=== PATIENT | male | born 1960 ===

== ENCOUNTER 2025-02-04 13:36 | Inpatient (IN) | payer MEDICARE, MEDICAID, SELFPAY ==
--- OUTSIDE RECORDS SUMMARY | 2025-01-27 12:17 | XMS_ITS | Encounter Summary ---
Author Organization [facility] Address [address] [place] [id number] Care Team Providers Care Retail Presentation Specialist Name Role Phone System, Provider Not In Primary Care Provider Un available Reason for Referral * Amb Referral: Home Health (Routine) - Authorized Specialty Diagnoses / Procedures Referred By Kimber t Referred To Contact Home Health Services Diagnoses Acute hyperkalemia Gelacio Garcia MD [address] [place] [id number] Phone: tel: fax: Referral ID Status Reason Start Date Expiration Date V isits Requested Visits Authorized [id number] Authorized 01/30/2025 04/25/2026 999 999 Scheduling Instructions FOR HOME HEALTH SERVICES, PLEASE HAVE THE FOLLOWING AVAILABLE AT THE TIME OF YOUR FIRST HOME VISIT: - All Medication Bottles *(in order for the medication to be reviewed for your education and safety. Medication errors are a significant factor in re-hospitalizations that we want to prevent.)* - Including non-prescription medications that you may not take every day - New prescription medications - Prescription Creams, Lotions, Eye Drops - Current Insurance Card - Any Health Care Proxy or Advanced Directive paperwork - Any assistive devices that you currently use such as cane, glasses and hearing aids if applicable - Any wound care supplies sent home with you from doctor s office or hospital if applicable YOU WILL RECEIVE A CALL TO SET UP YOUR HOME HEALTH VISIT THAT MAY COME FROM AN U NKNOWN TELEPHONE NUMBER FROM ONE OF OUR NURSES OR THERAPISTS. PLEASE HAVE PETS SECURED IN AN AREA AWAY FROM WHERE PATIENT WILL BE RECEIVING CARE. CALL OUR AGENCY IF YOU HAVE ANY QUESTIONS. Reason for Visit * Reason Comments Weakness Fall * Auth/Cert (Routine) Specialty Diagnoses / Procedures Referred By Contac t Referred To Contact Diagnoses Hyperkalemia Acute hyperkalemia Acute blood loss anemia Transaminitis History of noncompliance with medical treatment Pleural effusion, right Renal cyst, tonto apache, hemorrhage Effusion of left knee Multiple falls Contusion of left knee, initial encounter Closed fracture of multiple ribs of right side, initial encounter Alcohol use disorder Depression, unspecified depression type Procedures x Emma Siddiqi MD [address] [place] [id number] Phone: tel: [phone] fax: Referral ID Status Reason Start Date Expiration Date Visits Re quested Visits Authorized [id number] 1 1 Encounter Details Date Type Department Care Team (Latest Contact Info) Description 01/27/2025 12:17 PM EST - 01/30/2025 3:29 PM EST Hospital Encounter [address] [id number] Leticia Gilmore MD [address] [place] [id number] Emma Siddiqi MD [address] [place] [phone] (Work) Gelacio Garcia MD [address] [place] [id number] Acute hyperkalemia (Primary Dx); History of noncompliance with medical treatment; Depression, unspecified depression type; Alcohol use disorder; Multiple falls; Contusion of left knee, initial encounter; Closed fracture of multiple ribs of right side, initial encounter; Pleural effusion, right; Renal cyst, tonto apache, hemorrhage; Acute blood loss anemia; Transaminitis; Effusion of left knee; Tachycardia; Abnormal electrocardiography Discharge Disposition: Home-Health Care [facility] [place] Social History Tobacco Use Types Packs/Day Years Used Date Smoking Tobacco: Every Day Cigarettes Alcohol Use Standard Drinks/Week Comments Yes 28 (1 standard drink = 0.6 oz pu re alcohol) 1 1/2 pints daily Social Connection and Isolation Panel Answer Date Recorded Frequency of Communication with Friends and Fami ly Not on file 03/10/2024 Frequency of Social Gatherings with Friends and Family Not on file 03/10/2024 Attends Anabaptist Services Not on file 03/10 Active Member of Clubs or Organizations Not on f ile 03/10/2024 Attends Club or Organization Meetings Not on giuseppe e 03/10/2024 Are you , , di vorced, , never , or living with a partner? Never 03/10/2024 Exercise Vital Sign Answer Date Recorde d On average, how many days pe r week do you engage in moderate to strenuous exercise (like a brisk walk)? 0 days Minutes of Exercise per Session Not on file 02/10/2023 Humiliation, Afraid, Rape, and Kick questionnair e Answer Date Recorded Within the last year, have y ou been afraid of your partner or ex-partner? No 01/28/2025 Within the last year, have y ou been humiliated or emotionally abused in other ways by your partner or ex-partner? No Within the last year, have y ou been kicked, hit, slapped, or otherwise physically hurt by your partner or ex-partner? No 01/28/2025 Within the last year, have y ou been raped or forced to have any kind of sexual activity by your partner or ex-partner? No 01/28/2025 AUDIT-C Answer Date Recorded Q1: How often do you have a drink containing alcohol? 4 or more times a week 01/28/2025 Q2: How many drinks containi ng alcohol do you have on a typical day when you are drinking? 7 to 9 Q3: How often do you have si x or more drinks on one occasion? Weekly 01/28/2025 Overall Financial Resource Strain (CARDIA) Answe r Date Recorded How hard is it for you to pa y for the very basics like food, housing, medical care, and heating? Somewhat hard 01/28/[address] [facility] Health - Occupational Stress Questionnaire Answer Date Recorded Do you feel stress - tense, restless, nervous, or anxious, or unable to sleep at night because your mind is troubled all the time - these days? Rather much 01/28/2025 Hunger Vital Sign Answer Date Recorded Within the past 12 months, y ou worried that your food would run out before you got the money to buy more. Never true 01/29/20 Within the past 12 months, t he food you bought just didn't last and you didn't have money to get more. Never true 01/28/2025 PRAPARE - Transportation Answer Date Re corded In the past 12 months, has l ack of transportation kept you from medical appointments or from getting medications? No 07/2024 In the past 12 months, has l ack of transportation kept you from meetings, work, or from getting things needed for daily living? No 01/28/2025 Housing Stability Vital Sign Answer Pascual e Recorded In the last 12 months, was t here a time when you were not able to pay the mortgage or rent on time? Yes 01/28/2025 Number of Times Moved in the Last Year Not on fi le 01/28/2025 At any time in the past 12 m [facility], were you homeless or living in a care home (including now)? Yes 01/28/2025 B1300 Health Literacy Answer Date Recor ded How often do you need to hav e someone help you when you read instructions, pamphlets, or other written material from your doctor or pharmacy? Sometimes 01/28/2025 [facility] Utilities Answer Date Recorded In the past 12 months has th e electric, gas, oil, or water company threatened to shut off services in your home? Patient declined 01/27/2025 Food Insecurity Answer Date Recorded Within the past 12 months, y ou worried that your food would run out before you got the money to buy more. Never true 01/29/20 Within the past 12 months, t he food you bought just didn't last and you didn't have money to get more. Never true 01/28/2025 Intimate Partner Violence Answer Date R ecorded Within the last year, have y ou been humiliated or emotionally abused in other ways by your partner or ex-partner? No Within the last year, have y ou been afraid of your partner or ex-partner? No 01/28/2025 Within the last year, have y ou been kicked, hit, slapped, or otherwise physically hurt by your partner or ex-partner? No 01/28/2025 Within the last year, have y ou been raped or forced to have any kind of sexual activity by your partner or ex-partner? No 01/28/2025 Housing Stability Answer Date Recorded Unstable Housing in the Last Year Not on file 01/28/2025 In the last 12 months, was t here a time when you were not able to pay the mortgage or rent on time? Yes 01/28/2025 [address] of Places Lived in the Last Year Not on f ile 01/28/2025 AUDIT C Answer Date Recorded How often have you had a dri nk containing alcohol, in the past year? 4 01/27/2025 How many standard drinks con taining alcohol have you had on a typical day when you are drinking, in the past year? 3 1 03/29/2024 How often have you had six o r more drinks on one occasion, in the past year? 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 Not on file Not on fi le Not on file documented as of this encounter Last Filed Vital Signs Vital Sign Reading Time Taken Comments Blood Pressure 110/75 01/30/2025 2:00 PM EST Pulse 81 01/30/2025 2:00 PM EST Temperature 36.8 C (98.2 F) 01/30/2025 2:00 PM EST Respiratory Rate 18 01/30/2025 2:00 PM EST Oxygen Saturation 97% 01/30/2025 2:00 PM EST Inhaled Oxygen Concentration - - Weight 79.8 kg (175 lb 14.4 oz) 01/30/2025 6:00 AM EST Height 177.8 cm (5' 10 ) 01/27/2025 12: 21 PM EST Body Mass Index 25.24 01/27/2025 12:21 PM EST documented in this encounter Functional Status * AUDIT-C Score Answer Date of Assessment Author 10 01/28/2025 3:16 PM Elsa Delacruz LICSW * Question Answer Date of Assessment Author Q1: How often do you have a drink containing alcohol? 4 or more times a week 01/28/2025 3:16 PM Elsa Leigh LICSW Q2: How many drinks containing alcohol do you have on a typical day when you are drinking? 7 to 9 01/28/2025 3:16 PM Elsa Leigh LICSW Q3: How often do you have six or more drinks on one occasion? Weekly 01/28/2025 3:16 PM Elsa Leigh LICSW * Do you have serious difficulty walking or climbing stairs? Answer Date of Assessment Author Yes 01/27/2025 12:32 PM Luzma Alex * Do you have difficulty dressing or bathing? Answer Date of Assessment Author No 01/27/2025 12:32 PM Luzma Alex * Because of a physical, mental, or emotional condition, do you have difficulty doing errands alone such as visiting the doctor? Answer Date of Assessment Author No 01/27/2025 12:32 PM Luzma Alex documented as of this encounter Discharge Instructions * Discharge Instr-Facility, Services & DME* Mary Garza RN - 01/29/2025 1:45 PM EST [facility] [employer] (EXTERNAL) [address] [facility] [address] [place] [address] P- F- * Attachments The following attachments cannot be sent through Care Everywhere. * Planning to Quit Smoking (Cymro) documented in this encounter Medications at Time of Discharge ferrous sulfate 324 mg (65 mg iron) TbEC Take 1 tablet (324 mg total) by mouth daily with breakfast. folic acid (FOLVITE) 1 MG tablet Take 1 tablet (1 mg total) by mouth daily. 14 tablet 02/28/2023 gabapentin (NEURONTIN) 100 MG capsule Take 1 capsule (100 mg total) by mouth at bedtime. 30 capsule 01/30/2025 hydrOXYzine HCL (ATARAX) 10 MG tablet Take 1 tablet (10 mg total) by mouth every 8 hours as needed for anxiety. 90 tablet 03/12/2024 lamoTRIgine (LaMICtal) 25 MG tablet Take 1 tablet (25 mg total) by mouth in the morning. LOKELMA 5 gram PwPk powder packet Take 1 packet (5 g total) by mouth daily with breakfast. 07/07/2024 melatonin 3 mg Tab tablet Take 1 tablet (3 mg total) by mouth every evening. 30 tablet 03/12/2024 midodrine (PROAMATINE) 2.5 MG tablet Take 1 tablet (2.5 mg total) by mouth daily as needed (sbp <100mm Hg). 30 tablet 12/29/2024 OLANZapine (ZyPREXA) 10 MG tablet Take 1 tablet (10 mg total) by mouth every morning & every evening. 20 tablet 04/21/2024 REXULTI 3 mg Tab Take 1 tablet (3 mg total) by mouth in the morning. 12/06/2023 sertraline (ZOLOFT) 100 MG tablet Take 1 tablet (100 mg total) by mouth every morning & every evening. 20 tablet 04/21/2024 sevelamer carbonate (RENVELA) 800 mg tablet Take 1 tablet (800 mg total) by mouth 3 times a day with meals. 30 tablet 04/21/2024 thiamine (Vitamin B1) 100 MG tablet Take 1 tablet (100 mg total) by mouth in the morning. 07/16/2023 acetaminophen (TYLENOL) 500 MG tablet Take 1 tablet (500 mg total) by mouth every 6 hours as needed for pain. aspirin 81 MG EC tablet Take 1 tablet (81 mg total) by mouth daily for 30 days. 30 tablet 04/21/2024 clopidogreL (PLAVIX) 75 mg tablet Take 1 tablet (75 mg total) by mouth daily for 20 days. 20 tablet 04/22/2024 metoprolol tartrate (LOPRESSOR) 25 MG tablet Take 0.5 tablets (12.5 mg total) by mouth in the morning and 0.5 tablets (12.5 mg total) before bedtime. 30 tablet 01/30/2025 pantoprazole (PROTONIX) [address] tablet Take 1 tablet (40 mg total) by mouth every morning & every evening for 30 days. 30 tablet 04/21/2024 documented as of this encounter Progress Notes * JAS Arteaga - 01/30/2025 2:51 PM EST Care Coordination - Discharge Planning Note Patient: Sushant Christianson : 1960 Attending: Gelacio Garcia MD Admit Date: 01/27/2025 Inpatient Status Admit Date: 01/27/25 Primary Care Physician: Provider Not In System The patient will be discharged home today with his [facility] svs resuming- svs booked in [facility], d/c pwk faxed to [facility] as requested. Pt up at edge of bed, dressed and pleased with plan. Discussedhis work with PT today, he declines STR, states he will only head home. He states he can manage the2 steps into his apt, states his GF Estela will be there to meet him, states he has apt keys on him as well. Pt states his T/Th/Sat [place] rides are set up for 11:45a pick ups, plans to go to [place] tomorrow. Sobriety work encouraged, pt has met with and has resources. Pt to f/u with [facility] and his [facility] outpt mental health providers. Patient Goal(s): to stay well Preference for discharge: home The plan was discussed with the patient and they are in agreement with the plan. Medicare IM Notice was given to the patient. The discharge information was faxed/conveyed to the community provider. The MD and Nurse was alerted to the plan. Transport arranged: PT1 secured online, chair van transport booked through [facility]. JAS Arteaga 01/30/2025 2:51 PM * Annette Stanton MD - 01/30/2025 1:53 PM EST Nephrology Daily progress note Date of Service: 01/30/2025 Patient: Sushant Christianson : 1960 Admission Date: 01/27/2025 CSN: [id number] Room/Bed: 316/1 Reason For Consultation: Hyperkalemia Subjective and interval history: Patient has no complaint. Hemodialysis yesterday with UF 2.8 L. Synopsis: Sushant Christianson is a 65 y.o. male with past medical history significant for ESRD on hemodialysis, polysubstance abuse including cocaine and alcohol, COPD, history of alcohol withdrawal syndrome and DTs presented emergency with fall and generalized weakness. Patient reported his last session of hemodialysis was on last Saturday 01/20 and missed 2 sessions since then. He felt very depressedand did not want to leave the house and not going to dialysis center. Patient denies shortness of breath at rest or swelling of her extremities. ED course: Blood pressure 171/118 mmHg, pulse rate 85 bpm, respiration rate 18/min, temperature 97.8, saturation 98% on room air. Laboratory findings reveal elevated potassium level 6.0, BUN of 95 and creatinine of 15.4. EKG revealed normal sinus rhythm and left axis deviation, right bundle branch block. No EKG changes for hyperkalemia. Patient was given medical treatment for hyperkalemia including insulin, dextrose, calcium gluconate and Lokelma. Nephrology History: ESRD, documentation unavailable, but presumed hypertension/microvascular disease Started on in center hemodialysis 02/14, , Sunday schedule at [place] [facility] Followed by Dr. Genevieve Grimaldo as an outpatient Uses a tunneled catheter for dialysis access Still with fairly good urine output and missed several dialysis treatments. Current Medications: Scheduled Meds:Scheduled Medications[1] Continuous Infusions:Infusions Meds[2] PRN Meds:.PRN Medications[3] Medications Prior to Admission: Prescriptions Prior to Admission[4] Allergies: Allergies[5] Review of Systems: See history of present illness. No gross hematuria, no rash. General: Denies significant weight change, fatigue, fevers, chills, or sweats Skin: Denies any rashes or notable skin lesions CV: Denies chest pain, palpitations, claudication, edema Pulm: Denies SOB, cough, hemoptysis GI: Denies nausea, vomiting, abdominal pain, diarrhea Neuro: Denies headache, visual changes, paresthesias, dizziness, lightheadedess, gait instability, weakness, or falls : Denies back or flank pain, hematuria, dysuria Remainder of ROS negative. Physical Exam: Min/Max vitals over last 24 hours: BP Min: 118/72 Max: 157/90 Temp Min: 97.9 ??F (36.6 ??C) Max: 98.7 ??F (37.1 ??C) Pulse Min: 75 Max: 114 Resp Min: 18 Max: 22 SpO2 Min: 93 % Max: 99 % Weight Min: 79.8 kg (175 lb 14.4 oz) Max: 79.8 kg (175 lb 14.4 oz) Admission VS: BP (!) 157/90 (BP Location: Left arm, Patient Position: Lying) Pulse 79 Temp 98.2??F (36.8 ??C) (Axillary) Resp 18 Ht 1.778 m (5' 10 ) Wt 79.8 kg (175 lb 14.4 oz) SpO2 98% BMI 25.24 kg/m?? Pain Location: Head (01/30/25 0008) O2 Device: None (Room air) (01/30/25 1000) SpO2: 98 % (01/30/25 0850) General Appearance: Alert, cooperative, no distress Eyes: pale, not icteric HEENT: No JVD Lungs: Bilateral air entry +, no wheezing, no rales or rhonchi Heart: Regular rate and rhythm, No murmur, no gallop Abdomen: Soft, non-tenderness or rebound tenderness Extremities: No edema Pulses: intact Neurologic: Alert, Awake, Oriented x 4, no focal Access: Right IJ tunneled dialysis catheter Labs, Imaging & Other Studies: Labs: Results from last 7 days Lab Units 01/30/25 0534 01/29/25 0407 01/28/25 0517 WBC K/uL 8.96 6.28 6.65 HEMOGLOBIN g/dL 8.0* 8.3* 7.8* HEMATOCRIT % 26.1* 26.3* 24.2* PLATELETS K/uL 261 261 240 Results from last 7 days Lab Units 01/30/25 0534 01/29/25 0407 01/28/25 0517 01/27/25 1538 01/27/25 1240 SODIUM mmol/L 138 138 139 < > 137 POTASSIUM mmol/L 4.9 3.5 4.6 < > 6.0* CHLORIDE mmol/L 100 100 100 < > 96* CO2 mmol/L 25 27 27 < > 23* BUN mg/dL 45* 13 40* < > 95* CREATININE mg/dL 7.10* 3.20* 8.40* < > 15.40* CALCIUM mg/dL 9.1 9.5 9.3 < > 9.1 TOTAL PROTEIN g/dL -- -- 6.8 -- 7.5 BILIRUBIN TOTAL mg/dL -- -- 0.4 -- 0.4 ALK PHOS U/L -- -- 316* -- 382* ALT U/L -- -- 40 -- 54* AST U/L -- -- 31 -- 52* GLUCOSE mg/dL 91 100 103* < > 113* < > = values in this interval not displayed. Results from last 7 days Lab Units 01/27/25 1407 APTT s 33 INR 1.1 Lab Results Component Value Date ALT 40 01/28/2025 AST 31 01/28/2025 GGT 55 02/14/2010 ALKPHOS 316 (H) 01/28/2025 BILITOT 0.4 01/28/2025 ALB 3.7 01/28/2025 Lab Results Component Value Date CRP 182.0 (H) 08/06/2023 UA: Lab Results Component Value Date COLORU Yellow 01/28/2025 CLARITYU Clear 01/28/2025 LABPH 8.0 01/28/2025 PROTEINUR 100 mg/dL (A) 01/28/2025 GLUCOSEU 50 mg/dL (A) 01/28/2025 KETONESU 5 mg/dL (A) 01/28/2025 BLOODU Negative 01/28/2025 LEUKOCYTEUR Trace (A) 01/28/2025 NITRITE Negative 01/28/2025 WBCU 13 (H) 01/28/2025 RBCU 1 01/28/2025 HYALINECAST 2-3 (A) 12/14/2022 BACTERIA Few (A) 01/28/2025 Results for orders placed or performed during the hospital encounter of 01/27/25 Culture, Aerobic, Urine Collection Time: 01/28/25 1:46 AM Specimen: Urine, Mid-stream Collection Result Value Ref Range Culture <10,000 Gram Positive [facility]: XR Knee 4+ Vw Left (Trauma) Result Date: 01/27/2025 Soft tissue swelling. No acute fracture identified. CT Chest Abdomen Pelvis Trauma With Contrast Result Date: 01/27/2025 1. No convincing evidence of acute traumatic injury. 2. Subacute fractures of the right posterior 9-11th ribs with small effusion. 3. Left renal cyst which previously appeared simple, now hemorrhagic. Rupture is suspected (perinephric fluid and fluid about tail of the pancreas). No active bleeding.4. Somewhat collapsed and featureless transverse colon could reflect colitis. 5. Other findings as above. CT Head Anticoag Without Contrast Result Date: 01/27/[address]: No acute intracranial process. Generalized tissue loss, more than expected for the patient's age. Small-vessel ischemic disease, as before. CT of the cervical spine: Limited study secondary to patient motion. No acute displaced fracture. Reversal of the normal cervical lordosis, as before,likely related to degenerative disc disease. Multilevel degenerative disc disease. Facet joint hypertrophy and narrowing of the neural foramina at multiple levels. Partially visualized right-sided central venous catheter. CT Cervical Spine WO IV Contrast Result Date: 01/27/[address]: No acute intracranial process. Generalized tissue loss, more than expected for the patient's age. Small-vessel ischemic disease, as before. CT of the cervical spine: Limited study secondary to patient motion. No acute displaced fracture. Reversal of the normal cervical lordosis, as before,likely related to degenerative disc disease. Multilevel degenerative disc disease. Facet joint hypertrophy and narrowing of the neural foramina at multiple levels. Partially visualized right-sided central venous catheter. Assessment & Plan: Sushant Christianson is a 65 y.o. male who presents with generalized weakness and missed hemodialysis for 2 sessions noted to have hyperkalemia and uremia. ESRD on hemodialysis Sunday, , Sunday Hyperkalemia Uremia Benign hypertensive kidney disease Anemia due to ESRD Assessment: Stable hemodialysis. Patient blood pressure is elevated above 140/90 mmHg and no sign of volume overload. Recommendations: Will arrange hemodialysis on Sunday, , Sunday. Metabolic profile and CBC will be reviewed on a daily basis. HD: UF 2-3 liters as tolerated. Time 3.0 hours. Access right IJ tunneled dialysis catheter Dialysate 2 K, 2.5 Ca. Dialyzer F180 Blood flow (Qb) 400 ml/min, Dialysate flow (Qd) 800 ml/min Anticoagulation none ESRD related issues: 1. Anemia of chronic renal disease -Retacrit 00152 units IV on next HD 2. Electrolytes / acid-base - adequately controlled on intermittent hemodialysis 3. Blood pressure / volume -blood pressure elevated. Please resume home blood pressure medications. 4. Renal osteodystrophy / calcium / phosphorus - follow phosphorus every 2-3 days 5. Medications - dose for ESRD/hemodialysis Thank you very much for involving us in the care of your patient. I will continue to follow along as consult service and please let me know if I can be at all helpful during the remainder of hospitaladmission. Signed by: Annette Stanton MD [1] aspirin, 81 mg, Oral, Daily atorvaSTATin, 80 mg, Oral, QHS brexpiprazole, 3 mg, Oral, Daily clopidogreL, 75 mg, Oral, Daily epoetin naif-epbx, 10,000 Units, Intravenous, QTuThSa ferrous sulfate, 325 mg, Oral, Daily with breakfast multivitamin with minerals tablet, 1 tablet, Oral, Daily And folic acid, 1 mg, Oral, Daily gabapentin, 100 mg, Oral, QHS heparin (porcine), 5,000 Units, Subcutaneous, BID (0900,2100) lamoTRIgine, 25 mg, Oral, Daily melatonin, 6 mg, Oral, QPM metoprolol tartrate, 25 mg, Oral, BID OLANZapine, 10 mg, Oral, BID pantoprazole, 40 mg, Oral, BID sodium chloride, 3 mL, Intravenous, Q12H SUZETTE sertraline, 100 mg, Oral, BID sevelamer carbonate, 800 mg, Oral, TID with meals thiamine, 200 mg, Intravenous, BID Followed by [START ON 01/31/2025] thiamine, 100 mg, Oral, Daily [2] [3] acetaminophen hydrOXYzine HCL [] LORazepam FOLLOWED BY LORazepam [] LORazepam FOLLOWED BY LORazepam midodrine Insert and Maintain Peripheral IV AND sodium chloride AND sodium chloride [4] Medications Prior to Admission Medication Sig Dispense Refill Last Dose/Taking acetaminophen (TYLENOL) 500 MG tablet Take 1 tablet (500 mg total) by mouth every 6 hours as needed. aspirin 81 MG EC tablet Take 1 tablet (81 mg total) by mouth daily for 30 days. 30 tablet 0 atorvaSTATin (LIPITOR) 80 MG tablet Take 1 tablet (80 mg total) by mouth at bedtime for 30 days. 30tablet 0 clopidogreL (PLAVIX) 75 mg tablet Take 1 tablet (75 mg total) by mouth daily for 20 days. 20 tablet0 ferrous sulfate 324 mg (65 mg iron) TbEC Take 1 tablet (324 mg total) by mouth daily with breakfast. folic acid (FOLVITE) 1 MG tablet Take 1 tablet (1 mg total) by mouth daily. 14 tablet 0 hydrOXYzine HCL (ATARAX) 10 MG tablet Take 1 tablet (10 mg total) by mouth every 8 hours as needed for anxiety. 90 tablet 0 lamoTRIgine (LaMICtal) 25 MG tablet Take 1 tablet (25 mg total) by mouth in the morning. LOKELMA 5 gram PwPk powder packet Take 1 packet (5 g total) by mouth daily with breakfast. melatonin 3 mg Tab tablet Take 1 tablet (3 mg total) by mouth every evening. (Patient taking differently: Take 2 tablets (6 mg total) by mouth every evening.) 30 tablet 0 midodrine (PROAMATINE) 2.5 MG tablet Take 1 tablet (2.5 mg total) by mouth daily as needed (sbp <100mm Hg). 30 tablet 0 OLANZapine (ZyPREXA) 10 MG tablet Take 1 tablet (10 mg total) by mouth every morning & every evening. 20 tablet 0 pantoprazole (PROTONIX) [address] tablet Take 1 tablet (40 mg total) by mouth every morning & every evening for 30 days. 30 tablet 0 REXULTI 3 mg Tab Take 1 tablet (3 mg total) by mouth in the morning. sertraline (ZOLOFT) 100 MG tablet Take 1 tablet (100 mg total) by mouth every morning & every evening. 20 tablet 0 sevelamer carbonate (RENVELA) 800 mg tablet Take 1 tablet (800 mg total) by mouth 3 times a day with meals. 30 tablet 0 thiamine (Vitamin B1) 100 MG tablet Take 1 tablet (100 mg total) by mouth in the morning. [5] No Known Allergies * Rabia Mejia RN - 01/30/2025 1:00 PM EST Case Management - Progress Note Patient: Sushant Christianson : 1960 Attending: Gelacio Garcia MD Admit Date: 01/27/2025 Inpatient Status Admit Date: 01/27/25 Primary Care Physician: Provider Not In System Record reviewed. Participated in Interdisciplinary care rounds and discussed medical readiness withthe treatment team. Expected Discharge Date: 01/30/2025 Action: met with patient at bedside, anticipate clear for dc today pending PT eval, he is in agreement with dc home active with [facility] was updated in [facility] , chair car booked for ride home, working with case as well see their note today for more details. Service/Anticipated D/C Plan: Home w services RABIA Mejia RN 01/30/2025 * Gelacio Garcia MD - 01/29/2025 4:09 PM EST DAILY PROGRESS NOTE Date of Service: 01/29/2025 Patient: Sushant Christianson : 1960 CSN: [id number] SUBJECTIVE Feels better, denies withdrawals, refusing str Pertinent positives and negatives were discussed above. All other systems were reviewed and were found to be negative. OBJECTIVE Vital signs in last 24 hours BP Min: 118/72 Max: 178/96 Temp Min: 97.4 ??F (36.3 ??C) Max: 98.6 ??F (37 ??C) Pulse Min: 84 Max: 114 Resp Min: 18 Max: 18 SpO2 Min: 93 % Max: 99 % I/O (Last 24 hours) at 01/29/2025 1609 Last data filed at 01/29/2025 0811 Intake 523 ml Output 3200 ml Net -2677 ml SpO2: 99 % O2 Device: None (Room air) PHYSICAL EXAM Gen: AAOx3 Lung: clear to auscultation Heart: regular rate rhythm Abdomen: soft, non-tender,non distended Ext: no edema Neuro: speech is normal LABORATORY Results from last 7 days Lab Units 01/29/25 0407 01/28/25 0517 01/27/25 1240 WBC K/uL 6.28 6.65 8.59 HEMOGLOBIN g/dL 8.3* 7.8* 8.9* HEMATOCRIT % 26.3* 24.2* 27.6* PLATELETS K/uL 261 240 295 Results from last 7 days Lab Units 01/29/25 0407 01/28/25 0517 01/27/25 1538 01/27/25 1240 SODIUM mmol/L 138 139 136 137 POTASSIUM mmol/L 3.5 4.6 5.4* 6.0* CHLORIDE mmol/L 100 100 95* 96* CO2 mmol/L 27 27 24 23* BUN mg/dL 13 40* 97* 95* CREATININE mg/dL 3.20* 8.40* 15.20* 15.40* CALCIUM mg/dL 9.5 9.3 9.2 9.1 TOTAL PROTEIN g/dL -- 6.8 -- 7.5 BILIRUBIN TOTAL mg/dL -- 0.4 -- 0.4 ALK PHOS U/L -- 316* -- 382* ALT U/L -- 40 -- 54* AST U/L -- 31 -- 52* GLUCOSE mg/dL 100 103* 143* 113* Results from last 7 days Lab Units 01/27/25 1407 APTT s 33 INR 1.1 UA Lab Results Component Value Date COLORU Yellow 01/28/2025 CLARITYU Clear 01/28/2025 LABPH 8.0 01/28/2025 PROTEINUR 100 mg/dL (A) 01/28/2025 GLUCOSEU 50 mg/dL (A) 01/28/2025 KETONESU 5 mg/dL (A) 01/28/2025 BLOODU Negative 01/28/2025 LEUKOCYTEUR Trace (A) 01/28/2025 NITRITE Negative 01/28/2025 WBCU 13 (H) 01/28/2025 RBCU 1 01/28/2025 HYALINECAST 2-3 (A) 12/14/2022 BACTERIA Few (A) 01/28/2025 Microbiology Results for orders placed or performed during the hospital encounter of 01/27/25 Culture, Aerobic, Urine Collection Time: 01/28/25 1:46 AM Specimen: Urine, Mid-stream Collection Result Value Ref Range Culture <10,000 Gram Positive [facility] RADIOLOGY Results for orders placed or performed during the hospital encounter of 01/27/25 CT Head Anticoag Without Contrast Narrative EXAM DESCRIPTION: CT HEAD ANTICOAG WO CONTRAST; CT CERVICAL SPINE WO CONTRAST CLINICAL HISTORY: 65-year-old man brought in by ambulance from home with failure to thrive. Depression. Frequent falls. This patient takes blood thinners. Patient has not been to dialysis. ETOH. Sleep issues. Bruising on legs and left side of the chest. Last dialysis on Sunday of last week. COMPARISON: Head CT from 12/23/2024. CT of the cervical spine from 12/02/2024. TECHNIQUE: Contiguous 5 mm axial images were obtained through the head and cervical spine. Subsequently sagittal and coronal reconstructions were performed. FINDINGS: Head CT: The ventricles, sulci and cisterns remain prominent, consistent with generalized tissue loss, more than expected for the patient's age. There is no mass, mass effect or hemorrhage. No evidence of an acute territorial infarct. No extra-axial fluid collection. There is persistent patchy low attenuation in the periventricular and subcortical white matter which is nonspecific but probably reflects the sequela of small-vessel ischemic disease in a patient of this age. The visualized paranasal sinuses and mastoid air cells are well-aerated. No air-fluid levels to suggest acute sinusitis. The visualized globes appear intact. There is no evidence of an acute displaced skull fracture. CT of the cervical spine: These images are slightly degraded by patient motion. The bones are well mineralized. The normal vertebral body heights are maintained. No prevertebral soft tissue swelling. No acute displaced fracture. There is reversal of the normal cervical lordosis, as before. There is multilevel degenerative disc disease with endplate osteophytes and loss of the normal intervertebral disc spaces diffusely throughout the cervical spine but most pronounced at C2 through C6. There is bilateral facet joint hypertrophy with narrowing of the neural foramina at multiple levels. The dens appears intact. The lateral masses of C1 are normally located. There is a partially visualized central venous catheter in the right upper chest. There is atherosclerosis at the left carotid bifurcation. The thyroid gland is not well visualized. The lung apices are well-aerated. There are multiple small cervical lymph nodes in the anterior and posterior cervical triangles. Impression Head CT: No acute intracranial process. Generalized tissue loss, more than expected for the patient's age. Small-vessel ischemic disease, as before. CT of the cervical spine: Limited study secondary to patient motion. No acute displaced fracture. Reversal of the normal cervical lordosis, as before, likely related to degenerative disc disease. Multilevel degenerative disc disease. Facet joint hypertrophy and narrowing of the neural foramina at multiple levels. Partially visualized right-sided central venous catheter. CT Cervical Spine WO IV Contrast Narrative EXAM DESCRIPTION: CT HEAD ANTICOAG WO CONTRAST; CT CERVICAL SPINE WO CONTRAST CLINICAL HISTORY: 65-year-old man brought in by ambulance from home with failure to thrive. Depression. Frequent falls. This patient takes blood thinners. Patient has not been to dialysis. ETOH. Sleep issues. Bruising on legs and left side of the chest. Last dialysis on Sunday of last week. COMPARISON: Head CT from 12/23/2024. CT of the cervical spine from 12/02/2024. TECHNIQUE: Contiguous 5 mm axial images were obtained through the head and cervical spine. Subsequently sagittal and coronal reconstructions were performed. FINDINGS: Head CT: The ventricles, sulci and cisterns remain prominent, consistent with generalized tissue loss, more than expected for the patient's age. There is no mass, mass effect or hemorrhage. No evidence of an acute territorial infarct. No extra-axial fluid collection. There is persistent patchy low attenuation in the periventricular and subcortical white matter which is nonspecific but probably reflects the sequela of small-vessel ischemic disease in a patient of this age. The visualized paranasal sinuses and mastoid air cells are well-aerated. No air-fluid levels to suggest acute sinusitis. The visualized globes appear intact. There is no evidence of an acute displaced skull fracture. CT of the cervical spine: These images are slightly degraded by patient motion. The bones are well mineralized. The normal vertebral body heights are maintained. No prevertebral soft tissue swelling. No acute displaced fracture. There is reversal of the normal cervical lordosis, as before. There is multilevel degenerative disc disease with endplate osteophytes and loss of the normal intervertebral disc spaces diffusely throughout the cervical spine but most pronounced at C2 through C6. There is bilateral facet joint hypertrophy with narrowing of the neural foramina at multiple levels. The dens appears intact. The lateral masses of C1 are normally located. There is a partially visualized central venous catheter in the right upper chest. There is atherosclerosis at the left carotid bifurcation. The thyroid gland is not well visualized. The lung apices are well-aerated. There are multiple small cervical lymph nodes in the anterior and posterior cervical triangles. Impression Head CT: No acute intracranial process. Generalized tissue loss, more than expected for the patient's age. Small-vessel ischemic disease, as before. CT of the cervical spine: Limited study secondary to patient motion. No acute displaced fracture. Reversal of the normal cervical lordosis, as before, likely related to degenerative disc disease. Multilevel degenerative disc disease. Facet joint hypertrophy and narrowing of the neural foramina at multiple levels. Partially visualized right-sided central venous catheter. CT Chest Abdomen Pelvis Trauma With Contrast Narrative EXAM DESCRIPTION: CT CHEST ABDOMEN PELVIS TRAUMA W CONTRAST CLINICAL HISTORY: Falls. Failure to thrive. COMPARISON: CXR dated 12/26/2024. CT of the abdomen pelvis dated 12/20/2022. CONTRAST: 100ml of Omnipaque 350 were administered. TECHNIQUE: The standard 5 mm sequential axial images were obtained through the chest, abdomen and pelvis. Coronal and sagittal reconstructions were also obtained. The pelvis was imaged to completely assess for acute pathology. FINDINGS: Lung tian: The lungs are well aerated and clear. No significant lung nodules or masses are identified. No interstitial abnormalities are identified. There is no evidence of bronchiectasis. There is a small right pleural effusion. No pneumothorax. Heart and Mediastinum: The heart and great vessels are normal for age. No mediastinal or hilar lymphadenopathy is identified. Airways: The trachea and central bronchi are widely patent and clear without filling defects identified. Neck structures: There is a thyroid goiter. Hepatobiliary: The liver is normal. There is cholelithiasis. The intrahepatic and extrahepatic bile ducts are normal. There is calcification of the pancreas as could be seen with chronic pancreatitis.There is stranding and fluid about the tail of the pancreas, which appears secondary to ruptured left renal cyst. The spleen is normal. Genitourinary: Right adrenal gland is unremarkable. There is a 1.4 cm left adrenal nodule, unchanged. The kidneys are atrophic bilaterally. There is a 3.3 cm left renal cyst which appears acutely hemorrhagic with rupture. No active bleeding seen. No renal masses or stones. No hydronephrosis. The pelvic organs and bladder are unremarkable. Bowel and peritoneal cavity: No evidence of appendicitis. The transverse colon appears somewhat collapsed and featureless. There is diverticulosis. Elsewhere, no bowel related obstruction or perforation is detected. No ascites or peritoneal fluid collections are identified. There is no evidence of free intraperitoneal air. No abdominal wall hernia is identified. Retroperitoneum: There is no evidence of retroperitoneal or pelvic lymphadenopathy. The retroperitoneal vascular structures appear normal. Bones and soft tissues: There are subacute fractures of the right posterior 9-11th ribs. There is hardware in the right hip. There is a wedge deformity of T8. This appears to be chronic. There is gynecomastia. Impression 1. No convincing evidence of acute traumatic injury. 2. Subacute fractures of the right posterior 9-11th ribs with small effusion. 3. Left renal cyst which previously appeared simple, now hemorrhagic. Rupture is suspected (perinephric fluid and fluid about tail of the pancreas). No active bleeding. 4. Somewhat collapsed and featureless transverse colon could reflect colitis. 5. Other findings as above. XR Knee 4+ Vw Left (Trauma) Narrative EXAM DESCRIPTION: XR KNEE 4+ VW LEFT CLINICAL HISTORY: Left knee pain. Trauma. COMPARISON: No prior studies available for comparison. TECHNIQUE: 4 views submitted FINDINGS: The bones are intact and normally aligned. There is soft tissue swelling. There is no significant joint effusion. Bones are demineralized. The joint spaces appear normal. Impression Soft tissue swelling. No acute fracture identified. MEDICATIONS Scheduled Meds:Scheduled Medications[1] Continuous Infusions:Infusions Meds[2] PRN Meds:.PRN Medications[3] ASSESSMENT/PLAN 65 y.o. male PMH significant for ESRD on HD, polysubstance abuse with cocaine and alcohol, COPD, h/o alcohol withdrawal syndrome and DT's p/w fall and generalized weakness after missing dialysis. Esrd on HD tue, thurs, sat, hyperkalemia S/p calcium gluconate, insulin, glucose and lokelma as needed. Nephrology following continue. Alcohol abuse, h/o alcohol withdrawal syndrome, hypertensive and tachycardic , likely due to withdrawals, started on metoprolol, neurontin. 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 More than half of this time was spent in counseling and explaining disease process and management to patient and/or family. Full Code Health Care Proxy Contacts on File Name HCP Status Relationship HCP Last Review Date Estela Simeon Life Partner/Signif Oth Signed by: Gelacio Garcia MD [1] aspirin, 81 mg, Oral, Daily atorvaSTATin, 80 mg, Oral, QHS brexpiprazole, 3 mg, Oral, Daily clopidogreL, 75 mg, Oral, Daily epoetin naif-epbx, 10,000 Units, Intravenous, QTuThSa ferrous sulfate, 325 mg, Oral, Daily with breakfast multivitamin with minerals tablet, 1 tablet, Oral, Daily And folic acid, 1 mg, Oral, Daily gabapentin, 100 mg, Oral, QHS heparin (porcine), 5,000 Units, Subcutaneous, BID (0900,2100) lamoTRIgine, 25 mg, Oral, Daily melatonin, 6 mg, Oral, QPM metoprolol tartrate, 25 mg, Oral, BID OLANZapine, 10 mg, Oral, BID pantoprazole, 40 mg, Oral, BID sodium chloride, 3 mL, Intravenous, Q12H SUZETTE sertraline, 100 mg, Oral, BID sevelamer carbonate, 800 mg, Oral, TID with meals sodium zirconium cyclosilicate, 5 g, Oral, Daily with breakfast thiamine, 200 mg, Intravenous, BID Followed by [START ON 01/31/2025] thiamine, 100 mg, Oral, Daily [2] [3] [] LORazepam FOLLOWED BY LORazepam [] LORazepam FOLLOWED BY LORazepam midodrine Insert and Maintain Peripheral IV AND sodium chloride AND sodium chloride * Mary Garza RN - 01/29/2025 12:50 PM EST Case Management - Progress Note Patient: Sushant Christianson : 1960 Attending: Gelacio Garcia MD Admit Date: 01/27/2025 Inpatient Status Admit Date: 01/27/25 Primary Care Physician: Provider Not In System Case discussed at [facility], pt not ready for d/c. Pt Jen Jung called me [phone], she stated pt has been noncompliant with his HD runs and does miss them on occasion.Pt knows not to miss more than 1 in a row. Raymond give pt his meds in the am and them prefills his meds for the afternoon.He only lets them come 3x week.Fabiana is going to tell pt they want to come daily. I met with pt andhe is declining the need for STR.PT is rec STR. Team and Fabiana updated. Asked nsg to mobilize pt . CM to follow. Mary Garza RN CM 01/29/2025 * Annette Stanton MD - 01/29/2025 10:02 AM EST Nephrology Daily progress note Date of Service: 01/29/2025 Patient: Sushant Christianson : 1960 Admission Date: 01/27/2025 CSN: [id number] Room/Bed: 316/1 Reason For Consultation: Hyperkalemia Subjective and interval history: Patient seen and examined. Good appetite. Patient has no complaint. Synopsis: Sushant Christianson is a 65 y.o. male with past medical history significant for ESRD on hemodialysis, polysubstance abuse including cocaine and alcohol, COPD, history of alcohol withdrawal syndrome and DTs presented emergency with fall and generalized weakness. Patient reported his last session of hemodialysis was on last Saturday 01/20 and missed 2 sessions since then. He felt very depressedand did not want to leave the house and not going to dialysis center. Patient denies shortness of breath at rest or swelling of her extremities. ED course: Blood pressure 171/118 mmHg, pulse rate 85 bpm, respiration rate 18/min, temperature 97.8, saturation 98% on room air. Laboratory findings reveal elevated potassium level 6.0, BUN of 95 and creatinine of 15.4. EKG revealed normal sinus rhythm and left axis deviation, right bundle branch block. No EKG changes for hyperkalemia. Patient was given medical treatment for hyperkalemia including insulin, dextrose, calcium gluconate and Lokelma. Nephrology History: ESRD, documentation unavailable, but presumed hypertension/microvascular disease Started on in center hemodialysis 02/14, , Sunday schedule at [place] [facility] Followed by Dr. Genevieve Grimaldo as an outpatient Uses a tunneled catheter for dialysis access Still with fairly good urine output and missed several dialysis treatments. Current Medications: Scheduled Meds:Scheduled Medications[1] Continuous Infusions:Infusions Meds[2] PRN Meds:.PRN Medications[3] Medications Prior to Admission: Prescriptions Prior to Admission[4] Allergies: Allergies[5] Review of Systems: See history of present illness. No gross hematuria, no rash. General: Denies significant weight change, fatigue, fevers, chills, or sweats Skin: Denies any rashes or notable skin lesions CV: Denies chest pain, palpitations, claudication, edema Pulm: Denies SOB, cough, hemoptysis GI: Denies nausea, vomiting, abdominal pain, diarrhea Neuro: Denies headache, visual changes, paresthesias, dizziness, lightheadedess, gait instability, weakness, or falls : Denies back or flank pain, hematuria, dysuria Remainder of ROS negative. Physical Exam: Min/Max vitals over last 24 hours: BP Min: 130/83 Max: 179/101 Temp Min: 97.4 ??F (36.3 ??C) Max: 98.5 ??F (36.9 ??C) Pulse Min: 84 Max: 124 Resp Min: 18 Max: 22 SpO2 Min: 93 % Max: 99 % Admission VS: BP (!) 178/96 (BP Location: Left arm, Patient Position: Lying) Pulse (!) 95 Temp 98.2 ??F (36.8 ??C) (Oral) Resp 18 Ht 1.778 m (5' 10 ) Wt 79.8 kg (176 lb) SpO2 98% BMI 25.25 kg/m?? O2 Device: None (Room air) (01/29/25917) SpO2: 98 % (01/29/25917) General Appearance: Alert, cooperative, no distress Eyes: pale, not icteric HEENT: No JVD Lungs: Bilateral air entry +, no wheezing, no rales or rhonchi Heart: Regular rate and rhythm, No murmur, no gallop Abdomen: Soft, non-tenderness or rebound tenderness Extremities: No edema Pulses: intact Neurologic: Alert, Awake, Oriented x 4, no focal Access: Right IJ tunneled dialysis catheter Labs, Imaging & Other Studies: Labs: Results from last 7 days Lab Units 01/29/25 0407 01/28/25 0517 01/27/25 1240 WBC K/uL 6.28 6.65 8.59 HEMOGLOBIN g/dL 8.3* 7.8* 8.9* HEMATOCRIT % 26.3* 24.2* 27.6* PLATELETS K/uL 261 240 295 Results from last 7 days Lab Units 01/29/25 0407 01/28/25 0517 01/27/25 1538 01/27/25 1240 SODIUM mmol/L 138 139 136 137 POTASSIUM mmol/L 3.5 4.6 5.4* 6.0* CHLORIDE mmol/L 100 100 95* 96* CO2 mmol/L 27 27 24 23* BUN mg/dL 13 40* 97* 95* CREATININE mg/dL 3.20* 8.40* 15.20* 15.40* CALCIUM mg/dL 9.5 9.3 9.2 9.1 TOTAL PROTEIN g/dL -- 6.8 -- 7.5 BILIRUBIN TOTAL mg/dL -- 0.4 -- 0.4 ALK PHOS U/L -- 316* -- 382* ALT U/L -- 40 -- 54* AST U/L -- 31 -- 52* GLUCOSE mg/dL 100 103* 143* 113* Results from last 7 days Lab Units 01/27/25 1407 APTT s 33 INR 1.1 Lab Results Component Value Date ALT 40 01/28/2025 AST 31 01/28/2025 GGT 55 02/14/2010 ALKPHOS 316 (H) 01/28/2025 BILITOT 0.4 01/28/2025 ALB 3.7 01/28/2025 Lab Results Component Value Date CRP 182.0 (H) 08/06/2023 UA: Lab Results Component Value Date COLORU Yellow 01/28/2025 CLARITYU Clear 01/28/2025 LABPH 8.0 01/28/2025 PROTEINUR 100 mg/dL (A) 01/28/2025 GLUCOSEU 50 mg/dL (A) 01/28/2025 KETONESU 5 mg/dL (A) 01/28/2025 BLOODU Negative 01/28/2025 LEUKOCYTEUR Trace (A) 01/28/2025 NITRITE Negative 01/28/2025 WBCU 13 (H) 01/28/2025 RBCU 1 01/28/2025 HYALINECAST 2-3 (A) 12/14/2022 BACTERIA Few (A) 01/28/2025 Results for orders placed or performed during the hospital encounter of 01/27/25 Culture, Aerobic, Urine Collection Time: 01/28/25 1:46 AM Specimen: Urine, Mid-stream Collection Result Value Ref Range Culture <10,000 Gram Positive [facility]: XR Knee 4+ Vw Left (Trauma) Result Date: 01/27/2025 Soft tissue swelling. No acute fracture identified. CT Chest Abdomen Pelvis Trauma With Contrast Result Date: 01/27/2025 1. No convincing evidence of acute traumatic injury. 2. Subacute fractures of the right posterior 9-11th ribs with small effusion. 3. Left renal cyst which previously appeared simple, now hemorrhagic. Rupture is suspected (perinephric fluid and fluid about tail of the pancreas). No active bleeding.4. Somewhat collapsed and featureless transverse colon could reflect colitis. 5. Other findings as above. CT Head Anticoag Without Contrast Result Date: 01/27/[address]: No acute intracranial process. Generalized tissue loss, more than expected for the patient's age. Small-vessel ischemic disease, as before. CT of the cervical spine: Limited study secondary to patient motion. No acute displaced fracture. Reversal of the normal cervical lordosis, as before,likely related to degenerative disc disease. Multilevel degenerative disc disease. Facet joint hypertrophy and narrowing of the neural foramina at multiple levels. Partially visualized right-sided central venous catheter. CT Cervical Spine WO IV Contrast Result Date: 01/27/[address]: No acute intracranial process. Generalized tissue loss, more than expected for the patient's age. Small-vessel ischemic disease, as before. CT of the cervical spine: Limited study secondary to patient motion. No acute displaced fracture. Reversal of the normal cervical lordosis, as before,likely related to degenerative disc disease. Multilevel degenerative disc disease. Facet joint hypertrophy and narrowing of the neural foramina at multiple levels. Partially visualized right-sided central venous catheter. Assessment & Plan: Sushant Christianson is a 65 y.o. male who presents with generalized weakness and missed hemodialysis for 2 sessions noted to have hyperkalemia and uremia. ESRD on hemodialysis Sunday, , Sunday Hyperkalemia Uremia Benign hypertensive kidney disease Anemia due to ESRD Assessment: Stable hemodialysis. Patient blood pressure is elevated and no sign of volume overload. Recommendations: Will arrange hemodialysis on Sunday, , Sunday. Metabolic profile and CBC will be reviewed on a daily basis. HD: UF 2-3 liters as tolerated. Time 3.0 hours. Access right IJ tunneled dialysis catheter Dialysate 2 K, 2.5 Ca. Dialyzer F180 Blood flow (Qb) 400 ml/min, Dialysate flow (Qd) 800 ml/min Anticoagulation none ESRD related issues: 1. Anemia of chronic renal disease -Retacrit 43888 units IV on next HD 2. Electrolytes / acid-base - adequately controlled on intermittent hemodialysis 3. Blood pressure / volume -blood pressure elevated. Please resume home blood pressure medications. 4. Renal osteodystrophy / calcium / phosphorus - follow phosphorus every 2-3 days 5. Medications - dose for ESRD/hemodialysis Thank you very much for involving us in the care of your patient. I will continue to follow along as consult service and please let me know if I can be at all helpful during the remainder of hospitaladmission. Findings and suggestions were discussed with consulting team/physician. Signed by: Annette Stanton MD [1] aspirin, 81 mg, Oral, Daily atorvaSTATin, 80 mg, Oral, QHS brexpiprazole, 3 mg, Oral, Daily clopidogreL, 75 mg, Oral, Daily epoetin naif-epbx, 10,000 Units, Intravenous, QTuThSa ferrous sulfate, 325 mg, Oral, Daily with breakfast multivitamin with minerals tablet, 1 tablet, Oral, Daily And folic acid, 1 mg, Oral, Daily gabapentin, 100 mg, Oral, QHS heparin (porcine), 5,000 Units, Subcutaneous, BID (0900,2100) lamoTRIgine, 25 mg, Oral, Daily melatonin, 6 mg, Oral, QPM metoprolol tartrate, 25 mg, Oral, BID OLANZapine, 10 mg, Oral, BID pantoprazole, 40 mg, Oral, BID sodium chloride, 3 mL, Intravenous, Q12H SUZETTE sertraline, 100 mg, Oral, BID sevelamer carbonate, 800 mg, Oral, TID with meals sodium zirconium cyclosilicate, 5 g, Oral, Daily with breakfast thiamine, 200 mg, Intravenous, BID Followed by [START ON 01/31/2025] thiamine, 100 mg, Oral, Daily [2] [3] [] LORazepam FOLLOWED BY LORazepam [] LORazepam FOLLOWED BY LORazepam midodrine Insert and Maintain Peripheral IV AND sodium chloride AND sodium chloride [4] Medications Prior to Admission Medication Sig Dispense Refill Last Dose/Taking acetaminophen (TYLENOL) 500 MG tablet Take 1 tablet (500 mg total) by mouth every 6 hours as needed. aspirin 81 MG EC tablet Take 1 tablet (81 mg total) by mouth daily for 30 days. 30 tablet 0 atorvaSTATin (LIPITOR) 80 MG tablet Take 1 tablet (80 mg total) by mouth at bedtime for 30 days. 30tablet 0 clopidogreL (PLAVIX) 75 mg tablet Take 1 tablet (75 mg total) by mouth daily for 20 days. 20 tablet0 ferrous sulfate 324 mg (65 mg iron) TbEC Take 1 tablet (324 mg total) by mouth daily with breakfast. folic acid (FOLVITE) 1 MG tablet Take 1 tablet (1 mg total) by mouth daily. 14 tablet 0 hydrOXYzine HCL (ATARAX) 10 MG tablet Take 1 tablet (10 mg total) by mouth every 8 hours as needed for anxiety. 90 tablet 0 lamoTRIgine (LaMICtal) 25 MG tablet Take 1 tablet (25 mg total) by mouth in the morning. LOKELMA 5 gram PwPk powder packet Take 1 packet (5 g total) by mouth daily with breakfast. melatonin 3 mg Tab tablet Take 1 tablet (3 mg total) by mouth every evening. (Patient taking differently: Take 2 tablets (6 mg total) by mouth every evening.) 30 tablet 0 midodrine (PROAMATINE) 2.5 MG tablet Take 1 tablet (2.5 mg total) by mouth daily as needed (sbp <100mm Hg). 30 tablet 0 OLANZapine (ZyPREXA) 10 MG tablet Take 1 tablet (10 mg total) by mouth every morning & every evening. 20 tablet 0 pantoprazole (PROTONIX) [address] tablet Take 1 tablet (40 mg total) by mouth every morning & every evening for 30 days. 30 tablet 0 REXULTI 3 mg Tab Take 1 tablet (3 mg total) by mouth in the morning. sertraline (ZOLOFT) 100 MG tablet Take 1 tablet (100 mg total) by mouth every morning & every evening. 20 tablet 0 sevelamer carbonate (RENVELA) 800 mg tablet Take 1 tablet (800 mg total) by mouth 3 times a day with meals. 30 tablet 0 thiamine (Vitamin B1) 100 MG tablet Take 1 tablet (100 mg total) by mouth in the morning. [5] No Known Allergies * Gelacio Garcia MD - 01/28/2025 3:30 PM EST DAILY PROGRESS NOTE Date of Service: 01/28/2025 Patient: Sushant Christianson : 1960 CSN: [id number] SUBJECTIVE Reports intermittent palpitations and anxiety. Pertinent positives and negatives were discussed above. All other systems were reviewed and were found to be negative. OBJECTIVE Vital signs in last 24 hours BP Min: 124/82 Max: 179/101 Temp Min: 97.1 ??F (36.2 ??C) Max: 99.5 ??F (37.5 ??C) Pulse Min: 91 Max: 126 Resp Min: 14 Max: 22 SpO2 Min: 94 % Max: 99 % Weight Min: 76.4 kg (168 lb 6.9 oz) Max: 79.8 kg (176 lb) I/O (Last 24 hours) at 01/28/2025 1530 Last data filed at 01/28/2025 1344 Intake 1340 ml Output 4000 ml Net -2660 ml SpO2: 97 % O2 Device: None (Room air) PHYSICAL EXAM Gen: AAOx3 Lung: clear to auscultation Heart: regular rate rhythm Abdomen: soft, non-tender,non distended Ext: no edema Neuro: speech is normal LABORATORY Results from last 7 days Lab Units 01/28/25 0517 01/27/25 1240 WBC K/uL 6.65 8.59 HEMOGLOBIN g/dL 7.8* 8.9* HEMATOCRIT % 24.2* 27.6* PLATELETS K/uL 240 295 Results from last 7 days Lab Units 01/28/25 0517 01/27/25 1538 01/27/25 1240 SODIUM mmol/L 139 136 137 POTASSIUM mmol/L 4.6 5.4* 6.0* CHLORIDE mmol/L 100 95* 96* CO2 mmol/L 27 24 23* BUN mg/dL 40* 97* 95* CREATININE mg/dL 8.40* 15.20* 15.40* CALCIUM mg/dL 9.3 9.2 9.1 TOTAL PROTEIN g/dL 6.8 -- 7.5 BILIRUBIN TOTAL mg/dL 0.4 -- 0.4 ALK PHOS U/L 316* -- 382* ALT U/L 40 -- 54* AST U/L 31 -- 52* GLUCOSE mg/dL 103* 143* 113* Results from last 7 days Lab Units 01/27/25 1407 APTT s 33 INR 1.1 UA Lab Results Component Value Date COLORU Yellow 01/28/2025 CLARITYU Clear 01/28/2025 LABPH 8.0 01/28/2025 PROTEINUR 100 mg/dL (A) 01/28/2025 GLUCOSEU 50 mg/dL (A) 01/28/2025 KETONESU 5 mg/dL (A) 01/28/2025 BLOODU Negative 01/28/2025 LEUKOCYTEUR Trace (A) 01/28/2025 NITRITE Negative 01/28/2025 WBCU 13 (H) 01/28/2025 RBCU 1 01/28/2025 HYALINECAST 2-3 (A) 12/14/2022 BACTERIA Few (A) 01/28/2025 Microbiology Results for orders placed or performed during the hospital encounter of 02/28/24 Culture, Blood Collection Time: 02/29/24 9:26 AM Specimen: Peripheral; Blood Result Value Ref Range Culture No growth after 5 days Culture, Blood Collection Time: 02/29/24 9:26 AM Specimen: Peripheral; Blood Result Value Ref Range Culture No growth after 5 days RADIOLOGY Results for orders placed or performed during the hospital encounter of 01/27/25 CT Head Anticoag Without Contrast Narrative EXAM DESCRIPTION: CT HEAD ANTICOAG WO CONTRAST; CT CERVICAL SPINE WO CONTRAST CLINICAL HISTORY: 65-year-old man brought in by ambulance from home with failure to thrive. Depression. Frequent falls. This patient takes blood thinners. Patient has not been to dialysis. ETOH. Sleep issues. Bruising on legs and left side of the chest. Last dialysis on Sunday of last week. COMPARISON: Head CT from 12/23/2024. CT of the cervical spine from 12/02/2024. TECHNIQUE: Contiguous 5 mm axial images were obtained through the head and cervical spine. Subsequently sagittal and coronal reconstructions were performed. FINDINGS: Head CT: The ventricles, sulci and cisterns remain prominent, consistent with generalized tissue loss, more than expected for the patient's age. There is no mass, mass effect or hemorrhage. No evidence of an acute territorial infarct. No extra-axial fluid collection. There is persistent patchy low attenuation in the periventricular and subcortical white matter which is nonspecific but probably reflects the sequela of small-vessel ischemic disease in a patient of this age. The visualized paranasal sinuses and mastoid air cells are well-aerated. No air-fluid levels to suggest acute sinusitis. The visualized globes appear intact. There is no evidence of an acute displaced skull fracture. CT of the cervical spine: These images are slightly degraded by patient motion. The bones are well mineralized. The normal vertebral body heights are maintained. No prevertebral soft tissue swelling. No acute displaced fracture. There is reversal of the normal cervical lordosis, as before. There is multilevel degenerative disc disease with endplate osteophytes and loss of the normal intervertebral disc spaces diffusely throughout the cervical spine but most pronounced at C2 through C6. There is bilateral facet joint hypertrophy with narrowing of the neural foramina at multiple levels. The dens appears intact. The lateral masses of C1 are normally located. There is a partially visualized central venous catheter in the right upper chest. There is atherosclerosis at the left carotid bifurcation. The thyroid gland is not well visualized. The lung apices are well-aerated. There are multiple small cervical lymph nodes in the anterior and posterior cervical triangles. Impression Head CT: No acute intracranial process. Generalized tissue loss, more than expected for the patient's age. Small-vessel ischemic disease, as before. CT of the cervical spine: Limited study secondary to patient motion. No acute displaced fracture. Reversal of the normal cervical lordosis, as before, likely related to degenerative disc disease. Multilevel degenerative disc disease. Facet joint hypertrophy and narrowing of the neural foramina at multiple levels. Partially visualized right-sided central venous catheter. CT Cervical Spine WO IV Contrast Narrative EXAM DESCRIPTION: CT HEAD ANTICOAG WO CONTRAST; CT CERVICAL SPINE WO CONTRAST CLINICAL HISTORY: 65-year-old man brought in by ambulance from home with failure to thrive. Depression. Frequent falls. This patient takes blood thinners. Patient has not been to dialysis. ETOH. Sleep issues. Bruising on legs and left side of the chest. Last dialysis on Sunday of last week. COMPARISON: Head CT from 12/23/2024. CT of the cervical spine from 12/02/2024. TECHNIQUE: Contiguous 5 mm axial images were obtained through the head and cervical spine. Subsequently sagittal and coronal reconstructions were performed. FINDINGS: Head CT: The ventricles, sulci and cisterns remain prominent, consistent with generalized tissue loss, more than expected for the patient's age. There is no mass, mass effect or hemorrhage. No evidence of an acute territorial infarct. No extra-axial fluid collection. There is persistent patchy low attenuation in the periventricular and subcortical white matter which is nonspecific but probably reflects the sequela of small-vessel ischemic disease in a patient of this age. The visualized paranasal sinuses and mastoid air cells are well-aerated. No air-fluid levels to suggest acute sinusitis. The visualized globes appear intact. There is no evidence of an acute displaced skull fracture. CT of the cervical spine: These images are slightly degraded by patient motion. The bones are well mineralized. The normal vertebral body heights are maintained. No prevertebral soft tissue swelling. No acute displaced fracture. There is reversal of the normal cervical lordosis, as before. There is multilevel degenerative disc disease with endplate osteophytes and loss of the normal intervertebral disc spaces diffusely throughout the cervical spine but most pronounced at C2 through C6. There is bilateral facet joint hypertrophy with narrowing of the neural foramina at multiple levels. The dens appears intact. The lateral masses of C1 are normally located. There is a partially visualized central venous catheter in the right upper chest. There is atherosclerosis at the left carotid bifurcation. The thyroid gland is not well visualized. The lung apices are well-aerated. There are multiple small cervical lymph nodes in the anterior and posterior cervical triangles. Impression Head CT: No acute intracranial process. Generalized tissue loss, more than expected for the patient's age. Small-vessel ischemic disease, as before. CT of the cervical spine: Limited study secondary to patient motion. No acute displaced fracture. Reversal of the normal cervical lordosis, as before, likely related to degenerative disc disease. Multilevel degenerative disc disease. Facet joint hypertrophy and narrowing of the neural foramina at multiple levels. Partially visualized right-sided central venous catheter. CT Chest Abdomen Pelvis Trauma With Contrast Narrative EXAM DESCRIPTION: CT CHEST ABDOMEN PELVIS TRAUMA W CONTRAST CLINICAL HISTORY: Falls. Failure to thrive. COMPARISON: CXR dated 12/26/2024. CT of the abdomen pelvis dated 12/20/2022. CONTRAST: 100ml of Omnipaque 350 were administered. TECHNIQUE: The standard 5 mm sequential axial images were obtained through the chest, abdomen and pelvis. Coronal and sagittal reconstructions were also obtained. The pelvis was imaged to completely assess for acute pathology. FINDINGS: Lung tian: The lungs are well aerated and clear. No significant lung nodules or masses are identified. No interstitial abnormalities are identified. There is no evidence of bronchiectasis. There is a small right pleural effusion. No pneumothorax. Heart and Mediastinum: The heart and great vessels are normal for age. No mediastinal or hilar lymphadenopathy is identified. Airways: The trachea and central bronchi are widely patent and clear without filling defects identified. Neck structures: There is a thyroid goiter. Hepatobiliary: The liver is normal. There is cholelithiasis. The intrahepatic and extrahepatic bile ducts are normal. There is calcification of the pancreas as could be seen with chronic pancreatitis.There is stranding and fluid about the tail of the pancreas, which appears secondary to ruptured left renal cyst. The spleen is normal. Genitourinary: Right adrenal gland is unremarkable. There is a 1.4 cm left adrenal nodule, unchanged. The kidneys are atrophic bilaterally. There is a 3.3 cm left renal cyst which appears acutely hemorrhagic with rupture. No active bleeding seen. No renal masses or stones. No hydronephrosis. The pelvic organs and bladder are unremarkable. Bowel and peritoneal cavity: No evidence of appendicitis. The transverse colon appears somewhat collapsed and featureless. There is diverticulosis. Elsewhere, no bowel related obstruction or perforation is detected. No ascites or peritoneal fluid collections are identified. There is no evidence of free intraperitoneal air. No abdominal wall hernia is identified. Retroperitoneum: There is no evidence of retroperitoneal or pelvic lymphadenopathy. The retroperitoneal vascular structures appear normal. Bones and soft tissues: There are subacute fractures of the right posterior 9-11th ribs. There is hardware in the right hip. There is a wedge deformity of T8. This appears to be chronic. There is gynecomastia. Impression 1. No convincing evidence of acute traumatic injury. 2. Subacute fractures of the right posterior 9-11th ribs with small effusion. 3. Left renal cyst which previously appeared simple, now hemorrhagic. Rupture is suspected (perinephric fluid and fluid about tail of the pancreas). No active bleeding. 4. Somewhat collapsed and featureless transverse colon could reflect colitis. 5. Other findings as above. XR Knee 4+ Vw Left (Trauma) Narrative EXAM DESCRIPTION: XR KNEE 4+ VW LEFT CLINICAL HISTORY: Left knee pain. Trauma. COMPARISON: No prior studies available for comparison. TECHNIQUE: 4 views submitted FINDINGS: The bones are intact and normally aligned. There is soft tissue swelling. There is no significant joint effusion. Bones are demineralized. The joint spaces appear normal. Impression Soft tissue swelling. No acute fracture identified. MEDICATIONS Scheduled Meds:Scheduled Medications[1] Continuous Infusions:Infusions Meds[2] PRN Meds:.PRN Medications[3] ASSESSMENT/PLAN 65 y.o. male PMH significant for ESRD on HD, polysubstance abuse with cocaine and alcohol, COPD, h/o alcohol withdrawal syndrome and DT's p/w fall and generalized weakness after missing dialysis. Esrd on HD tue, thurs, sat, hyperkalemia S/p calcium gluconate, insulin, glucose and lokelut Nephrology following continue. Alcohol abuse, h/o alcohol withdrawal syndrome, ypertensive and tachycardic , likely due to withdrawals, started on metoprolol, neurontin. 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 More than half of this time was spent in counseling and explaining disease process and management to patient and/or family. Full Code Health Care Proxy Contacts on File Name HCP Status Relationship HCP Last Review Date Estela Simeon Life Partner/Signif Oth Signed by: Gelacio Garcia MD [1] aspirin, 81 mg, Oral, Daily atorvaSTATin, 80 mg, Oral, QHS brexpiprazole, 3 mg, Oral, Daily clopidogreL, 75 mg, Oral, Daily epoetin naif-epbx, 10,000 Units, Intravenous, QTuThSa ferrous sulfate, 325 mg, Oral, Daily with breakfast multivitamin with minerals tablet, 1 tablet, Oral, Daily And folic acid, 1 mg, Oral, Daily gabapentin, 100 mg, Oral, QHS heparin (porcine), 5,000 Units, Subcutaneous, BID (0900,2100) lamoTRIgine, 25 mg, Oral, Daily melatonin, 6 mg, Oral, QPM metoprolol tartrate, 25 mg, Oral, BID OLANZapine, 10 mg, Oral, BID pantoprazole, 40 mg, Oral, BID sodium chloride, 3 mL, Intravenous, Q12H SUZETTE sertraline, 100 mg, Oral, BID sevelamer carbonate, 800 mg, Oral, TID with meals sodium zirconium cyclosilicate, 5 g, Oral, Daily with breakfast thiamine, 200 mg, Intravenous, BID Followed by [START ON 01/31/2025] thiamine, 100 mg, Oral, Daily [2] [3] LORazepam FOLLOWED BY LORazepam LORazepam FOLLOWED BY LORazepam midodrine Insert and Maintain Peripheral IV AND sodium chloride AND sodium chloride * Jo Martinez RN - 01/28/2025 2:38 PM EST Case Management - Progress Note Patient: Sushant Christianson : 1960 Attending: Gelacio Garcia MD Admit Date: 01/27/2025 Inpatient Status Admit Date: 01/27/25 Primary Care Physician: Provider Not In System Patient is well known to . He was recently admitted on 12/26/24 for SIRS and discharged on 12/29/24. Patient is alert and oriented to person, place, time, and situation. He lives with his significant other and receives dialysis 3x per week at [facility] in [place]. [facility] and has been to [facility] in [place] for rehab. PT eval pending. SW and CM following hospital course. Jo Martinez RN 01/28/2025 * Annette Stanton MD - 01/28/2025 12:45 PM EST Nephrology Daily progress note Date of Service: 01/28/2025 Patient: Sushant Christianson : 1960 Admission Date: 01/27/2025 CSN: [id number] Room/Bed: 316/1 Reason For Consultation: Hyperkalemia Subjective and interval history: Patient seen and examined. Hyperkalemia resolved. Hemodialysis yesterday with ultrafiltration 3.0 L. Synopsis: Sushant Christianson is a 65 y.o. male with past medical history significant for ESRD on hemodialysis, polysubstance abuse including cocaine and alcohol, COPD, history of alcohol withdrawal syndrome and DTs presented emergency with fall and generalized weakness. Patient reported his last session of hemodialysis was on last Saturday 01/20 and missed 2 sessions since then. He felt very depressedand did not want to leave the house and not going to dialysis center. Patient denies shortness of breath at rest or swelling of her extremities. ED course: Blood pressure 171/118 mmHg, pulse rate 85 bpm, respiration rate 18/min, temperature 97.8, saturation 98% on room air. Laboratory findings reveal elevated potassium level 6.0, BUN of 95 and creatinine of 15.4. EKG revealed normal sinus rhythm and left axis deviation, right bundle branch block. No EKG changes for hyperkalemia. Patient was given medical treatment for hyperkalemia including insulin, dextrose, calcium gluconate and Lokelma. Nephrology History: ESRD, documentation unavailable, but presumed hypertension/microvascular disease Started on in center hemodialysis 02/14, , Sunday schedule at [place] dialysis Followed by Dr. Genevieve Grimaldo as an outpatient Uses a tunneled catheter for dialysis access Still with fairly good urine output and missed several dialysis treatments. Current Medications: Scheduled Meds:Scheduled Medications[1] Continuous Infusions:Infusions Meds[2] PRN Meds:.PRN Medications[3] Medications Prior to Admission: Prescriptions Prior to Admission[4] Allergies: Allergies[5] Review of Systems: See history of present illness. No gross hematuria, no rash. General: Denies significant weight change, fatigue, fevers, chills, or sweats Skin: Denies any rashes or notable skin lesions CV: Denies chest pain, palpitations, claudication, edema Pulm: Denies SOB, cough, hemoptysis GI: Denies nausea, vomiting, abdominal pain, diarrhea Neuro: Denies headache, visual changes, paresthesias, dizziness, lightheadedess, gait instability, weakness, or falls : Denies back or flank pain, hematuria, dysuria Remainder of ROS negative. Physical Exam: Min/Max vitals over last 24 hours: BP Min: 124/82 Max: 177/67 Temp Min: 97.1 ??F (36.2 ??C) Max: 99.5 ??F (37.5 ??C) Pulse Min: 91 Max: 126 Resp Min: 13 Max: 20 SpO2 Min: 94 % Max: 99 % Weight Min: 76.4 kg (168 lb 6.9 oz) Max: 79.8 kg (176 lb) Admission VS: BP (!) 149/94 (BP Location: Left arm, Patient Position: Lying) Pulse (!) 117 Temp99.5 ??F (37.5 ??C) (Oral) Resp 18 Ht 1.778 m (5' 10 ) Wt 79.8 kg (176 lb) SpO2 98% BMI 25.25 kg/m?? O2 Device: None (Room air) (01/28/25 075) SpO2: 98 % (01/28/25 075) General Appearance: Alert, cooperative, no distress Eyes: pale, not icteric HEENT: No JVD Lungs: Bilateral air entry +, no wheezing, no rales or rhonchi Heart: Regular rate and rhythm, No murmur, no gallop Abdomen: Soft, non-tenderness or rebound tenderness Extremities: No edema Pulses: intact Neurologic: Alert, Awake, Oriented x 4, no focal Access: Right IJ tunneled dialysis catheter Labs, Imaging & Other Studies: Labs: Results from last 7 days Lab Units 01/28/25 0517 01/27/25 1240 WBC K/uL 6.65 8.59 HEMOGLOBIN g/dL 7.8* 8.9* HEMATOCRIT % 24.2* 27.6* PLATELETS K/uL 240 295 Results from last 7 days Lab Units 01/28/25 0517 01/27/25 1538 01/27/25 1240 SODIUM mmol/L 139 136 137 POTASSIUM mmol/L 4.6 5.4* 6.0* CHLORIDE mmol/L 100 95* 96* CO2 mmol/L 27 24 23* BUN mg/dL 40* 97* 95* CREATININE mg/dL 8.40* 15.20* 15.40* CALCIUM mg/dL 9.3 9.2 9.1 TOTAL PROTEIN g/dL 6.8 -- 7.5 BILIRUBIN TOTAL mg/dL 0.4 -- 0.4 ALK PHOS U/L 316* -- 382* ALT U/L 40 -- 54* AST U/L 31 -- 52* GLUCOSE mg/dL 103* 143* 113* Results from last 7 days Lab Units 01/27/25 1407 APTT s 33 INR 1.1 Lab Results Component Value Date ALT 40 01/28/2025 AST 31 01/28/2025 GGT 55 02/14/2010 ALKPHOS 316 (H) 01/28/2025 BILITOT 0.4 01/28/2025 ALB 3.7 01/28/2025 Lab Results Component Value Date CRP 182.0 (H) 08/06/2023 UA: Lab Results Component Value Date COLORU Yellow 01/28/2025 CLARITYU Clear 01/28/2025 LABPH 8.0 01/28/2025 PROTEINUR 100 mg/dL (A) 01/28/2025 GLUCOSEU 50 mg/dL (A) 01/28/2025 KETONESU 5 mg/dL (A) 01/28/2025 BLOODU Negative 01/28/2025 LEUKOCYTEUR Trace (A) 01/28/2025 NITRITE Negative 01/28/2025 WBCU 13 (H) 01/28/2025 RBCU 1 01/28/2025 HYALINECAST 2-3 (A) 12/14/2022 BACTERIA Few (A) 01/28/2025 Results for orders placed or performed during the hospital encounter of 02/28/24 Culture, Blood Collection Time: 02/29/24 9:26 AM Specimen: Peripheral; Blood Result Value Ref Range Culture No growth after 5 days Culture, Blood Collection Time: 02/29/24 9:26 AM Specimen: Peripheral; Blood Result Value Ref Range Culture No growth after 5 days Imaging: XR Knee 4+ Vw Left (Trauma) Result Date: 01/27/2025 Soft tissue swelling. No acute fracture identified. CT Chest Abdomen Pelvis Trauma With Contrast Result Date: 01/27/2025 1. No convincing evidence of acute traumatic injury. 2. Subacute fractures of the right posterior 9-11th ribs with small effusion. 3. Left renal cyst which previously appeared simple, now hemorrhagic. Rupture is suspected (perinephric fluid and fluid about tail of the pancreas). No active bleeding.4. Somewhat collapsed and featureless transverse colon could reflect colitis. 5. Other findings as above. CT Head Anticoag Without Contrast Result Date: 01/27/[address]: No acute intracranial process. Generalized tissue loss, more than expected for the patient's age. Small-vessel ischemic disease, as before. CT of the cervical spine: Limited study secondary to patient motion. No acute displaced fracture. Reversal of the normal cervical lordosis, as before,likely related to degenerative disc disease. Multilevel degenerative disc disease. Facet joint hypertrophy and narrowing of the neural foramina at multiple levels. Partially visualized right-sided central venous catheter. CT Cervical Spine WO IV Contrast Result Date: 01/27/[address]: No acute intracranial process. Generalized tissue loss, more than expected for the patient's age. Small-vessel ischemic disease, as before. CT of the cervical spine: Limited study secondary to patient motion. No acute displaced fracture. Reversal of the normal cervical lordosis, as before,likely related to degenerative disc disease. Multilevel degenerative disc disease. Facet joint hypertrophy and narrowing of the neural foramina at multiple levels. Partially visualized right-sided central venous catheter. Assessment & Plan: Sushant Christianson is a 65 y.o. male who presents with generalized weakness and missed hemodialysis for 2 sessions noted to have hyperkalemia and uremia. ESRD on hemodialysis Sunday, , Sunday Hyperkalemia Uremia Benign hypertensive kidney disease Anemia due to ESRD Assessment: Stable hemodialysis. Patient blood pressure is elevated and no sign of volume overload. Recommendations: Will arrange hemodialysis on Sunday, , Sunday. Metabolic profile and CBC will be reviewed on a daily basis. HD: UF 2-3 liters as tolerated. Time 3.0 hours. Access right IJ tunneled dialysis catheter Dialysate 2 K, 2.5 Ca. Dialyzer F180 Blood flow (Qb) 400 ml/min, Dialysate flow (Qd) 800 ml/min Anticoagulation none ESRD related issues: 1. Anemia of chronic renal disease -Retacrit 08428 units IV on next HD 2. Electrolytes / acid-base - adequately controlled on intermittent hemodialysis 3. Blood pressure / volume -blood pressure elevated. Please resume home blood pressure medications. 4. Renal osteodystrophy / calcium / phosphorus - follow phosphorus every 2-3 days 5. Medications - dose for ESRD/hemodialysis Thank you very much for involving us in the care of your patient. I will continue to follow along as consult service and please let me know if I can be at all helpful during the remainder of hospitaladmission. Findings and suggestions were discussed with consulting team/physician. Signed by: Annette Stanton MD [1] aspirin, 81 mg, Oral, Daily atorvaSTATin, 80 mg, Oral, QHS brexpiprazole, 3 mg, Oral, Daily clopidogreL, 75 mg, Oral, Daily epoetin naif-epbx, 10,000 Units, Intravenous, QTuThSa ferrous sulfate, 325 mg, Oral, Daily with breakfast multivitamin with minerals tablet, 1 tablet, Oral, Daily And folic acid, 1 mg, Oral, Daily heparin (porcine), 5,000 Units, Subcutaneous, BID (0900,2100) lamoTRIgine, 25 mg, Oral, Daily melatonin, 6 mg, Oral, QPM OLANZapine, 10 mg, Oral, BID pantoprazole, 40 mg, Oral, BID sodium chloride, 3 mL, Intravenous, Q12H SUZETTE sertraline, 100 mg, Oral, BID sevelamer carbonate, 800 mg, Oral, TID with meals sodium zirconium cyclosilicate, 5 g, Oral, Daily with breakfast thiamine, 200 mg, Intravenous, BID Followed by [START ON 01/31/2025] thiamine, 100 mg, Oral, Daily [2] [3] LORazepam FOLLOWED BY LORazepam LORazepam FOLLOWED BY LORazepam midodrine Insert and Maintain Peripheral IV AND sodium chloride AND sodium chloride [4] Medications Prior to Admission Medication Sig Dispense Refill Last Dose/Taking acetaminophen (TYLENOL) 500 MG tablet Take 1 tablet (500 mg total) by mouth every 6 hours as needed. aspirin 81 MG EC tablet Take 1 tablet (81 mg total) by mouth daily for 30 days. 30 tablet 0 atorvaSTATin (LIPITOR) 80 MG tablet Take 1 tablet (80 mg total) by mouth at bedtime for 30 days. 30tablet 0 clopidogreL (PLAVIX) 75 mg tablet Take 1 tablet (75 mg total) by mouth daily for 20 days. 20 tablet0 ferrous sulfate 324 mg (65 mg iron) TbEC Take 1 tablet (324 mg total) by mouth daily with breakfast. folic acid (FOLVITE) 1 MG tablet Take 1 tablet (1 mg total) by mouth daily. 14 tablet 0 hydrOXYzine HCL (ATARAX) 10 MG tablet Take 1 tablet (10 mg total) by mouth every 8 hours as needed for anxiety. 90 tablet 0 lamoTRIgine (LaMICtal) 25 MG tablet Take 1 tablet (25 mg total) by mouth in the morning. LOKELMA 5 gram PwPk powder packet Take 1 packet (5 g total) by mouth daily with breakfast. melatonin 3 mg Tab tablet Take 1 tablet (3 mg total) by mouth every evening. (Patient taking differently: Take 2 tablets (6 mg total) by mouth every evening.) 30 tablet 0 midodrine (PROAMATINE) 2.5 MG tablet Take 1 tablet (2.5 mg total) by mouth daily as needed (sbp <100mm Hg). 30 tablet 0 OLANZapine (ZyPREXA) 10 MG tablet Take 1 tablet (10 mg total) by mouth every morning & every evening. 20 tablet 0 pantoprazole (PROTONIX) [address] tablet Take 1 tablet (40 mg total) by mouth every morning & every evening for 30 days. 30 tablet 0 REXULTI 3 mg Tab Take 1 tablet (3 mg total) by mouth in the morning. sertraline (ZOLOFT) 100 MG tablet Take 1 tablet (100 mg total) by mouth every morning & every evening. 20 tablet 0 sevelamer carbonate (RENVELA) 800 mg tablet Take 1 tablet (800 mg total) by mouth 3 times a day with meals. 30 tablet 0 thiamine (Vitamin B1) 100 MG tablet Take 1 tablet (100 mg total) by mouth in the morning. [5] No Known Allergies documented in this encounter H&P Notes * Emma Siddiqi MD - 01/27/2025 3:16 PM EST History and Physical Examination Date of Service: 01/27/2025 Patient: Sushant Christianson : 1960 CSN: [id number] Attending: Emma Siddiqi MD Admit Date: 01/27/2025 Primary Care Physician: Provider Not In System Chief Complaint:generalized weakness History of Present Illness: This is a 65 y.o. male PMH significant for ESRD on HD, polysubstance abuse with cocaine and alcohol, COPD, h/o alcohol withdrawal syndrome and DT's p/w fall and generalized weakness. Patient has missed 2 sessions of dialysis because he says he was severely depressed and did not want to leave the house. Denies suicidal or homicidal ideations. No chest pain or sob. He has been drinking alcohol daily and smoking cigarettes. Says he had multiple falls over the last week but denies any head trauma or pain anywhere. No other complaints. History: Past Medical History: Diagnosis Date Alcohol dependence ([facility]) Alcoholic fatty liver 11/22/2020 Anemia of chronic disease 02/22/2022 Anxiety and depression 11/22/2020 Bacteremia 10/17/2022 Kruse's esophagus without dysplasia 12/24/2019 BPH with urinary obstruction 10/10/2018 Chronic obstructive pulmonary disease, unspecified ([facility]) 11/22/2020 CKD (chronic kidney disease) ESRD (end stage renal disease) ([facility]) 11/02/2022 Gastro-esophageal reflux disease without esophagitis 11/22/2020 HCAP (healthcare-associated pneumonia) 06/18/2022 Hyperlipidemia Hypertension 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 Polysubstance abuse ([facility]) 01/28/2021 Suicidal ideation 02/08/2023 Syncope 12/20/2022 Past Surgical History: Procedure Laterality Date INTERVENTIONAL RADIOLOGY PROCEDURE N/A 08/06/2023 Surgeon: PRESTON Boateng; Location: [facility]; Service: Vascular and Interventional Radiology; Laterality: N/A; arm surgery Left Family History Problem Relation Name Age of Onset Diabetes Mother d. 88 Thyroid disease Mother Depression Father Social History Tobacco Use Smoking status: Every Day Current packs/day: 1.00 Types: Cigarettes Substance Use Topics Alcohol use: Yes Alcohol/week: 28.0 - 63.0 standard drinks of alcohol Types: 28 - 63 Standard drinks or equivalent per week Comment: 1 1/2 pints daily Drug use: Yes Types: Cocaine, Crack cocaine Comment: occasional Allergies: Patient has no known allergies. Medications: Prior to Admission medications Medication Sig Start Date End Date Taking? Authorizing Provider acetaminophen (TYLENOL) 500 MG tablet Take 1 tablet (500 mg total) by mouth every 6 hours as needed. Historical Provider, aspirin 81 MG EC tablet Take 1 tablet (81 mg total) by mouth daily for 30 days. 04/21/24 12/26/24 Nydia England MD atorvaSTATin (LIPITOR) 80 MG tablet Take 1 tablet (80 mg total) by mouth at bedtime for 30 days. 04/21/24 12/26/24 Nydia England MD calcium gluc in NaCl, iso-osm (calcium gluconate in NaCl, iso-osm) 1 gram/50 mL IVPB Infuse 50 mL (1 g total) into a venous catheter once for 1 dose. 01/27/25 01/27/25 Leticia Gilmore MD clopidogreL (PLAVIX) 75 mg tablet Take 1 tablet (75 mg total) by mouth daily for 20 days. 04/22/24 12/26/24 Nydia England MD ferrous sulfate 324 mg (65 mg iron) TbEC Take 1 tablet (324 mg total) by mouth daily with breakfast. Historical ProviderMD folic acid (FOLVITE) 1 MG tablet Take 1 tablet (1 mg total) by mouth daily. 02/28/23 Jacque Berg MD hydrOXYzine HCL (ATARAX) 10 MG tablet Take 1 tablet (10 mg total) by mouth every 8 hours as needed for anxiety. 03/12/24 Jonathan Lopez MD lamoTRIgine (LaMICtal) 25 MG tablet Take 1 tablet (25 mg total) by mouth in the morning. HistoricalProMD rajinder LOKELMA 5 gram PwPk powder packet Take 1 packet (5 g total) by mouth daily with breakfast. 07/07/24 Historical Provider, melatonin 3 mg Tab tablet Take 1 tablet (3 mg total) by mouth every evening. Patient taking differently: Take 2 tablets (6 mg total) by mouth every evening. 03/12/24 Jonathan Lopez MD midodrine (PROAMATINE) 2.5 MG tablet Take 1 tablet (2.5 mg total) by mouth daily as needed (sbp <100mm Hg). 12/29/24 Gelacio Garcia MD OLANZapine (ZyPREXA) 10 MG tablet Take 1 tablet (10 mg total) by mouth every morning & every evening. 04/21/24 Nydia England MD pantoprazole (PROTONIX) [address] tablet Take 1 tablet (40 mg total) by mouth every morning & every evening for 30 days. 04/21/24 12/26/24 Nydia England MD REXULTI 3 mg Tab Take 1 tablet (3 mg total) by mouth in the morning. 12/06/23 Historical Provider, sertraline (ZOLOFT) 100 MG tablet Take 1 tablet (100 mg total) by mouth every morning & every evening. 04/21/24 Nydia England MD sevelamer carbonate (RENVELA) 800 mg tablet Take 1 tablet (800 mg total) by mouth 3 times a day with meals. 04/21/24 Nydia England MD thiamine (Vitamin B1) 100 MG tablet Take 1 tablet (100 mg total) by mouth in the morning. 07/16/23 Historical Provider, Review of Systems: As per history of present illness, all other systems reviewed and found to be negative. Currently: No neuro complaints No chest pain No Shortness of breath No diarrhea/vomiting/abdominal pain No dysuria complaints Physical Exam: Vital signs in last 24 hours: BP Min: 171/118 Max: 171/118 Temp Min: 97.1 ??F (36.2 ??C) Max: 97.8 ??F (36.6 ??C) Pulse Min: 85 Max: 99 Resp Min: 13 Max: 18 SpO2 Min: 95 % Max: 98 % Weight Min: 79.4 kg (175 lb) Max: 79.4 kg (175 lb) No intake or output data in the 24 hours ending 01/27/25 1516 SpO2: 95 % O2 Device: None (Room air) Gen: AAOx3, No acute distress, comfortable in bed Neuro: no focal deficits, no sensation deficit, Cranial nerves grossly intact HEENT: normocephalic, atraumatic, EOMI, PERRL Heart- Regular Rate Rhythm, no murmurs, no JVD, no JVP Lung: Clear to auscultation, no wheeze, no ronchi Abdomen: BS+, no pain to palpation, no organomegaly, soft, depressible Ext- no edema, no clubbing, no deformity Vascular: pulses +2 bilaterally all extremities Skin: no cyanosis, no breakdown, no hematomas Radiology: Results for orders placed or performed during the hospital encounter of 01/27/25 CT Head Anticoag Without Contrast Narrative EXAM DESCRIPTION: CT HEAD ANTICOAG WO CONTRAST; CT CERVICAL SPINE WO CONTRAST CLINICAL HISTORY: 65-year-old man brought in by ambulance from home with failure to thrive. Depression. Frequent falls. This patient takes blood thinners. Patient has not been to dialysis. ETOH. Sleep issues. Bruising on legs and left side of the chest. Last dialysis on Sunday of last week. COMPARISON: Head CT from 12/23/2024. CT of the cervical spine from 12/02/2024. TECHNIQUE: Contiguous 5 mm axial images were obtained through the head and cervical spine. Subsequently sagittal and coronal reconstructions were performed. FINDINGS: Head CT: The ventricles, sulci and cisterns remain prominent, consistent with generalized tissue loss, more than expected for the patient's age. There is no mass, mass effect or hemorrhage. No evidence of an acute territorial infarct. No extra-axial fluid collection. There is persistent patchy low attenuation in the periventricular and subcortical white matter which is nonspecific but probably reflects the sequela of small-vessel ischemic disease in a patient of this age. The visualized paranasal sinuses and mastoid air cells are well-aerated. No air-fluid levels to suggest acute sinusitis. The visualized globes appear intact. There is no evidence of an acute displaced skull fracture. CT of the cervical spine: These images are slightly degraded by patient motion. The bones are well mineralized. The normal vertebral body heights are maintained. No prevertebral soft tissue swelling. No acute displaced fracture. There is reversal of the normal cervical lordosis, as before. There is multilevel degenerative disc disease with endplate osteophytes and loss of the normal intervertebral disc spaces diffusely throughout the cervical spine but most pronounced at C2 through C6. There is bilateral facet joint hypertrophy with narrowing of the neural foramina at multiple levels. The dens appears intact. The lateral masses of C1 are normally located. There is a partially visualized central venous catheter in the right upper chest. There is atherosclerosis at the left carotid bifurcation. The thyroid gland is not well visualized. The lung apices are well-aerated. There are multiple small cervical lymph nodes in the anterior and posterior cervical triangles. Impression Head CT: No acute intracranial process. Generalized tissue loss, more than expected for the patient's age. Small-vessel ischemic disease, as before. CT of the cervical spine: Limited study secondary to patient motion. No acute displaced fracture. Reversal of the normal cervical lordosis, as before, likely related to degenerative disc disease. Multilevel degenerative disc disease. Facet joint hypertrophy and narrowing of the neural foramina at multiple levels. Partially visualized right-sided central venous catheter. CT Cervical Spine WO IV Contrast Narrative EXAM DESCRIPTION: CT HEAD ANTICOAG WO CONTRAST; CT CERVICAL SPINE WO CONTRAST CLINICAL HISTORY: 65-year-old man brought in by ambulance from home with failure to thrive. Depression. Frequent falls. This patient takes blood thinners. Patient has not been to dialysis. ETOH. Sleep issues. Bruising on legs and left side of the chest. Last dialysis on Sunday of last week. COMPARISON: Head CT from 12/23/2024. CT of the cervical spine from 12/02/2024. TECHNIQUE: Contiguous 5 mm axial images were obtained through the head and cervical spine. Subsequently sagittal and coronal reconstructions were performed. FINDINGS: Head CT: The ventricles, sulci and cisterns remain prominent, consistent with generalized tissue loss, more than expected for the patient's age. There is no mass, mass effect or hemorrhage. No evidence of an acute territorial infarct. No extra-axial fluid collection. There is persistent patchy low attenuation in the periventricular and subcortical white matter which is nonspecific but probably reflects the sequela of small-vessel ischemic disease in a patient of this age. The visualized paranasal sinuses and mastoid air cells are well-aerated. No air-fluid levels to suggest acute sinusitis. The visualized globes appear intact. There is no evidence of an acute displaced skull fracture. CT of the cervical spine: These images are slightly degraded by patient motion. The bones are well mineralized. The normal vertebral body heights are maintained. No prevertebral soft tissue swelling. No acute displaced fracture. There is reversal of the normal cervical lordosis, as before. There is multilevel degenerative disc disease with endplate osteophytes and loss of the normal intervertebral disc spaces diffusely throughout the cervical spine but most pronounced at C2 through C6. There is bilateral facet joint hypertrophy with narrowing of the neural foramina at multiple levels. The dens appears intact. The lateral masses of C1 are normally located. There is a partially visualized central venous catheter in the right upper chest. There is atherosclerosis at the left carotid bifurcation. The thyroid gland is not well visualized. The lung apices are well-aerated. There are multiple small cervical lymph nodes in the anterior and posterior cervical triangles. Impression Head CT: No acute intracranial process. Generalized tissue loss, more than expected for the patient's age. Small-vessel ischemic disease, as before. CT of the cervical spine: Limited study secondary to patient motion. No acute displaced fracture. Reversal of the normal cervical lordosis, as before, likely related to degenerative disc disease. Multilevel degenerative disc disease. Facet joint hypertrophy and narrowing of the neural foramina at multiple levels. Partially visualized right-sided central venous catheter. CT Chest Abdomen Pelvis Trauma With Contrast Narrative EXAM DESCRIPTION: CT CHEST ABDOMEN PELVIS TRAUMA W CONTRAST CLINICAL HISTORY: Falls. Failure to thrive. COMPARISON: CXR dated 12/26/2024. CT of the abdomen pelvis dated 12/20/2022. CONTRAST: 100ml of Omnipaque 350 were administered. TECHNIQUE: The standard 5 mm sequential axial images were obtained through the chest, abdomen and pelvis. Coronal and sagittal reconstructions were also obtained. The pelvis was imaged to completely assess for acute pathology. FINDINGS: Lung tian: The lungs are well aerated and clear. No significant lung nodules or masses are identified. No interstitial abnormalities are identified. There is no evidence of bronchiectasis. There is a small right pleural effusion. No pneumothorax. Heart and Mediastinum: The heart and great vessels are normal for age. No mediastinal or hilar lymphadenopathy is identified. Airways: The trachea and central bronchi are widely patent and clear without filling defects identified. Neck structures: There is a thyroid goiter. Hepatobiliary: The liver is normal. There is cholelithiasis. The intrahepatic and extrahepatic bile ducts are normal. There is calcification of the pancreas as could be seen with chronic pancreatitis.There is stranding and fluid about the tail of the pancreas, which appears secondary to ruptured left renal cyst. The spleen is normal. Genitourinary: Right adrenal gland is unremarkable. There is a 1.4 cm left adrenal nodule, unchanged. The kidneys are atrophic bilaterally. There is a 3.3 cm left renal cyst which appears acutely hemorrhagic with rupture. No active bleeding seen. No renal masses or stones. No hydronephrosis. The pelvic organs and bladder are unremarkable. Bowel and peritoneal cavity: No evidence of appendicitis. The transverse colon appears somewhat collapsed and featureless. There is diverticulosis. Elsewhere, no bowel related obstruction or perforation is detected. No ascites or peritoneal fluid collections are identified. There is no evidence of free intraperitoneal air. No abdominal wall hernia is identified. Retroperitoneum: There is no evidence of retroperitoneal or pelvic lymphadenopathy. The retroperitoneal vascular structures appear normal. Bones and soft tissues: There are subacute fractures of the right posterior 9-11th ribs. There is hardware in the right hip. There is a wedge deformity of T8. This appears to be chronic. There is gynecomastia. Impression 1. No convincing evidence of acute traumatic injury. 2. Subacute fractures of the right posterior 9-11th ribs with small effusion. 3. Left renal cyst which previously appeared simple, now hemorrhagic. Rupture is suspected (perinephric fluid and fluid about tail of the pancreas). No active bleeding. 4. Somewhat collapsed and featureless transverse colon could reflect colitis. 5. Other findings as above. Laboratory: Lab Results Component Value Date WBC 8.59 01/27/2025 HGB 8.9 (L) 01/27/2025 HCT 27.6 (L) 01/27/2025 PLT 295 01/27/2025 CHOL 135 04/18/2024 TRIG 161 (H) 04/18/2024 HDL 45 04/18/2024 ALT 54 (H) 01/27/2025 AST 52 (H) 01/27/2025 NA 137 01/27/2025 K 6.0 (H) 01/27/2025 CL 96 (L) 01/27/2025 CREATININE 15.40 (H) 01/27/2025 BUN 95 (H) 01/27/2025 CO2 23 (L) 01/27/2025 TSH 1.43 12/26/2024 INR 1.1 01/27/2025 HGBA1C 5.7 (H) 08/03/2023 EKG: Normal sinus rhythm Left axis deviation Right bundle branch block Abnormal ECG Code Status: full MEDS Scheduled Meds:Scheduled Medications[1] Continuous Infusions:Infusions Meds[2] PRN Meds:.PRN Medications[3] Assessment/Plan: This is a 65 y.o. male PMH significant for ESRD on HD, polysubstance abuse with cocaine and alcohol, COPD, h/o alcohol withdrawal syndrome and DT's p/w fall and generalized weakness after missing dialysis. 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 procedure list. Signed By: Emma Siddiqi MD [1] thiamine, 200 mg, Intravenous, Daily [2] [3] documented in this encounter Procedure Notes * Pinky Nichols RN - 01/29/2025 4:10 AM ESTAssociated Order(s): HEMODIALYSIS INPATIENT Hemodialysis Nursing Procedure Note Patient: Sushant Christianson : 1960 CSN: [id number] Treatment Summary: Pt oriented x3. HD tx initiated via right tunneled CVC. Dsg C/D/I. Pt. dialyzed for 3 hours on a 3K/2.5ca bath per K = 4.6. VSS. NVR = 2.8 Liters. Next HD tx scheduled for Sunday(01/31) Events or Complications during HD (if any): none Net Ultrafiltration: 2.8 L Brief physical exam: Lungs: Decreased breath sounds Heart: RRR Peripheral edema: Trace edema Dialysis access type: Left neck tunneled catheter Dialysis Prescription: Bath Settings: Potassium: 3 mEq Calcium: 2.5 mg Sodium: 140 mEq Bicarb: 35 mEq Time on Dialysis: 3 hours Blood Flow Rate: 350 Dialysate Flow Rate: 700 mL/min Medications: Heparin Dose: Heparin-free IRAIS Dose: Retacrit, 10,000 units Vitamin D Analogs: None Venofer Dose: None Antibiotics: None Catheter lumen dwell: Heparin, 5000 units/mL Schedule: Dialysis schedule: of next hemodialysis: Sunday Time of next hemodialysis: To be determined Pinky Nichols RN 01/29/2025 * Pinky Nichols RN - 01/27/2025 11:23 PM ESTAssociated Order(s): HEMODIALYSIS INPATIENT Hemodialysis Nursing Procedure Note Patient: Sushant Christianson : 1960 CSN: [id number] Treatment Summary: Pt. A&O x3. Last HD tx Sunday (01/20). STAT HD tx initiated per K = 6.0 then 5.4. Pt. dialyzed for 3 hours on a 2K/2.5ca bath. VSS. NVR = 3.0 Liters. Next HD tx scheduled for (01/29) Events or Complications during HD (if any): none Net Ultrafiltration: 3.0 L Brief physical exam: Lungs: Bibasilar crackles Heart: RRR Peripheral edema: Trace edema Dialysis access type: Right neck tunneled catheter Dialysis Prescription: Bath Settings: Potassium: 2 mEq Calcium: 2.5 mg Sodium: 140 mEq Bicarb: 35 mEq Time on Dialysis: 3 hours Blood Flow Rate: 350 Dialysate Flow Rate: 600 mL/min Medications: Heparin Dose: Heparin-free IRAIS Dose: Retacrit, 10,000 units Vitamin D Analogs: None Venofer Dose: None Antibiotics: None Catheter lumen dwell: Heparin, 5000 units/mL Schedule: Dialysis schedule: Day of next hemodialysis: Time of next hemodialysis: To be determined Pinky Nichols RN 01/27/2025 documented in this encounter Consult Notes * Julian Oneill NP - 01/29/2025 1:03 PM EST Behavioral Health Initial Consult Report Patient: Sushant Christianson : 1960 Attending: Gelacio Garcia MD Admit Date: 01/27/2025 Today's Date: 01/29/2025 Current Time: 1:03 PM Consult Requested by: Hospitalist Service Reason for Consult: Severe Depression History of Present Illness and Reason for Hospitalization: Per initial H&P: This is a 65 y.o. male PMH significant for ESRD on HD, polysubstance abuse with cocaine and alcohol, COPD, h/o alcohol withdrawal syndrome and DT's p/w fall and generalized weakness. Patient has missed 2 sessions of dialysis because he says he was severely depressed and did not want to leave the house. Denies suicidal or homicidal ideations. No chest pain or sob. He has been drinking alcohol daily and smoking cigarettes. Says he had multiple falls over the last week but denies any head trauma or pain anywhere. No other complaints. Pt noted that when he drinks ETOH he gets increasingly depressed. Pt noted he was drinking 1.5 pints of vodka per day. Pt noted modd as improving in the hospital. I spoke to [facility] pharmacy. They noted the following psych rx: Lamictal 25 mg daily Rexulty 3 mg daily Zyprexa 10 mg bid Zoloft 200 mg daily Medical History: Past Medical History[1] Past Surgical History[2] Psychiatric History: Pt reported hx of Home Medications: Prescriptions Prior to Admission[3] Recent Results (from the past 24 hours) CBC Collection Time: 01/29/25 4:07 AM Result Value Ref Range WBC 6.28 4.00 - 11.00 K/uL RBC 2.86 (L) 4.10 - 5.60 M/uL Hemoglobin 8.3 (L) 12.7 - 16.7 g/dL Hematocrit 26.3 (L) 38.1 - 50.1 % MCH 29.0 23.0 - 37.0 pg MCHC 31.6 29.0 - 38.0 g/dL MCV 92 82 - 98 fL RDW 15.4 (H) 11.5 - 14.5 % Platelet Count 261 150 - 450 K/uL MPV 10.2 6.0 - 14.0 fL Basic Metabolic Panel Collection Time: 01/29/25 4:07 AM Result Value Ref Range Sodium 138 135 - 146 mmol/L Potassium 3.5 3.4 - 5.2 mmol/L Chloride 100 98 - 110 mmol/L Total CO2/Bicarbonate 27 24 - 32 mmol/L Anion Gap 11 2 - 15 mmol/L BUN 13 7 - 24 mg/dL Creatinine, Blood 3.20 (H) 0.60 - 1.30 mg/dL Glucose, Blood 100 50 - 100 mg/dL Calcium 9.5 8.5 - 10.5 mg/dL Estimated GFR (MDRD) 20 (L) >=60 mL/min/BSA Current Medications: Current Facility-Administered Medications[4] Laboratory: Recent Results (from the past 24 hours) CBC Collection Time: 01/29/25 4:07 AM Result Value Ref Range WBC 6.28 4.00 - 11.00 K/uL RBC 2.86 (L) 4.10 - 5.60 M/uL Hemoglobin 8.3 (L) 12.7 - 16.7 g/dL Hematocrit 26.3 (L) 38.1 - 50.1 % MCH 29.0 23.0 - 37.0 pg MCHC 31.6 29.0 - 38.0 g/dL MCV 92 82 - 98 fL RDW 15.4 (H) 11.5 - 14.5 % Platelet Count 261 150 - 450 K/uL MPV 10.2 6.0 - 14.0 fL Basic Metabolic Panel Collection Time: 01/29/25 4:07 AM Result Value Ref Range Sodium 138 135 - 146 mmol/L Potassium 3.5 3.4 - 5.2 mmol/L Chloride 100 98 - 110 mmol/L Total CO2/Bicarbonate 27 24 - 32 mmol/L Anion Gap 11 2 - 15 mmol/L BUN 13 7 - 24 mg/dL Creatinine, Blood 3.20 (H) 0.60 - 1.30 mg/dL Glucose, Blood 100 50 - 100 mg/dL Calcium 9.5 8.5 - 10.5 mg/dL Estimated GFR (MDRD) 20 (L) >=60 mL/min/BSA Allergies: Patient has no known allergies. Substance Abuse History: Pt noted hx of ETOH dep and recently using 1.5 pints of Vodka per day. Social History[5] Violent/Criminal History: denied Social History: Marital Status: Single [1] Employment Status: Disabled [100] Employer: Family History: Family History[6] Code Status: Full Code Review of Systems: Patient's depressive symptoms include depressed mood. Psychological ROS: positive for - depression Mental Status Exam: Appearance: stated age Perception:No AH/VH Behavior: cooperative, calm, and pleasant Speech: regular rate, regular rhythm, and regular volume Language: intact Attention: intact Concentration: intact Orientation: date, person, place, city, president, purpose of interview/hospitalization Memory: intact Fund of Knowledge: intact Thought Process: organized and goal-directed Thought Content: No SI/Hi/Delusions/obsessions Mood: depressed Affect: appropriate Judgment: intact Insight: intact Diagnosis: Mood Disorder NOS Assessment: This is a 65 yo male with a self reported hx of depression and ETOH dep. Pt noted with use of ETOH he becomes increasingly depressed and typically his mood is well managed with is psych rx. I did confirm pt's psych rx as above through his pharmacy. Pt noted improved mood now that he hasbeen able to be away from alcohol for a few days. I would maintain present psych rx. Suicide: Is this Consult for Suicidality? No C-SSRS Screening Since Last Contact (Low - 1 or 2, Mod - 3, High - 4, 5 or 6) [Ask questions 1, 2 and 6. If YES to 2, ask questions 3, 4, 5, and 6] 1. Have you wished you were or wished you could go to sleep and not wake up? no 2. Have you actually had any thoughts of killing yourself? no 3. Have you been thinking about how you might do this? no 4. Have you had these thoughts and had some intention of acting on them? no 5. Have you started to work out or worked out the details of how to kill yourself and do you intendto carry out this plan? no 6. Have you done anything, started to do anything, or prepared to do anything to end your life? no Suicide Risk Assessment: The patient's risk factors include age > 50, male gender, recent or past impulsivity, diagnosis of major mental illness or personality disorder, and alcohol/substance abuse, intoxication or withdrawal. The patient's protective factors include identifies reason for living, supportive family or social network, hopefulness, future-orientation, and housing. Suicide Risk Level: Based on a review of the risk and protective factors and on the clinical interview, I believe that: The patient's acute risk of suicide is Low. Management of Suicide Risk: Because the patient does not have active suicidal ideation, plan or intent and the patient is willing to get help if unable to maintain his/her safety in the community. Access to Weapons: No Recommendation/Plan: Continue outpatient psych rx. I change Zoloft from 100 mg bid to 200 mg daily as prescribed outpatient I would continue Rexulty. If receiving antipsychotic medication: Hold antipsychotic for QTc > 500 ms. Maintain K>4 and Mag> 2. Discussed With Medical Team: I reviewed case with Dr. Garcia Time Spent: 35 minutes Signed by: Julian Oneill NP 01/29/2025 [1] Past Medical History: Diagnosis Date Alcohol dependence ([facility]) Alcoholic fatty liver 11/22/2020 Anemia of chronic disease 02/22/2022 Anxiety and depression 11/22/2020 Bacteremia 10/17/2022 Kruse's esophagus without dysplasia 12/24/2019 BPH with urinary obstruction 10/10/2018 Chronic obstructive pulmonary disease, unspecified ([facility]) 11/22/2020 CKD (chronic kidney disease) ESRD (end stage renal disease) ([facility]) 11/02/2022 Gastro-esophageal reflux disease without esophagitis 11/22/2020 HCAP (healthcare-associated pneumonia) 06/18/2022 Hyperlipidemia Hypertension 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 Polysubstance abuse ([facility]) 01/28/2021 Suicidal ideation 02/08/2023 Syncope 12/20/2022 [2] Past Surgical History: Procedure Laterality Date INTERVENTIONAL RADIOLOGY PROCEDURE N/A 08/06/2023 Surgeon: PRESTON Boateng; Location: [facility]; Service: Vascular and Interventional Radiology; Laterality: N/A; arm surgery Left [3] Medications Prior to Admission Medication Sig acetaminophen (TYLENOL) 500 MG tablet Take 1 tablet (500 mg total) by mouth every 6 hours as needed. aspirin 81 MG EC tablet Take 1 tablet (81 mg total) by mouth daily for 30 days. atorvaSTATin (LIPITOR) 80 MG tablet Take 1 tablet (80 mg total) by mouth at bedtime for 30 days. clopidogreL (PLAVIX) 75 mg tablet Take 1 tablet (75 mg total) by mouth daily for 20 days. ferrous sulfate 324 mg (65 mg iron) TbEC Take 1 tablet (324 mg total) by mouth daily with breakfast. folic acid (FOLVITE) 1 MG tablet Take 1 tablet (1 mg total) by mouth daily. hydrOXYzine HCL (ATARAX) 10 MG tablet Take 1 tablet (10 mg total) by mouth every 8 hours as needed for anxiety. lamoTRIgine (LaMICtal) 25 MG tablet Take 1 tablet (25 mg total) by mouth in the morning. LOKELMA 5 gram PwPk powder packet Take 1 packet (5 g total) by mouth daily with breakfast. melatonin 3 mg Tab tablet Take 1 tablet (3 mg total) by mouth every evening. (Patient taking differently: Take 2 tablets (6 mg total) by mouth every evening.) midodrine (PROAMATINE) 2.5 MG tablet Take 1 tablet (2.5 mg total) by mouth daily as needed (sbp <100mm Hg). OLANZapine (ZyPREXA) 10 MG tablet Take 1 tablet (10 mg total) by mouth every morning & every evening. pantoprazole (PROTONIX) [address] tablet Take 1 tablet (40 mg total) by mouth every morning & every evening for 30 days. REXULTI 3 mg Tab Take 1 tablet (3 mg total) by mouth in the morning. sertraline (ZOLOFT) 100 MG tablet Take 1 tablet (100 mg total) by mouth every morning & every evening. sevelamer carbonate (RENVELA) 800 mg tablet Take 1 tablet (800 mg total) by mouth 3 times a day with meals. thiamine (Vitamin B1) 100 MG tablet Take 1 tablet (100 mg total) by mouth in the morning. [4] Current Facility-Administered Medications Medication aspirin EC tablet 81 mg atorvaSTATin (LIPITOR) tablet 80 mg brexpiprazole (REXULTI) tablet 3 mg clopidogreL (PLAVIX) tablet 75 mg epoetin naif-epbx (RETACRIT) injection 10,000 Units ferrous sulfate tablet 325 mg Multivitamin with Minerals tablet 1 tablet And folic acid (FOLVITE) tablet 1 mg gabapentin (NEURONTIN) capsule 100 mg heparin (porcine) injection 5,000 Units lamoTRIgine (LaMICtal) tablet 25 mg melatonin tablet 6 mg metoprolol tartrate (LOPRESSOR) tablet 25 mg OLANZapine (ZyPREXA) tablet 10 mg pantoprazole (PROTONIX) DR tablet 40 mg peripheral line: sodium chloride (NS) 0.9% flush sertraline (ZOLOFT) tablet 100 mg sevelamer carbonate (RENVELA) tablet 800 mg sodium zirconium cyclosilicate (LOKELMA) powder packet 5 g thiamine (B1) injection 200 mg Followed by [START ON 01/31/2025] thiamine tablet 100 mg [5] Social History Tobacco Use Smoking status: Every Day Current packs/day: 1.00 Types: Cigarettes Substance Use Topics Alcohol use: Yes Alcohol/week: 28.0 - 63.0 standard drinks of alcohol Types: 28 - 63 Standard drinks or equivalent per week Comment: 1 1/2 pints daily Drug use: Yes Types: Cocaine, Crack cocaine Comment: occasional [6] Family History Problem Relation Name Age of Onset Diabetes Mother d. 88 Thyroid disease Mother Depression Father Cosigned by Heather Colorado MD at 01/30/2025 11:34 AM EST * Elsa Obando PRE CERTIFICATION SPECIALIST - 01/28/2025 3:21 PM ESTAssociated Order(s): IP CONSULT TO SOCIAL WORK Social Work - Initial Assessment Patient: Sushant Christianson : 1960 Age: 65 y.o. Gender: male Relationship status: single Income Source: Income Information Financial concerns: No Insurance: Payor: MEDICARE / Plan: MEDICARE A & B / Product Type: Traditional / Indemnity / Income or financial concerns: Financial concerns: No Location: [address] Admit Date: 01/27/2025 Inpatient Status Admit Date: 01/27/25 Spoke with patient. Social Work assessment completed. Patient is able to participate in interview. Insert Patient preferred language: Cymro Linoleum Tile Floor Layer utilized: No Communication Barriers: patient's cognition waxed and waned a bit during assessment but he was ableto adequately participate in today's assessment. Active Problems: Hyperkalemia Advance directives on file: Yes, patient has health care proxy on file. Per document HCP if invokedwould be Estela langston) at phone: [phone].. Code Status: Full Code Assessment: Referral Data Referral Source: Nurse Referral Reason: Substance use Patient Information Type of Residence: Private residence Who lives with you here: lives alone Living Arrangement: Private residential Primary Caregiver: Self Support System: Agencies/programs Agency contact information: [place], [facility]. Transportation Needs In the past 12 months, has lack of transportation kept you from medical appointments or from getting medications?: No In the past 12 months, has lack of transportation kept you from meetings, work, or from getting things needed for daily living?: No Food Insecurity Within the past 12 months, you worried that your food would run out before you got the money to buymore.: Never true Within the past 12 months, the food you bought just didn't last and you didn't have money to get more.: Never true Stress Do you feel stress - tense, restless, nervous, or anxious, or unable to sleep at night because yourmind is troubled all the time - these days?: Rather much Social Connections Are you , , , , never , or living with a partner?: (has a gf who visits on regular basis. she lives in [place]) Intimate Partner Violence Within the last year, have you been afraid of your partner or ex-partner?: No Within the last year, have you been humiliated or emotionally abused in other ways by your partner or ex-partner?: No Within the last year, have you been kicked, hit, slapped, or otherwise physically hurt by your partner or ex-partner?: No Within the last year, have you been raped or forced to have any kind of sexual activity by your partner or ex-partner?: No Violence/Abuse/Safety Concerns: denies Identified strengths and coping: has his own apartment, is support by [facility] services, hastransportation to dialysis set up. Patient/family understanding of illness/condition: patient presents with limited insight regarding connection to his behaviors and repeat hospitalizations, though today he states that he purposely missed dialysis ( 3 x per patient) stating he didn't care if he lived. Impressions/Clinical Formulation: Patient is a 65 year old male who is known to this SW. He arrivedat ER by ambulance on 01/27 with complaint of failure to thrie, depression, frequent falls and had stopped dialysis for a week. Patient also reported drinking a half pint of etoh prior to arriving at ED. Last dialysis was 01/20/25. SW asked to see patient regarding etoh use. Patient last assessment which was completed on 12/29/2024. At that time patient's resources were as follows: Pt has had [facility] in daily for meds ([phone]). Referral is in [facility]. Pt confirms he has [facility] ([phone]). He shares he connects with mental health care provider Debra from [facility] every Sunday, states she calls in any prescriptions and provides therapy. Today patient was uncertain what services he receives. Patient presented with flat/depressed affected. He tells SW that he is sick of getting dialysis. Cheryl states that he knows what would happen if he stopped dialysis. He denied interest in stopping drinking but says he would talk to a RC. He acknowledged depression and was non committal when askedif he was suicidal, he instead stated: I don't care if I live . He did state that if doctor wantedhim to , he would speak with someone from psychiatry. He was not sure last time he spoke with therapist. He does still get daily meals, from [facility]. It is unclear if patient is currently receiving any home planning consultant salesperson or [employer] services. He reports that gf still comes to visit him and that she and he drink together and she helps him with things. It is unclear if patient is suicidal or expressing informed wishes regarding his health care. As patient clears both medically and cognitively this may be easier to assess/determine. Interventions: Chart review, Supportive counseling, assessment of mood. Review of community resources. SW called [facility] who stated that they had been referred to visit daily for medicationmanagement but patient declined their services stating that he only wanted a housekeeping department worker. SW called and left a message with [facility]. Call went to requesting a return call. SW trying to clarify what services patient is actually receiving as this may also be impacting patient's re-hospitalizations. SW communicated with care team asking MD for psychiatric consult, if he agreed. SW to put consult in to Addictions Services. Plan: SW to continue to follow and provide support/updates, as warranted, throughout duration of patient's hospitalization. INDIRA Andrea 01/28/2025 * Annette Stanton MD - 01/27/2025 2:03 PM ESTAssociated Order(s): IP CONSULT TO NEPHROLOGY Nephrology Inpatient Consultation Date of Service: 01/27/2025 Patient: Sushant Christianson : 1960 Admission Date: 01/27/2025 Date of consult: 01/27/25 CSN: [id number] Room/Bed: Reason For Consultation: Hyperkalemia Requesting Physician: Leticia Gilmore MD History of Present Illness: Sushant Christianson is a 65 y.o. male with past medical history significant for ESRD on hemodialysis, polysubstance abuse including cocaine and alcohol, COPD, history of alcohol withdrawal syndrome and DTs presented emergency with fall and generalized weakness. Patient reported his last session of hemodialysis was on last Saturday 01/20 and missed 2 sessions since then. He felt very depressed and did not want to leave the house and not going to dialysis center. Patient denies shortness of breath at rest or swelling of her extremities. ED course: Blood pressure 171/118 mmHg, pulse rate 85 bpm, respiration rate 18/min, temperature 97.8, saturation 98% on room air. Laboratory findings reveal elevated potassium level 6.0, BUN of 95 and creatinine of 15.4. EKG revealed normal sinus rhythm and left axis deviation, right bundle branch block. No EKG changes for hyperkalemia. Patient was given medical treatment for hyperkalemia including insulin, dextrose, calcium gluconate and Lokelma. Nephrology History: ESRD, documentation unavailable, but presumed hypertension/microvascular disease Started on in center hemodialysis 02/14, , Sunday schedule at [place] dialysis Followed by Dr. Genevieve Grimaldo as an outpatient Uses a tunneled catheter for dialysis access Still with fairly good urine output and missed several dialysis treatments. Current Medications: Scheduled Meds:Scheduled Medications[1] Continuous Infusions:Infusions Meds[2] PRN Meds:.PRN Medications[3] Medications Prior to Admission: Prescriptions Prior to Admission[4] Allergies: Allergies[5] Past Medical & Surgical History: has a past medical history of Alcohol dependence ([facility]), Alcoholic fatty liver (11/22/2020), Anemia of chronic disease (02/22/2022), Anxiety and depression (11/22/2020), Bacteremia (10/17/2022), Kruse's esophagus without dysplasia (12/24/2019), BPH with urinary obstruction (10/10/2018), Chronic obstructive pulmonary disease, unspecified ([facility]) (11/22/2020), CKD (chronic kidney disease), ESRD (end stage renal disease) ([facility]) (11/02/2022), Gastro- esophageal reflux disease without esophagitis (11/22/2020), HCAP (healthcare- associated pneumonia) (06/18/2022), Hyperlipidemia, Hypertension, Perforated appendix (09/29/2021), Polysubstance abuse ([facility]) (01/28/2021), Suicidal ideation (02/08/2023), and Syncope (12/20/2022). has a past surgical history that includes arm surgery (Left) and Interventional radiology procedure(N/A, 08/06/2023). Social History: Social History[6] Family History: family history includes Depression in his father; Diabetes in his mother; Thyroid disease in his mother. Review of Systems: See history of present illness. No gross hematuria, no rash. General: Denies significant weight change, fatigue, fevers, chills, or sweats Skin: Denies any rashes or notable skin lesions CV: Denies chest pain, palpitations, claudication, edema Pulm: Denies SOB, cough, hemoptysis GI: Denies nausea, vomiting, abdominal pain, diarrhea Neuro: Denies headache, visual changes, paresthesias, dizziness, lightheadedess, gait instability, weakness, or falls : Denies back or flank pain, hematuria, dysuria Remainder of ROS negative. Physical Exam: Min/Max vitals over last 24 hours: BP Min: 171/118 Max: 171/118 Temp Min: 97.1 ??F (36.2 ??C) Max: 97.8 ??F (36.6 ??C) Pulse Min: 85 Max: 99 Resp Min: 13 Max: 18 SpO2 Min: 95 % Max: 98 % Weight Min: 79.4 kg (175 lb) Max: 79.4 kg (175 lb) Admission VS: BP (!) 171/118 (BP Location: Left arm, Patient Position: Lying) Pulse (!) 99 Temp97.1 ??F (36.2 ??C) (Rectal) Resp 13 Ht 1.778 m (5' 10 ) Wt 79.4 kg (175 lb) SpO2 95% BMI25.11 kg/m?? O2 Device: None (Room air) (01/27/25 1228) SpO2: 95 % (01/27/25 1314) General Appearance: Alert, cooperative, no distress Eyes: pale, not icteric HEENT: No JVD Lungs: Bilateral air entry +, no wheezing, no rales or rhonchi Heart: Regular rate and rhythm, No murmur, no gallop Abdomen: Soft, non-tenderness or rebound tenderness Extremities: No edema Pulses: intact Neurologic: Alert, Awake, Oriented x 4, no focal Access: Right IJ tunneled dialysis catheter Labs, Imaging & Other Studies: Labs: Results from last 7 days Lab Units 01/27/25 1240 WBC K/uL 8.59 HEMOGLOBIN g/dL 8.9* HEMATOCRIT % 27.6* PLATELETS K/uL 295 Results from last 7 days Lab Units 01/27/25 1240 SODIUM mmol/L 137 POTASSIUM mmol/L 6.0* CHLORIDE mmol/L 96* CO2 mmol/L 23* BUN mg/dL 95* CREATININE mg/dL 15.40* CALCIUM mg/dL 9.1 TOTAL PROTEIN g/dL 7.5 BILIRUBIN TOTAL mg/dL 0.4 ALK PHOS U/L 382* ALT U/L 54* AST U/L 52* GLUCOSE mg/dL 113* Lab Results Component Value Date ALT 54 (H) 01/27/2025 AST 52 (H) 01/27/2025 GGT 55 02/14/2010 ALKPHOS 382 (H) 01/27/2025 BILITOT 0.4 01/27/2025 ALB 4.1 01/27/2025 Lab Results Component Value Date CRP 182.0 (H) 08/06/2023 UA: Lab Results Component Value Date COLORU Yellow 12/28/2024 CLARITYU Slightly Cloudy (A) 12/28/2024 LABPH 8.0 12/28/2024 PROTEINUR 100 mg/dL (A) 12/28/2024 GLUCOSEU 50 mg/dL (A) 12/28/2024 KETONESU Negative 12/28/2024 BLOODU Negative 12/28/2024 LEUKOCYTEUR Trace (A) 12/28/2024 NITRITE Negative 12/28/2024 WBCU 5 (H) 12/28/2024 RBCU 4 (H) 12/28/2024 HYALINECAST 2-3 (A) 12/14/2022 BACTERIA Few (A) 12/28/2024 Results for orders placed or performed during the hospital encounter of 02/28/24 Culture, Blood Collection Time: 02/29/24 9:26 AM Specimen: Peripheral; Blood Result Value Ref Range Culture No growth after 5 days Culture, Blood Collection Time: 02/29/24 9:26 AM Specimen: Peripheral; Blood Result Value Ref Range Culture No growth after 5 days Imaging: No results found. Assessment & Plan: Sushant Christianson is a 65 y.o. male who presents with generalized weakness and missed hemodialysis for 2 sessions noted to have hyperkalemia and uremia. ESRD on hemodialysis Sunday, , Sunday Hyperkalemia Uremia Benign hypertensive kidney disease Anemia due to ESRD Assessment: Repeat serum potassium level 5.4 after medical treatment. Patient blood pressure is much better and no sign of volume overload. Recommendations: Will arrange hemodialysis today. Metabolic profile and CBC will be reviewed on a daily basis. HD: UF 1-2 liters as tolerated. Time 3.0 hours. Access right IJ tunneled dialysis catheter Dialysate 2 K, 2.5 Ca. Dialyzer F180 Blood flow (Qb) 400 ml/min, Dialysate flow (Qd) 800 ml/min Anticoagulation none ESRD related issues: 1. Anemia of chronic renal disease -Retacrit 32932 units IV on next HD 2. Electrolytes / acid-base - adequately controlled on intermittent hemodialysis 3. Blood pressure / volume -blood pressure elevated. Please resume home blood pressure medications. 4. Renal osteodystrophy / calcium / phosphorus - follow phosphorus every 2-3 days 5. Medications - dose for ESRD/hemodialysis Thank you very much for involving us in the care of your patient. I will continue to follow along as consult service and please let me know if I can be at all helpful during the remainder of hospitaladmission. Findings and suggestions were discussed with consulting team/physician. Total time spent on the day of counter 80 minutes including face to face and non-face to face encounter. Signed by: Annette Stanton MD [1] dextrose 50%, 25 g, Intravenous, Once insulin regular, 10 Units, Intravenous, Once sodium bicarbonate, 50 mEq, Intravenous, Once sodium zirconium cyclosilicate, 10 g, Oral, Once thiamine, 200 mg, Intravenous, Daily [2] [3] [4] (Not in a hospital admission) [5] No Known Allergies [6] Social History Socioeconomic History Marital status: Single Number of children: 0 Occupational History Occupation: Retired from [employer] Tobacco Use Smoking status: Every Day Current packs/day: 1.00 Types: Cigarettes Substance and Sexual Activity Alcohol use: Yes Alcohol/week: 28.0 - 63.0 standard drinks of alcohol Types: 28 - 63 Standard drinks or equivalent per week Comment: 1 1/2 pints daily Drug use: Yes Types: Cocaine, Crack cocaine Comment: occasional documented in this encounter ED Notes * Geoffrey Dorman RN - 01/27/2025 4:57 PM EST Pt ambulated to restroom with walker * Geoffrey Dorman RN - 01/27/2025 1:14 PM EST Pt has bruising and pain to left knee, at bedside * Geoffrey Dorman RN - 01/27/2025 12:19 PM EST Pt BIBA, coming from home, with complaint of failure to thrive, pt stating depression, with frequent falls on blood thinners and has not been to dialysis. Pt stated he was drinking a half pint of alcohol, pt stated sleep issues as of late. Pt denies SI/HI. Bruising on legs and on left sided chest. Pt last had dialysis on Sunday last 01/20/2025 * Leticia Gilmore MD - 01/27/2025 12:16 PM EST Images from the original note were not included. EMERGENCY DEPARTMENT ENCOUNTER PPE used during entire encounter with patient. This patient was evaluated in the emergency department today for the symptoms described in the history of present illness. Patient was evaluated in the context of global COVID-19 pandemic, which necessitated consideration that the patient might be at risk for infection with SARS-CoV-2 virus that causes COVID- 19. Institutional protocols and algorithms that pertain to the evaluation of patients at risk for COVID-19 are in a state of rapid change based on information released by multiple regulatory bodies including the CDC, federal and state organizations. These policies and algorithms were followed during the patient's care in the emergency department. CHIEF COMPLAINT Chief Complaint Patient presents with Weakness Fall HPI Sushant Christianson is a 65 y.o. male with end-stage renal disease on hemodialysis Sunday, , Sunday, history of polysubstance use including cocaine, COPD continues to smoke, depression with SI,alcohol use disorder, noncompliance with dialysis, poor gait, followed at [facility] nephrology, patient on aspirin and clopidogrel I'm not clear why (pt states he has no idea why) who is brought in by EMS from home after he called. He states he lives alone. Patient states that he has been having increasing depression although denies SI or HI. Due to his depression he has not gone to hemodialysis for 1 week. Initially stated that he was not taking his medications although he tells me he has been compliant. He has been drinking alcohol. Had to have a pint of alcohol today. States has had alcohol drawl seizures and DTs in the past. Denies other substance use. Patient has history of frequent falls states has had multiple falls in the last week last was yesterday evening. He notes mild neck pain from the fall but no other complaints from the falls. No headache or LOC. Has had a congested cough for over a month which he feels is unchanged. He has had no chest pain, shortness of breath, lightheadedness, or dizziness. Epic and or Care Everywhere reviewed: For past medical history. 12/29/2024 discharge summary reviewed: Admitted with hypotension/SIRS. Dr Rodriguez from nephrology was consulted during admission. REVIEW OF SYSTEMS Constitutional: No fever, chills, or sweats. Eyes: No change in visual acuity. HEAD: No WILL. Pulmonary: Noshortness of breath Cardiovascular: No chest pain. No dizziness. GI: No abdominal pain, nausea, or vomiting. No diarrhea, bright red blood per rectum, or melena. : Minimal urine output Musculoskeletal: No back pain and no extremity pain. Neurologic: No numbness, tingling, or weakness of the extremities. Vaccinations: Last tetanus immunization 09/20/2016. Patient has received primary vaccinations. PAST MEDICAL HISTORY Past Medical History[1] Problem List[2] SURGICAL HISTORY Past Surgical History[3] CURRENT MEDICATIONS Patient Medication List Previous Medications ACETAMINOPHEN (TYLENOL) 500 MG TABLET ASPIRIN 81 MG EC TABLET ATORVASTATIN (LIPITOR) 80 MG TABLET CLOPIDOGREL (PLAVIX) 75 MG TABLET FERROUS SULFATE 324 MG (65 MG IRON) TBEC FOLIC ACID (FOLVITE) 1 MG TABLET HYDROXYZINE HCL (ATARAX) 10 MG TABLET LAMOTRIGINE (LAMICTAL) 25 MG TABLET LOKELMA 5 GRAM PWPK POWDER PACKET MELATONIN 3 MG TAB TABLET MIDODRINE (PROAMATINE) 2.5 MG TABLET OLANZAPINE (ZYPREXA) 10 MG TABLET PANTOPRAZOLE (PROTONIX) [address] TABLET REXULTI 3 MG TAB SERTRALINE (ZOLOFT) 100 MG TABLET SEVELAMER CARBONATE (RENVELA) 800 MG TABLET THIAMINE (VITAMIN B1) 100 MG TABLET ALLERGIES Allergies[4] SOCIAL HISTORY Social History[5] FAMILY HISTORY Family History[6] PHYSICAL EXAM VITAL SIGNS: ED Triage Vitals [01/27/25 1221] Encounter Vitals Group BP (!) 171/118 Girls Systolic BP Percentile Girls Diastolic BP Percentile Boys Systolic BP Percentile Boys Diastolic BP Percentile Heart Rate 85 Resp 18 Temp 97.8 ??F (36.6 ??C) Temp Source Oral SpO2 98 % Actual Weight 79.4 kg (175 lb) Height 1.778 m (5' 10 ) Head Circumference Peak Flow Pain Score Pain Loc Pain Education Exclude from Growth Chart Constitutional: Awake, Alert, Well developed, well nourished, no acute distress, non-toxic appearance. Eyes: Conjugate, Anicteric, EOMI, PERRL. Ears: No Pop sign. Nose: No deformity or significant swelling. Head: Atraumatic, normocephalic. No scalp hematoma. Oral Exam: Mucus membranes pink and moist. No asymmetry or edema. Ketones on breath. Neck: No posterior midline or paravertebral tenderness. Trachea is midline. No crepitus. Good rangeof motion without significant discomfort. No distracting injury. Cardiovascular: Regular rate and rhythm, No murmur. Chest wall: Multiple purpleish ecchymoses however nontender. No step-off crepitus. No costal margintenderness. Right chest hemodialysis catheter dressing was almost off, this was replaced by iv nurse. Respiratory: No respiratory distress, normal breath sounds. Good tidal volumes. Abdomen : Normal Bowel sounds, Soft, Non-tender, Non-distended, No HSM, No Masses. No tenderness inthe left upper or right upper quadrants. Back: No midline or paravertebral tenderness, no CVA tenderness. No ecchymoses or abrasions. Musculoskeletal: RP 3+ bilaterally. No cyanosis, clubbing, edema. Except left knee: All joints have good range of motion. No bony tenderness. Pelvis stable and non-tender. Left knee/extremity: No redness or warmth. Diffusely ecchymotic with mild swelling extending to the baeza area Capillary refill is intact in all digits. no patellar ballottement Knee has full range of motion. Diffuse tenderness. No other bony tenderness including no tenderness of the tibial plateau, fibular head, or femoral condyles. Anterior and posterior drawer tests are negative. L2 through S1 motor function is intact, sensation is intact throughout. There is full extension of the knee against resistance. Skin: No abrasions or lacerations. Neurologic: GCS 15. Alert & oriented x 4 although went left alone he falls asleep and snores but wakes up immediately to voice, facial muscles symmetric, sensation intact throughout. Strength 5/5bilateral UE and LE. Rectal: Normal tone, light brown stool. Rectal temperature 97.1. ED COURSE & MEDICAL DECISION MAKING Patient presents with multiple falls that appear to be mechanical due to chronic poor gait and history of recurrent falls along with increasing depression although he denies SI he has been noncompliant with his dialysis and possibly with his medications. He has been abusing alcohol. Patient coveredin bruises. Overall suspicion of significant injury low. Left knee is similar significant finding and likely due to severe contusion rather than fracture. Patient however on aspirin and clopidogrel and at high risk of internal hemorrhage. Patient will be watkins scanned with IV contrast. Will talk with nephrology to arrange dialysis. Patient will be treated with thiamine while workup is in process. Will monitor for alcohol drawl and treat with benzodiazepines as needed. ED Course Update/Addendum: BP (!) 171/118 (BP Location: Left arm, Patient Position: Lying) Pulse (!) 99 Temp 97.1 ??F (36.2 ??C) (Rectal) Resp 13 Ht 1.778 m (5' 10 ) Wt 79.4 kg (175 lb) SpO2 95% BMI 25.11 kg/m?? LABS Results for orders placed or performed during the hospital encounter of 01/27/25 (from the past 24 hours) Basic Metabolic Panel Result Value Ref Range Sodium 137 135 - 146 mmol/L Potassium 6.0 (H) 3.4 - 5.2 mmol/L Chloride 96 (L) 98 - 110 mmol/L Total CO2/Bicarbonate 23 (L) 24 - 32 mmol/L Anion Gap 19 (H) 2 - 15 mmol/L BUN 95 (H) 7 - 24 mg/dL Creatinine, Blood 15.40 (H) 0.60 - 1.30 mg/dL Glucose, Blood 113 (H) 50 - 100 mg/dL Calcium 9.1 8.5 - 10.5 mg/dL Estimated GFR (MDRD) 3 (L) >=60 mL/min/BSA Magnesium Result Value Ref Range Magnesium, Blood 2.1 1.6 - 2.6 mg/dL Troponin Result Value Ref Range Troponin T HS 112 (H) <52 ng/L CBC and Differential Result Value Ref Range WBC 8.59 4.00 - 11.00 K/uL RBC 3.04 (L) 4.10 - 5.60 M/uL Hemoglobin 8.9 (L) 12.7 - 16.7 g/dL Hematocrit 27.6 (L) 38.1 - 50.1 % MCH 29.3 23.0 - 37.0 pg MCHC 32.2 29.0 - 38.0 g/dL MCV 91 82 - 98 fL RDW 15.6 (H) 11.5 - 14.5 % Platelet Count 295 150 - 450 K/uL MPV 10.2 6.0 - 14.0 fL Neutrophil 75.5 % Lymphocyte 11.6 % Monocyte 10.2 % Eosinophil 1.2 % Basophil 0.7 % Immature Granulocyte ([place], Myelo, Promyelocyte) 0.8 % Absolute Neutrophil Count 6.48 1.50 - 7.70 K/uL Absolute Immature Granulocyte ([place], Myelo, Promyelocyte) 0.07 0.00 - 0.09 K/uL Absolute Lymphocyte Count 1.00 (L) 1.50 - 4.00 K/uL Absolute Monocyte Count 0.88 0.16 - 1.26 K/uL Absolute Eosinophil Count 0.10 (L) 0.15 - 0.30 K/uL Absolute Basophil Count 0.06 0.00 - 0.21 K/uL Blue Top Result Value Ref Range Blue Top Tube Received Toxicology Screen, Blood Result Value Ref Range Acetaminophen Result,Blood 7 (L) 10 - 30 ug/mL Alcohol <10 <10 mg/dL Salicylate Level, Blood <1 <30 mg/dL Hepatic Function Panel Result Value Ref Range Total Protein 7.5 6.2 - 8.2 g/dL Albumin, Blood 4.1 3.4 - 5.2 g/dL Globulin Result 3.4 2.0 - 4.0 g/dL Total Bilirubin 0.4 0.2 - 1.2 mg/dL Direct Bilirubin 0.1 0.1 - 0.5 mg/dL Alkaline Phosphatase 382 (H) 30 - 115 U/L AST (SGOT) 52 (H) 11 - 40 U/L ALT (SGPT) 54 (H) 7 - 40 U/L Hepatitis B Surface Antigen Result Value Ref Range Hep B [place] Ag Negative Negative POCT Glucose Result Value Ref Range Glucose, POC 102 70 - 118 mg/dL Troponin (once) Result Value Ref Range Troponin T HS 87 (H) 0 - <52 ng/L PT-INR Result Value Ref Range Prothrombin Time 14.9 (H) 12.2 - 14.2 s INR 1.1 0.9 - 1.1 APTT Result Value Ref Range PTT 33 22 - 36 s Covid/Flu/RSV (Rapid) Result Value Ref Range Coronavirus SARS-CoV-2 Not Detected Not Detected Influenza A Not Detected Not Detected Influenza B Not Detected Not Detected RSV by PCR Not Detected Not Detected Venous Blood Gas Result Value Ref Range pH, Venous 7.46 (H) 7.32 - 7.42 pCO2, Venous 31 (L) 38 - 49 mmHg pO2, Venous 32 No Reference Range mmHg HCO3, Venous 22 18 - 32 mmol/L % O2Hb, Venous 65 No Established Reference Range % Base Excess, Venous -1.5 (L) 0.0 - 3.0 mmol/L Carboxyhemoglobin, VBG 4.8 (H) 0.5 - 1.5 % Methemoglobin, VBG 1.2 (H) <1.0 % Patient Temperature 98.6 POCT Glucose Result Value Ref Range Glucose, POC 157 (H) 70 - 118 mg/dL RADIOLOGY CT Chest Abdomen Pelvis Trauma With Contrast Result Date: 01/27/2025 EXAM DESCRIPTION: CT CHEST ABDOMEN PELVIS TRAUMA W CONTRAST CLINICAL HISTORY: Falls. Failure to thrive. COMPARISON: CXR dated 12/26/2024. CT of the abdomen pelvis dated 12/20/2022. CONTRAST: 100ml of Omnipaque 350 were administered. TECHNIQUE: The standard 5 mm sequential axial images were obtained through the chest, abdomen and pelvis. Coronal and sagittal reconstructions were also obtained. The pelvis was imaged to completely assess for acute pathology. FINDINGS: Lung tian: The lungs are well aerated and clear. No significant lung nodules or masses are identified. No interstitial abnormalities are identified. There is no evidence of bronchiectasis. There is a small right pleural effusion. No pneumothorax. Heart and Mediastinum: The heart and great vessels are normal for age. No mediastinal or hilar lymphadenopathy is identified. Airways: The trachea and central bronchi are widely patent and clear without filling defects identified. Neck structures: There is a thyroid goiter. Hepatobiliary: The liver is normal. There is cholelithiasis. The intrahepatic and extrahepatic bile ducts are normal. There is calcification of the pancreas as could be seen with chronic pancreatitis.There is stranding and fluid about the tail of the pancreas, which appears secondary to ruptured left renal cyst. The spleen is normal. Genitourinary: Right adrenal gland is unremarkable. There is a 1.4 cm left adrenal nodule, unchanged. The kidneys are atrophic bilaterally. There is a 3.3 cm left renal cyst which appears acutely hemorrhagic with rupture. No active bleeding seen. No renal masses or stones. No hydronephrosis. The pelvic organs and bladder are unremarkable. Bowel and peritoneal cavity: No evidence of appendicitis. The transverse colon appears somewhat collapsed and featureless. There is diverticulosis. Elsewhere, no bowel related obstruction or perforation is detected. No ascites orperitoneal fluid collections are identified. There is no evidence of free intraperitoneal air. No abdominal wall hernia is identified. Retroperitoneum: There is no evidence of retroperitoneal or pelvic lymphadenopathy. The retroperitoneal vascular structures appear normal. Bones and soft tissues: There are subacute fractures of the right posterior 9-11th ribs. There is hardware in the right hip. There is a wedge deformity of T8. This appears to be chronic. There is gynecomastia. 1. No convincing evidence of acute traumatic injury. 2. Subacute fractures of the right posterior 9-11th ribs with small effusion. 3. Left renal cyst which previously appeared simple, now hemorrhagic. Rupture is suspected (perinephric fluid and fluid about tail of the pancreas). No active bleeding.4. Somewhat collapsed and featureless transverse colon could reflect colitis. 5. Other findings as above. CT Head Anticoag Without Contrast Result Date: 01/27/2025 EXAM DESCRIPTION: CT HEAD ANTICOAG WO CONTRAST; CT CERVICAL SPINE WO CONTRAST CLINICAL HISTORY: 65-year-old man brought in by ambulance from home with failure to thrive. Depression. Frequent falls. This patient takes blood thinners. Patient has not been to dialysis. ETOH. Sleep issues. Bruising on legs and left side of the chest. Last dialysis on Sunday of last week. COMPARISON: Head CT from 12/23/2024. CT of the cervical spine from 12/02/2024. TECHNIQUE: Contiguous 5 mm axial images were obtained through the head and cervical spine. Subsequently sagittal and coronal reconstructions were performed. FINDINGS: Head CT: The ventricles, sulci and cisterns remain prominent, consistent with gener alized tissue loss, more than expected for the patient's age. There is no mass, mass effect or hemorrhage. No evidence of an acute territorial infarct. No extra-axial fluid collection. There is persistent patchy low attenuation in the periventricular and subcortical white matter which is nonspecific but probably reflects the sequela of small-vessel ischemic disease in a patient of this age. The visualized paranasal sinuses and mastoid air cells are well-aerated. No air- fluid levels to suggest acute sinusitis. The visualized globes appear intact. There is no evidence of an acute displaced skull fracture. CT of the cervical spine: These images are slightly degraded by patient motion. The bones are well mineralized. The normal vertebral body heights are maintained. No prevertebral soft tissue swelling. No acute displaced fracture. There is reversal of the normal cervical lordosis, as before. There is multilevel degenerative disc disease with endplate osteophytes and loss of the normal intervertebral disc spaces diffusely throughout the cervical spine but most pronounced at C2 through C6. There is bilateral facet joint hypertrophy with narrowing of the neural foramina at multiple levels. The dens appears intact. The lateral masses of C1 are normally located. There is a partially visualized central venous catheter in the right upper chest. There is atherosclerosis at the left carotid bifurcation. The thyroid gland is not well visualized. The lung apices are well-aerated. There are multiple small cervical lymph nodes in the anterior and posterior cervical triangles. Head CT: No acute intracranial process. Generalized tissue loss, more than expected for the patient's age. Small-vessel ischemic disease, as before. CT of the cervical spine: Limited study secondary to patient motion. No acute displaced fracture. Reversal of the normal cervical lordosis, as before,likely related to degenerative disc disease. Multilevel degenerative disc disease. Facet joint hypertrophy and narrowing of the neural foramina at multiple levels. Partially visualized right-sided central venous catheter. CT Cervical Spine WO IV Contrast Result Date: 01/27/2025 EXAM DESCRIPTION: CT HEAD ANTICOAG WO CONTRAST; CT CERVICAL SPINE WO CONTRAST CLINICAL HISTORY: 65-year-old man brought in by ambulance from home with failure to thrive. Depression. Frequent falls. This patient takes blood thinners. Patient has not been to dialysis. ETOH. Sleep issues. Bruising on legs and left side of the chest. Last dialysis on Sunday of last week. COMPARISON: Head CT from 12/23/2024. CT of the cervical spine from 12/02/2024. TECHNIQUE: Contiguous 5 mm axial images were obtained through the head and cervical spine. Subsequently sagittal and coronal reconstructions were performed. FINDINGS: Head CT: The ventricles, sulci and cisterns remain prominent, consistent with gener alized tissue loss, more than expected for the patient's age. There is no mass, mass effect or hemorrhage. No evidence of an acute territorial infarct. No extra-axial fluid collection. There is persistent patchy low attenuation in the periventricular and subcortical white matter which is nonspecific but probably reflects the sequela of small-vessel ischemic disease in a patient of this age. The visualized paranasal sinuses and mastoid air cells are well-aerated. No air- fluid levels to suggest acute sinusitis. The visualized globes appear intact. There is no evidence of an acute displaced skull fracture. CT of the cervical spine: These images are slightly degraded by patient motion. The bones are well mineralized. The normal vertebral body heights are maintained. No prevertebral soft tissue swelling. No acute displaced fracture. There is reversal of the normal cervical lordosis, as before. There is multilevel degenerative disc disease with endplate osteophytes and loss of the normal intervertebral disc spaces diffusely throughout the cervical spine but most pronounced at C2 through C6. There is bilateral facet joint hypertrophy with narrowing of the neural foramina at multiple levels. The dens appears intact. The lateral masses of C1 are normally located. There is a partially visualized central venous catheter in the right upper chest. There is atherosclerosis at the left carotid bifurcation. The thyroid gland is not well visualized. The lung apices are well-aerated. There are multiple small cervical lymph nodes in the anterior and posterior cervical triangles. Head CT: No acute intracranial process. Generalized tissue loss, more than expected for the patient's age. Small-vessel ischemic disease, as before. CT of the cervical spine: Limited study secondary to patient motion. No acute displaced fracture. Reversal of the normal cervical lordosis, as before,likely related to degenerative disc disease. Multilevel degenerative disc disease. Facet joint hypertrophy and narrowing of the neural foramina at multiple levels. Partially visualized right-sided central venous catheter. ECG 12 lead Result Date: 01/27/2025 Normal sinus rhythm Left axis deviation Right bundle branch block Abnormal ECG ED Course as of 01/27/25 1521 Tue Jan 27, 2025 1323 ECG: NSR at 99, MA Interval 202, QRS 148, left axis deviation, right bundle branch block, QTc normal, no evidence of acute ST or T-wave changes. No significant change from prior EKG dated 12/26/2024 except for at that time QRS was 142 and MA was 186. ECG was interpreted by myself at the time of care. [KB] 1336 Hemoglobin(!): 8.9 CBC shows new anemia compared to a month ago, nonspecific, likely due to chronic renal failure. BMP consistent with noncompliance with dialysis. Potassium elevated but ECG reassuring. Will check VBG and discuss with nephrology. Will give dose of sodium bicarb, insulin, glucose, and Lokelma. Magnesium normal. [KB] 1338 Potassium(!): 6.0 [KB] 1339 Troponin T HS(!): 112 Troponin elevated however patient does not have signs and symptoms suggestive of ACS. This likely due to renal failure. Will check 3-hour troponin. [KB] 1340 Serum tox negative, acetaminophen level barely detectable, check LFTs and coags. [KB] 1358 Nephrology being paged again. [KB] [address] Stanton, he agrees with current management. He also would like patient to receive calcium gluconate. Agrees admission and he will arrange for dialysis later today. [KB] [address] without acute findings. [KB] 1412 PROCEDURE NOTE: Ultrasound-guided peripheral IV performed by Myself Patient has poor IV access. Under ultrasound guidance, a 20-gauge 2.5 inch IV catheter placed in the left proximal volar forearm on 1st attempt without difficulty. [KB] 1505 CT chest, abdomen, pelvis with contrast shows no evidence of acute injury however subacute fracture of the right posterior 9th through 11th rib fractures with small effusion noted. Left renal cyst now appears hemorrhagic suggesting rupture with perinephric fluid around the tail of the pancreas. No evidence of active bleeding. Anemia likely multifactorial including multiple ecchymoses as well as right renal cyst hemorrhage. No acute intervention indicated. Emergent transfusion not indicated. [KB] 1507 LFTs show transaminitis consistent with alcohol use. Viral swab negative. Repeat troponin closer to baseline, at this time history and ECG and troponin is not suggestive of ACS. [KB] 1507 VBG reassuring [KB] 1519 Left knee XR interpreted by myself: Large effusion. No fracture seen [KB] ED Course User Index [KB] Leticia Gimlore MD IMPRESSION: Clinical Impression 1. Acute hyperkalemia 2. History of noncompliance with medical treatment 3. Depression, unspecified depression type 4. Alcohol use disorder 5. Multiple falls 6. Contusion of left knee, initial encounter 7. Closed fracture of multiple ribs of right side, initial encounter 8. Pleural effusion, right 9. Renal cyst, [place], hemorrhage 10. Acute blood loss anemia 11. Transaminitis 12. Effusion of left knee PLAN: Admit Hospital follow-up radiology interpretation of knee x-ray, repeat BMP after treatment for hyperkalemia as well as urine will be signed as patient provides. Critical Care Performed by: LETICIA GILMORE Authorized by: LETICIA GILMORE Critical Care time with patient excluding separately billable procedures is 90 minutes. Critical care was necessary to treat or prevent imminent or life-threatening deterioration due to acute hyperglycemia secondary to noncompliance dialysis as well as polytrauma on clopidogrel and aspirin. Critical care was time spent personally by me on the following activities: examination of patient, obtaining history from patient or surrogate, ordering and performing treatments and interventions, ordering and review of laboratory and radiographic studies, pulse oximetry, review of chart, evaluation of patient's response to treatment, and discussions with consultants. Note to patient: The century cures act makes medical notes like these available to patients inthe interest of transparency. However, be advised this is a medical document. It is intended primarily as [id number] communication. It is written in medical language and may contain abbreviations or verbiage that are unfamiliar. It may appear blunt or direct. This is because medical documents areintended to carry relevant information, facts as evident, and the clinical opinion of the practitioner only as of the time of writing. Leticia Gilmore MD 01/27/25 1508 [1] Past Medical History: Diagnosis Date Alcohol dependence ([place] [facility] Alcoholic fatty liver 11/22/2020 Anemia of chronic disease 02/22/2022 Anxiety and depression 11/22/2020 Bacteremia 10/17/2022 Kruse's esophagus without dysplasia 12/24/2019 BPH with urinary obstruction 10/10/2018 Chronic obstructive pulmonary disease, unspecified ([facility]) 11/22/2020 CKD (chronic kidney disease) ESRD (end stage renal disease) ([facility]) 11/02/2022 Gastro-esophageal reflux disease without esophagitis 11/22/2020 HCAP (healthcare-associated pneumonia) 06/18/2022 Hyperlipidemia Hypertension 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 Polysubstance abuse ([facility]) 01/28/2021 Suicidal ideation 02/08/2023 Syncope 12/20/2022 [2] Patient Active Problem List Diagnosis Alcohol withdrawal ([facility]) Essential hypertension Alcohol withdrawal syndrome without complication ([facility]) Alcohol use disorder Alcoholic intoxication without complication Pneumonia Alcoholic fatty liver Anxiety and depression B12 deficiency BPH with urinary obstruction Anemia of chronic disease Chronic hepatitis, unspecified ([facility]) Chronic obstructive pulmonary disease, unspecified ([facility]) Noncompliance with renal dialysis ([facility]) ESRD (end stage renal disease) on dialysis ([facility]) Gastro-esophageal reflux disease without esophagitis Hyperlipidemia, unspecified Kidney lesion, tonto apache, left MSSA bacteremia Personal history of nicotine dependence Polysubstance abuse ([facility]) Secondary hyperparathyroidism of renal origin Kruse's esophagus without dysplasia ESRD (end stage renal disease) ([facility]) Chest pain Hypotension Acute hyperkalemia Vomiting and diarrhea Cocaine use disorder ([facility]) Elevated alkaline phosphatase level Lactic acid acidosis Altered mental status, unspecified Generalized muscle weakness Homeless Metabolic encephalopathy Other abnormalities of gait and mobility Other staphylococcus as the cause of diseases classified elsewhere Alcohol dependence with withdrawal, unspecified ([facility]) Alcohol use disorder, severe, in early remission ([facility]) Other psychoactive substance abuse, uncomplicated ([facility]) Bacteremia Dependence on renal dialysis Patient's noncompliance with renal dialysis for other reason Suicidal ideation Depression Major depressive disorder, recurrent severe without psychotic features ([facility]) Alcohol use disorder GI bleed Acute blood loss anemia Chronic anemia Acute on chronic anemia Chest pain in adult Moderate episode of recurrent major depressive disorder ([facility]) ESRD (end stage renal disease) ([facility]) Pneumonia due to infectious agent End stage renal disease ([facility]) Dyspnea Dyspnea on exertion Weakness Gastroenteritis ESRD needing dialysis ([facility]) Unwitnessed fall SIRS (systemic inflammatory response syndrome) ([facility]) [3] Past Surgical History: Procedure Laterality Date INTERVENTIONAL RADIOLOGY PROCEDURE N/A 08/06/2023 Surgeon: PRESTON Boateng; Location: [facility]; Service: Vascular and Interventional Radiology; Laterality: N/A; arm surgery Left [4] No Known Allergies [5] Social History Socioeconomic History Marital status: Single Number of children: 0 Occupational History Occupation: Retired from [employer] Tobacco Use Smoking status: Every Day Current packs/day: 1.00 Types: Cigarettes Substance and Sexual Activity Alcohol use: Yes Alcohol/week: 28.0 - 63.0 standard drinks of alcohol Types: 28 - 63 Standard drinks or equivalent per week Comment: 1 1/2 pints daily Drug use: Yes Types: Cocaine, Crack cocaine Comment: occasional [6] Family History Problem Relation Name Age of Onset Diabetes Mother d. 88 Thyroid disease Mother Depression Father Leticia Gilmore MD 01/27/25 1521 documented in this encounter Miscellaneous Notes * Plan of Care - Starr Meyer RN - 01/30/2025 3:29 PM EST Called patient to review discharge instructions, no answer. Left message for patient stating that he has prescriptions that were sent to his pharmacy, [facility], and that he should call PCP for follow up. Also left callback number in case he has any questions. * Plan of Care - Starr Meyer RN - 01/30/2025 3:11 PM EST Patient was attempting to leave on foot, slightly unsteady. Said he booked himself a taxi and it iswaiting for him. Brought wheelchair to assist patient to taxi. When asked if he had his discharge paperwork, he said no, and that he does not wish to get it because his taxi is here. He was assisted to taxi. * Plan of Care - Serenity Osorio PTA - 01/30/2025 1:57 PM EST PHYSICAL THERAPY PROGRESS NOTE Patient Name: Sushant Christianson Patient Today's Date: 01/30/2025 PT Received on Date: 01/30/25 CLINICAL ASSESSMENT AND RECOMMENDATIONS Diagnosis Hyperkalemia [E87.5] Acute hyperkalemia [E87.5] Acute blood loss anemia [D62] Transaminitis [R74.01] History of noncompliance with medical treatment [Z91.199] Pleural effusion, right [J90] Renal cyst, tonto apache, hemorrhage [N28.89, N28.1] Effusion of left knee [M25.462] Multiple falls [R29.6] Contusion of left knee, initial encounter [S80.02XA] Closed fracture of multiple ribs of right side, initial encounter [S22.41XA] Alcohol use disorder [F10.90] Depression, unspecified depression type [F32.A] Clinical Narrative Sushant Christianson continues to make steady progress with physical therapy goals. Patient continues to present with functional limitations including Decreased strength/Muscular endurance, Decreased safety awareness, Knowledge deficit, Altered cognition, Altered balance, Decreased ADL status, Decreased aerobic capacity. Recommend continued acute care physical therapy services. Recommended discharge disposition is Short-term Rehab. Activity Recommendations Daily mobility per -HLM mobility goals established, Out of bed to chair or commode only, Encourage out of bed activity as tolerated [facility] Highest Level of Mobility (JH-HLM) -HLM Baseline Prior to Admission: 8 JH-HLM Daily Goal (Calculated): Stand (1 or more minutes) JH-HLM Achieved Today (Document end of shift): 7 Current Precautions Fall risk Discharge Recommendations PT Discharge Recommendations: Short-term Rehab Equipment Recommendations: Rolling walker F/U with PT Clinical Data Management Director: Yes Physical Therapy Plan of Care Balance training, Bed mobility, Continuous pulse oximetery, Exercise prescription, Gait training/stairs, Neuromuscular facilitation, Patient / Family education, Therapeutic Activities/Functional Training, Therapeutic Exercise, Transfer training Today's Intervention Patient received seated at edge of bed, agreeable to participate in PT session. Patient completed transfers, and approximately 40 feet of ambulation as detailed below. Patient demonstrated unsteady gait without overt loss of balance and increased fatigue after walking. Presently, patient is below functional baseline and will continue to benefit from skilled [facility] rehab to improve strength, balance and endurance in order to return home safely. Today's Education Learner: Patient Method: Verbal Explanation Response: Verbalized Understanding and Demonstrated Understanding Education Content: gait training, activity pacing, transfer training Patient Safety Patient left in room sitting edge of bed with call keating in reach and telephone in reach. CURRENT FUNCTIONAL STATUS Clinical Status Clinical Summary Impairments: Decreased strength/Muscular endurance, Decreased safety awareness, Knowledge deficit, Altered cognition, Altered balance, Decreased ADL status, Decreased aerobic capacity Functional Limitations: Bed mobility, Transfers, Ambulation, Stair negotiation, Safety judgement, Self Care, Deconditioned Limiting Symptoms: Fatigue Positive Prognostic Indicators: Motivated Negative Prognostic Indicators: Impaired cognition, Multiple co-morbidities Rehab Potential: Good Pain Pain Scale: 0-10 0-10 Pain Score : 0 Cognition Level of Consciousness: Alert Following Directions: Follows all directions without difficulty Patient Behaviors/Mood: Cooperative Safety Awareness: Decreased awareness of need for assistance, Decreased awareness of safety precautions, Decreased awareness of errors, Decreased awareness of deficits Insight: Impaired Problem Solving: Assistance required to identify errors made, Assistance required to generate solutions, Assistance required to implement solutions Perception Inattention/Neglect: Appears intact Initiation: Appears intact Motor Planning: Appears intact Perseveration: Not present Functional Mobility Bed Mobility Rolling: Unable to assess Supine to Sit: Unable to assess Sit to Supine: Unable to assess Transfers Sit to Stand: Contact guard Stand to Sit: Contact guard Transfer aid: Walker Transfer Barriers: Gross motor strength, Gross motor coordination, Balance Ambulation Ambulation Assistance: Contact guard Ambulation Distance (Feet): 50 Feet Assistive Device: Rolling walker Gait Deviations: Decreased ant, Increased path deviation, Decreased step height, Decreased steplength Balance Sitting - Static: Contact guard Sitting - Dynamic: Contact guard Standing - Static: Contact guard, With assistive device Standing - Dynamic: Contact guard, With assistive device Additional Functional Tests [facility] Mobility Score: 17 Physical Therapy Treatment Goals Problem: Impaired Functional Mobility Goal: Demo safe stair negotiation with least restrictive device Outcome: Not Progressing Problem: Impaired Functional Mobility Goal: Demonstrate safe bed mobility with least restrictive device Outcome: Progressing Flowsheets (Taken 01/30/2025 1330) Rolling: Unable to assess Supine to Sit: Unable to assess Sit to Supine: Unable to assess Goal: Demonstrate safe transfers utilizing LRD Outcome: Progressing Flowsheets (Taken 01/30/2025 1330) Sit to Stand: Contact guard Stand to Sit: Contact guard Transfer aid: Walker Transfer Barriers: Gross motor strength Gross motor coordination Balance Goal: Demonstrate safe ambulation with least restrictive device Outcome: Progressing Flowsheets (Taken 01/30/2025 1330) Assistive Device: Rolling walker Ambulation Assistance: Contact guard Ambulation Distance (Feet): 50 Feet Gait Deviations: Decreased ant Increased path deviation Decreased step height Decreased step length Problem: Impaired Safety Awareness Goal: Pt will demo appropriate safety awareness/precautions Description: Patient will demonstrate appropriate safety awareness by demonstrating use of the callbell and adhering to recommended precautions/restrictions. Outcome: Progressing Flowsheets (Taken 01/30/2025 1330) Safety Awareness: Decreased awareness of need for assistance Decreased awareness of safety precautions Decreased awareness of errors Decreased awareness of deficits Problem: Impaired Activity Tolerance Goal: Sufficient aerobic capacity to complete baseline tasks Description: Patient will demonstrate sufficient aerobic capacity to complete baseline level functional tasks. Outcome: Progressing Physical Therapy Charges Intervention Time (mins): 20 $Gait/Mobility: 8-22 mins Sereinty Osorio PTA [place] License Number: [id number] [facility] 01/30/2025 We are fully invested with our patients being active participants during their care and rehabilitation treatment. To that end, we try to limit any medical abbreviations and jargon while maintaining the clinical integrity in our documentation. If you have questions about any of the information contained in your rehabilitation notes, we encourage you to discuss this with your clinician. * Plan of Care - Shayla Hill RN - 01/30/2025 1:23 PM EST Problem: Pain - Adult Goal: Verbalizes/displays adequate comfort level or baseline comfort level Outcome: Adequate for Discharge Problem: Safety-Adult Goal: Free from fall injury Outcome: Adequate for Discharge Flowsheets (Taken 01/30/2025 1000) Fall History Interventions: All fall history interventions completed Patient Care Equipment Interventions: All patient care equipment interventions completed Mobility Interventions: All mobility interventions completed Problem: Discharge Planning Goal: Discharge to home or other facility with appropriate resources Outcome: Adequate for Discharge Problem: Chronic Conditions and Co-morbidities Goal: Patient's chronic conditions and co-morbidity symptoms are monitored and maintained or improved Outcome: Adequate for Discharge Problem: Mobility Goal: Improve mobility to highest level of function Outcome: Adequate for Discharge Problem: Knowledge Deficit Goal: Patient/family/caregiver demonstrates understanding of disease process, treatment plan, medications, and discharge instructions Outcome: Adequate for Discharge * Plan of Care - Serenity Osorio PTA - 01/30/2025 11:27 AM EST Physical Therapy Deferral Note Attempted Physical Therapy visit with Suhsant Christianson however he is not able to complete skilled services at this time. Reason for Deferral: Patient Refusal Other Comments: Patient approached while in bed, refused due to fatigue. Will follow up appropriate. Serenity Osorio PTA [place] License Number: [id number] [facility] 01/30/2025 We are fully invested with our patients being active participants during their care and rehabilitation treatment. To that end, we try to limit any medical abbreviations and jargon while maintaining the clinical integrity in our documentation. If you have questions about any of the information contained in your rehabilitation notes, we encourage you to discuss this with your clinician. * Plan of Care - Gloria Duffy RN - 01/29/2025 4:06 PM EST [id number] Pt Aox4. Scoring 3-4 on CIWA. OOB with RW and supervision. Pt anxious, atarax given. Plan of care ongoing. Problem: Pain - Adult Goal: Verbalizes/displays adequate comfort level or baseline comfort level Outcome: Progressing Problem: Safety-Adult Goal: Free from fall injury Outcome: Progressing Problem: Discharge Planning Goal: Discharge to home or other facility with appropriate resources Outcome: Progressing Problem: Altered Nutrient Intake Goal: Nutrient intake appropriate for improving, restoring or maintaining nutritional needs Outcome: Progressing Problem: Chronic Conditions and Co-morbidities Goal: Patient's chronic conditions and co-morbidity symptoms are monitored and maintained or improved Outcome: Progressing Problem: Mobility Goal: Improve mobility to highest level of function Outcome: Progressing Problem: Knowledge Deficit Goal: Patient/family/caregiver demonstrates understanding of disease process, treatment plan, medications, and discharge instructions Outcome: Progressing * Plan of Care - Celia Chambers - 01/29/2025 2:57 PM EST ADDICTION CONSULT SERVICES Patient: Sushant Christianson : [id number] Admit Date: 01/27/2025 Date of Consult: 01/29/2025 Reason for Consult: AUD Pt shares he just moved and had been going to an AA meeting near the [facility]. Pt reports it was a meeting he went to regularly and needs to get back. Pt shares he has supports and he will reach out [facility]. RC showed pt the AA zoom meetings and gave pt RC's contact info along with resource folder. Celia Chambers, LADCII, CARC, RCPF Addiction Consult Services C:[phone] T: [phone] [email or web address] * Plan of Care - Shayla Hill RN - 01/29/2025 9:00 AM EST Problem: Pain - Adult Goal: Verbalizes/displays adequate comfort level or baseline comfort level Outcome: Progressing Problem: Safety-Adult Goal: Free from fall injury Outcome: Progressing Flowsheets (Taken 01/29/2025 0900) Elimination, Bowel, Urine Fall Interventions: All elimination risk interventions completed Fall History Interventions: All fall history interventions completed Medications Interventions: All medications interventions completed Patient Care Equipment Interventions: All patient care equipment interventions completed Mobility Interventions: All mobility interventions completed Cognition Interventions: All cognition interventions completed Problem: Discharge Planning Goal: Discharge to home or other facility with appropriate resources Outcome: Progressing Problem: Altered Nutrient Intake Goal: Nutrient intake appropriate for improving, restoring or maintaining nutritional needs Outcome: Progressing Problem: Chronic Conditions and Co-morbidities Goal: Patient's chronic conditions and co-morbidity symptoms are monitored and maintained or improved Outcome: Progressing Problem: Mobility Goal: Improve mobility to highest level of function Outcome: Progressing Problem: Knowledge Deficit Goal: Patient/family/caregiver demonstrates understanding of disease process, treatment plan, medications, and discharge instructions Outcome: Progressing * Plan of Care - Lucrecia Frankel RN - 01/28/2025 6:20 PM EST Assumed care at 0700 - alert and oriented x4, forgetful. Denies pain or discomfort. SBP elevated 170s - medicated with x1 dose of PO amlodipine. HR up to 120s - EKG done - asymptomatic - started on PO metoprolol. Max assist oob to commode - tolerated poorly. PT consult in place. CIWA q4h - medicating with PRN ativan. Bed alarmed for safety. Safety checks maintained. * Plan of Care - Laz Dubose DPT - 01/28/2025 3:05 PM EST PHYSICAL THERAPY INITIAL EVALUATION Patient Name: Sushant Christianson Patient Today's Date: 01/28/2025 PT Received on Date: 01/28/25 CLINICAL ASSESSMENT AND RECOMMENDATIONS Diagnosis Hyperkalemia [E87.5] Acute hyperkalemia [E87.5] Acute blood loss anemia [D62] Transaminitis [R74.01] History of noncompliance with medical treatment [Z91.199] Pleural effusion, right [J90] Renal cyst, tonto apache, hemorrhage [N28.89, N28.1] Effusion of left knee [M25.462] Multiple falls [R29.6] Contusion of left knee, initial encounter [S80.02XA] Closed fracture of multiple ribs of right side, initial encounter [S22.41XA] Alcohol use disorder [F10.90] Depression, unspecified depression type [F32.A] Clinical Assessment Sushant Christianson is a 65 y.o. male admitted from home diagnosed with AUD, multiple falls, transaminitis and weakness. Patient was referred to physical therapy for functional mobility training, balance/fall prevention training, and discharge planning. Patient presents with performance deficits including Decreased strength/Muscular endurance, Decreased safety awareness, Knowledge deficit, Altered cognition, Altered balance, Decreased ADL status, Decreased aerobic capacity. Recommend continued [facility] services. Recommended discharge disposition is Short-term Rehab. Patient Activity Recommendations Daily mobility per -[facility] mobility goals established, Out of bed to chair or commode only, Encourage out of bed activity as tolerated [facility] Highest Level of Mobility (-HLM) -[facility] Baseline Prior to Admission: 8 JH-M Daily Goal (Calculated): Move to chair/commode -HLM Achieved Today (Document end of shift): 5 Current Precautions Fall risk Discharge Recommendations PT Discharge Recommendations: Short-term Rehab Equipment Recommendations: Rolling walker F/U with PT Clinical Data Management Director: Yes Physical Therapy Plan of Care Balance training, Bed mobility, Continuous pulse oximetery, Exercise prescription, Gait training/stairs, Neuromuscular facilitation, Patient / Family education, Therapeutic Activities/Functional Training, Therapeutic Exercise, Transfer training Today's Intervention PT consult received and appreciated. Pt presents to initial PT assessment with impairments including generalized weakness/deconditioning, impaired activity tolerance, impaired balance, and impaired cognition limiting his ability to ambulate, perform transfers and perform ADLs. Able to participate in bed mobility, sit to stands and lateral stepping overall tolerated fairly. Pt currently requiring increased assist and is functioning below baseline most limited by generalized weakness/deconditioning, impaired activity tolerance and impaired balance. Rec pt d/c to short term rehab when medically appropriate to maximize return to PLOF and safety. PT will continue to follow and progress while in house. Today's Education Learner: Patient Method: Verbal Explanation and Skill Demonstration Response: Verbalized Understanding, Demonstrated Understanding, and Needs Reinforcement Education Content: POC, role of PT, safe mobility techniques, OOB importance, pacing Patient Safety Patient left in room lying in bed with call keating in reach, telephone in reach, bed alarm on, and RNnotified. PATIENT HISTORY Problem List[1] Past Medical History[2] Past Surgical History[3] Fall History Number of Falls (last 12 months): (unclear amount - pt with vague answers) Cause of Fall(s): Mechanical including slips, trip & other environmental causes, Intoxication Fall History Reported By: Self Home Environment Type of Home: Apartment Home Layout: One level, No stairs to enter Bathroom Shower/Tub: Walk-in shower Bathroom Toilet: Standard Bathroom Equipment: Grab bars in shower Bathroom Accessibility: Accessible Home Equipment: Rolling walker Prior Functional History Vocational Status: Retired Lives With: Alone Current Services: Meals on Wheels Mobility/ADL Assistance: Needs assistance Mobility: Ambulates w/equipment Homemaking Assistance: Needs assistance Transportation: Utilizes ride-sharing (?) CURRENT FUNCTIONAL STATUS Clinical Assessment Clinical Summary Impairments: Decreased strength/Muscular endurance, Decreased safety awareness, Knowledge deficit, Altered cognition, Altered balance, Decreased ADL status, Decreased aerobic capacity Functional Limitations: Bed mobility, Transfers, Ambulation, Stair negotiation, Safety judgement, Self Care, Deconditioned Limiting Symptoms: Fatigue Positive Prognostic Indicators: Motivated Negative Prognostic Indicators: Impaired cognition, Multiple co-morbidities Rehab Potential: Good Pain Pain Scale: 0-10 0-10 Pain Score : 0 Vital Signs Patient Position Blood Pressure Heart Rate SpO2 O2 Device/Flow Sitting 130/83 (!) 124 (max noted during activity) 98 % None (Room air)/ Functional Limitations and Limiting Symptoms Bed mobility, Transfers, Ambulation, Stair negotiation, Safety judgement, Self Care, Deconditioned Fatigue Cognition Level of Consciousness: Alert Orientation Level: Oriented X4 Following Directions: Follows all directions without difficulty Memory: Decreased recall of recent events, Decreased immediate recall, 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 exterminator memory, Decreased short term memory Attention to Tasks: Distracted Safety Awareness: Decreased awareness of need for assistance, Decreased awareness of safety precautions, Decreased awareness of errors, Decreased awareness of deficits Insight: Impaired Problem Solving: Assistance required to identify errors made, Assistance required to generate solutions, Assistance required to implement solutions Perception Inattention/Neglect: Appears intact Initiation: Appears intact Motor Planning: Appears intact Perseveration: Not present Functional Mobility Bed Mobility Supine to Sit: Moderate assistance Adaptive Equipment: HOB elevated, Side rails Sit to Supine: Minimal assistance Adaptive Equipment: HOB elevated, Side rails Transfers Sit to Stand: Moderate assistance (able to take 2-3 R side steps towards EOB, very unsteady - tremulous and retropulsive, poor foot clearance and step length) Stand to Sit: Moderate assistance Transfer Barriers: Gross motor strength, Gross motor coordination, Balance (tremulous) Ambulation Stairs Balance Sitting - Static: Contact guard Sitting - Dynamic: Contact guard Standing - Static: Minimal assistance, With bilateral upper extremity support Standing - Dynamic: Moderate assistance, With bilateral upper extremity support Upper Extremity Assessment Right Upper Extremity RUE AROM: Within Functional Limits RUE Overall Strength: Within Functional Limits Left Upper Extremity LUE AROM: Within Functional Limits LUE Overall Strength: Within Functional Limits Lower Extremity Assessment Right Lower Extremity RLE AROM: Within Functional Limits RLE Strength : Deficits (generalized deconditioning, grossly >3/5 throughout) RLE Sensation R Light Touch: Intact Left Lower Extremity LLE AROM: Within Functional Limits LLE Strength : Deficits (generalized deconditioning, grossly >3/5 throughout) LLE Sensation L Light Touch: Intact Additional Functional Tests AM-PAC Mobility Score: 12 Physical Therapy Treatment Goals Problem: Impaired Functional Mobility Goal: Demonstrate safe bed mobility with least restrictive device Outcome: Progressing Flowsheets (Taken 01/28/2025 1505) Supine to Sit: Moderate assistance Sit to Supine: Minimal assistance Adaptive Equipment: HOB elevated Side rails Adaptive Equipment: HOB elevated Side rails Goal: Demonstrate safe transfers utilizing LRD Outcome: Progressing Flowsheets (Taken 01/28/2025 1505) Sit to Stand: (able to take 2-3 R side steps towards EOB, very unsteady - tremulous and retropulsive, poor foot clearance and step length) Moderate assistance Stand to Sit: Moderate assistance Transfer Barriers: (tremulous) Gross motor strength Gross motor coordination Balance Goal: Demonstrate safe ambulation with least restrictive device Outcome: Progressing Goal: Demo safe stair negotiation with least restrictive device Outcome: Progressing Problem: Impaired Safety Awareness Goal: Pt will demo appropriate safety awareness/precautions Description: Patient will demonstrate appropriate safety awareness by demonstrating use of the callbell and adhering to recommended precautions/restrictions. Outcome: Progressing Flowsheets (Taken 01/28/2025 1505) Safety Awareness: Decreased awareness of need for assistance Decreased awareness of safety precautions Decreased awareness of errors Decreased awareness of deficits Problem: Impaired Activity Tolerance Goal: Sufficient aerobic capacity to complete baseline tasks Description: Patient will demonstrate sufficient aerobic capacity to complete baseline level functional tasks. Outcome: Progressing Evaluation Level of Complexity Personal factors and/or comorbidities impacting the plan of care include CKD, HTN, hx of substance abuse, COPD and lives alone. The body systems examination consisted of 3+ elements related to body structures and functions. Activity limitations and/or participation restrictions are summarized aboveand documented below. The presentation at this time appears to be Evolving supporting the current clinical decision making of moderate complexity. Due to the above information this patient's physical therapy evaluation meets the standards for billing at a moderate complexity level. Physical Therapy Charges Total Time (min): 25 Evaluation Time (mins): 25 $PT Eval Mod Complex : 1 Procedure Intervention Time (mins): 0 Laz Dubose DPT Physical Therapist [place] License Number: [id number] Rehabilitation and Sports Medicine 01/28/2025 We are fully invested with our patients being active participants during their care and rehabilitation treatment. To that end, we try to limit any medical abbreviations and jargon while maintaining the clinical integrity in our documentation. If you have questions about any of the information contained in your rehabilitation notes, we encourage you to discuss this with your clinician. [1] Patient Active Problem List Diagnosis Alcohol withdrawal ([facility]) Essential hypertension Alcohol withdrawal syndrome without complication ([facility]) Alcohol use disorder Alcoholic intoxication without complication Pneumonia Alcoholic fatty liver Anxiety and depression B12 deficiency BPH with urinary obstruction Anemia of chronic disease Chronic hepatitis, unspecified ([facility]) Chronic obstructive pulmonary disease, unspecified ([facility]) Noncompliance with renal dialysis ([facility]) ESRD (end stage renal disease) on dialysis ([facility]) Gastro-esophageal reflux disease without esophagitis Hyperlipidemia, unspecified Kidney lesion, t[place] apache, left MSSA bacteremia Personal history of nicotine dependence Polysubstance abuse ([facility]) Secondary hyperparathyroidism of renal origin Kruse's esophagus without dysplasia ESRD (end stage renal disease) ([facility]) Chest pain Hypotension Acute hyperkalemia Vomiting and diarrhea Cocaine use disorder ([facility]) Elevated alkaline phosphatase level Lactic acid acidosis Altered mental status, unspecified Generalized muscle weakness Homeless Metabolic encephalopathy Other abnormalities of gait and mobility Other staphylococcus as the cause of diseases classified elsewhere Alcohol dependence with withdrawal, unspecified ([facility]) Alcohol use disorder, severe, in early remission ([facility]) Other psychoactive substance abuse, uncomplicated ([facility]) Bacteremia Dependence on renal dialysis Patient's noncompliance with renal dialysis for other reason Suicidal ideation Depression Major depressive disorder, recurrent severe without psychotic features ([facility]) Alcohol use disorder GI bleed Acute blood loss anemia Chronic anemia Acute on chronic anemia Chest pain in adult Moderate episode of recurrent major depressive disorder ([facility]) ESRD (end stage renal disease) ([facility]) Pneumonia due to infectious agent End stage renal disease ([facility]) Dyspnea Dyspnea on exertion Weakness Gastroenteritis ESRD needing dialysis ([facility]) Unwitnessed fall SIRS (systemic inflammatory response syndrome) ([facility]) Hyperkalemia [2] Past Medical History: Diagnosis Date Alcohol dependence ([facility]) Alcoholic fatty liver 11/22/2020 Anemia of chronic disease 02/22/2022 Anxiety and depression 11/22/2020 Bacteremia 10/17/2022 Kruse's esophagus without dysplasia 12/24/2019 BPH with urinary obstruction 10/10/2018 Chronic obstructive pulmonary disease, unspecified ([facility]) 11/22/2020 CKD (chronic kidney disease) ESRD (end stage renal disease) ([facility]) 11/02/2022 Gastro-esophageal reflux disease without esophagitis 11/22/2020 HCAP (healthcare-associated pneumonia) 06/18/2022 Hyperlipidemia Hypertension 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 Polysubstance abuse ([facility]) 01/28/2021 Suicidal ideation 02/08/2023 Syncope 12/20/2022 [3] Past Surgical History: Procedure Laterality Date INTERVENTIONAL RADIOLOGY PROCEDURE N/A 08/06/2023 Surgeon: PRESTON Boateng; Location: [facility]; Service: Vascular and Interventional Radiology; Laterality: N/A; arm surgery Left * IV Therapy Notes - Clare Bourgeois RN - 01/27/2025 1:08 PM EST HD cath dressing not intact and totally exposed. Dressing changed as per protocol. Instructed primary RN to reach out to HD nurse oncology radiation physician. Exposure time not sure his last dialysis was Sunday. documented in this encounter Plan of Treatment Scheduled Referrals Name Type Priority Associated Diagnoses Orde r Schedule Ambulatory Referral to Home Health Outpatient Referral Routine Acute hyperkalemia Ordered: 01/30/2025 documented as of this encounter Procedures Procedure Name Priority Date/Time Associated Diagnosis Comments CBC Timed 01/30/2025 5:34 AM EST BASIC METABOLIC PANEL Timed 01/30/2025 5:34 AM EST HEMODIALYSIS INPATIENT Routine 01/29/2025 4:10 AM EST CBC Timed 01/29/2025 4:07 AM EST BASIC METABOLIC PANEL Timed 01/29/2025 4:07 AM EST ECG 12-LEAD Routine 01/28/2025 11:23 AM EST Abnormal electrocardiography ECG 12-LEAD Routine 01/28/2025 10:22 AM EST Tachycardia CBC Routine 01/28/2025 5:17 AM EST COMPREHENSIVE METABOLIC PANEL Routine 01/28/2025 5:17 AM EST CULTURE, AEROBIC, URINE STAT 01/28/2025 1:46 AM EST DRUG SCREEN, URINE STAT 01/28/2025 1: 46 AM EST URINALYSIS WITH URINE CULTURE REFLEX STAT 01/28/2025 1:46 AM EST HEMODIALYSIS INPATIENT STAT 01/27/2025 11:23 PM EST POCI GLUCOSE Routine 01/27/2025 3:59 PM EST BASIC METABOLIC PANEL STAT 01/27/2025 3:38 PM EST XR KNEE 4+ VW LEFT STAT 01/27/2025 3: 25 PM EST POCI GLUCOSE Routine 01/27/2025 2:48 PM EST BLOOD GAS, VENOUS STAT 01/27/2025 2:1 3 PM EST SARS COV2/INFLUENZA A/B AND RSV STAT 01/27/2025 2:10 PM EST TROPONIN (ALL) STAT 01/27/2025 2:07 PM EST APTT STAT 01/27/2025 2:07 PM EST PROTIME-INR STAT 01/27/2025 2:[address] CHEST ABDOMEN PELVIS TRAUMA W CONTRAST STAT 01/27/2025 2:[address] CERVICAL SPINE WO CONTRAST STAT 01/27/2025 1:[address] HEAD ANTICOAG WO CONTRAST STAT 01/27/2025 1:55 PM EST ECG 12-LEAD STAT 01/27/2025 12:57 PM EST POCI GLUCOSE Routine 01/27/2025 12:49 PM EST TROPONIN (ALL) STAT 01/27/2025 12:40 PM EST CBC AND DIFFERENTIAL STAT 01/27/2025 12:40 PM EST TOXICOLOGY SCREEN, BLOOD STAT 01/27/2025 12:40 PM EST LIGHT BLUE TOP STAT 01/27/2025 12:40 PM EST RAINBOW DRAW STAT 01/27/2025 12:40 PM EST HEPATITIS B SURFACE ANTIGEN Routine 01/27/2025 12:40 PM EST CBC AND DIFFERENTIAL STAT 01/27/2025 12:40 PM EST MAGNESIUM STAT 01/27/2025 12:40 PM EST HEPATIC FUNCTION PANEL Routine 01/27/2025 12:40 PM EST BASIC METABOLIC PANEL STAT 01/27/2025 12:40 PM EST documented in this encounter Results * (ABNORMAL) Basic Metabolic Panel (01/30/2025 5:34 AM EST) Pathologist [facility] Sodium 138 135 - 146 mmol/L 01/30/2025 8:05 AM [facility] Potassium 4.9 3.4 - 5.2 mmol/L 01/30/2025 8:05 AM [facility] Chloride 100 98 - 110 mmol/L 01/30/2025 8:05 AM [facility] Total CO2/Bicarbonat e 25 24 - 32 mmol/L 01/30/2025 8:05 AM [facility] Anion Gap 12 2 - 15 mmol/L 01/30/2025 8:05 AM [facility] BUN 45(H) 7 - 24 mg/dL 01/30/2025 8:05 AM [facility] Creatinine, Blood 7.10(H) 0.60 - 1.30 mg/dL 01/30/2025 8:05 AM [facility] Glucose, Blood 91 50 - 100 mg/dL 01/30/2025 8:05 AM [facility] Calcium 9.1 8.5 - 10.5 mg/dL 01/30/2025 8:05 AM [facility] Estimated GFR (MDRD) 8(L) >=60 mL/min/BSA 01/30/2025 8:05 AM [facility] Blood PERIPHERAL BLOOD SPECIMEN / Unknown Venipuncture / Unknown 01/30/2025 5:34 AM EST 01/30/2025 6:58 AM EST Gelacio Garcia MD LAB BLOOD ORDERABLES Ann l Result Performing Organization Address City/[facility]/ZIP Co de Phone Number [facility] [address] [place] [address] * (ABNORMAL) CBC (01/30/2025 5:34 AM EST) WBC 8.96 4.00 - 11.00 K/uL 01/30/2025 7:34 AM EST [facility] RBC 2.74(L) 4.10 - 5.60 M/uL 01/30/2025 7:34 AM EST [facility] Hemoglobin 8.0(L) 12.7 - 16.7 g/dL 01/30/2025 7:34 AM EST [facility] Hematocrit 26.1(L) 38.1 - 50.1 % 01/30/2025 7:34 AM EST [facility] MCH 29.2 23.0 - 37.0 pg 01/30/2025 7:34 AM [facility] MCHC 30.7 29.0 - 38.0 g/dL 01/30/2025 7:34 AM EST [facility] MCV 95 82 - 98 fL 01/30/2025 7:34 AM [facility] RDW 15.7(H) 11.5 - 14.5 % 01/30/2025 7:34 AM EST [facility] Platelet Count 261 150 - 450 K/uL 01/30/2025 7:34 AM EST [facility] MPV 10.6 6.0 - 14.0 fL 01/30/2025 7:34 AM EST [facility] Blood PERIPHERAL BLOOD SPECIMEN / Unknown Venipuncture / Unknown 01/30/2025 5:34 AM EST 01/30/2025 6:58 AM EST Gelacio Garcia MD LAB BLOOD ORDERABLES Ann l Result Performing Organization Address City/[facility]/ZIP Co de Phone Number [facility] [address] [place] [address] * Hemodialysis inpatient (01/29/2025 4:10 AM EST) Narrative Pinky Nichols RN - 01/29/2025 4:10 AM EST Pinky Nichols RN 01/29/2025 4:10 AM Hemodialysis Nursing Procedure Note Patient: Sushant Christianson : 1960 CSN: [id number] Treatment Summary: Pt oriented x3. HD tx initiated via right tunneled CVC. Dsg C/D/I. Pt. dialyzed for 3 hours on a 3K/2.5ca bath per K = 4.6. VSS. NVR = 2.8 Liters. Next HD tx scheduled for Sunday (01/31) Events or Complications during HD (if any): none Net Ultrafiltration: 2.8 L Brief physical exam: Lungs: Decreased breath sounds Heart: RRR Peripheral edema: Trace edema Dialysis access type: Left neck tunneled catheter Dialysis Prescription: Bath Settings: Potassium: 3 mEq Calcium: 2.5 mg Sodium: 140 mEq Bicarb: 35 mEq Time on Dialysis: 3 hours Blood Flow Rate: 350 Dialysate Flow Rate: 700 mL/min Medications: Heparin Dose: Heparin-free IRAIS Dose: Retacrit, 10,000 units Vitamin D Analogs: None Venofer Dose: None Antibiotics: None Catheter lumen dwell: Heparin, 5000 units/mL Schedule: Dialysis schedule: Day of next hemodialysis: Sunday Time of next hemodialysis: To be determined Pinky Nichols RN 01/29/2025 Richmond Landin MD DIALYSIS ORDERABLES Final Resul t * (ABNORMAL) Basic Metabolic Panel (01/29/2025 4:07 AM EST) Sodium 138 135 - 146 mmol/L 01/29/2025 5:21 AM EST [facility] Potassium 3.5 3.4 - 5.2 mmol/L 01/29/2025 5:21 AM EST [facility] Chloride 100 98 - 110 mmol/L 01/29/2025 5:21 AM EST [facility] Total CO2/Bicarbonat e 27 24 - 32 mmol/L 01/29/2025 5:21 AM EST [facility] Anion Gap 11 2 - 15 mmol/L 01/29/2025 5:21 AM EST [facility] BUN 13 7 - 24 mg/dL 01/29/2025 5:21 AM EST [facility] Creatinine, Blood 3.20(H) 0.60 - 1.30 mg/dL 01/29/2025 5:21 AM [facility] Glucose, Blood 100 50 - 100 mg/dL 01/29/2025 5:21 AM [facility] Calcium 9.5 8.5 - 10.5 mg/dL 01/29/2025 5:21 AM [facility] Estimated GFR (MDRD) 20(L) >=60 mL/min/BSA 01/29/2025 5:21 AM [facility] Blood PERIPHERAL BLOOD SPECIMEN / Unknown Venipuncture / Unknown 01/29/2025 4:07 AM EST 01/29/2025 4:38 AM EST Gelacio Garcia MD LAB BLOOD ORDERABLES Ann arroyo Result [facility] [address] [place] [address] * (ABNORMAL) CBC (01/29/2025 4:07 AM EST) WBC 6.28 4.00 - 11.00 K/uL 01/29/2025 4:44 AM [facility] RBC 2.86(L) 4.10 - 5.60 M/uL 01/29/2025 4:44 AM [facility] Hemoglobin 8.3(L) 12.7 - 16.7 g/dL 01/29/2025 4:44 AM [facility] Hematocrit 26.3(L) 38.1 - 50.1 % 01/29/2025 4:44 AM [facility] MCH 29.0 23.0 - 37.0 pg 01/29/2025 4:44 AM [facility] MCHC 31.6 29.0 - 38.0 g/dL 01/29/2025 4:44 AM [facility] MCV 92 82 - 98 fL 01/29/2025 4:44 AM [facility] RDW 15.4(H) 11.5 - 14.5 % 01/29/2025 4:44 AM [facility] Platelet Count 261 150 - 450 K/uL 01/29/2025 4:44 AM [facility] MPV 10.2 6.0 - 14.0 fL 01/29/2025 4:44 AM EST [facility] Blood PERIPHERAL BLOOD SPECIMEN / Unknown Venipuncture / Unknown 01/29/2025 4:07 AM EST 01/29/2025 4:38 AM EST us Gelacio Garcia MD LAB BLOOD ORDERABLES Ann l Result Performing Organization Address [facility]/ZIP Co de Phone Number [facility] [address] [place] [address] * ECG 12 lead (01/28/2025 11:23 AM EST) Ventricular Heart Rate 103 BPM EKG BUR MUSE Atrial Heart Rate 103 BPM EKG B[facility] MUSE MA Interval 188 ms EKG B[facility] MUSE QRSD Interval 144 ms EKG B[facility] MUSE QT Interval 372 ms EKG B[facility] MUSE QTC Interval 487 ms EKG BUR MUSE P [address] 44 degrees EKG BUR MUSE R [address] -56 degrees EKG BUR MUSE T Wave [address] 10 degrees EKG BUR MUSE 01/28/2025 11:2 2 AM EST 01/28/2025 12:51 PM EST Narrative EKG BUR MUSE - 01/28/2025 12:51 PM EST Sinus tachycardia Right bundle branch block Left anterior fascicular block --- Bifascicular block --- Abnormal ECG Confirmed by Iam Underwood ([id number]) on 01/28/2025 12:51:04 PM Procedure Note Iam Underwood MD - 01/28/2025 Sinus tachycardia Right bundle branch block Left anterior fascicular block --- Bifascicular block --- Abnormal ECG Confirmed by Iam Underwood ([id number]) on 01/28/2025 12:51:04 PM us Gelacio Garcia MD ECG ORDERABLES Final Res ult Performing Organization Address City/[facility]/ZIP Co de Phone Number EKG BUR MUSE [address] [place] [address] * ECG 12 lead (01/28/2025 10:22 AM EST) Ventricular Heart Rate 136 BPM EKG BUR MUSE QRSD Interval 84 ms EKG BUR MUSE QT Interval 356 ms EKG BUR MUSE QTC Interval 535 ms EKG BUR MUSE R [address] -28 degrees EKG BUR MUSE T Wave [address] 24 degrees EKG BUR MUSE 01/28/2025 10:2 1 AM EST 01/28/2025 12:50 PM EST Narrative EKG BUR MUSE - 01/28/2025 12:50 PM EST Baseline artifact Undetermined rhythm Low voltage QRS Nonspecific intraventricular block Abnormal ECG Confirmed by Iam Underwood ([id number]) on 01/28/2025 12:50:13 PM Procedure Note Iam Underwood MD - 01/28/2025 Baseline artifact Undetermined rhythm Low voltage QRS Nonspecific intraventricular block Abnormal ECG Confirmed by Iam Underwood ([id number]) on 01/28/2025 12:50:13 PM us Gelacio Garcia MD ECG ORDERABLES Final Res ult EKG BUR MUSE [address] [place] [id number] * (ABNORMAL) Comprehensive Metabolic Panel (01/28/2025 5:17 AM EST) Sodium 139 135 - 146 mmol/L 01/28/2025 6:22 AM EST [facility] Potassium 4.6 3.4 - 5.2 mmol/L 01/28/2025 6:22 AM EST [facility] Chloride 100 98 - 110 mmol/L 01/28/2025 6:22 AM EST [facility] Total CO2/Bicarbonate 27 24 - 32 mmol/L 01/28/2025 6:22 AM EST [facility] Anion Gap 12 2 - 15 mmol/L 01/28/2025 6:22 AM EST [facility] BUN 40(H) 7 - 24 mg/dL 01/28/2025 6:22 AM EST [facility] Creatinine, Blood 8.40(H) 0.60 - 1.30 mg/dL 01/28/2025 6:22 AM EST [facility] Glucose, Blood 103(H) 50 - 100 mg/dL 01/28/2025 6:22 AM EST [facility] Calcium 9.3 8.5 - 10.5 mg/dL 01/28/2025 6:22 AM EST [facility] Total Protein 6.8 6.2 - 8.2 g/dL 01/28/2025 6:22 AM [facility] Albumin, Blood 3.7 3.4 - 5.2 g/dL 01/28/2025 6:22 AM [facility] Globulin Result 3.1 2.0 - 4.0 g/dL 01/28/2025 6:22 AM [facility] AST (SGOT) 31 11 - 40 U/L 01/28/2025 6:22 AM [facility] ALT (SGPT) 40 7 - 40 U/L 01/28/2025 6:22 AM [facility] Alkaline Phosphatase 316(H) 30 - 115 U/L 01/28/2025 6:22 AM [facility] Total Bilirubin 0.4 0.2 - 1.2 mg/dL 01/28/2025 6:22 AM [facility] Estimated GFR (MDRD) 6(L) >=60 mL/min/BSA 01/28/2025 6:22 AM [facility] Blood PERIPHERAL BLOOD SPECIMEN / Unknown Venipuncture / Unknown 01/28/2025 5:17 AM EST 01/28/2025 5:51 AM EST Emma Siddiqi MD LAB BLOOD ORDERABLES Final Re sult [facility] [address] [place] [address] * (ABNORMAL) CBC (01/28/2025 5:17 AM EST) WBC 6.65 4.00 - 11.00 K/uL 01/28/2025 5:55 AM [facility] RBC 2.69(L) 4.10 - 5.60 M/uL 01/28/2025 5:55 AM [facility] Hemoglobin 7.8(L) 12.7 - 16.7 g/dL 01/28/2025 5:55 AM [facility] Hematocrit 24.2(L) 38.1 - 50.1 % 01/28/2025 5:55 AM [facility] MCH 29.0 23.0 - 37.0 pg 01/28/2025 5:55 AM [facility] MCHC 32.2 29.0 - 38.0 g/dL 01/28/2025 5:55 AM [facility] MCV 90 82 - 98 fL 01/28/2025 5:55 AM [facility] RDW 15.4(H) 11.5 - 14.5 % 01/28/2025 5:55 AM [facility] Platelet Count 240 150 - 450 K/uL 01/28/2025 5:55 AM [facility] MPV 10.1 6.0 - 14.0 fL 01/28/2025 5:55 AM [facility] Blood PERIPHERAL BLOOD SPECIMEN / Unknown Venipuncture / Unknown 01/28/2025 5:17 AM EST 01/28/2025 5:51 AM EST Emma Siddiqi MD LAB BLOOD ORDERABLES Final Re sult Performing Organization Address City/[facility]/ZIP Co de Phone Number [facility] [address] [place] [address] * Culture, Aerobic, Urine (01/28/2025 1:46 AM EST) Culture <10,000 Gram Positive Divine FELIPE 01/29/2025 6:29 AM [facility] Urine MID-STREAM URINE SPECIMEN / Unknown Collection / Unknown 01/28/2025 1:46 AM EST 01/28/2025 2:11 AM EST Leticia Gilmore MD MICROBIOLOGY - GENERAL ORDERABL ES Final Result [facility] [address] [place] [address], * (ABNORMAL) Urinalysis with Reflex to Urine Culture (01/28/2025 1:46 AM EST) Color, Urine Yellow Colorless, Straw, Yellow 01/28/2025 2:11 AM [facility] Clarity, Urine Clear Clear 01/28/2025 2:11 AM [facility] pH, Urine 8.0 5.0 - 9.0 01/28/2025 2:11 AM [facility] Protein, Urine 100 mg/dL(A) Negative 01/29/20 2:11 AM [facility] Glucose, Urine 50 mg/dL(A) Negative 2:11 AM [facility] Ketone, Urine 5 mg/dL(A) Negative 01/28/2025 2:11 AM [facility] Bilirubin, Urine Negative Negative 01/28/2025 2:11 AM [facility] Urobilinogen, Urine Negative Negative 01/28/2025 2:11 AM [facility] Blood, Urine Negative Negative 01/28/2025 2:11 AM [facility] Leukocyte Esterase, Urine Trace(A) Negative 01/28/2025 2:11 AM [facility] Nitrite, Urine Negative Negative 01/28/2025 2:11 AM [facility] Specific [place], Urine 1.012 1.001 - 1.030 01/28/2025 2:11 AM [facility] White Blood Cells, Urine 13(H) <=4 /hpf 01/28/2025 2:11 AM [facility] Red Blood Cells, Urine 1 <=2 /hpf 01/28/2025 2:11 AM [facility] Bacteria Urine Few(A) None Seen, Rare 01/28/2025 2:11 AM [facility] Squamous Epithelial Cells Rare Rare, Few, None Seen /HPF 01/28/2025 2:11 AM [facility] Urine MID-STREAM URINE SPECIMEN / Unknown Collection / Unknown 01/28/2025 1:46 AM EST 01/28/2025 1:49 AM EST us Leticia Gilmore MD URINE ORDERABLES Final Result [facility] [address] [place] [address] * (ABNORMAL) Drug Screen, Urine (01/28/2025 1:46 AM EST) 6-Aceytlmorphine Screen, Urine Negative Negative 01/28/2025 2:42 AM EST [facility] Comment:Add on order [id number] Opiates and Oxycodone, Urine, Confirmation, if confirmation desired. Amphetamines Screen, Urine Negative Negative 01/28/2025 2:42 AM [facility] Comment: Screen for Amphetamine, Metamphetamine or other Amphetamine-like compounds. Add-on order [id number] Amphetamine, Urine, Confirmation if confirmation desired. Barbiturates Screen, Urine Negative Negative 01/28/2025 2:42 AM [facility] Comment:Add-on order [id number] Barbiturate, Urine, Confirmation if confirmation desired. Benzodiazepine Screen, Urine Negative Negative 01/28/2025 2:42 AM EST [facility] Comment: Add-on order [id number] Benzodiazepine, Urine, Confirmation if confirmation desired. Buprenorphine Screen, Urine Negative Negative 01/28/2025 2:42 AM [facility] [facility] Comment:Add-on order [id number] Buprenorphine, Urine, Confirmation if confirmation desired. Cannabinoids Screen, Urine Negative Negative 01/28/2025 2:42 AM [facility] Comment:Add-on order [id number] Cannabinoids, Urine, if confirmation desired. Cocaine Metabolite Screen, Urine Positive(A) Negative 01/28/2025 2:42 AM [facility] Comment:Add-on order [id number] Cocaine, Urine, Confirmation if confirmation desired. Ethanol Screen, Urine Negative Negative 01/28/2025 2:42 AM [facility] Fentanyl Screen, Urine Negative Negative 01/28/2025 2:42 AM [facility] Comment:Add-on order [id number] Fentanyl Confirmation, Urine, if confirmation desired. Methadone Screen, Urine Negative Negative 01/28/2025 2:42 AM [facility] Comment:Add order [id number] Me thadone, Urine, Confirmation if confirmation desired. Opiates Screen, Urine Negative Negative 01/28/2025 2:42 AM [facility] Comment: Screen for Morphine, Codeine, Hyrdocodone, Hydromorphone, or other Morphine- related opiates. Add on order [id number] Opiates and Oxycodone, Urine, Confirmation if confirmation desired. Oxycodone Screen, Urine Negative Negative 01/28/2025 2:42 AM [facility] Comment:Add-on order [id number] Opiates and Oxycodone, Urine, Confirmation if confirmation desired. Tramadol Screen, Urine Negative Negative 01/28/2025 2:42 AM [facility] Comment:Add-on order [id number] Tramadol Confirmation, Urine, if confirmation desired. Creatinine, Yang Urine 64.0 >=15.0 mg/dL 01/28/2025 2:42 AM EST [facility] Urine URINE SPECIMEN / Unknown Collection / Unknown 01/28/2025 1:46 AM EST 01/28/2025 1:49 AM EST [facility] - 01/28/2025 2:42 AM EST These tests are for screening purposes only and should only be used for medical purposes. The cutoff concentrations for determining a positive result are as follows: 6-Acetylmorphine 10 ng/mL 6-acetylmorphine Amphetamines 1000 ng/mL d-methamphetamine Barbiturates 200 ng/mL secobarbital Benzodiazepines 200 ng/mL nordiazepam Buprenorphine 5 ng/mL norbuprenorphine Cannabinoids 50 ng/mL COOH-THC Cocaine 300 ng/mL benzoylecgonine Ethanol 20 mg/dL ethanol Fentanyl 5 ng/mL norfentanyl Methadone 300 ng/mL methadone Opiates 300 ng/mL morphine Oxycodone 100 ng/mL oxycodone Tramadol 200 ng/mL tramadol False negative and false positive results may occur due to cross-reactivity, patient medications or sample adulteration. If the validity of these results is uncertain, confirmatory testing can be done upon specific request. us Leticia Gilmore MD URINE ORDERABLES Final Result Performing Organization Address City/State/[facility] Co de Phone Number [facility] [address] [place] [address] * Hemodialysis inpatient (01/27/2025 11:23 PM EST) Pinky Velasquez RN - 01/27/2025 11:23 PM EST Pinky Nichols RN 01/27/2025 11:23 PM Hemodialysis Nursing Procedure Note Patient: Sushant Christianson : 1960 CSN: [id number] Treatment Summary: Pt. A&O x3. Last HD tx Sunday (01/20). STAT HD tx initiated per K = 6.0 then 5.4. Pt. dialyzed for 3 hours on a 2K/2.5ca bath. VSS. NVR = 3.0 Liters. Next HD tx scheduled for (01/29) Events or Complications during HD (if any): none Net Ultrafiltration: 3.0 L Brief physical exam: Lungs: Bibasilar crackles Heart: RRR Peripheral edema: Trace edema Dialysis access type: Right neck tunneled catheter Dialysis Prescription: Bath Settings: Potassium: 2 mEq Calcium: 2.5 mg Sodium: 140 mEq Bicarb: 35 mEq Time on Dialysis: 3 hours Blood Flow Rate: 350 Dialysate Flow Rate: 600 mL/min Medications: Heparin Dose: Heparin-free IRAIS Dose: Retacrit, 10,000 units Vitamin D Analogs: None Venofer Dose: None Antibiotics: None Catheter lumen dwell: Heparin, 5000 units/mL Schedule: Dialysis schedule: Day of next hemodialysis: Time of next hemodialysis: To be determined Pinky Nichols RN 01/27/2025 Annette Stanton MD DIALYSIS ORDERABLES Final Result * (ABNORMAL) POCT Glucose (01/27/2025 3:59 PM EST) Glucose, POC 135(H) 70 - 118 mg/dL 01/27/2025 4:10 PM EST [facility] Blood 01/27/2025 3:59 PM EST 01/27/2025 4:10 PM EST Emma Siddiqi MD POCT ORDERABLES - DEVICE Ann l Result [facility] [address] [place] [id number] * (ABNORMAL) Basic Metabolic Panel (01/27/2025 3:38 PM EST) Sodium 136 135 - 146 mmol/L 01/27/2025 4:16 PM EST [facility] Potassium 5.4(H) 3.4 - 5.2 mmol/L 01/27/2025 4:16 PM EST [facility] Chloride 95(L) 98 - 110 mmol/L 01/27/2025 4:16 PM EST [facility] Total CO2/Bicarbonat e 24 24 - 32 mmol/L 01/27/2025 4:16 PM EST [facility] Anion Gap 18(H) 2 - 15 mmol/L 01/27/2025 4:16 PM EST [facility] BUN 97(H) 7 - 24 mg/dL 01/27/2025 4:16 PM EST [facility] Creatinine, Blood 15.20(H) 0.60 - 1.30 mg/dL 01/27/2025 4:16 PM EST [facility] Glucose, Blood 143(H) 50 - 100 mg/dL 01/27/2025 4:16 PM EST [facility] Calcium 9.2 8.5 - 10.5 mg/dL 01/27/2025 4:16 PM EST [facility] Estimated GFR (MDRD) 3(L) >=60 mL/min/BSA 01/27/2025 4:16 PM EST [facility] Blood PERIPHERAL BLOOD SPECIMEN / Unknown Venipuncture / Unknown 01/27/2025 3:38 PM EST 01/27/2025 3:42 PM EST Leticia Gilmore MD LAB BLOOD ORDERABLES Final Resu lt [facility] [address] [place] [address] * XR Knee 4+ Vw Left (Trauma) (01/27/2025 3:25 PM EST) Anatomical Region Laterality Modality Knee Left Digital Radiogra phy Impressions 01/27/2025 3:36 PM EST Soft tissue swelling. No acute fracture identified. Narrative 01/27/2025 3:36 PM EST EXAM DESCRIPTION: XR KNEE 4+ VW LEFT CLINICAL HISTORY: Left knee pain. Trauma. COMPARISON: No prior studies available for comparison. TECHNIQUE: 4 views submitted FINDINGS: The bones are intact and normally aligned. There is soft tissue swelling. There is no significant joint effusion. Bones are demineralized. The joint spaces appear normal. Resulting Agency Comment [id number] Procedure Note Kt Fuentes MD - 01/27/2025 EXAM DESCRIPTION: XR KNEE 4+ VW LEFT CLINICAL HISTORY: Left knee pain. Trauma. COMPARISON: No prior studies available for comparison. TECHNIQUE: 4 views submitted FINDINGS: The bones are intact and normally aligned. There is soft tissue swelling. There is no significant joint effusion. Bones are demineralized. The joint spaces appear normal. IMPRESSION: Soft tissue swelling. No acute fracture identified. Leticia Gilmore MD IMG DIAGNOSTIC IMAGING ORDERABL ES Final Result * (ABNORMAL) POCT Glucose (01/27/2025 2:48 PM EST) Glucose, POC 157(H) 70 - 118 mg/dL 01/27/2025 2:56 PM EST [facility] Blood 01/27/2025 2:48 PM EST 01/27/2025 2:56 PM EST Leticia Gilmore MD POCT ORDERABLES - DEVICE Final Result Performing Organization Address City/State/[facility] Co de Phone Number [facility] [address] [place] [address] * (ABNORMAL) Venous Blood Gas (01/27/2025 2:13 PM EST) pH, Venous 7.46(H) 7.32 - 7.42 01/27/2025 2:15 PM EST [facility] pCO2, Venous 31(L) 38 - 49 mmHg 01/27/2025 2:15 PM EST [facility] pO2, Venous 32 No Reference Range mmHg 01/27/2025 2:15 PM EST [facility] HCO3, Venous 22 18 - 32 mmol/L 01/28/20 25 2:15 PM EST [facility] % O2Hb, Venous 65 No Established Reference Range % 01/27/2025 2:15 PM EST [facility] Base Excess, Venous -1.5(L) 0.0 - 3.0 mmol/L 01/27/2025 2:15 PM EST [facility] Carboxyhemoglob in, VBG 4.8(H) 0.5 - 1.5 % 01/27/2025 2:15 PM EST [facility] Methemoglobin, VBG 1.2(H) <1.0 % 01/27/2025 2:15 PM EST [facility] Patient Temperature 98.6 01/27/2025 2:15 PM EST [facility] Blood Venipuncture / Unknown 01/27/2025 2:13 PM EST 01/27/2025 2:13 PM EST us Leticia Gilmore MD LAB BLOOD ORDERABLES Final Resu lt [facility] [address] [place] [address] [phone] * Covid/Flu/RSV (Rapid) (01/27/2025 2:10 PM EST) Pathologist [facility] Coronavirus SARS-CoV-2 Not Detected Not Detected 01/27/2025 2:59 PM EST [facility] Influenza A Not Detected Not Detected 01/27/2025 2:59 PM EST [facility] Comment:A negative test does not rule out infection with an influenza virus. Influenza B Not Detected Not Detected 01/27/2025 2:59 PM EST [facility] Comment:A negative test does not rule out infection with an influenza virus. RSV by PCR Not Detected Not Detected 01/27/2025 2:59 PM EST [facility] Comment:A negative test does not rule out infection with RSV. Respiratory SWAB OF INTERNAL NOSE / Unknown Collection / Unknown 01/27/2025 2:10 PM EST 01/27/2025 2:10 PM EST Narrative [facility] - 01/27/2025 2:59 PM EST Test performed using the [employer] GeneXpert CoV-2/Flu/RSV plus (RT-PCR) assay, which has received emergency use authorization (EUA) by the U.S. Food and Drug Administration. Test performance has been verified by the [facility]. A Negative test result means that SARS-CoV-2 RNA was not present in the specimen above the limit of detection. A negative result does not rule out the possibility of COVID-19 and should not be used as the sole basis for treatment or patient management decisions. If COVID-19 is still suspected, based on exposure history together with other clinical findings, re-testing should be considered in consultation with public health authorities. Laboratory test results should always be considered in the context of clinical observations and epidemiological data in making a final diagnosis and patient management decisions. Fact sheet for providers: https://www.fda.gov/media/310069/download Fact sheet for patients: https://www.fda.gov/media/677526/download Method: Real time polymerase chain reaction, multianalyte Leticia Gilmore MD BODY FLUIDS AND STOOLS ORDERABL ES Final Result Performing Organization Address [facility] [place] [address] * APTT (01/27/2025 2:07 PM EST) PTT 33 22 - 36 s 01/27/2025 2:36 PM EST [facility] Comment:Unfractionated Hepar in Therapeutic Range: 70-110 seconds. Blood PERIPHERAL BLOOD SPECIMEN / Unknown Venipuncture / Unknown 01/27/2025 2:07 PM EST 01/27/2025 2:07 PM EST Leticia Gilmore MD LAB BLOOD ORDERABLES Final Resu lt Performing Organization Address [facility] [place] [address] * (ABNORMAL) PT-INR (01/27/2025 2:07 PM EST) Prothrombin Time 14.9(H) 12.2 - 14.2 s 01/27/2025 2:36 PM EST [facility] INR 1.1 0.9 - 1.1 01/27/2025 2:36 PM EST [facility] Blood PERIPHERAL BLOOD SPECIMEN / Unknown Venipuncture / Unknown 01/27/2025 2:07 PM EST 01/27/2025 2:07 PM EST Narrative [facility] - 01/27/2025 2:36 PM EST RECOMMENDED THERAPEUTIC RANGE FOR PATIENTS ON ORAL ANTICOAGULANT THERAPY: Venous Thromboembolic Disorder: INR 2.0-3.0 Prevention of Systemic Embolism: INR 2.0-3.0 Mechanical Heart Valves: INR 2.0-3.5 These therapeutic INR ranges are provided as guidelines. Clinical judgment and patient history should be used to determine patient specific therapeutic ranges and when there might be a need for a higher intensity therapy. Leticia Gilmore MD LAB BLOOD ORDERABLES Final Resu lt Performing Organization Address [facility]/ZIP Co de Phone Number [facility] [address] [place] [address] * (ABNORMAL) Troponin (once) (01/27/2025 2:07 PM EST) Troponin T HS 87(H) 0 - <52 ng/L 01/27/2025 2:37 PM EST [facility] Blood PERIPHERAL BLOOD SPECIMEN / Unknown Venipuncture / Unknown 01/27/2025 2:07 PM EST 01/27/2025 2:07 PM EST Leticia Gilmore MD LAB BLOOD ORDERABLES Final Resu lt Performing Organization Address [facility] [[email or web address]] de Phone Number [address] [phone] * CT Chest Abdomen Pelvis Trauma With Contrast (01/27/2025 2:01 PM EST) Anatomical Region Laterality Modality Computed Tomogra phy Impressions 01/27/2025 2:35 PM EST 1. No convincing evidence of acute traumatic injury. 2. Subacute fractures of the right posterior 9-11th ribs with small effusion. 3. Left renal cyst which previously appeared simple, now hemorrhagic. Rupture is suspected (perinephric fluid and fluid about tail of the pancreas). No active bleeding. 4. Somewhat collapsed and featureless transverse colon could reflect colitis. 5. Other findings as above. Narrative 01/27/2025 2:35 PM EST EXAM DESCRIPTION: CT CHEST ABDOMEN PELVIS TRAUMA W CONTRAST CLINICAL HISTORY: Falls. Failure to thrive. COMPARISON: CXR dated 12/26/2024. CT of the abdomen pelvis dated 12/20/2022. CONTRAST: 100ml of Omnipaque 350 were administered. TECHNIQUE: The standard 5 mm sequential axial images were obtained through the chest, abdomen and pelvis. Coronal and sagittal reconstructions were also obtained. The pelvis was imaged to completely assess for acute pathology. FINDINGS: Lung tian: The lungs are well aerated and clear. No significant lung nodules or masses are identified. No interstitial abnormalities are identified. There is no evidence of bronchiectasis. There is a small right pleural effusion. No pneumothorax. Heart and Mediastinum: The heart and great vessels are normal for age. No mediastinal or hilar lymphadenopathy is identified. Airways: The trachea and central bronchi are widely patent and clear without filling defects identified. Neck structures: There is a thyroid goiter. Hepatobiliary: The liver is normal. There is cholelithiasis. The intrahepatic and extrahepatic bile ducts are normal. There is calcification of the pancreas as could be seen with chronic pancreatitis.There is stranding and fluid about the tail of the pancreas, which appears secondary to ruptured left renal cyst. The spleen is normal. Genitourinary: Right adrenal gland is unremarkable. There is a 1.4 cm left adrenal nodule, unchanged. The kidneys are atrophic bilaterally. There is a 3.3 cm left renal cyst which appears acutely hemorrhagic with rupture. No active bleeding seen. No renal masses or stones. No hydronephrosis. The pelvic organs and bladder are unremarkable. Bowel and peritoneal cavity: No evidence of appendicitis. The transverse colon appears somewhat collapsed and featureless. There is diverticulosis. Elsewhere, no bowel related obstruction or perforation is detected. No ascites or peritoneal fluid collections are identified. There is no evidence of free intraperitoneal air. No abdominal wall hernia is identified. Retroperitoneum: There is no evidence of retroperitoneal or pelvic lymphadenopathy. The retroperitoneal vascular structures appear normal. Bones and soft tissues: There are subacute fractures of the right posterior 9-11th ribs. There is hardware in the right hip. There is a wedge deformity of T8. This appears to be chronic. There is gynecomastia. Resulting Agency Comment [id number] Procedure Note Kt Fuentes MD - 01/27/2025 EXAM DESCRIPTION: CT CHEST ABDOMEN PELVIS TRAUMA W CONTRAST CLINICAL HISTORY: Falls. Failure to thrive. COMPARISON: CXR dated 12/26/2024. CT of the abdomen pelvis dated 12/20/2022. CONTRAST: 100ml of Omnipaque 350 were administered. TECHNIQUE: The standard 5 mm sequential axial images were obtained through the chest, abdomen and pelvis. Coronal and sagittal reconstructions were also obtained. The pelvis was imaged to completely assess for acute pathology. FINDINGS: Lung tian: The lungs are well aerated and clear. No significant lung nodules or masses are identified. No interstitial abnormalities are identified. There is no evidence of bronchiectasis. There is a small right pleural effusion. No pneumothorax. Heart and Mediastinum: The heart and great vessels are normal for age. No mediastinal or hilar lymphadenopathy is identified. Airways: The trachea and central bronchi are widely patent and clear without filling defects identified. Neck structures: There is a thyroid goiter. Hepatobiliary: The liver is normal. There is cholelithiasis. The intrahepatic and extrahepatic bile ducts are normal. There is calcification of the pancreas as could be seen with chronic pancreatitis.There is stranding and fluid about the tail of the pancreas, which appears secondary to ruptured left renal cyst. The spleen is normal. Genitourinary: Right adrenal gland is unremarkable. There is a 1.4 cm left adrenal nodule, unchanged. The kidneys are atrophic bilaterally. There is a 3.3 cm left renal cyst which appears acutely hemorrhagic with rupture. No active bleeding seen. No renal masses or stones. No hydronephrosis. The pelvic organs and bladder are unremarkable. Bowel and peritoneal cavity: No evidence of appendicitis. The transverse colon appears somewhat collapsed and featureless. There is diverticulosis. Elsewhere, no bowel related obstruction or perforation is detected. No ascites or peritoneal fluid collections are identified. There is no evidence of free intraperitoneal air. No abdominal wall hernia is identified. Retroperitoneum: There is no evidence of retroperitoneal or pelvic lymphadenopathy. The retroperitoneal vascular structures appear normal. Bones and soft tissues: There are subacute fractures of the right posterior 9-11th ribs. There is hardware in the right hip. There is a wedge deformity of T8. This appears to be chronic. There is gynecomastia. IMPRESSION: 1. No convincing evidence of acute traumatic injury. 2. Subacute fractures of the right posterior 9-11th ribs with small effusion. 3. Left renal cyst which previously appeared simple, now hemorrhagic. Rupture is suspected (perinephric fluid and fluid about tail of the pancreas). No active bleeding. 4. Somewhat collapsed and featureless transverse colon could reflect colitis. 5. Other findings as above. Leticia Gilmore MD IMG CT ORDERABLES Final Result * CT Cervical Spine WO IV Contrast (01/27/2025 1:55 PM EST) Anatomical Region Laterality Modality Cervical Spine Computed Tomogra phy Impressions 01/27/2025 2:[address]: No acute intracranial process. Generalized tissue loss, more than expected for the patient's age. Small-vessel ischemic disease, as before. CT of the cervical spine: Limited study secondary to patient motion. No acute displaced fracture. Reversal of the normal cervical lordosis, as before, likely related to degenerative disc disease. Multilevel degenerative disc disease. Facet joint hypertrophy and narrowing of the neural foramina at multiple levels. Partially visualized right-sided central venous catheter. Narrative 01/27/2025 2:05 PM EST EXAM DESCRIPTION: CT HEAD ANTICOAG WO CONTRAST; CT CERVICAL SPINE WO CONTRAST CLINICAL HISTORY: 65-year-old man brought in by ambulance from home with failure to thrive. Depression. Frequent falls. This patient takes blood thinners. Patient has not been to dialysis. ETOH. Sleep issues. Bruising on legs and left side of the chest. Last dialysis on Sunday of last week. COMPARISON: Head CT from 12/23/2024. CT of the cervical spine from 12/02/2024. TECHNIQUE: Contiguous 5 mm axial images were obtained through the head and cervical spine. Subsequently sagittal and coronal reconstructions were performed. FINDINGS: Head CT: The ventricles, sulci and cisterns remain prominent, consistent with generalized tissue loss, more than expected for the patient's age. There is no mass, mass effect or hemorrhage. No evidence of an acute territorial infarct. No extra-axial fluid collection. There is persistent patchy low attenuation in the periventricular and subcortical white matter which is nonspecific but probably reflects the sequela of small-vessel ischemic disease in a patient of this age. The visualized paranasal sinuses and mastoid air cells are well-aerated. No air-fluid levels to suggest acute sinusitis. The visualized globes appear intact. There is no evidence of an acute displaced skull fracture. CT of the cervical spine: These images are slightly degraded by patient motion. The bones are well mineralized. The normal vertebral body heights are maintained. No prevertebral soft tissue swelling. No acute displaced fracture. There is reversal of the normal cervical lordosis, as before. There is multilevel degenerative disc disease with endplate osteophytes and loss of the normal intervertebral disc spaces diffusely throughout the cervical spine but most pronounced at C2 through C6. There is bilateral facet joint hypertrophy with narrowing of the neural foramina at multiple levels. The dens appears intact. The lateral masses of C1 are normally located. There is a partially visualized central venous catheter in the right upper chest. There is atherosclerosis at the left carotid bifurcation. The thyroid gland is not well visualized. The lung apices are well-aerated. There are multiple small cervical lymph nodes in the anterior and posterior cervical triangles. Resulting Agency Comment Procedure Note Samanta Toscano MD - 01/27/2025 EXAM DESCRIPTION: CT HEAD ANTICOAG WO CONTRAST; CT CERVICAL SPINE WO CONTRAST CLINICAL HISTORY: 65-year-old man brought in by ambulance from home with failure to thrive. Depression. Frequent falls. This patient takes blood thinners. Patient has not been to dialysis. ETOH. Sleep issues. Bruising on legs and left side of the chest. Last dialysis on Sunday of last week. COMPARISON: Head CT from 12/23/2024. CT of the cervical spine from 12/02/2024. TECHNIQUE: Contiguous 5 mm axial images were obtained through the head and cervical spine. Subsequently sagittal and coronal reconstructions were performed. FINDINGS: Head CT: The ventricles, sulci and cisterns remain prominent, consistent with generalized tissue loss, more than expected for the patient's age. There is no mass, mass effect or hemorrhage. No evidence of an acute territorial infarct. No extra-axial fluid collection. There is persistent patchy low attenuation in the periventricular and subcortical white matter which is nonspecific but probably reflects the sequela of small-vessel ischemic disease in a patient of this age. The visualized paranasal sinuses and mastoid air cells are well-aerated. No air-fluid levels to suggest acute sinusitis. The visualized globes appear intact. There is no evidence of an acute displaced skull fracture. CT of the cervical spine: These images are slightly degraded by patient motion. The bones are well mineralized. The normal vertebral body heights are maintained. No prevertebral soft tissue swelling. No acute displaced fracture. There is reversal of the normal cervical lordosis, as before. There is multilevel degenerative disc disease with endplate osteophytes and loss of the normal intervertebral disc spaces diffusely throughout the cervical spine but most pronounced at C2 through C6. There is bilateral facet joint hypertrophy with narrowing of the neural foramina at multiple levels. The dens appears intact. The lateral masses of C1 are normally located. There is a partially visualized central venous catheter in the right upper chest. There is atherosclerosis at the left carotid bifurcation. The thyroid gland is not well visualized. The lung apices are well-aerated. There are multiple small cervical lymph nodes in the anterior and posterior cervical triangles. IMPRESSION: Head CT: No acute intracranial process. Generalized tissue loss, more than expected for the patient's age. Small-vessel ischemic disease, as before. CT of the cervical spine: Limited study secondary to patient motion. No acute displaced fracture. Reversal of the normal cervical lordosis, as before, likely related to degenerative disc disease. Multilevel degenerative disc disease. Facet joint hypertrophy and narrowing of the neural foramina at multiple levels. Partially visualized right-sided central venous catheter. us Leticia Gilmore MD IM CT ORDERABLES Final Result * CT Head Anticoag Without Contrast (01/27/2025 1:55 PM EST) Anatomical Region Laterality Modality Head Computed Tomogra phy Impressions 01/27/2025 2:05 PM EST Head CT: No acute intracranial process. Generalized tissue loss, more than expected for the patient's age. Small-vessel ischemic disease, as before. CT of the cervical spine: Limited study secondary to patient motion. No acute displaced fracture. Reversal of the normal cervical lordosis, as before, likely related to degenerative disc disease. Multilevel degenerative disc disease. Facet joint hypertrophy and narrowing of the neural foramina at multiple levels. Partially visualized right-sided central venous catheter. Narrative 01/27/2025 2:05 PM EST EXAM DESCRIPTION: CT HEAD ANTICOAG WO CONTRAST; CT CERVICAL SPINE WO CONTRAST CLINICAL HISTORY: 65-year-old man brought in by ambulance from home with failure to thrive. Depression. Frequent falls. This patient takes blood thinners. Patient has not been to dialysis. ETOH. Sleep issues. Bruising on legs and left side of the chest. Last dialysis on Sunday of last week. COMPARISON: Head CT from 12/23/2024. CT of the cervical spine from 12/02/2024. TECHNIQUE: Contiguous 5 mm axial images were obtained through the head and cervical spine. Subsequently sagittal and coronal reconstructions were performed. FINDINGS: Head CT: The ventricles, sulci and cisterns remain prominent, consistent with generalized tissue loss, more than expected for the patient's age. There is no mass, mass effect or hemorrhage. No evidence of an acute territorial infarct. No extra-axial fluid collection. There is persistent patchy low attenuation in the periventricular and subcortical white matter which is nonspecific but probably reflects the sequela of small-vessel ischemic disease in a patient of this age. The visualized paranasal sinuses and mastoid air cells are well-aerated. No air-fluid levels to suggest acute sinusitis. The visualized globes appear intact. There is no evidence of an acute displaced skull fracture. CT of the cervical spine: These images are slightly degraded by patient motion. The bones are well mineralized. The normal vertebral body heights are maintained. No prevertebral soft tissue swelling. No acute displaced fracture. There is reversal of the normal cervical lordosis, as before. There is multilevel degenerative disc disease with endplate osteophytes and loss of the normal intervertebral disc spaces diffusely throughout the cervical spine but most pronounced at C2 through C6. There is bilateral facet joint hypertrophy with narrowing of the neural foramina at multiple levels. The dens appears intact. The lateral masses of C1 are normally located. There is a partially visualized central venous catheter in the right upper chest. There is atherosclerosis at the left carotid bifurcation. The thyroid gland is not well visualized. The lung apices are well-aerated. There are multiple small cervical lymph nodes in the anterior and posterior cervical triangles. Resulting Agency Comment [id number] Procedure Note Samanta Toscano MD - 01/27/2025 EXAM DESCRIPTION: CT HEAD ANTICOAG WO CONTRAST; CT CERVICAL SPINE WO CONTRAST CLINICAL HISTORY: 65-year-old man brought in by ambulance from home with failure to thrive. Depression. Frequent falls. This patient takes blood thinners. Patient has not been to dialysis. ETOH. Sleep issues. Bruising on legs and left side of the chest. Last dialysis on Sunday of last week. COMPARISON: Head CT from 12/23/2024. CT of the cervical spine from 12/02/2024. TECHNIQUE: Contiguous 5 mm axial images were obtained through the head and cervical spine. Subsequently sagittal and coronal reconstructions were performed. FINDINGS: Head CT: The ventricles, sulci and cisterns remain prominent, consistent with generalized tissue loss, more than expected for the patient's age. There is no mass, mass effect or hemorrhage. No evidence of an acute territorial infarct. No extra-axial fluid collection. There is persistent patchy low attenuation in the periventricular and subcortical white matter which is nonspecific but probably reflects the sequela of small-vessel ischemic disease in a patient of this age. The visualized paranasal sinuses and mastoid air cells are well-aerated. No air-fluid levels to suggest acute sinusitis. The visualized globes appear intact. There is no evidence of an acute displaced skull fracture. CT of the cervical spine: These images are slightly degraded by patient motion. The bones are well mineralized. The normal vertebral body heights are maintained. No prevertebral soft tissue swelling. No acute displaced fracture. There is reversal of the normal cervical lordosis, as before. There is multilevel degenerative disc disease with endplate osteophytes and loss of the normal intervertebral disc spaces diffusely throughout the cervical spine but most pronounced at C2 through C6. There is bilateral facet joint hypertrophy with narrowing of the neural foramina at multiple levels. The dens appears intact. The lateral masses of C1 are normally located. There is a partially visualized central venous catheter in the right upper chest. There is atherosclerosis at the left carotid bifurcation. The thyroid gland is not well visualized. The lung apices are well-aerated. There are multiple small cervical lymph nodes in the anterior and posterior cervical triangles. IMPRESSION: Head CT: No acute intracranial process. Generalized tissue loss, more than expected for the patient's age. Small-vessel ischemic disease, as before. CT of the cervical spine: Limited study secondary to patient motion. No acute displaced fracture. Reversal of the normal cervical lordosis, as before, likely related to degenerative disc disease. Multilevel degenerative disc disease. Facet joint hypertrophy and narrowing of the neural foramina at multiple levels. Partially visualized right-sided central venous catheter. us Leticia Gilmore MD [facility] CT ORDERABLES Final Result * ECG 12 lead (01/27/2025 12:57 PM EST) Ventricular Heart Rate 99 BPM EKG BUR MUSE Atrial Heart Rate 99 BPM EKG BUR MUSE MA Interval 202 ms EKG BUR MUSE QRSD Interval 148 ms EKG BUR MUSE QT Interval 380 ms EKG BUR MUSE QTC Interval 487 ms EKG BUR MUSE P [address] 65 degrees EKG BUR MUSE R [address] -61 degrees EKG BUR MUSE T Wave [address] 36 degrees EKG BUR MUSE 01/27/2025 12:4 3 PM EST 01/27/2025 4:06 PM EST Narrative EKG BUR MUSE - 01/27/2025 4:06 PM EST Normal sinus rhythm Left axis deviation Right bundle branch block Abnormal ECG Confirmed by Iam Underwood ([id number]) on 01/27/2025 4:06:57 PM Procedure Note Iam Underwood MD - 01/27/2025 Normal sinus rhythm Left axis deviation Right bundle branch block Abnormal ECG Confirmed by Iam Underwood ([id number]) on 01/27/2025 4:06:57 PM us Leticia Gilmore MD ECG ORDERABLES Final Result Performing Organization Address [facility] Co de Phone Number EKG NUBIA MUSE [address] [place] [address] * POCT Glucose (01/27/2025 12:49 PM EST) Glucose, POC 102 70 - 118 mg/dL 01/27/2025 12:58 PM EST [facility] Blood 01/27/2025 12:4 9 PM EST 01/27/2025 12:58 PM EST us Provider Not In System POCT ORDERABLES - DEVICE Final Result Performing Organization Address [facility] [[email or web address]] de Phone Number DEL [facility] [address] [place] [phone] * Hepatitis B Surface Antigen (01/27/2025 12:40 PM EST) [facility] Hep B Aylin Ag Negative Negative 01/27/2025 2:37 PM EST [facility] Blood PERIPHERAL BLOOD SPECIMEN / Unknown Venipuncture / Unknown 01/27/2025 12:40 PM EST 01/27/2025 12:42 PM EST us Annette Stanton MD LAB BLOOD ORDERABLES Final Resul t Performing Organization Address [facility] Co de Phone Number [facility] [address] [place] [address] * (ABNORMAL) Hepatic Function Panel (01/27/2025 12:40 PM EST) Pathologist [facility] Total Protein 7.5 6.2 - 8.2 g/dL 01/27/2025 2:05 PM [facility] Albumin, Blood 4.1 3.4 - 5.2 g/dL 01/27/2025 2:05 PM [facility] Globulin Result 3.4 2.0 - 4.0 g/dL 01/27/2025 2:05 PM [facility] Total Bilirubin 0.4 0.2 - 1.2 mg/dL 01/27/2025 2:05 PM [facility] Direct Bilirubin 0.1 0.1 - 0.5 mg/dL 01/27/2025 2:05 PM [facility] Comment:Specimen hemolyzed; result may be invalid. Interpret with caution. Alkaline Phosphatase 382(H) 30 - 115 U/L 01/27/2025 2:05 PM [facility] AST (SGOT) 52(H) 11 - 40 U/L 01/27/2025 2:05 PM [facility] Comment:Specimen hemolyzed; result may be invalid. Interpret with caution. ALT (SGPT) 54(H) 7 - 40 U/L 01/27/2025 2:05 PM [facility] Blood PERIPHERAL BLOOD SPECIMEN / Unknown Venipuncture / Unknown 01/27/2025 12:40 PM EST 01/27/2025 12:42 PM EST us Leticia Gilmore MD LAB BLOOD ORDERABLES Final Resu lt [facility] [address] [place] [address] * (ABNORMAL) Toxicology Screen, Blood (01/27/2025 12:40 PM EST) Pathologist [facility] Acetaminophen Result,Blood 7(L) 10 - 30 ug/mL 01/27/2025 1:40 PM EST [facility] Alcohol <10 <10 mg/dL 01/27/2025 1:40 PM [facility] Salicylate Level, Blood <1 <30 mg/dL 01/27/2025 1:40 PM EST [facility] Blood PERIPHERAL BLOOD SPECIMEN / Unknown Venipuncture / Unknown 01/27/2025 12:40 PM EST 01/27/2025 12:42 PM EST Leticia Gilmore MD LAB BLOOD ORDERABLES Final Resu lt Performing Organization Address [facility]/ZIP Co de Phone Number [facility] [address] [place] [address] * Blue Top (01/27/2025 12:40 PM EST) Pathologist [facility] Blue Top Tube Received 01/27/2025 2:47 PM EST [facility] Blood PERIPHERAL BLOOD SPECIMEN / Unknown Venipuncture / Unknown 01/27/2025 12:40 PM EST 01/27/2025 2:42 PM EST Leticia Gilmore MD LAB BLOOD ORDERABLES Final Resu lt Performing Organization Address [facility] Co de Phone Number [facility] [address] [place] [address] * (ABNORMAL) CBC and Differential (01/27/2025 12:40 PM EST) [facility] WBC 8.59 4.00 - 11.00 K/uL 01/27/2025 12:50 PM [facility] RBC 3.04(L) 4.10 - 5.60 M/uL 01/27/2025 12:50 PM [facility] Hemoglobin 8.9(L) 12.7 - 16.7 g/dL 01/27/2025 12:50 PM [facility] Hematocrit 27.6(L) 38.1 - 50.1 % 01/27/2025 12:50 PM [facility] MCH 29.3 23.0 - 37.0 pg 01/27/2025 12:50 PM [facility] MCHC 32.2 29.0 - 38.0 g/dL 01/27/2025 12:50 PM [facility] MCV 91 82 - 98 fL 01/27/2025 12:50 PM [facility] RDW 15.6(H) 11.5 - 14.5 % 01/27/2025 12:50 PM [facility] Platelet Count 295 150 - 450 K/uL 01/27/2025 12:50 PM [facility] MPV 10.2 6.0 - 14.0 fL 01/27/2025 12:50 PM [facility] Neutrophil 75.5 % 01/27/2025 12:50 PM [facility] Lymphocyte 11.6 % 01/27/2025 12:50 PM [facility] Monocyte 10.2 % 01/27/2025 12:50 PM [facility] Eosinophil 1.2 % 01/27/2025 12:50 PM [facility] Basophil 0.7 % 01/27/2025 12:50 PM [facility] Immature Granulocyte ([place], Myelo, Promyelocyte) 0.8 % 01/27/2025 12:50 PM [facility] Absolute Neutrophil Count 6.48 1.50 - 7.70 K/uL 01/27/2025 12:50 PM [facility] Absolute Immature Granulocyte ([place], Myelo, Promyelocyte) 0.07 0.00 - 0.09 K/uL 01/27/2025 12:50 PM [facility] Absolute Lymphocyte Count 1.00(L) 1.50 - 4.00 K/uL 01/27/2025 12:50 PM [facility] Absolute Monocyte Count 0.88 0.16 - 1.26 K/uL 01/27/2025 12:50 PM [facility] Absolute Eosinophil Count 0.10(L) 0.15 - 0.30 K/uL 01/27/2025 12:50 PM [facility] Absolute Basophil Count 0.06 0.00 - 0.21 K/uL 01/27/2025 12:50 PM [facility] Blood PERIPHERAL BLOOD SPECIMEN / Unknown Venipuncture / Unknown 01/27/2025 12:40 PM EST 01/27/2025 12:42 PM EST us Leticia Gilmore MD LAB BLOOD ORDERABLES Final Resu lt [facility] [address] [place] [address] * (ABNORMAL) Troponin (01/27/2025 12:40 PM EST) [facility] Troponin T HS 112(H) <52 ng/L 01/27/2025 1:17 PM EST [facility] Blood PERIPHERAL BLOOD SPECIMEN / Unknown Venipuncture / Unknown 01/27/2025 12:40 PM EST 01/27/2025 12:42 PM EST Leticia Gilmore MD LAB BLOOD ORDERABLES Final Resu lt Performing Organization Address [facility]/ZIP Co de Phone Number [facility] [address] [place] [address] * Magnesium (01/27/2025 12:40 PM EST) [facility] Magnesium, Blood 2.1 1.6 - 2.6 mg/dL 01/27/2025 1:17 PM EST [facility] Blood PERIPHERAL BLOOD SPECIMEN / Unknown Venipuncture / Unknown 01/27/2025 12:40 PM EST 01/27/2025 12:42 PM EST Leticia Gilmore MD LAB BLOOD ORDERABLES Final Resu lt Performing Organization Address [facility] Co de Phone Number [facility] [address] [place] [address] * (ABNORMAL) Basic Metabolic Panel (01/27/2025 12:40 PM EST) [facility] Sodium 137 135 - 146 mmol/L 01/27/2025 1:18 PM EST [facility] Potassium 6.0(H) 3.4 - 5.2 mmol/L 01/27/2025 1:18 PM EST [facility] Chloride 96(L) 98 - 110 mmol/L 01/27/2025 1:18 PM EST [facility] Total CO2/Bicarbonat e 23(L) 24 - 32 mmol/L 01/27/2025 1:18 PM EST [facility] Anion Gap 19(H) 2 - 15 mmol/L 01/27/2025 1:18 PM EST [facility] BUN 95(H) 7 - 24 mg/dL 01/27/2025 1:18 PM EST [facility] Creatinine, Blood 15.40(H) 0.60 - 1.30 mg/dL 01/27/2025 1:18 PM EST [facility] Glucose, Blood 113(H) 50 - 100 mg/dL 01/27/2025 1:18 PM EST [facility] Calcium 9.1 8.5 - 10.5 mg/dL 01/27/2025 1:18 PM EST [facility] Estimated GFR (MDRD) 3(L) >=60 mL/min/BSA 01/27/2025 1:18 PM EST [facility] Blood PERIPHERAL BLOOD SPECIMEN / Unknown Venipuncture / Unknown 01/27/2025 12:40 PM EST 01/27/2025 12:42 PM EST us Leticia Gilmore MD LAB BLOOD ORDERABLES Final Resu lt Performing Organization Address City/State/[facility] Co de Phone Number [facility] [address] [place] [phone] documented in this encounter Visit Diagnoses Diagnosis Acute hyperkalemia- Primary Hyperpotassemia History of noncompliance with medical treatment Personal history of noncompliance with medical treatment, presenting hazards to health Depression, unspecified depression type Alcohol use disorder Multiple falls Contusion of left knee, initial encounter Closed fracture of multiple ribs of right side, initial encounter Pleural effusion, right Unspecified pleural effusion Renal cyst, [place], hemorrhage Acute blood loss anemia Acute posthemorrhagic anemia Transaminitis Nonspecific elevation of levels of transaminase or lactic acid dehydrogenase (LDH) Effusion of left knee Tachycardia Unspecified tachycardia Abnormal electrocardiography Hyperkalemia Hyperpotassemia documented in this encounter Admitting Diagnoses Diagnosis Hyperkalemia Hyperpotassemia documented in this encounter Administered Medications Inactive Administered Medications - up to 3 most recent administrations Medication Order MAR Action Action Date Dose Rate Site acetaminophen (TYLENOL) tablet 650 mg 650 mg, Oral, Every 6 hours PRN, Starting on Adrianna 01/29/25 at 2359, Until Sun01/30/25 at 1730, mild (1-3) pain, headache, fever greater than 101 F Given 01/30/2025 12:06 AM EST 650 mg amLODIPine (NORVASC) tablet 2.5 mg 2.5 mg, Oral, Once, 1 dose, On Sun01/28/25 at 0830 Given 01/28/2025 8:03 AM EST 2.5 mg aspirin EC tablet 81 mg 81 mg, Oral, Daily, First dose on Sun01/27/25 at 1532, Until Discontinued Given 01/30/2025 8:26 AM EST 81 mg Given 01/29/2025 8:11 AM EST 81 mg Given 01/28/2025 8:02 AM EST 81 mg atorvaSTATin (LIPITOR) tablet 80 mg 80 mg, Oral, At bedtime, First dose on Sun01/27/25 at 2100, Until Discontinued Given 01/29/2025 9:47 PM EST 80 mg Given 01/28/2025 8:24 PM EST 80 mg Given 01/27/2025 8:26 PM EST 80 mg brexpiprazole (REXULTI) tablet 3 mg 3 mg, Oral, Daily, First dose on Sun01/27/25 at 1532 Given 01/30/2025 8:26 AM EST 3 mg Given 01/29/2025 8:11 AM EST 3 mg Given 01/28/2025 8:15 AM EST 3 mg calcium gluconate 1 g in 0.9% sodium chloride (NS) 50 mL premix 1 g, Intravenous, Once, 1 dose, On Sun01/27/25 at 1413 New Bag 01/27/2025 2:22 PM EST 1 g clopidogreL (PLAVIX) tablet 75 mg 75 mg, Oral, Daily, First dose on Sun01/27/25 at 1532, Until Discontinued Given 01/30/2025 8:26 AM EST 75 mg Given 01/29/2025 8:11 AM EST 75 mg Given 01/28/2025 8:03 AM EST 75 mg dextrose 50% (D50W) injection 25 g 50 mL (25 g), Intravenous, Once, 1 dose, On Sun01/27/25 at 1340 Given 01/27/2025 2:09 PM EST 50 mL epoetin naif-epbx (RETACRIT) injection 10,000 Units 10,000 Units Every Tu,Th,Sat, Intravenous, First dose on Sun01/27/25 at 2100 Given 01/27/2025 9:51 PM EST 10,000 Units epoetin naif-epbx (RETACRIT) injection 10,000 Units 10,000 Units Every Tu,Th,Sat, Intravenous, First dose (after last modification) on Sun01/29/25 at 0230 Given 01/29/2025 1:49 AM EST 10,000 Units ferrous sulfate tablet 325 mg 325 mg, Oral, Daily with breakfast, First dose on Sun01/28/25 at 0800, Until Discontinued Given 01/30/2025 8:26 AM EST 325 mg Given 01/29/2025 8:11 AM EST 325 mg Given 01/28/2025 8:02 AM EST 325 mg folic acid (FOLVITE) tablet 1 mg 1 mg, Oral, Daily, First dose on Sun01/27/25 at 1532, Until Discontinued Given 01/27/2025 4:23 PM EST 1 mg folic acid (FOLVITE) tablet 1 mg 1 mg, Oral, Daily, First dose on Sun01/27/25 at 1626, Until Discontinued Given 01/30/2025 8:26 AM EST 1 mg Given 01/29/2025 8:11 AM EST 1 mg Given 01/28/2025 8:02 AM EST 1 mg gabapentin (NEURONTIN) capsule 100 mg 100 mg, Oral, At bedtime, First dose on Sun01/28/25 at 2100, Until Discontinued Given 01/29/2025 9:47 PM EST 100 mg Given 01/28/2025 8:24 PM EST 100 mg heparin (porcine) injection 20,000 Units 20,000 Units, Intracatheter, Once, 1 dose, On Sun01/27/25 at 2130 Given 01/27/2025 10:37 PM EST 20,000 Units heparin (porcine) injection 20,000 Units 20,000 Units, Intracatheter, Once, 1 dose, On Sun01/29/25 at 0230 Given 01/29/2025 4:07 AM EST 20,000 Units heparin (porcine) injection 5,000 Units 5,000 Units, Subcutaneous, 2 times daily (heparin), First dose on Sun01/27/25 at 2100, Until Discontinued Given 01/30/2025 8:27 AM EST 5,000 Un its Given 01/29/2025 9:47 PM EST 5,000 Units Given 01/29/2025 8:11 AM EST 5,000 Units hydrOXYzine HCL (ATARAX) tablet 10 mg 10 mg, Oral, 3 times daily PRN, Starting on Sun01/29/25 at 1800, Until Sun01/30/25 at 1730, itching Given 01/29/2025 6:36 PM EST 10 mg insulin regular (HumuLIN R, NovoLIN R) 100 unit/mL injection 10 Units 10 Units, Intravenous, Once, 1 dose, On Sun01/27/25 at 1340 Given 01/27/2025 2:51 PM EST 10 Units iohexoL (OMNIPAQUE) 350 mg iodine/mL injection 100 mL 100 mL, Intravenous, Once in imaging, Starting on Sun01/27/25 at 1401, For 1 dose, Hydrate well prior to and following administration. Given 01/27/2025 2:01 PM EST 100 mL lamoTRIgine (LaMICtal) tablet 25 mg 25 mg, Oral, Daily, First dose on Sun01/27/25 at 1532, Until Discontinued Given 01/30/2025 8:26 AM EST 25 mg Given 01/29/2025 8:11 AM EST 25 mg Given 01/28/2025 8:02 AM EST 25 mg LORazepam (ATIVAN) tablet 1 mg 1 mg, Oral, Every 2 hour PRN, Starting on Sun01/27/25 at 1624, Until Sun01/28/25 at 1623, CIWA 8-15 Given 01/28/2025 1:28 PM EST 1 mg Given 01/28/2025 8:03 AM EST 1 mg LORazepam (ATIVAN) tablet 1 mg 1 mg, Oral, Every 4 hours PRN, Starting on Sun01/28/25 at 1624, Until Sun01/30/25 at 1623, CIWA 8-15 Given 01/30/2025 12:06 AM EST 1 mg Given 01/28/2025 4:33 PM EST 1 mg LORazepam (ATIVAN) tablet 2 mg 2 mg, Oral, Every 4 hours PRN, Starting on Sun01/28/25 at 1624, Until Sun01/30/25 at 1623, CIWA > 15 melatonin tablet 6 mg 6 mg, Oral, Every evening, First dose on Sun01/27/25 at 2100, Until Discontinued Given 01/29/2025 9:47 PM EST 6 mg Given 01/28/2025 8:24 PM EST 6 mg Given 01/27/2025 8:26 PM EST 6 mg metoprolol tartrate (LOPRESSOR) tablet 25 mg 25 mg, Oral, 2 times daily, First dose (after last modification) on Sun01/28/25 at 1500, Hold Parameters: HR, SBP, Hold for HR less than: 60 bpm, Hold for SBP less than: 100 mmHg Given 01/30/2025 8: 26 AM EST 25 mg Given 01/29/2025 9:47 PM EST 25 mg Given 01/29/2025 8:11 AM EST 25 mg Multivitamin with Minerals tablet 1 tablet 1 tablet, Oral, Daily, First dose on Sun01/27/25 at 1626, Until Discontinued Given 01/30/2025 8:26 AM EST 1 tablet Given 01/29/2025 8:11 AM EST 1 tablet Given 01/28/2025 8:03 AM EST 1 tablet OLANZapine (ZyPREXA) tablet 10 mg 10 mg, Oral, 2 times daily, First dose on Sun01/27/25 at 2100, Until Discontinued Given 01/30/2025 8:26 AM EST 10 mg Given 01/29/2025 9:47 PM EST 10 mg Given 01/29/2025 8:11 AM EST 10 mg pantoprazole (PROTONIX) DR tablet 40 mg 40 mg, Oral, 2 times daily, First dose on Sun01/27/25 at 2100, Until Discontinued Given 01/30/2025 8:26 AM EST 40 mg Given 01/29/2025 9:47 PM EST 40 mg Given 01/29/2025 8:11 AM EST 40 mg peripheral line: sodium chloride (NS) 0.9% flush 3 mL, Intravenous, Every 12 hours scheduled, First dose on Sun01/27/25 at 2100, Until Discontinued Given 01/30/2025 8:26 AM EST 3 mL Given 01/29/2025 9:47 PM EST 3 mL Given 01/29/2025 8:11 AM EST 3 mL peripheral line: sodium chloride 0.9 % (NS) flush 3 mL, Intravenous, Every 1 min PRN, Starting on Sun01/27/25 at 1530, Until Sun01/30/25 at 1730, line care Given 01/27/2025 8:33 PM EST 3 mL sertraline (ZOLOFT) tablet 100 mg 100 mg, Oral, 2 times daily, First dose on Sun01/27/25 at 2100, Until Discontinued Given 01/30/2025 8:26 AM EST 100 mg Given 01/29/2025 9:47 PM EST 100 mg Given 01/29/2025 8:11 AM EST 100 mg sevelamer carbonate (RENVELA) tablet 800 mg 800 mg, Oral, 3 times daily with meals, First dose on Sun01/27/25 at 1730, Until Discontinued Given 01/30/2025 12:23 PM EST 800 mg Given 01/30/2025 8:26 AM EST 800 mg Given 01/29/2025 4:41 PM EST 800 mg sodium bicarbonate 1 mEq/mL (8.4%) injection 50 mEq 50 mEq, Intravenous, Once, 1 dose, On Sun01/27/25 at 1340 Given 01/27/2025 2:09 PM EST 50 mEq sodium zirconium cyclosilicate (LOKELMA) powder packet 10 g 10 g, Oral, Once, 1 dose, On Sun01/27/25 at 1340 Given 01/27/2025 2:25 PM EST 10 g thiamine (B1) injection 200 mg 200 mg, Intravenous, Daily, First dose on Sun01/27/25 at 1325, If given IV Push, administer slow over 2-4 minutes. Given 01/27/2025 2:14 PM EST 200 mg thiamine (B1) injection 200 mg 200 mg, Intravenous, 2 times daily, First dose on Sun01/27/25 at 2100, For 3 days, If given IV Push, administer slow over 2-4 minutes. Given 01/30/2025 8:26 AM EST 200 mg Given 01/29/2025 9:47 PM EST 200 mg Given 01/29/2025 8:11 AM EST 200 mg thiamine tablet 100 mg 100 mg, Oral, Daily, First dose on Sun01/31/25 at 0900, Until Discontinued traZODone (DESYREL) tablet 50 mg 50 mg, Oral, Once, 1 dose, On Sun01/30/25 at 0030 Given 01/30/2025 12:06 AM EST 50 mg documented in this encounter Active and Recently Administered Medications Times are shown in EST. Scheduled Medication Order 01/28/2025 01/29/2025 01/30/2025 amLODIPine (NORVASC) tablet 2.5 mg (COMPLETED) 2.5 mg, Oral, Once, 1 dose, On Sun01/28/25 at 0830 0803 (Given - Provider: Lucrecia Frankel RN) aspirin EC tablet 81 mg 81 mg, Oral, Daily, First dose on Sun01/27/25 at 1532, Until Discontinued 801 (Given - Provider: Lucrecia Frankel RN) 08 (Given - Provider: Shayla Hill RN) 08 (Given - Provider: Shayla Hill RN) atorvaSTATin (LIPITOR) tablet 80 mg 80 mg, Oral, At bedtime, First dose on Sun01/27/25 at 2100, Until Discontinued 2023 (Given - Provider: Monica Gupta RN) 2146 (Given - Provider: Charlie Barahona RN) brexpiprazole (REXULTI) tablet 3 mg 3 mg, Oral, Daily, First dose on Sun01/27/25 at 1532 0815 (Given - Provider: Lucrecia Frankel RN) 08 (Given - Provider: Shayla Hill RN) 08 (Given - Provider: Shayla Hill RN) clopidogreL (PLAVIX) tablet 75 mg 75 mg, Oral, Daily, First dose on Sun01/27/25 at 1532, Until Discontinued 802 (Given - Provider: Lucrecia Frankel RN) 08 (Given - Provider: Shayla Hill RN) 08 (Given - Provider: Shayla Hill RN) epoetin naif-epbx (RETACRIT) injection 10,000 Units 10,000 Units Every ,Th,Sat, Intravenous, First dose (after last modification) on Sun01/29/25 at 0230 0149 (Given - Provider: Pinky Nichols RN) ferrous sulfate tablet 325 mg 325 mg, Oral, Daily with breakfast, First dose on Sun01/28/25 at 0800, Until Discontinued 801 (Given - Provider: Lucrecia Frankel RN) 08 (Given - Provider: Shayla Hill RN) 08 (Given - Provider: Shayla Hill RN) folic acid (FOLVITE) tablet 1 mg(Linked Group 1) 1 mg, Oral, Daily, First dose on Sun01/27/25 at 1626, Until Discontinued 08 (Given - Provider: Lucrecia Frankel RN) 08 (Given - Provider: Shayla Hill RN) 08 (Given - Provider: Shayla Hill RN) gabapentin (NEURONTIN) capsule 100 mg 100 mg, Oral, At bedtime, First dose on Sun01/28/25 at 2100, Until Discontinued 2023 (Given - Provider: Monica Gupta RN) 2146 (Given - Provider: Charlie Barahona RN) heparin (porcine) injection 20,000 Units (COMPLETED) 20,000 Units, Intracatheter, Once, 1 dose, On Sun01/29/25 at 0230 0407 (Given - Provider: Pinky Nichols RN) heparin (porcine) injection 5,000 Units 5,000 Units, Subcutaneous, 2 times daily (heparin), First dose on Sun01/27/25 at 2100, Until Discontinued 802 (Given - Provider: Lucrecia Frankel RN)2024 (Given - Provider: Mnoica Gupta RN) 810 (Given - Provider: Shayla Hill RN)2146 (Given - Provider: Charlie Barahona, AVELINO) 826 (Given - Provider: Shayla Hill RN) lamoTRIgine (LaMICtal) tablet 25 mg 25 mg, Oral, Daily, First dose on Sun01/27/25 at 1532, Until Discontinued 08 (Given - Provider: Lucrecia Frankel RN) 08 (Given - Provider: Shayla Hill RN) 08 (Given - Provider: Shayla Hill RN) melatonin tablet 6 mg 6 mg, Oral, Every evening, First dose on Sun01/27/25 at 2100, Until Discontinued 2023 (Given - Provider: Monica Gupta RN) 2146 (Given - Provider: Charlie Barahona RN) metoprolol tartrate (LOPRESSOR) tablet 25 mg 25 mg, Oral, 2 times daily, First dose (after last modification) on Sun01/28/25 at 1500, Hold Parameters: HR, SBP, Hold for HR less than: 60 bpm, Hold for SBP less than: 100 mmHg 1415 (Given - Provider: Lucrecia Frankel RN) 810 (Given - Provider: Shayla Hill RN)2146 (Given - Provider: Charlie Barahona, AVELINO) 825 (Given - Provider: Shayla Hill RN) Multivitamin with Minerals tablet 1 tablet(Linked Group 1) 1 tablet, Oral, Daily, First dose on Sun01/27/25 at 1626, Until Discontinued 08 (Given - Provider: Lucrecia Frankel RN) 810 (Given - Provider: Shayla Hill RN) 825 (Given - Provider: Shayla Hill RN) OLANZapine (ZyPREXA) tablet 10 mg 10 mg, Oral, 2 times daily, First dose on Sun01/27/25 at 2100, Until Discontinued 08 (Given - Provider: Lucrecia Frankel RN)2022 (Given - Provider: Monica Gupta RN) 810 (Given - Provider: Shayla Hill RN)2146 (Given - Provider: Charlie Barahona RN) 825 (Given - Provider: Shayla Hill RN) pantoprazole (PROTONIX) DR tablet 40 mg 40 mg, Oral, 2 times daily, First dose on Sun01/27/25 at 2100, Until Discontinued 08 (Given - Provider: Lucrecia Frankel RN)2022 (Given - Provider: Monica Gupta RN) 810 (Given - Provider: Shayla Hill RN)2146 (Given - Provider: Charlie Barahona RN) 825 (Given - Provider: Shayla Hill RN) peripheral line: sodium chloride (NS) 0.9% flush(Linked Group 2) 3 mL, Intravenous, Every 12 hours scheduled, First dose on Sun01/27/25 at 2100, Until Discontinued 803 (Given - Provider: Lucrecia Frankel RN)2034 (Not Given - Provider: Monica Gupta RN - Reason: Order parameters not met - Comment: needs new iv) 810 (Given - Provider: Shayla Hill RN)2146 (Given - Provider: Charlie Barahona RN) 825 (Given - Provider: Shayla Hill RN) sertraline (ZOLOFT) tablet 100 mg 100 mg, Oral, 2 times daily, First dose on Sun01/27/25 at 2100, Until Discontinued 08 (Given - Provider: Lucrecia Frankel RN)2022 (Given - Provider: Monica Gupta RN) 08 (Given - Provider: Shayla Hill RN)2146 (Given - Provider: Charlie Barahona, AVELINO) 08 (Given - Provider: Shayla Hill RN) sevelamer carbonate (RENVELA) tablet 800 mg 800 mg, Oral, 3 times daily with meals, First dose on Sun01/27/25 at 1730, Until Discontinued 08 (Given - Provider: Lucrecia Frankel RN)1147 (Given - Provider: Lucrecia Frankel RN)1634 (Given - Provider: Lucrecia Frankel RN) 08 (Given - Provider: Shayla Hill RN)1216 (Given - Provider: Shayla Hill RN)1641 (Given - Provider: Gloria Duffy RN) 08 (Given - Provider: Shayla Hill RN)1223 (Given - Provider: Shayla Hill RN)1730 (Canceled Entry - Provider: Automatic Discharge Provider - Comment: Automatically canceled at discontinue of medication order) thiamine (B1) injection 200 mg(Linked Group 3) 200 mg, Intravenous, 2 times daily, First dose on Sun01/27/25 at 2100, For 3 days, If given IV Push, administer slow over 2-4 minutes. 08 (Given - Provider: Lucrecia Frankel RN)2024 (Not Given - Provider: Monica Gupta RN - Reason: Order parameters not met)2034 (Not Given - Provider: Monica Gupta RN - Reason: Order parameters not met - Comment: needs new IV/No IV) 810 (Given - Provider: Shayla Hill RN)2146 (Given - Provider: Charlie Barahona, AVELINO) 08 (Given - Provider: Shayla Hill RN) thiamine tablet 100 mg(Linked Group 3) 100 mg, Oral, Daily, First dose on Sun01/31/25 at 0900, Until Discontinued traZODone (DESYREL) tablet 50 mg (COMPLETED) 50 mg, Oral, Once, 1 dose, On Sun01/30/25 at 0030 0006 (Given - Provid er: Charlie Barahona RN) PRN Medication Order 01/28/2025 01/29/2025 01/30/2025 acetaminophen (TYLENOL) tablet 650 mg 650 mg, Oral, Every 6 hours PRN, Starting on Sun01/29/25 at 2359, Until Sun01/30/25 at 1730, mild (1-3) pain, headache, fever greater than 101 F 0006 (Given - Provider: Charlie Barahona RN) hydrOXYzine HCL (ATARAX) tablet 10 mg 10 mg, Oral, 3 times daily PRN, Starting on Sun01/29/25 at 1800, Until Sun01/30/25 at 1730, itching 1836 (Given - Provider: Gloria Duffy RN) LORazepam (ATIVAN) tablet 1 mg ()(Linked Group 4) 1 mg, Oral, Every 2 hour PRN, Starting on Sun01/27/25 at 1624, Until Sun01/28/25 at 1623, CIWA 8-15 0803 (Given - Provider: Lucrecia Frankel RN)1328 (Given - Provider: Lucrecia Frankel RN)1634 (Not Given - Provider: Lucrecia Frankel RN - Reason: Other - Indicate below - Comment: scanned for q4h dose) LORazepam (ATIVAN) tablet 1 mg(Linked Group 4) 1 mg, Oral, Every 4 hours PRN, Starting on Sun01/28/25 at 1624, Until Sun01/30/25 at 1623, CIWA 8-15 1633 (Given - Provider: Lucrecia Frankel RN) 0006 (Given - Provider: Charlie Barahona RN) LORazepam (ATIVAN) tablet 2 mg(Linked Group 5) 2 mg, Oral, Every 4 hours PRN, Starting on Sun01/28/25 at 1624, Until Sun01/30/25 at 1623, CIWA > 15 midodrine (PROAMATINE) tablet 2.5 mg 2.5 mg, Oral, Daily PRN, Starting on Sun01/27/25 at 1530, Until Sun01/30/25 at 1730, sbp <100mm Hg peripheral line: sodium chloride 0.9 % (NS) flush(Linked Group 2) 3 mL, Intravenous, Every 1 min PRN, Starting on Sun01/27/25 at 1530, Until Sun01/30/25 at 1730, line care Linked Groups Order Group 1: Multivitamin with Minerals tablet 1 tabletJump to med 1 tablet, Oral, Daily, First dose on Sun01/27/25 at 1626, Until Discontinued And folic acid (FOLVITE) tablet 1 mgJump to med 1 mg, Oral, Daily, First dose on Sun01/27/25 at 1626, Until Discontinued Group 2: Insert and Maintain Peripheral IV (CANCELED) Routine, Continuous, Starting on Sun01/27/25 at 1531, Until Specified And peripheral line: sodium chloride (NS) 0.9% flushJump to med 3 mL, Intravenous, Every 12 hours scheduled, First dose on Sun01/27/25 at 2100, Until Discontinued And peripheral line: sodium chloride 0.9 % (NS) flushJump to med 3 mL, Intravenous, Every 1 min PRN, Starting on Sun01/27/25 at 1530, Until Sun01/30/25 at 1730, line care Group 3: thiamine (B1) injection 200 mgJump to med 200 mg, Intravenous, 2 times daily, First dose on Sun01/27/25 at 2100, For 3 days, If given IV Push, administer slow over 2-4 minutes. Followed by thiamine tablet 100 mgJump to med 100 mg, Oral, Daily, First dose on Sun01/31/25 at 0900, Until Discontinued Group 4: LORazepam (ATIVAN) tablet 1 mg ()Jump to med 1 mg, Oral, Every 2 hour PRN, Starting on Sun01/27/25 at 1624, Until Sun01/28/25 at 1623, CIWA 8-15 Followed by LORazepam (ATIVAN) tablet 1 mgJump to med 1 mg, Oral, Every 4 hours PRN, Starting on Sun01/28/25 at 1624, Until Sun01/30/25 at 1623, CIWA 8-15 Group 5: LORazepam (ATIVAN) tablet 2 mg () 2 mg, Oral, Every 2 hour PRN, Starting on Sun01/27/25 at 1624, Until Sun01/28/25 at 1623, CIWA > 15 Followed by LORazepam (ATIVAN) tablet 2 mgJump to med 2 mg, Oral, Every 4 hours PRN, Starting on Sun01/28/25 at 1624, Until Sun01/30/25 at 1623, CIWA > 15 documented in this encounter Additional Health Concerns Infection Onset Date Last Indicated Resolved Time Rule-Out Respiratory Virus 01/27/2025 01/27/2025 1 03/29/2024 2:59 PM EST documented as of this encounter Care Teams Retail Presentation Specialist Relationship Specialty Start Date End Date System, Provider Not In PCP - General 07/30/24 01/30/25 documented as of this encounter
--- OUTSIDE RECORDS SUMMARY | 2025-01-31 16:42 | XMS_ITS | Encounter Summary ---
Author Organization [facility] Address [address] [place], [place] [address] Care Team Providers Care Salon Stylist Name Role Phone Unknown, Provider Primary Care Provider Unava ilable Reason for Visit * Reason Comments Fatigue * Auth/Cert (Routine) Specialty Diagnoses / Procedures Referred By Contac t Referred To Contact Diagnoses Acute on chronic respiratory failure with hypoxia and hypercapnia (CMS-HCC) Procedures . Joselito Soni DO [address] [place] [address] Phone: tel: fax: Referral ID Status Reason Start Date Expiration Date Visits Re quested Visits Authorized [id number] 1 1 Encounter Details Date Type Department Care Team (Late st Contact Info) Description 01/31/2025 4:42 PM EST - 02/02/2025 10:20 AM [facility] Hospital Encounter [place] [facility] [address] [place] [phone] Wilfredo Taveras DO [address] [place] [id number] Anabelle Young MD [address] [place] [phone] Joselito Soni DO [address] [place] [phone] Luciana Kilgore MD [address] [place] [id number] Gelacio Garcia MD [address] [place] [address] HAP (hospital-acquired pneumonia) (Primary Dx); Acute hypercapnic respiratory failure (CMS-HCC) Discharge Disposition: Home or Self Care Social History Tobacco Use Types Packs/Day Years [...] and Family Not on file 03/10/2024 Attends [employer] Services Not on file 03/10 Active Member [...] afraid of your partner or ex-partner? No 02/01/2025 Emotionally Abused Not on file 02/01/2025 Physically Abused Not on file 02/01/2025 Sexually Abused Not on file 02/01/2025 AUDIT-C Answer Date Recorded Q1: How often [...] like food, housing, medical care, and heating? Hard 02/01/2025 [facility] [place] [facility] Occupat ional Health - Occupational Stress Questionnaire Answer Date [...] the money to buy more. Never true 02/02/20 Ran Out of Food in the Last Year Not on file 02/01/2025 PRAPARE - Transportation Answer Date Re corded In the past 12 months, has l ack of transportation kept you from medical appointments or from getting medications? No 11/2024 In the past 12 months, has l ack of transportation kept you from meetings, work, or from getting things needed for daily living? No 02/01/2025 Housing Stability Vital Sign Answer Pascual e Recorded In the last 12 months, was t here a time when you were not able to pay the mortgage or rent on time? Yes 02/01/2025 Number of Times Moved in the Last Year Not on fi le 02/01/2025 At any time in the past 12 m [facility], were you homeless or living in a detention (including now)? Yes 02/01/2025 B1300 Health Literacy Answer Date Recor ded How often do you need to hav e someone help you when you read instructions, pamphlets, or other written material from your doctor or pharmacy? Sometimes 01/28/2025 [facility] Utilities Answer Date Recorded In the past 12 months has th e ProtAb, gas, oil, or water [employer] threatened to shut off services in your home? Yes 02/01/2025 Food Insecurity Answer Date Recorded Within the past 12 months, y ou worried that your food would run out before you got the money to buy more. Never true 02/02/20 Within the past 12 months, t he food you bought just didn't last and you didn't have money to get more. Never true 02/01/2025 Intimate Partner Violence Answer Date R ecorded Within the last year, have y ou been humiliated or emotionally abused in other ways by your partner or ex-partner? No Within the last year, have y ou been afraid of your partner or ex-partner? No 02/01/2025 Within the last year, have y ou been kicked, hit, slapped, or otherwise physically hurt by your partner or ex-partner? No 02/01/2025 Within the last year, have y ou been raped or forced to have any kind of sexual activity by your partner or ex-partner? No 02/01/2025 Housing Stability Answer Date Recorded Unstable Housing in the Last Year Not on file 02/01/2025 In the last 12 months, was t here a time when you were not able to pay the mortgage or rent on time? Yes 02/01/2025 [address] Lived in the Last Year Not on f ile 02/01/2025 AUDIT C Answer Date Recorded How often have you had a dri nk containing alcohol, in the past year? 4 02/01/2025 How many standard drinks con taining alcohol have you had on a typical day when you are drinking, in the past year? 3 1 04/03/2024 How often have you had six o r more drinks on one occasion, in the past year? 4 02/01/2025 Sex and Gender Information Value Date Recorded [...] Sign Reading Time Taken Comments Blood Pressure 133/89 02/02/2025 3:43 AM EST Pulse 99 02/01/2025 11:18 PM EST Temperature 36.8 C (98.2 F) 02/02/2025 3:43 AM EST Respiratory Rate 18 02/02/2025 3:43 AM EST Oxygen Saturation 94% 02/02/2025 3:43 AM EST Inhaled Oxygen Concentration - - Weight 79.4 kg (175 lb) 01/31/2025 5:46 PM EST Height 177.8 cm (5' 10 ) 01/31/2025 5:46 PM EST Body Mass Index 25.11 01/31/2025 5:46 PM EST documented in this encounter Functional Status * Are you deaf or do you have serious difficulty hearing? Answer Date of Assessment Author No 01/31/2025 4:50 PM Sandy Lundy * Are you blind or do you have serious difficulty seeing, even when wearing glasses? Answer Date of Assessment Author No 01/31/2025 4:50 PM Sandy Lundyine * Do you have serious difficulty walking or climbing stairs? Answer Date of Assessment Author Yes 01/31/2025 4:50 PM Sandy Lundyine * Do you have difficulty dressing or bathing? Answer Date of Assessment Author No 01/31/2025 4:50 PM Sandy Lundyine * Because of a physical, mental, or emotional condition, do you have difficulty doing errands alone such as visiting the doctor? Answer Date of Assessment Author No 01/31/2025 4:50 PM Sandy Lundy documented as of this encounter Mental Status * Because of a physical, mental, or emotional condition, do you have serious difficulty concentrating, remembering, or making decisions? Answer Entry Date Author No 01/31/2025 4:50 PM Sandy Lundy documented in this encounter Discharge Instructions * Attachments The following attachments cannot be sent through Care Everywhere. * Planning to Quit Smoking ([place]) documented in this encounter Medications at Time [...] every 6 hours as needed for pain. metoprolol tartrate (LOPRESSOR) 25 MG tablet Take 0.5 tablets (12.5 mg total) by mouth in the morning and 0.5 tablets (12.5 mg total) before bedtime. 30 tablet 01/30/2025 documented as of this encounter Progress Notes * Wilfredo Crespo RN - 02/02/2025 8:51 AM EST Pt requested to leave AMA, risk and benefit discussed with pt and pt teaching done by RN. Dr Garcia notified via secured chat and was fine with pt leaving AMA. AMA form signed and in pt's chat * Nely Macias CM - 02/01/2025 5:10 PM EST Case Management - Progress Note Patient: Sushant Christianson : 1960 Attending: Gelacio Garcia MD Admit Date: 01/31/2025 Inpatient Status Admit Date: 02/01/25 Primary Care Physician: Provider MD Naldo Case Management review. SW consult pending. 65 yo male found down in a hotel room. Toxicology positive for cocaine. Pt self reports etoh abuse CIWA in place. Pt missed last 2 HD sessions. Received 3 hrs urgent HD for volume overload while in ED. Pts scheduled HD is T at [facility] in [place] He is Active with [facility], h/o care [place]. SW consult pending Nely Macias CM 02/01/2025 * aMrgarita Lopez RN - 02/01/2025 1:32 PM EST Went over meds with patient, able to confidently state most of what he takes but feels he is not taking a few of them such as atorvastatin and metoprolol. Both have recent dispenses within the last 2weeks * Margarita Lopez RN - 02/01/2025 12:00 PM EST Admit RN Note: Pt is a 65 y/oM. Presenting from hotel room. A&Ox2 and uses a cane for mobility. PMH: ESRD on HD (, sun), polysubstance abuse with cocaine and alcohol, COPD, h/o alcohol withdrawal syndrome and DT's Presented to the ER after being found on the ground in a hotel room after consuming an unknown quantity of alcohol and crack . Reported missing 2 dialysis appointments. Multiple recent admissions, last 01/27-01/30/2025 ER admission: Pt found to be hypoxic and required high flow NC. Hyperkalemic, elevated kidney function compared to basline, VBG opH of 7.24 that improved to 7.3. Received lokelma, calcium gluconate, d50 with insulin in ER CXR shows small LISA pleural effusions CT head negative Plan to admit to [facility] for acute hypoxic respiratory failure, sepsis, HAP Pt having high CIWA in ER boarding. Given po ativan. Receiving dialysis at time of admission assessment. * Loren Blair RRT - 01/31/2025 9:42 PM EST 01/31/25 2142 Oxygen Therapy/Pulse Ox O2 Device Heated High Flow Nasal Cannula O2 Therapy Oxygen humidified O2 Flow Rate (L/min) 45 L/min FiO2 (%) 21 % SpO2 97 % $Spot Check Charge (SWEDGER) Yes High Flow ID Airvo * Initial HFNC Setup 23 * HFNC Assessment 7 H2O Level Vent (Hi flow) Full Heater Temperature Hi michael F(C) 87.8 ??F (31 ??C) Supplemental Gases None Will continue to monitor and make adjust as clinically indicated. documented in this encounter H&P Notes * Joselito Soni DO - 02/01/2025 1:02 AM EST HISTORY AND PHYSICAL Date of Service: 02/01/25 Patient: Sushant Christianson : 1960 CSN: [id number] Attending: Joselito Soni DO Admit Date: 01/31/2025 Inpatient Status Admit Date: 02/01/25 Primary Care Physician: Jose Hitchcock MD None Subjective CHIEF COMPLAINT: fatigue HISTORY OF PRESENT ILLNESS: Patient Sushant Christianson is a 65 y.o. male with a known past medical history of ESRD on HD (tue, thdejuan, sat), polysubstance abuse with cocaine and alcohol, COPD, h/o alcohol withdrawal syndrome and DT's presents via EMS after being found down in hotel room in pile of trash. He reports alcohol use. Onreview of ER note, unable to quantify the amount he has consumed over the past 24 hours since he was discharged . Other substance use includes smoking crack . He reports he has been in detox programs in the past. His girlfriend has voiced concern for him and he is requesting help with detox at this time. He reports he may have fallen earlier, he is unsure. He does not have any pain at this time. He reports his shortness of breath is improving after treatments given in the ER as noted below. Primary concern at time of visit is dry mouth due to being thirsty. Chronic cough unchanged from baseline (reports is in setting of smoking). He previously had diarrhea for approximately the past 2 weeks, not recently. No known fevers, abdominal pain, dysuria. He missed his dialysis appointments on and Sunday/date of admission (01/31/2025). Of note, patient recently hospitalized from 12/26 - 01/14/2025 for hypotension suspected due to overdiuresis, volume depletion, home Coreg held and started on midodrine as needed. Condition improved and discharged. Hospitalized from 01/27/25 to 01/30/25 for similar presentation above. ER Course: Vital signs reviewed and findings include oxygen saturation to 88%, initially on nasal cannula and then transition to high flow nasal cannula. Labs reviewed and findings include potassium 5.7, creatinine 9.3 (on chart review elevated compared to prior on 01/30 of 7.1), anion gap 16, glucose 102, procalcitonin 1.4, WBC 12.3, hemoglobin 8.4 (on chart review mildly improved compared to prior 01/30/25 of 8.0). VBG results initially with pH 7.24 with improvement to 7.3, pCO2 initially 60 with improvement to 49 EKG findings include normal sinus rhythm, right bundle branch block (present onprior EKG on review), final read pending. Given calcium gluconate 1 g IV, D50 with 5 units insulin,Lokelma, Solu-Medrol 25 mg IV, dose of vancomycin and Zosyn. Placed on CIWA Imaging findings include: CT head without contrast impression No acute intracranial abnormalities are detected. No evidence of acute intracranial hemorrhage or large vessel territorial infarct. Chest x-ray impression Low lung volumes. No lobar infiltrate. Probable small bilateral pleural effusions. In ER, case discussed with specialist with nephrology, Dr. Scherer, appreciate recommendations Lokelma, insulin, dextrose, calcium and will plan for dialysis 02/01/25 Case discussed with ER provider and accepted for admission Review of systems: All other systems were reviewed and were negative. History: has a past medical history of Alcohol dependence ([facility]), Alcoholic fatty liver (11/22/2020), Anemia of chronic disease (02/22/2022), Anxiety and depression (11/22/2020), Bacteremia (10/17/2022), Kruse's esophagus without dysplasia (12/24/2019), BPH with urinary obstruction (10/10/2018), Chronic obstructive pulmonary disease, unspecified ([facility]) (11/22/2020), CKD (chronic kidney disease), ESRD (end stage renal disease) ([facility]) (11/02/2022), Gastro- esophageal reflux disease without esophagitis (11/22/2020), HCAP (healthcare- associated pneumonia) (06/18/2022), Hyperlipidemia, Hypertension, 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 has a past surgical history that includes arm surgery (Left) and Interventional radiology procedure(N/A, 08/06/2023). 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 Family History: family history includes Depression in his father; Diabetes in his mother; Thyroid disease in his mother. Medications: The medication reconciliation is a dynamic process. To the best of the real estate underwriter's knowledge, these were the medications the patient was on prior to admission but may be subject to change as more information becomes available. Prior to Admission medications Medication Sig Start [...] 30 days. 04/21/24 12/26/24 Nydia England MD clopidogreL (PLAVIX) 75 mg tablet Take 1 tablet (75 mg total) by mouth daily for 20 days. 04/22/24 12/26/24 Nydia England MD ferrous sulfate 324 mg (65 mg iron) TbEC Take 1 tablet (324 mg total) by mouth daily with breakfast. Historical Provider, folic acid (FOLVITE) 1 MG tablet Take 1 tablet (1 mg total) by mouth daily. 02/28/23 Jacque Berg MD gabapentin (NEURONTIN) 100 MG capsule Take 1 capsule (100 mg total) by mouth at bedtime. 01/30/25 Gelacio Garcia MD hydrOXYzine HCL (ATARAX) 10 MG tablet [...] mouth every evening. 03/12/24 Jonathan Lopez MD metoprolol tartrate (LOPRESSOR) 25 MG tablet Take 0.5 tablets (12.5 mg total) by mouth in the morning and 0.5 tablets (12.5 mg total) before bedtime. 01/30/25 Gelacio Garcia MD midodrine (PROAMATINE) 2.5 MG tablet Take [...] by mouth in the morning. 12/06/23 Historical ProviderMD sertraline (ZOLOFT) 100 MG tablet Take 1 [...] mouth in the morning. 07/16/23 Historical Provider, Objective Min/Max vitals over last 24 hours: BP Min: 90/49 Max: 129/90 Temp Min: 98.1 ??F (36.7 ??C) Max: 98.2 ??F (36.8 ??C) Pulse Min: 76 Max: 101 Resp Min: 13 Max: 15 SpO2 Min: 88 % Max: 100 % Weight Min: 79.4 kg (175 lb) Max: 79.4 kg (175 lb) PHYSICAL EXAM: GENERAL: The patient is awake, appropriately conversant, alert, oriented to time, place, person, inno acute distress. HEENT: Pupils are equal and reactive. EOMI grossly. No pallor or icterus. No signs of trauma or lesions, No scleral or conjunctival injection, No nasal discharge or congestion, no obvious oral lesions, good dentition, moist mucous membranes Neck: No tenderness or deformities of cervical spine HEART: RRR, S1/S2 appreciated, no MRG LUNGS: Auscultation of the lungs revealed normal breath sounds without any other adventitious sounds or rubs. ABDOMEN: Soft, nontender, non distended EXTREMITIES: No cyanosis, clubbing, or edema Back: No tenderness or deformities of thoracic or lumbar spine NEURO: alert, answering questions appropriately, moving all extremities symmetrically, grossly intact strength tone symmetrical, following commands SKIN: warm and dry PSYCH: Normal mood and affect. Radiology: Recent imaging studies have been reviewed. Results for orders placed or performed during the hospital encounter of 01/31/25 CT Head WO Contrast Narrative EXAM DESCRIPTION: CT HEAD WO CONTRAST CLINICAL HISTORY: Found down. Dialysis patient. ETOH intoxication. COMPARISON: 01/27/2025. TECHNIQUE: Thin section axial images through the head were performed. Coronal reconstructions were also obtained. To my knowledge the head CT was performed within 24 hours of the patient's arrival. FINDINGS: Ventricles and sulci: The ventricles, cisterns, and sulci are moderately enlarged compatible with age-related tissue loss. Cerebral/cerebellar hemispheres: There is no evidence of acute large vessel territorial infarction. There is no intracranial hemorrhage No significant white matter disease is present. There is no mass effect or midline shift. Extra-axial spaces: There is no abnormal extra-axial fluid. Vascular: No significant calcification in intracranial arteries Globes/paranasal sinuses: The globes are intact The visualized paranasal sinuses and mastoid air cells are aerated Bones/soft tissues: There is no displaced calvarial fracture There is no significant soft tissue swelling. Impression No acute intracranial abnormalities are detected. No evidence of acute intracranial hemorrhage or large vessel territorial infarct. XR Chest 1 Vw Portable Narrative EXAM DESCRIPTION: XR CHEST 1 VW PORTABLE 01/31/2025 6:54 pm CLINICAL HISTORY: Found down. ETOH intoxication COMPARISON: 12/26/2024. TECHNIQUE: Single AP portable view of the chest. FINDINGS: No lines and tubes are identified. There is a dialysis catheter entering from the right IJ terminating in the right atrium. Line appears well-positioned. No pneumothorax. The costophrenic angles are clear. No pleural effusions. No pneumothorax is identified. Low lung volumes with probable small bilateral pleural effusions. No focal infiltrate. The bones and soft tissues appear normal for age. Impression Low lung volumes. No lobar infiltrate. Probable small bilateral pleural effusions. Laboratory: All recent labs have been reviewed. Recent Results (from the past 12 hours) Comprehensive Metabolic Panel Collection Time: 01/31/25 5:06 PM Result Value Ref Range Sodium 141 135 - 146 mmol/L Potassium 5.7 (H) 3.4 - 5.2 mmol/L Chloride 103 98 - 110 mmol/L Total CO2/Bicarbonate 22 (L) 24 - 32 mmol/L Anion Gap 16 (H) 2 - 15 mmol/L BUN 59 (H) 7 - 24 mg/dL Creatinine, Blood 9.30 (H) 0.60 - 1.30 mg/dL Glucose, Blood 102 (H) 50 - 100 mg/dL Calcium 9.3 8.5 - 10.5 mg/dL Total Protein 7.4 6.2 - 8.2 g/dL Albumin, Blood 4.0 3.4 - 5.2 g/dL Globulin Result 3.4 2.0 - 4.0 g/dL AST (SGOT) 19 11 - 40 U/L ALT (SGPT) 16 7 - 40 U/L Alkaline Phosphatase 267 (H) 30 - 115 U/L Total Bilirubin 0.3 0.2 - 1.2 mg/dL Estimated GFR (MDRD) 6 (L) >=60 mL/min/BSA CBC and Differential Collection Time: 01/31/25 5:06 PM Result Value Ref Range WBC 12.83 (H) 4.00 - 11.00 K/uL RBC 2.90 (L) 4.10 - 5.60 M/uL Hemoglobin 8.4 (L) 12.7 - 16.7 g/dL Hematocrit 27.4 (L) 38.1 - 50.1 % MCH 29.0 23.0 - 37.0 pg MCHC 30.7 29.0 - 38.0 g/dL MCV 95 82 - 98 fL RDW 16.0 (H) 11.5 - 14.5 % Platelet Count 336 150 - 450 K/uL MPV 10.2 6.0 - 14.0 fL Neutrophil 74.0 % Lymphocyte 13.2 % Monocyte 7.2 % Eosinophil 2.7 % Basophil 0.7 % Immature Granulocyte ([place], Myelo, Promyelocyte) 2.2 % Absolute Neutrophil Count 9.51 (H) 1.50 - 7.70 K/uL Absolute Immature Granulocyte ([place], Myelo, Promyelocyte) 0.28 (H) 0.00 - 0.09 K/uL Absolute Lymphocyte Count 1.69 1.50 - 4.00 K/uL Absolute Monocyte Count 0.92 0.16 - 1.26 K/uL Absolute Eosinophil Count 0.34 (H) 0.15 - 0.30 K/uL Absolute Basophil Count 0.09 0.00 - 0.21 K/uL Alcohol Collection Time: 01/31/25 5:06 PM Result Value Ref Range Alcohol <10 <10 mg/dL CK (Creatine Kinase) Collection Time: 01/31/25 5:06 PM Result Value Ref Range Creatine Kinase Total (CK) 44 30 - 194 U/L Procalcitonin Collection Time: 01/31/25 5:06 PM Result Value Ref Range Procalcitonin 1.40 (H) <0.15 ng/mL POCT Glucose Collection Time: 01/31/25 5:12 PM Result Value Ref Range Glucose, POC 101 70 - 118 mg/dL ECG 12 lead Collection Time: 01/31/25 5:14 PM Result Value Ref Range Ventricular Heart Rate 83 BPM Atrial Heart Rate 83 BPM NC Interval 206 ms QRSD Interval 142 ms QT Interval 396 ms QTC Interval 465 ms P [place] 52 degrees R [place] -60 degrees T Wave [place] 33 degrees Venous Blood Gas Collection Time: 01/31/25 8:26 PM Result Value Ref Range FLOW RATE 3.0 Method,O2 Admin OXY-Mask pH, Venous 7.24 (L) 7.32 - 7.42 pCO2, Venous 60 (H) 38 - 49 mmHg pO2, Venous 44 No Reference Range mmHg HCO3, Venous 26 18 - 32 mmol/L % O2Hb, Venous 72 No Established Reference Range % Base Excess, Venous -1.9 (L) 0.0 - 3.0 mmol/L Carboxyhemoglobin, VBG 1.8 (H) 0.5 - 1.5 % Methemoglobin, VBG 1.4 (H) <1.0 % Patient Temperature 98.0 Venous Blood Gas Collection Time: 01/31/25 10:32 PM Result Value Ref Range FLOW RATE 45.0 FIO2 21 % Method,O2 Admin Hi-Flow pH, Venous 7.26 (L) 7.32 - 7.42 pCO2, Venous 54 (H) 38 - 49 mmHg pO2, Venous 38 No Reference Range mmHg HCO3, Venous 25 18 - 32 mmol/L % O2Hb, Venous 65 No Established Reference Range % Base Excess, Venous -2.5 (L) 0.0 - 3.0 mmol/L Carboxyhemoglobin, VBG 1.9 (H) 0.5 - 1.5 % Methemoglobin, VBG 1.3 (H) <1.0 % Patient Temperature 98.0 Venous Blood Gas Collection Time: 02/01/25 12:25 AM Result Value Ref Range FLOW RATE 45.0 FIO2 21 % Method,O2 Admin Hi-Flow pH, Venous 7.30 (L) 7.32 - 7.42 pCO2, Venous 49 38 - 49 mmHg pO2, Venous 51 No Reference Range mmHg HCO3, Venous 24 18 - 32 mmol/L % O2Hb, Venous 82 No Established Reference Range % Base Excess, Venous -2.5 (L) 0.0 - 3.0 mmol/L Carboxyhemoglobin, VBG 1.8 (H) 0.5 - 1.5 % Methemoglobin, VBG 1.4 (H) <1.0 % Patient Temperature 98.0 EKG: EKG reviewed. HOSPITAL PROBLEMS: Principal Problem: Acute on chronic respiratory failure with hypoxia and hypercapnia ([facility]) Active Problems: Essential hypertension Alcohol use disorder Anxiety and depression Chronic obstructive pulmonary disease, unspecified ([facility]) ESRD (end stage renal disease) on dialysis ([facility]) Gastro-esophageal reflux disease without esophagitis Hyperlipidemia, unspecified Hyperkalemia Sepsis ([facility]) Somnolence HOSPITAL ASSESSMENT AND PLAN: Acute conditions Sepsis Acute hypoxic and hypercapnic respiratory failure Leading source of concern hospital-acquired pneumonia. Also considering aspiration pneumonia. Evaluate for other etiologies as noted below as well Pro calcitonin on admission 1.4 -continuous telemetry, pulse ox, oxygen as needed -keep head of bed elevated -monitor intake, output -blood cultures ordered -continue antibiotics zosyn and vancomycin, first dose 01/31/25, day 1 -midodrine 2.5 mg needed for systolic less than 100 or MAP less than 65, notify physician if given -CBC, BMP, LFTs, magnesium, phosphorous -COVID/flu/RSV -legionella and strep urinary antigens -mrsa swab -respiratory culture -UA with reflex -lactic acid -consider repeat VBG for worsening somnolence or hypoxia -consider repeat chest xray or CT chest without contrast for further evaluation pending clinical course for concern developing pneumonia Somnolence Leading etiologies in include toxic encephalopathy vs metabolic encephalopathy vs multifactorial insetting of condition above vs in setting alcohol use vs COPD exacerbation vs in setting missed HD vs multifactorial. Evaluating further for other etiologies as noted below. CT head negative on admission -management as above -every 4 hour neuro checks Copd Concern for exacerbation at this time -management as above -brovana and pulmicort scheduled, duo nebs every 4 hours as needed -continue steroid solumedrol 60 mg daily, titrate as indicated -consider pulmonology consult as indicated Esrd on HD sun, , sat Hyperkalemia S/p calcium gluconate, insulin, glucose, lokelma in the ER In ER, case discussed with specialist with nephrology, Dr. Scherer, will plan for dialysis 02/01/25 -continue home ferrous sulfate, sevelamer, midodrine as needed -holding home lokelma daily for now, restart when indicated -nephrology consult Alcohol abuse, h/o alcohol withdrawal syndrome Encouraged plan for alcohol cessation and informed will work to help him with this while he is hospitalized -CIWA protocol -continue home thiamine, folic acid -social work consult Chronic conditions Depression -continue home sertraline, lamictal, olanzapine, rexulti, melatonin, hydroxyzine as needed pending improvement in somnolence, restart when indicated Hypertension Hyperlipidemia History of NSTEMI, CVA -continue home plavix, statin -holding home aspirin for now, unclear if patient is supposed to be taking in addition to plavix since CVA 03/2024 -holding home metoprolol in setting soft blood pressures, restart when indicated GERD -continue home PPI GLOBAL PLAN OF CARE: Code status discussed and full code DVT Prophylaxis: heparin subcutaneous Diet: npo pending further monitoring D/w patient, who were determined to have the capacity to make medical decisions utilizing accepted standards of medical judgment. Med Reconciliation Status: completed. Patient reports no changes in home medication list since hospital discharge January 2025, reviewed Level of Care/Acuity: The above assessment and plan demonstrates disease processes, comorbidities and complexity of management that require expected inpatient hospital services for at least 2 midnights of care or the patient is receiving a procedure that is on the ???Inpatient Only??? procedure list. Coding Signed By: Joselito Soni DO [facility] Medicine 02/01/2025 2:40 AM [1] Social History Tobacco Use Smoking status: Every Day Current packs/day: 1.00 Types: Cigarettes Substance Use Topics Alcohol use: Yes Alcohol/week: 28.0 - 63.0 standard drinks of alcohol Types: 28 - 63 Standard drinks or equivalent per week Comment: 1 1/2 pints daily Drug use: Yes Types: Cocaine, Crack cocaine Comment: occasional documented in this encounter Procedure Notes * Geoffrey Ayala RN - 02/01/2025 4:42 PM ESTAssociated Order(s): HEMODIALYSIS INPATIENT Hemodialysis Nursing Procedure Note Patient: Sushant Christianson : 1960 CSN: [id number] Treatment Summary: Patient received 3 hrs of urgent iHD for volume overload and electrolyte derangement. Treatment initiated via RCW CVC, dressing CDI dated 01/27, Qb 350 Qd 600 goal initially set at 3L. During treatment BP drop and goal reduced with good effect. Post treatment patient reinfused w/oincident, however noted that patient appeared to be more confused and had mild tremors and elevatedHR. ED RN notified, patient did try and get out of bed while still attached to lines and was redirected to stay in bed with compliance. Events or Complications during HD (if any): See above Net Ultrafiltration: 2.5 L Outpatient Estimated Dry Weight (EDW): n/A kg Brief physical exam: Lungs: Decreased breath sounds Heart: Irregular Peripheral edema: 1+ pitting edema Dialysis access type: Right neck tunneled catheter Dialysis Prescription: Bath Settings: Potassium: 2 mEq Calcium: 2.5 mg Sodium: 140 mEq Bicarb: 35 mEq Time on Dialysis: 3 hours Blood Flow Rate: 350 Dialysate Flow Rate: 600 mL/min Medications: Heparin Dose: Heparin-free IRAIS Dose: Retacrit, 10,000 units Vitamin D Analogs: None Venofer Dose: None Antibiotics: None Catheter lumen dwell: 0.9% saline Schedule: Dialysis schedule: of next hemodialysis: Sunday Time of next hemodialysis: To be determined Geoffrey Ayala RN 02/01/2025 documented in this encounter Consult Notes * Iris Scherer MD - 02/01/2025 10:05 AM ESTAssociated Order(s): IP CONSULT TO NEPHROLOGY Nephrology Hospital Consult Note Date of Service: 02/01/2025 Patient: Sushant Christianson : 1960 CSN: [id number] Location: [facility] emergency Room/Bed: History of Present Illness: I have been asked to see this 65 y.o. male at the request of the Hospitalist service for ESRD and dialysis management, I will briefly review his history for my records. Heis seen and examined in the emergency room. He is laying in bed breathing comfortably on high flow oxygen. He was sleeping but able to wake up. No complaints but confused. Missed dialysis yesterday. Explained that he will be getting dialysis today. Disheveled. Sushant Christianson is a 65 y.o. male with past medical history significant for ESRD on hemodialysis , Sun, polysubstance abuse including cocaine and alcohol, COPD, history of alcohol withdrawalsyndrome and DTs. He was recently hospitalized at [place] 01/27-01/30 with fall, weakness and missed 2 dialysis sessions. He last underwent HD here at [facility] on 01/29. He did not go to his outpatient dialysis yesterday 01/31. Patient presents after being found down in his hotel room by EMS. He was found in a pile of trash. States that he was drinking alcohol however unable to quantify the amount he has consumed over the past 24 hours since he was discharged. He denies any suicidal or homicidal ideation. He denies chest pain, shortness of breath, fever, chills, nausea, vomiting, diarrhea, or abdominal pain. Labs on admission showed potassium 5.7, bicarb 22, BUN 59 and creatinine 9.30. Nephrology History: ESRD, documentation unavailable, but presumed hypertension/microvascular disease Started on in center hemodialysis 02/14, , Sunday schedule at [place] dialysis Followed by Dr. Genevieve Grimaldo as an outpatient Uses a tunneled catheter for dialysis access Still with fairly good urine output and missed several dialysis treatments. Problem List: Problem List[1] History: Past Medical History[2] Past Surgical History[3] Family History[4] Social History[5] Review of Systems: See History of Present Illness - all other systems reviewed and are negative Current Medications: Prescriptions Prior to Admission[6] Current Facility-Administered Medications[7] Allergies: Patient has no known allergies. Physical Exam: Min/Max vitals over last 24 hours: BP Min: 90/49 Max: 157/97 Temp Min: 98.1 ??F (36.7 ??C) Max: 98.3 ??F (36.8 ??C) Pulse Min: 76 Max: 113 Resp Min: 12 Max: 20 SpO2 Min: 88 % Max: 100 % Vitals: 02/01/25 0930 BP: (!) 147/94 Pulse: (!) 110 Resp: Temp: 98.3 ??F (36.8 ??C) SpO2: BP (!) 147/94 Pulse (!) 110 Temp 98.3 ??F (36.8 ??C) Resp 14 Ht 1.778 m (5' 10 ) Wt 79.4 kg (175 lb) SpO2 93% BMI 25.11 kg/m?? Intake/Output: Intake/Output Summary (Last 24 hours) at 02/01/2025 1006 Last data filed at 02/01/2025 0202 Gross per 24 hour Intake 600 ml Output -- Net 600 ml No intake/output data recorded. General: WD male; resting comfortably on high flow oxygen, disheveled HEENT: unremarkable Skin: Turgor normal Neck: no JVD, bruit, adenopathy Chest: Clear to auscultation Heart:: RRR; no murmur, rub, or gallop. Abdomen: Bowel sounds present; no bruits, masses, tenderness Extremities: Edema 0 Neurologic: non-focal, no asterixis. Labs, Imaging & Other Studies: Radiology: Recent imaging studies have been reviewed. Laboratory: All recent labs have been reviewed. Lab Results Component Value Date CREATININE 10.20 (H) 02/01/2025 CREATININE 9.30 (H) 01/31/2025 BUN 64 (H) 02/01/2025 GFRNONAA >60 05/03/2012 NA 139 02/01/2025 K 5.5 (H) 02/01/2025 CL 103 02/01/2025 CO2 23 (L) 02/01/2025 ANIONGAP 14 02/01/2025 CALCIUM 9.7 02/01/2025 PHOS 1.7 (L) 02/01/2025 PTH 1,372 (H) 02/20/2023 CAION 1.19 12/28/2022 ALBUMIN 4.3 02/14/2010 HGB 7.0 (L) 02/01/2025 WBC 10.33 02/01/2025 PLT 306 02/01/2025 PROTEINUR 100 mg/dL (A) 01/28/2025 CREATUR 64.0 01/28/2025 Results from last 7 days Lab Units 02/01/25 0525 11/08170501/30/2553301/29/2540601/28/25 0517 CREATININE mg/dL 10.20* 9.30* 7.10* 3.20* 8.40* BUN mg/dL 64* 59* 45* 13 40* SODIUM mmol/L 139 141 138 138 139 POTASSIUM mmol/L 5.5* 5.7* 4.9 3.5 4.6 CHLORIDE mmol/L 103 103 100 100 100 CO2 mmol/L 23* 22* 25 27 27 ANION GAP mmol/L 14 16* 12 11 12 CALCIUM mg/dL 9.7 9.3 9.1 9.5 9.3 PHOSPHORUS mg/dL 1.7* -- -- -- -- Results from last 7 days Lab Units 02/01/2552401/31/25170501/30/2553301/29/2540601/28/25516 HEMOGLOBIN g/dL 7.0* 8.4* 8.0* 8.3* 7.8* WBC K/uL 10.33 12.83* 8.96 6.28 6.65 PLATELETS K/uL 306 336 261 261 240 Other pertinent labs: none. Impression: 65 y.o. male ESRD on hemodialysis Sun, polysubstance abuse including cocaine and alcohol, COPD, history of alcohol withdrawal syndrome and DTs. Patient presents after being found down in his hotel room by EMS. He was found in a pile of trash. States that he was drinking alcohol. He has generalized weakness and missed hemodialysis yesterday and noted to have hyperkalemia and uremia. ESRD on hemodialysis Sunday, , Sunday Hyperkalemia Uremia Benign hypertensive kidney disease Anemia due to ESRD Recommendations: Will arrange hemodialysis today. Metabolic profile and CBC will be reviewed on a daily basis. Next HD after today will be on Sunday. HD: UF 2-3 liters as tolerated. Time 3.0 hours. Access right IJ tunneled dialysis catheter Dialysate 2 K, 2.5 Ca. Dialyzer F180 Blood flow (Qb) 400 ml/min, Dialysate flow (Qd) 800 ml/min Anticoagulation none ESRD related issues: 1. Anemia of chronic renal disease -Retacrit 61815 units IV on HD 2. Electrolytes / acid-base - adequately controlled on intermittent hemodialysis 3. Blood pressure / volume -blood pressure elevated. Please resume home blood pressure medications. 4. Renal osteodystrophy / calcium / phosphorus - follow phosphorus every 2-3 days 5. Medications - dose for ESRD/hemodialysis The Nephrology Service will follow the patient's course and manage renal replacement therapy. Iris Scherer MD Nephrology [1] Patient Active Problem List Diagnosis Alcohol withdrawal ([facility]) Essential hypertension Alcohol withdrawal syndrome without complication ([facility]) Alcohol use disorder Alcoholic intoxication without complication Pneumonia Alcoholic fatty liver Anxiety and depression B12 deficiency BPH with urinary obstruction Anemia of chronic disease Chronic hepatitis, unspecified ([facility]) Chronic obstructive pulmonary disease, unspecified ([facility]) Noncompliance with renal dialysis ([facility]) ESRD (end stage renal disease) on dialysis ([facility]) Gastro-esophageal reflux disease without esophagitis Hyperlipidemia, unspecified Kidney lesion, [place], left MSSA bacteremia Personal history of nicotine dependence Polysubstance abuse ([facility]) Secondary hyperparathyroidism of renal origin Kruse's esophagus without dysplasia ESRD (end stage renal disease) ([facility]) Chest pain Hypotension Acute hyperkalemia Vomiting and diarrhea Cocaine use disorder ([facility]) Elevated alkaline phosphatase level Lactic acid acidosis Altered mental status, unspecified Generalized muscle weakness Homeless Metabolic encephalopathy Other abnormalities of gait and mobility Other staphylococcus as the cause of diseases classified elsewhere Alcohol dependence with withdrawal, unspecified ([facility]) Alcohol use disorder, severe, in early remission ([facility]) Other psychoactive substance abuse, uncomplicated ([facility]) Bacteremia Dependence on renal dialysis Patient's noncompliance with renal dialysis for other reason Suicidal ideation Depression Major depressive disorder, recurrent severe without psychotic features ([facility]) Alcohol use disorder GI bleed Acute blood loss anemia Chronic anemia Acute on chronic anemia Chest pain in adult Moderate episode of recurrent major depressive disorder ([facility]) ESRD (end stage renal disease) ([facility]) Pneumonia due to infectious agent End stage renal disease ([facility]) Dyspnea Dyspnea on exertion Weakness Gastroenteritis ESRD needing dialysis ([facility]) Unwitnessed fall SIRS (systemic inflammatory response syndrome) ([facility]) Hyperkalemia Obstructive sleep apnea Sepsis ([facility]) Somnolence Acute on chronic respiratory failure with hypoxia and hypercapnia ([facility]) [2] Past Medical History: Diagnosis Date Alcohol dependence ([facility]) Alcoholic fatty liver 11/22/2020 Anemia of chronic disease 02/22/2022 Anxiety and depression 11/22/2020 Bacteremia 10/17/2022 Kruse's esophagus without dysplasia 12/24/2019 BPH with urinary obstruction 10/10/2018 Chronic obstructive pulmonary disease, unspecified ([facility]) 11/22/2020 CKD (chronic kidney disease) ESRD (end stage renal disease) ([facility]) 11/02/2022 Gastro-esophageal reflux disease without esophagitis 11/22/2020 HCAP (healthcare-associated pneumonia) 06/18/2022 Hyperlipidemia Hypertension 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 Polysubstance abuse ([facility]) 01/28/2021 Suicidal ideation 02/08/2023 Syncope 12/20/2022 [3] Past Surgical History: Procedure Laterality Date INTERVENTIONAL RADIOLOGY PROCEDURE N/A 08/06/2023 Surgeon: PRESTON Boateng; Location: [facility]; Service: Vascular and Interventional Radiology; Laterality: N/A; arm surgery Left [4] Family History Problem Relation Name Age of Onset Diabetes Mother d. 88 Thyroid disease Mother Depression Father [5] Social History Tobacco Use Smoking status: Every Day Current packs/day: 1.00 Types: Cigarettes Substance Use Topics Alcohol use: Yes Alcohol/week: 28.0 - 63.0 standard drinks of alcohol Types: 28 - 63 Standard drinks or equivalent per week Comment: 1 1/2 pints daily Drug use: Yes Types: Cocaine, Crack cocaine Comment: occasional [6] (Not in a hospital admission) [7] Current Facility-Administered Medications Medication arformoteroL (BROVANA) nebulizer solution 15 mcg [Held by provider] aspirin EC tablet 81 mg atorvaSTATin (LIPITOR) tablet 80 mg brexpiprazole (REXULTI) tablet 3 mg budesonide (PULMICORT) nebulizer solution 0.5 mg clopidogreL (PLAVIX) tablet 75 mg ferrous sulfate tablet 325 mg folic acid (FOLVITE) tablet 1 mg gabapentin (NEURONTIN) capsule 100 mg heparin (porcine) injection 5,000 Units lamoTRIgine (LaMICtal) tablet 25 mg melatonin tablet 6 mg methylPREDNISolone sodium succinate (PF) (SOLU-Medrol) injection 60 mg [Held by provider] metoprolol tartrate (LOPRESSOR) tablet 12.5 mg OLANZapine (ZyPREXA) tablet 10 mg pantoprazole (PROTONIX) DR tablet 40 mg peripheral line: sodium chloride (NS) 0.9% flush piperacillin-tazobactam (ZOSYN) 2.25 g in sodium chloride 0.9% (NS) MBP sertraline (ZOLOFT) tablet 100 mg sevelamer carbonate (RENVELA) tablet 800 mg thiamine tablet 100 mg [START ON 02/02/2025] vancomycin (VANCOCIN) 1.25 gram/250 mL in 0.9 % sodium chloride (NS) IVPB premix 15 mg/kg = 1,250 mg 250 mL documented in this encounter ED Notes * Mahesh Thomson RN - 02/02/2025 3:46 AM EST Pt hgb 6.9 from 2151 lab. Pt trending down the past few days. Nurse reached to cross coverage and informed her to trend and current lab. She said to repeat hgb stat to assess for need for transfusion. Lab sent. Awaiting result. * Linda Oviedo RN - 02/01/2025 10:49 PM EST Irma is alert and oriented ??3 but demonstrates intermittent confusion and forgetfulness. He deniesany pain or discomfort at this time. Vital signs are stable and within normal limits, and he also shows no signs of respiratory, cardiovascular, or neurological distress. He is calm, cooperative, andable to participate in care, though occasional reminders and reorientation are required. Skin is intact, and he is able to perform basic activities of daily living with minimal assistance. Overall, Sushant remains stable and in good spirits. Plan includes continued routine monitoring of vital signs, providing support and reorientation as needed, and ensuring safety measures are in place to prevent fa lls or injury. * Miriam Peña RN - 01/31/2025 4:53 PM EST Pt smells of alcohol, states I am a full blown alcoholic I drink vodka . States last drink was 10 am today. * Kt Samano RN - 01/31/2025 4:43 PM EST Ems from hotel room Found in bed in pile of [place] Missed dialysis and today Pt w/o complaints 2 person assist to get up, weak and lethargic 240/140 Fsbs 140 * PRESTON Velasquez - 01/31/2025 4:34 PM EST Date of service: 01/31/2025 EMERGENCY DEPARTMENT ENCOUNTER CHIEF COMPLAINT Chief Complaint Patient presents with Fatigue Medical History Past Medical History[1] Current Medications Current Medications[2] Surgical History Past Surgical History[3] Physical Exam VITAL SIGNS: BP 129/72 Pulse 90 Temp 98.1 ??F (36.7 ??C) (Oral) Resp 14 Ht 1.778 m (5' 10 ) Wt 79.4 kg (175 lb) SpO2 98% BMI 25.11 kg/m?? Constitutional: Somnolent, lethargic, chronically ill-appearing, no acute distress, arousable and responsive to painful stimuli HENT: Normocephalic, atraumatic, bilateral external ears normal, oropharynx moist, no oral exudates, Nose normal. Neck- normal range of motion, no tenderness, supple, no stridor. Eyes: PERRL, EOMI, conjunctiva normal, no discharge. Lymphatic: No lymphadenopathy noted. Cardiovascular: Normal heart rate, normal rhythm, no murmurs, no rubs, no gallops. Respiratory: Rhonchorous lung sounds bilaterally, speaking full sentences, no respiratory distress such as dyspnea or tachypnea GI: Bowel sounds normal, Soft, no tenderness, no masses, no pulsatile masses. Integument: Warm, dry, no erythema, no rash. Back: No midline spinal tenderness, no CVA tenderness. Musculoskeletal: No major extremity deformities. Neurologic: Somnolent, arousable to painful stimuli, alert & oriented to person and place, however able to state the day of the week, normal motor function, normal sensory function, no focal deficits noted. Psychiatric: Affect normal, judgment normal, mood normal. EKG RADIOLOGY XR Chest 1 Vw Portable Result Date: 01/31/2025 EXAM DESCRIPTION: XR CHEST 1 VW PORTABLE 01/31/2025 6:54 pm CLINICAL HISTORY: Found down. ETOH intoxication COMPARISON: 12/26/2024. TECHNIQUE: Single AP portable view of the chest. FINDINGS: No lines and tubes are identified. There is a dialysis catheter entering from the right IJ terminating in theright atrium. Line appears well-positioned. No pneumothorax. The costophrenic angles are clear. No pleural effusions. No pneumothorax is identified. Low lung volumes with probable small bilateral pleural effusions. No focal infiltrate. The bones and soft tissues appear normal for age. Low lung volumes. No lobar infiltrate. Probable small bilateral pleural effusions. CT Head WO Contrast Result Date: 01/31/2025 EXAM DESCRIPTION: CT HEAD WO CONTRAST CLINICAL HISTORY: Found down. Dialysis patient. ETOH intoxication. COMPARISON: 01/27/2025. TECHNIQUE: Thin section axial images through the head were performed. Coronal reconstructions were also obtained. To my knowledge the head CT was performed within 24 hours of the patient's arrival. FINDINGS: Ventricles and sulci: The ventricles, cisterns, and sulci are moderately enlarged compatible with age-related tissue loss. Cerebral/cerebellar hemispheres: There is no evidence of acute large vessel territorial infarction. There is no intracranial hemorrhage No significant white matter disease is present. There is no mass effect or midline shift. Extra- axial spaces: There is no abnormal extra-axial fluid. Vascular: No significant calcification in intracranial arteries Globes/paranasal sinuses: The globes are intact The visualized paranasal sinuses and mastoid air cells are aerated Bones/soft tissues: There is no displaced calvarial fracture There is no si gnificant soft tissue swelling. No acute intracranial abnormalities are detected. No evidence of acute intracranial hemorrhage or large vessel territorial infarct. ECG 12 lead Result Date: 01/31/2025 Normal sinus rhythm Left axis deviation Right bundle branch block Abnormal ECG LABS Results for orders placed or performed during the hospital encounter of 01/31/25 Comprehensive Metabolic Panel Collection Time: 01/31/25 5:06 PM Result Value Ref Range Sodium 141 135 - 146 mmol/L Potassium 5.7 (H) 3.4 - 5.2 mmol/L Chloride 103 98 - 110 mmol/L Total CO2/Bicarbonate 22 (L) 24 - 32 mmol/L Anion Gap 16 (H) 2 - 15 mmol/L BUN 59 (H) 7 - 24 mg/dL Creatinine, Blood 9.30 (H) 0.60 - 1.30 mg/dL Glucose, Blood 102 (H) 50 - 100 mg/dL Calcium 9.3 8.5 - 10.5 mg/dL Total Protein 7.4 6.2 - 8.2 g/dL Albumin, Blood 4.0 3.4 - 5.2 g/dL Globulin Result 3.4 2.0 - 4.0 g/dL AST (SGOT) 19 11 - 40 U/L ALT (SGPT) 16 7 - 40 U/L Alkaline Phosphatase 267 (H) 30 - 115 U/L Total Bilirubin 0.3 0.2 - 1.2 mg/dL Estimated GFR (MDRD) 6 (L) >=60 mL/min/BSA CBC and Differential Collection Time: 01/31/25 5:06 PM Result Value Ref Range WBC 12.83 (H) 4.00 - 11.00 K/uL RBC 2.90 (L) 4.10 - 5.60 M/uL Hemoglobin 8.4 (L) 12.7 - 16.7 g/dL Hematocrit 27.4 (L) 38.1 - 50.1 % MCH 29.0 23.0 - 37.0 pg MCHC 30.7 29.0 - 38.0 g/dL MCV 95 82 - 98 fL RDW 16.0 (H) 11.5 - 14.5 % Platelet Count 336 150 - 450 K/uL MPV 10.2 6.0 - 14.0 fL Neutrophil 74.0 % Lymphocyte 13.2 % Monocyte 7.2 % Eosinophil 2.7 % Basophil 0.7 % Immature Granulocyte ([place], Myelo, Promyelocyte) 2.2 % Absolute Neutrophil Count 9.51 (H) 1.50 - 7.70 K/uL Absolute Immature Granulocyte ([place], Myelo, Promyelocyte) 0.28 (H) 0.00 - 0.09 K/uL Absolute Lymphocyte Count 1.69 1.50 - 4.00 K/uL Absolute Monocyte Count 0.92 0.16 - 1.26 K/uL Absolute Eosinophil Count 0.34 (H) 0.15 - 0.30 K/uL Absolute Basophil Count 0.09 0.00 - 0.21 K/uL Alcohol Collection Time: 01/31/25 5:06 PM Result Value Ref Range Alcohol <10 <10 mg/dL CK (Creatine Kinase) Collection Time: 01/31/25 5:06 PM Result Value Ref Range Creatine Kinase Total (CK) 44 30 - 194 U/L Procalcitonin Collection Time: 01/31/25 5:06 PM Result Value Ref Range Procalcitonin 1.40 (H) <0.15 ng/mL POCT Glucose Collection Time: 01/31/25 5:12 PM Result Value Ref Range Glucose, POC 101 70 - 118 mg/dL ECG 12 lead Collection Time: 01/31/25 5:14 PM Result Value Ref Range Ventricular Heart Rate 83 BPM Atrial Heart Rate 83 BPM NC Interval 206 ms QRSD Interval 142 ms QT Interval 396 ms QTC Interval 465 ms P [place] 52 degrees R [place] -60 degrees T Wave [place] 33 degrees Venous Blood Gas Collection Time: 01/31/25 8:26 PM Result Value Ref Range FLOW RATE 3.0 Method,O2 Admin OXY-Mask pH, Venous 7.24 (L) 7.32 - 7.42 pCO2, Venous 60 (H) 38 - 49 mmHg pO2, Venous 44 No Reference Range mmHg HCO3, Venous 26 18 - 32 mmol/L % O2Hb, Venous 72 No Established Reference Range % Base Excess, Venous -1.9 (L) 0.0 - 3.0 mmol/L Carboxyhemoglobin, VBG 1.8 (H) 0.5 - 1.5 % Methemoglobin, VBG 1.4 (H) <1.0 % Patient Temperature 98.0 Venous Blood Gas Collection Time: 01/31/25 10:32 PM Result Value Ref Range FLOW RATE 45.0 FIO2 21 % Method,O2 Admin Hi-Flow pH, Venous 7.26 (L) 7.32 - 7.42 pCO2, Venous 54 (H) 38 - 49 mmHg pO2, Venous 38 No Reference Range mmHg HCO3, Venous 25 18 - 32 mmol/L % O2Hb, Venous 65 No Established Reference Range % Base Excess, Venous -2.5 (L) 0.0 - 3.0 mmol/L Carboxyhemoglobin, VBG 1.9 (H) 0.5 - 1.5 % Methemoglobin, VBG 1.3 (H) <1.0 % Patient Temperature 98.0 Pertinent Labs & Imaging studies reviewed. (See chart for details) Clinical Impression 1. HAP (hospital-acquired pneumonia) 2. Acute hypercapnic respiratory failure (CMS-HCC) HPI Patient presents after being found down in his hotel room by EMS. He was found in a pile of trash. He is a 65-year-old male with a history of end-stage renal disease on dialysis (Sunday, , Sunday) and substance abuse including alcohol abuse. He states he missed his dialysis appointments on and today (01/31/2025). He has no specific complaints but believes he had a diabetic seizure, though is unable to elaborate. He is somnolent and tired, with a limited history provided. He does not believe he hit his head. States that he was drinking alcohol today however unable to quantify the amount he has consumed over the past 24 hours since he was discharged. He denies any suicidalor homicidal ideation. Of note, he was discharged from this hospital yesterday after a similar presentation. He denies chest pain, shortness of breath, fever, chills, nausea, vomiting, diarrhea, or abdominal pain. No reported surgical history. No recent travel history mentioned. MEDICAL DECISION MAKING Pertinent Labs & Imaging studies reviewed. See chart for details. Differential diagnosis includes alcohol abuse, withdrawal seizures, alcohol withdrawal, seizure, syncope, electrolyte abnormality, uremia, dehydration, and underlying illness. The patient is a 65-year-old male with ESRD and alcohol abuse found down after reportedly missing dialysis. He is somnolent but arousable to painful stimuli, appearing malnourished and chronically ill. He isafebrile. On exam, he is somnolent, smells malodorous without a strong scent of alcohol, and all heart soundsare within normal limits. Benign abdomen. EKG was obtained, showing normal sinus rhythm at 83 bpm, normal intervals, and left axis deviation consistent with prior EKGs. There are no hyperacute T waves or ischemic changes. Basic labs are pending. The patient's presentation with altered mental status is concerning for multiple etiologies given his complex past medical history. It was initially reported he missed two dialysis sessions, but it appears he may have received dialysis two days prior on 01/29/2025. The differential diagnosis remains broad, including metabolic derangements such as uremia and electrolyte abnormalities, toxicologic causes like alcohol intoxication or withdrawal, and other underlying illnesses. PLAN - Await results of basic labs to evaluate for metabolic or electrolyte abnormalities. - Continue to monitor vital signs and mental status. - Obtain CT head and chest Xray - Consult nephrology for likely dialysis tomorrow ED Course as of 01/31/25 2315 Sat Jan 31, 2025 182 Discussed case with nephrology, Dr. Scherer, they agree with Lokelma, insulin, dextrose and request calcium. They will plan for dialysis tomorrow as he missed his appointment today. [YENNIFER] 1825 CBC and Differential(!) Leukocytosis, stable h/h [YENNIFER] 1825 Comprehensive Metabolic Panel(!) Mildly elevated K. Mild elevation in AG, likely secondary to uremia, however potential for seizure given low bicarb. Elevation in serum Cr. [YENNIFER] 1826 Alcohol Less than 10, will place on CIWA [YENNIFER] 1950 CT Head WO Contrast IMPRESSION: No acute intracranial abnormalities are detected. No evidence of acute intracranial hemorrhage or large vessel territorial infarct. [YENNIFER] 1953 XR Chest 1 Vw Portable Based on my preliminary read, concern for left lower lobe infiltrate vs effusion, adding on pro calcitonin, will treat with broad spectrum antibiotics and cover for MRSA and pseudomonas along with anaerobes. [YENNIFER] 2006 Patient continues to resting comfortably, however RN placed patient on 3 lpm via oxy-mask, patients SpO4 96-98, he is in no distress. Will obtain VBG for potential hypercapnia encephalopathy. [YENNIFER] 2114 Venous Blood Gas(!) Hypercapnia/respiratory acidosis, will initiate high flow nasal cannula and order IV solumedrol [YENNIFER] 2144 Reassessed patient, continues to rest comfortably and is arousable to painful stimuli. High flow nasal cannula has been applied, will repeat VBG at 1030 [YENNIFER] 2217 Patient removed NC. However, he is much more alert, now oriented, speaking full sentences. States he feels substantial improvement. [YENNIFER] 2238 Venous Blood Gas(!) Moderate improvement, however patient removed the NC for a prolonged period of time. Clinically his mental status has improved, now alert and oriented, responding to verbal stimuli. Will upgrade to BiPAP and recheck VBG within an hour. [YENNIFER] 230 Patient care will be transferred to Dr. Taveras with repeat VBG following BiPAP. [YENNIFER] ED Course User Index [YENNIFER] PRESTON Velasquez Portions of this record may have been created using voice recognition software. Occasional wrong-word or [id number] substitutions may have occurred due to the inherent limitations of voice recognition software. Please read the chart carefully and recognize, using context, where substitutions may have occurred. [1] Past Medical History: Diagnosis Date Alcohol dependence ([facility]) Alcoholic fatty liver 11/22/2020 Anemia of chronic disease 02/22/2022 Anxiety and depression 11/22/2020 Bacteremia 10/17/2022 Kruse's esophagus without dysplasia 12/24/2019 BPH with urinary obstruction 10/10/2018 Chronic obstructive pulmonary disease, unspecified ([facility]) 11/22/2020 CKD (chronic kidney disease) ESRD (end stage renal disease) ([facility]) 11/02/2022 Gastro-esophageal reflux disease without esophagitis 11/22/2020 HCAP (healthcare-associated pneumonia) 06/18/2022 Hyperlipidemia Hypertension 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 Polysubstance abuse ([facility]) 01/28/2021 Suicidal ideation 02/08/2023 Syncope 12/20/2022 [2] No current facility-administered medications for this encounter. Current Outpatient Medications Medication Sig Dispense Refill acetaminophen (TYLENOL) 500 MG tablet Take 1 [...] total) by mouth daily. 14 tablet 0 gabapentin (NEURONTIN) 100 MG capsule Take 1 capsule (100 mg total) by mouth at bedtime. 30 capsule0 hydrOXYzine HCL (ATARAX) 10 MG tablet Take [...] by mouth every evening.) 30 tablet 0 metoprolol tartrate (LOPRESSOR) 25 MG tablet Take 0.5 tablets (12.5 mg total) by mouth in the morning and 0.5 tablets (12.5 mg total) before bedtime. 30 tablet 0 midodrine (PROAMATINE) 2.5 MG [...] mg total) by mouth in the morning. [3] Past Surgical History: Procedure Laterality Date INTERVENTIONAL RADIOLOGY PROCEDURE N/A 08/06/2023 Surgeon: PRESTON Boateng; Location: [facility]; Service: Vascular and Interventional Radiology; Laterality: N/A; arm surgery Left PRESTON Velsaquez 01/31/25 2643 * Wilfredo Taveras DO - 01/31/2025 4:34 PM EST Addendum: I reexamined Mr. Christianson after his trial of high flow nasal cannula that was admittedlyonly positioned properly intermittently as he would push it down below his chin. He is much more alert on the reevaluation examination. There were 2 VBG's documented that showed an interval improvement with reduction of the pCO2 and with the improvement of his pH. I am encouraged by his overall level of alertness and think that he can continue with the high flow nasal cannula and if necessary repeat a VBG if he seems to be less alert or responsive. Wilfredo Taveras DO 01/31/252021 Wilfredo Taveras DO 02/01/25 0108 documented in this encounter Miscellaneous Notes * Plan of Care - Wilfredo Crespo RN - 02/02/2025 9:36 AM EST Problem: Pain - Adult Goal: Verbalizes/displays adequate comfort level or baseline comfort level Outcome: Completed Problem: Safety-Adult Goal: Free from fall injury Outcome: Completed Problem: Discharge Planning Goal: Discharge to home or other facility with appropriate resources Outcome: Completed Problem: Chronic Conditions and Co-morbidities Goal: Patient's chronic conditions and co-morbidity symptoms are monitored and maintained or improved Outcome: Completed Problem: Mobility Goal: Improve mobility to highest level of function Outcome: Completed Problem: Knowledge Deficit Goal: Patient/family/caregiver demonstrates understanding of disease process, treatment plan, medications, and discharge instructions Outcome: Completed * IV Therapy Notes - Yennifer Zamudio RN - 01/31/2025 6:43 PM EST IVT paged to place PIV. #20, and #22 placed in left AC, but vein collapsed when attempting to flush. #24 placed left thumb, but again, vein collapsed. Primary RN Miriam advised. * Attestation Note - Wilfredo Taveras DO - 01/31/2025 4:34 PM EST [facility] ED Attestation Note I personally made/approved the management plan and take responsibility for the patient management. DO Wilfredo Brooks DO 01/31/252021 * Attestation Note - Wilfredo Taveras DO - 01/31/2025 4:34 PM EST [facility] ED Attestation Note I personally made/approved the management plan and take responsibility for the patient management. DO Wilfredo Brooks DO 02/01/25 0108 documented in this encounter Plan of Treatment Pending Results Name Type Priority Associated Diagnoses Date /Time Culture, Blood Microbiology Routine 02/02/20 2:47 AM EST Culture, Blood Microbiology Routine 02/02/20 2:47 AM EST documented as of this encounter Procedures Procedure Name Priority Date/Time Associated Diagnosis Comments BASIC METABOLIC PANEL Timed 02/02/2025 5:07 AM EST CBC Timed 02/02/2025 3:43 AM EST TYPE AND SCREEN Routine 02/02/2025 3:43 AM EST CBC Timed 02/01/2025 9:38 PM EST HEMODIALYSIS INPATIENT Routine 4:42 PM EST CULTURE, AEROBIC, URINE Routine 02/01/2025 12:03 PM EST LEGIONELLA URINARY ANTIGEN Routine 02/01/2025 12:03 PM EST STREP PNEUMONIAE URINE ANTIGEN Routine 02/01/2025 12:03 PM EST URINALYSIS WITH URINE CULTURE REFLEX Routine 02/01/2025 12:03 PM EST LACTIC ACID STAT 02/01/2025 5:25 AM EST CBC AND DIFFERENTIAL Routine 02/01/2025 5:25 AM EST CBC AND DIFFERENTIAL Routine 02/01/2025 5:25 AM EST PHOSPHORUS Routine 02/01/2025 5:25 AM EST MAGNESIUM Routine 02/01/2025 5:25 AM EST HEPATIC FUNCTION PANEL Routine 5:25 AM EST BASIC METABOLIC PANEL Routine 02/01/2025 5:25 AM EST CORONAVIRUS SARS-COV-2 AND INFLUENZA A/B Routine 02/01/2025 2:47 AM EST MRSA/SA BY PCR Routine 02/01/2025 2:47 AM EST CULTURE, BLOOD Routine 02/01/2025 2:47 AM EST CULTURE, BLOOD Routine 02/01/2025 2:47 AM EST BLOOD GAS, VENOUS STAT 02/01/2025 12: 25 AM EST BLOOD GAS, VENOUS STAT 01/31/2025 10: 32 PM EST BLOOD GAS, VENOUS STAT 01/31/2025 8:2 6 PM EST XR PORTABLE CHEST 1 VW STAT 7:[address] HEAD WO CONTRAST STAT 01/31/2025 6 :55 PM EST ECG 12-LEAD STAT 01/31/2025 5:14 PM EST POCI GLUCOSE Routine 01/31/2025 5:12 PM EST PROCALCITONIN STAT 01/31/2025 5:06 PM EST CBC AND DIFFERENTIAL STAT 01/31/2025 5:06 PM EST CBC AND DIFFERENTIAL STAT 01/31/2025 5:06 PM EST CK (CREATINE KINASE) STAT 01/31/2025 5:06 PM EST ETHANOL, BLOOD STAT 01/31/2025 5:06 PM EST COMPREHENSIVE METABOLIC PANEL STAT 01/31/2025 5:06 PM EST documented in this encounter Results * (ABNORMAL) Basic Metabolic Panel (02/02/2025 5:07 AM EST) Pathologist [facility] [place] Sodium 138 135 - 146 mmol/L 02/02/2025 5:43 AM EST [facility] Potassium 4.6 3.4 - 5.2 mmol/L 02/02/2025 5:43 AM EST [facility] Chloride 99 98 - 110 mmol/L 02/02/2025 5:43 AM EST [facility] Total CO2/Bicarbonat e 28 24 - 32 mmol/L 02/02/2025 5:43 AM EST [facility] Anion Gap 11 2 - 15 mmol/L 02/02/2025 5:43 AM [facility] BUN 39(H) 7 - 24 mg/dL 02/02/2025 5:43 AM [facility] Creatinine, Blood 7.00(H) 0.60 - 1.30 mg/dL 02/02/2025 5:43 AM [facility] Glucose, Blood 169(H) 50 - 100 mg/dL 02/02/2025 5:43 AM [facility] Calcium 9.4 8.5 - 10.5 mg/dL 02/02/2025 5:43 AM EST [facility] Estimated GFR (MDRD) 8(L) >=60 mL/min/BSA 02/02/2025 5:43 AM EST [facility] Blood PERIPHERAL BLOOD SPECIMEN / Unknown Venipuncture / Unknown 02/02/2025 5:07 AM EST 02/02/2025 5:10 AM EST Gelacio Garcia MD LAB BLOOD ORDERABLES Ann arroyo Result [facility] [address] [place] [address] * Type and Screen (02/02/2025 3:43 AM EST) Pathologist [facility] [place] ABO and Rh A POS 02/02/2025 4:52 AM EST [facility] Antibody Screen NEG 4:52 AM EST [facility] TS Expiration Date 02/05/2025 23:59 02/02/2025 4:52 AM [facility] Blood Venipuncture / Unknown 02/02/2025 3:43 AM EST 02/02/2025 3:46 AM EST Sirisha JOHNSTON B[facility] B[facility] TEST ORDERABLES Final Result Performing Organization Address [facility] de Phone Number [facility] [address] [place] [address] * (ABNORMAL) CBC (02/02/2025 3:43 AM EST) [facility] WBC 10.77 4.00 - 11.00 K/uL 02/02/2025 3:50 AM [facility] RBC 2.56(L) 4.10 - 5.60 M/uL 02/02/2025 3:50 AM [facility] Hemoglobin 7.6(L) 12.7 - 16.7 g/dL 02/02/2025 3:50 AM [facility] Hematocrit 23.7(L) 38.1 - 50.1 % 02/02/2025 3:50 AM [facility] MCH 29.7 23.0 - 37.0 pg 02/02/2025 3:50 AM [facility] MCHC 32.1 29.0 - 38.0 g/dL 02/02/2025 3:50 AM [facility] MCV 93 82 - 98 fL 02/02/2025 3:50 AM [facility] RDW 17.1(H) 11.5 - 14.5 % 02/02/2025 3:50 AM [facility] Platelet Count 329 150 - 450 K/uL 02/02/2025 3:50 AM [facility] MPV 10.0 6.0 - 14.0 fL 02/02/2025 3:50 AM [facility] Blood PERIPHERAL BLOOD SPECIMEN / Unknown Venipuncture / Unknown 02/02/2025 3:43 AM EST 02/02/2025 3:46 AM EST Gelacio Garcia MD LAB BLOOD ORDERABLES Ann l Result Performing Organization Address City/State/[facility] Co de Phone Number [facility] [address], [place] [id number] * (ABNORMAL) CBC (02/01/2025 9:38 PM EST) Pathologist [facility] [place] WBC 11.78(H) 4.00 - 11.00 K/uL 02/01/2025 9:51 PM [facility] RBC 2.37(L) 4.10 - 5.60 M/uL 02/01/2025 9:51 PM [facility] Hemoglobin 6.9(LL) 12.7 - 16.7 g/dL 02/01/2025 9:51 PM [facility] Hematocrit 22.0(L) 38.1 - 50.1 % 02/01/2025 9:51 PM [facility] MCH 29.1 23.0 - 37.0 pg 02/01/2025 9:51 PM [facility] MCHC 31.4 29.0 - 38.0 g/dL 02/01/2025 9:51 PM [facility] MCV 93 82 - 98 fL 02/01/2025 9:51 PM [facility] RDW 16.8(H) 11.5 - 14.5 % 02/01/2025 9:51 PM [facility] Platelet Count 312 150 - 450 K/uL 02/01/2025 9:51 PM [facility] MPV 9.8 6.0 - 14.0 fL 02/01/2025 9:51 PM [facility] Blood PERIPHERAL BLOOD SPECIMEN / Unknown Venipuncture / Unknown 02/01/2025 9:38 PM EST 02/01/2025 9:41 PM EST Gelacio Garcia MD LAB BLOOD ORDERABLES Ann l Result [facility] [address] [place], [place] [id number] * Hemodialysis inpatient (02/01/2025 4:42 PM EST) Geoffrey Alvarado RN - 02/01/2025 4:42 PM EST Geoffrey Ayala RN 02/01/2025 4:48 PM Hemodialysis Nursing Procedure Note Patient: Sushant Christianson : 1960 CSN: [id number] Treatment Summary: Patient received 3 hrs of urgent iHD for volume overload and electrolyte derangement. Treatment initiated via RCW CVC, dressing CDI dated 01/27, Qb 350 Qd 600 goal initially set at 3L. During treatment BP drop and goal reduced with good effect. Post treatment patient reinfused w/o incident, however noted that patient appeared to be more confused and had mild tremors and elevated HR. ED RN notified, patient did try and get out of bed while still attached to lines and was redirected to stay in bed with compliance. Events or Complications during HD (if any): See above Net Ultrafiltration: 2.5 L Outpatient Estimated Dry Weight (EDW): n/A kg Brief physical exam: Lungs: Decreased breath sounds Heart: Irregular Peripheral edema: 1+ pitting edema Dialysis access type: Right neck tunneled catheter Dialysis Prescription: Bath Settings: Potassium: 2 mEq Calcium: 2.5 mg Sodium: 140 mEq Bicarb: 35 mEq Time on Dialysis: 3 hours Blood Flow Rate: 350 Dialysate Flow Rate: 600 mL/min Medications: Heparin Dose: Heparin-free IRAIS Dose: Retacrit, 10,000 units Vitamin D Analogs: None Venofer Dose: None Antibiotics: None Catheter lumen dwell: 0.9% saline Schedule: Dialysis schedule: Day of next hemodialysis: Sunday Time of next hemodialysis: To be determined Geoffrey Ayala RN 02/01/2025 us Iris Scherer MD DIALYSIS ORDERABLES Final Resu lt * Culture, Aerobic, Urine (02/01/2025 12:03 PM EST) Culture <10,000 CFU/ml mixed urogenital magen, probable contamination FELIPE 02/02/2025 10:02 AM [facility] Urine MID-STREAM URINE SPECIMEN / Unknown Collection / Unknown 02/01/2025 12:03 PM EST 02/01/2025 12:15 PM EST us Joselito Soni DO MICROBIOLOGY - GENERAL ORDERAB LES Final Result [facility] [address] [place] [address], * (ABNORMAL) Urinalysis with Reflex to Urine Culture (02/01/2025 12:03 PM EST) Color, Urine Yellow Colorless, Straw, Yellow 02/01/2025 12:15 PM [facility] Clarity, Urine Clear Clear 02/01/2025 12:15 PM [facility] pH, Urine 8.0 5.0 - 9.0 02/01/2025 12:15 PM [facility] Protein, Urine 100 mg/dL(A) Negative 02/01/2025 12:15 PM [facility] Glucose, Urine 50 mg/dL(A) Negative 02/01/2025 12:15 PM [facility] Ketone, Urine 5 mg/dL(A) Negative 02/01/2025 12:15 PM [facility] Bilirubin, Urine Negative Negative 02/01/2025 12:15 PM [facility] Urobilinogen, Urine Negative Negative 02/01/2025 12:15 PM [facility] Blood, Urine Negative Negative 02/01/2025 12:15 PM [facility] Leukocyte Esterase, Urine Small(A) Negative 02/01/2025 12:15 PM [facility] Nitrite, Urine Negative Negative 02/01/2025 12:15 PM [facility] Specific [place], Urine 1.010 1.001 - 1.030 02/01/2025 12:15 PM [facility] White Blood Cells, Urine 12(H) <=4 /hpf 02/01/2025 12:15 PM [facility] Red Blood Cells, Urine 4(H) <=2 /hpf 02/01/2025 12:15 PM [facility] Urine MID-STREAM URINE SPECIMEN / Unknown Collection / Unknown 02/01/2025 12:03 PM EST 02/01/2025 12:05 PM EST [employer] DO URINE ORDERABLES Final Result [facility] [address] [place] [address] * Strep Pneumoniae Urine Antigen (02/01/2025 12:03 PM EST) Strep pneumo Urine Antigen Negative Negative FELIPE 02/01/2025 10:29 PM EST [facility] Comment:Suggesting no curren t or recent pneumococcal infection. Infection due to S. Pneumoniae can not be ruled out since the antigen present in the sample maybe below the detection limit of the test. Urine MID-STREAM URINE SPECIMEN / Unknown Collection / Unknown 02/01/2025 12:03 PM EST 02/01/2025 12:05 PM EST [employer] MICROBIOLOGY - GENERAL ORDERAB LES Final Result Performing Organization Address [facility] de Phone Number [facility] [address] [place] [address], [place] [phone] * Legionella Urinary Antigen (02/01/2025 12:03 PM EST) Legionella pneumophila serogroup 1 antigen Negative Negative [facility] 02/01/2025 10:28 PM EST [facility] Comment:Suggesting no recent or current infection. Infection due to Legionella cannot be ruled out since other serogroups and species may cause disease, antigen may not be present in urine in the early infection, and the level of antigen present in the urine maybe below the detection limit of the test Urine MID-STREAM URINE SPECIMEN / Unknown Collection / Unknown 02/01/2025 12:03 PM EST 02/01/2025 12:05 PM EST [employer] MICROBIOLOGY - GENERAL ORDERAB LES Final Result Performing Organization Address [facility] Co de Phone Number [facility] [address] [place] [address], [place] [phone] * (ABNORMAL) CBC and Differential (02/01/2025 5:25 AM EST) [facility] WBC 10.33 4.00 - 11.00 K/uL 02/01/2025 5:30 AM [facility] RBC 2.40(L) 4.10 - 5.60 M/uL 02/01/2025 5:30 AM [facility] Hemoglobin 7.0(L) 12.7 - 16.7 g/dL 02/01/2025 5:30 AM [facility] Hematocrit 22.5(L) 38.1 - 50.1 % 02/01/2025 5:30 AM [facility] MCH 29.2 23.0 - 37.0 pg 02/01/2025 5:30 AM [facility] MCHC 31.1 29.0 - 38.0 g/dL 02/01/2025 5:30 AM [facility] MCV 94 82 - 98 fL 02/01/2025 5:30 AM [facility] RDW 16.2(H) 11.5 - 14.5 % 02/01/2025 5:30 AM [facility] Platelet Count 306 150 - 450 K/uL 02/01/2025 5:30 AM [facility] MPV 9.8 6.0 - 14.0 fL 02/01/2025 5:30 AM [facility] Neutrophil 89.3 % 02/01/2025 5:30 AM [facility] Lymphocyte 6.9 % 02/01/2025 5:30 AM [facility] Monocyte 1.0 % 02/01/2025 5:30 AM [facility] Eosinophil 0.2 % 02/01/2025 5:30 AM [facility] Basophil 0.4 % 02/01/2025 5:30 AM [facility] Immature Granulocyte ([place], Myelo, Promyelocyte) 2.2 % 02/01/2025 5:30 AM [facility] Absolute Neutrophil Count 9.23(H) 1.50 - 7.70 K/uL 02/01/2025 5:30 AM [facility] Absolute Immature Granulocyte ([place], Myelo, Promyelocyte) 0.23(H) 0.00 - 0.09 K/uL 02/01/2025 5:30 AM [facility] Absolute Lymphocyte Count 0.71(L) 1.50 - 4.00 K/uL 02/01/2025 5:30 AM [facility] Absolute Monocyte Count 0.10(L) 0.16 - 1.26 K/uL 02/01/2025 5:30 AM [facility] Absolute Eosinophil Count 0.02(L) 0.15 - 0.30 K/uL 02/01/2025 5:30 AM [facility] Absolute Basophil Count 0.04 0.00 - 0.21 K/uL 02/01/2025 5:30 AM [facility] Blood PERIPHERAL BLOOD SPECIMEN / Unknown Venipuncture / Unknown 02/01/2025 5:25 AM EST 02/01/2025 5:27 AM EST ITema LAB BLOOD ORDERABLES Final Res ult Performing Organization Address [facility] [place] [place] [address] * Lactic Acid (02/01/2025 5:25 AM EST) Lactic Acid, Venous, Peripheral 0.5 0.5 - 2.0 mmol/L 02/01/2025 5:51 AM [facility] Blood Venipuncture / Unknown 02/01/2025 5:25 AM EST 02/01/2025 5:27 AM EST opinions.h LAB BLOOD ORDERABLES Final Res ult Performing Organization Address City/[facility] Co de Phone Number [address] [address] * (ABNORMAL) Hepatic Function Panel (02/01/2025 5:25 AM EST) Total Protein 6.7 6.2 - 8.2 g/dL 02/01/2025 6:02 AM [facility] Albumin, Blood 3.7 3.4 - 5.2 g/dL 02/01/2025 6:02 AM [facility] Globulin Result 3.0 2.0 - 4.0 g/dL 02/01/2025 6:02 AM [facility] Total Bilirubin 0.3 0.2 - 1.2 mg/dL 02/01/2025 6:02 AM [facility] Direct Bilirubin 0.1 0.1 - 0.5 mg/dL 02/01/2025 6:02 AM [facility] Alkaline Phosphatase 245(H) 30 - 115 U/L 02/01/2025 6:02 AM [facility] AST (SGOT) 11 11 - 40 U/L 02/01/2025 6:02 AM [facility] ALT (SGPT) 13 7 - 40 U/L 02/01/2025 6:02 AM [facility] Blood PERIPHERAL BLOOD SPECIMEN / Unknown Venipuncture / Unknown 02/01/2025 5:25 AM EST 02/01/2025 5:27 AM EST opinions.h LAB BLOOD ORDERABLES Final Res ult Performing Organization Address City/[facility] [place] [place] [address] * (ABNORMAL) Phosphorus (02/01/2025 5:25 AM EST) Phosphorus 1.7(L) 2.3 - 4.6 mg/dL 02/01/2025 6:02 AM [facility] Blood PERIPHERAL BLOOD SPECIMEN / Unknown Venipuncture / Unknown 02/01/2025 5:25 AM EST 02/01/2025 5:27 AM EST opinions.h LAB BLOOD ORDERABLES Final Res ult [address] [address] * Magnesium (02/01/2025 5:25 AM EST) Magnesium, Blood 1.9 1.6 - 2.6 mg/dL 02/01/2025 6:02 AM [facility] Blood PERIPHERAL BLOOD SPECIMEN / Unknown Venipuncture / Unknown 02/01/2025 5:25 AM EST 02/01/2025 5:27 AM EST us Tessera Atbrox DO LAB BLOOD ORDERABLES Final Res ult Performing Organization Address City/[facility]/ZIP Co de Phone Number [facility] [address] [place] [address] * (ABNORMAL) Basic Metabolic Panel (02/01/2025 5:25 AM EST) Sodium 139 135 - 146 mmol/L 02/01/2025 6:02 AM EST [facility] Potassium 5.5(H) 3.4 - 5.2 mmol/L 02/01/2025 6:02 AM EST [facility] Chloride 103 98 - 110 mmol/L 02/01/2025 6:02 AM [facility] Total CO2/Bicarbonat e 23(L) 24 - 32 mmol/L 02/01/2025 6:02 AM EST [facility] Anion Gap 14 2 - 15 mmol/L 02/01/2025 6:02 AM [facility] BUN 64(H) 7 - 24 mg/dL 02/01/2025 6:02 AM [facility] Creatinine, Blood 10.20(H) 0.60 - 1.30 mg/dL 02/01/2025 6:02 AM [facility] Glucose, Blood 145(H) 50 - 100 mg/dL 02/01/2025 6:02 AM [facility] Calcium 9.7 8.5 - 10.5 mg/dL 02/01/2025 6:02 AM [facility] Estimated GFR (MDRD) 5(L) >=60 mL/min/BSA 02/01/2025 6:02 AM [facility] Blood PERIPHERAL BLOOD SPECIMEN / Unknown Venipuncture / Unknown 02/01/2025 5:25 AM EST 02/01/2025 5:27 AM EST opinions.h LAB BLOOD ORDERABLES Final Res ult Performing Organization Address City/[facility]/ZIP Co de Phone Number [facility] [address] [place] [address] * Coronavirus SARS-CoV-2 and Influenza A/B (02/01/2025 2:47 AM EST) Coronavirus SARS-CoV-2 Not Detected Not Detected ORLIN JONA 02/01/2025 3:27 AM EST [facility] Influenza A Not Detected Not Detected ORLIN JONA 02/01/2025 3:27 AM EST [facility] Comment: A negative test does not rule out infection with an influenza virus. Influenza B Not Detected Not Detected ORLIN JONA 02/01/2025 3:27 AM EST [facility] Comment:A negative test does not rule out infection with an influenza virus. xNasopharyngeal NASOPHARYNGEAL SWAB / Unknown Collection / Unknown 02/01/2025 2:47 AM EST 02/01/2025 3:03 AM EST [facility] - 02/01/2025 3:27 AM EST Test performed using the Eliezer orlin JONA CoV-2 & Influenza RT-PCR assay, which has received emergency use authorization (EUA) by the U.S. Food and Drug Administration. Test performance has been verified by the [facility]. A Negative test result means that SARS- CoV-2 RNA was not present in the specimen [...] patient management decisions. Fact sheet for providers: https://www.fda.gov/media/027550/download Fact sheet for patients: https://www.fda.gov/media/014581/download Method: Real time polymerase chain reaction us Tessera Strand DO BODY FLUIDS AND STOOLS ORDERAB LES Final Result [facility] [address] [place] [address] * Nasal MRSA/SA By PCR (02/01/2025 2:47 AM EST) MRSA PCR Negative Negative 02/01/2025 12:00 PM EST [facility] S. aureus PCR Negative Negative 02/01/2025 12:00 PM EST [facility] Swab BOTH ANTERIOR NARES / Unknown 02/01/2025 2:47 AM EST 02/01/2025 3:03 AM EST us Joselito Soni DO MICROBIOLOGY - GENERAL ORDERAB LES Final Result [facility] [address] [place] [address], * (ABNORMAL) Venous Blood Gas (02/01/2025 12:25 AM EST) FLOW RATE 45.0 02/01/2025 12:40 AM EST [facility] FIO2 21 % 02/01/2025 12:40 AM EST [facility] Method,O2 Admin Hi-Flow 12:40 AM EST [facility] pH, Venous 7.30(L) 7.32 - 7.42 02/01/2025 12:40 AM EST [facility] pCO2, Venous 49 38 - 49 mmHg 02/01/2025 12:40 AM EST [facility] pO2, Venous 51 No Reference Range mmHg 02/01/2025 12:40 AM EST [facility] HCO3, Venous 24 18 - 32 mmol/L 02/02/20 25 12:40 AM EST [facility] % O2Hb, Venous 82 No Established Reference Range % 02/01/2025 12:40 AM EST [facility] Base Excess, Venous -2.5(L) 0.0 - 3.0 mmol/L 02/01/2025 12:40 AM EST [facility] Carboxyhemoglob in, VBG 1.8(H) 0.5 - 1.5 % 02/01/2025 12:40 AM EST [facility] Methemoglobin, VBG 1.4(H) <1.0 % 02/01/2025 12:40 AM EST [facility] Patient Temperature 98.0 02/01/2025 12:40 AM EST [facility] Blood Venipuncture / Unknown 02/01/2025 12:25 AM EST 02/01/2025 12:38 AM EST us Jacinto JOHNSTON LAB BLOOD ORDERABLES Final Resu lt [facility] [address] [place] [address] [phone] * (ABNORMAL) Venous Blood Gas (01/31/2025 10:32 PM EST) FLOW RATE 45.0 01/31/2025 10:38 PM EST [facility] FIO2 21 % 01/31/2025 10:38 PM EST [facility] Method,O2 Admin Hi-Flow 10:38 PM EST [facility] pH, Venous 7.26(L) 7.32 - 7.42 01/31/2025 10:38 PM EST [facility] pCO2, Venous 54(H) 38 - 49 mmHg 01/31/2025 10:38 PM EST [facility] pO2, Venous 38 No Reference Range mmHg 01/31/2025 10:38 PM EST [facility] HCO3, Venous 25 18 - 32 mmol/L 02/01/20 10:38 PM EST [facility] % O2Hb, Venous 65 No Established Reference Range % 01/31/2025 10:38 PM EST [facility] Base Excess, Venous -2.5(L) 0.0 - 3.0 mmol/L 01/31/2025 10:38 PM EST [facility] Carboxyhemoglob in, VBG 1.9(H) 0.5 - 1.5 % 01/31/2025 10:38 PM EST [facility] Methemoglobin, VBG 1.3(H) <1.0 % 01/31/2025 10:38 PM EST [facility] Patient Temperature 98.0 01/31/2025 10:38 PM EST [facility] Blood Venipuncture / Unknown 01/31/2025 10:32 PM EST 01/31/2025 10:37 PM EST us Jacinto JOHNSTON LAB BLOOD ORDERABLES Final Resu lt Performing Organization Address [facility]/ZIP Co de Phone Number [facility] [address] [place] [address] [phone] * (ABNORMAL) Venous Blood Gas (01/31/2025 8:26 PM EST) FLOW RATE 3.0 01/31/2025 8:41 PM EST [facility] Method,O2 Admin OXY-Mask 8:41 PM EST [facility] pH, Venous 7.24(L) 7.32 - 7.42 01/31/2025 8:41 PM EST [facility] pCO2, Venous 60(H) 38 - 49 mmHg 01/31/2025 8:41 PM EST [facility] pO2, Venous 44 No Reference Range mmHg 01/31/2025 8:41 PM EST [facility] HCO3, Venous 26 18 - 32 mmol/L 02/01/20 25 8:41 PM EST [facility] % O2Hb, Venous 72 No Established Reference Range % 01/31/2025 8:41 PM EST [facility] Base Excess, Venous -1.9(L) 0.0 - 3.0 mmol/L 01/31/2025 8:41 PM EST [facility] Carboxyhemoglob in, VBG 1.8(H) 0.5 - 1.5 % 01/31/2025 8:41 PM EST [facility] Methemoglobin, VBG 1.4(H) <1.0 % 01/31/2025 8:41 PM EST [facility] Patient Temperature 98.0 01/31/2025 8:41 PM EST [facility] Blood Venipuncture / Unknown 01/31/2025 8:26 PM EST 01/31/2025 8:40 PM EST Jacinto JOHNSTON LAB BLOOD ORDERABLES Final Resu lt Performing Organization Address [facility]/ZIP Co de Phone Number [facility] [address] [place] [address] [phone] * XR Chest 1 Vw Portable (01/31/2025 7:36 PM EST) Anatomical Region Laterality Modality Chest Digital Radiogra phy Impressions 01/31/2025 8:25 PM EST Low lung volumes. No lobar infiltrate. Probable small bilateral pleural effusions. Narrative 01/31/2025 8:25 PM EST EXAM DESCRIPTION: XR CHEST 1 VW PORTABLE 01/31/2025 6:54 pm CLINICAL HISTORY: Found down. ETOH intoxication COMPARISON: 12/26/2024. TECHNIQUE: Single AP portable view of the chest. FINDINGS: No lines and tubes are identified. There is a dialysis catheter entering from the right IJ terminating in the right atrium. Line appears well-positioned. No pneumothorax. The costophrenic angles are clear. No pleural effusions. No pneumothorax is identified. Low lung volumes with probable small bilateral pleural effusions. No focal infiltrate. The bones and soft tissues appear normal for age. Resulting Agency Comment [id number] Procedure Note Lena Gonzalez MD - 01/31/2025 EXAM DESCRIPTION: XR CHEST 1 VW PORTABLE 01/31/2025 6:54 pm CLINICAL HISTORY: Found down. ETOH intoxication COMPARISON: 12/26/2024. TECHNIQUE: Single AP portable view of the chest. FINDINGS: No lines and tubes are identified. There is a dialysis catheter entering from the right IJ terminating in the right atrium. Line appears well-positioned. No pneumothorax. The costophrenic angles are clear. No pleural effusions. No pneumothorax is identified. Low lung volumes with probable small bilateral pleural effusions. No focal infiltrate. The bones and soft tissues appear normal for age. IMPRESSION: Low lung volumes. No lobar infiltrate. Probable small bilateral pleural effusions. Jacinto JOHNSTON IMRufus DIAGNOSTIC IMAGING ORDERABL ES Final Result * CT Head WO Contrast (01/31/2025 6:55 PM EST) Anatomical Region Laterality Modality Head Computed Tomogra phy Impressions 01/31/2025 7:27 PM EST No acute intracranial abnormalities are detected. No evidence of acute intracranial hemorrhage or large vessel territorial infarct. Narrative 01/31/2025 7:27 PM EST EXAM DESCRIPTION: CT HEAD WO CONTRAST CLINICAL HISTORY: Found down. Dialysis patient. ETOH intoxication. COMPARISON: 01/27/2025. TECHNIQUE: Thin section axial images through the head were performed. Coronal reconstructions were also obtained. To my knowledge the head CT was performed within 24 hours of the patient's arrival. FINDINGS: Ventricles and sulci: The ventricles, cisterns, and sulci are moderately enlarged compatible with age-related tissue loss. Cerebral/cerebellar hemispheres: There is no evidence of acute large vessel territorial infarction. There is no intracranial hemorrhage No significant white matter disease is present. There is no mass effect or midline shift. Extra-axial spaces: There is no abnormal extra-axial fluid. Vascular: No significant calcification in intracranial arteries Globes/paranasal sinuses: The globes are intact The visualized paranasal sinuses and mastoid air cells are aerated Bones/soft tissues: There is no displaced calvarial fracture There is no significant soft tissue swelling. Resulting Agency Comment [id number] Procedure Note Lena Gonzalez MD - 01/31/2025 EXAM DESCRIPTION: CT HEAD WO CONTRAST CLINICAL HISTORY: Found down. Dialysis patient. ETOH intoxication. COMPARISON: 01/27/2025. TECHNIQUE: Thin section axial images through the head were performed. Coronal reconstructions were also obtained. To my knowledge the head CT was performed within 24 hours of the patient's arrival. FINDINGS: Ventricles and sulci: The ventricles, cisterns, and sulci are moderately enlarged compatible with age-related tissue loss. Cerebral/cerebellar hemispheres: There is no evidence of acute large vessel territorial infarction. There is no intracranial hemorrhage No significant white matter disease is present. There is no mass effect or midline shift. Extra-axial spaces: There is no abnormal extra-axial fluid. Vascular: No significant calcification in intracranial arteries Globes/paranasal sinuses: The globes are intact The visualized paranasal sinuses and mastoid air cells are aerated Bones/soft tissues: There is no displaced calvarial fracture There is no significant soft tissue swelling. IMPRESSION: No acute intracranial abnormalities are detected. No evidence of acute intracranial hemorrhage or large vessel territorial infarct. Jacinto JOHNSTON IMG CT ORDERABLES Final Result * ECG 12 lead (01/31/2025 5:14 PM EST) Ventricular Heart Rate 83 BPM EKG BUR MUSE Atrial Heart Rate 83 BPM EKG B[facility] MUSE NC Interval 206 ms EKG BUR MUSE QRSD Interval 142 ms EKG BUR MUSE QT Interval 396 ms EKG BUR MUSE QTC Interval 465 ms EKG BUR MUSE P [place] 52 degrees EKG BUR MUSE R [place] -60 degrees EKG BUR MUSE T Wave [place] 33 degrees EKG BUR MUSE 01/31/2025 5:00 PM EST 02/01/2025 11:54 AM EST Narrative EKG BUR MUSE - 02/01/2025 11:54 AM EST Normal sinus rhythm Left axis deviation Right bundle branch block Left anterior fascicular block --- Bifascicular block --- Abnormal ECG No significant change was found Confirmed by Dianelys Milner ([email or web address]) ([id number]) on 02/01/2025 11:54:09 AM Procedure Note Dianelys Milner DO - 02/01/2025 Normal sinus rhythm Left axis deviation Right bundle branch block Left anterior fascicular block --- Bifascicular block --- Abnormal ECG No significant change was found Confirmed by Dianelys Milner) ([id number]) on 02/01/2025 11:54:09 AM us Wilfredo Taveras DO ECG ORDERABLES Final R esult Performing Organization Address City/[facility]/ZIP Co de Phone Number EKG [facility]UBIA M[facility] [address] [place] [address] * POCT Glucose (01/31/2025 5:12 PM EST) Glucose, POC 101 70 - 118 mg/dL 01/31/2025 5:[address] [facility] Blood 01/31/2025 5:12 PM EST 01/31/2025 5:20 PM EST us Provider Not In System POCT ORDERABLES - DEVICE Final Result Performing Organization Address City/[facility]/ZIP Co de Phone Number [facility] [address] [place] [address] * (ABNORMAL) Procalcitonin (01/31/2025 5:06 PM EST) Pathologist [facility] Procalcitonin 1.40(H) <0.15 ng/mL 01/31/2025 8:[address] [facility] Comment: Interpretation of PCT levels between 0.5 ng/mL and 2.0 ng/mL requires clinical correlation to evaluate for infectious or non-infectious conditions known to induce changes in PCT levels Blood PERIPHERAL BLOOD SPECIMEN / Unknown Venipuncture / Unknown 01/31/2025 5:06 PM EST 01/31/2025 5:08 PM EST Jacinto JOHNSTON LAB BLOOD ORDERABLES Final Resu lt Performing Organization Address [facility] Co de Phone Number [facility] [address] [place] [address] * CK (Creatine Kinase) (01/31/2025 5:06 PM EST) [facility] Creatine Kinase Total (CK) 44 30 - 194 U/L 01/31/2025 6:[address] [facility] Blood PERIPHERAL BLOOD SPECIMEN / Unknown Venipuncture / Unknown 01/31/2025 5:06 PM EST 01/31/2025 5:08 PM EST Jacinto JOHNSTON LAB BLOOD ORDERABLES Final Resu lt Performing Organization Address [facility] Co de Phone Number [facility] [address] [place] [address] * Alcohol (01/31/2025 5:06 PM EST) [facility] Alcohol <10 <10 mg/dL 01/31/2025 5:[address] [facility] Blood PERIPHERAL BLOOD SPECIMEN / Unknown Venipuncture / Unknown 01/31/2025 5:06 PM EST 01/31/2025 5:08 PM EST Wilfredo Taveras DO LAB BLOOD ORDERABLES Fi nal Result Performing Organization Address [facility] Co de Phone Number [facility] [address] [place] [address] * (ABNORMAL) CBC and Differential (01/31/2025 5:06 PM EST) WBC 12.83(H) 4.00 - 11.00 K/uL 01/31/2025 5:12 PM [facility] RBC 2.90(L) 4.10 - 5.60 M/uL 01/31/2025 5:12 PM [facility] Hemoglobin 8.4(L) 12.7 - 16.7 g/dL 01/31/2025 5:12 PM [facility] Hematocrit 27.4(L) 38.1 - 50.1 % 01/31/2025 5:12 PM [facility] MCH 29.0 23.0 - 37.0 pg 01/31/2025 5:12 PM [facility] MCHC 30.7 29.0 - 38.0 g/dL 01/31/2025 5:12 PM [facility] MCV 95 82 - 98 fL 01/31/2025 5:12 PM [facility] RDW 16.0(H) 11.5 - 14.5 % 01/31/2025 5:12 PM [facility] Platelet Count 336 150 - 450 K/uL 01/31/2025 5:12 PM [facility] MPV 10.2 6.0 - 14.0 fL 01/31/2025 5:12 PM [facility] Neutrophil 74.0 % 01/31/2025 5:12 PM [facility] Lymphocyte 13.2 % 01/31/2025 5:12 PM [facility] Monocyte 7.2 % 01/31/2025 5:12 PM [facility] Eosinophil 2.7 % 01/31/2025 5:12 PM [facility] Basophil 0.7 % 01/31/2025 5:12 PM [facility] Immature Granulocyte ([place], Myelo, Promyelocyte) 2.2 % 01/31/2025 5:12 PM [facility] Absolute Neutrophil Count 9.51(H) 1.50 - 7.70 K/uL 01/31/2025 5:12 PM [facility] Absolute Immature Granulocyte ([place], Myelo, Promyelocyte) 0.28(H) 0.00 - 0.09 K/uL 01/31/2025 5:12 PM [facility] Absolute Lymphocyte Count 1.69 1.50 - 4.00 K/uL 01/31/2025 5:12 PM [facility] Absolute Monocyte Count 0.92 0.16 - 1.26 K/uL 01/31/2025 5:12 PM [facility] Absolute Eosinophil Count 0.34(H) 0.15 - 0.30 K/uL 01/31/2025 5:12 PM [facility] Absolute Basophil Count 0.09 0.00 - 0.21 K/uL 01/31/2025 5:12 PM [facility] Blood PERIPHERAL BLOOD SPECIMEN / Unknown Venipuncture / Unknown 01/31/2025 5:06 PM EST 01/31/2025 5:08 PM EST Wilfredo Taveras DO LAB BLOOD ORDERABLES Fi nal Result [facility] [address] [place] [address] * (ABNORMAL) Comprehensive Metabolic Panel (01/31/2025 5:06 PM EST) Sodium 141 135 - 146 mmol/L 01/31/2025 5:35 PM [facility] Potassium 5.7(H) 3.4 - 5.2 mmol/L 01/31/2025 5:35 PM [facility] Chloride 103 98 - 110 mmol/L 01/31/2025 5:35 PM [facility] Total CO2/Bicarbonate 22(L) 24 - 32 mmol/L 01/31/2025 5:35 PM [facility] Anion Gap 16(H) 2 - 15 mmol/L 01/31/2025 5:35 PM [facility] BUN 59(H) 7 - 24 mg/dL 01/31/2025 5:35 PM [facility] Creatinine, Blood 9.30(H) 0.60 - 1.30 mg/dL 01/31/2025 5:35 PM [facility] Glucose, Blood 102(H) 50 - 100 mg/dL 01/31/2025 5:35 PM [facility] Calcium 9.3 8.5 - 10.5 mg/dL 01/31/2025 5:35 PM [facility] Total Protein 7.4 6.2 - 8.2 g/dL 01/31/2025 5:35 PM [facility] Albumin, Blood 4.0 3.4 - 5.2 g/dL 01/31/2025 5:35 PM [facility] Globulin Result 3.4 2.0 - 4.0 g/dL 01/31/2025 5:35 PM [facility] AST (SGOT) 19 11 - 40 U/L 01/31/2025 5:35 PM [facility] Comment:Specimen hemolyzed; result may be invalid. Interpret with caution. ALT (SGPT) 16 7 - 40 U/L 01/31/2025 5:35 PM [facility] Alkaline Phosphatase 267(H) 30 - 115 U/L 01/31/2025 5:35 PM [facility] Total Bilirubin 0.3 0.2 - 1.2 mg/dL 01/31/2025 5:35 PM [facility] Estimated GFR (MDRD) 6(L) >=60 mL/min/BSA 01/31/2025 5:35 PM [facility] Blood PERIPHERAL BLOOD SPECIMEN / Unknown Venipuncture / Unknown 01/31/2025 5:06 PM EST 01/31/2025 5:08 PM EST Wilfredo Taveras DO LAB BLOOD ORDERABLES Fi nal Result [facility] [address] [place] [address] documented in this encounter Visit Diagnoses Diagnosis Acute on chronic respiratory failure with hypoxia and hypercapnia ([facility])- Primary HAP (hospital-acquired pneumonia) Acute hypercapnic respiratory failure ([facility]) Alcohol use disorder Essential hypertension Unspecified essential hypertension Anxiety and depression ESRD (end stage renal disease) on dialysis ([facility]) End stage renal disease Gastro-esophageal reflux disease without esophagitis Hyperlipidemia, unspecified Chronic obstructive pulmonary disease, unspecified ([facility]) Sepsis ([facility]) Somnolence Other alteration of consciousness Hyperkalemia Hyperpotassemia documented in this encounter Admitting Diagnoses Diagnosis Acute on chronic respiratory failure with hypoxia and hypercapnia ([facility]) documented in this encounter Administered Medications Inactive Administered Medications - up to 3 most recent administrations Medication Order MAR Action Action Date Dose Rate Site arformoteroL (BROVANA) nebulizer solution 15 mcg 15 mcg, Nebulization, 2 times daily (RT), First dose on 02/01/25 at 0800, Until Discontinued Given 02/01/2025 8:05 AM EST 15 mcg atorvaSTATin (LIPITOR) tablet 80 mg 80 mg, Oral, At bedtime, First dose on 02/01/25 at 2100, Until Discontinued Given 02/01/2025 8:27 PM EST 80 mg bisacodyl (DULCOLAX) EC tablet 10 mg 10 mg, Oral, Daily PRN, Starting on 02/01/25 at 0222, Until 02/02/25 at 1220, constipation, 2nd line; Give 12 hours after polyethylene glycol for unrelieved constipation. bisacodyl (DULCOLAX) suppository 10 mg 10 mg, Rectal, Daily PRN, Starting on 02/01/25 at 0222, Until 02/02/25 at 1220, constipation, To be used if patient NOT tolerating PO brexpiprazole (REXULTI) tablet 3 mg 3 mg, Oral, Daily, First dose on 02/01/25 at 0900 Given 02/02/2025 8:06 AM EST 3 mg Given 02/01/2025 8:01 AM EST 3 mg budesonide (PULMICORT) nebulizer solution 0.5 mg 0.5 mg, Nebulization, Every morning and afternoon, First dose on 02/01/25 at 0900, Until Discontinued Given 02/01/2025 5:51 PM EST 0.5 mg Given 02/01/2025 8:05 AM EST 0.5 mg calcium gluconate 1 g in 0.9% sodium chloride (NS) 50 mL premix 1 g, Intravenous, Once, 1 dose, On 01/31/25 at 1820 New Bag 01/31/2025 7:16 PM EST 1 g clopidogreL (PLAVIX) tablet 75 mg 75 mg, Oral, Daily, First dose on 02/01/25 at 0900, Until Discontinued Given 02/02/2025 8:01 AM EST 75 mg Given 02/01/2025 8:01 AM EST 75 mg dextrose 50% (D50W) injection 50 mL 50 mL, Intravenous, Once, 1 dose, On 01/31/25 at 1820 Given 01/31/2025 7:18 PM EST 50 mL epoetin naif-epbx (RETACRIT) injection 10,000 Units 10,000 Units Once in dialysis, Intravenous, On 02/01/25 at 1235, For 1 dose, Dialysis, Hold if hemoglobin > 11; to be administered during HD session. Given 02/01/2025 2:26 PM EST 10,000 Units ferrous sulfate tablet 325 mg 325 mg, Oral, Daily with breakfast, First dose on 02/01/25 at 0800, Until Discontinued Given 02/02/2025 8:00 AM EST 325 mg Given 02/01/2025 8:01 AM EST 325 mg folic acid (FOLVITE) tablet 1 mg 1 mg, Oral, Daily, First dose on 02/01/25 at 0900, Until Discontinued Given 02/02/2025 8:00 AM EST 1 mg Given 02/01/2025 8:01 AM EST 1 mg gabapentin (NEURONTIN) capsule 100 mg 100 mg, Oral, At bedtime, First dose on 02/01/25 at 2100, Until Discontinued Given 02/01/2025 8:27 PM EST 100 mg heparin (porcine) injection 5,000 Units 5,000 Units, Subcutaneous, 3 times daily (heparin), First dose on 02/01/25 at 0600, Until Discontinued Given 02/02/2025 5:04 AM EST 5,000 Units Given 02/01/2025 8:27 PM EST 5,000 Units A bdominal LUQ Given 02/01/2025 5:14 AM EST 5,000 Units hydrOXYzine HCL (ATARAX) tablet 10 mg 10 mg, Oral, Every 8 hours PRN, Starting on 02/01/25 at 0900, Until 02/02/25 at 1220, anxiety Given 02/01/2025 8:02 AM EST 10 mg insulin regular (HumuLIN R, NovoLIN R) 100 unit/mL injection 5 Units 5 Units, Intravenous, Once, 1 dose, On 01/31/25 at 1820 Given 01/31/2025 7:15 PM EST 5 Units lamoTRIgine (LaMICtal) tablet 25 mg 25 mg, Oral, Daily, First dose on 02/01/25 at 0900, Until Discontinued Given 02/02/2025 8:06 AM EST 25 mg Given 02/01/2025 8:02 AM EST 25 mg LORazepam (ATIVAN) tablet 1 mg 1 mg, Oral, Every 4 hours PRN, Starting on 02/01/25 at 0931, Until 02/02/25 at 1220, anxiety Given 02/01/2025 10:07 AM EST 1 mg melatonin tablet 6 mg 6 mg, Oral, Every evening, First dose on 02/01/25 at 0241, Until Discontinued Given 02/01/2025 8:27 PM EST 6 mg methylPREDNISolone sodium succinate (PF) (SOLU-Medrol) injection 125 mg 125 mg, Intravenous, Once, On 01/31/25 at 2126, For 1 dose, STAT Given 01/31/2025 10:24 PM EST 125 mg methylPREDNISolone sodium succinate (PF) (SOLU-Medrol) injection 60 mg 60 mg, Intravenous, Every 8 hours scheduled, First dose on 02/01/25 at 0900, Routine Given 02/02/2025 8:01 AM EST 6 0 mg Given 02/02/2025 12:08 AM EST 60 mg Given 02/01/2025 5:51 PM EST 60 mg OLANZapine (ZyPREXA) tablet 10 mg 10 mg, Oral, 2 times daily, First dose on 02/01/25 at 0900, Until Discontinued Given 02/02/2025 8:01 AM EST 10 mg Given 02/01/2025 8:27 PM EST 10 mg Given 02/01/2025 8:01 AM EST 10 mg ondansetron (ZOFRAN) injection 4 mg 4 mg, Intravenous, Every 8 hours PRN, nausea, vomiting, if NOT tolerating PO, Starting on 02/01/25 at 0222 ondansetron (ZOFRAN-ODT) disintegrating tablet 4 mg 4 mg, Oral, Every 8 hours PRN, Starting on 02/01/25 at 0222, Until 02/02/25 at 1220, nausea, vomiting, if tolerating PO pantoprazole (PROTONIX) DR tablet 40 mg 40 mg, Oral, 2 times daily, First dose on 02/01/25 at 0900, Until Discontinued Given 02/02/2025 8:00 AM EST 40 mg Given 02/01/2025 8:27 PM EST 40 mg Given 02/01/2025 8:01 AM EST 40 mg peripheral line: sodium chloride (NS) 0.9% flush 3 mL, Intravenous, Every 12 hours scheduled, First dose on Sun02/01/25 at 0900, Until Discontinued Given 02/02/2025 8:13 AM EST 3 mL Given 02/01/2025 8:28 PM EST 3 mL Given 02/01/2025 8:08 AM EST 3 mL peripheral line: sodium chloride 0.9 % (NS) flush 3 mL, Intravenous, Every 1 min PRN, Starting on 02/01/25 at 0222, Until 02/02/25 at 1220, line care piperacillin-tazobactam (ZOSYN) 2.25 g in sodium chloride 0.9% (NS) MBP 2.25 g, Intravenous, Administer over 30 Minutes, Every 12 hours, First dose on 01/31/25 at 2004, For 1 dose, Indication: Pneumonia, Antimicrobial Stewardship/Infectious Diseases clinician: Dr. Taveras [facility] 01/31/2025 8:12 PM EST 2.25 g 100 mL/hr piperacillin-tazobactam (ZOSYN) 2.25 g in sodium chloride 0.9% (NS) MBP 2.25 g, Intravenous, Administer over 30 Minutes, Every 12 hours, First dose on Sun02/01/25 at 0800, For 7 days, Indication: Sepsis, Antimicrobial Stewardship/Infectious Diseases clinician: overnight hospitalist [facility] Bag 02/02/2025 8:02 AM EST 2.25 g 100 mL/hr New Bag 02/01/2025 8:28 PM EST 2.25 g 100 mL/hr New Bag 02/01/2025 8:05 AM EST 2.25 g 100 mL/hr polyethylene glycol (MIRALAX) packet 17 g 17 g, Oral, Daily PRN, Starting on 02/01/25 at 0222, Until 02/02/25 at 1220, constipation, 1st line sertraline (ZOLOFT) tablet 100 mg 100 mg, Oral, 2 times daily, First dose on 02/01/25 at 0900, Until Discontinued Given 02/02/2025 8:01 AM EST 100 mg Given 02/01/2025 8:27 PM EST 100 mg Given 02/01/2025 8:01 AM EST 100 mg sevelamer carbonate (RENVELA) tablet 800 mg 800 mg, Oral, 3 times daily with meals, First dose on 02/01/25 at 0800, Until Discontinued Given 02/02/2025 8:03 AM EST 800 mg Given 02/01/2025 5:51 PM EST 800 mg Given 02/01/2025 11:57 AM EST 800 mg sodium zirconium cyclosilicate (LOKELMA) powder packet 10 g 10 g, Oral, Once, 1 dose, On 01/31/25 at 1752 Given 01/31/2025 6:02 PM EST 10 g thiamine tablet 100 mg 100 mg, Oral, Daily, First dose on 02/01/25 at 0900, Until Discontinued Given 02/02/2025 8:00 AM EST 100 mg Given 02/01/2025 8:01 AM EST 100 mg vancomycin (VANCOCIN) 1.5 gram/500 mL in 0.9 % sodium chloride (NS) IVPB premix 1,500 mg 500 mL 1,500 mg, Intravenous, Administer over 90 Minutes, Once, On 01/31/25 at 2009, For 1 dose, Indication: Community Acquired/Healthcare Associated Pneumonia New Bag 01/31/2025 8:59 PM EST 1,500 mg 333.3 mL/h r documented in this encounter Active and Recently Administered Medications Times are shown in EST. Scheduled Medication Order 01/31/2025 02/01/2025 02/02/2025 arformoteroL (BROVANA) nebulizer solution 15 mcg 15 mcg, Nebulization, 2 times daily (RT), First dose on 02/01/25 at 0800, Until Discontinued 804 (Given - Provider: Idania Tellez, RN) 0005 (Not Given - Provider: Kaitlin Zarate RN - Reason: Patient Refused)08 (Not Given - Provider: Wilfredo Crespo RN - Reason: Patient Refused) aspirin EC tablet 81 mg 81 mg, Oral, Daily, First dose on 02/01/25 at 0900, Until Discontinued, On hold since 02/01/2025 at 0240 until manually unheld 0240 (Held by provider - Provider: Joselito Soni DO - Reason: Other - Indicate below)0900 (Dose Auto Held - Provider: Joselito Soni DO) 0900 (Dose Auto Held - Provider: Joselito Soni DO)1220 (Unheld by provider - Provider: Automatic Discharge Provider) atorvaSTATin (LIPITOR) tablet 80 mg 80 mg, Oral, At bedtime, First dose on 02/01/25 at 2100, Until Discontinued 2026 (Given - Provider: Linda Oviedo, AVELINO) brexpiprazole (REXULTI) tablet 3 mg 3 mg, Oral, Daily, First dose on 02/01/25 at 0900 0801 (Given - Provider: Idania Tellez RN) 08 (Given - Provider: Wilfredo Crespo RN) budesonide (PULMICORT) nebulizer solution 0.5 mg 0.5 mg, Nebulization, Every morning and afternoon, First dose on 02/01/25 at 0900, Until Discontinued 804 (Given - Provider: Idania Tellez RN)175 (Given - Provider: Idania Tellez RN) 08 (Not Given - Provider: Wilfredo Crespo RN - Reason: Patient Refused) calcium gluconate 1 g in 0.9% sodium chloride (NS) 50 mL premix (COMPLETED) 1 g, Intravenous, Once, 1 dose, On 01/31/25 at 1820 1916 (New Bag - Provider: Kate Heath RN)2006 (Stopped - Provider: Kate Heath RN) clopidogreL (PLAVIX) tablet 75 mg 75 mg, Oral, Daily, First dose on 02/01/25 at 0900, Until Discontinued 800 (Given - Provider: Idania Tellez RN) 08 (Given - Provider: Wilfredo Crespo RN) dextrose 50% (D50W) injection 50 mL (COMPLETED) 50 mL, Intravenous, Once, 1 dose, On 01/31/25 at 1820 1918 (Given - Provider: Kate Heath RN) epoetin naif-epbx (RETACRIT) injection 10,000 Units (COMPLETED) 10,000 Units Once in dialysis, Intravenous, On 02/01/25 at 1235, For 1 dose, Dialysis, Hold if hemoglobin > 11; to be administered during HD session. 1426 (Given - Provider: Geoffrey Ayala RN) ferrous sulfate tablet 325 mg 325 mg, Oral, Daily with breakfast, First dose on 02/01/25 at 0800, Until Discontinued 08 (Given - Provider: Idania Tellez RN) 0800 (Given - Provider: Wilfredo Crespo RN) folic acid (FOLVITE) tablet 1 mg 1 mg, Oral, Daily, First dose on 02/01/25 at 0900, Until Discontinued 08 (Given - Provider: Idania Tellez RN) 08 (Given - Provider: Wilfredo Crespo RN) gabapentin (NEURONTIN) capsule 100 mg 100 mg, Oral, At bedtime, First dose on 02/01/25 at 2100, Until Discontinued 2026 (Given - Provider: Linda Oviedo RN) heparin (porcine) injection 5,000 Units 5,000 Units, Subcutaneous, 3 times daily (heparin), First dose on 02/01/25 at 0600, Until Discontinued 05 (Given - Provider: Kate Heath RN)175 (Canceled Entry - Provider: Idania Tellez RN)2026 (Given - Provider: Linda Oviedo RN) 050 (Given - Provider: Mahesh Thomson RN) insulin regular (HumuLIN R, NovoLIN R) 100 unit/mL injection 5 Units (COMPLETED) 5 Units, Intravenous, Once, 1 dose, On 01/31/25 at 1820 1915 (Given - Provider: Kate Heath RN) lamoTRIgine (LaMICtal) tablet 25 mg 25 mg, Oral, Daily, First dose on 02/01/25 at 0900, Until Discontinued 08 (Given - Provider: Idania Tellez RN) 08 (Given - Provider: Wilfredo Crespo RN) melatonin tablet 6 mg 6 mg, Oral, Every evening, First dose on 02/01/25 at 0241, Until Discontinued 313 (Not Given - Provider: Kate Heath RN - Reason: Other - Indicate below - Comment: pt resting well without mediation, patient does not want medication ATT)2026 (Given - Provider: Linda Oviedo RN) methylPREDNISolone sodium succinate (PF) (SOLU-Medrol) injection 125 mg (COMPLETED) 125 mg, Intravenous, Once, On 01/31/25 at 2126, For 1 dose, STAT 2224 (Given - Provider: Kate Heath, AVELINO) methylPREDNISolone sodium succinate (PF) (SOLU-Medrol) injection 60 mg 60 mg, Intravenous, Every 8 hours scheduled, First dose on 02/01/25 at 0900, Routine 0805 (Given - Provider: Idania Tellez RN)1751 (Given - Provider: Idania Tellez RN) 0008 (Given - Provider: Kaitlin Zarate RN)08 (Given - Provider: Wilfredo Crespo RN) metoprolol tartrate (LOPRESSOR) tablet 12.5 mg 12.5 mg, Oral, 2 times daily, First dose on 02/01/25 at 0241, Hold Parameters: HR, SBP, Hold for HR less than: 60 bpm, Hold for SBP less than: 100 mmHg, On hold since 02/01/2025 at 0240 until manually unheld 0240 (Held by provider - Provider: Joselito Soni DO - Reason: Abnormal Vitals)0241 (Dose Auto Held - Provider: Joselito Soni DO)0900 (Dose Auto Held - Provider: Joselito Soni DO)2100 (Dose Auto Held - Provider: Joselito Soni DO) 0900 (Dose Auto Held - Provider: Joselito Soni DO)1220 (Unheld by provider - Provider: Automatic Discharge Provider) OLANZapine (ZyPREXA) tablet 10 mg 10 mg, Oral, 2 times daily, First dose on 02/01/25 at 0900, Until Discontinued 800 (Given - Provider: Idania Tellez RN)2026 (Given - Provider: Linda Oviedo RN) 800 (Given - Provider: Wilfredo Crespo RN) pantoprazole (PROTONIX) DR tablet 40 mg 40 mg, Oral, 2 times daily, First dose on 02/01/25 at 0900, Until Discontinued 800 (Given - Provider: Idania Tellez RN)2026 (Given - Provider: Linda Oviedo RN) 08 (Given - Provider: Wilfredo Crespo RN) peripheral line: sodium chloride (NS) 0.9% flush(Linked Group 1) 3 mL, Intravenous, Every 12 hours scheduled, First dose on 02/01/25 at 0900, Until Discontinued 08 (Given - Provider: Idania Tellez RN)2027 (Given - Provider: Linda Oviedo RN) 08 (Given - Provider: Wilfredo Crespo RN) piperacillin-tazobactam (ZOSYN) 2.25 g in sodium chloride 0.9% (NS) MBP (COMPLETED) 2.25 g, Intravenous, Administer over 30 Minutes, Every 12 hours, First dose on 01/31/25 at 2004, For 1 dose, Indication: Pneumonia, Antimicrobial Stewardship/Infectious Diseases clinician: Dr. Taveras 2011 (New Bag - Provider: Kate Heath, RN)2046 (Stopped - Provider: Kate Heath RN) piperacillin-tazobactam (ZOSYN) 2.25 g in sodium chloride 0.9% (NS) MBP 2.25 g, Intravenous, Administer over 30 Minutes, Every 12 hours, First dose on 02/01/25 at 0800, For 7 days, Indication: Sepsis, Antimicrobial Stewardship/Infectious Diseases clinician: overnight hospitalist 804 (New Bag - Provider: Idania Tellez RN)2027 (New Bag - Provider: Linda Oviedo RN)2057 (Stopped - Provider: Kaitlin Zarate RN) 08 (New Bag - Provider: Wilfredo Crespo RN)1020 (Stopped - Provider: Lucrecia Huggins NP) sertraline (ZOLOFT) tablet 100 mg 100 mg, Oral, 2 times daily, First dose on 02/01/25 at 0900, Until Discontinued 08 (Given - Provider: Idania Tellez RN)2026 (Given - Provider: Linda Oviedo RN) 08 (Given - Provider: Wilfredo Crespo RN) sevelamer carbonate (RENVELA) tablet 800 mg 800 mg, Oral, 3 times daily with meals, First dose on 02/01/25 at 0800, Until Discontinued 800 (Given - Provider: Idania Tellez RN)1157 (Given - Provider: Idania Tellez RN)175 (Given - Provider: Idania Tellez RN) 08 (Given - Provider: Wilfredo Crespo RN)1200 (Canceled Entry - Provider: Automatic Discharge Provider - Comment: Automatically canceled at discontinue of medication order) sodium zirconium cyclosilicate (LOKELMA) powder packet 10 g (COMPLETED) 10 g, Oral, Once, 1 dose, On 01/31/25 at 1752 1802 (Given - Provider: Miriam Peña, AVELINO) thiamine tablet 100 mg 100 mg, Oral, Daily, First dose on 02/01/25 at 0900, Until Discontinued 0801 (Given - Provider: Idania Tellez RN) 0800 (Given - Provider: iWlfredo Crespo RN) vancomycin (VANCOCIN) 1.5 gram/500 mL in 0.9 % sodium chloride (NS) IVPB premix 1,500 mg 500 mL (COMPLETED) 1,500 mg, Intravenous, Administer over 90 Minutes, Once, On 01/31/25 at 2008, For 1 dose, Indication: Community Acquired/Healthcare Associated Pneumonia 2058 (New Bag - Provider: Alexandrea Benoit, AVELINO) 020 (Stopped - Provider: Kate Heath RN) PRN Medication Order 01/31/2025 02/01/2025 02/02/2025 acetaminophen (TYLENOL) tablet 500 mg 500 mg, Oral, Every 6 hours PRN, Starting on 02/01/25 at 0239, Until Sun02/02/25 at 1220, mild (1-3) pain, fever greater than 101 F bisacodyl (DULCOLAX) EC tablet 10 mg(Linked Group 2) 10 mg, Oral, Daily PRN, Starting on 02/01/25 at 0222, Until Sun02/02/25 at 1220, constipation, 2nd line; Give 12 hours after polyethylene glycol for unrelieved constipation. bisacodyl (DULCOLAX) suppository 10 mg(Linked Group 2) 10 mg, Rectal, Daily PRN, Starting on 02/01/25 at 0222, Until Sun02/02/25 at 1220, constipation, To be used if patient NOT tolerating PO hydrOXYzine HCL (ATARAX) tablet 10 mg 10 mg, Oral, Every 8 hours PRN, Starting on 02/01/25 at 0900, Until Sun02/02/25 at 1220, anxiety 0802 (Given - Provider: Aish a Gahm-Krishna, RN) ipratropium-albuteroL (DUONEB) 0.5-2.5 mg/3 mL nebulizer solution 3 mL 3 mL, Nebulization, Every 6 hours PRN, Starting on 02/01/25 at 0222, Until Sun02/02/25 at 1220, wheezing LORazepam (ATIVAN) tablet 1 mg 1 mg, Oral, Every 4 hours PRN, Starting on 02/01/25 at 0931, Until Sun02/02/25 at 1220, anxiety 1007 (Given - Provider: Fernando Tellez RN) midodrine (PROAMATINE) tablet 2.5 mg 2.5 mg, Oral, Daily PRN, Starting on 02/01/25 at 0239, Until Sun02/02/25 at 1220, sbp <100mm Hg ondansetron (ZOFRAN) injection 4 mg(Linked Group 3) 4 mg, Intravenous, Every 8 hours PRN, nausea, vomiting, if NOT tolerating PO, Starting on Sun02/01/25 at 0222 ondansetron (ZOFRAN-ODT) disintegrating tablet 4 mg(Linked Group 3) 4 mg, Oral, Every 8 hours PRN, Starting on 02/01/25 at 0222, Until Sun02/02/25 at 1220, nausea, vomiting, if tolerating PO peripheral line: sodium chloride 0.9 % (NS) flush(Linked Group 1) 3 mL, Intravenous, Every 1 min PRN, Starting on 02/01/25 at 0222, Until Sun02/02/25 at 1220, line care polyethylene glycol (MIRALAX) packet 17 g(Linked Group 2) 17 g, Oral, Daily PRN, Starting on 02/01/25 at 0222, Until Sun02/02/25 at 1220, constipation, 1st line Linked Groups Order Group 1: Insert and Maintain Peripheral IV (CANCELED) Routine, Continuous, Starting on Sun02/01/25 at 0223, Until Specified And peripheral line: sodium chloride (NS) 0.9% flushJump to med 3 mL, Intravenous, Every 12 hours scheduled, First dose on 02/01/25 at 0900, Until Discontinued And peripheral line: sodium chloride 0.9 % (NS) flushJump to med 3 mL, Intravenous, Every 1 min PRN, Starting on 02/01/25 at 0222, Until Sun02/02/25 at 1220, line care Group 2: polyethylene glycol (MIRALAX) packet 17 gJump to med 17 g, Oral, Daily PRN, Starting on 02/01/25 at 0222, Until 02/02/25 at 1220, constipation, 1st line Or bisacodyl (DULCOLAX) EC tablet 10 mgJump to med 10 mg, Oral, Daily PRN, Starting on 02/01/25 at 0222, Until 02/02/25 at 1220, constipation, 2nd line; Give 12 hours after polyethylene glycol for unrelieved constipation. Or bisacodyl (DULCOLAX) suppository 10 mgJump to med 10 mg, Rectal, Daily PRN, Starting on 02/01/25 at 0222, Until 02/02/25 at 1220, constipation, To be used if patient NOT tolerating PO Group 3: ondansetron (ZOFRAN) injection 4 mgJump to med 4 mg, Intravenous, Every 8 hours PRN, nausea, vomiting, if NOT tolerating PO, Starting on 02/01/25 at 0222 Or ondansetron (ZOFRAN-ODT) disintegrating tablet 4 mgJump to med 4 mg, Oral, Every 8 hours PRN, Starting on 02/01/25 at 0222, Until 02/02/25 at 1220, nausea, vomiting, if tolerating PO documented in this encounter Additional Health Concerns Infection Onset Date Last Indicated Resolved Time Rule-Out Respiratory Virus 02/01/2025 02/01/2025 1 04/03/2024 3:27 AM EST documented as of this encounter Care Teams Salon Stylist Relationship Specialty Start Date End Date Unknown, Provider, [address] [place] [id number] PCP - General 01/31/25 02/02/25 documented as of this encounter
--- OUTSIDE RECORDS SUMMARY | 2025-02-03 11:21 | XMS_ITS | Encounter Summary ---
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 Name Role Phone Akin Christianson NP Primary Care Provider [phone]- [phone] Reason for Visit * Reason Comments Shortness of Breath Encounter Details Date Type Department Care Team ([facility] Contact Info) Description 02/03/2025 11:21 AM EST - 02/04/2025 11:32 AM [facility] Emergency [facility] [address] [place] [address] Suzanna Stevens MD [address] [place] [address] Suicidal ideation (Primary Dx); Depression, unspecified depression type; Alcoholic intoxication with complication; End stage renal disease ([facility]); Healthcare-associated pneumonia Discharge Disposition: Psychiatric Hospital Social History Tobacco Use Types Packs/Day Years [...] and Family Not on file 03/10/2024 Attends Confucianism Services Not on file 03/10 Active Member [...] housing, medical care, and heating? Hard 02/01/2025 [facility] Occupat ional Health - Occupational Stress [...] money to buy more. Never true 02/02/20 25 Ran Out of Food in the Last [...] any time in the past 12 m [facility], were you homeless or living in a longterm (including now)? Yes 02/01/2025 B1300 Health Literacy Answer Date Recor ded How often do you need to hav e someone help you when you read instructions, pamphlets, or other written material from your doctor or pharmacy? Sometimes 01/28/2025 [facility] Utilities Answer Date Recorded In the past 12 months has th e [employer], gas, oil, or water [employer] threatened to shut off services in your home? Yes 02/01/2025 Food Insecurity Answer Date Recorded Within the past 12 months, y ou worried that your food would run out before you got the money to buy more. Never true 02/02/20 25 Within the past 12 months, t he [...] Sign Reading Time Taken Comments Blood Pressure 135/85 02/04/2025 11:31 AM EST Pulse 108 02/04/2025 11:31 AM EST Temperature 36.8 C (98.2 F) 02/04/2025 11:31 AM EST Respiratory Rate 18 02/04/2025 7:55 AM EST Oxygen Saturation 98% 02/04/2025 7:55 AM EST Inhaled Oxygen Concentration - - Weight - - Height - - Body Mass Index - - documented in this encounter Functional Status * Are you deaf or do you have serious difficulty hearing? Answer Date of Assessment Author No 02/03/2025 11:22 AM Tasha Davis * Are you blind or do you have serious difficulty seeing, even when wearing glasses? Answer Date of Assessment Author No 02/03/2025 11:22 AM Tasha Davisa * Do you have serious difficulty walking or climbing stairs? Answer Date of Assessment Author No 02/03/2025 11:22 AM Tasha Davisyra * Do you have difficulty dressing or bathing? Answer Date of Assessment Author No 02/03/2025 11:22 AM Tasha Davisa * Because of a physical, mental, or emotional condition, do you have difficulty doing errands alone such as visiting the doctor? Answer Date of Assessment Author No 02/03/2025 11:22 AM Tasha Davisyra documented as of this encounter Mental Status * Because of a physical, mental, or emotional condition, do you have serious difficulty concentrating, remembering, or making decisions? Answer Entry Date Author No 02/03/2025 11:22 AM Tasha Davis documented in this encounter Discharge Instructions * Attachments The following attachments cannot be sent through Care Everywhere. * Planning to Quit Smoking (Thai) documented in this encounter Medications at Time [...] daily for 30 days. 30 tablet 04/21/2024 atorvaSTATin (LIPITOR) 80 MG tablet Take 1 tablet (80 mg total) by mouth at bedtime for 30 days. 30 tablet 04/21/2024 clopidogreL [...] as of this encounter Progress Notes * Marshall Lopez - 02/04/2025 10:24 AM EST Behavioral Health Crisis Consult- Contact Note Patient: Sushant Christianson : 1960 Admit Date: 02/03/2025 Date of Consult: 02/04/2025 Time of Consult: 10:24 AM Narrative: Patient: Sushant Christianson Accepting Facility: [facility] Accepting Facility Address: [address] [place] [address] Accepting MD: Dr Nolasco Arrival Time: 1pm arrival Nurse to Nurse Report: they will call for N2N Other Labs or Needs: N/A HCP/Guardian (if applicable): Reason for Section 12: SI Information Given To: Via secure chat Gregoria Clarke - 02/04/2025 7:57 AM EST Behavioral Health Crisis Consult- Contact Note Patient: Sushant Christianson : 1960 Admit Date: 02/03/2025 Date of Consult: 02/04/2025 Time of Consult: 7:57 AM Narrative: Bed Search Inpatient Unit Referral Date Referral Time Began Review Date Began Review Time Accepted Date Accepted Time Decline Date Decline Time Reason If Decline Comment [facility] Accessible 02/03/25 2:11 PM EST [facility] 02/03/25 2:11 PM EST [facility] Access[facility] 02/03/25 2:11 PM EST [facility] Accessible 02/03/25 2:11 PM EST [facility] 02/03/25 2:11 PM EST [facility] 02/03/25 2:11 PM EST [facility] Accessible 02/03/25 2:11 PM EST [facility] Accessible 02/03/25 2:12 PM EST Sushant Carlin [facility] Accessible 02/03/25 2:12 PM EST [facility] 02/03/25 2:12 PM EST [facility] Accessible 02/03/25 2:12 PM EST [facility] 02/03/25 2:12 PM EST [facility] 02/03/25 2:12 PM EST [facility] Accessible 02/03/25 2:12 PM EST [facility] Accessible 02/03/25 2:12 PM EST [facility] Accessible 02/03/25 2:12 PM EST [facility] 02/04/25 7:40 AM EST [facility] 02/04/25 7:40 AM EST [facility] Accessible 02/04/25 7:40 AM EST * PRESTON Stark - 02/04/2025 7:44 AM EST Images from the original note were not included. ED Psych Progress Note Sticky Note Vitals Date and Time Temp Pulse Resp BP SpO2 User 02/04/25 1131 98.2 ??F (36.8 ??C) 108 -- 135/85 -- ML 02/04/25 0755 98.4 ??F (36.9 ??C) 93 18 143/82 98 % IG 02/04/25 0405 97.8 ??F (36.6 ??C) 100 -- 115/80 -- MLR 02/04/25 0307 -- 100 20 115/80 99 % RD 02/04/25 0003 -- 99 18 116/69 98 % RD 02/03/252001 97.8 ??F (36.6 ??C) 99 -- 127/76 -- MLR 02/03/251955 -- 99 16 127/76 98 % MLR 02/03/25 170 -- 94 18 135/71 93 % [place] 02/03/25 1124 -- 105 -- 115/85 97 % [place] 02/03/25 1124 -- -- 18 -- -- AG ED Course as of 02/04/25 1402 Wed Feb 04, 2025 0743 No acute behavioral events reported overnight Patient was able to complete dialysis in the overnight hours with good effect. Next dialysis treatment should be on . IP LOC bed search continues [KB] 1031 Patient has been accepted for further psychiatric care at [facility] Accepting physician Dr. Nolasco [KB] ED Course User Index [KB] PRESTON Stark Clinical Impression 1. Suicidal ideation 2. Depression, unspecified depression type 3. Alcoholic intoxication with complication 4. End stage renal disease ([facility]) 5. Healthcare-associated pneumonia Disposion: Transfer Patient discussed with attending physician, Dr Tapia * Marshall John - 02/03/2025 2:12 PM EST Behavioral Health Crisis Consult- Contact Note Patient: Sushant Christianson : 1960 Admit Date: 02/03/2025 Date of Consult: 02/03/2025 Time of Consult: 2:12 PM Narrative: Bed Search Inpatient Unit Referral Date Referral Time Began Review Date Began Review Time Accepted Date Accepted Time Decline Date Decline Time Reason If Decline Comment [facility] Accessible 02/03/25 2:11 PM EST [facility] 02/03/25 2:11 PM EST [facility] Accessible 02/03/25 2:11 PM EST [facility] Accessible 02/03/25 2:11 PM EST [facility] 02/03/25 2:11 PM EST [facility] 02/03/25 2:11 PM EST [facility] Accessible 02/03/25 2:11 PM EST [facility] Accessible 02/03/25 2:12 PM EST [facility] 02/03/25 2:12 PM EST [facility] 02/03/25 2:12 PM EST [facility] Accessible 02/03/25 2:12 PM EST [facility] 02/03/25 2:12 PM EST [facility] 02/03/25 2:12 PM EST [facility] Accessible 02/03/25 2:12 PM EST [facility] Accessible 02/03/25 2:12 PM EST [facility] Accessible 02/03/25 2:12 PM EST documented in this encounter Procedure Notes * Linda Mendoza RN - 02/04/2025 2:46 AM EST Hemodialysis Nursing Procedure Note Patient: Sushant Christianson : 1960 CSN: [id number] Treatment Summary: Pt. tolerated HD treatment well with 2 liters fluid removed. R CVC dressing changed, access site CDI. Next HD treatment planned for Events or Complications during HD (if any): Net Ultrafiltration: 2.0 L Outpatient Estimated Dry Weight (EDW): kg Brief physical exam: Lungs: Clear Heart: RRR Peripheral edema: None Dialysis access type: Right neck tunneled catheter Dialysis Prescription: Bath Settings: Potassium: 3 mEq Calcium: 2.5 mg Sodium: 140mEq Bicarb: mEq32 Time on Dialysis: 3 hours Blood Flow Rate: 400 Dialysate Flow Rate: 800 mL/min Medications: Heparin Dose: Heparin-free IRAIS Dose: None Vitamin D Analogs: None Venofer Dose: None Antibiotics: None Catheter lumen dwell: Heparin, 5000 units/mL Schedule: Dialysis schedule: of next hemodialysis: Time of next hemodialysis: To be determined Linda Mendoza RN 02/04/2025 documented in this encounter Consult Notes * Sami Gamble MS - 02/03/2025 1:10 PM EST Behavioral Health Crisis Consult - Initial Assessment Patient: Sushant Christianson : 1960 Admit Date: 02/03/2025 Date of Consult: 02/03/2025 Time of Consult: 1:10 PM Consult Requested by: Suzanna Stevens MD Reason for Consult: Reason for Consult: SI, substance abuse History of Present Illness: Sushant Christianson is a 65 yo male currenlty at the [facility] Emergency Department. Patient left the ED AMA yesterday while awaiting a medical admission. Patient returns to the ED today reporting increased depression and SI. He reports alcohol and substance abuse (crac k/cocaine). He is currently on a section 12. Medical History: has a past medical history of Alcohol dependence ([facility]), Alcoholic fatty liver (11/22/2020), Anemia of chronic disease (02/22/2022), Anxiety and depression (11/22/2020), Bacteremia (10/17/2022), Kruse's esophagus without dysplasia (12/24/2019), BPH with urinary obstruction (), Chronic obstructive pulmonary disease, unspecified ([facility]) (11/22/2020), CKD (chronic kidney disease), ESRD (end stage renal disease) ([facility]) (11/02/2022), Gastro-esophageal reflux disease without esophagitis (11/22/2020), HCAP (healthcare-associated pneumonia) (06/18/2022), Hyperlipid emia, Hypertension, Perforated appendix (09/29/2021), Polysubstance abuse ([facility]) (01/28/2021), Suicidal ideation (02/08/2023), and Syncope (12/20/2022). has a past surgical history that includes arm surgery (Left) and Interventional radiology procedure (N/A, 08/06/2023). Psychiatric History: History of psychiatric illness?: Yes History of suicidal ideation?: Yes History of non-suicidal self injury?: No History of interpersonal aggression?: No History of past MARIA ESTHER?: Yes Treatment History?: Yes Inpatient Treatment:: Inpatient Psych Outpatient Treatment:: Outpatient Psychopharm Home Medications: Prescriptions Prior to Admission[1] Current Medications: Scheduled Medications[2] Current PRN: PRN Medications[3] Allergies: Patient has no known allergies. Substance Use History Alcohol: Substance and Sexual Activity Alcohol Use Yes Alcohol/week: 28.0 - 63.0 standard drinks of alcohol Types: 28 - 63 Standard drinks or equivalent per week Comment: 1 1/2 pints daily In the past 12 months,have you had 5 or more drinks(men)/4 or more drinks (women) containing alcohol in one day?: Yes Tobacco: reports that he has been smoking cigarettes. He does not have any smokeless tobacco history on file. Other: reports current drug use. Drugs: Cocaine and Crack cocaine. Prescription Medications: In the past 12 months,have you used any prescription medications just for the feeling, more than prescribed or that were no prescribed for you?: No Substances: In the past 12 months, have you used any drugs?: Yes Drugs used:: Cocaine or Crack Cocaine Details Questions Responses Cocaine frequency 3 or more times/week Cocaine length of use 1 and 1/2 years Cocaine longest time sober this past sat 06/17/2022 Medical and Psychiatric Consequences: Psychosocial Consequences: Social History: Socioeconomic History Marital status: Single Number of children: 0 Occupational History Occupation: Retired from [employer] Employment Status: Disabled Type of Residence: Private residence History: History status: No Personal History: has no history on file for sexual activity. Family History: Family History[4] Physical Exam: Patient Vitals for the past 24 hrs: BP Pulse Resp SpO2 02/03/25 1124 115/85 (!) 105 18 97 % Mental Status Exam: Mental Status Exam General Appearance: Appears older than stated age, overweight and disheveled. Level of Consciousness: Alert. Orientation: Oriented to person, place, time and situation. Attitude and Behavior: Interactive. Psychomotor Activity: Normal. Speech: Normal rate, volume, rhythm, coherence, articulation, prosody and pitch. Language: Normal. Affect: Flat. Thought Process and Associations: Logical. Thought Content: Positive for suicidal ideation. Attention Span: Appropriate. Memory: Grossly intact. Fund of Knowledge: Normal. Cognition: Normal. Insight: Poor. Judgment: Poor. Labs, Imaging & Other Studies: Laboratory: Recent lab results have been reviewed and are notable for Results for orders placed or performed during the hospital encounter of 02/03/25 (from the past 24 hours) CBC and Differential Result Value Ref Range WBC 10.57 4.00 - 11.00 K/uL RBC 3.05 (L) 4.10 - 5.60 M/uL Hemoglobin 9.0 (L) 12.7 - 16.7 g/dL Hematocrit 29.1 (L) 38.1 - 50.1 % MCH 29.5 23.0 - 37.0 pg MCHC 30.9 29.0 - 38.0 g/dL MCV 95 82 - 98 fL RDW 18.3 (H) 11.5 - 14.5 % Platelet Count 411 150 - 450 K/uL MPV 9.9 6.0 - 14.0 fL Neutrophil 68.4 % Lymphocyte 16.3 % Monocyte 12.2 % Eosinophil 0.4 % Basophil 0.7 % Immature Granulocyte ([place], Myelo, Promyelocyte) 2.0 % Absolute Neutrophil Count 7.24 1.50 - 7.70 K/uL Absolute Immature Granulocyte ([place], Myelo, Promyelocyte) 0.21 (H) 0.00 - 0.09 K/uL Absolute Lymphocyte Count 1.72 1.50 - 4.00 K/uL Absolute Monocyte Count 1.29 (H) 0.16 - 1.26 K/uL Absolute Eosinophil Count 0.04 (L) 0.15 - 0.30 K/uL Absolute Basophil Count 0.07 0.00 - 0.21 K/uL C-SSRS Screener and SAFE-T: [place] Suicide Severity Rating Scale (C-SSRS) Screener 1) In the past month, have you wished you were or wished you could go to sleep and not wake up?: Yes 2) In the past month, have you actually had any thoughts of killing yourself?: Yes 3) Have you been thinking about how you might do this? (Past 1 Month): No 4) Have you had these thoughts and had some intention of acting on them or do you have some intention of acting on them? (Past 1 Month): No 5) Have you started to work out or worked out the details of how to kill yourself? Did you intend to carry out this plan? (Past 1 Month): No 6a.) Have you ever done anything, started to do anything, or prepared to do anything to end your life?: No C-SSRS Screener Risk Level: Low History of Psychiatric Diagnosis:: Alcohol/Substance Use Disorder, Anxiety disorder/PTSD Presenting Symptoms: Anhedonia Family History: Unable to assess Precipitants/ Stressors/ Interpersonal: Inadequate social supports Change in Treatment: Not receiving treatment Step 2: Identify Protective Factors (Protective factors may not counteract significant acute suicide risk factors) Internal Protective Factors: Unable to assess External Protective Factors: Unable to assess Step 3: Specific questioning about Thoughts, Plans, and Suicidal Intent - (see Step 1 for Ideation Severity and Behavior) In the past 1 month, how many times have you had these thoughts?: 2-5 times in week In the past 1 month, when you have the thoughts, how long do they last?: Less than 1 hour/some of the time In the past 1 month, could/can you stop thinking about killing yourself or wanting to if you want to?: Can control thoughts with some difficulty In the past 1 month, are there things - anyone or anything (e.g., family, mandaen, pain of ) - that stopped you from wanting to or acting on thoughts of suicide?: Uncertain that deterrents stopped you In the past 1 month, what reasons did you have for thinking about wanting to or killing yourself? Was it to end the pain or stop the way you were feeling, or was it to get attention, revenge, or reaction from others? Or both?: Equally to get attention, revenge or reaction from others Suicidal Ideation Intensity Total Score: 14 Management of Suicide Risk: Because the patient is unwilling to maintain his/her safety in the community, the patient will be further assessed for psychiatric inpatient level of care Assessment: Sushant Christianson is a 65 yo male currenlty at the [facility] Emergency Department. Patient leftthe ED AMA yesterday while awaiting a medical admission. Patient returns to the ED today reporting increased depression and SI. He reports alcohol and substance abuse (crack/cocaine). He is currentlyon a section 12. Patient is noted to have a history of depression and substance abuse. He is currently on dialysis. He receives dialysis on Sunday, and Sunday. Upon meeting with patient he is in behavioral control. He acknowledged leaving the hospital yesterday. He stated that his girlfriend and [facility] felt like he should return to the hospital. He acknowledges feeling increasingly depressed. He states he is having thoughts of suicide and thoughts of wantingto . Patient???s father in April. Sushant states he was close to his father and he is stillhaving a difficult time processing his . Patient acknowledges daily alcohol use when he was in the community. He stated he used crack/cocaine once or twice a week. Patient does not have any behavioral health providers. His last known psychiatric admission is at [facility] +SI, denies HI, AVH and is oriented X4 IPLOC recommended at this time. Disposition Recommendation: Inpatient Level of Care Behavioral Health Diagnosis: F32.9 - Unspecified Depressive Disorder; F10.20 - Alcohol Use Disorder Duration: Time Spent (min): 100 Discussed with Retail Shift Leader: Yes, Retail Shift Leader Name: Senior Formulation Scientist GABRIELE Director Vincent Johnson Discussed with Medical Team: Yes . Dr. Stevens Signed by: Sami Gamble MS [1] (Not in a hospital admission) [2] [3] [4] Family History Problem Relation Name Age of Onset Diabetes Mother d. 88 Thyroid disease Mother Depression Father documented in this encounter ED Notes * Claudy Morales RN - 02/03/2025 5:31 PM EST Sleeping but wakes to verbal stimuli * Claudy Morales RN - 02/03/2025 5:05 PM EST Dialysis due later tonight * Claudy Morales RN - 02/03/2025 4:40 PM EST Called dialysis, may not be able to show up today for dialysis * Claudy Morales RN - 02/03/2025 3:00 PM EST Pt given sandwich and drink * Claudy Morales RN - 02/03/2025 1:21 PM EST No distress noted * Claudy Morales RN - 02/03/2025 1:21 PM EST Pt changed to scrubs, calm and cooperative. Belongings in locker * Claudy Morales RN - 02/03/2025 11:35 AM EST Sat on RA at ER are mid 90s * Claudy Morales RN - 02/03/2025 11:24 AM EST Pt brought in for SOB, [facility] called EMS, pt was here yesterday for same and was diagnosed with pneumonia but signed out AMA, pt was found by EMS to have Sats in 80s, arrived to ER on 2 liters with improved sats. Denies chest pain, pt is a smoker. * Suzanna Stevens MD - 02/03/2025 11:19 AM EST EMERGENCY DEPARTMENT ENCOUNTER CHIEFCOMPLAINT Chief Complaint Patient presents with Shortness of Breath HPI Sushant Christianson is a 65 y.o. male who presents with depression and suicidal ideation. He does not have a plan as to how he will kill himself and he denies any history of attempt in the past. He denies any homicidal ideation. He says also that he has been abusing alcohol and drinking about 1 pint of vodka per day. He already had some alcohol to drink the day of presentation but also feels that he is withdrawing because heis shaky. He is not having any hallucinations or seizures today. He denies any new difficulty breathing or chest pain or any new different coughing or any fevers orgeneral malaise over the last few days. He admits to a history of COPD and ongoing smoking of 20 cigarettes/day. The patient is also on dialysis as of the last 3 years. He goes to dialysis center in [place]. His last dialysis was Sunday which was 4 days ago and he is supposed to have dialysis today. PAST MEDICAL HISTORY nursing notes reviewed Past Medical History[1] SURGICAL HISTORY Past Surgical History[2] CURRENT MEDICATIONS Patient Medication List Previous Medications ACETAMINOPHEN (TYLENOL) 500 MG TABLET ASPIRIN 81 MG EC TABLET ATORVASTATIN (LIPITOR) 80 MG TABLET CLOPIDOGREL (PLAVIX) 75 MG TABLET FERROUS SULFATE 324 MG (65 MG IRON) TBEC FOLIC ACID (FOLVITE) 1 MG TABLET GABAPENTIN (NEURONTIN) 100 MG CAPSULE HYDROXYZINE HCL (ATARAX) 10 MG TABLET LAMOTRIGINE (LAMICTAL) 25 MG TABLET LOKELMA 5 GRAM PWPK POWDER PACKET MELATONIN 3 MG TAB TABLET METOPROLOL TARTRATE (LOPRESSOR) 25 MG TABLET MIDODRINE (PROAMATINE) 2.5 MG TABLET OLANZAPINE (ZYPREXA) 10 MG TABLET PANTOPRAZOLE (PROTONIX) [address] TABLET REXULTI 3 MG TAB SERTRALINE (ZOLOFT) 100 MG TABLET SEVELAMER CARBONATE (RENVELA) 800 MG TABLET THIAMINE (VITAMIN B1) 100 MG TABLET ALLERGIES no known drug allergies Allergies[3] FAMILY HISTORY Family History[4] SOCIAL HISTORY the patient smokes 20 cigarettes/day. He drinks 1 bottle of vodka per day. He uses crack cocaine every day. He lives at home alone but his girlfriend is always around. Social History[5] PHYSICAL EXAM VITAL SIGNS: BP 115/85 Pulse (!) 105 SpO2 97% Constitutional: Slightly ornery but calm and cooperative 65-year-old alert and oriented by 3 in no acute respiratory distress GCS 15. HENT: Normocephalic, atraumatic, bilateral external ears normal, oropharynx moist, no oral exudates, Nose normal. Neck- normal range of motion, no tenderness,supple, no stridor. Eyes: PERRL, EOMI, conjunctiva normal, no discharge. Lymphatic: No lymphadenopathy noted. Cardiovascular: Normal heart rate, normal rhythm,no murmurs, no rubs, no gallops. Respiratory: Coarse crepitations throughout both lung tian but with good air entry which is equalbilaterally and no wheezing. , no respiratory distress, no wheezing, no chest tenderness. GI: Bowel sounds normal, Soft, no tenderness, no masses,no pulsatile masses. No CVA tenderness. Integument: Scattered ecchymosis about the volar aspect of the left arm and on the anterior aspect of the left lower extremity without associated bony tenderness or deformity. Back: No tenderness, no CVA tenderness. Musculoskeletal: Intact distalpulses, no edema, no tenderness, no cyanosis, no clubbing. Good rangeof motion in all major joints. No tenderness to palpation or major deformities noted. Back- No tenderness. Neurologic: Alert &oriented x 3, normal motor function, normal sensory function, no focal deficits noted. EKG To my real-time reading: RADIOLOGY ECG 12 lead Result Date: 02/03/2025 Normal sinus rhythm Right bundle branch block Left anterior fascicular block --- Bifascicular block--- Abnormal ECG ECG 12 lead Result Date: 02/01/2025 Normal sinus rhythm Left axis deviation Right bundle branch block Left anterior fascicular block --- Bifascicular block --- Abnormal ECG No significant change was found Confirmed by Dianelys Milner (Jeffry)([id number]) on 02/01/2025 11:54:09 AM XR Chest 1 Vw Portable Result Date: [...] territorial infarct. ECG 12 lead Result Date: 01/28/2025 Sinus tachycardia Right bundle branch block Left anterior fascicular block --- Bifascicular block --- Abnormal ECG Confirmed by Iam Underwood ([id number]) on 01/28/2025 12:51:04 PM ECG 12 lead Result Date: 01/28/2025 Baseline artifact Undetermined rhythm Low voltage QRS Nonspecific intraventricular block Abnormal ECG Confirmed by Iam Underwood ([id number]) on 01/28/2025 12:50:13 PM ECG 12 lead Result Date: 01/27/2025 Normal sinus rhythm Left axis deviation Right bundle branch block Abnormal ECG Confirmed by Iam Underwood ([id number]) on 01/27/2025 4:06:57 PM XR Knee 4+ Vw Left (Trauma) Result Date: 01/27/2025 EXAM DESCRIPTION: XR KNEE 4+ VW LEFT CLINICAL HISTORY: Left knee pain. Trauma. COMPARISON: No priorstudies available for comparison. TECHNIQUE: 4 views submitted FINDINGS: The bones are intact and normally aligned. There is soft tissue swelling. There is no significant joint effusion. Bones are dem ineralized. The joint spaces appear normal. Soft tissue swelling. No acute fracture identified. [...] Neck structures: There is a thyroid goiter. Hepatob iliary: The liver is normal. There is cholelithiasis. [...] not well visualized. The lung apices are well- aerated. There are multiple small cervical lymph nodes [...] not well visualized. The lung apices are well- aerated. There are multiple small cervical lymph nodes [...] levels. Partially visualized right-sided central venous catheter. No results found for this or any previous visit (from the past 24 hours). ED COURSE & MEDICAL DECISION MAKING Pertinent Labs & Imaging studies reviewed. (Seechart for details) The patient presents with depression and suicidal ideation and ongoing alcohol abuse. He is also abusing crack every day he says. He is a dialysis patient with multiple other comorbidities also. On review of the medical records the patient was admitted on the eighth of this month which was 3 days ago for a presentation of altered mental status and missing dialysis. He underwent a comprehensive evaluation during his stay and was diagnosed with healthcare associated pneumonia. He was dialyzed during that admission. He was discharged yesterday from that admission but did not fill his prescription for antibiotics. He just started drinking again. I discussed the patient's case with the station examiner on-call who will attempt to arrange dialysis for the patient here today. The patient is medically cleared at this time and is held on a section 12 with a view to inpatient dual diagnosis care. I gave the patient doxycycline for his pneumonia. There was no prescription for antibiotics sent tohis pharmacy upon discharge. Clinical Impression 1. Suicidal ideation 2. Depression, unspecified depression type 3. Alcoholic intoxication with complication 4. End stage renal disease ([facility]) 5. Healthcare-associated pneumonia Suzanna Stevens MD 02/03/25 1152 [1] Past Medical History: Diagnosis Date Alcohol dependence ([facility]) Alcoholic fatty liver 11/22/2020 Anemia of chronic disease 02/22/2022 Anxiety and depression 11/22/2020 Bacteremia 10/17/2022 Kruse's esophagus without dysplasia 12/24/2019 BPH with urinary obstruction 10/10/2018 Chronic obstructive pulmonary disease, unspecified ([facility]) 11/22/2020 CKD (chronic kidney disease) ESRD (end stage renal disease) ([facility]) 11/02/2022 Gastro-esophageal reflux disease without esophagitis 11/22/2020 HCAP (healthcare-associated pneumonia) 06/18/2022 Hyperlipidemia Hypertension 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 Polysubstance abuse ([facility]) 01/28/2021 Suicidal ideation 02/08/2023 Syncope 12/20/2022 [2] Past Surgical History: Procedure Laterality Date INTERVENTIONAL RADIOLOGY PROCEDURE N/A 08/06/2023 Surgeon: PRESTON Boateng; Location: [facility]; Service: Vascular and Interventional Radiology; Laterality: N/A; arm surgery Left [3] No Known Allergies [4] Family History Problem Relation Name Age of Onset Diabetes Mother d. 88 Thyroid disease Mother Depression Father [5] Social History Socioeconomic History Marital status: Single Number of children: 0 Occupational History Occupation: Retired from [employer] industry Tobacco Use Smoking status: Every Day Current packs/day: 1.00 Types: Cigarettes Substance and Sexual Activity Alcohol use: Yes Alcohol/week: 28.0 - 63.0 standard drinks of alcohol Types: 28 - 63 Standard drinks or equivalent per week Comment: 1 1/2 pints daily Drug use: Yes Types: Cocaine, Crack cocaine Comment: occasional Suzanna Stevens MD 02/03/25 1155 documented in this encounter Miscellaneous Notes * ED Obs Note - Claudy Morales RN - 02/03/2025 11:40 AM EST Dialysis pt, due today documented in this encounter Plan of Treatment Not on file documented as of this encounter Procedures Procedure Name Priority Date/Time Associated Diagnosis Comments DRUG SCREEN, URINE STAT 02/04/2025 3: 54 AM EST TROPONIN (ALL) STAT 02/03/2025 12:30 PM EST CBC AND DIFFERENTIAL STAT 02/03/2025 12:30 PM EST CBC AND DIFFERENTIAL STAT 02/03/2025 12:30 PM EST MAGNESIUM STAT 02/03/2025 12:30 PM EST ETHANOL, BLOOD STAT 02/03/2025 12:30 PM EST BASIC METABOLIC PANEL STAT 02/03/2025 12:30 PM EST XR CHEST 2 VW STAT 02/03/2025 12:13 PM EST ECG 12-LEAD STAT 02/03/2025 11:42 AM EST documented in this encounter Results * (ABNORMAL) Drug Screen, Urine (02/04/2025 3:54 AM EST) 6-Aceytlmorphine Screen, Urine Negative Negative 02/04/2025 4:20 AM EST [facility] Comment:Add on order [id number] Opiates and Oxycodone, Urine, Confirmation, if confirmation desired. Amphetamines Screen, Urine Negative Negative 02/04/2025 4:20 AM [facility] Comment: Screen for Amphetamine, Metamphetamine or other Amphetamine-like compounds. Add-on order [id number] Amphetamine, Urine, Confirmation if confirmation desired. Barbiturates Screen, Urine Negative Negative 02/04/2025 4:20 AM EST [facility] Comment:Add-on order [id number] Barbiturate, Urine, Confirmation if confirmation desired. Benzodiazepine Screen, Urine Negative Negative 02/04/2025 4:20 AM EST [facility] Comment: Add-on order [id number] Benzodiazepine, Urine, Confirmation if confirmation desired. Buprenorphine Screen, Urine Negative Negative 02/04/2025 4:20 AM EST [facility] Comment:Add-on order [id number] Buprenorphine, Urine, Confirmation if confirmation desired. Cannabinoids Screen, Urine Negative Negative 02/04/2025 4:20 AM EST [facility] Comment:Add-on order [id number] Cannabinoids, Urine, if confirmation desired. Cocaine Metabolite Screen, Urine Positive(A) Negative 02/04/2025 4:20 AM EST [facility] Comment:Add-on order [id number] Cocaine, Urine, Confirmation if confirmation desired. Ethanol Screen, Urine Negative Negative 02/04/2025 4:20 AM EST [facility] Fentanyl Screen, Urine Negative Negative 02/04/2025 4:20 AM [facility] Comment:Add-on order [id number] Fentanyl Confirmation, Urine, if confirmation desired. Methadone Screen, Urine Negative Negative 02/04/2025 4:20 AM EST [facility] Comment:Add order [id number] Me thadone, Urine, Confirmation if confirmation desired. Opiates Screen, Urine Negative Negative 02/04/2025 4:20 AM EST [facility] Comment: Screen for Morphine, Codeine, Hyrdocodone, Hydromorphone, or other Morphine- related opiates. Add on order [id number] Opiates and Oxycodone, Urine, Confirmation if confirmation desired. Oxycodone Screen, Urine Negative Negative 02/04/2025 4:20 AM EST [facility] Comment:Add-on order [id number] Opiates and Oxycodone, Urine, Confirmation if confirmation desired. Tramadol Screen, Urine Negative Negative 02/04/2025 4:20 AM EST [facility] Comment:Add-on order [id number] Tramadol Confirmation, Urine, if confirmation desired. Creatinine, Yang Urine 60.0 >=15.0 mg/dL 02/04/2025 4:20 AM [facility] Urine URINE SPECIMEN / Unknown Collection / Unknown 02/04/2025 3:54 AM EST 02/04/2025 3:57 AM EST [facility] - 02/04/2025 4:20 AM EST These tests are for screening [...] testing can be done upon specific request. Suzanna Stevens MD URINE ORDERABLES Final Result [facility] [address] [place] [address] * Ethanol (02/03/2025 12:30 PM EST) [facility] Alcohol <10 <10 mg/dL 02/03/2025 1:39 PM EST [facility] Blood PERIPHERAL BLOOD SPECIMEN / Unknown Venipuncture / Unknown 02/03/2025 12:30 PM EST 02/03/2025 12:36 PM EST Suzanna Stevens MD LAB BLOOD ORDERABLES Final Re sult Performing Organization Address [facility] Co de Phone Number [facility] [address] [place] [address] * Magnesium (02/03/2025 12:30 PM EST) [facility] Magnesium, Blood 2.0 1.6 - 2.6 mg/dL 02/03/2025 1:30 PM EST [facility] Blood PERIPHERAL BLOOD SPECIMEN / Unknown Venipuncture / Unknown 02/03/2025 12:30 PM EST 02/03/2025 12:36 PM EST Suzanna Stevens MD LAB BLOOD ORDERABLES Final Re sult Performing Organization Address [facility] de Phone Number [facility] [address] [place] [address] * (ABNORMAL) CBC and Differential (02/03/2025 12:30 PM EST) [facility] WBC 10.57 4.00 - 11.00 K/uL 02/03/2025 12:46 PM EST [facility] RBC 3.05(L) 4.10 - 5.60 M/uL 02/03/2025 12:46 PM EST [facility] Hemoglobin 9.0(L) 12.7 - 16.7 g/dL 02/03/2025 12:46 PM EST [facility] Hematocrit 29.1(L) 38.1 - 50.1 % 02/03/2025 12:46 PM EST [facility] MCH 29.5 23.0 - 37.0 pg 02/03/2025 12:46 PM [facility] MCHC 30.9 29.0 - 38.0 g/dL 02/03/2025 12:46 PM [facility] MCV 95 82 - 98 fL 02/03/2025 12:46 PM [facility] RDW 18.3(H) 11.5 - 14.5 % 02/03/2025 12:46 PM [facility] Platelet Count 411 150 - 450 K/uL 02/03/2025 12:46 PM [facility] MPV 9.9 6.0 - 14.0 fL 02/03/2025 12:46 PM [facility] Neutrophil 68.4 % 02/03/2025 12:46 PM [facility] Lymphocyte 16.3 % 02/03/2025 12:46 PM [facility] Monocyte 12.2 % 02/03/2025 12:46 PM [facility] Eosinophil 0.4 % 02/03/2025 12:46 PM [facility] Basophil 0.7 % 02/03/2025 12:46 PM [facility] Immature Granulocyte ([place], Myelo, Promyelocyte) 2.0 % 02/03/2025 12:46 PM [facility] Absolute Neutrophil Count 7.24 1.50 - 7.70 K/uL 02/03/2025 12:46 PM [facility] Absolute Immature Granulocyte ([place], Myelo, Promyelocyte) 0.21(H) 0.00 - 0.09 K/uL 02/03/2025 12:46 PM [facility] Absolute Lymphocyte Count 1.72 1.50 - 4.00 K/uL 02/03/2025 12:46 PM [facility] Absolute Monocyte Count 1.29(H) 0.16 - 1.26 K/uL 02/03/2025 12:46 PM [facility] Absolute Eosinophil Count 0.04(L) 0.15 - 0.30 K/uL 02/03/2025 12:46 PM [facility] Absolute Basophil Count 0.07 0.00 - 0.21 K/uL 02/03/2025 12:46 PM [facility] Blood PERIPHERAL BLOOD SPECIMEN / Unknown Venipuncture / Unknown 02/03/2025 12:30 PM EST 02/03/2025 12:36 PM EST Suzanna Stevens MD LAB BLOOD ORDERABLES Final Re sult Performing Organization Address [facility]/ZIP Co de Phone Number [facility] [address] [place] [address] * (ABNORMAL) Troponin (02/03/2025 12:30 PM EST) Troponin T HS 80(H) <52 ng/L 02/03/2025 1:30 PM EST [facility] Blood PERIPHERAL BLOOD SPECIMEN / Unknown Venipuncture / Unknown 02/03/2025 12:30 PM EST 02/03/2025 12:36 PM EST Suzanna Stevens MD LAB BLOOD ORDERABLES Final Re sult Performing Organization Address [facility] de Phone Number [facility] [address] [place] [address] * (ABNORMAL) Basic Metabolic Panel (02/03/2025 12:30 PM EST) Sodium 140 135 - 146 mmol/L 02/03/2025 1:30 PM EST [facility] Potassium 4.2 3.4 - 5.2 mmol/L 02/03/2025 1:30 PM EST [facility] Chloride 97(L) 98 - 110 mmol/L 02/03/2025 1:30 PM EST [facility] Total CO2/Bicarbonat e 25 24 - 32 mmol/L 02/03/2025 1:30 PM EST [facility] Anion Gap 18(H) 2 - 15 mmol/L 02/03/2025 1:30 PM EST [facility] BUN 50(H) 7 - 24 mg/dL 02/03/2025 1:30 PM EST [facility] Creatinine, Blood 9.30(H) 0.60 - 1.30 mg/dL 02/03/2025 1:30 PM EST [facility] Glucose, Blood 93 50 - 100 mg/dL 02/03/2025 1:30 PM EST [facility] Calcium 9.4 8.5 - 10.5 mg/dL 02/03/2025 1:30 PM EST [facility] Estimated GFR (MDRD) 6(L) >=60 mL/min/BSA 02/03/2025 1:30 PM EST [facility] Blood PERIPHERAL BLOOD SPECIMEN / Unknown Venipuncture / Unknown 02/03/2025 12:30 PM EST 02/03/2025 12:36 PM EST us Suzanna Stevens MD LAB BLOOD ORDERABLES Final Re sult [facility] [address] [place] [address] * XR Chest 2 Vw (if able to travel) (02/03/2025 12:13 PM EST) Anatomical Region Laterality Modality Chest Digital Radiogra phy Impressions 02/03/2025 1:07 PM EST No acute pulmonary process. Right-sided central line in good position, as before. Narrative 02/03/2025 1:07 PM EST EXAM DESCRIPTION: XR CHEST 2 VW CLINICAL HISTORY: Shortness of breath and cough. 65-year-old male. COMPARISON: Portable chest x-ray from 01/31/2025. TECHNIQUE: AP upright and lateral views of the chest were obtained. 2 images total. FINDINGS: The cardiac silhouette is within normal limits for size. The mediastinal contours are normal. There is a right-sided double-lumen central venous catheter with the distal tip overlying the superior vena cava. The lung volumes remain slightly low. No focal airspace consolidation to suggest pneumonia. The pulmonary vasculature is within normal limits. No large pneumothorax or pleural effusion. The visualized bony thorax is age-appropriate. This patient has undergone prior ORIF of the left proximal humerus. Resulting Agency Comment [id number] Procedure Note Samanta Toscano MD - 02/03/2025 EXAM DESCRIPTION: XR CHEST 2 VW CLINICAL HISTORY: Shortness of breath and cough. 65-year-old male. COMPARISON: Portable chest x-ray from 01/31/2025. TECHNIQUE: AP upright and lateral views of the chest were obtained. 2 images total. FINDINGS: The cardiac silhouette is within normal limits for size. The mediastinal contours are normal. There is a right-sided double-lumen central venous catheter with the distal tip overlying the superior vena cava. The lung volumes remain slightly low. No focal airspace consolidation to suggest pneumonia. The pulmonary vasculature is within normal limits. No large pneumothorax or pleural effusion. The visualized bony thorax is age-appropriate. This patient has undergone prior ORIF of the left proximal humerus. IMPRESSION: No acute pulmonary process. Right-sided central line in good position, as before. Suzanna Stevens MD IMG DIAGNOSTIC IMAGING ORDERA BLES Final Result * ECG 12 lead (02/03/2025 11:42 AM EST) Ventricular Heart Rate 84 BPM EKG B[facility] MUSE Atrial Heart Rate 84 BPM EKG [facility] M[facility] IA Interval 204 ms EKG [facility] MUSE QRSD Interval 152 ms EKG B[facility] MUSE QT Interval 404 ms EKG [facility] MUSE QTC Interval 477 ms EKG BUR MUSE P [place] 56 degrees EKG BUR MUSE R [place] -52 degrees EKG BUR MUSE T Wave [place] 22 degrees EKG BUR MUSE 02/03/2025 11:4 0 AM EST 02/03/2025 2:28 PM EST Narrative EKG BUR MUSE - 02/03/2025 2:28 PM EST Normal sinus rhythm Right bundle branch block Left anterior fascicular block --- Bifascicular block --- Abnormal ECG When compared with ECG of 31-JAN-2025, No significant interval change Confirmed by Vincent Wilson ([id number]) on 02/03/2025 2:28:53 PM Procedure Note Vincent Wilson MD - 02/03/2025 Normal sinus rhythm Right bundle branch block Left anterior fascicular block --- Bifascicular block --- Abnormal ECG When compared with ECG of 31-JAN-2025, No significant interval change Confirmed by Vincent Wilson ([id number]) on 02/03/2025 2:28:53 PM Suzanna Stevens MD ECG ORDERABLES Final Result EKG BUR MUSE [address] [place] [id number] documented in this encounter Visit Diagnoses Diagnosis Suicidal ideation- Primary Depression, unspecified depression type Alcoholic intoxication with complication End stage renal disease ([facility]) End stage renal disease Healthcare-associated pneumonia Pneumonia, organism unspecified documented in this encounter Administered Medications Inactive Administered Medications - up to 3 most recent administrations Medication Order MAR Action Action Date Dose Rate Site doxycycline hyclate (VIBRA-TABS) tablet 100 mg 100 mg Once, Oral, On Sun02/03/25 at 1156, For 1 dose Given 02/03/2025 12:33 PM EST 100 mg heparin (porcine) injection 20,000 Units 20,000 Units, Intracatheter, Once in dialysis, 1 dose, On Sun02/03/25 at 1406 Given 02/04/2025 1:07 AM EST 20,000 Units documented in this encounter Active and Recently Administered Medications Times are shown in EST. Scheduled Medication Order 02/02/2025 02/03/2025 02/04/2025 doxycycline hyclate (VIBRA-TABS) tablet 100 mg (COMPLETED) 100 mg Once, Oral, On Sun02/03/25 at 1156, For 1 dose 1233 (Given - Provider: Idania Tellez RN) heparin (porcine) injection 20,000 Units (COMPLETED) 20,000 Units, Intracatheter, Once in dialysis, 1 dose, On Sun02/03/25 at 1406 0107 (Given - Provid er: Linda Mendoza RN) documented in this encounter Care Teams [employer] Cutting Machine Operator Relationship Specialty Start Date End Date Akin Christianson NP [address] [place] [address] JOSE FRANCISCO DENSON [address] PCP - General Nurse Practitioner 02/03/25 documented as of this encounter
--- NOTE | 2025-02-04 | ECG_ITS ---
Test Reason : r/o qtc prolongation Blood Pressure : */* mmHG Vent. Rate : 87 BPM Atrial Rate : 87 BPM P-R Int : 200 ms QRS Dur : 152 ms QT Int : 396 ms P-R-T Axes : 59 -58 27 degrees QTcB Int : 476 ms Normal sinus rhythm Left axis deviation Right bundle branch block Abnormal ECG No previous ECGs available Referred By: Azalia Nolasco Electronically Signed By: CYRIL DEGROOT MD
[2025-02-04 14:00] VITALS: BP 120/74; PULSE 108; RESP 18; TEMP 37.5; O2SAT 96
[2025-02-04 14:03] VITALS: BMI 25.3
--- NOTE | 2025-02-04 16:05 | PC.ADMIT ---
Sushant Christianson is a 65 year old Male admitted to [facility] S1 from [facility] ED on 02/04/25 at 1350 on a CV for tx of SI/MDD and substance use disorder. Pt Utox was not completed at prior hospital. Per crisis assessment pt presented to [facility] ED for depression and SI with no plan. Pt reports drinking one pint of alcohol a day for the last two weeks and that he was just celebrating eight months of sobriety. reports last use was yesterday morning. Pt reports recent use of crack cocaine twice a week for the last two weeks. Reports last use was 3 days ago. Pt reports losing his father in March and that I just can't get over it. I miss him so much. Pt has End stage renal disease, COPD, HTN, Hyperlipidemia and GERD. Pt reports receiving dialysis tx on tuesdays, , and saturdays. Upon arrival to S1 pt displayed a anxious affect and a pleasant mood. Pt denies racing thoughts and stated My zyprexa helps with that. Pt reports feeling anxious and shaky and states I'm just really anxious about being so far from home. I wanted treatment but now I just want to go home to my girlfriend. Pt reports sleeping well with medications such as Melatonin and Trazadone. Pt denies SI/HI/AH/VH at this time and reports feeling safe on the unit. VS 99.5, 108, 18, 120/74 L arm sitting, 96% RA. Pt has yellow tinted sclera, and yellow tinted finger nails. Pt has bruising to the L lower leg and to the L arm. Pt has a port in the R chest and a fistula in the R arm. Pt reports no recent weight loss. Pt reports a fall outside his home three months ago. Pt reports occasionally using a cane at home but declines to use a walker at [facility] and ambulates with a steady gait. Pt is on 5 minute checks for safety per protocol.
--- OUTSIDE RECORDS SUMMARY | 2025-02-04 16:34 | XMS_ITS | Encounter Summary ---
Author Organization [facility] Address [address] [place] [address] Care Team Providers Care Resolution Agent Name Role Phone Mal Mcclelland MD Primary Care Provider + Vannessa Jimenez MD Unavailable [phone] None, Pcp Primary Care Provider Unavailabl e Unknown, Provider Primary Care Provider [facility] Ketan Verde NP Primary Care Provider [phone] System, Provider Not In Primary Care Provider Un available Unknown, Provider Primary Care Provider [facility] Akin Christianson NP Primary Care Provider [phone] Encounter Details Date Type Department Care Team (Late st Contact Info) Description 02/23/2023 Orders Only [facility] [address] [id number] Dee Azevedo RN Social History Tobacco Use Types Packs/Day Years Used Date Smoking Tobacco: Every Day Cigarettes Alcohol Use Standard Drinks/Week Comments Yes 0 (1 standard drink = 0.6 oz pur e alcohol) 1 1/2 pints daily Humiliation, Afraid, Rape, and Kick questionnair e Answer Date Recorded Within the last year, have y ou been afraid of your partner or ex-partner? No 02/10/2023 Emotionally Abused Not on file 02/10/2023 Physically Abused Not on file 02/10/2023 Sexually Abused Not on file 02/10/2023 AUDIT-C Answer Date Recorded Q1: How often do you have a drink containing alcohol? 4 or more times a week 02/10/2023 Average Number of Drinks Not on file 023 Frequency of Binge Drinking Not on file 01/24 Exercise Vital Sign Answer Date Recorde d On average, how many days pe r week do you engage in moderate to strenuous exercise (like a brisk walk)? 0 days Minutes of Exercise per Session Not on file 02/10/2023 PRAPARE - Transportation Answer Date Re corded In the past 12 months, has l ack of transportation kept you from medical appointments or from getting medications? Yes 02/10/2023 Lack of Transportation (Non-Medical) Not on file 02/10/2023 Food Insecurity Answer Date Recorded Within the past 12 months, y ou worried that your food would run out before you got the money to buy more. 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 on file Not on fi le Not on file documented as of this encounter Plan of Treatment Not on file documented as of this encounter Visit Diagnoses Not on filedocumented in this encounter Additional Health Concerns Infection Onset Date Last Indicated Resolved Time COVID Suspect 04/24/2023 04/24/2023 04/25/2023 12: 01 PM EST COVID Suspect 08/03/2023 08/03/2023 08/04/2023 11: 31 AM EDT Rule-Out Respiratory Virus 12/08/2023 12/08/2023 0 12/08/2023 3:08 PM EDT Rule-Out Respiratory Virus 02/20/2024 02/20/2024 1 04/21/2023 4:41 PM EST Rule-Out Respiratory Virus 02/29/2024 02/29/2024 1 05/01/2023 10:18 AM EST COVID Positive 02/29/2024 02/29/2024 03/10/2024 10 :41 AM EST Rule-Out Respiratory Virus 03/09/2024 03/09/2024 1 05/10/2023 12:49 PM EST Rule-Out Respiratory Virus 12/23/2024 12/23/2024 0 12/23/2024 4:33 PM EDT Rule-Out Respiratory Virus 01/27/2025 01/27/2025 1 03/29/2024 2:59 PM EST Rule-Out Respiratory Virus 02/01/2025 02/01/2025 1 04/03/2024 3:27 AM EST documented as of this encounter Care Teams Resolution Agent Relationship Specialty Start Date End Date Mal Mcclelland MD [address] [place] [address] PCP - General Internal Medicine 01/02/23 04/23/23 Vannessa Jimenez MD [address] [place] [address] PCP - Resident Internal Medicine 01/02/23 04/23/23 None, Pcp, [address] [place] [address] PCP - General 04/24/23 10/19/23 Unknown, Provider, [address] [place] [address] PCP - General 10/20/23 02/19/[address], [address] PCP - General 02/20/24 03/04/24 Ketan Verde, ENVIRONMENTAL FIELD OFFICE MANAGER [address] [place] [address] PCP - General Psychiatry 03/05/24 07/29/24 System, Provider Not In PCP - General 07/30/24 01/30/25 Unknown, Provider, [address] [place] [address] PCP - General 01/31/25 02/02/25 Akin Christianson ENVIRONMENTAL FIELD OFFICE MANAGER [address] [place] [address] PCP - General Nurse Practitioner 02/03/25 documented as of this encounter
--- OUTSIDE RECORDS SUMMARY | 2025-02-04 16:34 | XMS_ITS | Encounter Summary ---
Author Organization [facility] Address [address] [place] [address] Care Team Providers Care Design Verification Engineer Name Role Phone Ochin, Provider Primary Care Provider Unavailabl e Encounter Details Date Type Department Care Team (Late st Contact Info) Description 07/12/2023 Case Management Visit [facility] [address] [facility] SECOND FLOOR [place] [phone] Marquis Lex [address] [facility] [address] Social History Tobacco Use Types Packs/Day Years Used Date Smoking Tobacco: Every Day Cigarettes 1 20 Smokeless Tobacco: Never Comments:1 PPD x 16 = 16 PYH , cut back to 0.5 ppd with [facility] stay Alcohol Use Standard Drinks/Week Comments Not Currently 0 (1 standard drink = 0.6 oz pur e alcohol) 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 07/11/2021 Social Connections Answer Date Recorded Social Connections and Isolation 0 11/12/2018 Financial Resource Strain Answer Date R ecorded Financial Resource Strain 0 2018 Stress Answer Date Recorded Stress 0 11/12/2018 Physical Activity Answer Date Recorded Physical Activity 0 11/12/2018 Food Insecurity Answer Date Recorded Food 2 07/04/2023 Transportation Needs Answer Date Record ed Transportation 2 07/04/2023 Housing Stability Answer Date Recorded Housing 2 07/04/2023 Safety and Environment Answer Date Nitin rded Safety 0 11/12/2018 Utilities Answer Date Recorded Utilities 2 07/04/2023 Employment Answer Date Recorded Stress 2 07/04/2023 Sex and Gender Information Value Date Recorded Sex Assigned at Not on file Legal Sex Male 5:37 PM PDT Gender Identity Not on file Sexual Orientation Not on file documented as of this encounter Progress Notes * Marquis Burnett - 07/12/2023 10:39 AM EDT Client met with CM to discuss housing search progress. Client reports that as his fathers mental yaidel has been declining, he has put focus more focus towards aiding father than searching for housing. Client states that he is now very motivated to find housing within the near future, as his father has stabilized. Client and CM narrowed down apartments in the [place], as he is adamant on staying either staying nearby or living with father ultimately. Most market rate 2 bedroom apartments would be financially feasible for Sushant's Income, and would definitely benefit client by being with father. 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 CM reminded client to contact [employer]'s customer service line for those receiving pension. Client must request benefit letter to present to Social Security. Client had received a time sensitive re-verification notice in mail. CM urges client to follow up in timely manner to preventa stoppage in benefits. documented in this encounter Plan of Treatment Not on file documented as of this encounter Goals Goal Patient Goal Type Associated Problems Recent Progress Patient-Stated? Author Help patient manage hypertension Care Plan Patient has a diagnosis of hypertension Zara Ward NP documented as of this encounter Visit Diagnoses Not on filedocumented in this encounter Additional Health Concerns Active Problems Noted Date Diagnosed Date Patient has a diagnosis of hypertension 02/12/20 21 Assessment Noted Time PHQ-9 Depression Total Score: 9 01/04/20 18 10:00 AM PDT PHQ-2 Depression Total Score: 0 04/02/19 24 1:00 PM PST documented as of this encounter Care Teams Design Verification Engineer Relationship Specialty [place] [address] PCP - General 12/22/24 [facility] Design Verification Engineer 02/25/18 [facility] 03/01/22 documented as of this encounter
--- OUTSIDE RECORDS SUMMARY | 2025-02-04 16:34 | XMS_ITS | Encounter Summary ---
Author Organization [facility] Address [address] [place] [address] Care Team Providers Care Chainstitch Binder Name Role Phone Ochin, Provider Primary Care Provider Unavailabl e Encounter Details Date Type Department Care Team (Late st Contact Info) Description 11/28/2023 Case Management Visit [facility] [address] [facility] SEC[facility]LOOR [place] [phone] Marquis Lex [address] [facility] [place] [address] Social History Tobacco Use Types Packs/Day Years Used Date Smoking Tobacco: Every Day Cigarettes 1 20 Smokeless Tobacco: Never Comments:1 PPD x 16 = 16 PYH , cut back to 0.5 ppd with [facility] stay Alcohol Use Standard Drinks/Week Comments Not Currently 0 (1 standard drink = 0.6 oz pur e alcohol) 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 07/11/2021 Social Connections Answer Date Recorded Connectedness 0 11/27/2023 Financial Resource Strain Answer Date R ecorded [...] encounter Progress Notes * Marquis Burnett - 11/28/2023 5:28 PM EDT Client met with CM and Medical team for client rounds. Client states his mood has been pretty good since the last time we all had met. Client is eager to go back on outings, [facility] team will allow client to continue outings as long as urine readings come back drug free. CM and client were able to inquire and apply for [employer]. Client reports that his father lives there, and he would love to live close by to his father. Client will gather bank documents for CM to submit. Client reports the rent as $1095, which would be affordable according to client. documented in this encounter Plan of Treatment Not on file documented as of this encounter Goals Goal Patient Goal Type Associated Problems Recent Progress Patient-Stated? Author Help patient manage hypertension Care Plan Patient has a diagnosis of hypertension No Zara Finch NP documented as of this encounter Visit Diagnoses Not on filedocumented in this encounter Additional Health Concerns Active Problems Noted Date Diagnosed Date Patient has a diagnosis of hypertension 02/12/20 21 Assessment Noted Time PHQ-9 Depression Total Score: 9 01/04/20 18 10:00 AM PDT PHQ-2 Depression Total Score: 0 04/02/19 24 1:00 PM PST documented as of this encounter Care Teams Chainstitch Binder Relationship Specialty [place] [address] PCP - General 12/22/24 [facility] [facility] Addiction Health Chainstitch Binder 02/25/18 [facility] 03/01/22 documented as of this encounter
--- OUTSIDE RECORDS SUMMARY | 2025-02-04 16:34 | XMS_ITS | Encounter Summary ---
Author Organization [facility] Address [address] [place] [address] Care Team Providers Care Crab Picker Name Role Phone Ochin, Provider Primary Care Provider Unavailabl e Encounter Details Date Type Department Care Team (Late st Contact Info) Description 07/18/2023 Case Management Visit [facility] [address] [facility] SECOND [facility]LOOR [place] [place] [phone] Marquis Lex [address] [facility] [place] [address] Social History Tobacco Use Types Packs/Day Years [...] encounter Progress Notes * Marquis Burnett - 07/18/2023 10:54 AM EDT Client presented to CM meeting in a down mood, reports feeling depressed this week, has mostly beenin bed for most hours of day. client reports being on new medication and is hopeful that the new medication will aid in improving his daily living. Client told CM he has not been as active in his housing search and feels it's a result of the depression he has been feeling this week. I reiterated to client if he needs assistance with using the housing search tool, I can help him. Client insisted that he will meat pickler where he left off with housing search and believes he will be more productive as his mood stabilizes. Client was able to receive benefit letter from [employer] to confirm his pension amount. documented in this encounter Plan of Treatment [...] documented as of this encounter Care Teams Crab Picker Relationship Specialty Start [place] [address] PCP - General 12/22/24 [facility] Addiction Health Crab Picker 02/25/18 [facility] 03/01/22 documented as of this encounter
--- OUTSIDE RECORDS SUMMARY | 2025-02-04 16:35 | XMS_ITS | Encounter Summary ---
Author Organization [facility] Address [address] [place] [address] Care Team Providers Care Home Hospice Rn Name Role Phone Ochin, Provider Primary Care Provider Unavailabl e Encounter Details Date Type Department Care Team (Late st Contact Info) Description 03/29/2022 Case Management Visit [facility] [address] [facility] SECOND FLOOR [place] [place] [phone] Marquis Lex [address] [place] [address] Social History Tobacco Use Types Packs/Day Years [...] 11/12/2018 Food Insecurity Answer Date Recorded Food 1 11/02/2021 Transportation Needs Answer Date Record ed Transportation 1 11/02/2021 Housing Stability Answer Date Recorded Housing 1 11/02/2021 Safety and Environment Answer Date Nitin rded Safety 0 11/12/2018 Utilities Answer Date Recorded Utilities 1 11/02/2021 Employment Answer Date Recorded Employment 1 11/02/2021 Sex and Gender Information Value Date Recorded Sex Assigned at Not on file Legal Sex Male 5:37 PM PDT Gender Identity Not on file Sexual Orientation Not on file documented as of this encounter Progress Notes * Marquis Burnett - 03/30/2022 12:07 PM EST Sushant has been keeping up with his dialysis schedule, and has been independently booking his rides to the clinic. He has been looking into getting on the list for a kidney transplant, so he wouldn't have to keep up with a dialysis schedule. Sushant and I have started a light search on market rate housing. His budget ranges from $1200-$1500 documented in this encounter Plan of Treatment [...] AM PDT PHQ-2 Depression Total Score: 0 02/03/20 22 11:00 AM PST documented as of this encounter Care Teams Home Hospice Rn Relationship Specialty Start Date [place] [address] PCP - General 12/22/24 [facility] [facility] Addiction Health Home Hospice Rn 02/25/18 [facility] 03/01/22 documented as of this encounter
--- OUTSIDE RECORDS SUMMARY | 2025-02-04 16:35 | XMS_ITS | Encounter Summary ---
Author Organization [facility] Address [address] [place] [address] Care Team Providers Care Entry Level Financial Analyst Name Role Phone Megan Goodwin MD Unavailable [phone] System, Provider Not In Primary Care Provider Un available Mal Mcclelland MD Primary Care Provider + Vannessa Jimenez MD Unavailable [phone] None, Pcp Primary Care Provider Unavailabl e Unknown, Provider Primary Care Provider [facility] Primary Care Provi maria ines Ketan Verde NP Primary Care Provider [phone] System, Provider Not In Primary Care Provider Un available Unknown, Provider Primary Care Provider [facility] Akin Christianson WAIST CUTTER Primary Care Provider [phone] Encounter Details Date Type Department Care Team (Late st Contact Info) Description 06/22/2022 Orders Only [facility] [address] [place] [address] Vaishali Cooper RN Social History Tobacco Use Types Packs/Day Years Used Date Smoking Tobacco: Every Day Cigarettes Alcohol Use Standard Drinks/Week Comments Yes 0 (1 standard drink = 0.6 oz pur e alcohol) daily Sex and Gender Information Value Date Recorded Sex Assigned at Male 05/20/2019 2:37 PM EST Legal Sex Male 11:50 AM EST Gender Identity Male 05/20/2019 2:37 PM EST Sexual Orientation Not on file documented as of this encounter Plan of Treatment Not on file documented as of this encounter Visit Diagnoses Not on filedocumented in this encounter Additional Health Concerns Infection Onset Date Last Indicated Resolved Time COVID Suspect 01/04/2023 01/04/2023 01/05/2023 6:1 3 AM EDT COVID Suspect 04/24/2023 04/24/2023 04/25/2023 12: 01 [...] documented as of this encounter Care Teams Entry Level Financial Analyst Relationship Specialty Start Date End Date System, Provider Not In [address] [place] [address] PCP - General 06/17/22 01/01/23 Mal Mcclelland MD [address] [place] [address] PCP - General Internal Medicine 01/02/23 04/23/23 Vannessa Jimenez MD [address] [place] [address] PCP - Resident Internal Medicine 01/02/23 04/23/23 None, Pcp, [address] [place] [address] PCP - General 04/24/23 10/19/23 Unknown, Provider, [address] [place] [address] PCP - General 10/20/23 02/19/[address], [address] PCP - General 02/20/24 03/04/24 Ketan Verde WAIST CUTTER [address] [place] [address] PCP - General Psychiatry 03/05/24 07/29/24 System, Provider Not In PCP - General 07/30/24 01/30/25 Unknown, Provider, [address] [place] [address] PCP - General 01/31/25 02/02/25 Akin Christianson NP [address] [place] [address] PCP - General Nurse Practitioner 02/03/25 Megan Goodwin MD [facility] [place] [address] 04/08/10 01/01/23 documented as of this encounter
--- OUTSIDE RECORDS SUMMARY | 2025-02-04 16:35 | XMS_ITS | Encounter Summary ---
Author Organization [facility] Address [address] [place] [address] Care Team Providers Care Writer Editor Name Role Phone Ochin, Provider Primary Care Provider Unavailabl e Encounter Details Date Type Department Care Team (Late st Contact Info) Description 04/07/2022 Case Management Visit [facility] [address] [facility] [place] [address] [place] [phone] Marquis Lex [address] [place] [address] Social History Tobacco Use Types Packs/Day Years [...] Food Insecurity Answer Date Recorded Food 2 04/07/2022 Transportation Needs Answer Date Record ed Transportation 2 04/07/2022 Housing Stability Answer Date Recorded Housing 2 04/07/2022 Safety and Environment Answer Date Nitin rded Safety 0 11/12/2018 Utilities Answer Date Recorded Utilities 2 04/07/2022 Employment Answer Date Recorded Employment 2 04/07/2022 Sex and Gender Information Value Date Recorded Sex Assigned at Not on file Legal Sex Male 5:37 PM PDT Gender Identity Not on file Sexual Orientation Not on file documented as of this encounter Progress Notes * Marquis Burnett - 04/07/2022 10:59 AM EST Sushant Christianson discharged himself from [facility] today. Sushant had admitted to using drugs inside of the building about two weeks ago. Sushant received a written warning for the incident. Case management and Medical Staff decided to prohibit any outings until further notice. Sushant was toonly leave the building: for diallyls treatment, and accompanied by a ground support agent. Sushant had scheduled a time for him and his father to have breakfast this morning at . However,upon learning that he would not be permitted to leave for the outing, Sushant decided to leave anyway.director of managed services Amrit Mir informed Sushant that he would be giving up his bed if he left against staff advisory. Sushant became escalated and expressed his agitation with expletive language. [place] belongings were bagged up and will be kept here until he coordinates a time to pick them up, along with his medication. Sushant is scheduled to have Dialysis treatments this 04/08/2021. His transportation is not currently set up for tomorrow, as he needed to add funds to his account for [employer]. Before his discharge, Sushant had finally agreed on undergoing Dialysis treatment, and had been going since December. He is independent in setting up his transportation, however is not equipped to managehis own money. His father, 92 years old, is currently his payee and has access to his funds. To my u nderstanding, Sushant has about $7500-$8000 in a savings account, for housing. Sushant and case management had begun a search for market rate apartments, in the budget of $1200-$1500. He planned on findinga place where he and his partner could live together. Sushant does not have any upcoming medical appointments coming up. He has scheduled dialysis treatmenton Sunday, , and Sunday of every week. documented in this encounter Plan of Treatment [...] documented as of this encounter Care Teams Writer Editor Relationship Specialty [place] [address] PCP - General 12/22/24 [facility] Addiction Health Writer Editor 02/25/18 [facility] 03/01/22 documented as of this encounter
--- OUTSIDE RECORDS SUMMARY | 2025-02-04 16:35 | XMS_ITS | Encounter Summary ---
Author Organization [facility] Address [address] [place] [address] Care Team Providers Care Trans Router Name Role Phone Ochin, Provider Primary Care Provider Unavailabl e Encounter Details Date Type Department Care Team (Late st Contact Info) Description 05/16/2023 Case Management Visit [facility] [address] [facility] SECOND FLOOR [place] [address] Marquis Lex [address] [facility] [place] [address] Social History Tobacco Use Types Packs/Day Years [...] encounter Progress Notes * Marquis Burnett - 05/16/2023 3:23 PM EST Client has made attempts to find market rate housing. Has also called [employer] every morningto see availability. Client has expressed interest in going to [employer] when he can. documented in this encounter Plan of Treatment [...] documented as of this encounter Care Teams Trans Router Relationship Specialty [place] [address] PCP - General 12/22/24 [facility] Addiction Health Trans Router 02/25/18 [facility] 03/01/22 documented as of this encounter
--- OUTSIDE RECORDS SUMMARY | 2025-02-04 16:35 | XMS_ITS | Encounter Summary ---
Author Organization [facility] Address [address] [place] [address] Care Team Providers Care Rn Documentation Name Role Phone Ochin, Provider Primary Care Provider Unavailabl e Encounter Details Date Type Department Care Team (Late st Contact Info) Description 01/16/2024 Case Management Visit [facility] [address] [facility] SEC[facility] [place] [phone] Marquis Lex [address] [facility] [place] [address] Social History Tobacco Use Types Packs/Day Years [...] documented as of this encounter Care Teams Rn Documentation Relationship Specialty Start [place] [address] PCP - General 12/22/24 [facility] [facility] Addiction Health Rn Documentation 02/25/18 [facility] 03/01/22 documented as of this encounter
--- OUTSIDE RECORDS SUMMARY | 2025-02-04 16:35 | XMS_ITS | Clinical Summary ---
Author Organization [facility] Address [address] [place] [address] Care Team Providers Care [facility] Dentist Name Role Phone [place], Provider Primary Care Provider Unavailabl e Source Comments PLEASE NOTE, if this patient is a minor, it may be UNLAWFUL to discuss sensitive information that is contained in these records (such as FAMILY PLANNING, MENTAL HEALTH or SUBSTANCE ABUSE) with the minor patient's parent or other person without the patient's specific authorization.[facility] Allergies No known active allergies Medications * This document contains information received from the source organization and may not represent a complete record from that organization. loperamide 2 mg tabletIndication s:Diarrhea, unspecified type Initial: 2 tablets (4 mg), followed by 2 mg after each loose stool; maximum: 8 tablets / day 16 Tablet 06/28/19 25 Active MISCELLANEOUS MEDICAL SUPPLY MISC Take one packet once daily. 30 Each 11/04/19 25 Active cinacalcet 90 mg tab Given at dialysis on , and Sunday. 30 Tablet 11/29/19 25 Active sennosides (SENOKOT) 8.6 mg tablet Take 1 Tablet by mouth nightly at bedtime as needed for constipatio n. 30 Tablet 11/29/19 25 Active sevelamer carbonate (RENVELA) 800 mg tabletIndication s:Hyperphosphate jean Take 1 Tablet by mouth 3 (three) times daily with meals. 90 Tablet 11/29/19 25 Active brexpiprazole (REXULTI) 3 mg tabIndications:S evere episode of recurrent major depressive disorder, without psychotic features,Anxiety Take 1 Tablet by mouth every morning. 30 Tablet 2 12/09/19 25 Active melatonin 3 mg tabletIndication s:Other insomnia Take 3 Tablets by mouth nightly at bedtime. 90 Tablet 2 12/09/19 25 Active lamoTRIgine (LAMICTAL) 25 mg tabletIndication s:Severe episode of recurrent major depressive disorder, without psychotic features Take 1 Tablet by mouth once daily. 30 Tablet 2 12/09/19 25 Active acetaminophen (TYLENOL) 500 mg tabletIndication s:Acute non intractable tension-type headache Take 1 Tablet by mouth every 6 (six) hours as needed for pain. 120 Tablet 01/07/20 25 Active ferrous sulfate 324 mg (65 mg iron) TbEC Take 1 Tablet by mouth daily [facility] please deliver. 30 Tablet 01/07/20 25 Active traZODone (DESYREL) 50 mg tabletIndication s:Other insomnia TAKE 1 TABLET BY MOUTH EVERYDAY AT BEDTIME 90 Tablet 1 01/10/20 25 Active pantoprazole (PROTONIX) 40 mg EC tablet TAKE 1 TABLET BY MOUTH 2 (TWO) TIMES DAILY [facility] PLEASE DELIVER. 180 Tablet 01/13/20 25 Active OLANZapine (ZYPREXA) 10 mg tabletIndication s:Severe episode of recurrent major depressive disorder, without psychotic features,Anxiety TAKE 1 TABLET BY MOUTH TWICE A DAY 180 Tablet 1 01/13/20 25 Active hydrOXYzine HCL (ATARAX) 50 mg tabletIndication s:Severe episode of recurrent major depressive disorder, without psychotic features,Anxiety TAKE 1 TABLET BY MOUTH 3 TIMES DAILY NEEDED FOR ANXIETY. 270 Tablet 1 01/13/20 25 Active sodium zirconium cyclosilicate (LOKELMA) 5 gram pwpkIndications: Stage 5 chronic kidney disease on chronic dialysis Take 5 gram (one packet) once daily. 30 Packet 01/16/20 25 Active thiamine (VITAMIN B-1) 100 mg tabletIndication s:Alcohol dependence with uncomplicated intoxication Take 1 Tablet by mouth once daily. 30 Tablet 01/17/20 25 Active clopidogreL (PLAVIX) 75 mg tablet Take 1 Tablet by mouth once daily. 30 Tablet 01/22/20 25 Active folic acid (FOLVITE) 1 mg tabletIndication s:Episode of recurrent major depressive disorder, unspecified depression episode severity Take 1 Tablet by mouth once daily. 30 Tablet 01/22/20 25 Active atorvastatin (LIPITOR) 80 mg tablet TAKE 1 TABLET BY MOUTH NIGHTLY AT BEDTIME [facility] PLEASE DELIVER. 90 Tablet 1 01/23/20 25 Active sertraline (ZOLOFT) 100 mg tabletIndication s:Severe episode of recurrent major depressive disorder, without psychotic features,Anxiety TAKE 2 TABLETS BY MOUTH EVERY DAY 180 Tablet 01/27/20 [address] aspirin [address] tabletIndication s:Chest pain, unspecified type TAKE 1 TABLET BY MOUTH EVERY DAY 90 Tablet 1 01/30/20 25 Active midodrine (PROAMATINE) 2.5 mg tabletIndication s:Hypotension, unspecified hypotension type Take 1 Tablet by mouth once daily as needed for other reason (if sbp is <100). 30 Tablet 2 02/04/20 25 Active gabapentin (NEURONTIN) 100 mg capsule Take 100 mg by mouth. 01/31/20 25 Active metoprolol tartrate (LOPRESSOR) 25 mg tabletIndication s:Hypertensive renal disease with renal failure Take 0.5 Tablets by mouth once daily Take if SBP>140. 30 Tablet 1 02/04/20 25 Active acetaminophen (TYLENOL) 500 mg tabletIndication s:Acute non intractable tension-type headache Take 1 Tablet by mouth every 6 (six) hours as needed for pain 120 Tablet 03/21/20 24 025 Discontinued(Re order (E-Cancel Not Sent)) aspirin [address] tabletIndication s:Chest pain, unspecified type Take 1 Tablet by mouth once daily. 30 Tablet 1 11/11/19 25 025 Discontinued(Re order (E-Cancel Not Sent)) sodium zirconium cyclosilicate (LOKELMA) 5 gram pwpkIndications: Stage 5 chronic kidney disease on chronic dialysis Take 5 gram (one packet) once daily. 30 Packet 11/11/19 25 025 Discontinued(Re order (E-Cancel Not Sent)) ferrous sulfate 324 mg (65 mg iron) TbEC Take 1 Tablet by mouth daily [facility] please deliver. 30 Tablet 11/18/19 25 025 Discontinued(Re order (E-Cancel Not Sent)) atorvastatin (LIPITOR) 80 mg tablet Take 1 Tablet by mouth nightly at bedtime [facility] please deliver. 30 Tablet 11/29/19 25 025 Discontinued carvediloL (COREG) 12.5 mg tablet Take 1 Tablet by mouth 2 (two) times daily with a meal [facility] please deliver. 60 Tablet 11/29/19 25 025 Discontinued(Re order (E-Cancel Not Sent)) clopidogreL (PLAVIX) 75 mg tablet Take 1 Tablet by mouth once daily. 30 Tablet 11/29/19 25 025 Discontinued(Re order (E-Cancel Not Sent)) folic acid (FOLVITE) 1 mg tabletIndication s:Episode of recurrent major depressive disorder, unspecified depression episode severity Take 1 Tablet by mouth once daily. 30 Tablet 11/29/19 25 025 Discontinued(Re order (E-Cancel Not Sent)) pantoprazole (PROTONIX) 40 mg EC tablet Take 1 Tablet by mouth 2 (two) times daily [facility] please deliver. 60 Tablet 11/29/19 25 025 Discontinued(Re order (E-Cancel Not Sent)) thiamine (VITAMIN B-1) 100 mg tabletIndication s:Alcohol dependence with uncomplicated intoxication Take 1 Tablet by mouth once daily. 30 Tablet 11/29/19 25 025 Discontinued(Re order (E-Cancel Not Sent)) traZODone (DESYREL) 50 mg tabletIndication s:Other insomnia Take 1 Tablet by mouth nightly at bedtime. 30 Tablet 2 12/09/19 25 025 Discontinued sertraline (ZOLOFT) 100 mg tabletIndication s:Severe episode of recurrent major depressive disorder, without psychotic features,Anxiety Take 2 Tablets by mouth once daily. 60 Tablet 2 12/09/19 25 025 Discontinued OLANZapine (ZYPREXA) 10 mg tabletIndication s:Severe episode of recurrent major depressive disorder, without psychotic features,Anxiety Take 1 Tablet by mouth 2 (two) times daily. 60 Tablet 2 12/09/19 25 025 Discontinued hydrOXYzine HCL (ATARAX) 50 mg tabletIndication s:Severe episode of recurrent major depressive disorder, without psychotic features,Anxiety Take 1 Tablet by mouth 3 (three) times daily as needed for anxiety. 90 Tablet 2 12/09/19 25 0[address] Discontinued [address] tabletIndication s:Chest pain, unspecified type Take 1 Tablet by mouth once daily. 30 Tablet 1 01/07/20 25 025 Discontinued folic acid (FOLVITE) 1 mg tabletIndication s:Episode of recurrent major depressive disorder, unspecified depression episode severity Take 1 Tablet by mouth once daily. 30 Tablet 01/07/20 25 025 Discontinued(Re order (E-Cancel Not Sent)) pantoprazole (PROTONIX) 40 mg EC tablet Take 1 Tablet by mouth 2 (two) times daily [facility] please deliver. 60 Tablet 01/07/20 25 025 Discontinued thiamine (VITAMIN B-1) 100 mg tabletIndication s:Alcohol dependence with uncomplicated intoxication Take 1 Tablet by mouth once daily. 30 Tablet 01/07/20 25 025 Discontinued(Re order (E-Cancel Not Sent)) midodrine (PROAMATINE) 2.5 mg tablet Take 2.5 mg by mouth once daily as needed for other reason (if sbp is <100). 12/30/19 025 Discontinued(Re order (E-Cancel Not Sent)) carvediloL (COREG) 12.5 mg tabletIndication s:Hypertensive renal disease with renal failure Take 1 Tablet by mouth 2 (two) times daily as needed for other reason (Take if BP is >140/100) [facility] please deliver. 60 Tablet 01/21/20 025 Discontinued(Ca ncelled) metoprolol tartrate (LOPRESSOR) 25 mg tablet Take 12.5 mg by mouth. 01/31/20 025 Discontinued(Re order (E-Cancel Not Sent)) Active Problems Problem Noted Date Diagnosed Date Hemodialysis-associated hypotension 07/30/2024 Assessment & Plan (11/07/2024 10:36 AM EDT): Likely 2/2 poor fluid intake Encourage patient to increase fluids If consistent low Bps, may need med adjustments or dialysis adjustment Assessment & Plan (07/30/2024 10:46 AM EDT): Symptomatic hypotension following dialysis 07/29/24. Patient with dizziness. In clinic with continually decreasing BP. Cardiopulmonary exam unremarkable. 9:30 AM 88/59 10AM 82/59 10:15AM 79/51 Likely hypovolemic s/p dialysis given persistently decreasing BP and symptomatic, recommend hospital transfer. No signs and symptoms of infection or acute blood loss, no change in meds. 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 Patient declining going to [facility]. Reviewed concerns for safety. Likely needs IV fluids. Agreeable to go to [facility]. -Ambulance called. Patient to go to hospital Right bundle branch block 07/30/2024 Overview (08/06/2024): 07/23 outside EKG showed RBB and LAFB Assessment & Plan (09/03/2024 10:35 AM EDT): Asx 09/15 cards Assessment & Plan (08/20/2024 11:21 AM EDT): Pt asx Per med team, cards communicated would like to hold on echo/stress/testing at this time Fu as scheduled 09/15 cards Assessment & Plan (08/14/2024 12:59 PM EDT): New EKG finding Asx Msg left with cards office re: echo, stress 09/15 cards Assessment & Plan (08/06/2024 12:09 PM EDT): Asymptomatic Reviewed and discussed results Typically should have echo and stress (nuclear) - call cards to inquire if any additional testing desired vs. earlier appt - 09/15 cards Assessment & Plan (08/05/2024 2:46 PM EDT): Asx today 07/30 seen at ED for sx hypotension and new RBBB -EKG showed same finding: new RBBB and left anterior fascicular block -sxs thought to be 2/2 dialysis and BP med dosing 09/15 cards Assessment & Plan (07/30/2024 10:45 AM EDT): On screening ECG 07/23/24 at outside facility found to have new RBBB and Left anterior fascicular block Pt asymptomatic from a cardiac standpoint, aside from hypotension (see above) However, CO can't be ruled out, sending to hospital as above Nightmares 07/25/2024 Assessment & Plan (08/14/2024 4:39 PM EDT): Asked how they slept last night, stated they slept fine. Asked if they were still having vivid dreams / nightmares, confirmed they still are. However the dreams they have do not affect their ability to fall back asleep if they are woken up. Confirms they have no issue falling back asleep when this occurs. Assessment & Plan (07/29/2024 10:04 AM EDT): Cont nightmares & weird dreams. Denies difficulty falling asleep w melatonin, but vivid dreams wake him up. Counseled on mindful meditation & breathing after nightmares. Assessment & Plan (07/25/2024 1:04 PM EDT): A: having nightmares 3-4 times per week. Started a couple of months ago. Remembers nightmares in the morning. P: Due to patient's chronic hypotension he is not a good candidate to take prazosin to decrease nightmares. After reviewing patient medication list he is on three medications that have nightmares as a possible side effect: sertraline, coreg, and lipitor. Patient has been on these three medications for over six months. Low concern that the medications are causing the nightmares at this time. Reviewed non pharmacological ways to reduce nightmares with patient. Relaxation and mindfulness before bed. Progressive muscle relaxation. Establish a regular bedtime. Thyroid nodule 05/28/2024 Overview (10/22/2024): 10/20/2024: [facility] [place] we discussed the different thyroid neoplasms including difference between benign and malignant thyroid masses and the complexity of this situation in some patients. We discussed the indolent nature of PTC and the option of active surveillance given his comorbidities. While active surveillance is currently only recommended for PTC < 1.5 cm, I think the the risks of GETA outweight the risks of thyroidectomy. We will see him again in six months. 10/03/2024: Biopsy suspicious of papillary carcinoma 09/30/2024: thyroid nodule FNA performed at [facility] [place] 05/2024: enlarged heterogeneous thyroid gland with multiple left nodules all of which meet criteria for FNA 04/2024: incidental finding on CT chest Heterogeneous, enlarged and multinodular thyroid with left-sided nodule measuring up to 4 cm Assessment & Plan (11/27/2024 12:01 PM EDT): Asx Active surveillance of thyroid nodules Follows with endocrine and oncology surg 05/21 endo appt Assessment & Plan (11/20/2024 9:08 AM EDT): Active surveillance F/u with endocrine in 6 months (apr 2025) with rpt labs and ultrasound Assessment & Plan (11/17/2024 12:01 PM EDT): Follows with endocrine and endo surg 6 month active surveillance (~04/2025) Rpt US and labs ordered Assessment & Plan (11/07/2024 10:37 AM EDT): Active surveillance of thyroid nodule 6 month follow up with Dr. Quiroga, surg onc (~04/2025) 11/07 endocrine - intake Assessment & Plan (11/05/2024 12:06 PM EDT): 11/07 endocrine intake appt Saw Dr. Quiroga, surg onc, and plan for active surveillance of thyroid with 6 month follow up Assessment & Plan (11/03/2024 1:22 PM EDT): Active surveillance planned with surgeon, Dr. Quiroga, given small lesion size and comorbidities if considering intervention 11/07 endo appt F/u 6 months with surg onc Assessment & Plan (10/27/2024 11:09 AM EDT): Saw Dr. Quiroga, surg onc on 10/20 to follow up on recent thyroid bx results Plan for active surveillance given small size of lesion and comorbidities if considering intervention 11/07 endo appt F/u 6 months with surg onc Assessment & Plan (10/22/2024 3:39 PM EDT): Saw [facility] onc on 10/20 for assessment of recent thyroid FNA. Surgeon's plan is active surveillance given how small the lesion is (PTC<1.5cm) Pt is relieved and less concerned after meeting with surgeon - 11/07 endo appt - F/u with surg onc in 6 months to continue monitoring Assessment & Plan (10/16/2024 9:38 AM EDT): Asx 10/27 surgical consult 11/07 endocrine Assessment & Plan (10/13/2024 2:07 PM EDT): Reviewed the following with patient. I spoke with his cooker sulfite, Dr. Ivey, about next steps after thyroid biopsy. Per his recommendations, I have placed a surgical referral. Endocrine will follow the case at some point but next step should be surgical consult. Appt pending Assessment & Plan (10/10/2024 11:25 AM EDT): Day 10 s/p thyroid FNA Healing well Has appt with endo next month to discuss biopsy findings On cancellation list for sooner appt Assessment & Plan (10/08/2024 2:10 PM EDT): Day 8 s/p thyroid FNA, healing well, no any pain/discomfort 10/03 Biopsy findings suspicious of papillary carcinoma, findings inconclusive Next step fu with endocrine - 11/07 endo appt (currently on [facility] for sooner appt) Assessment & Plan (10/03/2024 12:05 PM EDT): Biopsy results suspicious for papillary carcinoma Patient notified of results RN called endo and left message; has appt next month with endo, ? Sooner appt, ?PET scan Assessment & Plan (10/02/2024 3:17 PM EDT): POD#2 s/p thyroid bx Sore throat and neck bruising, manageable on apap, no longer requiring oxycodone Encouraged ice packs prn Thyroid bx results pending 11/07 endocrine appt Assessment & Plan (10/01/2024 2:03 PM EDT): POD#1 s/p thyroid bx for incidental finding of thyroid nodule on chest CT (04/2024) further characterized on US 05/2024 as enlarged heterogeneous thyroid gland with multiple left nodules. Improved pain today compared to yesterday, better s/p oxycodone, didn't need today - If pain worsens should follow up and has 1 oxy pill remaining - fu thyroid bx results - 11/07 appt with endocrine Assessment & Plan (09/29/2024 1:12 PM EDT): 09/30 IR appt - thyroid bx 11/07 endocrine appt Assessment & Plan (08/14/2024 1:00 PM EDT): 11/07 endocrine appt IR referral pending Assessment & Plan (08/05/2024 2:41 PM EDT): 11/07 endocrine appt IR referral pending Assessment & Plan (07/23/2024 2:34 PM EDT): U/S in May showed 3 left thyroid nodules all meeting criteria for FNA. Patient concerned by lack of follow up. -Read thyroid ultrasound results with patient because he was unaware of exact findings -Endocrinology appt scheduled for 11/07 -Referral placed to interventional radiology to see if they can get FNA appt sooner Assessment & Plan (07/21/2024 12:07 PM EDT): Asx 11/07 endocrine Assessment & Plan (07/09/2024 9:57 AM EDT): Asx 11/07 endocrine Assessment & Plan (07/01/2024 5:32 PM EDT): US done, awaiting results Assessment & Plan (06/25/2024 2:46 PM EDT): U/S showed Multiple left thyroid nodules meeting TI-RADS criteria for FNA Patient counseled on finding, expressed understanding and agreeable with plan to fu w/ endo - Refer to endocrinology Assessment & Plan (06/20/2024 11:13 AM EDT): Asx 06/23 thyroid US Lab Results Component Value Date TSH 0.60 05/30/2024 Assessment & Plan (06/16/2024 2:57 PM EDT): 05/30/24 - TSH nl 06/05 thyroid US Lab Results Component Value Date TSH 0.60 05/30/2024 Assessment & Plan (06/02/2024 12:25 PM EDT): 05/30 TSH 0.60 nl (0.40-4.50) Asx 06/23 US Assessment & Plan (05/28/2024 11:15 AM EST): Lab not done - MA to draw today Order US to characterize better and determine if FNA indicated Lacunar stroke 04/24/2024 Overview (04/24/2024): 04/24/2024: Admitted to hospital 04/17/24 - 04/21/24 when he was found to have a stroke during dialysis - started clopidogrel - atorva 80 - carvedilol 12.5 MG BID Assessment & Plan (04/30/2024 3:06 PM EST): Stable, no new s/s Assessment & Plan (04/29/2024 10:11 AM EST): Physically, feeling well No residual symptoms, no neuro deficits on exam today Continue clopidogrel, high dose statin, carvedilol 12.5mg bid Applauded on decreased smoking Assessment & Plan (04/24/2024 10:53 AM EST): Admitted to hospital 04/17/24 - 04/21/24 when he was found to have a stroke during dialysis - started clopidogrel - atorva 80 - carvedilol 12.5 MG BID Feeling well. No obvious neuro deficits today Continue regimen Enc smoking cessation, no cocaine Obstructive sleep apnea 03/27/2024 Overview (03/27/2024): 03/27/2024: ESS = 6. Has snoring, high mallampati score. Will refer for sleep study as he is amenable to the idea of CPAP if he has MEAGAN Assessment & Plan (11/27/2024 11:51 AM EDT): Pulm team coordinating getting CPAP for pt Assessment & Plan (11/20/2024 9:04 AM EDT): Pulm team coordinating CPAP for pt Assessment & Plan (11/17/2024 12:02 PM EDT): Pulm team coordinating CPAP for pt Assessment & Plan (11/03/2024 1:23 PM EDT): Pulm team ordering CPAP for pt Assessment & Plan (10/27/2024 11:07 AM EDT): S/p sleep study, dx severe sleep apnea Waiting on CPAP machine Interested in Inspire, implantable nerve stimulator, but needs to try CPAP before it is an option Assessment & Plan (10/16/2024 9:36 AM EDT): Saw sleep med, overnight sleep study recommended, pt considering whether or not to go ahead with it Assessment & Plan (10/13/2024 2:08 PM EDT): Suspected MEAGAN per sleep med Pt to decide if he would like to do sleep study Assessment & Plan (09/29/2024 1:12 PM EDT): 10/09 pulm appt Assessment & Plan (08/27/2024 1:56 PM EDT): Has sleep study equipment, doesn't know how to use, nursing to assist ant obtain extended time for equipment from sleep lab Assessment & Plan (08/26/2024 11:50 AM EDT): Picked up sleep study equipment today Plan to drop off tomorrow or next day Assessment & Plan (07/29/2024 10:42 AM EDT): Pt to set up rides to/from [facility] to picking 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 Has snoring, high mallampati score Will refer for sleep study as he is amenable to the idea of CPAP if he has MEAGAN Nausea 11/20/2023 Assessment & Plan (11/20/2023 10:37 AM EDT): Also mentioned they were feeling some nausea when they woke up too. Also unsure if the nausea is from the dinner they had last night or a possible stomach bug. Gave the patient some oksana jg to see if it would help with their nausea. Notified the provider of the patients symptoms already. Hyperkalemia 10/26/2023 Assessment & Plan (05/14/2024 10:37 AM EST): Saw dive superintendent and told to monitor potassium intact Assessment & Plan (03/14/2024 2:31 PM EST): Previously on Kayexalate Will ask at dialysis if he requires Assessment & Plan (12/06/2023 3:39 PM EDT): 12/03/23 K+ 5.1 (WNL) Continue Kayexalate Assessment & Plan (11/07/2023 11:02 AM EDT): Improved with kayexlate 5.8 (10/24) >4.8 (11/05) - cont kayexlate given borderline elevated K Assessment & Plan (10/26/2023 12:23 PM EDT): Elevated potassium this week, likely related in setting of missing multiple sessions of dialysis Last potassium yesterday 5.8, has been elevated most of week, highest 6.0 In past has been on daily kayexelate to three times a week prior to discontinuing; unclear who and why discontinued However given elevated potassium and renal disease, decision to restart, patient in agreement Reviewed plan with BW,PA Will start at three times a week at low dose 15g; on days that does not have dialysis to help maintain potassium levels Repeat blood work on Sunday Pneumonia of both lungs due to infectious organi sm 08/08/2023 Overview (08/08/2023): 08/08/2023: Diagnosed during recent hospitalization. Bilateral. S/p treatment with ceftriaxone, doxycycline. Denies any ongoing symptoms Assessment & Plan (04/17/2024 9:25 PM EST): Symptoms improving on doxy and cefdinir No SOB, minimal cough Continue meds Encourage smoking cessation Assessment & Plan (04/16/2024 10:29 AM EST): Improving, endorses continued cough nl O2, CTAB On Doxycycline day 07/28, cefdinir day 08/02 Assessment & Plan (04/11/2024 12:45 PM EST): Has h/o PNA Current smoker Congested cough past 3 days, with thick green phlegm C/o general malaise, not moving out of bed Concerns of another bout of PNA Covid and flu negative L/s with bilateral rhonchi, exp wheeze, sl diminished at bases Abx as below; push fluids, encouraged to get out of bed, deep breathing Assessment & Plan (08/20/2023 6:46 PM EDT): Symptoms mostly resolved Finished antibiotics Monitor Assessment & Plan (08/14/2023 11:22 AM EDT): Significant improvement in symptoms Given bilateral nature, will plan to r/o HIV (last tested in 2020), TB (last tested 2022) Pt agrees with lab draw Assessment & Plan (08/10/2023 12:14 PM EDT): Completed abx regimen Lingering cough, none noted during visit NARD, l/s CTAB, VSS Counseled smoking cessation; declines Assessment & Plan (08/09/2023 1:29 PM EDT): Reviewed hospital visit Completed treatment for bilateral CAP with ceftriaxone and doxy Breathing improving, still with cough Vitals and exam reassuring Continue to encourage smoking cessation Continue to monitor Assessment & Plan (08/08/2023 4:13 PM EDT): Diagnosed during recent hospitalization Bilateral S/p treatment with ceftriaxone, doxycycline Denies any ongoing symptoms Constipation 08/08/2023 Assessment & Plan (08/14/2023 11:25 AM EDT): Now improved Assessment & Plan (08/08/2023 4:12 PM EDT): During hospitalization Sent home with bowel regimen, but suppositories not covered by insurance Senna, Dulcolax added to med list Reports flatulence, less concern for SBO Encouraged increased activity, hydration, fiber intake Elevated alkaline phosphatase level 07/17/2023 Assessment & Plan (08/14/2023 11:22 AM EDT): Since drawing blood, will obtain GGT, repeat CMP Assessment & Plan (07/17/2023 1:23 PM EDT): Elevated last week, higher than previous May be due to secondary hyperparathyroidism Did have normal US on 05/02 without intraductal dilation Can consider GGT going forward Hypertensive renal disease with renal failure Assessment & Plan (11/28/2024 9:49 AM EDT): BP well controlled today Continue with same medication regimen Assessment & Plan (11/05/2024 12:04 PM EDT): Normotensive Asx Continue current regimen monitor BP Readings from Last 3 Encounters: 11/05/24 127/84 11/04/24 125/86 11/03/24 127/86 Assessment & Plan (11/03/2024 1:21 PM EDT): Normotensive s/p d/c amlodipine and EDW adjustment at dialysis clinic Asx Continue meds Continue TTS dialysis Monitor BP Readings from Last 3 Encounters: 11/03/24 127/86 11/01/24 134/88 10/31/24 112/79 Assessment & Plan (10/30/2024 9:13 PM EDT): BP's generally low or borderline low with symptoms and recent ER visit for hypotension Will d/c amlodipine continue carvedilol Dialysis T, Th, Sat Assessment & Plan (10/27/2024 11:06 AM EDT): BP at goal today Asx BP 104/69 at 10/27/2024 10:56 AM BP (!) 80/53 at 10/26/2024 10:34 AM BP 129/78 at 10/25/2024 7:57 AM Assessment & Plan (10/10/2024 11:24 AM EDT): BP 128/81 at 10/10/2024 8:46 AM BP 136/83 at 10/09/2024 9:52 AM BP 110/72 at 10/08/2024 12:09 PM Lab Results Component Value Date NA 134 (L) 02/14/2024 K 3.6 02/14/2024 CHLORIDE 95 (L) 02/14/2024 CALCIUM 9.8 02/14/2024 BUN 13 02/14/2024 BUNCREAT 8 08/15/2023 EGFR 13 (L) 02/14/2024 CREATININE 4.67 (H) 02/14/2024 PROTEIN 7.7 08/15/2023 ALBUMIN 4.8 08/15/2023 GLOBULIN 2.9 08/15/2023 AGRATIO 1.7 08/15/2023 AST 19 08/15/2023 ALT 11 08/15/2023 ALKPHOS 240 (H) 08/15/2023 BILIRUBIN 0.5 08/15/2023 GLUCOSE 138 (H) 02/14/2024 BP well controlled Continue with current regimen Counseled low salt diet, encouraged physical activity Assessment & Plan (10/08/2024 12:52 PM EDT): well-controlled BP on current regimen Asx BP 110/72 at 10/08/2024 12:09 PM BP 118/73 at 10/07/2024 9:20 AM BP 108/68 at 10/06/2024 8:46 AM - Cont w current regimen and monitoring Assessment & Plan (10/01/2024 1:58 PM EDT): well-controlled BP on current regimen asx BP 135/78 at 10/01/2024 9:46 AM BP 113/73 at 09/30/2024 4:50 PM BP 123/76 at 09/29/2024 10:25 AM - Continue with current regimen and monitoring. Assessment & Plan (09/29/2024 1:12 PM EDT): BP well controlled Continue current regimen Monitor BP 123/76 at 09/29/2024 10:25 AM BP 112/73 at 09/27/2024 9:34 AM BP 135/84 at 09/25/2024 11:31 AM Assessment & Plan (09/08/2024 10:05 AM EDT): BP at goal Continue current meds Monitor Last 3 BP Readings: Date: BP: 09/08/2024 124/75 09/06/2024 127/89 09/05/2024 107/69 Assessment & Plan (09/03/2024 10:35 AM EDT): Low end of normal with episodic lightheadedness Decrease amlodipine to 5mg qd monitor BP Readings from Last 5 Encounters: 09/03/24 95/60 09/02/24 119/77 09/01/24 90/67 08/30/24 (!) 144/77 08/29/24 106/64 Assessment & Plan (09/01/2024 1:34 PM EDT): Labile BP Meeting with corporate services manager soon, will discuss med changes vs dialysis adjustments Continue currents meds Last 3 BP Readings: Date: BP: 09/01/2024 90/67 08/30/2024 144/77 08/29/2024 106/64 Assessment & Plan (08/26/2024 11:48 AM EDT): BP at goal Continue current meds monitor BP Readings from Last 3 Encounters: 08/26/24 106/71 08/25/24 133/83 08/23/24 114/73 Assessment & Plan (08/14/2024 12:58 PM EDT): BP at goal Continue current meds Monitor Last 3 BP Readings: Date: BP: 08/14/2024 111/74 08/13/2024 104/67 08/12/2024 146/80 Assessment & Plan (08/06/2024 12:12 PM EDT): BP at goal today Last 3 BP Readings: Date: BP: 08/06/2024 111/68 08/05/2024 119/70 08/04/2024 129/82 Assessment & Plan (08/05/2024 2:38 PM EDT): BP well controlled Continue current meds monitor Last 3 BP Readings: Date: BP: 08/05/2024 119/70 08/04/2024 129/82 08/03/2024 132/70 Assessment & Plan (07/31/2024 3:22 PM EDT): BP at goal today though went to ED yesterday for symptomatic hypotension thought 2/2 HTN meds and dialysis Continue amlodipine 5mg bid, carvedilol 12.5mg bid May need further dose reductions if hypotension recurs Last 3 BP Readings: Date: BP: 07/31/2024 128/74 07/30/2024 117/79 07/29/2024 136/84 Assessment & Plan (07/29/2024 10:38 AM EDT): BP reasonably well controlled Continue current meds Consistent with dialysis Monitor Last 3 BP Readings: Date: BP: 07/29/2024 136/84 07/28/2024 127/75 07/26/2024 131/81 Assessment & Plan (07/21/2024 12:05 PM EDT): BP at goal today Labile, but reasonably well controlled Continue current meds monitor Last 3 BP Readings: Date: BP: 07/21/2024 112/75 07/19/2024 147/86 07/18/2024 102/61[RN informed and the patient was couraged to keep drinkings fluids.[ Assessment & Plan (06/27/2024 11:14 AM EDT): Last 3 BP Readings: Date: BP: 06/27/2024 131/82 06/26/2024 143/88 06/25/2024 131/67 Normotensive today despite missing dialysis yesterday Continue with current regimen Assessment & Plan (06/25/2024 3:53 PM EDT): Initially with elevated BP of 147/90 approx 2hrs after meds (carvedilol, amlodipine) On re-check, noted to have BP 92/58 Denies dizziness or any other symptoms Assessed by nursing Given gatorade Encouraged to follow up if symptomatic Repeat blood pressure in afternoon normal 131/67 - Hold anti-hypertensives if BP <120/65 Last 3 BP Readings: Date: BP: 06/25/2024 92/58[manual BP[ 06/24/2024 119/77 06/23/2024 150/86 Assessment & Plan (06/02/2024 12:23 PM EDT): BP at goal Monitor Last 3 BP Readings: Date: BP: 06/02/2024 118/76 05/31/2024 146/94 05/30/2024 133/78 Assessment & Plan (05/28/2024 11:11 AM EST): Bp well controlled Last 3 BP Readings: Date: BP: 05/28/2024 116/76 05/27/2024 131/80 05/26/2024 128/73 Assessment & Plan (05/21/2024 10:36 AM EST): Well controlled today Last 3 BP Readings: Date: BP: 05/21/2024 136/80 05/19/2024 138/80 05/17/2024 157/95 Assessment & Plan (05/14/2024 10:36 AM EST): At goal today Last 3 BP Readings: Date: BP: 05/14/2024 131/83 05/13/2024 164/88 05/10/2024 180/101[Pt is asymptomatic, RN's informed.[ Assessment & Plan (05/08/2024 12:14 PM EST): Bp elevated, asx Has dialysis today Monitor Last 3 BP Readings: Date: BP: 05/08/2024 169/87 05/07/2024 142/80 05/06/2024 147/86 Assessment & Plan (05/07/2024 10:33 AM EST): [place] elevated Asx Monitor at this Last 3 BP Readings: Date: BP: 05/07/2024 142/80 05/06/2024 147/86 05/05/2024 133/89 Assessment & Plan (05/06/2024 9:55 AM EST): Elevated SBP today, asx Missed dialysis Sunday but reports he will be attending today Last 3 BP Readings: Date: BP: 05/06/2024 147/86 05/05/2024 133/89 05/02/2024 130/78 Assessment & Plan (04/30/2024 3:07 PM EST): Well-controlled today, asx Last 3 BP Readings: Date: BP: 04/30/2024 128/72 04/29/2024 144/86 04/28/2024 144/90 Assessment & Plan (04/23/2024 9:18 AM EST): Above goal today, asx Montior Last 3 BP Readings: Date: BP: 04/23/2024 152/82 04/22/2024 123/78 04/21/2024 119/68 Assessment & Plan (04/16/2024 10:25 AM EST): Uncontrolled, elevated BP in setting of not going to dialysis 04/15 (overslept) Denies s/s of CO or CVA Increase carvediolol to 12.5mg bid, cont amlodipine 5mg bid Last 3 BP Readings: Date: BP: 04/15/2024 174/98 04/11/2024 148/93 04/10/2024 151/91 Assessment & Plan (04/02/2024 11:40 AM EST): Improved BP Last 3 BP Readings: Date: BP: 04/02/2024 138/74 04/01/2024 146/88 03/31/2024 140/94 Assessment & Plan (03/17/2024 11:21 AM EST): BP above goal Increase amlodipine to 7.5 mg qd Monitor Last 3 BP Readings: Date: BP: 03/17/2024 154/80 03/14/2024 125/86 03/13/2024 142/82[Manual bp[ Assessment & Plan (03/13/2024 9:11 PM EST): Last 3 BP Readings: Date: BP: 03/13/2024 142/82[Manual bp[ 03/12/2024 152/91 01/21/2024 179/113 BP above goal. Clarified med list with RN. Will consider increasing amlodipine if elevations persist Assessment & Plan (01/18/2024 11:47 AM EDT): Last 3 BP Readings: Date: BP: 01/18/2024 134/86 01/17/2024 141/80 01/16/2024 131/84 Lab Results Component Value Date NA 137 08/15/2023 K 4.5 08/15/2023 CHLORIDE 94 (L) 08/15/2023 CALCIUM 9.7 08/15/2023 BUN 47 (H) 08/15/2023 BUNCREAT 8 08/15/2023 EGFR 10 (L) 08/15/2023 CREATININE 6.09 (H) 08/15/2023 PROTEIN 7.7 08/15/2023 ALBUMIN 4.8 08/15/2023 GLOBULIN 2.9 08/15/2023 AGRATIO 1.7 08/15/2023 AST 19 08/15/2023 ALT 11 08/15/2023 ALKPHOS 240 (H) 08/15/2023 BILIRUBIN 0.5 08/15/2023 GLUCOSE 109 (H) 08/15/2023 BP stable during visit Continue with current regimen Assessment & Plan (12/28/2023 11:42 AM EDT): Last 3 BP Readings: Date: BP: 12/28/2023 106/64 12/27/2023 124/80[Manual[ 12/26/2023 132/86 Lab Results Component Value Date NA 137 08/15/2023 K 4.5 08/15/2023 CHLORIDE 94 (L) 08/15/2023 CALCIUM 9.7 08/15/2023 BUN 47 (H) 08/15/2023 BUNCREAT 8 08/15/2023 EGFR 10 (L) 08/15/2023 CREATININE 6.09 (H) 08/15/2023 PROTEIN 7.7 08/15/2023 ALBUMIN 4.8 08/15/2023 GLOBULIN 2.9 08/15/2023 AGRATIO 1.7 08/15/2023 AST 19 08/15/2023 ALT 11 08/15/2023 ALKPHOS 240 (H) 08/15/2023 BILIRUBIN 0.5 08/15/2023 GLUCOSE 109 (H) 08/15/2023 BP stable Continue with current regimen Assessment & Plan (12/24/2023 9:41 AM EDT): Elevated BP today, though asx Thinks related to increased stress, anxiety Repeat BP around noon Continue current med regimen Last 3 BP Readings: Date: BP: 12/24/2023 164/97 12/21/2023 110/74 12/19/2023 128/77 Assessment & Plan (12/05/2023 1:37 PM EDT): Well-controlled today s/p dialysis Last 3 BP Readings: Date: BP: 12/05/2023 90/62 12/04/2023 164/102 12/03/2023 110/82 Assessment & Plan (11/07/2023 11:09 AM EDT): Elevated BP today, in setting of missed dialysis 11/05 d/t surgery Pt asymptomatic Pt to have dialysis 11/07 & suspect BP will normalize Last 3 BP Readings: Date: BP: 11/07/2023 155/91 11/05/2023 130/83 11/02/2023 124/85 Assessment & Plan (10/26/2023 12:26 PM EDT): Last 3 BP Readings: Date: BP: 10/26/2023 126/72 10/25/2023 134/88 10/19/2023 135/79 Lab Results Component Value Date NA 137 08/15/2023 K 4.5 08/15/2023 CHLORIDE 94 (L) 08/15/2023 CALCIUM 9.7 08/15/2023 BUN 47 (H) 08/15/2023 BUNCREAT 8 08/15/2023 EGFR 10 (L) 08/15/2023 CREATININE 6.09 (H) 08/15/2023 PROTEIN 7.7 08/15/2023 ALBUMIN 4.8 08/15/2023 GLOBULIN 2.9 08/15/2023 AGRATIO 1.7 08/15/2023 AST 19 08/15/2023 ALT 11 08/15/2023 ALKPHOS 240 (H) 08/15/2023 BILIRUBIN 0.5 08/15/2023 GLUCOSE 109 (H) 08/15/2023 BP well controlled on low dose amlodipine and increased metoprolol Continue with current regimen Will continue monitoring Assessment & Plan (10/19/2023 10:48 AM EDT): BP Readings from Last 4 Encounters: 10/19/23 135/79 10/18/23 (!) 173/88 10/17/23 (!) 178/94 10/16/23 (!) 132/90 BP elevated this week, missed dialysis, asymptomatic BP normotensive today Continue with current medication regimen; monitor closely Assessment & Plan (10/11/2023 11:36 AM EDT): Intermittently elevated Bps, asymptomatic, on amlodipine 7.5mg daily and hydralazine 100mg tid (bid on dialysis days) Elevated today s/p dialysis yesterday had ED visit 10/03 for syncope in setting of low BP s/p dialysis with suspicion too much fluid was removed, so caution overcorrecting BP Readings from Last 4 Encounters: 10/10/23 118/80 10/09/23 (!) 150/100 10/08/23 137/81 10/05/23 131/75 - if elevated Bps persist consider increasing amlodipine to 10mg, pt agreeable Assessment & Plan (10/11/2023 10:46 AM EDT): Elevated, though hadn't taken BP meds yet today Repeat later during clinic Last 3 BP Readings: Date: BP: 10/11/2023 150/99[Will continue to monitor.[ 10/10/2023 118/80[Manual[ 10/09/2023 150/100[Manual, will continue to monitor.[ Assessment & Plan (10/05/2023 1:18 PM EDT): Last 3 BP Readings: Date: BP: 10/05/2023 131/75 10/04/2023 154/84 10/03/2023 90/58 Lab Results Component Value Date NA 137 08/15/2023 K 4.5 08/15/2023 CHLORIDE 94 (L) 08/15/2023 CALCIUM 9.7 08/15/2023 BUN 47 (H) 08/15/2023 BUNCREAT 8 08/15/2023 EGFR 10 (L) 08/15/2023 CREATININE 6.09 (H) 08/15/2023 PROTEIN 7.7 08/15/2023 ALBUMIN 4.8 08/15/2023 GLOBULIN 2.9 08/15/2023 AGRATIO 1.7 08/15/2023 AST 19 08/15/2023 ALT 11 08/15/2023 ALKPHOS 240 (H) 08/15/2023 BILIRUBIN 0.5 08/15/2023 GLUCOSE 109 (H) 08/15/2023 BP within range today Continue with current regimen Assessment & Plan (09/28/2023 11:05 AM EDT): Last 3 BP Readings: Date: BP: 09/26/2023 105/63 09/25/2023 126/72 09/24/2023 145/86 Lab Results Component Value Date NA 137 08/15/2023 K 4.5 08/15/2023 CHLORIDE 94 (L) 08/15/2023 CALCIUM 9.7 08/15/2023 BUN 47 (H) 08/15/2023 BUNCREAT 8 08/15/2023 EGFR 10 (L) 08/15/2023 CREATININE 6.09 (H) 08/15/2023 PROTEIN 7.7 08/15/2023 ALBUMIN 4.8 08/15/2023 GLOBULIN 2.9 08/15/2023 AGRATIO 1.7 08/15/2023 AST 19 08/15/2023 ALT 11 08/15/2023 ALKPHOS 240 (H) 08/15/2023 BILIRUBIN 0.5 08/15/2023 GLUCOSE 109 (H) 08/15/2023 BP well controlled Continue with current regimen Reassess at next in clinic appt Assessment & Plan (09/21/2023 12:26 PM EDT): Last 3 BP Readings: Date: BP: 09/21/2023 108/65 09/20/2023 149/83 09/19/2023 120/82 Lab Results Component Value Date NA 137 08/15/2023 K 4.5 08/15/2023 CHLORIDE 94 (L) 08/15/2023 CALCIUM 9.7 08/15/2023 BUN 47 (H) 08/15/2023 BUNCREAT 8 08/15/2023 EGFR 10 (L) 08/15/2023 CREATININE 6.09 (H) 08/15/2023 PROTEIN 7.7 08/15/2023 ALBUMIN 4.8 08/15/2023 GLOBULIN 2.9 08/15/2023 AGRATIO 1.7 08/15/2023 AST 19 08/15/2023 ALT 11 08/15/2023 ALKPHOS 240 (H) 08/15/2023 BILIRUBIN 0.5 08/15/2023 GLUCOSE 109 (H) 08/15/2023 BP stable today Continue with current regimen Continue monitoring Assessment & Plan (09/11/2023 9:30 AM EDT): BP elevated today Normal yesterday Will be receiving dialysis today Assessment & Plan (08/10/2023 12:13 PM EDT): Last 3 BP Readings: Date: BP: 08/10/2023 136/84 08/09/2023 152/96 08/08/2023 160/100 Lab Results Component Value Date NA 139 08/07/2022 K 4.2 08/07/2022 CHLORIDE 97 (L) 08/07/2022 CALCIUM 9.6 08/07/2022 BUN 44 (H) 08/07/2022 BUNCREAT 17 11/13/2018 EGFR 10 (L) 08/07/2022 CREATININE 6.18 (H) 08/07/2022 PROTEIN 8.0 07/11/2023 ALBUMIN 4.7 07/11/2023 GLOBULIN 3.3 07/11/2023 AGRATIO 1.4 07/11/2023 AST 15 07/11/2023 ALT 10 07/11/2023 ALKPHOS 239 (H) 07/11/2023 BILIRUBIN 0.3 07/11/2023 GLUCOSE 96 08/07/2022 BP well controlled Continue with current regimen Continue monitoring Assessment & Plan (08/09/2023 1:31 PM EDT): BP still above goal May be d/t resolving pneumonia Continue hydralazine, metoprolol, amlodipine Continue dialysis T Th Sat F/u with renal to schedule fistula surgery Assessment & Plan (08/08/2023 4:18 PM EDT): BP elevated today While hospitalized, taking 25mg TID of hydralazine At [facility], has been on 100mg TID for past several months Will continue on 100mg TID Assessment & Plan (08/01/2023 6:36 PM EDT): AM BP significantly elevated though asymptomatic MA to recheck shortly after pt takes morning meds Assessment & Plan (07/24/2023 2:42 PM EDT): BP initially very elevated Improved with sitting Has dialysis later this afternoon, discussed importance of attending Assessment & Plan (07/23/2023 12:40 PM EDT): BP elevated today, generally labile, denies symptoms Continue current med regimen Monitor Last 3 BP Readings: Date: BP: 07/23/2023 146/85 07/20/2023 97/64 07/19/2023 158/90 Assessment & Plan (07/17/2023 1:18 PM EDT): BP elevated today but does sometimes drop low during dialysis Has dialysis later today Will continue to monitor Assessment & Plan (07/13/2023 11:35 AM EDT): Last 3 BP Readings: Date: BP: 07/13/2023 152/87 07/12/2023 123/74 07/11/2023 127/80 Lab Results Component Value Date NA 139 08/07/2022 K 4.2 08/07/2022 CHLORIDE 97 (L) 08/07/2022 CALCIUM 9.6 08/07/2022 BUN 44 (H) 08/07/2022 BUNCREAT 17 11/13/2018 EGFR 10 (L) 08/07/2022 CREATININE 6.18 (H) 08/07/2022 PROTEIN 8.0 07/11/2023 ALBUMIN 4.7 07/11/2023 GLOBULIN 3.3 07/11/2023 AGRATIO 1.4 07/11/2023 AST 15 07/11/2023 ALT 10 07/11/2023 ALKPHOS 239 (H) 07/11/2023 BILIRUBIN 0.3 07/11/2023 GLUCOSE 96 08/07/2022 BP elevated but stable No red flags on exam Changes to medication regimen: none Continue to monitor Assessment & Plan (07/10/2023 12:03 PM EDT): BP elevated today but often low with dialysis Encouraged ongoing follow-up with nephrology for consideration of med adjustment Assessment & Plan (07/06/2023 12:06 PM EDT): BP at goal today Continue med regimen Monitor Assessment & Plan (06/27/2023 1:54 PM EDT): BP liable. High this AM 170/100 then 1 hour later 100/63 Pt denies H/A cp blurred vision, dizziness weakness. On hydralazine TID Assessment & Plan (06/19/2023 9:32 AM EDT): BP elevated today Likely in setting of needing dialysis, stress related to his dad Will continue to monitor, will not change meds at this time given hx of low BP after dialysis Assessment & Plan (06/12/2023 3:19 PM EDT): BP elevated Will be having dialysis this afternoon Nursing discussed changing how hydralazine is taking, taking afternoon dose earlier in day Pt open to this F/u if still elevated Assessment & Plan (06/11/2023 2:38 PM EDT): Pt states bp continues to fluctuate, but that it usually comes back to an acceptable range. States they 'took out less fluid' at dialysis on Sunday, thinks maybe this is helping keep his bp down. Going to the doctor with his father tomorrow, thinks that stress might bring bp up again. Assessment & Plan (06/08/2023 10:39 AM EDT): Labile BP, asymptomatic Recent elevations may be 2/2 increased stress and anxiety Continue current meds Monitor Last 3 BP Readings: Date: BP: 06/07/2023 117/68 06/06/2023 150/85 06/05/2023 167/98 Assessment & Plan (06/04/2023 7:50 PM EDT): BP well-controlled currently Continue current med regimen Monitor Last 3 BP Readings: Date: BP: 06/04/2023 130/74 06/01/2023 129/66 05/31/2023 118/75 Assessment & Plan (06/01/2023 12:03 PM EST): Last 3 BP Readings: Date: BP: 06/01/2023 129/66 05/31/2023 118/75 05/29/2023 131/77 BP stable during visit Continue with current regimen Assessment & Plan (05/30/2023 6:48 PM EST): Labile BP without symptoms Pt spoke with his corporate services manager who told him he was within expected range, not concerned, no changes to BP meds, only recommendation was to lose 5 lbs if able Assessment & Plan (05/29/2023 11:27 AM EST): BP has been up and down Well controlled today Will speak to corporate services manager george at dialysis about any need for regimen adjustment Chest pain 05/01/2023 Overview (05/01/2023): Hospitalized 04/24-04/26 for chest pain Normal echo, stress test Rec to be on aspirin, statin. Pt open to starting these Assessment & Plan (05/11/2023 1:46 PM EST): Doing well, no longer having CP VSS, l/s CTA Continue montioring, continue with current regimen Assessment & Plan (05/08/2023 10:54 AM EST): Reports no further episodes of chest pain Continue on aspirin and statin Assessment & Plan (05/07/2023 8:56 PM EST): No recurrent symptoms Stress test, ECHO, EKG, trops were normal during hospital admission Cards f/u 1-2 weeks post discharge ordered in hospital note, appt made ? Assessment & Plan (05/03/2023 2:36 PM EST): No recurrent symptoms Stress test, ECHO, EKG, trops were normal during hospital admission Cards f/u 1-2 weeks post discharge ordered in note, appt made ? Assessment & Plan (05/01/2023 11:04 AM EST): Returning from hospitalization for chest pain, full resolution of symptoms Stress test, EKG, troponin, ECHO all normal Discharge note appears to be incomplete, will check again later regarding diagnosis F/u with cardiology 8-14 days, unclear if this appointment was made by the hospital staff, will follw up Assessment & Plan (05/01/2023 10:30 AM EST): Unclear diagnosis: some notes from hospitalization indicate NSTEMI, others indicate hypertension related Overall resolved now Patient should be on statin and aspirin, not sent from hospital Discussed with patient and he is open to starting these Will sent to pharmacy Rec following up on hospital discharge summary as not yet completed as of today Anxiety 04/06/2023 Assessment & Plan (12/08/2024 11:02 AM EDT): Psychological condition is unchanged Plan: Continue same medications and dosages Supportive therapy. Psychological condition will be reassessed at the next regular appointment. Assessment & Plan (11/28/2024 8:56 AM EDT): Psychological condition is improving with treatment Plan: Continue same medications and dosages Supportive therapy. Psychological condition will be reassessed at the next regular appointment. Assessment & Plan (11/17/2024 3:47 PM EDT): Psychological condition is increased anxiety d/t discharge from [facility] soon Plan: Increase hydroxyzine to 50mg three times per day as needed for anxiety Supportive therapy. Psychological condition will be reassessed at the next regular appointment. Assessment & Plan (11/10/2024 1:58 PM EDT): Psychological condition is under reasonable control Plan: Continue same medications and dosages Supportive therapy. Psychological condition will be reassessed at the next regular appointment. Assessment & Plan (10/27/2024 3:49 PM EDT): Psychological condition is under reasonable control Plan: Continue same medications and dosages Supportive therapy. Psychological condition will be reassessed at the next regular appointment. Assessment & Plan (10/13/2024 3:34 PM EDT): Psychological condition is under reasonable control Plan: Continue same medications and dosages Supportive therapy. Psychological condition will be reassessed at the next regular appointment. Assessment & Plan (10/03/2024 4:04 PM EDT): Psychological condition is under reasonable control Plan: Continue same medications and dosages Supportive therapy. Psychological condition will be reassessed at the next regular appointment. Assessment & Plan (09/05/2024 10:39 AM EDT): Psychological condition is under reasonable control Plan: Continue same medications and dosages Supportive therapy. Psychological condition will be reassessed at the next regular appointment. Assessment & Plan (08/29/2024 10:15 AM EDT): Psychological condition is under reasonable control Plan: Continue same medications and dosages Supportive therapy. Psychological condition will be reassessed at the next regular appointment. Assessment & Plan (08/25/2024 4:25 PM EDT): Psychological condition is under reasonable control Plan: Continue same medications and dosages Supportive therapy. Psychological condition will be reassessed at the next regular appointment. Assessment & Plan (08/20/2024 10:18 AM EDT): Assessment: KAILEY Current Risk Assessment (if positive complete C-SSRS): None - no suicidal ideation. Plan details: Type of therapy: ind therapy Frequency: biweekly Expected Duration in months (range): 10/24/24 Specific comments (if any): Assessment & Plan (08/08/2024 12:48 PM EDT): Psychological condition is under reasonable control Plan: Continue same medications and dosages Supportive therapy. Psychological condition will be reassessed at the next regular appointment. Assessment & Plan (07/25/2024 1:04 PM EDT): Psychological condition is under reasonable control Plan: Continue same medications and dosages Supportive therapy. Psychological condition will be reassessed at the next regular appointment. Assessment & Plan (07/18/2024 11:01 AM EDT): Psychological condition is under reasonable control Plan: Continue same medications and dosages Supportive therapy. Psychological condition will be reassessed at the next regular appointment. Assessment & Plan (06/30/2024 10:46 AM EDT): Psychological condition is under reasonable control Plan: Continue same medications and dosages Supportive therapy. Psychological condition will be reassessed at the next regular appointment. Assessment & Plan (06/27/2024 12:23 PM EDT): Psychological condition is under reasonable control Plan: Continue same medications and dosages Supportive therapy. Psychological condition will be reassessed at the next regular appointment. Assessment & Plan (06/20/2024 10:48 AM EDT): Psychological condition is under reasonable control Plan: Continue same medications and dosages Supportive therapy. Psychological condition will be reassessed at the next regular appointment. Assessment & Plan (06/16/2024 12:34 PM EDT): Psychological condition is under reasonable control Plan: Continue same medications and dosages Supportive therapy. Referral placed for stress management group therapy, Psychological condition will be reassessed at the next regular appointment. Assessment & Plan (06/06/2024 12:01 PM EDT): Psychological condition is under reasonable control Plan: Continue same medications and dosages Supportive therapy. Referral placed for stress management group therapy, Rescheduled individual therapy intake to 06/06 at 1pm, patient had to miss intake appointment this week for dialysis. Strongly encouraged patient to attend his therapy intake appointment today Psychological condition will be reassessed at the next regular appointment. Assessment & Plan (05/30/2024 12:05 PM EST): Psychological condition is under reasonable control Plan: Continue same medications and dosages Supportive therapy. Referral placed for stress management group therapy, Rescheduled individual therapy intake to 3 at 1pm, patient had to miss intake appointment this week for dialysis Psychological condition will be reassessed at the next regular appointment. Assessment & Plan (05/23/2024 9:49 AM EST): Psychological condition is under reasonable control Plan: Continue same medications and dosages Supportive therapy. Referral placed for stress management group therapy, Rescheduled individual therapy intake to 3 at 1pm, patient had to miss intake appointment this week for dialysis Psychological condition will be reassessed at the next regular appointment. Assessment & Plan (05/16/2024 1:52 PM EST): Psychological condition is under reasonable control Plan: Continue same medications and dosages Supportive therapy. Referral placed for stress management group therapy, Rescheduled individual therapy intake to 06/06 at 1pm, patient had to miss intake appointment this week for dialysis Psychological condition will be reassessed at the next regular appointment. Assessment & Plan (05/11/2024 2:26 PM EST): Psychological condition is slight improvement with increase of hydroxyzine dose 2 weeks ago Plan: Continue same medications and dosages Supportive therapy. Referral placed for stress management group therapy Psychological condition will be reassessed at the next regular appointment. Assessment & Plan (05/08/2024 12:09 PM EST): Improvement with income issues resolving 05/09 psychopharm 05/14 intake Encouraged grief groups Assessment & Plan (04/08/2024 4:12 PM EST): Stress level very high iso family member's health issue and finances Continue current med regimen Has psychopharm appt today Encouraged group meeting on Sunday Assessment & Plan (04/04/2024 1:59 PM EST): Psychological condition is unchanged Plan: Increase prn hydroxyzine to 50mg twice daily as needed for anxiety. Supportive therapy. Referral placed for stress management group therapy Psychological condition will be reassessed at the next regular appointment. Assessment & Plan (03/28/2024 2:02 PM EST): Psychological condition is worsening Plan: Increase prn hydroxyzine to 25mg three times per day as needed for anxiety. Supportive therapy Psychological condition will be reassessed at the next regular appointment. Assessment & Plan (01/07/2024 5:52 PM EDT): A) Anxiety remains high. P) Increase AM hydroxyzine dose, can keep remaining doses as PRN. Assessment & Plan (01/01/2024 11:56 AM EDT): Sub-optimal control Starting scheduled AM hydroxyzine + PRN dosing today Follows with Ketan Hooper Assessment & Plan (12/26/2023 8:15 AM EDT): Couldn't sleep well last night dt pending housing decision today. Follows up w Ketan Verde on Mondays. Takes PRN hydroxyzine w +effect. Assessment & Plan (11/27/2023 9:45 AM EDT): Patient explained they would like to talk to their provider, Ketan Verde, about their hydroxyzine for their anxiety. Mentioned they were having more symptoms of anxiety because they feeling more stressed about having to find a place to live, since they most likely will be discharge from the [facility] soon when medically cleared. Stated that were taking their hydroxyzine at least once a day in the morning because they feel the most anxious in the morning, so they wanted to see about increasing their frequency possibly. Notified them that this RN can reach out to their provider about their concerns to see what they say. Also notified the patient that their provider most likely is not available at [facility] this week so they might have to wait until next week to see them in person. Assessment & Plan (10/19/2023 10:46 AM EDT): Worsening anxiety, feeling overwhelmed with father's mental health and own mental and physical health Encouraged to speak to therapist; declines at this time Does have follow up with LYSSA Aceves next week Continue with current regiimen Increased dose of hydroxyzine from 10mg to 25mg TID PRN anxiety; thankful for this Encouraged to follow up with staff if any add'l concerns, worsening depression, anxiety Assessment & Plan (10/18/2023 10:43 AM EDT): Worse recently in setting of father's psychiatric struggles Discussed with patient that he does not need to fix all of his father's issues on his own. Reviewed supports such as available wellness check via local trauma- informed police unit to check on his father and assess status and connect with further supports Continue current med regimen F/u with psychopharm as schedueld, encouraged to speak with therapist Assessment & Plan (06/12/2023 3:18 PM EDT): Worsened in setting of dad's medical condition but overall feels he has enough support Considering housing options with dad - thinks this may help with both anxiety and substance use Continue current treatment, follow-up Assessment & Plan (06/11/2023 2:42 PM EDT): Pt inquired about melatonin, thought he has asked provider for it but it was not in his evening meds. Informed pt it was added as a prn, it is in his drawer but not his box, needs to ask staff for it. Pt verbalized undersatnding. Assessment & Plan (06/06/2023 5:33 PM EDT): Reduced anxiety after locating father Planning to visit him today Continue current med regimen F/u with Ketan Verde APRN next week Assessment & Plan (06/01/2023 12:01 PM EST): Increased anxiety 2/2 to father's current whereabouts In contact with [facility] and calling hosp Continue with current medication regimen Follow up with LYSSA GASCA next week Assessment & Plan (05/25/2023 12:42 PM EST): Psychological condition is unchanged Plan: per patient request Increase zyprexa dose to 5mg in am and 10mg at night to decrease depressive symptoms. Discussed this plan with patient's permanent psychopharm provider, Ketan Verde who is in agreement with plan and will see patient on Sunday. Continue rest of medications at the same doses. Psychological condition will be reassessed at the next regular appointment. Assessment & Plan (04/06/2023 10:52 AM EST): Psychological condition is improving with treatment Plan: per patient request change zyprex dose to 5mg at 8am and 5mg at 4pm daily. Increase hydoxyzine 10mg to three times per day as needed for breakthrough anxiety. Continue rest of medications at the same doses. Psychological condition will be reassessed at the next regular appointment. Cocaine use 04/03/2023 Overview (06/06/2024): 06/06/24- pt reports use of cocaine for the past few years as a result of his GF who uses both cocaine and alcohol. His last use was at the end of mar and believes he will remain clean while living at the [facility] for fear of going back to the [place] [facility]. He is at risk of using as he plans on returning to baseline use of alcohol and drugs if he gets his own apt. Assessment & Plan (12/08/2024 11:02 AM EDT): A: Patient denies recent cocaine use. Denies cravings to use cocaine. P: Use CO and positive reinforcement to encourage harm reduction use of cocaine and or sobriety. UDS at next in person appointment. Assessment & Plan (11/28/2024 8:56 AM EDT): A: Patient denies recent cocaine use. Denies cravings to use cocaine. Most recent UDS quick cup aligns with patient report P: Use CO and positive reinforcement to encourage harm reduction use of cocaine and or sobriety. Assessment & Plan (11/17/2024 3:47 PM EDT): A: Patient denies recent cocaine use. Denies cravings to use cocaine. Most recent UDS quick cup aligns with patient report P: Use CO and positive reinforcement to encourage harm reduction use of cocaine and or sobriety. Assessment & Plan (10/27/2024 3:50 PM EDT): A: Patient denies recent cocaine use. Denies cravings to use cocaine. Most recent UDS quick cup aligns with patient report P: Use CO and positive reinforcement to encourage harm reduction use of cocaine and or sobriety. Assessment & Plan (10/13/2024 3:34 PM EDT): A: Patient denies recent cocaine use. Denies cravings to use cocaine. Most recent UDS quick cup aligns with patient report P: Use CO and positive reinforcement to encourage harm reduction use of cocaine and or sobriety. Assessment & Plan (10/03/2024 4:05 PM EDT): A: Patient denies recent cocaine use. Denies cravings to use cocaine. Most recent UDS quick cup aligns with patient report P: Use CO and positive reinforcement to encourage harm reduction use of cocaine and or sobriety. Assessment & Plan (09/05/2024 10:39 AM EDT): A: Patient denies recent cocaine use. Denies cravings to use cocaine. Most recent UDS quick cup aligns with patient report P: Use CO and positive reinforcement to encourage harm reduction use of cocaine and or sobriety. Assessment & Plan (08/29/2024 10:15 AM EDT): A: Patient denies recent cocaine use. Denies cravings to use cocaine P: Use CO and positive reinforcement to encourage harm reduction use of cocaine and or sobriety. Assessment & Plan (08/08/2024 12:49 PM EDT): A: Patient denies recent cocaine use. Denies cravings to use cocaine P: Use CO and positive reinforcement to encourage harm reduction use of cocaine and or sobriety. Assessment & Plan (07/21/2024 12:04 PM EDT): Denies recent use Denies cravings 07/18 UDS appropriate Assessment & Plan (07/18/2024 11:01 AM EDT): A: Patient denies recent cocaine use. Denies cravings to use cocaine P: Use CO and positive reinforcement to encourage harm reduction use of cocaine and or sobriety. Assessment & Plan (06/30/2024 10:46 AM EDT): A: Patient denies recent cocaine use. Denies cravings to use cocaine P: Use CO and positive reinforcement to encourage harm reduction use of cocaine and or sobriety. Assessment & Plan (06/27/2024 12:23 PM EDT): A: Patient denies recent cocaine use. Denies cravings to use cocaine P: Use CO and positive reinforcement to encourage harm reduction use of cocaine and or sobriety. Assessment & Plan (06/20/2024 10:48 AM EDT): A: Patient denies recent cocaine use. Denies cravings to use cocaine P: Use CO and positive reinforcement to encourage harm reduction use of cocaine and or sobriety. Assessment & Plan (06/16/2024 12:34 PM EDT): A: Patient denies recent cocaine use. Denies cravings to use cocaine P: Use CO and positive reinforcement to encourage harm reduction use of cocaine and or sobriety. Assessment & Plan (06/06/2024 1:59 PM EDT): Assessment: Cocaine use disorder. Current Risk Assessment (if positive complete C-SSRS): None - no suicidal ideation. He does think about not being alive and the pain to end but has no plan and continues to want to live. Plan details: Type of therapy: ind therapy Frequency: weekly or biweekly Expected Duration in months (range): 08/24/24 Specific comments (if any): Assessment & Plan (06/06/2024 12:01 PM EDT): A: Patient denies recent cocaine use. Denies cravings to use cocaine P: Use CO and positive reinforcement to encourage harm reduction use of cocaine and or sobriety. Assessment & Plan (06/02/2024 12:22 PM EDT): Denies recent use Denies cravings Weekly UDS have been appropriate Continue CO Assessment & Plan (05/30/2024 12:05 PM EST): A: Patient denies recent cocaine use. Denies cravings to use cocaine P: Use CO and positive reinforcement to encourage harm reduction use of cocaine and or sobriety. Assessment & Plan (05/27/2024 11:45 AM EST): Repeat UDS today Denies cravings Assessment & Plan (05/23/2024 9:50 AM EST): A: Patient denies recent cocaine use. Denies cravings to use cocaine P: Use CO and positive reinforcement to encourage harm reduction use of cocaine and or sobriety. Assessment & Plan (05/07/2024 10:35 AM EST): Due for weekly UDS today Assessment & Plan (05/06/2024 10:00 AM EST): 2/ UDS (-) all Repeat UDS this week, high risk due to multiple triggers,endorses cravings, patient aware and in agreement with plan Assessment & Plan (04/30/2024 3:07 PM EST): UDS - negative for any substances Assessment & Plan (03/14/2024 2:34 PM EST): UDS (+) cocaine on admission Quant > 20,000 ng/ml benzuylecgnine Repeat UDS 03/17 expect clearance/downtrending level Assessment & Plan (2024 11:16 AM EDT): 12/30 UDS negative Denies cravings Monitor Assessment & Plan (01/01/2024 11:58 AM EDT): 12/30 UDS negative Monitor Assessment & Plan (12/05/2023 1:34 PM EDT): 12/03 UDS neg Assessment & Plan (11/12/2023 3:38 PM EDT): UDS negative today, sent out Denies cravings Assessment & Plan (11/07/2023 11:05 AM EDT): 11/04 cocaine negative Denies cocaine cravings, uses socially Assessment & Plan (11/01/2023 11:13 AM EDT): Recent relapse Denies cravings 10/24 UDS + cocaine 8 UDS + cocaine, quant pending Took around a week for cocaine to test negative during previous admission, monitor that quant is downtrending Assessment & Plan (10/30/2023 2:39 PM EDT): Denies recent use Denies cravings 10/24 UDS + cocaine, repeat UDS today Assessment & Plan (10/30/2023 9:39 AM EDT): Denies recent use Denies cravings UDS 10/24 + cocaine, repeat 10/27 quick cup: + cocaine, confirmatory labs pending Assessment & Plan (10/25/2023 4:11 PM EDT): UDS + cocaine today Patient agrees to restrictions including no leaving [facility] facility accept for medical appointments, regular urine screens until further notice Assessment & Plan (10/15/2023 10:51 AM EDT): Cocaine metabolite levels trending down Repeat UDS with quant today Monitor Assessment & Plan (10/12/2023 11:40 AM EDT): 10/10 UDS + cocaine, sent out for confirmation and quant Reviewed expectation that quant will be decreasing Pt agrees to regular drug testing Repeat UDS 10/14 Assessment & Plan (10/11/2023 11:32 AM EDT): 10/07 UDS + cocaine Denies use since last dsu or cravings, reports irregular use only 2x/year, thus med management not indicated at this time Discussed impacts of cocaine on BP - fu rpt dsu, next due 10/10 Assessment & Plan (10/09/2023 11:22 AM EDT): 10/07 UDS + cocaine Pt reports use last week, denies current use Warning given Repeat UDS 10/10 or 10/11, patient understands expectation of negative cocaine result, otherwise will need to discuss with [facility] team about potential discharge or other restrictions Encouraged connecting with Laura, other sports coach or instructor, patient does not feel ready but will reach out later Assessment & Plan (10/08/2023 10:28 AM EDT): Pt agreeable to regular UDS as condition to stay at [facility] due to relapse Will repeat today Encouraged use of recovery supports Assessment & Plan (10/03/2023 6:16 PM EDT): Applauded on UDS - cocaine Encouraged to follow up with recovery supports Assessment & Plan (09/28/2023 12:03 PM EDT): +UDS Plan to repeat next week Message sent to other sports coach or instructor for follow up; patient amenable Assessment & Plan (09/26/2023 11:12 AM EDT): Noted on 09/23 UDS Admits to recent use Repeat UDS 09/30 with expectation of - result Assessment & Plan (09/25/2023 11:43 AM EDT): Notes on random UDS Pt has been using cocaine for past three weeks, about twice a week when with girlfriend Feels regretful, states I screwed up Plans to stop using Encouraged to reach out to his other sports coach or instructor for further support [facility] team to determine further restrictions for infraction Assessment & Plan (04/03/2023 12:17 PM EST): A) Primarily would use cocaine in order to drink more, unclear whether pt meets criteria for independent cocaine use disorder. P) Will assess further for cocaine use disorder. Food insecurity 04/07/2022 Secondary hyperparathyroidism of renal origin 08/17/2022 Overview (08/16/2023): Per uptodate, for patients on dialysis: It is reasonable to measure phosphate and calcium levels approximately every one to three months and PTH levels every three to six months ?Serum levels of phosphate should be maintained between 3.5 and 5.5 mg/dL (1.13 to 1.78 mmol/L). ?Serum levels of corrected total calcium should be maintained <9.5 mg/dL (<2.37 mmol/L). ?Parathyroid hormone (PTH) values should be maintained less than two to nine times the upper limit for the PTH assay Assessment & Plan (08/17/2022 7:33 PM EDT): Stable F/b nephrology Dialysis 3 x/wk Perforated appendix 10/14/2021 Overview (10/19/2021): 10/19/21 - recently finished 8 day Augmentin course, 11/10 surgery f/u appt 09/2021 - diagnosed with stable perforated appendix at [facility], discharged with abx and surgery f/u Assessment & Plan (03/13/2022 2:58 PM EST): Need to reschedule EGD + colonoscopy Assessment & Plan (03/10/2022 2:14 PM EST): [facility] team working on rescheduling EGD / colonoscopy Assessment & Plan (03/09/2022 1:17 PM EST): Needs to reschedule colonoscopy / EGD Assessment & Plan (11/18/2021 11:57 AM EDT): Pt to call gen surg office to schedule colonoscopy Assessment & Plan (11/16/2021 3:04 PM EDT): Colonoscopy pending scheduling Assessment & Plan (11/04/2021 11:49 AM EDT): No abd sxs Stable Appt with GI surgeon next week Assessment & Plan (11/03/2021 3:23 PM EDT): Stable, asx 11/11 nephro 2nd opinion appt Assessment & Plan (10/31/2021 2:41 PM EDT): Stable, asymptomatic [ ] 11/10 general surgery f/u appt Assessment & Plan (10/28/2021 11:07 AM EDT): Stable, asymptomatic [ ] 11/10 general surgery f/u appt Assessment & Plan (10/27/2021 1:52 PM EDT): Stable, asx [ ] 11/10 general surgery f/u Assessment & Plan (10/24/2021 1:33 PM EDT): Stable, asx [ ] 11/10 general surgery f/u Assessment & Plan (10/21/2021 1:26 PM EDT): 11/10 surgery f/u appt Assessment & Plan (10/20/2021 1:44 PM EDT): 11/10 surgery f/u Assessment & Plan (10/19/2021 12:43 PM EDT): Karlie, asymptomatic abx done 11/10 surgery f/u appt Assessment & Plan (10/14/2021 12:04 PM EDT): Finished Augmentin course (3 days remaining) 11/10 general surgery f/u Lack of access to transportation (Z59.82) 2021 Assessment & Plan (07/02/2024 2:40 PM EDT): Patient with history of MDD experiencing grief due to father's passing, [facility] and would like to visit -will inform team to assist w/ arranging Assessment & Plan (08/17/2022 7:27 PM EDT): Karlie Has access to transport while staying at [facility] Assessment & Plan (07/13/2021 3:52 PM EDT): A: Needs referral to PT1. P: See orders. Cigarette nicotine dependence without complicati on 05/25/2021 Assessment & Plan (08/05/2024 2:37 PM EDT): 5 cigs / day Encouraged smoking cessation Assessment & Plan (05/27/2024 11:39 AM EST): 05/20 CT chest - unchanged lingula scarring, incidental finding 4 cm left-sided thyroid nodule Counseled smoking cessation Repeat LDCT in 12-24 months Assessment & Plan (05/21/2024 10:37 AM EST): CT lung screening completed 05/20 Assessment & Plan (08/28/2023 9:39 AM EDT): 4 cigs/day (takes one on each break) Declines additional treatments at this time Assessment & Plan (08/08/2023 4:11 PM EDT): Did not smoke while hospitalized, tends to smoke 3-4 cigs well at [facility] Declines patches but open to nicotine gum (sent from hospital) Assessment & Plan (04/03/2023 11:14 AM EST): Not discussed today, but noted to have nicotine patches on hospital discharge med list Rec discussing NRT further with patient Assessment & Plan (09/12/2022 10:04 AM EDT): Unchanged, at 4 cigs per day Continue to encourage cessation Assessment & Plan (07/18/2022 11:16 AM EDT): Precontemplative of cessation. P: Encouraged cessation; continue CO Assessment & Plan (11/22/2021 10:57 PM EDT): A: Contemplative of cessation. P: Encouraged cessation; continue CO Assessment & Plan (10/17/2021 1:27 PM EDT): Not interested in reduction/cessation at present Assessment & Plan (10/14/2021 9:31 AM EDT): Smoking 8 cigs/day Declines NRT Assessment & Plan (06/14/2021 1:32 PM EDT): Smoking 8 cigs/day Encouraged cessation, especially with imminent AVF surg and eventual dialsys Assessment & Plan (05/25/2021 8:14 AM EST): Continues to smoke about 4 cigarettes daily, not ready to quit. Know he can use nicotine gum as needed Benign prostatic hyperplasia with lower urinary tract symptoms 11/22/2020 Acute gastritis without bleeding 12/24/2019 Overview (12/24/2019): 11/13/19 EGD results show acute gastritis without bleeding, ulcer of esophagus without bleeding, and esophageal mucosal changes suspicious for long-segment Kruse's esophagus. Awaiting pathology results Assessment & Plan (01/15/2024 11:09 AM EDT): -esophageal mucosal changes suggestive of Kruse's esophagus, biopsied -3 cm hiatal hernia -erythematous mucosa of stomach, biopsied -normal duodenum Ok to resume PPI Awaiting pathology results Assessment & Plan (03/28/2022 11:38 AM EST): Weight and apppetite stable. Gastritis well controlled with PPI No red flags. Continue PPI EGD/Colonoscopy when ready Assessment & Plan (03/03/2022 2:34 PM EST): Needs to schedule EGD / colonoscopy Assessment & Plan (01/10/2022 12:00 PM EDT): Reminded of 2pm phone preop with GI for EGD today. Assessment & Plan (07/13/2021 10:48 AM EDT): A: Stable. Receiving care at [facility] where he is currently living. P: Continue care at [facility]. Assessment & Plan (06/11/2021 11:20 PM EDT): Increase in nausea off of PPI No symptoms indicative of bleed. 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 Assessment & Plan (03/14/2024 2:30 PM EST): Continue PPI Assessment & Plan (01/21/2024 11:21 AM EDT): Biopsies taken on 01/14/24 EGD Awaiting pathology results Assessment & Plan (01/17/2024 12:35 PM EDT): Biopsies taken on 01/14/24 EGD Awaiting pathology results Assessment & Plan (01/15/2024 11:10 AM EDT): Esophageal changes suggestive of Kruse's esophagus noted on 01/14/24 EGD Biopsies taken, awaiting pathology results Resume PPI Assessment & Plan (06/28/2023 10:59 AM EDT): Asymptomatic on high dose of pantoprazole Await endoscopy with GI 07/2023 Consider discussing decreasing PPI dose with GI if tolerated Assessment & Plan (05/15/2023 2:39 PM EST): Awaiting colonoscopy No further evidence of GI bleeding Assessment & Plan (05/03/2023 12:55 PM EST): States his GERD symptoms are well controlled. No dysphagia Following with GI Abd u/s yesterday reviewed and appears non-concerning, though it was indicated d/t cirrhosis which is not noted in the patient's chart. Continue BID PPI Assessment & Plan (05/01/2023 10:33 AM EST): Plan for endoscopy and colonoscopy, following with GI Assessment & Plan (04/30/2023 3:52 PM EST): 08/15 EGD/colo Assessment & Plan (04/03/2023 11:19 AM EST): Known hx of Kruse's Needs repeat EGD Per GI note from hospital discharge, pt to be on 40mg BID pantoprazole (per UTD, No supplemental dose or dosage adjustment necessary for patients on dialysis) Awaiting GI referral, placed previously Assessment & Plan (09/01/2022 10:10 AM EDT): Denies any sxs On daily PPI Plan to continue Assessment & Plan (10/17/2021 1:30 PM EDT): EGD due, ordered pending scheduling Assessment & Plan (07/13/2021 3:56 PM EDT): A: Stable, no current symptoms, taking PPI. P: Continue to monitor. Assessment & Plan (05/31/2021 10:10 PM EST): Pt has essentially stopped his PPI due to lack of symptoms and safety with respect to his CKD. May benefit from f/u with GI based on last EGD findings. Assessment & Plan (05/24/2021 10:07 PM EST): No complaint of acid reflux, dyphagia. Asymptomatic since stopping etoh x 26 days. He may take PPI PRN Other male erectile dysfunction 08/16/2018 Overview (08/16/2018): Likely multifactorial - BPH, medications Assessment & Plan (06/06/2019 1:36 PM EDT): Refill sildenafil Assessment & Plan (08/16/2018 4:53 PM EDT): A) Recent onset (past several months), likely multifactorial (BPH, meds). P) Sent rx for sildenafil. Reviewed side effects in detail including signs and symptoms of emergency, pt encouraged to call or make earlier appt with any questions or concerns. Hypertriglyceridemia 07/29/2018 Assessment & Plan (07/13/2021 3:51 PM EDT): A: No current hypertriglyceridemia. P: Due for labs 01/2022 Assessment & Plan (07/29/2018 9:52 AM EDT): Lipid abnormalities are newly identified. Plan: FYI sent to PCP, education regarding diet. . Other insomnia 02/04/2018 Overview (10/22/2024): 10/13/24: Here for follow up suspected MEAGAN. He has tried two home sleep tests and both times we didn't get sufficient data. He snores, sometimes wakes up choking/gasping. Girlfriend reports snoring and witnessed apneas. He denies morning headaches or daytime fatigue/sleepiness. [place] Sleepiness Scale: 4 of 24 07/09/24: comprehensive sleep medicine consultation. He has trouble sleeping. His girlfriend told him to come here as he is snoring and gasping. He wakes up suddenly. Also has RLS. Taking melatonin. BMI 25. ESS 4. Smokes 5-6 cig/day. Has hypertension on meds. ETOH induced Assessment & Plan (12/08/2024 11:05 AM EDT): A: unchangedI P: Continue same medications and dosages Review sleep hygiene Assessment & Plan (11/17/2024 3:48 PM EDT): A: Improving with treatment P: Continue same medications and dosages Review sleep hygiene Assessment & Plan (11/10/2024 1:58 PM EDT): A: Improving with treatment P: Continue same medications and dosages Review sleep hygiene Assessment & Plan (10/27/2024 3:50 PM EDT): A: Improving with treatment P: Continue same medications and dosages Review sleep hygiene Assessment & Plan (10/22/2024 3:43 PM EDT): Saw sleep medicine on 10/13 Recommended sleep study in the [facility] ([place]) - Sleep study 10/22-10/23 (overnight) Assessment & Plan (10/13/2024 3:47 PM EDT): A: Improving with treatment P: Continue same medications and dosages Review sleep hygiene Assessment & Plan (10/03/2024 4:05 PM EDT): A: Improving with treatment P: Continue same medications and dosages Review sleep hygiene Assessment & Plan (09/24/2024 3:14 PM EDT): Sleep has been improving, attributed to current rx of melatonin 9mg before bed. - Continue with melatonin dosage as prescribed Assessment & Plan (09/05/2024 10:41 AM EDT): A: Improving with treatment P: Continue same medications and dosages Review sleep hygiene Assessment & Plan (08/29/2024 10:18 AM EDT): A: trouble falling and staying asleep. P: ncrease melatonin to 9 mg nightly to increase quality and quantity of sleep. Continue rest of medications at the same doses. Assessment & Plan (03/02/2018 8:32 PM EST): Pt is being weaned off Mritazapine Pt to follow-up with psych; sooner PRN Assessment & Plan (02/26/2018 11:23 AM EST): Doing well on trazodone Use as directed and follow-up with psych and change/adjust if needed Follow-up PRN Assessment & Plan (02/04/2018 1:54 PM EST): Well controlled on trazodone. Refill sent Severe episode of recurrent major depressive disorder, without psychotic features 2018 Overview (06/06/2024): 06/06/24- pt scored 15 onPHQ with moderately high depression as result. He has had thoughts of being better off but no plan and acting on that plan. I will probably drink myself to someday he is at risk if he gets his own apt because he thinks the only thing keeping him from drinking is being [facility] the [facility]. 02/01/18: Started on Zyprexa-will see psych and will adjust med regimen if needed Assessment & Plan (12/08/2024 11:04 AM EDT): A: withdrawn. Relapsed on ETOH P: Continue same medications and dosages . Plan is if patient tolerates lamictal well will taper patient up to therapeutic dose of 100mg daily over the next several months. Supportive therapy Close monitoring for worsening of depressive symptoms over the next few months. Assessment & Plan (11/28/2024 9:49 AM EDT): Currently stable Had follow up with psychopharm today No changes to medication regimen Assessment & Plan (11/28/2024 8:56 AM EDT): A: Improving with treatment. Sleeping better. Mood improving. P: Continue same medications and dosages . Plan is if patient tolerates lamictal well will taper patient up to therapeutic dose of 100mg daily over the next several months. Supportive therapy Assessment & Plan (11/27/2024 11:51 AM EDT): Improving with treatment Continue current regimen Will continue with Debra Sullivan for psychopharm after discharge Assessment & Plan (11/20/2024 9:04 AM EDT): Improving with treatment Continue current meds F/u with psychopharm as scheduled Assessment & Plan (11/17/2024 3:47 PM EDT): A: Improving with treatment. Sleeping better. Mood improving. P: Continue same medications and dosages . Plan is if patient tolerates lamictal well will taper patient up to therapeutic dose of 100mg daily over the next several months. Supportive therapy Assessment & Plan (11/17/2024 11:57 AM EDT): Improving with treatment Continue current regimen F/u with psychopharm as scheduled Assessment & Plan (11/10/2024 1:58 PM EDT): A: Improving with treatment. Sleeping better. Mood improving. P: Continue same medications and dosages . Plan is if patient tolerates lamictal well will taper patient up to therapeutic dose of 100mg daily over the next several months. Supportive therapy Assessment & Plan (11/07/2024 10:32 AM EDT): Improving with treatment, reasonably well controlled at present Continue current med regimen F/u with psychopharm as scheduled Assessment & Plan (11/05/2024 11:52 AM EDT): Improving with treatment Mood, appetite, sleep good per pt Continue current med regimen F/u with psychopharm as scheduled Assessment & Plan (11/03/2024 1:19 PM EDT): Improving with treatment Mood, appetite, sleep good per pt Continue current meds F/u with psychopharm as scheduled Assessment & Plan (10/27/2024 3:50 PM EDT): A: Improving with treatment. Sleeping better. Mood improving. P: Continue same medications and dosages . Plan is if patient tolerates lamictal well will taper patient up to therapeutic dose of 100mg daily over the next several months. Supportive therapy Assessment & Plan (10/27/2024 11:05 AM EDT): Reasonably well controlled, improving with treatment Continue current meds F/u with psychopharm as scheduled Assessment & Plan (10/16/2024 9:30 AM EDT): Improving with treatment Appetite intact Sleeping well Mood significantly improved Continue current regimen F/u with psychopharm as scheduled Assessment & Plan (10/13/2024 3:47 PM EDT): A: Improving with treatment. Sleeping better. Mood improving. P: Continue same medications and dosages . Plan is if patient tolerates lamictal well will taper patient up to therapeutic dose of 100mg daily over the next several months. Supportive therapy Assessment & Plan (10/13/2024 2:09 PM EDT): Mood is stable Continue current regimen F/u with psychopharm as scheduled Assessment & Plan (10/03/2024 4:05 PM EDT): A: Improving with treatment. Sleeping better. Mood improving. P: Continue same medications and dosages . Plan is if patient tolerates lamictal well will taper patient up to therapeutic dose of 100mg daily over the next several months. Supportive therapy Assessment & Plan (09/29/2024 1:10 PM EDT): Mood improving with treatment Sleeping well Continue current regimen F/u with psychopharm as scheduled Assessment & Plan (09/08/2024 10:04 AM EDT): Mood and sleep improving Continue current meds F/u with psychopharm today Assessment & Plan (09/05/2024 10:40 AM EDT): A: Improving with treatment. Sleeping better. Mood improving. P: Continue same medications and dosages . Plan is if patient tolerates lamictal well will taper patient up to therapeutic dose of 100mg daily over the next several months. Supportive therapy Assessment & Plan (09/03/2024 10:36 AM EDT): Significant improvement in mood Continue current med regimen F/u with psychopharm as scheduled Assessment & Plan (09/01/2024 1:29 PM EDT): Reports significant mood improvement though very early for lamictal effect Continue current med regimen F/u with psychopharm as scheduled Assessment & Plan (08/29/2024 10:16 AM EDT): A: unchanged, poor sleep P: Increase melatonin to 9 mg nightly to increase quality and quantity of sleep. Continue rest of medications at the same doses. Plan is if patient tolerates lamictal well will taper patient up to therapeutic dose of 100mg daily over the next several months. Supportive therapy Assessment & Plan (08/27/2024 1:57 PM EDT): Endorses uncontrolled insomnia, found to have melatonin 12mg tabs which he states he's been taking with 6mg prsecribed Assessment & Plan (08/26/2024 11:46 AM EDT): Worsened mood, decreased appetite On max dose of sertraline and rexulti Starting lamictal F/u with psychopharm as scheduled Assessment & Plan (08/25/2024 4:27 PM EDT): A: worsening, decreased motivation, appetite, interest P: Patient currently on max doses of sertraline and rexulti. Will use augmentation strategy and start lamictal 25mg daily for mood stabilization. Plan is if patient tolerates lamictal well will taper patient up to therapeutic dose of 100mg daily over the next several months. Supportive therapy Assessment & Plan (08/20/2024 11:23 AM EDT): Inquires about increasing rexulti, endorses lack of enjoyment, worse recently Denies SI/HI Message sent to psychopharm team, note usual clinician out on vacation, covering clinicians messaged Assessment & Plan (08/08/2024 12:49 PM EDT): A: under reasonable control P: Continue same medications and dosages. Supportive therapy Assessment & Plan (08/06/2024 12:21 PM EDT): Stable mood Assessment & Plan (08/05/2024 2:37 PM EDT): Mood improving Continue current meds F/u with psychopharm as scheduled Assessment & Plan (07/31/2024 3:19 PM EDT): Mood poor today in setting of stolen baxter from bedroom Continue current meds F/u with psychopharm tomorrow Assessment & Plan (07/29/2024 10:37 AM EDT): Under reasonable control Continue current meds F/u with psychopharm as scheduled Encouraged pt to use gym pass in periods of boredom for both mood and weigh loss Assessment & Plan (07/25/2024 1:05 PM EDT): A: under reasonable control P: Continue same medications and dosages. Supportive therapy Assessment & Plan (07/23/2024 2:26 PM EDT): Stable on Sertraline 100mg. Patient had behavioral health appointment this morning. -Continue individual therapy weekly or biweekly through 08/24/24 -Continue medications as prescribed Assessment & Plan (07/23/2024 9:46 AM EDT): Assessment: MDD Current Risk Assessment (if positive complete C-SSRS): None - no suicidal ideation. He does think about not being alive and the pain to end but has no plan and continues to want to live. Plan details: Type of therapy: ind therapy Frequency: weekly or biweekly Expected Duration in months (range): 08/24/24 Specific comments (if any): Assessment & Plan (07/21/2024 12:04 PM EDT): Reasonably well-controlled Continue current meds F/u with psychopharm as scheduled Assessment & Plan (07/18/2024 11:01 AM EDT): A: under reasonable control P: Continue same medications and dosages. Supportive therapy Assessment & Plan (07/16/2024 12:39 PM EDT): Anxiety, depression, and AUD all stable on current treatment plan. -Continue medication regimen -Appointment with behavioral health next week (07/23/24) Assessment & Plan (07/09/2024 5:41 PM EDT): Improving Continue current med regimen F/u with psychopharm as scheduled Assessment & Plan (07/09/2024 9:55 AM EDT): Under reasonable control Continue current med regimen F/u with psychopharm as scheduled Assessment & Plan (06/30/2024 10:46 AM EDT): A: under reasonable control P: Continue same medications and dosages. Supportive therapy Assessment & Plan (06/27/2024 12:23 PM EDT): A: under reasonable control P: Continue same medications and dosages. Supportive therapy Assessment & Plan (06/27/2024 11:13 AM EDT): Overall appears stable Continue with current regimen and follow up with psychopharm Assessment & Plan (06/20/2024 11:13 AM EDT): Under reasonable control Continue current med regimen 06/20 psychopharm f/u Assessment & Plan (06/20/2024 10:48 AM EDT): A: under reasonable control P: Continue same medications and dosages. Supportive therapy Assessment & Plan (06/20/2024 10:29 AM EDT): Assessment: MDD Current Risk Assessment (if positive complete C-SSRS): None - no suicidal ideation. He does think about not being alive and the pain to end but has no plan and continues to want to live. Plan details: Type of therapy: ind therapy Frequency: weekly or biweekly Expected Duration in months (range): 08/24/24 Specific comments (if any): Assessment & Plan (06/16/2024 2:58 PM EDT): Mood good, stable Continue current med regimen Meeting with psychopharm today Assessment & Plan (06/16/2024 2:29 PM EDT): A: under reasonable control P: Continue same medications and dosages. Supportive therapy Assessment & Plan (06/16/2024 12:38 PM EDT): A: Improving with treatment Patient having some concern he is experiencing tardive dyskensia regarding left hand numbness and weakness. P: Continue same medications and dosages. Supportive therapy AIMS assessment done during appointment. Patient scored a 1. At this time have low concern what patient is experiencing is tardive dyskensia. More probable explanations are vascular issues or neuropathy. Psychoeducation regarding tardive dyskensia. If patient still having numbness/weakness after assessment by neurology and vascular provider will consider lowering zyprexa dose. Assessment & Plan (06/06/2024 1:58 PM EDT): Assessment: MDD Current Risk Assessment (if positive complete C-SSRS): None - no suicidal ideation. He does think about not being alive and the pain to end but has no plan and continues to want to live. Plan details: Type of therapy: ind therapy Frequency: weekly or biweekly Expected Duration in months (range): 08/24/24 Specific comments (if any): Assessment & Plan (06/06/2024 12:03 PM EDT): A: increase in irritability, insomnia P: Continue same medications and dosages. Supportive therapy in regards to fathers passing. Will start behavioral health therapy 06/06 with psychiatric therapist. Strongly encourage patient to attend therapy intake appointment today Patient started on trazadone 50mg nightly by [facility] medical staff. Tolerating well so far. Assessment & Plan (06/02/2024 12:20 PM EDT): Under reasonable control Continue supportive therapy in light of father's passing 06/06 intake Assessment & Plan (05/30/2024 12:07 PM EST): A: under reasonable control P: Continue same medications and dosages. Supportive therapy in regards to fathers passing. Will start behavioral health therapy 06/06 with psychiatric therapist. Assessment & Plan (05/27/2024 11:44 AM EST): Struggling with grief over father's recent passing Has been maintaining routines well Continue current meds F/u with [facility] psychopharm as rx'd 06/06 intake Assessment & Plan (05/23/2024 1:40 PM EST): Struggling with grief over father's recent passing Has been maintaining routines well Continue current meds 05/23 psychopharm 06/06 intake Assessment & Plan (05/23/2024 9:51 AM EST): A: under reasonable control P: Continue same medications and dosages. Supportive therapy in regards to fathers passing. Will start behavioral health therapy 06/06 with psychiatric therapist. Assessment & Plan (05/21/2024 10:35 AM EST): Stable intake rescheduled to 06/05 Cont to follow w/ psychopharm Assessment & Plan (05/16/2024 1:53 PM EST): A: under reasonable control P: Continue same medications and dosages. Supportive therapy in regards to fathers passing. Will start behavioral health therapy 06/06 with psychiatric therapist. Assessment & Plan (05/14/2024 10:39 AM EST): Better mood today BH intake cancelled today was at same time as podiatry appt, pending reschedule Cont to monitor Assessment & Plan (05/11/2024 2:25 PM EST): A: Grieving father's . P: Continue same medications and dosages. Supportive therapy in regards to fathers passing. Will start behavioral health therapy 05/14 with psychiatric therapist. Assessment & Plan (05/08/2024 12:10 PM EST): Stable Continue current med regimen 05/09 psychopharm 05/14 Assessment & Plan (05/07/2024 10:35 AM EST): Stable [ ] 05/09 psychpharm [ ] 05/14 Assessment & Plan (05/06/2024 9:59 AM EST): Worsened mood in setting of loss of father recently Denies SI/HI Continue current med regimen 05/09 [facility] psychopharm 05/14 intake Encouraged pt to communicate with [facility] staff how we can best support Assessment & Plan (04/30/2024 3:09 PM EST): Improved mood, notes resolution of insomnia with melatonin 6mg Cont to monitor Assessment & Plan (04/29/2024 10:15 AM EST): Struggling with grief, depressed mood iso father's recent passing Continue current med regimen Msg sent to [facility] with [facility] number to coordinate scheduling Assessment & Plan (04/25/2024 1:32 PM EST): A: decreased mood and functioning d/t of father who was his main support system. P: Continue same medications and dosages. Supportive therapy in regards to fathers passing. Patient agreeable to have [employer] be his rep payee, will need assistance setting that up Agreeable to starting behavioral health therapy, referral placed as urgent d/t patient's decline in functioning. Not doing ADL's, high risk for relapse which would compound his psychosocial and physical health issues. Assessment & Plan (04/16/2024 10:28 AM EST): Exacerbated sx d/t recent of father Denies SI/HI, but endorses low motivation Monitor closely Assessment & Plan (04/11/2024 12:34 PM EST): Depressed, increased secondary to father's passing Has upcoming appt with psychopharm Continue with current medication regimen Assessment & Plan (04/11/2024 10:23 AM EST): A: under reasonable control. Decreased anxiety. P: Continue same medications and dosages. Supportive therapy in regards to fathers passing. Assessment & Plan (04/10/2024 9:30 PM EST): Significant depression following of his father earlier this week. He has largely been staying in his bed and room and neglecting self care. Denies SI or urges to drink He will discuss with psych tomorrow. Encouraged therapy, groups Assessment & Plan (04/09/2024 9:50 AM EST): Mood significantly deteriorated in setting of father's recent passing and loss of income Continue current med regimen Denies SI/HI Denies desire to use recreational substances Reviewed safety plan with patient and when to reach out to staff Pt requesting to rest in bed Monitor Assessment & Plan (04/04/2024 1:58 PM EST): A: Mood improving, less isolating in bed. P: Continue same medications and dosages. Supportive therapy. Assessment & Plan (03/28/2024 2:01 PM EST): A: Mood improving, less isolating in bed. P: Continue same medications and dosages. Supportive therapy. Assessment & Plan (03/17/2024 11:18 AM EST): Well-controlled at present Continue current med regimen F/u with [facility] psychopharm as scheduled Assessment & Plan (03/14/2024 2:29 PM EST): Well-controlled at present Continue current med regimen Seeing [facility] psychopharm today Assessment & Plan (01/22/2024 10:12 AM EDT): A) Under reasonable control. P) Continue current rx. Assessment & Plan (01/21/2024 11:20 AM EDT): Improving Continue current med regimen F/u with Ketan Verde today, will need to determine [facility] plan Assessment & Plan (01/17/2024 12:34 PM EDT): Improving Continue current med regimen F/u with Ketan Verde 01/20 and discuss [facility] care plan Assessment & Plan (01/15/2024 11:12 AM EDT): Improving, not optimally controlled but significant improvement from earlier in admission Reviewed hydroxyzine dosing recommendations: 50 mg AM, 25 BID PRN in afternoon/evening due to kidney disease and risk of QTc prolongation Continue rest of current med regimen as rx'd F/u with Ketan Hooper as scheduled Assessment & Plan (01/09/2024 11:04 AM EDT): Increased stress related to housing otherwise stable, fairly well controlled at present Continue current med regimen F/u with Ketan Hooper as scheduled Assessment & Plan (01/08/2024 1:41 PM EDT): Improving Continue current med regimen Seeing Ketan Hooper today for follow up Encouraged to go to [facility] for intake Assessment & Plan (01/01/2024 11:56 AM EDT): Improving Continue current meds Follows with Ketan Hooper Finished [facility] intake packet, encouraged to go for intake appt Assessment & Plan (12/28/2023 11:42 AM EDT): Currently doing well Denies cravings Continue with current regimen Assessment & Plan (12/24/2023 11:17 AM EDT): A) Stable. P) Continue current rx. Assessment & Plan (12/20/2023 3:33 PM EDT): Mood improving Continue current med regimen 12/23 Ketan G f/u appt Assessment & Plan (12/18/2023 10:07 AM EDT): Mood improving, still experiencing significant anxiety Continue current med regimen 12/23 F/u with Ketan Hooper Assessment & Plan (12/17/2023 11:33 AM EDT): A) Partially controlled. P) Continue current rx, will consider increasing brexpiprazole when due for refill. Assessment & Plan (12/12/2023 6:09 PM EDT): Improving Continue current med regimen F/u with Ketan Hooper as scheduled Assessment & Plan (12/11/2023 12:02 PM EDT): Patient stated they were feeling very depressed today and stated they believe their medications were not helping them with their depression. Stated they wanted to talk to Ketan Verde, provider, about possibly rasing their Zyprexa dose because they feel like the Rexulti medication has to many side effects. Reviewed with them that this is definitely a conversation they can have with Ketan Verde about after the patient is all set with this RN. Ketan Verde will of course let this RN know whatever they decide on. Stated they understood. Assessment & Plan (12/11/2023 11:42 AM EDT): Assessment: Increased depression, guilt after drinking over the weekend and going to hospital. Current Risk Assessment (if positive complete C-SSRS): None - no suicidal ideation. Plan details: Type of therapy: CBT regarding negative worldview and cognitions Frequency: every 2-4 weeks Expected Duration in months (range): 3 months Specific comments (if any): Continue current rx for now. Assessment & Plan (12/10/2023 4:10 PM EDT): Worsened, likely related to recent relapse Continue current med regimen 12/10 Ketan Hooper appt Assessment & Plan (12/06/2023 3:40 PM EDT): Improving Continue current med regimen F/u with Ketan G as rx'd Assessment & Plan (12/04/2023 10:44 AM EDT): A) Under fair control. P) Continue current rx, will continue to work on supporting pt in going to [facility] for [facility] intake. Assessment & Plan (11/28/2023 10:26 AM EDT): Mood improving Continue current med regimen F/u with Ketan Hooper next week [place] [facility]) helping patient get connected with [facility] services Assessment & Plan (11/23/2023 9:30 AM EDT): A: Mood improving, less isolating in bed. P: Continue same medications and dosages. Supportive therapy. Provided patient with positive reinforcement for reaching out to [facility] Assessment & Plan (11/21/2023 10:39 AM EDT): Mood improving, more motivated, less isolation in bed Continue current med regimen F/u with [facility] as scheduled Carisa CM to communicate with [facility] regarding patient starting to utilize their services Assessment & Plan (11/16/2023 9:26 AM EDT): A: Mood improving, less isolating in bed. P: Continue same medications and dosages. Patient agrees to at least call [facility] this week to talk about the program with them. Will follow up with patient in a week. Assessment & Plan (11/12/2023 3:36 PM EDT): Mood improving Continue current meds Seeing Ketan Verde today for follow up Encouraged presenting to [facility] for intake Assessment & Plan (11/12/2023 11:03 AM EDT): A) Improved compared to a couple of weeks ago, but still somewhat depressed, especially in the mornings. No significant change with decreasing olanzapine. P) Increase brexpiprazole (may have to wait until insurance can fill it). Will hold on decreasing olanzapine for now. Continue to check in with staff about symptoms. Pt plans to go to [facility] this week for increased supports. Assessment & Plan (11/05/2023 10:36 AM EDT): A) Doing well, but would still benefit from increased day structure. P) Decrease AM dose of olanzapine per our plan to reduce polypharmacy, redundancy with brexpiprazole. Waiting to hear back about [facility] respite. Assessment & Plan (11/02/2023 11:55 AM EDT): Per pt, I still worry about too much. Nonetheless, reporting improved mood and sleeping well. Emotional support provided. Pt reporting playing his [employer] Assessment & Plan (11/01/2023 11:12 AM EDT): Significant improvement in mood compared to last week Continue current meds F/u with Ketan Hooper 11/04 Assessment & Plan (10/30/2023 2:37 PM EDT): Mood improved compared to last week Continue current meds Seeing Ketan Verde tomorrow Assessment & Plan (10/30/2023 9:37 AM EDT): Mood improved compared to last week though anxiety high Continue current meds F/u with Ketan Verde as scheduled Assessment & Plan (10/29/2023 10:34 AM EDT): A) Continues to wax and wane - feeling better over the past few days, but requires close follow-up since his mood tends to change suddenly. P) Continue current meds for now. Discussed slow olanzapine taper over the next few weeks, potentially starting next week, in order to reduce redundant medications (two atypical antipsychotics). Pt in agreement. Assessment & Plan (10/26/2023 12:40 PM EDT): Stable during visit, engaging Endorsing depression but feeling a little better Missed follow up with LYSSA GASCA last week due to being in hosp, plan to follow up this upcoming week Assessment & Plan (10/25/2023 4:20 PM EDT): Ongoing depressive mood Continue current med regimen F/u with Ketan Hooper as scheduled Denies SI/HI Assessment & Plan (10/19/2023 2:19 PM EDT): A: Decreased mood. Increased anxiety. Feeling hopeless P: Consulted with patient's permanent metallurgy teacher Ketan Verde who agrees with plan to increase rexulti to 2mg nightly to address increase in depression. Recommend patient engage in psychotherapy Behavior activation Assessment & Plan (10/18/2023 10:47 AM EDT): Poorly controlled, worsened recently due to worry over father's health Reviewed resources to help father with his BH condition, will help implement Continue current regimen F/u with Ketan Hooper next week Assessment & Plan (10/15/2023 11:12 AM EDT): A) Partial improvement but not back to baseline. P) Continue current dose for now, but next appointment will likely increase rexulti and start decreasing zyprexa, depending on pt response during the next week. Assessment & Plan (10/15/2023 10:48 AM EDT): Mood and motivation improving Continue current med regimen Meeting with Ketan Hooper today for psychopharm follow up Assessment & Plan (10/12/2023 11:38 AM EDT): Largely unchanged, low mood and motivation Continue current meds - expect Rexulti to take full effect in coming weeks Denies SI/HI F/u with psychopharm as scheduled next week Assessment & Plan (10/11/2023 11:24 AM EDT): Unchanged s/p change to brexpiprazole, persistent depression and low motivation Denies SI/HI Pt with fixed belief that zyprexa was the most effective and desires to restart zyprexa/go back to prior dose - cont current regimen - fu w/ psychopharm Assessment & Plan (10/11/2023 10:45 AM EDT): Largely unchanged - significant depression, low motivation and mood Continue current meds - likely too soon to see benefit from new meds, expect effect over next few weeks F/u with Ketan Hooper as scheduled Team working on getting pt connected with [facility] services Assessment & Plan (10/09/2023 1:49 PM EDT): A) Pt continues with low mood. P) Sent message to [facility] team for support in getting to [facility] to start services. Likely too soon to see effect of adding brexpiprazole, will continue current dose for now. Assessment & Plan (10/09/2023 11:18 AM EDT): Severe depression, unchanged from last week Denies SI/HI Continues current med regimen, expect Rexulti to take effect over next few weeks Seeing Ketan Verde today Assessment & Plan (10/08/2023 10:28 AM EDT): Largely unchanged, severe depression ? Akathisia - discuss with Continue current regimen, waiting for Rexulti to take effect Denies SI/HI 10/08 Ketan Hooper appt Assessment & Plan (10/05/2023 1:20 PM EDT): Overall minimal improvement Started on rexulti past day On zyprexa and sertraline Denies SI/HI Continue follow up with psychopharm Assessment & Plan (10/04/2023 12:08 PM EDT): Mood worsening Waiting on PA for Rexulti Zyprexa decreased to start new meds F/u with Ketan Hooper as scheduled Looking into [facility] programs with cyanide case hardener for further support Assessment & Plan (10/03/2023 6:15 PM EDT): Mood worse recently Feels Zyprexa losing efficacy, dose decreased yesterday and Rexulti ordered F/u with Ketan Hooper as scheduled CM looking into [facility] services such as residential or IOP programs as patient medicaly stable but in need of psychiatric support Assessment & Plan (10/02/2023 11:07 AM EDT): Reviewed how the patients major depressive disorder has been recently. They mentioned they are not feeling like how they want to feel today and yesterday as well. Asked them if they were able to see the provider yesterday, they stated they are scheduled to see them today. Notified them that this RN has notified the provider already about them mentioning their concerns about their major depressive disorder. Assessment & Plan (10/02/2023 10:43 AM EDT): A) Ongoing depressed mood but no acute safety concerns. P) Pt agreeable to therapy referral to support efforts with symptom management, but he remains ambivalent that behavioral activation techniques discussed with this bid writer would help (staying out of bed after 1st smoke break, completing 1 task a day toward his goal of housing, etc). Will attempt to rx brexpiprazole, but may need PA (aripiprazole as adjunct for depression was ineffective in the past). If pt able to start brexpiprazole, will decrease olanzapine at future visits to reduce polypharmacy. Assessment & Plan (09/28/2023 12:04 PM EDT): Symptoms appear stable Continue with current regimen Follow up with psychopharm next week Assessment & Plan (09/26/2023 11:11 AM EDT): Condition improving Continue current med regimen F/u with Ketan Hooper as scheduled Assessment & Plan (09/25/2023 11:45 AM EDT): Reports mood is stable Able to get out of bed more, likes playing guitar Worried about what will happen if he is asked to leave [facility] Will continue to monitor, follow-up with psych team Assessment & Plan (09/24/2023 3:02 PM EDT): Improving, reasonably well-controlled at present Continue Zyprexa, Zoloft 7/2 Ketan Hooper appt Assessment & Plan (09/21/2023 12:26 PM EDT): Appears stable during visit On Zyprexa and Zoloft Continue follow up with CAMPOSMINER ASSISTANT Assessment & Plan (09/19/2023 9:44 AM EDT): Increased Zyprexa two weeks ago, improved mood since then He tells me due to increased mood he feels he can accomplish daily tasks more easily. Assessment & Plan (09/18/2023 2:47 PM EDT): Mood improving Continue current med regimen F/u with Ketan Verde as scheduled Assessment & Plan (09/18/2023 10:43 AM EDT): A) Not as depressed as several weeks ago, but still noticing dysphoric mood. Reports recent stressor with father being in the hospital. P) Continued to emphasize behavioral activation plan, and encouraged pt to consider link between stressors and mood. D/C bupropion, ineffective. Will discuss other augmentation strategies next week. Assessment & Plan (09/18/2023 10:11 AM EDT): Reports mood as stable Met with Ketan Verde earlier today Plan to decrease Wellbutrin, no other med changes Trying to stay out of bed more, listening to talk radio, will be getting cord for his guitar Continue to monitor Assessment & Plan (09/11/2023 9:45 AM EDT): Assessment: Partially controlled - improved but not in remission. Current Risk Assessment (if positive complete C-SSRS): None - no suicidal ideation. Plan details: Type of therapy: Behavioral activation Frequency: weekly Expected Duration in months (range): 3 months Specific comments (if any): Pt agrees to implement behavioral activation plan we discussed. Decrease bupropion with plan to d/c in 7 days. Continue olanzapine, sertraline. Assessment & Plan (09/11/2023 9:28 AM EDT): Ongoing low mood Worse in AM Has appt with psychopharm, Ketan Verde, today Has PRN hydroxyzine available, can use when more anxious, plans to use today Assessment & Plan (09/06/2023 4:02 PM EDT): Condition improving Continue current med regimen Follow up with Ketan Verde as scheduled Assessment & Plan (09/04/2023 10:58 AM EDT): Ongoing depression symptoms Confirmed with nurses that Zyprexa is at 8am and 8pm Pt would prefer to take at 8am and 4pm -- will message psychopharm provider about this Received guitar from home and excited to start playing Assessment & Plan (09/04/2023 1:23 PM EDT): A) Improving, but not in remission. P) Continue current rx without changes for now. Pt thinks he would benefit from olanzapine at 8am and 4pm (instead of 8 and 8), will change to 8am and 4pm. Assessment & Plan (08/28/2023 9:48 AM EDT): A) Improved since increasing olanzapine. P) Continue current rx. Lipids/A1C monitoring recommended d/t long-term use of olanzapine but not urgent, both WNL in Mar 2023. Assessment & Plan (08/28/2023 9:40 AM EDT): Reports improvement with increase in olanzapine Continues to follow with psychopharm Will be getting guitar tomorrow, excited to play more Assessment & Plan (08/24/2023 10:58 AM EDT): Feeling much better since increase in Zyprexa earlier this week. He tells me I don't have that doom feeling anymore Reviewed safety plan and when to reach out to staff. Assessment & Plan (08/21/2023 9:48 AM EDT): A) Remains poorly controlled but no acute safety concerns (SI). P) Increase olanzapine to 15mg BID Will work with [facility] staff to obtain guitar from father's house which may provide a positive activity for pt to do. Assessment & Plan (08/20/2023 6:47 PM EDT): Mood improving, depression still not well-controlled Continue current meds 08/13 Ketan Hooper appt Encouraged to speak with Ed, ANGLEDOZER OPERATOR, as well Assessment & Plan (08/17/2023 12:46 PM EDT): A: Patient's mood unchanged since last week. P: Continue same medications and dosages Recommend patient start to engage in psychotherapy to help manage depression Continue behavior activation plan Patient gets up out of bed by 8 am daily Eats breakfast in the dayroom at 830am Patient will shower and shave daily Assessment & Plan (08/16/2023 3:38 PM EDT): Improving, still not back to previous baseline Continue current med regimen F/u with psychopharm as scheduled Assessment & Plan (08/14/2023 11:30 AM EDT): A) Improved, but not yet at previous baseline. P) Continue current rx for now, may consider increasing bupropion further if symptoms do not improve. Assessment & Plan (08/14/2023 11:24 AM EDT): Reports improvement in mood with bupropion dose increase Continues to follow with psychopharm Assessment & Plan (08/10/2023 12:15 PM EDT): Mood improving since wellbutrin dose increased by psychopharm Meeting with ROSALBA Richardson this morning Continue monitoring Assessment & Plan (08/10/2023 10:55 AM EDT): A: Patient's mood improving since wellbutrin was increased last week. Increased energy and motivation. Sleeping better P: Continue same medications and dosages Continue behavior activation plan Patient gets up out of bed by 8 am daily Eats breakfast in the dayroom at 830am Patient will shower and shave daily Assessment & Plan (08/09/2023 1:25 PM EDT): Mood is still suboptimal, but improved from prior to hospitalization and treatment for pneumonia. F/u with Adeola Verde Encouraged to reestablish with [facility] Assessment & Plan (08/08/2023 4:14 PM EDT): Reports mood as improved Meds reconciled: was on lower bupropion and hydroxyzine doses while in hospital Discussed with patient, he prefers to continue with higher doses Will have f/u with Ketan Verde next week Assessment & Plan (08/03/2023 9:31 AM EDT): A: Patient remains depressed, low energy, hopeless, poor appetite. P: Increase wellbutrin xl to 300mg daily in am. Continue rest of medications at the same dosages. Start behavior activation plan Patient gets up out of bed by 8 am daily Eats breakfast in the dayroom at 830am Patient will shower and shave daily Assessment & Plan (08/02/2023 1:39 PM EDT): Depression has worsening over the past two weeks, but has not progressed since his increase in zyprexa and start of wellbutrin. No SI/HI Future-oriented. Encouraged forcing himself out of bed, keeping appts, staying active. Encouraged f/u with [facility] Assessment & Plan (07/31/2023 9:51 AM EDT): Worsening depressive symptoms Saw Ketan Verde today, plan to increase Zyprexa Also looking into program options with [facility] for other supports, has an intake tomorrow Will continue to check in and provide support to patient Assessment & Plan (07/31/2023 9:37 AM EDT): A) Remains poorly controlled. P) Increase AM dose of olanzapine (now will be 10mg BID). If AM dose makes him too sleepy, may consider 5mg in the morning and mid-day, then 10mg at bedtime. Assessment & Plan (07/27/2023 11:45 AM EDT): Ongoing severe depressive episode with lack of motivation, low energy, feelings of hopelessness Denies SI/HI Seeing Debra Sullivan, [facility] psychopharm MINER ASSISTANT today Agrees to go to [facility] for [facility] intake [facility], looking into dual diagnosis programs that accept pt's insurance Assessment & Plan (07/27/2023 9:31 AM EDT): A: Patient remains depressed, low energy, hopeless, poor appetite. Denies side effects from Wellbutrin that was started 3 days ago. P: Continue same medications and dosages. Review safety plan. If patient not having an improvement of depressive symptoms in a month would consider increasing wellbutrin dose. Assessment & Plan (07/24/2023 2:40 PM EDT): Worsening depression Pt reports not wanting to get out of bed Met with psych yesterday, switched to bupropion Has only received one dose so far Strongly denies SI Will continue to f/u and provide support Assessment & Plan (07/23/2023 12:38 PM EDT): Poorly controlled Vortioxetine discontinued, bupropion started Continue rest of medications Follows with Ketan Hooper Assessment & Plan (07/23/2023 12:02 PM EDT): A) Ongoing low mood, bupropion may better relieve his symptoms that vortioxetine. P) D/C vortioxetine, start bupropion. Reviewed side effects in detail including signs and symptoms of emergency, pt encouraged to call or make earlier appt with any questions or concerns. Assessment & Plan (07/19/2023 2:10 PM EDT): Trintellix added to regimen iso worsening depression Continue as rx'd 07/22 Ketan Hooper appt Assessment & Plan (07/17/2023 4:11 PM EDT): A) Somewhat worsened melancholic depression. Already on max dose of sertraline. P) Trial of vortioxetine. Reviewed side effects in detail including signs and symptoms of emergency, pt encouraged to call or make earlier appt with any questions or concerns. Assessment & Plan (07/17/2023 1:18 PM EDT): Worsening depression Related to stress with dad, girlfriend Recently started on vortioxetine by psychopharm, but has not yet arrived Offered ongoing support, will continue to check in on how med change is going Assessment & Plan (07/11/2023 10:32 AM EDT): Mood low this week Continue current med regimen Patient declined meeting with therapist and psychopharm yesterday but plans to meet with Ketan Verde next week Assessment & Plan (07/10/2023 12:02 PM EDT): Feels mood is still low Declines therapy at this time Encouraged ongoing follow-up with psychopharm - Ketan Verde offered to meet with patient today, patient preferred to wait until next week Assessment & Plan (07/06/2023 12:05 PM EDT): Mood is improving on treatment Continue current med regimen 07/09 psychopharm appt Assessment & Plan (07/04/2023 10:23 AM EDT): Mood is fairly well-controlled Continue current med regimen F/u with psychopharm as scheduled Assessment & Plan (06/26/2023 12:12 PM EDT): Reports recent mood improvement since dose increase of Zoloft Following with Ketan Verde No new concerns today Assessment & Plan (06/26/2023 10:47 AM EDT): A) Improved. P) Continue current rx. Assessment & Plan (06/22/2023 10:23 AM EDT): Recently worsened due to multiple life stressors Zoloft dose increase this week Continue with RG as scheduled for further management Assessment & Plan (06/19/2023 10:13 AM EDT): A) Partially worsened d/t stressors about father's health. P) Increase sertraline. Assessment & Plan (06/19/2023 9:29 AM EDT): Feels mood has worsened in setting of dad's illnesses Would like to see psychopharm today before he goes to visit dad Will message Ketan Verde to see if this would be possible Assessment & Plan (06/18/2023 3:25 PM EDT): Acutely worsened depressive symptoms lately in setting of father in hospital rehab and financial issues Continue current med regimen Seeing Ketan Verde APRN, tomorrow for further management Assessment & Plan (06/08/2023 10:37 AM EDT): Under reasonable control Continue current med regimen F/u with LYSSA GASCA as scheduled Assessment & Plan (06/05/2023 11:28 AM EDT): A) Under reasonable control. P) Continue current rx. Assessment & Plan (06/04/2023 7:46 PM EDT): Acutely worsened due to worry about father Plans to call hospital manager social responsibility for information Encouraged to speak with [facility] therapist if needed Continue current meds Assessment & Plan (05/30/2023 6:45 PM EST): Improving now that his father is receiving treatment, his stress has come down Continue current med regimen F/u with psychopharm as scheduled Assessment & Plan (05/29/2023 11:25 AM EST): Has improved now that father is hospitalized and safe Feels increased Zyprexa dose has helped Will continue current regimen, f/u with psychopharm Assessment & Plan (05/28/2023 7:45 PM EST): Improving Continue current med regimen Meeting with Ed, therapist, today F/u with Debra Sullivan on Sunday Assessment & Plan (05/25/2023 12:41 PM EST): Psychological condition is worsening Plan: per patient request Increase zyprexa dose to 5mg in am and 10mg at night to decrease depressive symptoms. Discussed this plan with patient's permanent psychopharm provider, Ketan Verde who is in agreement with plan and will see patient on Sunday. Continue rest of medications at the same doses. Psychological condition will be reassessed at the next regular appointment This provider would recommend increasing patient sertraline dose to target mood. Patient wants to increase zyprexa dose instead. Assessment & Plan (05/25/2023 12:11 PM EST): Increased sxs likely related to father's declining mental health Continue with current medication regimen Will message RG, VENIPUNCTURIST iin regards to increase in zyprexa dose as patient req Assessment & Plan (05/25/2023 9:59 AM EST): Anxiety, worrying about father's health Continue current med regimen F/u with Ketan Verde as scheduled Encouraged to speak with [facility] therapist, Ed Assessment & Plan (05/18/2023 2:10 PM EST): Stable, well-controlled Continue current med regimen F/u with as scheduled Assessment & Plan (05/15/2023 2:40 PM EST): Reports stable mood Continues on current regimen, following with psychopharm Assessment & Plan (05/15/2023 10:31 AM EST): Mood stable per patient Continue current med regimen F/u with Ketan Verde as scheduled Assessment & Plan (05/08/2023 10:48 AM EST): Reports mood as stable and improved from previous Will continue to follow-up with Ketan Verde Assessment & Plan (05/07/2023 8:55 PM EST): Well-controlled on current med regimen Continue current meds 05/08 appt Assessment & Plan (05/03/2023 2:27 PM EST): Mood is good on current med regimen Continue current meds 05/07 appt Assessment & Plan (05/01/2023 9:57 AM EST): A) Under reasonable control. P) Continue current rx, will continue reinforcing techniques like box breathing to manage anxiety. Assessment & Plan (04/30/2023 3:46 PM EST): Significant improvement on current med regimen Continue current meds 2/6 Ketan Verde appt Assessment & Plan (04/24/2023 9:51 AM EST): Feels mood much improved with Zyprexa, Zoloft Continue to follow with psychopharm team Assessment & Plan (04/23/2023 3:58 PM EST): Appears stable, reports mood as very good Continue current meds F/u with [facility] as scheduled Assessment & Plan (04/20/2023 11:31 AM EST): Stable, well appearing during visit Continue with current regimen and f/u with psychopharm Assessment & Plan (04/19/2023 3:24 PM EST): Mood appears stable Continue current med regimen F/u with [facility] as scheduled 1:1 and group therapy pending Assessment & Plan (04/17/2023 12:57 PM EST): Mood appears stable Continue current med regimen F/u with [facility] as scheduled 1:1 and group therapy pending Assessment & Plan (04/17/2023 9:50 AM EST): Mood has improved since being at [facility] Depression is big trigger for alcohol use Pt would like to continue current treatments and work with psychopharm Assessment & Plan (04/16/2023 12:00 PM EST): A) Under reasonable control. P) Continue current rx. Assessment & Plan (04/16/2023 11:53 AM EST): Well-controlled Continue current meds Meeting with ALVAREZ Reich today Asked pt to check VM, missed calls from referrals coordinators for group and 1:1 therapy Assessment & Plan (04/13/2023 11:47 AM EST): Appears stable during visit Endorses feeling well and hopeful Continue with current regimen and follow up with psychopharm Assessment & Plan (04/10/2023 11:57 AM EST): A) Under reasonable control. Pt was an active participant in his safety plan. P) Continue current rx. Assessment & Plan (04/10/2023 11:44 AM EST): Mood improving, better with zyprexa split dose Continue current med regimen Follow up with as scheduled Assessment & Plan (04/06/2023 10:49 AM EST): Psychological condition is Improving with treatment Plan: per patient request change zyprex dose to 5mg at 8am and 5mg at 4pm daily. Increase hydoxyzine 10mg to three times per day as needed for breakthrough anxiety. Continue rest of medications at the same doses. Psychological condition will be reassessed at the next regular appointment Assessment & Plan (04/06/2023 10:34 AM EST): Significant improvement on new regimen since psychiatric admission Continue current meds Meeting with Debra PINO today to discuss dosing schedule for meds On wait list for group and 1:1 therapy Assessment & Plan (04/04/2023 12:13 PM EST): Significant improvement s/p recent psychiatric admission Continue current med regimen Open to further supports (referred for 1:1 therapy and group) Assessment & Plan (04/03/2023 12:15 PM EST): A) Significantly improved since last psychiatric admission, but had several months of multiple admissions for SI as well as ETOH use. P) Continue sertraline 150mg and olanzapine 10mg. While olanzapine is not a standard treatment for unipolar depression, he has tried other adjuncts for depression (including quetiapine, aripirazole) with poor efficacy and verbalizes a strong preference to continue olanzapine. At this time, benefits outweigh risks of using olanzapine off-label for this patient. Will d/c abilify, melatonin, and PRN dosage of olanzapine. Submitted new referral for 1:1 therapy as well as group. Pt also reports he has a referral pending at [facility]. Assessment & Plan (04/03/2023 11:12 AM EST): No current outpatient psychiatric provider Interested in seeing Ketan Verde while here at [facility] Per hospital discharge summary, pt taking standing Zyprexa, PRN Zyprexa, Abilify, and 150mg Zoloft Chart updated to add Abilify and change to 150mg Zoloft as pt confirms he was taking these Message sent to psychopharm team about adding PRN Zyprexa as this was not added at the time of admission F/u with psychopharm team Assessment & Plan (09/27/2022 1:39 PM EDT): Depressive sxs improving iso recent med adjustments Continue current med regimen F/u with Ketan PINO Assessment & Plan (09/25/2022 11:21 AM EDT): Some depressive sxs still though improving Continue current meds F/u with Ketan Verde 10/03 Assessment & Plan (09/22/2022 5:34 PM EDT): Per patient feeling better Continue with zyprexa and sertraline as rx'd Continue with psychopharm visits Assessment & Plan (09/22/2022 12:27 PM EDT): Psychological condition is Improving with treatment Plan: Continue same medications and dosages. Chart cc'd to patient's permanent provider Ketan Verde. Psychological condition will be reassessed at the next regular appointment Assessment & Plan (09/21/2022 12:35 PM EDT): Improving, not resolved Continue current med regimen F/u with Ketan Verde Encouraged pt to meet with Dianne MARK on Sunday Assessment & Plan (09/20/2022 2:23 PM EDT): Significant improvement in sxs from last week Continue current meds F/u with ALVAREZ as needed Assessment & Plan (09/19/2022 3:14 PM EDT): Improving Continue current med regimen Open to meeting with Dianne MARK F/u with Ketan PINO Assessment & Plan (09/18/2022 2:45 PM EDT): Improving Continue current med regimen 10/03 Ketan Verde appt Assessment & Plan (09/15/2022 11:18 AM EDT): Worsening,symptoms poorly controled Discussed with patient sertraline was increased during today's psychopharm visit Appeared to be content with this notification Verbalizes agreement to notify staff if feels unsafe Assessment & Plan (09/15/2022 10:48 AM EDT): Psychological condition is worsening Plan: Consulted with patient's permanent provider who agreed with plan to increase patient's sertraline dose to 75mg daily to target worsening depression symptoms. Continue rest of medications at same doses. Psychological condition will be reassessed at the next regular appointment. Assessment & Plan (09/14/2022 12:43 PM EDT): Severe sxs today, likely worsened iso relapse, denies SI/HI Continue current meds F/u with Ketan Assessment & Plan (09/12/2022 11:29 AM EDT): A) Under fair control - remains symptomatic but only increased olanzapine late last week. P) Continue current rx for now. Will consider adding KAILEY as a separate diagnosis, but deferred for now. Assessment & Plan (09/08/2022 11:19 AM EDT): Increased symptoms Discussed trial of hydroxyzine to help with anxiety sxs Dose adjusted for renal function Continue with zyprexa and zoloft as rx'd Follow up with LYSSA Aceves next week Assessment & Plan (09/07/2022 1:04 PM EDT): Poorly controlled zyprexa dose increased, waiting for effect Continue current meds F/u with PRN Assessment & Plan (09/06/2022 4:27 PM EDT): Poorly controlled at present Zyprexa dose increased Continue current meds F/u with PRN Assessment & Plan (09/07/2022 3:00 PM EDT): Pt inquires about zyprexa increase, Reviewed recent increase in sertraline, and likely that benefits from increased dose have not been realized, recommend waiting before reassessment Pt may benefit from group, pt agreeable - fu w/ psychopharm as scheduled - referred for group therapy w/ focus on anxiety Assessment & Plan (09/05/2022 11:22 AM EDT): A) Continues with intermittent anxiety, panic, likely in context of housing and family stressors. P) Spoke at length about learning new coping skills to help manage intense emotions in early sobriety. Pt declines re-referral to therapy for now. Will increase olanzapine for sleep for now. Assessment & Plan (08/31/2022 4:05 PM EDT): A) Partially worsened in context of father's hospitalization. P) Discussed other stress management strategies to improve pt's ability to cope with difficult events. Will try increasing sertraline in the meantime. Assessment & Plan (08/31/2022 2:39 PM EDT): Per patient depression is stable but feeling antsy Continue with current regimen for now Follow up with LYSSA Aceves next week to discuss zyprexa dose Assessment & Plan (08/28/2022 2:30 PM EDT): Improving but still sub-optimal Continue current meds 09/05 Ketan Verde appt, discuss Zyprexa dose Assessment & Plan (08/25/2022 3:56 PM EDT): Small improvement since Zoloft dose increase, father leaving hospital F/u with regarding olanzapine dose increase request Continue current meds Assessment & Plan (08/25/2022 10:49 AM EDT): Appears stable during visit No changes to med regimen at this time Continue follow up with psychopharm as scheduled Assessment & Plan (08/23/2022 3:16 PM EDT): Improving, still suboptimal Continue current meds F/u with Ketan Verde Assessment & Plan (08/22/2022 11:40 AM EDT): Worsening mood. No SI Discussed considering increase of sertraline, but pt declines. To f/u with psychiatric provider on increasing olanzapine. Encouraged to increase movement, outside activity Assessment & Plan (08/21/2022 7:03 PM EDT): Worsened sxs recently Zoloft dose increased this week, no effect yet Monitor F/u with Ketan Verde Assessment & Plan (08/18/2022 12:19 PM EDT): Per patient not depressed Zoloft increased to 50mg, feels as though tolerating well Continue sessions with Van Assessment & Plan (08/14/2022 3:02 PM EDT): Worsening depressive sxs past week Continue current med F/u Ketan PINO tomorrow 08/19 Dianne [facility] appt Assessment & Plan (08/11/2022 10:33 AM EDT): Well-controlled presently, mood is terrific Continue current med regimen F/u with Ketan Assessment & Plan (08/09/2022 10:16 AM EDT): Not feeling depressed at all Doing well on zoloft Continue with psychopharm sessions/regimen Assessment & Plan (08/07/2022 3:30 PM EDT): Stable Continue current meds F/u with Ketan Vedre Assessment & Plan (08/04/2022 10:18 AM EDT): Well-controlled Continue current meds Abstinence from etoh, cocaine applauded F/u with Ketan Verde Assessment & Plan (08/03/2022 12:29 PM EDT): Well-controlled presently Continue current meds Abstinence from etoh, cocaine applauded F/u with Ketan Verde Assessment & Plan (08/02/2022 3:53 PM EDT): Well-controlled Continue current meds Encouraged continued abstinence from etoh, cocaine F/u with Ketan Verde Assessment & Plan (08/02/2022 2:05 PM EDT): Well-controlled Continue current meds Applauded ongoing sobriety from etoh and cocaine F/u with Ketan Verde Assessment & Plan (07/31/2022 1:59 PM EDT): Well-controlled Continue current med regimen F/u with Ketan Ammon Assessment & Plan (07/25/2022 10:18 AM EDT): A) Under reasonable control. P) Continue current rx. Assessment & Plan (07/24/2022 10:43 PM EDT): Stable Continue current med regimen F/u with Ketan Verde SCN Assessment & Plan (07/20/2022 2:50 PM EDT): Well-controlled Continue [facility] meds 07/21 [facility] appt Assessment & Plan (07/17/2022 10:42 AM EDT): Mood is well-controlled, note very good effect of Zoloft especially Continue current meds 07/21 appt Assessment & Plan (07/16/2022 9:47 PM EDT): Largely triggered during periods of drug abuse Denies depressive sxs currently, no etoh or cocaine in > 1 wk Continue current meds 07/14 [facility] appt Assessment & Plan (07/13/2022 4:01 PM EDT): Well-controlled Continue current med regimen 07/14 [facility] appt Assessment & Plan (04/07/2022 2:12 PM EST): Slowly improving Continue current meds F/u with [facility] Assessment & Plan (04/03/2022 2:49 PM EST): Suboptimal control Zoloft dosage increased to 100 mg last week, waiting for effect Continue Zoloft, Zyprexa, Remeron 04/04 f/u with Ketan Assessment & Plan (03/31/2022 11:49 AM EST): Reporting increasing depressive sxs Recent adjustment zoloft dose Will continue to monitor Assessment & Plan (03/30/2022 3:44 PM EST): Worse recently Zoloft increased this week, monitor Continue current meds F/u with Ketan Assessment & Plan (03/29/2022 12:27 PM EST): Worsened recently Increased zoloft starting today Continue other medications Monitor F/u with Ketan Assessment & Plan (03/28/2022 11:01 AM EST): A) Partially improved. P) Increase sertraline. Assessment & Plan (03/22/2022 11:44 AM EST): Stable, continue with current meds and follow up with and psychopharm Assessment & Plan (03/16/2022 2:44 PM EST): Little down d/t upcoming holidays Continue current meds F/u with Ketan F/u with Dianne Assessment & Plan (03/15/2022 3:44 PM EST): Exacerbated by holidays but reports stable Continue current meds F/u with Ketan Assessment & Plan (03/13/2022 2:56 PM EST): Depressed mood iso holidays away from family Continue current meds F/u with Ketan Verde Assessment & Plan (03/10/2022 2:14 PM EST): Appears stable Continue current meds F/u with Ketan Assessment & Plan (03/09/2022 1:15 PM EST): Well-controlled Continue current med regimen F/u with Ketan PINO Assessment & Plan (03/06/2022 3:18 PM EST): Well-controlled Continue current meds F/u with ALVAREZ Reich Assessment & Plan (03/03/2022 2:31 PM EST): Stable Continue current meds F/u with Ketan PINO Assessment & Plan (03/02/2022 4:07 PM EST): Stable Continue current meds F/u with Ketan PINO Assessment & Plan (02/25/2022 11:20 AM EST): Assessment: Pt presented at baseline. Tolerating dialysis. He reported that he is feeling better medically. Thinking about housing in March. Current Risk Assessment (if positive complete C-SSRS): None - no suicidal ideation. Plan details: Type of therapy: Supportive, [place] Frequency: TBD Expected Duration in months (range): TBD Specific comments (if any): Assessment & Plan (02/24/2022 11:24 AM EST): Improved Continue with current regimen and follow up with and psychopharm Assessment & Plan (02/23/2022 3:09 PM EST): Improved Continue current med regimen 02/28 Ketan PINO appt Assessment & Plan (02/21/2022 6:14 PM EST): A) Partially improved. P) Increase sertraline. Assessment & Plan (02/21/2022 1:45 PM EST): Mood improving Zoloft increased to 50 mg qd Continue Zyprexa, Remeron F/u with Ketan PINO Assessment & Plan (02/20/2022 1:53 PM EST): Stable Continue current meds 02/21 Ketan PINO appt 02/25 Dianne appt Assessment & Plan (02/03/2022 11:56 AM EST): Reports mood as okay today Continue f/u with psychopharm and medication regimen Assessment & Plan (01/30/2022 3:28 PM EST): A) Poorly controlled. P) Re-start sertraline, no dose adjustment needed for kidney dysfunction. Assessment & Plan (01/24/2022 12:33 PM EDT): Poorly controlled Continue current med regimen 01/20 [facility] appt Assessment & Plan (01/23/2022 12:07 PM EDT): Poorly controlled Continue current med regimen 01/27 [facility] appt Assessment & Plan (01/21/2022 2:02 PM EDT): Agitated, behaving appropriately F/u with Debra , would like to discuss if he can go back up to previous psych medications dosages Assessment & Plan (01/16/2022 2:09 PM EDT): Poorly controlled Continue mirtazapine On reduced dose (2.5 mg) zyprexa daily 01/17 [facility] f/u Assessment & Plan (11/22/2021 11:03 AM EDT): A) Partial improvement noted. P) Increase sertraline. Assessment & Plan (11/21/2021 1:35 PM EDT): Moderate improvement in mood since starting Zoloft 11/22 [facility] appt Assessment & Plan (11/18/2021 11:55 AM EDT): Continue Zyprexa, full effect expected over next several weeks F/u with next week Assessment & Plan (11/17/2021 12:59 PM EDT): Continue current meds 11/18 [facility] appt Assessment & Plan (11/16/2021 3:03 PM EDT): Mood improved on 1 week of Zoloft, should continue to improve 11/18 [facility] appt Assessment & Plan (11/10/2021 1:58 PM EDT): A) Significantly worsened but no acute safety concerns, pt is future-oriented. P) Start sertraline (no renal dosing changes needed, negligible effect on QTc, and will be compatible with hemodialysis if pt starts that). Reviewed side effects in detail including signs and symptoms of emergency, pt encouraged to call or make earlier appt with any questions or concerns. Assessment & Plan (11/07/2021 3:10 PM EDT): Assessment: Pt presented with some irritability regarding his current housing. Not presenting with any insight into relapse prevention, managing finances independently, or current medical ailments. Current Risk Assessment (if positive complete C-SSRS): None - no suicidal ideation. Plan details: Type of therapy: Supportive Frequency: TBD Expected Duration in months (range): TBD Specific comments (if any): Assessment & Plan (11/05/2021 7:18 PM EDT): Psychological condition is Slightly improving with increase in mirtazepine. Still feeling irritable and angry all the time. Plan: Discussed case with patient's permanent psychopharm provider Ketan Verde who agreed with adding a lose dose of zyprexa in the morning to help decrease patient's daytime irritibility. Will add zyprexa 2.5mg daily with breakfast. Monitor renal function to see if dose adjustments need to be made. Psychological condition will be reassessed at the next regular appointment. Risks/benefits/side effects of increasing zyprexa dose discussed with pt and he verbalized understanding of the information provided and agreement with the plan. Assessment & Plan (11/04/2021 11:48 AM EDT): Stable Sleeping well Appt with Debra [facility] Assessment & Plan (11/03/2021 3:21 PM EDT): Continue current meds 11/04 [facility] appt 11/05 Dianne appt Assessment & Plan (10/31/2021 2:39 PM EDT): Continue current meds [ ] 11/04 [facility] Assessment & Plan (10/28/2021 11:08 AM EDT): Significant improvement of depressive state on current med doses Anxiety still high Continue current meds [ ] 11/04 [facility] appt Assessment & Plan (10/27/2021 1:50 PM EDT): Significant improvement in mood since mirtazapine dose increase; sleep quality is good Continue current meds 11/04 [facility] f/u Assessment & Plan (10/24/2021 1:32 PM EDT): Unchanged depressed mood, waiting for effect of increased mirtazapine dose 11/04 [facility] f/u Assessment & Plan (10/23/2021 11:37 AM EDT): Psychological condition is worsening Plan:increase mirtazepine to 30mg nightly. Monitor renal function closely with dose increase d/t patient being in [facility]. If kidney function worsens on increased dose will decrease back down and use an augmentation strategy that is less renal toxic. Continue zyprexa at 10mg nightly Psychological condition will be reassessed at the next regular appointment. Risks/benefits/side effects of increasing mirtazepine dose discussed with pt and he verbalized understanding of the information provided and agreement with the plan. Assessment & Plan (10/21/2021 1:23 PM EDT): Poorly controlled on current Zyprexa dose Seeing Debra today for medication mgmt Assessment & Plan (10/19/2021 12:34 PM EDT): 10/21 [facility] appt Continue to work with Dianne DOMINGO Assessment & Plan (10/17/2021 1:27 PM EDT): Continue current meds 10/21 [facility] appt Assessment & Plan (10/16/2021 11:36 AM EDT): Psychological condition is stable on current medications Plan: Continue same medications and dosages. Update patient's permanent provider Ketan Verde that patient was seen by this provider in [facility]. No changes made to medications. Monitor for need for dose adjustment in medications d/t patients chronic renal failure. Psychological condition will be reassessed at the next regular appointment. Assessment & Plan (09/05/2021 1:46 PM EDT): A) Partially controlled, stable overall. P) Continue current rx. Assessment & Plan (08/08/2021 11:37 AM EDT): Stable Continue current meds following Assessment & Plan (08/04/2021 4:32 PM EDT): Assessment: Pt presented with little insight into his past hospitalization. He was focused on his desire to get an apartment and move. Current Risk Assessment (if positive complete C-SSRS): None - no suicidal ideation. Plan details: Type of therapy: Support and Motivational Interviewing. Frequency: weekly Expected Duration in months (range): 3-6 months Specific comments (if any): Assessment & Plan (08/03/2021 11:38 AM EDT): Appears stable at this time Denies SI Continue with current medication regimen and follow up with LYSSA Aceves Assessment & Plan (08/02/2021 1:27 PM EDT): Stable Meds managed by Monitor Assessment & Plan (08/01/2021 3:46 PM EDT): A) Stable s/p hospitalization. P) Will increase mirtazapine for anxiety. Assessment & Plan (07/25/2021 6:05 PM EDT): Assessment: Pt presented with limited insight into his substance use and relapse prevention. He did express motivation to try a SMART recovery. Current Risk Assessment (if positive complete C-SSRS): None - no suicidal ideation. Plan details: Type of therapy: Supportive Frequency: TBD Expected Duration in months (range): TBD Specific comments (if any): Assessment & Plan (07/22/2021 12:24 PM EDT): Worsening depressive feelings today, denies SI Notified patient would message ROSALBA Aceves about medication Also agreeable to message Dianne to check in Continue with current regimen at this time Assessment & Plan (07/13/2021 12:26 PM EDT): A: Stable with current treatment. P: Continue with treatment by . Assessment & Plan (07/06/2021 8:56 PM EDT): A) Partially controlled, stressed about next steps regarding housing. P) [place] decision made to continue current rx. Assessment & Plan (06/24/2021 12:31 PM EDT): Increase in sxs today Denies any safety concerns AVELINO SON to message Dianne DUDLEYSW for f/u tomorrow during clinic Follow up with ROSALBA Aceves on Sunday Assessment & Plan (06/06/2021 3:44 PM EDT): A) Under reasonable control. P) Continue current rx. Assessment & Plan (05/20/2021 7:44 PM EST): A) Increased anxiety. P) Increase mirtazapine. Assessment & Plan (05/20/2021 10:49 AM EST): A) Poorly controlled. P) Start olanzapine and mirtazapine, will stop trazodone and quetiapine. Assessment & Plan (05/12/2021 8:13 AM EST): A) Partially controlled. P) Continue current rx. Assessment & Plan (05/05/2021 4:27 PM EST): Discussed importance of medication and therapy compliance Encouraged to reach out to staff including other sports coach or instructor for assistance and is signed up to meetings at [facility]. Congratulated on insight related to needing to stop drinking. Assessment & Plan (03/14/2021 1:05 PM EST): A) Partially controlled, stable. P) Continue current rx. Assessment & Plan (02/21/2021 2:19 PM EST): A) Pt prefers taking olanzapine to quetiapine. P) Again reviewed risks/benefit. Pt appears more stable with olanzapine, will d/c quetiapine and restart olanzapine. Assessment & Plan (02/16/2021 12:15 PM EST): Patient reports better mood than last week, less anxious Olanzapine d/c, started on seroquel, unsure if started, will f /u with RN Aware has hydroxyzine prn anxiety Follow up prn Assessment & Plan (02/15/2021 10:10 PM EST): A) Partially controlled. P) D/C olanzapine and start quetiapine (better evidence base for adjunctive use in unipolar depression, and wider dosing range to tailor to pt's needs). Assessment & Plan (02/11/2021 10:40 AM EST): Feeling anxious With recent change in zyprexa from 5mg BID PRN to 10mg QHS Feels needs something during day Will message Ketan with concerns Assessment & Plan (02/09/2021 9:30 AM EST): Well controlled at this time Continue on current regimen Assessment & Plan (02/02/2021 2:37 PM EST): Well controlled on current regimen. Plan to reconnect to care during [facility] stay Assessment & Plan (04/23/2020 4:41 PM EST): Psychological condition is sub-optimally managed at this time. Pt has a strong preference to continue olanzapine and says it is the only medication that has controlled his symptoms and would like to continue despite risks. Plan: Continue current treatment regimen. Psychological condition will be reassessed at the next regular appointment. Assessment & Plan (06/06/2019 1:36 PM EDT): Psychological condition is improving with treatment. Plan: Continue current treatment regimen. Psychological condition will be reassessed at the next regular appointment. Assessment & Plan (04/04/2019 9:53 AM EST): Psychological condition is partially controlled. . Plan: Increase fluoxetine per pt preference. Psychological condition will be reassessed at the next regular appointment. Assessment & Plan (11/18/2018 9:56 AM EDT): Improving with treatment. In good spirits. Continue current regimen with regular f/u. Assessment & Plan (11/15/2018 9:10 PM EDT): Psychological condition is partially controlled. . Plan: Increase fluoxetine as planned. Psychological condition will be reassessed at the next regular appointment. Assessment & Plan (11/12/2018 11:19 AM EDT): Psychological condition is improving with treatment. Plan: Continue current treatment regimen. Will increase fluoxetine when it is next due (pt did well before on 40mg) Psychological condition will be reassessed at the next regular appointment. Assessment & Plan (11/11/2018 9:14 AM EDT): Improved on current regimen. More hopeful, in good spirits. Checked with RN who confirmed patient is already receiving zyprexa in evening, will clarify with pt. Follow up with . Assessment & Plan (11/07/2018 12:31 PM EDT): Improved mood, hopeful. Reports good effect from meds. Has [facility] f/u tomorrow. Assessment & Plan (11/01/2018 3:40 PM EDT): Psychological condition is poorly controlled, but seems to do well on olanzapine + fluoxetine. Plan: Continue current treatment regimen. Psychological condition will be reassessed at the next regular appointment. Assessment & Plan (08/16/2018 4:53 PM EDT): Psychological condition is improving with treatment but continues with residual tx of anhedonia. Plan: Start fluoxetine. Reviewed side effects in detail including signs and symptoms of emergency, pt encouraged to call or make earlier appt with any questions or concerns. Psychological condition will be reassessed at the next regular appointment. Assessment & Plan (07/29/2018 9:54 AM EDT): Psychological condition is improving with treatment. Pt does very well on olanzapine, though he understands it is off-label use for depression and he does not seem to have bipolar spectrum illness or psychosis. He is aware of side effects. Plan: Continue olanzapine, d/c mirtazapine (not helpful). Psychological condition will be reassessed at the next regular appointment. Assessment & Plan (07/25/2018 4:22 PM EDT): Improved since restarting zyprexa. Appears to be in good spirits. Has f/u with on Sunday. Assessment & Plan (07/22/2018 7:32 PM EDT): Psychological condition is better when taking olanzapine (vs mirtazapine which is not helpful). He denies symptoms or history of caron/hypomania or psychosis, but given past benefit on olanzapine, will continue for now. . Plan: OK to start olanzapine. Will refer to therapy as well per pt preference. Psychological condition will be reassessed at the next regular appointment. Assessment & Plan (07/18/2018 11:33 AM EDT): No red flags, appears to be in good spirits today. Plans to meet with tomorrow to discuss restarting zyprexa Assessment & Plan (07/16/2018 8:44 PM EDT): Worsening depression in context of heavy etoh use and being off meds. Plan to detox, restart on meds in respite. No red flags, no SI/HI. Assessment & Plan (03/02/2018 8:31 PM EST): Psychological condition is stable, but reports that he would like to start on something Pt has been on this medication before and discussed others that he has take will see psych and psych will take over meds and will adjust med regimen if needed Assessment & Plan (02/26/2018 11:22 AM EST): Started on citalopram Psych pending Will follow-up with psych and will adjust meds if needed Confirmed no thoughts of harm to self or others Assessment & Plan (02/11/2018 9:22 AM EST): A: Improved on treatment. In good spirits. P: Continue current regimen. Assessment & Plan (01/28/2018 9:50 AM EST): A: Appears to be in good spirits. Reports improvement with tx. P; Discussed may take time for new antidepressant to take full effect. Prescribed trazadone last Sunday but not yet retrieved from pharmacy, trial and monitor. B12 deficiency 2018 Assessment & Plan (07/13/2021 12:24 PM EDT): A: Stable. Last lab 04/30/2021. No current supplement. P: Continue to monitor. Assessment & Plan (02/26/2018 11:15 AM EST): Labs reviewed monitoring closely Pt started on MVI Follow-up in 2 weeks; sooner PRN Assessment & Plan (2018 11:28 AM EDT): History of Labs ordered Follow-up in 2-4 weeks for PE; sooner PRN Kidney lesion 2018 Overview (2018): 12/2017: Per pt- seen by urology-ultrasound done; CT scan ordered Assessment & Plan (07/13/2021 3:52 PM EDT): A: Following with nephrology. P: Continue with nephrology. Assessment & Plan (02/26/2018 11:17 AM EST): Followed by urology Will monitor Assessment & Plan (02/13/2018 4:06 PM EST): 03/05/2018 Follow-Up Urology Marion Brooke, RECORD TESTER [address] [place] [id number] [phone] Assessment & Plan (01/17/2018 4:28 PM EDT): CT done this week. Has f/u with corporate services manager next week to review results. Assessment & Plan (01/10/2018 2:22 PM EDT): A: Incidental finding on US. Seen by urology on 01/02/18 with plan to obtain CT urogram for further evaluation. P: Follow up with urology on CT date. Assessment & Plan (2018 11:26 AM EDT): Per pt Complete CT scan as ordered Follow-up with specialist as directed This office for PE; sooner PRN Stage 5 chronic kidney disease on chronic dialys is 2018 08/17/2022 Overview (10/17/2023): 10/17/23: BP elevated to 178/94, uncontrolled with current regimen. Pt missed dialysis 10/15 due to GI illness. He currently has no acute sx that would raise c/f hypertensive emergency. Pt may have also missed hydralazine PM dose yesterday. Plan to increase amlodipine to 10 mg. 08/16/23 New dialysis schedule: / 12-4:30 PM [x] vein mapping [ ] AVF procedure (needs to be rescheduled, Dr. Boykin, 02/20/22: Returned to [facility] s/p tunnel cath placement and inpatient dialysis at [facility]. Pt set up for T//Sun 5:15 PM weekly dialysis at [facility] in [place]. Has [employer] for transportation needs. Will need fistula placement. Continue with Dr. Isatu Garcia. 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 He is not currently engaged in hospice care. 01/30/2022 hospital admission for dizziness, fall Chronic renal insufficiency stage V he has been recommended for dialysis but has declined. He does urinate somewhat and his potassium is actually within normal limits I have restricted the potassium in his diet would consider nephrology evaluation he has been a patient of Dr. Webster in the past. 01/16/2022: BUN 84, Cr 8.32, EGFR 7. Patient still resistant to dialysis. 06/23/2021 increased lasix to 40 mg BID, plan for avf mapping with vascular, anticipating dialysis start 02/10/22: lasix 40 added kayexalate increased to 60 mg 02/02/2021- lisinopril stopped d/t demetrio in hospital, baseline creatinine in hospital >3.3, GFR 19-20 09/16/19 Creatinine of 2.34. GFR of 30. 3+ proteinuria >>OVERVIEW FOR HYPERTENSIVE RENAL DISEASE WITH RENAL FAILURE WRITTEN ON 02/26/2018 11:21 AM BY ALLEN ACOSTA NP No HCTZ- see KFT Assessment & Plan (11/28/2024 9:50 AM EDT): Continues with dialysis three times a week Plan to have fistula accessed next week Assessment & Plan (11/27/2024 12:00 PM EDT): Will switch to using fistula access next week Continues TTS dialysis Assessment & Plan (11/20/2024 9:07 AM EDT): Fistula healed well, will switch from central access to peripheral in 1-2 weeks Continues TTS dialysis Assessment & Plan (11/17/2024 12:00 PM EDT): AV fistula took, plan to start using in 2 weeks Continues TTS dialysis Assessment & Plan (11/07/2024 10:36 AM EDT): Fistula incisions well healed Continues TTS dialysis 11/14 vascular surg f/u Assessment & Plan (11/05/2024 12:05 PM EDT): Incisions well-healed from AV fistula Continues TTS dialysis 11/14 vascular surg f/u Assessment & Plan (10/27/2024 11:10 AM EDT): POD #35 s/p right basilic AV fistula Viking removed 10/17, incisions well-healed, no SOI Continues TTS dialysis 11/14 vascular surg f/u Assessment & Plan (10/22/2024 3:47 PM EDT): POD #29 s/p right basilic AV fistula Roxy removed on 10/17 Large right upper arm surgical incision with distal bifurcation. Skin clean and dry, well-approximated without roxy. Steri-strips overlying proximal incision. Minimal incision erythema. No edema, warmth, fluctuance palpated. Continues TTS dialysis - 11/14 vascular surgery - Continue dialysis as scheduled Assessment & Plan (10/16/2024 9:37 AM EDT): POD #23 right basilic AV fistula Incision healing well, no SOI 10/17 post-op - staple removal Continues TTS dialysis Assessment & Plan (10/13/2024 2:08 PM EDT): POD #20 right basilic AV fistula Incision well-approximated, roxy intact No SOI 10/17 post-op Continues TTS dialysis Assessment & Plan (10/10/2024 11:27 AM EDT): POD #17 right basilic AV fistula Site healing well, no s/s infection Roxy remain intact Upcoming post op appt rescheduled for upcoming Sunday Continue with dialysis as schedule. Assessment & Plan (10/08/2024 2:08 PM EDT): POD #15 right basilic AV fistula Denies pain, bleeding, discharge Roxy intact, healing well Postop surg 10/06 cancelled, not yet rescheduled - Continue T/T/Sa dialysis - postop vascular appt (rescheduling) Assessment & Plan (10/03/2024 12:02 PM EDT): POD #10 AVF Incision clean and dry, no signs of infections process Skin well approximated with roxy Remind patient to reschedule post op Continue with dialysis as scheduled Assessment & Plan (10/02/2024 3:15 PM EDT): POD #9 AVF No pain along incision, skin well-approximated with roxy Pt to call to reschedule post-op Continues dialysis as scheduled Assessment & Plan (10/01/2024 1:57 PM EDT): POD#7 right basilic AV fistula surgery no pain at incision site Surgical wound healing appropriately w/ roxy in place s/p dressing dressing / - 10/06 post-op with vascular (roxy to be removed) - Continue dialysis as scheduled Assessment & Plan (09/29/2024 1:11 PM EDT): S/p right basilic AV fistula POD #6 No pain, no SOI 10/06 post-op Continues TTS dialysis Assessment & Plan (09/24/2024 3:16 PM EDT): Patient is consistent with dialysis (//Sun). He also had AV fistula surgery yesterday (09/23/24). Patient has a wound dressing at the surgical site, dressing is clean, dry and intact. Patient is not in a lot of pain and taking oxy Q6hrs (when needed). - 10/06 post op appt - continue taking oxy as prescribed (or less if not needed) - dressing should stay on for 48 hours then after 48 hours remove it and leave to be open to air Assessment & Plan (09/08/2024 10:06 AM EDT): Consistent with dialysis 09/09 pre-op 09/15 cards for pre-op clearance 09/23 fistula procedure 10/06 post-op Assessment & Plan (09/03/2024 10:36 AM EDT): Consistent with dialysis Getting pre-op labs drawn today 09/09 pre-op appt 09/15 cards - pre-op clearance 09/23 fistula Assessment & Plan (09/01/2024 1:36 PM EDT): Labile BP otherwise asx Consistent with dialysis 09/03 pre-procedure labs 09/09 pre-op 09/15 cards 09/23 fistula Assessment & Plan (08/26/2024 11:49 AM EDT): Pt to go to hospital for evaluation per [facility] policy due to missed dialysis EKG done and faxed to surgical team 09/09 pre-op 09/15 cards 09/23 fistula Assessment & Plan (08/20/2024 11:22 AM EDT): Post- dialysis sx resolved today EKG to be done this week and faxed to surg team for fistula Assessment & Plan (08/14/2024 4:40 PM EDT): Patient is scheduled for dialysis today, confirms they plan to go to dialysis. A refill for their Renvela was delivered to [facility], patient aware the refill came. Assessment & Plan (08/14/2024 1:00 PM EDT): Stable Continues TTS dialysis Needs cards clearance for fistula procecure given new RBBB, L ant fasc block on EKG 09/03 labs 09/09 pre-op 09/23 fistula Assessment & Plan (08/05/2024 2:39 PM EDT): Stable Continues TTS dialysis Assessment & Plan (07/31/2024 3:23 PM EDT): Sx hypotension yesterday thought 2/2 blood pressure medications and dialysis Will address with dialysis clinic Continues TTS dialysis Assessment & Plan (07/30/2024 10:28 AM EDT): See above Assessment & Plan (07/29/2024 10:41 AM EDT): Stable Consistent with dialysis Pre-operative labs and EKG done - EKG concerning for new RBBB and left anterior fascicular block - referred to cards by vascular, will needs cards clearance for fistula procedure 08/05 pre-op call 08/07 fistula procedure Assessment & Plan (07/23/2024 2:28 PM EDT): Stable. Last dialysis yesterday. Patient feels well, denies symptoms. Labs and ECG done at [place] this morning for pre-op. Fistula placement planned for 07/29. -Continue current treatment regimen Assessment & Plan (07/21/2024 12:06 PM EDT): Stable Continues TTS dialysis 07/23 labs, EKG 5/ fistula procedure Assessment & Plan (07/16/2024 3:15 PM EDT): Stable on dialysis. Last treatment yesterday 07/15/24. Fistula placement scheduled 07/29/24. Pt reports needing pre-op labs and EKG -Nursing to call Dr. Boykin's office to determine which preop labs/tests labs needed ([phone]) -also due for UDS Assessment & Plan (07/09/2024 5:43 PM EDT): Consistent with dialysis Vein mapping done, following up with vascular today Expecting attempt for new fistula in other arm Assessment & Plan (07/09/2024 9:57 AM EDT): Consistently attending dialysis 5/6 fistula procedure Starting [facility] Assessment & Plan (07/02/2024 2:39 PM EDT): Dialysis yesterday (07/01/24) Patient feels well, denies headache S/p vein mapping 06/30, awaiting results -Appointment with general surgery 07/07/24 Assessment & Plan (07/01/2024 5:32 PM EDT): Stable Ride service issues fixed Has not had to stay after sessions due to low bp and is much happier Assessment & Plan (06/27/2024 11:13 AM EDT): Stable Missed dialysis yesterday, plans to go tomorrow Encouraged not to miss appt Assessment & Plan (06/20/2024 11:12 AM EDT): Continues TTS dialysis Restarting fistula process 06/30 vein mapping 07/07 vasc appt Assessment & Plan (06/16/2024 2:57 PM EDT): BP wnl Missed dialysis once last week o/w consistent Continues TTS 06/30 vein mapping 07/07 vasc appt Assessment & Plan (06/05/2024 3:42 PM EDT): BP elevated, asx Planning to skip dialysis today to go to social security office Counseled risks of missed dialysis including increased risk for heart attack and stroke and reviewed recent CVA in light of missed dialysis Pt adamant about his plan Reviewed red flag sxs including cp, sob, palpitations, n/v/d, WILL with instructions to inform staff/go to ED Assessment & Plan (06/02/2024 12:24 PM EDT): Attending dialysis consistently Restarting fistula process 06/30 vein mapping 07/07 surg appt Assessment & Plan (05/28/2024 11:18 AM EST): To restart fistula/graft Follow up as scheduled [ ] 06/30 vascular US [ ] 07/07 surg appt Assessment & Plan (05/27/2024 11:48 AM EST): Fistula did not take, pt reporst 05/2024 f/u appt to restart process Consistent with dialysis Assessment & Plan (05/23/2024 1:41 PM EST): Fistula did not take, 05/2024 follow up to restart the process Consistently attending dialysis MOLST filled out with patient today, sent to medical records for scanning Assessment & Plan (05/21/2024 10:32 AM EST): S/p surg appt 05/16 - Fistula didn't take, planning to restart process Fu as scheduled 05/2024, pt to inform team of appt date/time Assessment & Plan (05/08/2024 12:14 PM EST): Dialysis later today 05/16 fistula appt Assessment & Plan (05/07/2024 10:29 AM EST): Completed dialysis yesterday - notes he had low BP and required additional fluids that prolonged stay [ ] 05/16 fistula appt Assessment & Plan (05/06/2024 9:57 AM EST): Missed Sunday dialysis, reports he will attend today 05/16 fistula appt Assessment & Plan (04/30/2024 3:10 PM EST): Attending dialysis as scheduled No appt for fistula seen - will fu w/ staff regarding scheduling Assessment & Plan (04/29/2024 10:12 AM EST): Consistent with dialysis since stroke Reviewed importance of consistency with dialysis treatments Continues TTS dialysis Assessment & Plan (04/24/2024 3:00 PM EST): A: BP WNL today. Med adherent. P: Continue med regimen, heart healthy diet. Dialysis today Assessment & Plan (04/23/2024 9:17 AM EST): Going to dialysis Hasn't rescheduled appt for fistula, pt to call Assessment & Plan (04/17/2024 9:26 PM EST): Missed dialysis 04/15/24 Plans for attending today Elevated BP, but improved from yesterday and has not allowed enough time for dose increase of carvedilol to take effect Continue to monitor Assessment & Plan (04/16/2024 10:30 AM EST): Missed dialysis 04/15 - overslept Needs to r/s fistula appt Assessment & Plan (04/15/2024 10:01 AM EST): Made it to dialysis Sunday after missing 2 consecutive sessions BP significantly elevated but asx, has dialysis this afternoon Called and set up rides with new service which he hopes will be more reliable with 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 He initially was agreeable, but has been having diarrhea and is mourning the of his father and so later declined to leave. Provided imodium for antidiarrheal, though he was still adamant about skipping diaylsis today and promises to attend Sunday. Reviewed risks of this including hospitalization, . States he is aware and resolves to stay in his room today. Reviewed with team. Continue to monitor. Assessment & Plan (04/09/2024 9:54 AM EST): Missed dialysis yesterday Declines going today Reviewed risks of skipped sessions including potentially life-threatening conditions BP elevated today despite taking medications as rx'd Asx Monitor Counseled pt to present to ED if develops cp, sob, palpitations, severe WILL Assessment & Plan (03/27/2024 11:07 AM EST): Appears well despite misisng dialysis on . Will attend today. BP still elevated but improving since increase of amlodipine on 03/25/24 Next steps for BP control likely hydralazine Will send for sleep study for possible MEAGAN. Assessment & Plan (03/25/2024 9:28 AM EST): Mild WILL possibly related to elevated BP iso missed dialysis No red flag sxs Counseled to inform staff/go to ED if develops CP, SOB, palpitations, severe WILL, acute vision changes Next dialysis this Assessment & Plan (03/24/2024 12:16 PM EST): Patient refusing dialysis today in setting of acute diarrhea Strongly recommended patient to attend and leave early if necessary Reviewed risks of missing dialysis including potentially life threatening cardiac arrhythmia, CO, Pt still declines, plans to attend dialysis Assessment & Plan (03/17/2024 11:20 AM EST): Dialysis today due to holiday schedule then resumes TTS schedule on Pt to ask dialysis team if he should be taking Kayexalate Assessment & Plan (03/14/2024 2:32 PM EST): Back on consistent dialysis Feeling okay Switching to holiday dialysis schedule: // for 2 weeks Pt arranging own rides Restart Kayexalate ? Pt will ask dialysis Assessment & Plan (03/13/2024 9:12 PM EST): Dialysis , , Sat. Euvolemic Will schedule with Dr Boykin, renal Assessment & Plan (01/21/2024 11:22 AM EDT): Skin around AVF healing well, no SOI Consistent with dialysis, pt aware that he will need to change PT-1 address to new location, plan to get picked up and dropped off at [facility] for tomorrow though 01/29 IR dialysis shunt angiography Assessment & Plan (01/18/2024 11:45 AM EDT): Stable Continues with dialysis Assessment & Plan (01/17/2024 12:39 PM EDT): Stable on thrice weekly dialysis () 01/29 IR f/u Assessment & Plan (01/15/2024 11:11 AM EDT): Healing well s/p AVF procedure, no SOI 01/29 IR f/u Continues // dialysis Assessment & Plan (01/09/2024 11:06 AM EDT): Continues / dialysis AVF s/p angioplasty healing well, waiting for vascular f/u appt before starting to use AVF Assessment & Plan (01/08/2024 1:43 PM EDT): BP elevated today Asymptomatic Expect BP to lower with dialysis this afternoon, if consistently elevated could consider increasing Amlodipine to 10 mg or adding another agent Continues dialysis Last 3 BP Readings: Date: BP: 01/08/2024 164/96 01/04/2024 120/70 2024 150/92[Manual[ Assessment & Plan (2024 11:15 AM EDT): Elevated BP past 3 readings, though on/off low BP prior weeks Monitor and if consistent elevations -> consider increasing Amlodipine to 10 mg or adding another agent Continues / dialysis BP Readings from Last 3 Encounters: 01/02/24 (!) 140/84 01/01/24 (!) 175/108 12/31/23 (!) 146/90 Assessment & Plan (01/01/2024 12:00 PM EDT): Continues dialysis Labile BP, most often elevated, consider metoprolol or amlodipine dose increase ? Monitor High BP today, asymptomatic, has dialysis later, repeat BP Assessment & Plan (12/28/2023 11:41 AM EDT): Dialysis three times a week Follow up on fistula upcoming Sunday Continue with current medication regimen Assessment & Plan (12/25/2023 11:42 AM EDT): Continues dialysis Continue current med regimen Referred to IR for AVF maturation, scheduled ? Eventual transition to AVF planned Assessment & Plan (12/20/2023 3:36 PM EDT): Continues // dialysis BP WNL today Continue current med regimen Assessment & Plan (12/18/2023 10:09 AM EDT): Continues // dialysis BP elevated though asx today Recheck BP later this AM Lower concern as long as remaining asymptomatic as patient receiving dialysis this afternoon Assessment & Plan (12/12/2023 6:09 PM EDT): Back on / dialysis schedule Continue current med regimen Assessment & Plan (12/11/2023 11:57 AM EDT): Reminded the patient they are not going to dialysis today because they received dialysis yesterday while at the hospital and will go to dialysis on . Confirmed they are aware and understood. Reminded them that medical will check in on them again tomorrow to see how they are feeling since there will be a few days until their next dialysis appointment. Assessment & Plan (12/10/2023 4:02 PM EDT): High k+, low BP in hospital Back on Kayexalate BP back to normal range Continue current med regimen Received dialysis this morning, next session will be Assessment & Plan (12/06/2023 3:38 PM EDT): Consistent with dialysis Stable per dialysis team Waiting to transition to AVF access and remove central access 12/09 vascular f/u Assessment & Plan (12/05/2023 1:38 PM EDT): Stable Wt Readings from Last 4 Encounters: 12/05/23 177 lb (80.3 kg) 12/04/23 182 lb (82.6 kg) 11/20/23 177 lb (80.3 kg) 11/12/23 176 lb 9.6 oz (80.1 kg) Assessment & Plan (12/04/2023 2:50 PM EDT): This RN reviewed with the patient how dialysis has been going for them, stated dialysis is going fine. Also reviewed how their right arm fistula is healing, this RN did not notice any redness or signs of infection. Asked if the patient had any pain or soreness related to the fistula, they said no that the fistula does not bother them at all. Confirmed they will be leaving soon for dialysis. Assessment & Plan (11/30/2023 12:10 PM EDT): BP labile though asymptomatic Continues // dialysis, waiting on monthly report card from dialysis and wants to review with [facility] providers Continue current regimen AVF well-appearing, healed Assessment & Plan (11/27/2023 10:51 AM EDT): Reviewed with them how dialysis has been going. They stated dialysis has been okay because they have recently been able to take a nap during their dialysis appointments so it helps pass the time for them. Also reminded them that if they have any instances of low BP again after dialysis to let medical know. Assessment & Plan (11/21/2023 5:45 PM EDT): BP labile, asx Uncertain pattern in high/low BPs, encouraged pt to discuss with his corporate services manager Continues // dialysis Assessment & Plan (11/20/2023 10:23 AM EDT): Reviewed with the patient about their right arm fistula. When observed this RN noticed the area still had surgical tape covering the area, the patient mentioned they were told to leave the tape as is and let it fall off on its own. Also noticed some slight swelling since it is still healing and very little bruising. Patient mentioned the fistula also does not hurt or feel sore for them anymore. Confirmed they are going to dialysis today. Assessment & Plan (11/12/2023 3:37 PM EDT): Bruising around AVF without signs of infection 11/15 vascular f/u Continues / dialysis Decrease amlodipine to 7.5 mg daily due to hypotension on dialysis days Assessment & Plan (11/07/2023 11:10 AM EDT): missed dialysis 11/05 d/t surgery, to resume usual // schedule 11/07 AVF port placed in R antecubital fossa 11/05 - dressing to be removed 11/07 - fu w/ surgery on 11/15 Assessment & Plan (11/02/2023 11:56 AM EDT): Per pt dialysis went well. Pt was able to sleep most of session, and he reports his BP was stable post-session. Assessment & Plan (11/01/2023 11:16 AM EDT): Labile BP, asymptomatic Continue current med regimen Monitor BP Continues dialysis Assessment & Plan (10/30/2023 2:38 PM EDT): Elevated BP this AM, asymptomatic 2/2 increased anxiety Recheck BP this afternoon Consider dose adjustment Assessment & Plan (10/30/2023 9:38 AM EDT): Labile BP, high today though asymptomatic Anxiety likely contributing to elevation Increase amlodipine to 10 mg daily Continue metoprolol Previously on hydralazine, d/c in hospital, no reason in hospital note, could consider adding Has dialysis today which will bring BP down Pt has home BP cuff, will take his BP this evening after dialysis [ ] 11/05 AVF surgery - needs labs, EKG, and guardian BP Readings from Last 3 Encounters: 10/30/23 (!) 180/100 10/29/23 120/80 10/26/23 126/72 Assessment & Plan (10/26/2023 12:39 PM EDT): BP well controlled Plans to continue attending dialysis Appt with caprice today for fistula placement Does not have corporate services manager other than seeing covering corporate services manager at dialysis; referral placed as should have for follow up outside of dialysis Assessment & Plan (10/25/2023 4:19 PM EDT): Borderline hypertensive today Med changes as noted Continues dialysis Assessment & Plan (10/19/2023 10:46 AM EDT): Normotensive today Dialysis yesterday, plans to attend tomorrow Assessment & Plan (10/18/2023 10:49 AM EDT): BP elevated though asymptomatic Missed last dialysis session due to GI illness No red flag sxs presently Reviewed the importance of consistent dialysis attendance, pt planning to attend today Assessment & Plan (10/17/2023 11:05 AM EDT): BP elevated to 178/94, uncontrolled with current regimen. Pt missed dialysis 10/15 due to GI illness. He currently has no acute sx that would raise c/f hypertensive emergency. Pt may have also missed hydralazine PM dose yesterday. Plan to increase amlodipine to 10 mg. Assessment & Plan (10/16/2023 10:03 AM EDT): Does not feel physically able to go to dialysis today and sit through session due to diarrhea Counseled to monitor sxs after medications this morning and strongly advised to keep dialysis session. Reviewed high risks of missing dialysis including arrhythmia, CO, Assessment & Plan (10/15/2023 10:51 AM EDT): Continues T// dialysis 8/ AVF appt Assessment & Plan (10/12/2023 11:40 AM EDT): Continues T// dialysis / AVF appt Assessment & Plan (10/11/2023 10:46 AM EDT): Continues T// dialysis / AVF appt Assessment & Plan (10/09/2023 11:19 AM EDT): BP elevated today, asx Has dialysis this afternoon Assessment & Plan (10/08/2023 10:29 AM EDT): Tolerated dialysis without issue on Sunday Closely monitor BP Encouraged not to take any sedating PRN medications before dialysis, such as Atarax Assessment & Plan (10/05/2023 1:21 PM EDT): Episode of syncope post dialysis 2/2 hypotension IVF given in ED AVF consult on 10/25 Due for dialysis tomorrow, to discuss add'l monitoring post dialysis if low BP Assessment & Plan (10/04/2023 12:09 PM EDT): SBP elevated though asymptomatic and has dialysis this afternoon Encouraged PRN hydroxyzine before sessions to help with naps Continues T//Sa dialysis 10/25 vascular appt to discuss AVF Assessment & Plan (10/03/2023 6:18 PM EDT): Continues dialysis three times per week 10/25 vascular surgery appt for AV fistula Assessment & Plan (10/02/2023 11:12 AM EDT): Also reviewed how dialysis has been for them since their schedule has changed. Expressed some dislike for their new scheduled time, patient is still on a Sunday, and Sunday schedule but the time has changed to be in the afternoon. Patient mentioned they do not like going to dialysis but tolerate it because they know it is for their health. Assessment & Plan (09/28/2023 11:05 AM EDT): Continues with dialysis three times per week Fistula scheduled for next month Assessment & Plan (09/26/2023 11:13 AM EDT): Continues T// dialysis 10/25 vascular appt for fistula Assessment & Plan (09/25/2023 11:45 AM EDT): T//Sun dialysis Plan for fistula procedure 10/25 Assessment & Plan (09/24/2023 3:01 PM EDT): Continues T// dialysis 10/25 vascular appt to discuss fistula procedure Assessment & Plan (09/21/2023 12:28 PM EDT): Continue with dialysis Has appt for fistula Assessment & Plan (09/19/2023 9:50 AM EDT): Continues dialysis T,,SUN Need to schedule fistula placement. Pt tells me he will call today Assessment & Plan (09/18/2023 2:51 PM EDT): Continues T// dialysis at [facility] Low blood pressures at end of sessions recently but self-resolving quickly Pt to call and reschedule fistula procedure Assessment & Plan (09/18/2023 10:10 AM EDT): Working on rescheduling fistula procedure Not yet done, encouraged to call his vascular doctor Assessment & Plan (09/11/2023 9:29 AM EDT): T, Th, Sat dialysis Discussed with group care worker -- AVF procedure rescheduled for 10/25 branch operations coordinator will also help pt get into his MyChart per his request Assessment & Plan (09/06/2023 4:02 PM EDT): Continues T/Th/Sa dialysis Vein mapping done Needs to reschedule AV fistula procedure Assessment & Plan (09/04/2023 10:59 AM EDT): Continues on T, Th, Sat dialysis Assessment & Plan (08/28/2023 9:41 AM EDT): Continues with T Th, Sat dialysis Needs to reschedule fistula procedure, pt will work on this Assessment & Plan (08/24/2023 10:56 AM EDT): New dialysis schedule timing changed. T,TH,Sat at 12pm BP low during and after dialysis, holding hydralazine before dialysis for now. Needs to reschedule AVF placement Assessment & Plan (08/20/2023 6:48 PM EDT): New dialysis schedule T/Th/Sa 12-4:30 PM Need to reschedule AVF placement when feeling ready Assessment & Plan (08/16/2023 8:28 AM EDT): New dialysis schedule T/Th/Sa 12-4:30 PM BP low today though asymptomatic Need to reschedule AVF placement when feeling ready Assessment & Plan (08/14/2023 11:24 AM EDT): T, Th, Sat dialysis Recently moved to early dialyzing session, not sure how he feels about this Needs to reschedule fistula placement Assessment & Plan (08/10/2023 12:16 PM EDT): Dialysis unchanged Needs to reschedule fistula placement Assessment & Plan (08/08/2023 4:20 PM EDT): T, Th, Sat dialysis Ride set up for tomorrow Underwent catheter replacement 08/05 Will still need fistula placement (missed while hospitalized) Assessment & Plan (08/02/2023 1:40 PM EDT): BP has been moderately elevated over the past week. Weight is stable, and notably lower that last check. Will see vascular for vein mapping today Continue current regimen Assessment & Plan (08/01/2023 6:38 PM EDT): Continues with // dialysis Vein mapping appt tomorrow 08/05 AVF procedure Assessment & Plan (07/31/2023 9:52 AM EDT): Vein mapping appointment in two days Coincides with dialysis Patient will call dialysis to confirm if they recommend a different time - group care worker will assist with this as pt feels his depression may make this difficult Assessment & Plan (07/27/2023 11:46 AM EDT): Missed dialysis yesterday due to alcohol intoxication RN calling dialysis center to see if patient should come in today or tomorrow as scheduled Assessment & Plan (07/24/2023 2:43 PM EDT): Will have dialysis later today, continues on T, , Sat regimen Assessment & Plan (07/23/2023 12:39 PM EDT): Continues / dialysis 08/01 vein mapping 08/05 vasc appt Assessment & Plan (07/19/2023 2:11 PM EDT): Continues / dialysis Ride service working again Assessment & Plan (07/17/2023 1:30 PM EDT): Continues on T, Th, Sat dialysis Assessment & Plan (07/13/2023 11:34 AM EDT): Unchanged, dialysis 3 times per week Frustation with central cath, eager to move forward with fistula, appt next month Assessment & Plan (07/11/2023 10:24 AM EDT): Continues dialysis 3 times per week Experiencing ride issues, encouraged to call [employer] to request different ride vendor Frustrated with central cath issues, will be switching to AVF soon 08/01 vein mappnig 08/05 vascular appt Assessment & Plan (07/10/2023 12:03 PM EDT): Following with nephrology Dialysis TID No further chest pain during dialysis Will continue to monitor Assessment & Plan (07/06/2023 12:07 PM EDT): Continues T//Sa dialysis Decrease dietary potassium intake per nephro 08/01 vein mapping 08/04 vasc appt Assessment & Plan (07/04/2023 10:26 AM EDT): BP WNL today, asymptomatic Continue current med regimen Continues dialysis 3 times / week 08/01 vein mapping appt 08/05 AVF appt Assessment & Plan (06/28/2023 10:58 AM EDT): Blood pressure elevated on recheck - 3 hrs post meds Asymptomatic. Appears volatile but responsive to TID hydralazine in addition to metoprolol, amlodipine. Conintue with current dosing. Advised to report symptoms F/u with dialysis today Assessment & Plan (06/26/2023 12:11 PM EDT): T, Th, Sat dialysis Plan for vein mapping in July Assessment & Plan (06/25/2023 2:34 PM EDT): Has dialysis T, TH and SAT Tolerating well 08/01 vein mapping 3:30 PM ([facility], [address] [place], [place] [address]) 08/05 AVF procedure 3:30 PM (Dr. Boykin, [address] [place] [address]) Assessment & Plan (06/22/2023 10:26 AM EDT): Continues T/Th/Sa dialysis Tolerating well No recurrence of CP Issues with rides being late, consider filing complaint with service and switching drivers 08/01 vein mapping 08/05 AVF procedure Assessment & Plan (06/20/2023 1:34 PM EDT): Continues dialysis T, Sat Assessment & Plan (06/19/2023 9:31 AM EDT): T, , Sat No issues at dialysis recently Assessment & Plan (06/18/2023 3:29 PM EDT): Continues T//Sat dialysis No recurrence of chest pain 08/01 vein mapping appt 08/05 vasc appt Last 3 BP Readings: Date: BP: 06/18/2023 142/82 06/15/2023 124/77 06/14/2023 141/84 Assessment & Plan (06/12/2023 3:17 PM EDT): Continues on dialysis T, , Sat No new chest pain Does periodically get lows with dialysis Continue to f/u with nephro provider Assessment & Plan (06/08/2023 11:24 AM EDT): Goes to dialysis T,,Sat 5pm Pt reports very low BP after dialysis. Last night they made him stay until BP stable. He gets some dizziness when this happens. This RN recommends increasing fluid intake after dialysis and will let [facility] staff to allow him to have a Gatorade zero on these nights Assessment & Plan (06/08/2023 10:39 AM EDT): Continues dialysis T/Th/Sa PM 08/01 vein mapping appt 08/05 AV fistula procedure Assessment & Plan (06/06/2023 11:51 AM EDT): Continues at dialysis three times per week Blood work at dialysis this week reports normal values, aside from slightly high K+ (5.6), advised dietary modifications [ ] 08/01 vein mapping 3:30 PM ([facility], [address] [place], [place] [address]) [ ] 08/05 AVF procedure 3:30 PM (Dr. Boykin, [facility]) Assessment & Plan (06/04/2023 7:50 PM EDT): Hypotensive after treatments with quickly resolving symptoms, otherwise tolerating dialysis well Continue dialysis as scheduled and current med regimen 07/11 vein mapping 07/15 AV fistula procedure Assessment & Plan (06/01/2023 12:02 PM EST): Unchanged Hypotensive after treatments Dialysis facility and nephrology aware Assessment & Plan (05/30/2023 6:47 PM EST): Continues T// evening dialysis Vein mapping rescheduled to 07/11 Pt to call and reschedule AV Fistula procedure now Assessment & Plan (05/29/2023 11:26 AM EST): Continues on dialysis Tues, Thurs, Sat Missed vein mapping appt, rescheduled 07/11 Advised to call vascular doctor as will likely need to reschedule procedure on 06/10 Assessment & Plan (05/28/2023 7:48 PM EST): BP labile, encouraged to discuss BP expectations with corporate services manager Continues with T// evening dialysis Continue current med regimen Pt to call and reschedule vein mapping appt 06/10 AVF procedure Assessment & Plan (05/25/2023 12:15 PM EST): Unchanged dialysis regimen BP in either hypotensive or hypertensive range Encouraged to discuss with corporate services manager as did express sl dizziness with BP Encouraged to stay well hydrated Last 3 BP Readings: Date: BP: 05/25/2023 94/63 05/24/2023 111/64 05/21/2023 138/76 Assessment & Plan (05/25/2023 10:04 AM EST): Continues on evening dialysis No recurrent cp Encouraged pt to discuss BP expectations with corporate services manager at next dialysis appt Missed vein mapping appt ? [ ] 06/10 AVF procedure Assessment & Plan (05/25/2023 10:01 AM EST): >>ASSESSMENT AND PLAN FOR HYPERTENSIVE RENAL DISEASE WITH RENAL FAILURE WRITTEN ON 2018 11:25 AM BY ALLEN ACOSTA NP Med list updated Well controlled today on current regimen Follow-up in 2-4 weeks for PE; sooner PRN Labs ordered Assessment & Plan (05/25/2023 10:01 AM EST): >>ASSESSMENT AND PLAN FOR HYPERTENSIVE RENAL DISEASE WITH RENAL FAILURE WRITTEN ON 01/07/2018 8:38 PM BY LIVE CASIANO NP A: Above goal, asymptomatic P: Continue current regimen. Reviewed lifestyle interventions and importance of low sodium diet. Recheck tomorrow, consider adding hctz if elevated readings persist. Assessment & Plan (05/25/2023 10:01 AM EST): >>ASSESSMENT AND PLAN FOR HYPERTENSIVE RENAL DISEASE WITH RENAL FAILURE WRITTEN ON 01/09/2018 3:01 PM BY LIVE CASIANO NP A: Above goal prior to med administration. Asymptomatic. Attempted to recheck later in morning, but patient out of building. P: Continue current regimen. Reviewed lifestyle interventions and importance of low sodium diet. Monitor. Assessment & Plan (05/25/2023 10:01 AM EST): >>ASSESSMENT AND PLAN FOR HYPERTENSIVE RENAL DISEASE WITH RENAL FAILURE WRITTEN ON 01/10/2018 1:51 PM BY LIVE CASIANO NP A: Consistently above goal, asymptomatic. P: Add low dose hctz. Check labs. Monitor Bps. Assessment & Plan (05/25/2023 10:01 AM EST): >>ASSESSMENT AND PLAN FOR HYPERTENSIVE RENAL DISEASE WITH RENAL FAILURE WRITTEN ON 01/14/2018 1:24 PM BY LIVE CASIANO NP A: Improved, borderline P: Monitor, consider increasing diuretic dose. Assessment & Plan (05/25/2023 10:01 AM EST): >>ASSESSMENT AND PLAN FOR HYPERTENSIVE RENAL DISEASE WITH RENAL FAILURE WRITTEN ON 01/17/2018 4:24 PM BY LIVE CASIANO NP A: Above goal, asymptomatic P: Increase hctz dose to 25 mg daily. Recheck bmp at PCP tomorrow ensure potassium has stabilized on diuretic. Reviewed lifestyle interventions and importance of low sodium diet. Assessment & Plan (05/25/2023 10:01 AM EST): >>ASSESSMENT AND PLAN FOR HYPERTENSIVE RENAL DISEASE WITH RENAL FAILURE WRITTEN ON 02/26/2018 11:18 AM BY ALLEN ACOSTA NP Monitoring Elevated today No change in meds at this time Will follow-up in 2 weeks and will adjust if needed or PRN Assessment & Plan (05/25/2023 10:01 AM EST): >>ASSESSMENT AND PLAN FOR HYPERTENSIVE RENAL DISEASE WITH RENAL FAILURE WRITTEN ON 01/28/2018 9:48 AM BY LIVE CASIANO NP A: Borderline, improved. Asymptomatic. P: Recheck BMP. Continue current regimen and monitor. Assessment & Plan (05/25/2023 10:01 AM EST): >>ASSESSMENT AND PLAN FOR HYPERTENSIVE RENAL DISEASE WITH RENAL FAILURE WRITTEN ON 03/02/2018 8:28 PM BY ALLEN ACOSTA NP Hypertension is controlled on current medication regimen Continue current med; refills given F/u in 3-6 months; sooner PRN Assessment & Plan (05/25/2023 10:01 AM EST): >>ASSESSMENT AND PLAN FOR HYPERTENSIVE RENAL DISEASE WITH RENAL FAILURE WRITTEN ON 02/04/2018 1:53 PM BY LIVE CASIANO NP A: At goal P: Continue current regimen. Reviewed lifestyle interventions and importance of low sodium diet. Monitor renal function Assessment & Plan (05/25/2023 10:01 AM EST): >>ASSESSMENT AND PLAN FOR HYPERTENSIVE RENAL DISEASE WITH RENAL FAILURE WRITTEN ON 02/11/2018 9:22 AM BY LIVE CASIANO NP A: At goal P: Continue current regimen. Reviewed lifestyle interventions and importance of low sodium diet. Assessment & Plan (05/25/2023 10:01 AM EST): >>ASSESSMENT AND PLAN FOR HYPERTENSIVE RENAL DISEASE WITH RENAL FAILURE WRITTEN ON 03/28/2018 11:17 AM BY LIVE CASIANO NP A: Borderline. Asymptomatic. P: Continue current regimen. Reviewed lifestyle interventions and importance of low sodium diet. Encourage f/u with PCP Assessment & Plan (05/25/2023 10:01 AM EST): >>ASSESSMENT AND PLAN FOR HYPERTENSIVE RENAL DISEASE WITH RENAL FAILURE WRITTEN ON 04/27/2018 6:14 AM BY LIVE CASIANO NP A: Near goal despite stopping beta jennifer abruptly several days ago. Asymptomatic. P: Discussed risks of abruptly stopping bb. Continue current regimen. Reviewed lifestyle interventions and importance of low sodium diet. Follow up with PCP for repeat blood pressure check Assessment & Plan (05/25/2023 10:01 AM EST): >>ASSESSMENT AND PLAN FOR HYPERTENSIVE RENAL DISEASE WITH RENAL FAILURE WRITTEN ON 07/15/2018 4:27 PM BY LIVE CASIANO NP Feels well. Unfortunately unable to assess blood pressure at home visit today d/t non functioning cuff. Expect likely to be high given off his medications. Reviewed red flag sx for which to seek immediate medical attention. Plan to have patient come to [facility] tomorrow morning (will be driven in by his development and housing director Brett) either to be admitted to [facility] or for assistance with securing a detox bed. Assessment & Plan (05/25/2023 10:01 AM EST): >>ASSESSMENT AND PLAN FOR HYPERTENSIVE RENAL DISEASE WITH RENAL FAILURE WRITTEN ON 07/18/2018 3:59 PM BY LIVE CASIANO NP A: Elevated, asymptomatic. Restarted metoprolol this morning. Hesitance for restarting all meds at once given low bp yesterday after receiving ativan. P: Rec'd 0.5 mg ativan after visit, recheck blood pressure in 1 hour. Consider restarting amlodipine-benazepril if continues to be elevated. Reviewed red flag sx for which to seek immediate medical attention. At recheck BP 122/80, continue to monitor closely and titrate up bp meds as needed. Assessment & Plan (05/25/2023 10:01 AM EST): >>ASSESSMENT AND PLAN FOR HYPERTENSIVE RENAL DISEASE WITH RENAL FAILURE WRITTEN ON 07/19/2018 1:32 PM BY DEJAN SANDOVAL NP Restart bp meds today, check labs in a week. Assessment & Plan (05/25/2023 10:01 AM EST): >>ASSESSMENT AND PLAN FOR HYPERTENSIVE RENAL DISEASE WITH RENAL FAILURE WRITTEN ON 07/25/2018 4:17 PM BY LIVE CASIANO NP Above goal, asymptomatic. Recheck this afternoon, if continues to be elevated, plan to intensify bp regimen. Reviewed red flag sx for which to seek immediate medical attention. Assessment & Plan (05/25/2023 10:01 AM EST): >>ASSESSMENT AND PLAN FOR HYPERTENSIVE RENAL DISEASE WITH RENAL FAILURE WRITTEN ON 07/26/2018 2:48 PM BY LIVE CASIANO NP Improved. Monitor, consider increasing BB dose if continue to be elevated. Reviewed lifestyle interventions and importance of low sodium diet. Assessment & Plan (05/25/2023 10:01 AM EST): >>ASSESSMENT AND PLAN FOR HYPERTENSIVE RENAL DISEASE WITH RENAL FAILURE WRITTEN ON 07/29/2018 10:08 AM BY LIVE CASIANO NP At goal on recheck. Continue current regimen. Reviewed lifestyle interventions and importance of low sodium diet. Assessment & Plan (05/25/2023 10:01 AM EST): >>ASSESSMENT AND PLAN FOR HYPERTENSIVE RENAL DISEASE WITH RENAL FAILURE WRITTEN ON 08/13/2018 2:09 PM BY ALLEN ACOSTA NP Hypertension is controlled on current medication regimen Continue current med; refills given F/u in 3-6 months; sooner PRN Assessment & Plan (05/25/2023 10:01 AM EST): >>ASSESSMENT AND PLAN FOR HYPERTENSIVE RENAL DISEASE WITH RENAL FAILURE WRITTEN ON 08/01/2018 12:14 PM BY LIVE CASIANO NP At goal. Continue current regimen. Reviewed lifestyle interventions and importance of low sodium diet. Assessment & Plan (05/25/2023 10:01 AM EST): >>ASSESSMENT AND PLAN FOR HYPERTENSIVE RENAL DISEASE WITH RENAL FAILURE WRITTEN ON 10/06/2018 8:55 PM BY LIVE CASIANO NP At goal depsite being off meds. Drinking heavily. Plan to assist with detox referral, then [facility] admission for stabilization. Assessment & Plan (05/25/2023 10:01 AM EST): >>ASSESSMENT AND PLAN FOR HYPERTENSIVE RENAL DISEASE WITH RENAL FAILURE WRITTEN ON 11/04/2018 11:04 AM BY LIVE CASIANO NP At goal. Continue current regimen. Reviewed lifestyle interventions and importance of low sodium diet. Assessment & Plan (05/25/2023 10:01 AM EST): >>ASSESSMENT AND PLAN FOR HYPERTENSIVE RENAL DISEASE WITH RENAL FAILURE WRITTEN ON 11/07/2018 12:21 PM BY LIVE CASIANO NP At goal. Continue current regimen. Reviewed lifestyle interventions and importance of low sodium diet. Assessment & Plan (05/25/2023 10:01 AM EST): >>ASSESSMENT AND PLAN FOR HYPERTENSIVE RENAL DISEASE WITH RENAL FAILURE WRITTEN ON 11/11/2018 9:07 AM BY LIVE CASIANO NP Near goal. Continue current regimen and monitor. Assessment & Plan (05/25/2023 10:01 AM EST): >>ASSESSMENT AND PLAN FOR HYPERTENSIVE RENAL DISEASE WITH RENAL FAILURE WRITTEN ON 11/18/2018 9:58 AM BY LIVE CASIANO NP Well controlled. Continue current regimen. Monitor. Assessment & Plan (05/25/2023 10:01 AM EST): >>ASSESSMENT AND PLAN FOR HYPERTENSIVE RENAL DISEASE WITH RENAL FAILURE WRITTEN ON 11/26/2018 9:09 AM BY DEJAN SANDOVAL NP Hypertension is improving with treatment. Plan: Continue current treatment regimen, Stop smoking and Continue current medications Blood pressure will be reassessed in 4 weeks. Assessment & Plan (05/25/2023 10:01 AM EST): >>ASSESSMENT AND PLAN FOR HYPERTENSIVE RENAL DISEASE WITH RENAL FAILURE WRITTEN ON 02/07/2021 5:45 AM BY LIVE CASIANO NP Well controlled today. Continue current regimen and monitor. Recheck labs Sunday Assessment & Plan (05/25/2023 10:01 AM EST): >>ASSESSMENT AND PLAN FOR HYPERTENSIVE RENAL DISEASE WITH RENAL FAILURE WRITTEN ON 02/07/2021 11:35 AM BY LIVE CASIANO NP At goal. Continue current regimen. Reviewed lifestyle interventions and importance of low sodium diet. Check labs. Assessment & Plan (05/25/2023 10:01 AM EST): >>ASSESSMENT AND PLAN FOR HYPERTENSIVE RENAL DISEASE WITH RENAL FAILURE WRITTEN ON 05/25/2021 8:17 AM BY CALI HARRINGTON PA-C HTN is well controlled Continue current regimen of norvasc and hydralazine and coreg Assessment & Plan (05/25/2023 10:01 AM EST): >>ASSESSMENT AND PLAN FOR HYPERTENSIVE RENAL DISEASE WITH RENAL FAILURE WRITTEN ON 05/26/2021 11:59 AM BY CLIFFORD HU NP BP is approaching goal Reviewed modifiable risk factors including smoking which would help control BP Is taking several medications, compliant, and without side effects Assessment & Plan (05/25/2023 10:01 AM EST): >>ASSESSMENT AND PLAN FOR HYPERTENSIVE RENAL DISEASE WITH RENAL FAILURE WRITTEN ON 06/09/2021 3:18 PM BY CLIFFORD HU NP BP well controled, no current changes to medication Assessment & Plan (05/25/2023 10:01 AM EST): >>ASSESSMENT AND PLAN FOR HYPERTENSIVE RENAL DISEASE WITH RENAL FAILURE WRITTEN ON 06/30/2021 10:27 PM BY CLIFFORD HU NP Discussed process for second opinion, wants to see current corporate services manager once more in July (already scheduled) and then make a decision Current K and Cre are improved but not WNL yet Assessment & Plan (05/25/2023 10:01 AM EST): >>ASSESSMENT AND PLAN FOR HYPERTENSIVE RENAL DISEASE WITH RENAL FAILURE WRITTEN ON 08/03/2021 11:44 AM BY ZARA THOMPSON NP Continue with new regimen: coreg, amlodipine and hydralazine BP remains suboptimal but improved from prior measurements BP Readings from Last 5 Encounters: 08/03/21 158/96 08/02/21 159/87 08/01/21 139/84 07/22/21 (!) 160/102 07/21/21 160/96 Assessment & Plan (05/25/2023 10:01 AM EST): >>ASSESSMENT AND PLAN FOR HYPERTENSIVE RENAL DISEASE WITH RENAL FAILURE WRITTEN ON 08/05/2021 12:10 PM BY ZARA THOMPSON NP Last 3 BP Readings: Date: BP: 08/05/2021 137/88 08/04/2021 166/92 08/03/2021 158/96 BP decreased today WILL resolved CMP check Sunday Will continue to monitor and make changes as needed Assessment & Plan (05/25/2023 10:01 AM EST): >>ASSESSMENT AND PLAN FOR HYPERTENSIVE RENAL DISEASE WITH RENAL FAILURE WRITTEN ON 01/24/2022 11:24 AM BY KEYLA SOLORIO NP BP normal today. Improved after carvedilol increase yesterday Continue med regimen BMP today Assessment & Plan (05/25/2023 10:01 AM EST): >>ASSESSMENT AND PLAN FOR HYPERTENSIVE RENAL DISEASE WITH RENAL FAILURE WRITTEN ON 03/28/2022 11:37 AM BY KEYLA SOLORIO NP Responding to dialysis well. BP's well controlled. P: will obtain labs ordered 03/24/22. F/u with renal as scheduled Continue med regimen Assessment & Plan (05/25/2023 10:01 AM EST): >>ASSESSMENT AND PLAN FOR HYPERTENSIVE RENAL DISEASE WITH RENAL FAILURE WRITTEN ON 08/15/2022 9:59 AM BY KEYLA SOLORIO NP BP mildly elevated past two days. Improved some today Will continue TID hydralazine along with current regimen, as he reports consistent lows following dialysis. Assessment & Plan (05/25/2023 10:01 AM EST): >>ASSESSMENT AND PLAN FOR HYPERTENSIVE RENAL DISEASE WITH RENAL FAILURE WRITTEN ON 08/17/2022 7:35 PM BY CALI HARRINGTON PA-C Improved today Continue current medication regimen without changes Monitor Bp weekly Assessment & Plan (05/25/2023 10:01 AM EST): >>ASSESSMENT AND PLAN FOR HYPERTENSIVE RENAL DISEASE WITH RENAL FAILURE WRITTEN ON 08/18/2022 12:21 PM BY ZARA THOMPSON NP Last 3 BP Readings: Date: BP: 08/18/2022 116/74 08/17/2022 128/72 08/16/2022 110/56 Lab Results Component Value Date NA 139 08/07/2022 K 4.2 08/07/2022 CHLORIDE 97 (L) 08/07/2022 C02 30 08/07/2022 CALCIUM 9.6 08/07/2022 BUN 44 (H) 08/07/2022 BUNCREAT 17 11/13/2018 EGFR 10 (L) 08/07/2022 CREATININE 6.18 (H) 08/07/2022 PROTEIN 7.8 08/07/2022 ALBUMIN 4.6 08/07/2022 GLOBULIN 3.2 08/07/2022 AGRATIO 1.2 2018 AST 18 08/07/2022 ALT 10 08/07/2022 ALKPHOS 148 (H) 08/07/2022 BILIRUBIN 0.2 08/07/2022 GLUCOSE 96 08/07/2022 BP well controlled today Continue with current regimen Continue reassessing Assessment & Plan (05/25/2023 10:01 AM EST): >>ASSESSMENT AND PLAN FOR HYPERTENSIVE RENAL DISEASE WITH RENAL FAILURE WRITTEN ON 08/25/2022 10:50 AM BY ZARA THOMPSON NP Last 3 BP Readings: Date: BP: 08/25/2022 108/64 08/24/2022 124/70 08/23/2022 92/56 Lab Results Component Value Date NA 139 08/07/2022 K 4.2 08/07/2022 CHLORIDE 97 (L) 08/07/2022 C02 30 08/07/2022 CALCIUM 9.6 08/07/2022 BUN 44 (H) 08/07/2022 BUNCREAT 17 11/13/2018 EGFR 10 (L) 08/07/2022 CREATININE 6.18 (H) 08/07/2022 PROTEIN 7.8 08/07/2022 ALBUMIN 4.6 08/07/2022 GLOBULIN 3.2 08/07/2022 AGRATIO 1.2 2018 AST 18 08/07/2022 ALT 10 08/07/2022 ALKPHOS 148 (H) 08/07/2022 BILIRUBIN 0.2 08/07/2022 GLUCOSE 96 08/07/2022 BP well controlled Continue with current regimen Continue to reassess in clinic Assessment & Plan (05/25/2023 10:01 AM EST): >>ASSESSMENT AND PLAN FOR HYPERTENSIVE RENAL DISEASE WITH RENAL FAILURE WRITTEN ON 08/31/2022 2:37 PM BY ZARA THOMPSON NP Last 3 BP Readings: Date: BP: 08/31/2022 150/84 08/30/2022 114/64 08/29/2022 148/87 Lab Results Component Value Date NA 139 08/07/2022 K 4.2 08/07/2022 CHLORIDE 97 (L) 08/07/2022 C02 30 08/07/2022 CALCIUM 9.6 08/07/2022 BUN 44 (H) 08/07/2022 BUNCREAT 17 11/13/2018 EGFR 10 (L) 08/07/2022 CREATININE 6.18 (H) 08/07/2022 PROTEIN 7.8 08/07/2022 ALBUMIN 4.6 08/07/2022 GLOBULIN 3.2 08/07/2022 AGRATIO 1.2 2018 AST 18 08/07/2022 ALT 10 08/07/2022 ALKPHOS 148 (H) 08/07/2022 BILIRUBIN 0.2 08/07/2022 GLUCOSE 96 08/07/2022 BP suboptimal today however has not taken hydralazine yet No red flags on exam Changes to medication regimen: Will continue reassessin Assessment & Plan (05/25/2023 10:01 AM EST): >>ASSESSMENT AND PLAN FOR HYPERTENSIVE RENAL DISEASE WITH RENAL FAILURE WRITTEN ON 09/12/2022 10:03 AM BY KEYLA SOLORIO NP Elevated BP today. 09/08 has borderline low. Will continue to monitor Continue med regimen and dialysis. Assessment & Plan (05/25/2023 10:01 AM EST): >>ASSESSMENT AND PLAN FOR HYPERTENSIVE RENAL DISEASE WITH RENAL FAILURE WRITTEN ON 04/17/2023 9:48 AM BY IVETTE ESPARZA MD BP elevated today Appears BP elevated on dialysis days, normal on other days Pt will be seeing nephrology at dialysis today, advised to bring up to them Will not change regimen currently as do not want to drop BP too low on days when not having dialysis Assessment & Plan (05/25/2023 10:01 AM EST): >>ASSESSMENT AND PLAN FOR HYPERTENSIVE RENAL DISEASE WITH RENAL FAILURE WRITTEN ON 04/19/2023 9:47 PM BY KEYLA SOLORIO NP BP acceptable today, asymptomatic Continue dialysis and med regimen Assessment & Plan (05/25/2023 10:01 AM EST): >>ASSESSMENT AND PLAN FOR HYPERTENSIVE RENAL DISEASE WITH RENAL FAILURE WRITTEN ON 05/01/2023 10:31 AM BY IVETTE ESPARZA MD BP elevated today, but reportedly drops low during dialysis Advised patient to discuss medication management with his corporate services manager, believes he will be seeing her during dialysis today Assessment & Plan (05/18/2023 2:14 PM EST): No recurrent CP, tolerating dialysis well Continues 3 times per week BP well-controlled Continue current med regimen 05/21 vein mapping 06/10 AVF procedure Assessment & Plan (05/15/2023 2:40 PM EST): No further chest pain during dialysis Has appt set up for later today Continue T, Th, Sat dialysis Assessment & Plan (05/15/2023 10:33 AM EST): Attending dialysis 3 times per week without issue BP improved, encouraged to take regular reading with automated cuff Last 3 BP Readings: Date: BP: 05/11/2023 122/74 05/07/2023 132/84 05/04/2023 126/86 Assessment & Plan (05/11/2023 1:47 PM EST): Unchanged, dialysis three times a week BP within normal limits today, continue monitoring Last 3 BP Readings: Date: BP: 05/11/2023 122/74 05/07/2023 132/84 05/04/2023 126/86 Assessment & Plan (05/08/2023 10:59 AM EST): Continue three times weekly dialysis Reports BP as improved, encouraged to continue discussing with corporate services manager Assessment & Plan (05/07/2023 8:57 PM EST): Continues with dialysis 3 times per week Continue current meds BP improved today 05/21 vein mapping 3/1 AVF procedure Assessment & Plan (05/25/2023 10:01 AM EST): >>ASSESSMENT AND PLAN FOR STAGE 5 CHRONIC KIDNEY DISEASE ON CHRONIC DIALYSIS (FORMERLY [facility]) WRITTEN ON 05/03/2023 2:41 PM BY PRESTON KAHN Continues with dialysis 3 times per week 05/21 vein mapping 3 AVF procedure >>ASSESSMENT AND PLAN FOR HYPERTENSIVE RENAL DISEASE WITH RENAL FAILURE WRITTEN ON 05/03/2023 2:37 PM BY PRESTON KAHN BP consistently elevated SBP 140-160s Advised pt to bring up BP with corporate services manager at next dialysis session for recommendations Assessment & Plan (05/01/2023 11:05 AM EST): Continues with dialysis 3 times per week Tolerated most recent session without issue Monitor Assessment & Plan (04/30/2023 3:51 PM EST): 2 dialysis sessions without issue since hospital discharge Continue current med regimen Monitor Assessment & Plan (05/25/2023 10:01 AM EST): >>ASSESSMENT AND PLAN FOR STAGE 5 CHRONIC KIDNEY DISEASE ON CHRONIC DIALYSIS (FORMERLY [facility]) WRITTEN ON 04/24/2023 9:52 AM BY IVETTE ESPARZA MD Sunday, , Sunday dialysis Pt to f/u with nephrology at dialysis - has questions on potassium, BP Continue current medications >>ASSESSMENT AND PLAN FOR HYPERTENSIVE RENAL DISEASE WITH RENAL FAILURE WRITTEN ON 04/24/2023 9:52 AM BY IVETTE ESPARZA MD BP elevated today Was told he might need to increase his hydralazine to QID from TID Advised to discuss further with nephrology Assessment & Plan (04/23/2023 4:09 PM EST): Attending dialysis consistently Continue current meds Advised to discuss K+, BP with nephro 05/21 vein mapping 05/24 AVF procedure Assessment & Plan (05/25/2023 10:01 AM EST): >>ASSESSMENT AND PLAN FOR STAGE 5 CHRONIC KIDNEY DISEASE ON CHRONIC DIALYSIS ([facility]) WRITTEN ON 04/20/2023 11:30 AM BY ZARA LOZANO NP Unchanged, dialysis three times a week Fistula evaluation/procedure scheduled >>ASSESSMENT AND PLAN FOR HYPERTENSIVE RENAL DISEASE WITH RENAL FAILURE WRITTEN ON 04/20/2023 11:29 AM BY ZARA LOZANO NP Last 3 BP Readings: Date: BP: 04/20/2023 112/64 04/19/2023 137/75 04/18/2023 134/76 Lab Results Component Value Date NA 139 08/07/2022 K 4.2 08/07/2022 CHLORIDE 97 (L) 08/07/2022 CALCIUM 9.6 08/07/2022 BUN 44 (H) 08/07/2022 BUNCREAT 17 11/13/2018 EGFR 10 (L) 08/07/2022 CREATININE 6.18 (H) 08/07/2022 PROTEIN 7.8 08/07/2022 ALBUMIN 4.6 08/07/2022 GLOBULIN 3.2 08/07/2022 AGRATIO 1.2 2018 AST 18 08/07/2022 ALT 10 08/07/2022 ALKPHOS 148 (H) 08/07/2022 BILIRUBIN 0.2 08/07/2022 GLUCOSE 96 08/07/2022 BP well controlled Continue to monitor Assessment & Plan (04/19/2023 3:25 PM EST): Continues with dialysis 3 times per week Continue current meds 05/21 vein mapping 05/24 AVF procedure Assessment & Plan (04/17/2023 1:01 PM EST): Continues with dialysis 3 times per week Hoping to switch from CVC to AV fistula access, will address with nephrology BP well-controlled Continue current meds Assessment & Plan (04/16/2023 11:55 AM EST): Continues with dialysis 3 times per week BP well-controlled today Continue current med regimen Assessment & Plan (05/25/2023 10:01 AM EST): >>ASSESSMENT AND PLAN FOR STAGE 5 CHRONIC KIDNEY DISEASE ON CHRONIC DIALYSIS ([facility]) WRITTEN ON 04/13/2023 11:49 AM BY ZARA LOZANO NP Remains on dialysis three times a week BP stable today >>ASSESSMENT AND PLAN FOR HYPERTENSIVE RENAL DISEASE WITH RENAL FAILURE WRITTEN ON 04/13/2023 11:48 AM BY ZARA LOZANO NP Last 3 BP Readings: Date: BP: 04/13/2023 128/73 04/12/2023 157/98 04/11/2023 136/66 Lab Results Component Value Date NA 139 08/07/2022 K 4.2 08/07/2022 CHLORIDE 97 (L) 08/07/2022 CALCIUM 9.6 08/07/2022 BUN 44 (H) 08/07/2022 BUNCREAT 17 11/13/2018 EGFR 10 (L) 08/07/2022 CREATININE 6.18 (H) 08/07/2022 PROTEIN 7.8 08/07/2022 ALBUMIN 4.6 08/07/2022 GLOBULIN 3.2 08/07/2022 AGRATIO 1.2 2018 AST 18 08/07/2022 ALT 10 08/07/2022 ALKPHOS 148 (H) 08/07/2022 BILIRUBIN 0.2 08/07/2022 GLUCOSE 96 08/07/2022 BP well controlled Continue with current regimen Counseled low salt diet Continue to monitor Assessment & Plan (04/12/2023 10:25 AM EST): Elevated BP today, but asymptomatic and weight is down from 04/10/23 Has dialysis today, after which his blood pressure usually drops Consider increasing hydralane if elevation persists Encouraged smoking cessation Assessment & Plan (05/25/2023 10:01 AM EST): >>ASSESSMENT AND PLAN FOR STAGE 5 CHRONIC KIDNEY DISEASE ON CHRONIC DIALYSIS ([facility]) WRITTEN ON 04/10/2023 11:48 AM BY PRESTON KAHN Consistent with dialysis // BP labile, high today, asymptomatic, will recheck shortly Encouraged pt to discuss AV fistula with nephro at next session >>ASSESSMENT AND PLAN FOR HYPERTENSIVE RENAL DISEASE WITH RENAL FAILURE WRITTEN ON 04/10/2023 11:49 AM BY PRESTON KAHN BP high today, asymptomatic, has been labile Possibly 2/2 high salt intake yesterday Recheck BP and monitor Red flag sxs reviewed and pt will alert staff Assessment & Plan (04/06/2023 10:36 AM EST): Attending dialysis // evenings consistently BP labile, WNL today, asymptomatic Monitor closely Motivated to go to dialysis consistently to get onto kidney transplant wait list Assessment & Plan (04/05/2023 12:09 PM EST): Attending dialysis BP slightly elevated today, but asymptomatic Continue to monitor closely Assessment & Plan (04/04/2023 12:15 PM EST): Continues dialysis, PT-1 rides arranged Continue current med regimen Assessment & Plan (04/03/2023 11:15 AM EST): //Sunday dialysis Continue current med regimen Assessment & Plan (03/30/2023 2:26 PM EST): Consistent with dialysis attendance again with decreased drinking , will support at [facility] Assessment & Plan (05/25/2023 10:01 AM EST): >>ASSESSMENT AND PLAN FOR STAGE 5 CHRONIC KIDNEY DISEASE ON CHRONIC DIALYSIS ([facility]) WRITTEN ON 03/27/2023 5:20 PM BY PRESTON KAHN Inconsistent dialysis attendance recently 2/2 depression per patient, now attending regularly since MDD improved on new meds T/Th/Sa dialysis Continue current med regimen >>ASSESSMENT AND PLAN FOR HYPERTENSIVE RENAL DISEASE WITH RENAL FAILURE WRITTEN ON 03/27/2023 5:22 PM BY PRESTON KAHN Borderline hypotensive today, pt reports consistent lows during hospitalization with reductions in hydralazine doses and other changes Continue current meds Patient agrees to f/u at [facility] 03/30 and bring med list to do med reconciliation with this provider Assessment & Plan (09/27/2022 1:41 PM EDT): Stable while on dialysis Continue T/Th/Sa sessions Rides are set up Klonopin PRN before sessions for anxiety Assessment & Plan (09/25/2022 11:20 AM EDT): Missed appts recently d/t severe depression, funds, back to consistent attendance Klonopin PRN for anxiety before dialysis sessions Assessment & Plan (05/25/2023 10:01 AM EST): >>ASSESSMENT AND PLAN FOR STAGE 5 CHRONIC KIDNEY DISEASE ON CHRONIC DIALYSIS ([facility]) WRITTEN ON 09/22/2022 5:31 PM BY ZARA THOMPSON NP Missed dialysis last night d/t no transportation All set to have dialysis tomorrow Prescribed klonopin prn prior to dialysis >>ASSESSMENT AND PLAN FOR HYPERTENSIVE RENAL DISEASE WITH RENAL FAILURE WRITTEN ON 09/22/2022 5:32 PM BY ZARA THOMPSON NP Last 3 BP Readings: Date: BP: 09/22/2022 152/88 09/21/2022 138/82 09/20/2022 100/60 Lab Results Component Value Date NA 139 08/07/2022 K 4.2 08/07/2022 CHLORIDE 97 (L) 08/07/2022 C02 30 08/07/2022 CALCIUM 9.6 08/07/2022 BUN 44 (H) 08/07/2022 BUNCREAT 17 11/13/2018 EGFR 10 (L) 08/07/2022 CREATININE 6.18 (H) 08/07/2022 PROTEIN 7.8 08/07/2022 ALBUMIN 4.6 08/07/2022 GLOBULIN 3.2 08/07/2022 AGRATIO 1.2 2018 AST 18 08/07/2022 ALT 10 08/07/2022 ALKPHOS 148 (H) 08/07/2022 BILIRUBIN 0.2 08/07/2022 GLUCOSE 96 08/07/2022 BP mildly elevated No red flags on exam Continue with current regimen Counseled low salt diet, encouraged physical activity Continue to reassess BP while in [facility] Assessment & Plan (09/21/2022 2:36 PM EDT): Attending dialysis consistently again 3 times per week Klonopin PRN before dialysis sessions as rx'd 10/16 fistula appointment Assessment & Plan (09/20/2022 2:24 PM EDT): Asymptomatic Back to consistent dialysis attendance Continue current meds Klonopin PRN before dialysis session Assessment & Plan (09/19/2022 3:14 PM EDT): Appears stable Continue dialysis 3 time per week regimen Klonopin PRN for anxiety before dialysis appointments Assessment & Plan (05/25/2023 10:01 AM EST): >>ASSESSMENT AND PLAN FOR STAGE 5 CHRONIC KIDNEY DISEASE ON CHRONIC DIALYSIS ([facility]) WRITTEN ON 09/18/2022 2:45 PM BY PRESTON KAHN Missed 1 dialysis session last week Planning to be consistent with sessions again Klonopin PRN for anxiety before dialysis >>ASSESSMENT AND PLAN FOR HYPERTENSIVE RENAL DISEASE WITH RENAL FAILURE WRITTEN ON 09/18/2022 2:46 PM BY PRESTON KAHN BP at goal today, asx Continue med regimen and dialysis Monitor Last 3 BP Readings: Date: BP: 09/18/2022 108/68 09/15/2022 148/84 09/14/2022 118/68 Assessment & Plan (09/15/2022 11:17 AM EDT): Missed dialysis last night Plans to attend tomorrow Aware of importance of attending dialysis treatment Assessment & Plan (09/14/2022 12:51 PM EDT): Pt planning on missing dialysis appt today, but going Sunday Importance of dialysis on CKD and risks of stopping discussed Assessment & Plan (09/13/2022 2:38 PM EDT): Appears stable Attending dialysis consistently Klonopin PRN anxiety before dialysis sessions Assessment & Plan (05/25/2023 10:01 AM EST): >>ASSESSMENT AND PLAN FOR STAGE 5 CHRONIC KIDNEY DISEASE ON CHRONIC DIALYSIS ([facility]) WRITTEN ON 09/08/2022 11:15 AM BY ZARA THOMPSON NP Remains on dialysis three times per week Rx'd clonazepam prior to attending sessions d/t anxiety >>ASSESSMENT AND PLAN FOR HYPERTENSIVE RENAL DISEASE WITH RENAL FAILURE WRITTEN ON 09/08/2022 11:17 AM BY ZARA THOMPSON NP Last 3 BP Readings: Date: BP: 09/08/2022 102/63 09/07/2022 150/86 09/06/2022 96/64 Lab Results Component Value Date NA 139 08/07/2022 K 4.2 08/07/2022 CHLORIDE 97 (L) 08/07/2022 C02 30 08/07/2022 CALCIUM 9.6 08/07/2022 BUN 44 (H) 08/07/2022 BUNCREAT 17 11/13/2018 EGFR 10 (L) 08/07/2022 CREATININE 6.18 (H) 08/07/2022 PROTEIN 7.8 08/07/2022 ALBUMIN 4.6 08/07/2022 GLOBULIN 3.2 08/07/2022 AGRATIO 1.2 2018 AST 18 08/07/2022 ALT 10 08/07/2022 ALKPHOS 148 (H) 08/07/2022 BILIRUBIN 0.2 08/07/2022 GLUCOSE 96 08/07/2022 BP stable, on lower range Labile BP 2/2 dialysis treatment Denies any symptoms Continue with current regimen at this time Continue monitoring BP Assessment & Plan (05/25/2023 10:01 AM EST): >>ASSESSMENT AND PLAN FOR STAGE 5 CHRONIC KIDNEY DISEASE ON CHRONIC DIALYSIS ([facility]) WRITTEN ON 09/07/2022 3:55 PM BY PRESTON KAHN Appears stable Attending dialysis consistently Klonopin PRN before dialysis sessions >>ASSESSMENT AND PLAN FOR HYPERTENSIVE RENAL DISEASE WITH RENAL FAILURE WRITTEN ON 09/07/2022 3:57 PM BY PRESTON KAHN BP labile Push fluids Continue current meds Monitor Assessment & Plan (05/25/2023 10:01 AM EST): >>ASSESSMENT AND PLAN FOR STAGE 5 CHRONIC KIDNEY DISEASE ON CHRONIC DIALYSIS ([facility]) WRITTEN ON 09/07/2022 1:07 PM BY PRESTON KAHN Appears stable Attending dialysis consistently Klonopin PRN before dialysis sessions for anxiety >>ASSESSMENT AND PLAN FOR HYPERTENSIVE RENAL DISEASE WITH RENAL FAILURE WRITTEN ON 09/07/2022 1:09 PM BY PRESTON KAHN BP labile recently No red flag sxs Continue current meds, may need to increase hydralazine back to QID if elevated BP persists Monitor Assessment & Plan (09/05/2022 9:43 AM EDT): BP elevated today, low yesterday, though asymptomatic Will continue to monitor and keep HTN meds as they are Continue dialysis Assessment & Plan (09/01/2022 10:11 AM EDT): Dialysis last night Doing well with this BP labile,being monitored Continue with current regimen Assessment & Plan (08/29/2022 11:51 AM EDT): Doing well with dialysis. BP is labile, including lows, so would avoid increase of medication at this time. Continue regimen Assessment & Plan (05/25/2023 10:01 AM EST): >>ASSESSMENT AND PLAN FOR STAGE 5 CHRONIC KIDNEY DISEASE ON CHRONIC DIALYSIS ([facility]) WRITTEN ON 08/28/2022 2:31 PM BY PRESTON KAHN Attending dialysis consistently Considering AV fistula procedure, undecided at present Klonopin PRN for anxiety before dialysis sessions >>ASSESSMENT AND PLAN FOR HYPERTENSIVE RENAL DISEASE WITH RENAL FAILURE WRITTEN ON 08/28/2022 2:32 PM BY PRESTON KAHN Unchanged, labile, asymptomatic Continue current med regimen Monitor Last 3 BP Readings: Date: BP: 08/28/2022 147/79 08/25/2022 108/64 08/24/2022 124/70 Assessment & Plan (05/25/2023 10:01 AM EST): >>ASSESSMENT AND PLAN FOR STAGE 5 CHRONIC KIDNEY DISEASE ON CHRONIC DIALYSIS ([facility]) WRITTEN ON 08/25/2022 3:58 PM BY PRESTON KAHN Attending dialysis consistently Considering AV fistula procedure, undecided at present Klonopin PRN for anxiety before dialysis sessions >>ASSESSMENT AND PLAN FOR HYPERTENSIVE RENAL DISEASE WITH RENAL FAILURE WRITTEN ON 08/25/2022 3:58 PM BY PRESTON KAHN BP labile, at goal past 3 readings Continue current med regimen Monitor Last 3 BP Readings: Date: BP: 08/25/2022 108/64 08/24/2022 124/70 08/23/2022 92/56 Assessment & Plan (05/25/2023 10:01 AM EST): >>ASSESSMENT AND PLAN FOR STAGE 5 CHRONIC KIDNEY DISEASE ON CHRONIC DIALYSIS ([facility]) WRITTEN ON 08/23/2022 3:16 PM BY PRESTON KAHN Attending dialysis appts consistently Klonopin PRN for anxiety before dialysis sessions >>ASSESSMENT AND PLAN FOR HYPERTENSIVE RENAL DISEASE WITH RENAL FAILURE WRITTEN ON 08/23/2022 3:18 PM BY PRESTON KAHN BP labile, low this morning, likely iso poor fluid intake Push fluids Continue current meds Assessment & Plan (05/25/2023 10:01 AM EST): >>ASSESSMENT AND PLAN FOR STAGE 5 CHRONIC KIDNEY DISEASE ON CHRONIC DIALYSIS ([facility]) WRITTEN ON 08/21/2022 7:05 PM BY PRESTON KAHN Attending 3 times per week Encouraged discussion with corporate services manager re: AV fistula procedure Continue current meds Klonopin PRN for anxiety before dialysis sessions >>ASSESSMENT AND PLAN FOR HYPERTENSIVE RENAL DISEASE WITH RENAL FAILURE WRITTEN ON 08/21/2022 7:06 PM BY PRESTON KAHN BP stable and at goal recently Continue current med regimen Monitor Assessment & Plan (05/25/2023 10:01 AM EST): >>ASSESSMENT AND PLAN FOR STAGE 5 CHRONIC KIDNEY DISEASE ON CHRONIC DIALYSIS ([facility]) WRITTEN ON 08/14/2022 3:03 PM BY PRESTON KAHN Attending dialysis appts consistently Continue current meds Klonopin 0.5 mg PRN for anxiety before dialysis sessions >>ASSESSMENT AND PLAN FOR HYPERTENSIVE RENAL DISEASE WITH RENAL FAILURE WRITTEN ON 08/14/2022 3:05 PM BY PRESTON KAHN BP elevated today, BP close to goal on repeat BP check Elevation may be d/t increased stress Consider increase hydralazine frequency to QID, previously decreased iso dizziness Assessment & Plan (05/25/2023 10:01 AM EST): >>ASSESSMENT AND PLAN FOR STAGE 5 CHRONIC KIDNEY DISEASE ON CHRONIC DIALYSIS ([facility]) WRITTEN ON 08/11/2022 1:44 PM BY PRESTON KAHN Attending dialysis regularly Continue klonopin PRN before dialysis sessions for anxiety >>ASSESSMENT AND PLAN FOR HYPERTENSIVE RENAL DISEASE WITH RENAL FAILURE WRITTEN ON 08/11/2022 1:45 PM BY PRESTON KAHN Elevated BP, asymptomatic Continue current meds, may need to increase hydralazine back to QID, advised pt to discuss with neprho Last 3 BP Readings: Date: BP: 08/11/2022 142/78 08/10/2022 146/86 08/09/2022 111/60 Assessment & Plan (05/25/2023 10:01 AM EST): >>ASSESSMENT AND PLAN FOR STAGE 5 CHRONIC KIDNEY DISEASE ON CHRONIC DIALYSIS ([facility]) WRITTEN ON 08/11/2022 11:27 AM BY PRESTON KAHN Consistent attendance with dialysis BP a bit labile recently, asx, recent stress may explain fluctuations Continue current meds >>ASSESSMENT AND PLAN FOR HYPERTENSIVE RENAL DISEASE WITH RENAL FAILURE WRITTEN ON 08/11/2022 11:28 AM BY PRESTON KAHN BP somewhat labile, pt endorses significant stress recently Asymptomatic Recheck BP this afternoon and before/after dialysis May need med adjustment Continue current med regimen Monitor Assessment & Plan (08/11/2022 10:46 AM EDT): Attending dialysis regularly BP 112/60 after dialysis last night, mildly elevated today. Would recommend maintaining current BP regimen. Assessment & Plan (05/25/2023 10:01 AM EST): >>ASSESSMENT AND PLAN FOR STAGE 5 CHRONIC KIDNEY DISEASE ON CHRONIC DIALYSIS ([facility]) WRITTEN ON 08/09/2022 10:17 AM BY ZARA THOMPSON NP Unchanged, dialysis three times per week Continue follow up with nephrology as scheduled >>ASSESSMENT AND PLAN FOR HYPERTENSIVE RENAL DISEASE WITH RENAL FAILURE WRITTEN ON 08/09/2022 10:17 AM BY ZARA THOMPSON NP Last 3 BP Readings: Date: BP: 08/09/2022 111/60 08/08/2022 138/82 08/07/2022 112/70 Lab Results Component Value Date NA 139 08/07/2022 K 4.2 08/07/2022 CHLORIDE 97 (L) 08/07/2022 C02 30 08/07/2022 CALCIUM 9.6 08/07/2022 BUN 44 (H) 08/07/2022 BUNCREAT 17 11/13/2018 EGFR 10 (L) 08/07/2022 CREATININE 6.18 (H) 08/07/2022 PROTEIN 7.8 08/07/2022 ALBUMIN 4.6 08/07/2022 GLOBULIN 3.2 08/07/2022 AGRATIO 1.2 2018 AST 18 08/07/2022 ALT 10 08/07/2022 ALKPHOS 148 (H) 08/07/2022 BILIRUBIN 0.2 08/07/2022 GLUCOSE 96 08/07/2022 BP well controlled Continue with current regimen Counseled low salt diet, encouraged physical activity Continue monitoring Assessment & Plan (05/25/2023 10:01 AM EST): >>ASSESSMENT AND PLAN FOR STAGE 5 CHRONIC KIDNEY DISEASE ON CHRONIC DIALYSIS ([facility]) WRITTEN ON 08/07/2022 3:29 PM BY PRESTON KAHN Worsening anemia, will discuss with his corporate services manager Continue dialysis, meds Klonopin PRN before dialysis sessions >>ASSESSMENT AND PLAN FOR HYPERTENSIVE RENAL DISEASE WITH RENAL FAILURE WRITTEN ON 08/07/2022 3:29 PM BY PRESTON KAHN BP at goal Continue current meds Last 3 BP Readings: Date: BP: 08/07/2022 112/70 08/04/2022 104/68 08/03/2022 142/84 Assessment & Plan (05/25/2023 10:01 AM EST): >>ASSESSMENT AND PLAN FOR STAGE 5 CHRONIC KIDNEY DISEASE ON CHRONIC DIALYSIS ([facility]) WRITTEN ON 08/04/2022 10:21 AM BY PRESTON KAHN Stable Continue dialysis, current meds BP at goal currently Klonopin PRN before dialysis sessions for anxiety >>ASSESSMENT AND PLAN FOR HYPERTENSIVE RENAL DISEASE WITH RENAL FAILURE WRITTEN ON 08/04/2022 10:22 AM BY PRESTON KAHN Labile, at goal today Continue current meds Advised pt to speak with his corporate services manager regarding significant fluctuations in BPs Assessment & Plan (05/25/2023 10:01 AM EST): >>ASSESSMENT AND PLAN FOR STAGE 5 CHRONIC KIDNEY DISEASE ON CHRONIC DIALYSIS ([facility]) WRITTEN ON 08/02/2022 3:51 PM BY PRESTON KAHN Stable on dialysis Continue treatments 3 times per week with [facility] Continue current meds Klonopin 0.5 mg PRN before treatments >>ASSESSMENT AND PLAN FOR HYPERTENSIVE RENAL DISEASE WITH RENAL FAILURE WRITTEN ON 08/02/2022 3:53 PM BY PRESTON KAHN BP at goal Continue current meds Monitor Assessment & Plan (05/25/2023 10:01 AM EST): >>ASSESSMENT AND PLAN FOR STAGE 5 CHRONIC KIDNEY DISEASE ON CHRONIC DIALYSIS ([facility]) WRITTEN ON 08/02/2022 2:04 PM BY PRESTON KAHN Continue dialysis three times weekly Continue current meds Advised pt speak with nephro at next dialysis appt about meds and dizziness >>ASSESSMENT AND PLAN FOR HYPERTENSIVE RENAL DISEASE WITH RENAL FAILURE WRITTEN ON 08/02/2022 2:02 PM BY PRESTON KAHN Labile BP, dizziness resolved with hydralazine dose change from QID to TID, however resting BP may be above goal Advised speaking with nephro about BP goal and meds Continue current med regimen Assessment & Plan (08/01/2022 11:27 AM EDT): Tolerating dialysis well BP is above goal today. He is on a lower dose of hydralazine d/t h/o hypotension Continue regimen. Will continue to monitor prior to any further changes Assessment & Plan (05/25/2023 10:01 AM EST): >>ASSESSMENT AND PLAN FOR STAGE 5 CHRONIC KIDNEY DISEASE ON CHRONIC DIALYSIS ([facility]) WRITTEN ON 07/31/2022 2:01 PM BY PRESTON KAHN Stable Continue [facility]vel[facility] Continue dialysis >>ASSESSMENT AND PLAN FOR HYPERTENSIVE RENAL DISEASE WITH RENAL FAILURE WRITTEN ON 07/31/2022 2:02 PM BY PRESTON KAHN Mild elevation today Hydralazine reduced to tid iso low bp and dizziness last week Continue current med regimen Monitor bp, may need to increase hydralazine to get back to goal if asx Assessment & Plan (07/28/2022 3:57 PM EDT): Stable, asx Continue current med, dialysis Assessment & Plan (07/26/2022 3:23 PM EDT): Single low BP episode after dialysis yesterday, otherwise tolerating dialysis well Continue current BP regimen Monitor BP Discussing fistula surgery with renal Assessment & Plan (07/25/2022 9:31 AM EDT): Tolerating dialysis well, BP at goal, asymptomatic. Continue to attend dialysis. He will have a conversation with renal about getting fistula surgery Assessment & Plan (05/25/2023 10:01 AM EST): >>ASSESSMENT AND PLAN FOR STAGE 5 CHRONIC KIDNEY DISEASE ON CHRONIC DIALYSIS ([facility]) WRITTEN ON 07/24/2022 10:45 PM BY PRESTON KAHN Stable Continue dialysis Continue current med regimen Klonopin PRN anxiety before treatments >>ASSESSMENT AND PLAN FOR HYPERTENSIVE RENAL DISEASE WITH RENAL FAILURE WRITTEN ON 07/24/2022 10:45 PM BY PRESTON KAHN BP at goal Continue current med regimen Last 3 BP Readings: Date: BP: 07/24/2022 120/71 07/21/2022 98/64 07/20/2022 117/68 Assessment & Plan (05/25/2023 10:01 AM EST): >>ASSESSMENT AND PLAN FOR STAGE 5 CHRONIC KIDNEY DISEASE ON CHRONIC DIALYSIS (FORMERLY [facility]) WRITTEN ON 07/21/2022 11:53 AM BY ZARA THOMPSON NP Remains stable Doing very well Continue with dialysis regimen >>ASSESSMENT AND PLAN FOR HYPERTENSIVE RENAL DISEASE WITH RENAL FAILURE WRITTEN ON 07/21/2022 11:54 AM BY ZARA THOMPSON NP Last 3 BP Readings: Date: BP: 07/21/2022 98/64 07/20/2022 117/68 07/19/2022 126/70 Lab Results Component Value Date NA 142 03/31/2022 K 5.0 03/31/2022 CHLORIDE 102 03/31/2022 C02 30 03/31/2022 CALCIUM 9.3 03/31/2022 BUN 32 (H) 03/31/2022 BUNCREAT 17 11/13/2018 EGFR 11 (L) 03/31/2022 CREATININE 5.61 (H) 03/31/2022 PROTEIN 8.2 (H) 03/31/2022 ALBUMIN 4.9 03/31/2022 GLOBULIN 3.3 03/31/2022 AGRATIO 1.2 2018 AST 24 03/31/2022 ALT 10 03/31/2022 ALKPHOS 163 (H) 03/31/2022 BILIRUBIN 0.2 03/31/2022 GLUCOSE 121 (H) 03/31/2022 BP well controlled, on lower end today but asx Continue with current regimen Counseled low salt diet, encouraged physical activity Reassess at next in clinic appt Assessment & Plan (05/25/2023 10:01 AM EST): >>ASSESSMENT AND PLAN FOR STAGE 5 CHRONIC KIDNEY DISEASE ON CHRONIC DIALYSIS ([facility]) WRITTEN ON 07/20/2022 2:48 PM BY PRESTON KAHN Stable, asx Continue dialysis regimen Klonopin 0.5 mg prior to dialysis treatments for anxiety >>ASSESSMENT AND PLAN FOR HYPERTENSIVE RENAL DISEASE WITH RENAL FAILURE WRITTEN ON 07/20/2022 2:50 PM BY PRESTON KAHN BP at goal Continue current BP regimen Monitor Assessment & Plan (05/25/2023 10:01 AM EST): >>ASSESSMENT AND PLAN FOR STAGE 5 CHRONIC KIDNEY DISEASE ON CHRONIC DIALYSIS ([facility]) WRITTEN ON 07/17/2022 10:43 AM BY STONE POWELL, PA Stable Attending dialysis consistently again, 3 times / wk Continue current meds Klonopin PRN before dialysis sessions for anxiety >>ASSESSMENT AND PLAN FOR HYPERTENSIVE RENAL DISEASE WITH RENAL FAILURE WRITTEN ON 07/17/2022 10:44 AM BY PRESTON KAHN BP well-controlled on current meds Continue current HTN med regimen Monitor Assessment & Plan (05/25/2023 10:01 AM EST): >>ASSESSMENT AND PLAN FOR STAGE 5 CHRONIC KIDNEY DISEASE ON CHRONIC DIALYSIS ([facility]) WRITTEN ON 07/16/2022 9:49 PM BY PRESTON KAHN Unchanged Dialysis 3 times / week Continue current meds Set up [facility] Continue Klonopin for use for anxiety before dialysis appointments >>ASSESSMENT AND PLAN FOR HYPERTENSIVE RENAL DISEASE WITH RENAL FAILURE WRITTEN ON 07/16/2022 9:50 PM BY PRESTON KAHN Well-controlled Continue current med regimen Low sodium diet discussed Monitor Assessment & Plan (05/25/2023 10:01 AM EST): >>ASSESSMENT AND PLAN FOR STAGE 5 CHRONIC KIDNEY DISEASE ON CHRONIC DIALYSIS ([facility]) WRITTEN ON 07/14/2022 11:51 AM BY ZARA THOMPSON NP Continues with dialysis three times a week, VSS No changes to current regimen, continue follow up with nephrology >>ASSESSMENT AND PLAN FOR HYPERTENSIVE RENAL DISEASE WITH RENAL FAILURE WRITTEN ON 07/14/2022 11:50 AM BY ZARA THOMPSON NP Last 3 BP Readings: Date: BP: 07/14/2022 112/68 07/13/2022 122/74 07/12/2022 134/88 Lab Results Component Value Date NA 142 03/31/2022 K 5.0 03/31/2022 CHLORIDE 102 03/31/2022 C02 30 03/31/2022 CALCIUM 9.3 03/31/2022 BUN 32 (H) 03/31/2022 BUNCREAT 17 11/13/2018 EGFR 11 (L) 03/31/2022 CREATININE 5.61 (H) 03/31/2022 PROTEIN 8.2 (H) 03/31/2022 ALBUMIN 4.9 03/31/2022 GLOBULIN 3.3 03/31/2022 AGRATIO 1.2 2018 AST 24 03/31/2022 ALT 10 03/31/2022 ALKPHOS 163 (H) 03/31/2022 BILIRUBIN 0.2 03/31/2022 GLUCOSE 121 (H) 03/31/2022 BP well controlled Continue with current regimen Counseled low salt diet, encouraged physical activity Continue monitoring Assessment & Plan (05/25/2023 10:01 AM EST): >>ASSESSMENT AND PLAN FOR STAGE 5 CHRONIC KIDNEY DISEASE ON CHRONIC DIALYSIS ([facility]) WRITTEN ON 07/13/2022 4:14 PM BY PRESTON KAHN Stable Continue T//Sun dialysis Continue current meds >>ASSESSMENT AND PLAN FOR HYPERTENSIVE RENAL DISEASE WITH RENAL FAILURE WRITTEN ON 07/13/2022 4:15 PM BY PRESTON KAHN BP well-controlled Continue current HTN regimen Last 3 BP Readings: Date: BP: 07/13/2022 122/74 07/12/2022 134/88 07/11/2022 160/90 Assessment & Plan (05/02/2022 5:48 PM EST): Refusing dialysis, continue conversation Continue current meds Monitor K, repeat BMPs Assessment & Plan (05/25/2023 10:01 AM EST): >>ASSESSMENT AND PLAN FOR STAGE 5 CHRONIC KIDNEY DISEASE ON CHRONIC DIALYSIS ([facility]) WRITTEN ON 04/07/2022 2:14 PM BY PRESTON KAHN Appears stable Continue dialysis 3 times / week Working to get [facility] for future appointments >>ASSESSMENT AND PLAN FOR HYPERTENSIVE RENAL DISEASE WITH RENAL FAILURE WRITTEN ON 04/07/2022 2:13 PM BY PRESTON KAHN BP at goal recently Continue current meds Assessment & Plan (04/07/2022 10:57 AM EST): Stable on dialysis BP remains well controlled Potassium within normal limits Assessment & Plan (05/25/2023 10:01 AM EST): >>ASSESSMENT AND PLAN FOR STAGE 5 CHRONIC KIDNEY DISEASE ON CHRONIC DIALYSIS ([facility]) WRITTEN ON 04/03/2022 2:49 PM BY PRESTON KAHN Stable on dialysis Continue dialysis T//Sa Continue current meds >>ASSESSMENT AND PLAN FOR HYPERTENSIVE RENAL DISEASE WITH RENAL FAILURE WRITTEN ON 04/03/2022 2:50 PM BY PRESTON KAHN BP well-controlled Continue current meds Last 3 BP Readings: Date: BP: 04/03/2022 131/81 03/31/2022 116/70 03/30/2022 106/68 Assessment & Plan (05/25/2023 10:01 AM EST): >>ASSESSMENT AND PLAN FOR STAGE 5 CHRONIC KIDNEY DISEASE ON CHRONIC DIALYSIS ([facility]) WRITTEN ON 03/31/2022 11:47 AM BY ZARA THOMPSON NP Dialysis last night VSS, No red flags Counseled on staying well hydrated Continue with dialysis as scheduled >>ASSESSMENT AND PLAN FOR HYPERTENSIVE RENAL DISEASE WITH RENAL FAILURE WRITTEN ON 03/31/2022 11:48 AM BY ZARA THOMPSON NP BP well controlled Continue with current med regimen Counseled on low salt diet. .Last 3 BP Readings: Date: BP: 03/31/2022 116/70 03/30/2022 106/68 03/29/2022 133/84 Assessment & Plan (05/25/2023 10:01 AM EST): >>ASSESSMENT AND PLAN FOR STAGE 5 CHRONIC KIDNEY DISEASE ON CHRONIC DIALYSIS ([facility]) WRITTEN ON 03/30/2022 3:44 PM BY PRESTON KAHN Stable Continue dialysis 3 times / week 03/31 labs >>ASSESSMENT AND PLAN FOR HYPERTENSIVE RENAL DISEASE WITH RENAL FAILURE WRITTEN ON 03/30/2022 3:45 PM BY PRESTON KAHN BP well-controlled on current med Continue current med regimen Last 3 BP Readings: Date: BP: 03/30/2022 106/68 03/29/2022 133/84 03/28/2022 114/70 Assessment & Plan (03/29/2022 12:27 PM EST): Stable Continue dialysis 3 times / week Continue current med regimen Assessment & Plan (05/25/2023 10:01 AM EST): >>ASSESSMENT AND PLAN FOR STAGE 5 CHRONIC KIDNEY DISEASE ON CHRONIC DIALYSIS ([facility]) WRITTEN ON 03/24/2022 9:08 AM BY ZARA THOMPSON NP Stable, had dialysis tx last night doing well CMP pending, last 02/19 Will f/u with results >>ASSESSMENT AND PLAN FOR HYPERTENSIVE RENAL DISEASE WITH RENAL FAILURE WRITTEN ON 03/24/2022 9:09 AM BY ZARA THOMPSON NP BP remains very well controlled Continue with current regimen Last 3 BP Readings: Date: BP: 03/24/2022 108/74 03/23/2022 129/73 03/22/2022 98/60 Assessment & Plan (05/25/2023 10:01 AM EST): >>ASSESSMENT AND PLAN FOR STAGE 5 CHRONIC KIDNEY DISEASE ON CHRONIC DIALYSIS ([facility]) WRITTEN ON 03/22/2022 11:42 AM BY ZARA THOMPSON NP Stable On dialysis 3x/week, tolerating well >>ASSESSMENT AND PLAN FOR HYPERTENSIVE RENAL DISEASE WITH RENAL FAILURE WRITTEN ON 03/22/2022 11:43 AM BY ZARA THOMPSON NP Stable Continue with current meds Assessment & Plan (03/16/2022 2:45 PM EST): Stable Continue dialysis 3 x / week Continue current meds Assessment & Plan (03/15/2022 3:45 PM EST): BP trending to hypotensive recently Occasional dizziness right after dialysis Increase water intake, decrease coffee Monitor Assessment & Plan (05/25/2023 10:01 AM EST): >>ASSESSMENT AND PLAN FOR STAGE 5 CHRONIC KIDNEY DISEASE ON CHRONIC DIALYSIS ([facility]) WRITTEN ON 03/13/2022 2:57 PM BY PRESTON KAHN Stable Continue dialysis T// Pt will ask corporate services manager about home dialysis Pt to reschedule [facility] appt >>ASSESSMENT AND PLAN FOR HYPERTENSIVE RENAL DISEASE WITH RENAL FAILURE WRITTEN ON 03/13/2022 2:58 PM BY PRESTON KAHN Stable Continue current meds Assessment & Plan (05/25/2023 10:01 AM EST): >>ASSESSMENT AND PLAN FOR STAGE 5 CHRONIC KIDNEY DISEASE ON CHRONIC DIALYSIS ([facility]) WRITTEN ON 03/10/2022 2:12 PM BY PRESTON KAHN Stable Continue dialysis 3 times / week 03/13 [facility] appt, will set up all future rides to dialysis >>ASSESSMENT AND PLAN FOR HYPERTENSIVE RENAL DISEASE WITH RENAL FAILURE WRITTEN ON 03/10/2022 2:14 PM BY PRESTON KAHN Low BP today, asymptomatic Advised pt to clarify fluid intake instructions with dialysis provider, limit caffeinated beverages Assessment & Plan (05/25/2023 10:01 AM EST): >>ASSESSMENT AND PLAN FOR STAGE 5 CHRONIC KIDNEY DISEASE ON CHRONIC DIALYSIS ([facility]) WRITTEN ON 03/09/2022 1:16 PM BY PRESTON KAHN Stable on dialysis 3 x / week >>ASSESSMENT AND PLAN FOR HYPERTENSIVE RENAL DISEASE WITH RENAL FAILURE WRITTEN ON 03/09/2022 1:16 PM BY PRESTON KAHN BP WNL Continue current med regimen Assessment & Plan (05/25/2023 10:01 AM EST): >>ASSESSMENT AND PLAN FOR STAGE 5 CHRONIC KIDNEY DISEASE ON CHRONIC DIALYSIS ([facility]) WRITTEN ON 03/06/2022 3:18 PM BY PRESTON KAHN Stable Continue dialysis 3 times / week >>ASSESSMENT AND PLAN FOR HYPERTENSIVE RENAL DISEASE WITH RENAL FAILURE WRITTEN ON 03/06/2022 3:18 PM BY PRESTON KAHN Controlled Continue current med regimen Assessment & Plan (05/25/2023 10:01 AM EST): >>ASSESSMENT AND PLAN FOR STAGE 5 CHRONIC KIDNEY DISEASE ON CHRONIC DIALYSIS ([facility]) WRITTEN ON 03/03/2022 2:32 PM BY PRESTON KAHN Dialysis 3 times per week Working with dialysis provider to determine which meds and labs are still required >>ASSESSMENT AND PLAN FOR HYPERTENSIVE RENAL DISEASE WITH RENAL FAILURE WRITTEN ON 03/03/2022 2:33 PM BY PRESTON KAHN Well-controlled Continue current meds Assessment & Plan (05/25/2023 10:01 AM EST): >>ASSESSMENT AND PLAN FOR STAGE 5 CHRONIC KIDNEY DISEASE ON CHRONIC DIALYSIS ([facility]) WRITTEN ON 03/02/2022 4:09 PM BY PRESTON KAHN Stable Dialysis 3 times per week >>ASSESSMENT AND PLAN FOR HYPERTENSIVE RENAL DISEASE WITH RENAL FAILURE WRITTEN ON 03/02/2022 4:09 PM BY PRESTON KAHN BP WNL today Continue current meds Assessment & Plan (02/28/2022 11:53 AM EST): Currently tolerating dialysis three days per week very well. Port in R chest Continue to support Reconciled med list Assessment & Plan (05/25/2023 10:01 AM EST): >>ASSESSMENT AND PLAN FOR STAGE 5 CHRONIC KIDNEY DISEASE ON CHRONIC DIALYSIS ([facility]) WRITTEN ON 02/24/2022 11:22 AM BY ZARA THOMPSON NP Attending dialysis T-Th- evening Doing well, VSS >>ASSESSMENT AND PLAN FOR HYPERTENSIVE RENAL DISEASE WITH RENAL FAILURE WRITTEN ON 02/24/2022 11:23 AM BY ZARA THOMPSON NP BP stable Continue with current regimen Last 3 BP Readings: Date: BP: 02/24/2022 144/88 02/23/2022 142/78 02/22/2022 106/70 Assessment & Plan (05/25/2023 10:01 AM EST): >>ASSESSMENT AND PLAN FOR STAGE 5 CHRONIC KIDNEY DISEASE ON CHRONIC DIALYSIS ([facility]) WRITTEN ON 02/23/2022 3:07 PM BY PRESTON KAHN Stable, asx Dialysis 3 times / week PT-1 rides set F/u with nephro ? >>ASSESSMENT AND PLAN FOR HYPERTENSIVE RENAL DISEASE WITH RENAL FAILURE WRITTEN ON 02/23/2022 3:07 PM BY PRESTON KAHN Well-controlled Continue current meds Assessment & Plan (05/25/2023 10:01 AM EST): >>ASSESSMENT AND PLAN FOR STAGE 5 CHRONIC KIDNEY DISEASE ON CHRONIC DIALYSIS ([facility]) WRITTEN ON 02/21/2022 1:42 PM BY PRESTON KAHN Stable, asx Continue current meds Three times per week dialysis F/u scheduled with nephro scheduled ? >>ASSESSMENT AND PLAN FOR HYPERTENSIVE RENAL DISEASE WITH RENAL FAILURE WRITTEN ON 02/21/2022 1:45 PM BY PRESTON KAHN BP stable on med regiment Continue current meds Assessment & Plan (05/25/2023 10:01 AM EST): >>ASSESSMENT AND PLAN FOR STAGE 5 CHRONIC KIDNEY DISEASE ON CHRONIC DIALYSIS ([facility]) WRITTEN ON 02/20/2022 1:48 PM BY PRESTON KAHN Continue current meds Labs? Paperwork for emergency [facility] access submitted 02/15 T/Th/Sat dialysis at [facility] F/u with nephro >>ASSESSMENT AND PLAN FOR HYPERTENSIVE RENAL DISEASE WITH RENAL FAILURE WRITTEN ON 02/20/2022 1:53 PM BY PRESTON KAHN Stable, WNL Continue current meds Assessment & Plan (02/07/2022 5:42 PM EST): Pt to go to [facility] ER 02/11 for admission for starting dialysis Assessment & Plan (05/25/2023 10:01 AM EST): >>ASSESSMENT AND PLAN FOR STAGE 5 CHRONIC KIDNEY DISEASE ON CHRONIC DIALYSIS ([facility]) WRITTEN ON 02/03/2022 11:56 AM BY ZARA THOMPSON NP Refilled kayexalate Starting dialysis tomorrow at [facility] Agreeable to this,aware needs to have done Lab Results Component Value Date NA 138 01/09/2022 K 5.4 (H) 01/09/2022 C02 23 01/09/2022 ANIONGAP 17 01/09/2022 CALCIUM 8.4 (L) 01/09/2022 BUN 79 (H) 01/09/2022 BUNCREAT 17 11/13/2018 CREATININE 6.96 (H) 01/09/2022 GLUCOSE 84 01/09/2022 EGFR 8 (L) 01/09/2022 >>ASSESSMENT AND PLAN FOR HYPERTENSIVE RENAL DISEASE WITH RENAL FAILURE WRITTEN ON 02/03/2022 11:54 AM BY ZARA THOMPSON NP BP very well controlled Tolerating increase dose of carvedilol Lab Results Component Value Date NA 138 01/09/2022 K 5.4 (H) 01/09/2022 C02 23 01/09/2022 ANIONGAP 17 01/09/2022 CALCIUM 8.4 (L) 01/09/2022 BUN 79 (H) 01/09/2022 BUNCREAT 17 11/13/2018 CREATININE 6.96 (H) 01/09/2022 GLUCOSE 84 01/09/2022 EGFR 8 (L) 01/09/2022 Assessment & Plan (01/24/2022 12:31 PM EDT): Needs dialysis, pt resistant at present Nephro f/u? Continue kayexalate Restart bicarb ? Repeat BMP 01/23 Assessment & Plan (05/25/2023 10:01 AM EST): >>ASSESSMENT AND PLAN FOR STAGE 5 CHRONIC KIDNEY DISEASE ON CHRONIC DIALYSIS ([facility]) WRITTEN ON 01/23/2022 12:18 PM BY PRESTON KAHN Repeat BMP Continue kayexalate Restart bicarb? Nephro f/u encouraged, pt undecided >>ASSESSMENT AND PLAN FOR HYPERTENSIVE RENAL DISEASE WITH RENAL FAILURE WRITTEN ON 01/23/2022 12:19 PM BY PRESTON KAHN Poorly controlled Increase Coreg to 25 mg BID Assessment & Plan (01/21/2022 2:03 PM EDT): Repeat BMP 01/23 Continue Kayexalate Restart bicarb? Nephro f/u scheduled? Assessment & Plan (05/25/2023 10:01 AM EST): >>ASSESSMENT AND PLAN FOR STAGE 5 CHRONIC KIDNEY DISEASE ON CHRONIC DIALYSIS ([facility]) WRITTEN ON 01/16/2022 2:06 PM BY PRESTON KAHN Worsening kidney function, dialysis advised Continue kayexalate ? Should be on sodium bicarb Nephro f/u BMP monthly >>ASSESSMENT AND PLAN FOR HYPERTENSIVE RENAL DISEASE WITH RENAL FAILURE WRITTEN ON 01/16/2022 2:07 PM BY PRESTON KAHN Poorly controlled Continue amlodipine, carvedilol, hydralazine Assessment & Plan (01/10/2022 12:00 PM EDT): GFR stable with elevated K+. asymptomatic Restarted kayexalate conintue to monitor with weekly BMP Assessment & Plan (11/22/2021 10:59 PM EDT): Kidney function is unchanged Continue to consider dialysis as an option Counseled on smoking cessation and abstinence from etoh. Assessment & Plan (11/21/2021 1:35 PM EDT): Repeat BMP this week Continue current meds Assessment & Plan (11/18/2021 11:56 AM EDT): Continue current meds Repeat BMP next week Assessment & Plan (11/17/2021 12:59 PM EDT): Repeat BMP Assessment & Plan (11/16/2021 3:04 PM EDT): Continue current meds Repeat BMP today Assessment & Plan (05/25/2023 10:01 AM EST): >>ASSESSMENT AND PLAN FOR STAGE 5 CHRONIC KIDNEY DISEASE ON CHRONIC DIALYSIS ([facility]) WRITTEN ON 11/04/2021 11:44 AM BY ZARA THOMPSON NP Lab work due next week Continue medication regimen BP elevated but stable 2nd opinion next week >>ASSESSMENT AND PLAN FOR HYPERTENSIVE RENAL DISEASE WITH RENAL FAILURE WRITTEN ON 11/04/2021 11:45 AM BY ZARA THOMPSON NP BP elevated but stable Continue with current regimen Red flags follow up with staff, -->ED Last 3 BP Readings: Date: BP: 11/04/2021 143/91 11/03/2021 132/84 11/02/2021 134/83 Assessment & Plan (11/03/2021 3:22 PM EDT): Repeat BMP week of 11/07 Continue kayexalate, bicarb, HTN meds Monitor BP 11/11 nephro appt Assessment & Plan (10/31/2021 2:40 PM EDT): Repeat BMP Continue bicarb, kayexalate [ ] 11/11 nephro 2nd opinion Assessment & Plan (05/25/2023 10:01 AM EST): >>ASSESSMENT AND PLAN FOR STAGE 5 CHRONIC KIDNEY DISEASE ON CHRONIC DIALYSIS ([facility]) WRITTEN ON 10/28/2021 11:06 AM BY PRESTON KAHN Repeat BMP next week Continue bicarb, kayexalate [ ] 11/11 nephro 2nd opinion Will need dialysis >>ASSESSMENT AND PLAN FOR HYPERTENSIVE RENAL DISEASE WITH RENAL FAILURE WRITTEN ON 10/28/2021 11:05 AM BY PRESTON KAHN BP elevated today, no symptoms of hypertensive emergency, repeat BP before leaving [facility] at noon Continue current meds Pt aware of red flag symptoms, will alert staff of changes Assessment & Plan (10/27/2021 1:51 PM EDT): K+ WNL, repeat BMP next week Continue kayexalate, bicarb [ ] 11/11 nephro 2nd opinion Will need dialysis eventually Assessment & Plan (10/24/2021 1:33 PM EDT): Continue current meds BMP today Pt to schedule 2nd opinion nephro before dialysis Assessment & Plan (10/21/2021 1:25 PM EDT): NSR on EKG yesterday Continue bicarb, kayexalate, HTN meds Repeat BMP today Red flag sx discussed with pt Assessment & Plan (10/19/2021 12:39 PM EDT): Pt getting blood draw today Currently taking bicarb, not taking kayexalate may need to restart Pt to call [facility] neph for 2nd opinion re: dialysis Assessment & Plan (10/17/2021 1:29 PM EDT): Pt to call and schedule 2nd opinion at [facility] Dialysis imminent, pt wants 2nd opinion before starting Assessment & Plan (10/14/2021 12:07 PM EDT): Pt has accepted that he will need dialysis, still wants 2nd opinion before starting Pt calling to make appt for 2nd opinion Continue current meds BMP next week Assessment & Plan (10/14/2021 9:31 AM EDT): BMP unchanged from previous; stable Potassium Last: 4.1; no kayexalate Labs next week; aware Contact info given for [facility] nephrology Assessment & Plan (10/13/2021 3:41 PM EDT): BMP ordered for next week Continue current meds Pt scheduling 2nd opinion Will need dialysis at some point Assessment & Plan (08/08/2021 11:40 AM EDT): CMP drawn today, results pending Continue current meds nephro 2nd opinion scheduled for 09/22 Pt refuses AVF/dialysis until 2nd opinion Assessment & Plan (05/25/2023 10:01 AM EST): >>ASSESSMENT AND PLAN FOR STAGE 5 CHRONIC KIDNEY DISEASE ON CHRONIC DIALYSIS ([facility]) WRITTEN ON 08/04/2021 1:43 PM BY KEYLA SOLORIO NP Lasix was d/c'ed in hospital and pt has gained 10lbs in 3 days. Starting torsemide 20mg daily >>ASSESSMENT AND PLAN FOR HYPERTENSIVE RENAL DISEASE WITH RENAL FAILURE WRITTEN ON 08/04/2021 1:43 PM BY KEYLA SOLORIO NP BP elevated today with mild headache. His weight is up 10 lbs in 3 days. No other red flags. Rec APAP for headache and reviewed red flags to report if worsens. Adding torsemide for probable fluid retension, though breathing and leg edema unchanged. Will consider increasing carvedilol to 25mg BID if BP persists elevated. F/u with renal. Labs 08/08 Assessment & Plan (05/25/2023 10:01 AM EST): >>ASSESSMENT AND PLAN FOR STAGE 5 CHRONIC KIDNEY DISEASE ON CHRONIC DIALYSIS ([facility]) WRITTEN ON 08/02/2021 1:28 PM BY PRESTON KAHN Nephro 2nd opinion in August Weekly BMP Continue HTN meds, bicarb, vitamin D >>ASSESSMENT AND PLAN FOR HYPERTENSIVE RENAL DISEASE WITH RENAL FAILURE WRITTEN ON 08/02/2021 1:29 PM BY PRESTON KAHN Continue Coreg, amlodipine, hydralazine Monitor BPs Assessment & Plan (05/25/2023 10:01 AM EST): >>ASSESSMENT AND PLAN FOR STAGE 5 CHRONIC KIDNEY DISEASE ON CHRONIC DIALYSIS ([facility]) WRITTEN ON 07/22/2021 12:27 PM BY ZARA THOMPSON NP Continue with current regimen Follow up with staff for any red flags >>ASSESSMENT AND PLAN FOR HYPERTENSIVE RENAL DISEASE WITH RENAL FAILURE WRITTEN ON 07/22/2021 12:26 PM BY ZARA THOMPSON NP HTN becoming increasingly difficulty to control Will not consider dialysis without second opinion; appt in August Assessment & Plan (07/21/2021 3:55 PM EDT): Encouraged again to continue to attend nephrology appointments. Continue current regimen Reviewed warning signs to alert staff including changes in urine quantity or consistency, abd pain, headache, or confusion Assessment & Plan (07/19/2021 10:29 AM EDT): BP elevated, though asymptomatic. May indeed be secondary to stress, but will closely monitor for symptoms and worsening. BMP reviewed an unchanged from previous F/u with renal 07/21/21 Assessment & Plan (07/18/2021 11:57 AM EDT): Stable BP in better control last week and today Has f/u with nephrology on 07/21/21 at 12 pm No labs ordered today Assessment & Plan (07/15/2021 1:32 PM EDT): 2nd opinion being scheduled by PCP office, will decide on AV fistula/dialysis after that appt BMP today Continue current meds BP has been good past 2 days, monitor Assessment & Plan (07/14/2021 1:32 PM EDT): Ongoing discussion regarding impact of dialysis and of not attending dialysis on personal life and health Is awaiting second opinion but appears to be referred to the same off ice with another provider, prefers an entirely new provider. Given number for Dr. Murray through [facility] for additional consult, transportation is a barrier and will need assistance with this Assessment & Plan (05/25/2023 10:01 AM EST): >>ASSESSMENT AND PLAN FOR STAGE 5 CHRONIC KIDNEY DISEASE ON CHRONIC DIALYSIS (FORM[facility]) WRITTEN ON 07/13/2021 6:26 PM BY ADAM BEST DNP A: BP currently stable. Pt has been recommended by [facility] nephrology for dialysis. Pt prefers to get a second opinion before proceeding. P: Urgent referral to nephrology for a second opinion outside of [facility]. Advised pt that it is very important that this be decided soon, given his renal function. >>ASSESSMENT AND PLAN FOR HYPERTENSIVE RENAL DISEASE WITH RENAL FAILURE WRITTEN ON 07/13/2021 3:48 PM BY ADAM BEST DNP A: HTN is well managed on current treatment.Dialysis has been recommended by nephrology at [facility]. PT wants second opinion. P: Continue with current treatment. Referral placed, urgent, for nephrology second opinion. Assessment & Plan (07/11/2021 2:57 PM EDT): BP stable Continue current med regimen Repeat BMP end of week Pt will schedule renal 2nd opinion and decision on dialysis to follow Assessment & Plan (07/08/2021 12:25 PM EDT): Lab Results Component Value Date NA 142 07/07/2021 K 4.6 07/07/2021 CHLORIDE 100 07/07/2021 C02 29 07/07/2021 CALCIUM 9.4 07/07/2021 BUN 80 (H) 07/07/2021 BUNCREAT 17 11/13/2018 EGFR 12 (L) 07/07/2021 EGFRAFAM 46 (L) 11/13/2018 CREATININE 5.14 (H) 07/07/2021 PROTEIN 7.9 02/07/2021 ALBUMIN 4.4 02/07/2021 GLOBULIN 3.5 02/07/2021 AGRATIO 1.2 2018 AST 28 02/07/2021 ALT 30 02/07/2021 ALKPHOS 115 (H) 02/07/2021 BILIRUBIN <0.2 02/07/2021 GLUCOSE 100 (H) 07/07/2021 Wanting second opinion Continue with current medication regimen at this time Follow up prn Assessment & Plan (07/05/2021 10:58 AM EDT): Continue lasix 40 mg BID, kayexalate 60 mL Ordered BMP Provide list of options for vascular 2nd opinion Anticipate AVF placement and dialysis start Assessment & Plan (07/04/2021 12:49 PM EDT): Stable renal function according to last weeks labs Repeat labs next week to ensure stable renal and elyte levels Assessment & Plan (07/01/2021 2:58 PM EDT): Continue kayexalate and lasix Will give list of providers to pt for 2nd opinion on AVF/dialysis 08/15 f/u nephrology appt Continue to monitor kidney function, electrolytes Monitor BP (left arm only) Assessment & Plan (05/25/2023 10:01 AM EST): >>ASSESSMENT AND PLAN FOR STAGE 5 CHRONIC KIDNEY DISEASE ON CHRONIC DIALYSIS (FORMERLY [facility]) WRITTEN ON 06/27/2021 1:11 PM BY CALI HARRINGTON PA-C Stable stage 5 CKD Plan for BMP this week F/u with renal at end of the month >>ASSESSMENT AND PLAN FOR HYPERTENSIVE RENAL DISEASE WITH RENAL FAILURE WRITTEN ON 06/27/2021 1:14 PM BY CALI HARRINGTON PA-C Poorly controlled. Pt feels stress is to blame regarding his HTN He is asymptomatic of the elevated Bp at this time. Consider adjusting medications to better control BP next week if Bp does not start to normalize Assessment & Plan (05/25/2023 10:01 AM EST): >>ASSESSMENT AND PLAN FOR STAGE 5 CHRONIC KIDNEY DISEASE ON CHRONIC DIALYSIS (FORMERLY [facility]) WRITTEN ON 06/24/2021 12:36 PM BY ZARA THOMPSON NP U/s on 06/17 for fistula placement, concerns for right thrombus within median antecubital and cephalic vein at proximal forearm. No redness, no pain, no swelling right forearm Message sent to nephrology in addition to recommendations for BP Dr Cancino's office has attempted to contact multiple times, left VM; spoke to patient about results, denies rec'v phone call But aware of needing to listen to VM Advised to f/u and return phone call Follow up with staff if any s/s develop >>ASSESSMENT AND PLAN FOR HYPERTENSIVE RENAL DISEASE WITH RENAL FAILURE WRITTEN ON 06/24/2021 12:32 PM BY ZARA THOMPSON NP Lab Results Component Value Date NA 140 06/21/2021 K 5.4 (H) 06/21/2021 CHLORIDE 100 06/21/2021 C02 22 06/21/2021 CALCIUM 9.5 06/21/2021 BUN 77 (H) 06/21/2021 BUNCREAT 17 11/13/2018 EGFR 14 (L) 06/21/2021 EGFRAFAM 46 (L) 11/13/2018 CREATININE 4.55 (H) 06/21/2021 PROTEIN 7.9 02/07/2021 ALBUMIN 4.4 02/07/2021 GLOBULIN 3.5 02/07/2021 AGRATIO 1.2 2018 AST 28 02/07/2021 ALT 30 02/07/2021 ALKPHOS 115 (H) 02/07/2021 BILIRUBIN <0.2 02/07/2021 GLUCOSE 108 (H) 06/21/2021 Last 3 BP Readings: Date: BP: 06/24/2021 160/100 06/23/2021 172/90 06/22/2021 156/91 BP remains uncontrolled Message sent to nephrology for any add'l recommendations or sooner f/u Patient aware to f/u with staff if develops any red flags Assessment & Plan (05/25/2023 10:01 AM EST): >>ASSESSMENT AND PLAN FOR STAGE 5 CHRONIC KIDNEY DISEASE ON CHRONIC DIALYSIS (FORMERLY [facility]) WRITTEN ON 06/23/2021 1:46 PM BY CLIFFORD HU NP EGFR down to 14, with rising creatinine to 4.55 Asymptomatic Taking lasix BID, but will change dosing time to avoid overnight bathroom trips Continue kayexalate Has vascular appt next week to continue plan for dialysis start and avf placement. >>ASSESSMENT AND PLAN FOR HYPERTENSIVE RENAL DISEASE WITH RENAL FAILURE WRITTEN ON 06/23/2021 2:02 PM BY CLIFFORD HU NP Significantly elevated today, asymptomatic Likely related to CKD and worsening renal function Reviewed warning signs to alert staff Assessment & Plan (06/22/2021 6:29 AM EDT): Asymptomatic Reports adherence to kayexalate For labs today which resulted after visit and showed k+ slightly elevated. P: continue kayexalate Follow with repeat labs in 1 week Assessment & Plan (06/20/2021 1:58 PM EDT): Stable Needs to go for labs today he agrees to this U/s for vein mapping tomorrow Assessment & Plan (05/25/2023 10:01 AM EST): >>ASSESSMENT AND PLAN FOR STAGE 5 CHRONIC KIDNEY DISEASE ON CHRONIC DIALYSIS ([facility]) WRITTEN ON 06/17/2021 12:20 PM BY ZARA THOMPSON NP Remains on lasix as rx'd by nephrology Follow up in 6 weeks Lab Results Component Value Date NA 137 06/13/2021 K 5.1 06/13/2021 CHLORIDE 101 06/13/2021 C02 22 06/13/2021 CALCIUM 9.1 06/13/2021 BUN 70 (H) 06/13/2021 BUNCREAT 17 11/13/2018 EGFR 14 (L) 06/13/2021 EGFRAFAM 46 (L) 11/13/2018 CREATININE 4.55 (H) 06/13/2021 PROTEIN 7.9 02/07/2021 ALBUMIN 4.4 02/07/2021 GLOBULIN 3.5 02/07/2021 AGRATIO 1.2 2018 AST 28 02/07/2021 ALT 30 02/07/2021 ALKPHOS 115 (H) 02/07/2021 BILIRUBIN <0.2 02/07/2021 GLUCOSE 134 (H) 06/13/2021 >>ASSESSMENT AND PLAN FOR HYPERTENSIVE RENAL DISEASE WITH RENAL FAILURE WRITTEN ON 06/17/2021 12:23 PM BY ZARA THOMPSON NP BP Readings from Last 6 Encounters: 06/17/21 160/98 06/16/21 142/88 06/15/21 134/77 06/14/21 118/71 06/13/21 103/65 06/10/21 144/68 Counseled on low salt diet, no red flags on exam ? Anxiety increasing BP Taking medications as rx'd Will continue to monitor; repeat BP 3 days in clinic Assessment & Plan (06/13/2021 6:45 PM EDT): lasix 40 added kayexalate increased to 60 mg Repeat BMP today showed stable kidney function and normal potassium. Kayexalate will be restarted today at the 60 mg dose, rx updated in med list. Assessment & Plan (06/11/2021 11:19 PM EDT): Lasix added by renal which may help pt's hyperkalemia to some extent. Renal also recommended continuing current dose of kayexalate. Lasix started 06/09/21 and pt is actually more hypertensive than usual with some nausea. He has not been taking his PPI, so he will restart this. He is due for labs 2-3 days after starting his lasix, so should get them by 06/11 Assessment & Plan (06/07/2021 11:40 PM EDT): Appears he missed 05/30 appt with renal, but states he has 06/08 rescheduled appt. Continue kayexalate as his k+ is stable at this dose. Await renal advice Assessment & Plan (05/25/2023 10:01 AM EST): >>ASSESSMENT AND PLAN FOR STAGE 5 CHRONIC KIDNEY DISEASE ON CHRONIC DIALYSIS (FORMERLY [facility]) WRITTEN ON 06/06/2021 9:09 AM BY GRADY JOINER. Last Cr 3.7 and potassium was normal Still on 30 of kayexelate daily will continue on this for now. >>ASSESSMENT AND PLAN FOR HYPERTENSIVE RENAL DISEASE WITH RENAL FAILURE WRITTEN ON 06/06/2021 9:10 AM BY GRADY JOINER Continue all meds with no change Obtain BMP Assessment & Plan (06/03/2021 12:51 PM EST): Appt with nephrology 06/08 Continue with kayexalate Advised blood work next week to f/u on potassium, will likely have done with neprhology Assessment & Plan (05/31/2021 10:10 PM EST): Asymptomatic. Potassium appears corrected. F/u with renal 06/08 Assessment & Plan (05/30/2021 7:18 PM EST): Worsening. Rescheduled his own renal appt from today to next week. Plan to recheck renal funciton and potassium in one week, Cont on Kayex 30 mg daily Assessment & Plan (05/30/2021 8:42 AM EST): Lab Results Component Value Date NA 140 05/26/2021 K 4.9 05/26/2021 CHLORIDE 104 05/26/2021 C02 18 (L) 05/26/2021 CALCIUM 8.9 05/26/2021 BUN 76 (H) 05/26/2021 BUNCREAT 17 11/13/2018 EGFR 18 (L) 05/26/2021 EGFRAFAM 46 (L) 11/13/2018 CREATININE 3.73 (H) 05/26/2021 PROTEIN 7.9 02/07/2021 ALBUMIN 4.4 02/07/2021 GLOBULIN 3.5 02/07/2021 AGRATIO 1.2 2018 AST 28 02/07/2021 ALT 30 02/07/2021 ALKPHOS 115 (H) 02/07/2021 BILIRUBIN <0.2 02/07/2021 GLUCOSE 119 (H) 05/26/2021 Potassium within normal limits, however given elevated in past with decrease kayelxalate dose by half Plan to recheck in 2 weeks Assessment & Plan (05/25/2021 10:34 AM EST): Awaiting renal appointment, referral has been placed. Last K was 5.9, on kayelxalate. Will recheck BMP tomorrow. Assessment & Plan (05/24/2021 10:08 PM EST): Awaiting renal appt. Referral has already been placed. Repeat BMP 3/3 to recheck potassium Start kayelxalate daily Assessment & Plan (05/13/2021 9:16 PM EST): GFR 20 per BMP on 05/12/21. Will have pt repeat BMP in one week Will send message to [place] for rescheduling [facility] referral Assessment & Plan (05/25/2023 10:01 AM EST): >>ASSESSMENT AND PLAN FOR STAGE 5 CHRONIC KIDNEY DISEASE ON CHRONIC DIALYSIS ([facility]) WRITTEN ON 05/09/2021 4:29 PM BY CALI HARRINGTON PA-C Stable Cr at 3.02 No electrolyte abnormalities on recent BMP >>ASSESSMENT AND PLAN FOR HYPERTENSIVE RENAL DISEASE WITH RENAL FAILURE WRITTEN ON 05/09/2021 4:27 PM BY CALI HARRINGTON PA-C Well controlled today Will continue to monitor Assessment & Plan (05/25/2023 10:01 AM EST): >>ASSESSMENT AND PLAN FOR STAGE 5 CHRONIC KIDNEY DISEASE ON CHRONIC DIALYSIS ([facility]) WRITTEN ON 02/21/2021 7:34 PM BY CALI HARRINGTON PA-C Repeat BMP Will ensure med cups are available for him to take kayexelate daily spoke with nurse who will arrange for this >>ASSESSMENT AND PLAN FOR HYPERTENSIVE RENAL DISEASE WITH RENAL FAILURE WRITTEN ON 02/21/2021 7:43 PM BY CALI HARRINGTON PA-C Well controlled Continue current medications Check BMP Assessment & Plan (02/16/2021 12:11 PM EST): Referral request has been faxed to nephrology, awaiting response for appt No kayexelate yet Lab orders pending; patient aware to have done Sunday morning Assessment & Plan (05/25/2023 10:01 AM EST): >>ASSESSMENT AND PLAN FOR STAGE 5 CHRONIC KIDNEY DISEASE ON CHRONIC DIALYSIS ([facility]) WRITTEN ON 02/15/2021 10:52 AM BY LIVE CASIANO NP Awaiting nephro f/u appt. Plan to start kayexelate today and repeat labs on Sunday. >>ASSESSMENT AND PLAN FOR HYPERTENSIVE RENAL DISEASE WITH RENAL FAILURE WRITTEN ON 02/15/2021 10:51 AM BY LIVE CASIANO NP Asymptomatic. Continues to be above goal despite being maxed out on hydralazine and amlodipine. HR consistently above 70, will titrate up carvedilol and monitor. Assessment & Plan (05/25/2023 10:01 AM EST): >>ASSESSMENT AND PLAN FOR STAGE 5 CHRONIC KIDNEY DISEASE ON CHRONIC DIALYSIS (FORMERLY [facility]) WRITTEN ON 02/15/2021 5:33 AM BY LIVE CASIANO NP Urgent nephrology referral pending. Normal renal US in hospital. Hyperkalemia worsening, asymptomatic. Plan to start low dose kayexelate daily and recheck in 1 week. Discussed rapidly diminishing renal function with patient in depth and risk of needing dialysis soon. Encouraged to consider remaining at [facility] for longer to stabilize medical condition. Avoid NSAIDs, work on bp control. >>ASSESSMENT AND PLAN FOR HYPERTENSIVE RENAL DISEASE WITH RENAL FAILURE WRITTEN ON 02/15/2021 5:36 AM BY LIVE CASIANO NP Near goal. Continue current regimen. Reviewed lifestyle interventions and importance of low sodium diet. Maxed out on hydralazine and amlodipine, cannot tolerate june d/t hyperkalemia. If continues to be elevated could consider titrating up carvedilol. Assessment & Plan (02/11/2021 10:42 AM EST): Referral to nephrology still pending Counseled to stay well Hydrated avoid NSAIDs Repeat labs to check electrolytes Lab Results Component Value Date NA 136 02/07/2021 K 5.4 (H) 02/07/2021 CHLORIDE 104 02/07/2021 C02 22 02/07/2021 CALCIUM 9.2 02/07/2021 BUN 57 (H) 02/07/2021 BUNCREAT 17 11/13/2018 EGFR 20 (L) 02/07/2021 EGFRAFAM 46 (L) 11/13/2018 CREATININE 3.26 (H) 02/07/2021 PROTEIN 7.9 02/07/2021 ALBUMIN 4.4 02/07/2021 GLOBULIN 3.5 02/07/2021 AGRATIO 1.2 2018 AST 28 02/07/2021 ALT 30 02/07/2021 ALKPHOS 115 (H) 02/07/2021 BILIRUBIN <0.2 02/07/2021 GLUCOSE 87 02/07/2021 Assessment & Plan (05/25/2023 10:01 AM EST): >>ASSESSMENT AND PLAN FOR STAGE 5 CHRONIC KIDNEY DISEASE ON CHRONIC DIALYSIS (FORMERLY [facility]) WRITTEN ON 02/09/2021 9:16 AM BY ZARA THOMPSON NP Was being seen by nephrology in past but has not seen recently Given decreasing kidney function will refer to nephrology Patient aware of referral will update PCP Advised to stay well hydrated Slightly hyperkalemic, will need close follow up, repeat labs 1 weeks; reviewed s/s to monitor >>ASSESSMENT AND PLAN FOR HYPERTENSIVE RENAL DISEASE WITH RENAL FAILURE WRITTEN ON 02/09/2021 9:32 AM BY ZARA THOMPSON NP BP stable Continue with current regimen Counseled low salt diet Assessment & Plan (05/25/2023 10:01 AM EST): >>ASSESSMENT AND PLAN FOR STAGE 5 CHRONIC KIDNEY DISEASE ON CHRONIC DIALYSIS ([facility]) WRITTEN ON 02/02/2021 2:35 PM BY LIVE CASIANO NP June stopped due to demetrio in hospital >>ASSESSMENT AND PLAN FOR HYPERTENSIVE RENAL DISEASE WITH RENAL FAILURE WRITTEN ON 02/02/2021 2:54 PM BY LIVE CASIANO NP June stopped in hospital d/t DEMETRIO. Near goal on admission today. Continue current regimen and monitor Assessment & Plan (05/25/2023 10:01 AM EST): >>ASSESSMENT AND PLAN FOR STAGE 5 CHRONIC KIDNEY DISEASE ON CHRONIC DIALYSIS ([facility]) WRITTEN ON 09/03/2019 11:52 AM BY ESTRELLA MARI PA-C Recent hospitalization for acute on chronic kidney disease. Creatinine of 3.15, up from prior of 2.22. Proteinuria at 125. BERNARD negative. Hepatitis serologies negative. Elevated kappa and lamda light chains in urine. On discharge creatinine was 2.58. Will repeat bmp, cbc. Urgent referral to renal. Atrophic kidneys. No NSAIDs >>ASSESSMENT AND PLAN FOR HYPERTENSIVE RENAL DISEASE WITH RENAL FAILURE WRITTEN ON 09/03/2019 11:48 AM BY ESTRELLA MARI PA-C Last 3 BP Readings: Date: BP: 11/22/2018 120/80 11/20/2018 140/60 11/19/2018 140/62 Lab Results Component Value Date CREATININE 1.84 (H) 11/13/2018 EGFR 40 (L) 11/13/2018 EGFRAFAM 46 (L) 11/13/2018 The 10-year ASCVD risk score (Bent DC Jr., et al., 2013) is: 11.1% BP is unknown. Presently on labetolol 400mg bid instead of metoprolol. Also on amlodipine 10mg. Will need to reassess when schedules with new pcp. Discussed low sodium diet. Mediterranean diet information reviewed. Daily exercise encouraged. Closed fracture of hip 08/10/2017 Assessment & Plan (07/25/2018 4:20 PM EDT): Ambulates with antalgic gait without need for assistive devices. Denies any pain. Not interested in PT. Assessment & Plan (07/19/2018 1:28 PM EDT): Gait with limp, last x-rays show DJD. PT referral sent today, may need f/u with ortho. HISTORY: Hip pain. COMPARISON: Radiograph of December 12, 2017 and October 11, 2017. FINDINGS: AP view of the pelvis and 2 views of the right hip. Patient is status post right joint internal fixation and reduction. There is stable appearance of the right hip and hardware, without evidence of acute complication. No acute fracture detected. There is no dislocation. Degenerative changes noted on the right acetabulum. The right hemipelvis is grossly intact. The also degenerative changes of the left hip joint. Phlebolith noted in the pelvis. Soft tissues are otherwise unremarkable. Chronic anemia 09/24/2016 Overview (11/20/2019): 11/12/19-11/18/19 Hospitalized for alcohol withdrawal and acute on chronic anemia . Acute blood loss anemia, esophageal ulcer. Presented with drop in Hgb to 6.9 from 10 in August 2019, suspect acute blood loss anemia given report of melena. 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 Biopsy was taken and he will be contacted by GI with biopsy results. IV pantoprazole and octreotide have been stopped. No further melena noted since. Transfused total 2 units of PRBC with Hgb increase to 8. Hgb stable at 7.8 and no further melena or any other bleeding noted at discharge. Lab work also consistent with iron deficiency and he was given IV iron x2 doses and will be prescribed iron supplement at discharge. He plans to follow up with his PCP at [facility] after discharge. Assessment & Plan (04/05/2023 12:08 PM EST): Gradual trend up from 03/31/23 (7.3) to 7.8 on 04/02. Denies symptoms of dizziness SOB Would have him recheck CBC next week or if symptoms develop sooner GI referral in place for colo/eval Assessment & Plan (04/03/2023 11:14 AM EST): Known hx of anemia Hospitalized at [place] for acute on chronic anemia: while hospitalized, Hb 7.4, HCT 23.3 as compared to 2 weeks prior hemoglobin 9.1 Pt denies any active signs of bleeding or bruising Per GI, offered colonoscopy/EGD in pt but pt deferred to outpt GI referral placed previously Pt instructed to monitor for any signs of bleeding, increasing dizziness or lightheadness (none present today) Consider repeat CBC later this week Assessment & Plan (08/25/2022 3:57 PM EDT): Compliant with iron supplementation Discuss with nephro Dizziness improving Assessment & Plan (08/25/2022 10:49 AM EDT): On daily iron supplements Has not discussed with corporate services manager yet Reports improvement with dizziness Plan to continue at this time Assessment & Plan (08/21/2022 7:04 PM EDT): Sxs improving Continue iron supplementation Encouraged to discuss with corporate services manager Assessment & Plan (08/18/2022 12:20 PM EDT): Taking iron supplements Reports of dizziness improving Encouraged to discuss with corporate services manager Assessment & Plan (08/11/2022 10:43 AM EDT): No significant symptoms; denies easy bruising, fatigue. Dizziness unlikely 2/2 anemia. Questionable benefit from Fe supplement. Should discuss with corporate services manager at dialysis BP 112/60 after dialysis last night, mildly elevated today. Would recommend maintaining current BP regimen. Assessment & Plan (08/11/2022 10:35 AM EDT): Hx of anemia 2/2 CKD Continue iron supplementation Encouraged discussing dizziness, anemia, BP with corporate services manager at next dialysis visit 09/21 colonoscopy Assessment & Plan (08/09/2022 10:15 AM EDT): Lab Results Component Value Date HGB 10.1 (L) 08/07/2022 HCT 32.2 (L) 08/07/2022 Likely 2/2 anemia of chronic disease Has been on iron supplements in past Refill sent to pharm Colonoscopy scheduled for September 21 Encouraged to review with corporate services manager during dialysis visit tomorrow Assessment & Plan (08/04/2022 10:19 AM EDT): 09/21 colonoscopy Assessment & Plan (03/03/2022 2:31 PM EST): Receiving Epogen at dialysis treatments Assessment & Plan (03/02/2022 4:08 PM EST): Receiving Epogen during dialysis appts Will check with dialysis clinic if they are doing routine labs Assessment & Plan (02/23/2022 2:54 PM EST): Receiving Epogen at dialysis appts Assessment & Plan (01/24/2022 11:26 AM EDT): Continues with daily fatigue, likely 2/2 anemia, MEAGAN Continue to f/u with renal He may be open to sleep study. Labs today Assessment & Plan (01/23/2022 12:16 PM EDT): On multi-vit with iron Repeat labs iso recent fatigue Assessment & Plan (07/13/2021 6:22 PM EDT): A: Continues with chronic anemia. Taking daily iron supplement. P: Continue to monitor. Alcohol use disorder, severe 10/31/2015 Overview (06/06/2024): 06/06/24- pt has long hx of alcoholism, feels it is the reason he has kidney disease. Sober now since feb because he fears being kicked out of the [facility] and being back at the [place] [facility]. He does think he will end up drinking and using cocaine again when he has his own place. Unclear how likely he is to get his own place. Significant reduction in daily drinking self-reported 1/2 pint liquor (4 beers) per day Prevention plan formulated at 08/08/22 visit with addictions fellow: - Call sponsor --> pt needs to establish with a new AA sponsor - Call girlfriend or dad - Listen to music on phone, play HSTYLE - Go for a walk - Take as needed oral naltrexone 07/04/21: More than 60 days sober. Amenable to another vivitrol injection on 07/06/21 06/18/21: Pt presented with some concerns about independent living and maintaining his recovery. 02/21/21: restarted on vivitrol having mild nausea but helping with cravings. Naltrexone stopped. 08/06/20: Hospitalized for acute ETOh intoxication and fall- Ct of head was normal. 11/12/19-11/18/19 1. Alcohol withdrawal. He presented requesting detox from alcohol and since completed phenobarb taper with resolution of alcohol withdrawal. Seen by SW and other sports coach or instructor referral was made. He was not interested in other outpatient treatment program referral per SW. He was seen by PT who also recommends discharge home. He was advised to abstain from alcohol use. Patient reports he recently lost his apartment and will be working with for discharge disposition planning. 09/28/19 ED for acute alcohol intoxication 09/16/19 Hospitalized for detox 09/16/19 [facility] /07/26/2018: Vivitrol given T/C from [facility]. Admitted 01-04-16 Alcohol withdrawal, hypertension w/ tachycardia , low magnesium gastritis secondary to alcohol .Pt Rx Ativan protocol with good results. Discharging needs PCP F/U, scheduled. Pelon Mcgrath RN 10/31/2015 - Significantly elevated. Diastolic. Referred to . Assessment & Plan (12/08/2024 11:01 AM EDT): A: Worsening, relapsed after discharge from [facility] last week. Drank 6 nips, fell and hit head. Ended up in ER. Plan: Continue same medications and dosages. Use CO and positive reinforcement to encourage harm reduction use of ETOH and or sobriety. Has other sports coach or instructor. Discussed medications to decrease cravings for ETOH. Patient not interested in starting medications to decrease cravings at this time. Recommended AA. Supportive therapy Recommend working on a relapse prevention plan Assessment & Plan (11/28/2024 9:48 AM EDT): Abstinent x 8 months Continues use of other sports coach or instructor, following up with psychopharm Declines medications to prevent relapse Encouraged abstinence as moving into own housing unit Assessment & Plan (11/28/2024 8:55 AM EDT): A: No ETOh use. Denies cravings to drink ETOH Plan: Continue same medications and dosages. Use CO and positive reinforcement to encourage harm reduction use of ETOH and or sobriety. Has other sports coach or instructor. Discussed medications to decrease cravings for ETOH. Patient not interested in starting medications to decrease cravings at this time. Recommend working on a relapse prevention plan Assessment & Plan (11/27/2024 11:53 AM EDT): 8 months sober Congratulated on continued success with sobriety Not good candidate for LUIS given ESRD, could possibly consider low dose gabapentin, though pt declines LUIS Plans to continue with other sports coach or instructorLaura team will be having weekly touch points with patient as well Pt plans to stay busy with hobbies as mechanism to avoid relapse as boredom has been trigger in past Assessment & Plan (11/20/2024 9:06 AM EDT): 8 months sober Congratulated on continued sobriety Encouraged pt to reconnect with other sports coach or instructor Not eligible for most LUIS given ESRD, could consider low dose gabapentin ? History of relapse after leaving structured program and living independently Continue to discuss continued recovery plan Assessment & Plan (11/17/2024 3:46 PM EDT): A: No ETOh use. Denies cravings to drink ETOH Plan: Continue same medications and dosages. Use CO and positive reinforcement to encourage harm reduction use of ETOH and or sobriety. Recommend AA and other sports coach or instructor. Recommend working on a relapse prevention plan Assessment & Plan (11/17/2024 11:59 AM EDT): 8 months abstinent Congratulated on continued sobriety Encouraged to continue meeting with other sports coach or instructor Not a candidate for [facility]IS given ESRD Assessment & Plan (11/10/2024 1:57 PM EDT): A: No ETOh use. Denies cravings to drink ETOH Plan: Continue same medications and dosages. Use CO and positive reinforcement to encourage harm reduction use of ETOH and or sobriety. Recommend AA and other sports coach or instructor. As patient gets closer to discharge from [facility] will work on relapse prevention plan. Also start to discuss if patient would like to start medications to prevent cravings for etoh. Assessment & Plan (11/07/2024 10:34 AM EDT): Congratulated on 8 months sobriety Pt feeling secure in his recovery Phone number for other sports coach or instructor given to pt, encouraged making plan together for sustained recovery once discharge from [facility] Will schedule group meeting with [facility] team to plan touch points with pt for additional support Assessment & Plan (11/05/2024 11:53 AM EDT): No ETOH in 7-8 months now Denies cravings Not a candidate for [facility] based on ESRD Contact information for other sports coach or instructor, Laura, given to pt Will arrange group meeting with [facility] team for relapse prevention planning Assessment & Plan (11/03/2024 1:20 PM EDT): No ETOH use in 7 months Feeling strong in his recovery Denies cravings Declines LUIS at this time, will think about it Open to reconnecting with other sports coach or instructor to plan for sustained recovery after program discharge Assessment & Plan (10/27/2024 3:49 PM EDT): A: No ETOh use. Denies cravings to drink ETOH Plan: Continue same medications and dosages. Use CO and positive reinforcement to encourage harm reduction use of ETOH and or sobriety. Recommend AA and other sports coach or instructor. As patient gets closer to discharge from [facility] will work on relapse prevention plan. Also start to discuss if patient would like to start medications to prevent cravings for etoh. Assessment & Plan (10/13/2024 3:34 PM EDT): A: No ETOh use. Denies cravings to drink ETOH Plan: Continue same medications and dosages. Use CO and positive reinforcement to encourage harm reduction use of ETOH and or sobriety. Recommend AA and other sports coach or instructor. As patient gets closer to discharge from [facility] will work on relapse prevention plan. Also start to discuss if patient would like to start medications to prevent cravings for etoh. Assessment & Plan (10/03/2024 4:04 PM EDT): A: No ETOh use. Denies cravings to drink ETOH Plan: Continue same medications and dosages. Use CO and positive reinforcement to encourage harm reduction use of ETOH and or sobriety. Recommend AA and other sports coach or instructor. As patient gets closer to discharge from [facility] will work on relapse prevention plan. Also start to discuss if patient would like to start medications to prevent cravings for etoh. Assessment & Plan (09/08/2024 10:05 AM EDT): Denies cravings Continue CO Encouraged recovery groups, other sports coach or instructor Assessment & Plan (09/05/2024 10:39 AM EDT): A: No ETOh use. Denies cravings to drink ETOH Plan: Continue same medications and dosages. Use CO and positive reinforcement to encourage harm reduction use of ETOH and or sobriety. Recommend AA and other sports coach or instructor. As patient gets closer to discharge from [facility] will work on relapse prevention plan. Also start to discuss if patient would like to start medications to prevent cravings for etoh. Assessment & Plan (09/01/2024 1:30 PM EDT): Reports continued sobriety Encouraged re engagement with other sports coach or instructor, groups, sponsor Not interested in [facility]IS at this time Assessment & Plan (08/29/2024 10:14 AM EDT): A: No ETOh use. Denies cravings to drink ETOH Plan: Continue same medications and dosages. Use CO and positive reinforcement to encourage harm reduction use of ETOH and or sobriety. Recommend AA and other sports coach or instructor. As patient gets closer to discharge from [facility] will work on relapse prevention plan. Also start to discuss if patient would like to start medications to prevent cravings for etoh. Assessment & Plan (08/26/2024 11:47 AM EDT): Stable Denies cravings Continue to discuss relapse prevention plan as discharge date gets closer Assessment & Plan (08/25/2024 4:25 PM EDT): A: No ETOh use. Denies cravings to drink ETOH Plan: Continue same medications and dosages. Use CO and positive reinforcement to encourage harm reduction use of ETOH and or sobriety. Recommend AA and other sports coach or instructor. As patient gets closer to discharge from [facility] will work on relapse prevention plan. Also start to discuss if patient would like to start medications to prevent cravings for etoh. Assessment & Plan (08/14/2024 12:57 PM EDT): Stable Denies cravings Recommend AA, other sports coach or instructor Pt typically does well in program and struggles post-discharge, will need plan for return to independent living ([facility], [facility], etc) Assessment & Plan (08/08/2024 12:48 PM EDT): A: No ETOh use. Denies cravings to drink ETOH Plan: Continue same medications and dosages. Use CO and positive reinforcement to encourage harm reduction use of ETOH and or sobriety. Recommend AA and other sports coach or instructor. As patient gets closer to discharge from [facility] will work on relapse prevention plan. Also start to discuss if patient would like to start medications to prevent cravings for etoh. Assessment & Plan (08/06/2024 12:04 PM EDT): UDS to be collected today, was unable to urinate yesterday Assessment & Plan (08/05/2024 2:38 PM EDT): Stable Denies cravings, but continued dreams about drinking Applauded on almost 4 months abstinence Continue CO Encouraged AA, other sports coach or instructor Assessment & Plan (07/31/2024 3:20 PM EDT): Continued abstinence Applauded on progress Continue CO Encouraged AA, other sports coach or instructor Assessment & Plan (07/29/2024 10:38 AM EDT): Continued abstinence Applauded for progress Continue to encouraged supports such as AA, other sports coach or instructor, sponsor Not interested in [facility]IS Assessment & Plan (07/25/2024 1:04 PM EDT): A: No ETOh use. Denies cravings to drink ETOH Plan: Continue same medications and dosages. Use CO and positive reinforcement to encourage harm reduction use of ETOH and or sobriety. Recommend AA and other sports coach or instructor. Assessment & Plan (07/21/2024 12:04 PM EDT): No recent etoh use Denies cravings Not intereted in [facility]IS Assessment & Plan (07/18/2024 11:01 AM EDT): A: No ETOh use. Denies cravings to drink ETOH Plan: Continue same medications and dosages. Use CO and positive reinforcement to encourage harm reduction use of ETOH and or sobriety. Recommend AA and other sports coach or instructor. Assessment & Plan (07/16/2024 3:12 PM EDT): Stable Due for weekly UDS Assessment & Plan (07/09/2024 5:42 PM EDT): No recent use Denies cravings Recommended support network including groups and/or other sports coach or instructor or sponsor Declines LUIS Assessment & Plan (06/30/2024 10:46 AM EDT): A: No ETOh use. Denies cravings to drink ETOH Plan: Continue same medications and dosages. Use CO and positive reinforcement to encourage harm reduction use of ETOH and or sobriety. Recommend AA and other sports coach or instructor. Assessment & Plan (06/27/2024 12:22 PM EDT): A: Has thoughts about drinking ETOh. Denies cravings. Plan: Continue same medications and dosages. Use CO and positive reinforcement to encourage harm reduction use of ETOH and or sobriety. Recommend AA and other sports coach or instructor. Assessment & Plan (06/20/2024 11:14 AM EDT): Denies cravings Encouraged use of supports including group therapy, other sports coach or instructor Assessment & Plan (06/20/2024 10:47 AM EDT): A: Has thoughts about drinking ETOh. Denies cravings. Plan: Continue same medications and dosages. Use CO and positive reinforcement to encourage harm reduction use of ETOH and or sobriety. Recommend AA and other sports coach or instructor. Assessment & Plan (06/16/2024 2:58 PM EDT): Stable Denies cravings Encouraged meeting with other sports coach or instructor, meetings Assessment & Plan (06/16/2024 2:25 PM EDT): A: Has thoughts about drinking ETOh. Denies cravings. Plan: Continue same medications and dosages. Use CO and positive reinforcement to encourage harm reduction use of ETOH and or sobriety. Recommend AA and other sports coach or instructor. Assessment & Plan (06/16/2024 12:33 PM EDT): A: Has thoughts about drinking ETOh. Denies cravings. Patient is at high risk for relapse d/t recent psychosocial issues and fathers Plan: Continue same medications and dosages. Use CO and positive reinforcement to encourage harm reduction use of ETOH and or sobriety. Recommend AA and other sports coach or instructor. Assessment & Plan (06/06/2024 1:55 PM EDT): Assessment: AUD Current Risk Assessment (if positive complete C-SSRS): None - no suicidal ideation. He does think about not being alive and the pain to end but has no plan and continues to want to live. Plan details: Type of therapy: ind therapy Frequency: weekly or biweekly Expected Duration in months (range): 08/24/24 Specific comments (if any): Assessment & Plan (06/06/2024 12:00 PM EDT): A: Has thoughts about drinking ETOh. Denies cravings. Patient is at high risk for relapse d/t recent psychosocial issues and fathers Plan: Continue same medications and dosages. Use CO and positive reinforcement to encourage harm reduction use of ETOH and or sobriety. Recommend AA and other sports coach or instructor. Assessment & Plan (06/02/2024 12:22 PM EDT): Reports cravings, not acting on them Previous success in structured setting but relapse when back in independent living Declines LUIS Continue discussion regarding recovery supports Open to meeting with other sports coach or instructor, waiting to hear from Laura Assessment & Plan (05/30/2024 12:04 PM EST): A: Has thoughts about drinking ETOh. Denies cravings. Patient is at high risk for relapse d/t recent psychosocial issues and fathers Plan: Continue same medications and dosages. Use CO and positive reinforcement to encourage harm reduction use of ETOH and or sobriety. Recommend AA and other sports coach or instructor. Assessment & Plan (05/28/2024 11:19 AM EST): UDS appropriate and watkins-negative Following with psyhcopharm Awaiting appt w/ other sports coach or instructor 07/07 intake Assessment & Plan (05/23/2024 1:37 PM EST): Stable Denies cravings Open to start seeing other sports coach or instructor, Laura Assessment & Plan (05/23/2024 9:49 AM EST): A: Has thoughts about drinking ETOh. Denies cravings. Patient is at high risk for relapse d/t recent psychosocial issues and fathers Plan: Continue same medications and dosages. Use CO and positive reinforcement to encourage harm reduction use of ETOH and or sobriety. Recommend AA and other sports coach or instructor. Assessment & Plan (05/21/2024 10:34 AM EST): Denies cravings, states, I just don't drink anymore. Cont to monitor Assessment & Plan (05/16/2024 1:51 PM EST): A: Has thoughts about drinking ETOh. Denies cravings. Patient is at high risk for relapse d/t recent psychosocial issues and fathers Plan: Continue same medications and dosages. Use CO and positive reinforcement to encourage harm reduction use of ETOH and or sobriety. Recommend AA and other sports coach or instructor. Assessment & Plan (05/14/2024 10:38 AM EST): Denies cravings today Assessment & Plan (05/11/2024 2:25 PM EST): A: Has thoughts about drinking ETOh. Denies cravings. Patient is at high risk for relapse d/t recent psychosocial issues and fathers Plan: Continue same medications and dosages. Use CO and positive reinforcement to encourage harm reduction use of ETOH and or sobriety. Recommend AA and other sports coach or instructor. Assessment & Plan (05/08/2024 12:08 PM EST): Endorses cravings 04/27 anxiety, grief 05/09 psychopharm appt 05/14 intake Assessment & Plan (05/06/2024 9:53 AM EST): Cravings related to grief, anxiety Continue discussion regarding other sports coach or instructorbernarda MAUD 05/09 psychopharm appt 05/14 intake Assessment & Plan (04/25/2024 1:34 PM EST): A: Has thoughts about drinking ETOh. Denies cravings. Patient is at high risk for relapse d/t recent psychosocial issues and fathers Plan: Continue same medications and dosages. Use CO and positive reinforcement to encourage harm reduction use of ETOH and or sobriety. Recommend AA and other sports coach or instructor. Assessment & Plan (04/24/2024 2:59 PM EST): Urges slightly increased due to father's , though coping fairly well and has some protective factors. Continue f/u with [facility] group with Ed, AA Assessment & Plan (04/11/2024 10:24 AM EST): A: Sober, denies cravings to use. Plan: Continue same medications and dosages. Use CO and positive reinforcement to encourage harm reduction use of ETOH and or sobriety. Recommend AA and other sports coach or instructor. Assessment & Plan (04/09/2024 9:55 AM EST): Denies cravings Supposed to meet with other sports coach or instructor today but will reschedule due to illness Assessment & Plan (04/04/2024 1:59 PM EST): A: Sober, denies cravings to use. Plan: Continue same medications and dosages. Use CO and positive reinforcement to encourage harm reduction use of ETOH and or sobriety. Recommend AA and other sports coach or instructor. Assessment & Plan (04/02/2024 11:47 AM EST): Denies cravings Assessment & Plan (03/28/2024 2:03 PM EST): A: Sober, denies cravings to use. Plan: Continue same medications and dosages. Use CO and positive reinforcement to encourage harm reduction use of ETOH and or sobriety. Recommend AA and other sports coach or instructor. Assessment & Plan (03/25/2024 9:27 AM EST): Denies cravings Encouraged recovery supports, meetings Continue discussion regarding LUIS Assessment & Plan (03/17/2024 11:18 AM EST): Denies cravings Encouraged building recovery supports, meetings Plan to discuss LUIS Assessment & Plan (03/14/2024 2:28 PM EST): Recent relapse Denies cravings presently Topamax discontinued recently due to no reported benefit, pt preference Encourage rebuilding recovery support network, meetings Plan to discuss LUIS Assessment & Plan (03/13/2024 9:13 PM EST): Recent relapse, now states no cravings With no clear benefit from topamax, pt desire to stop med, and polypharmacy, will d/c med. Encourage meetings Assessment & Plan (01/22/2024 10:13 AM EDT): A) Ongoing use patterns that are detrimental to his health. P) Pt precontemplative about change, I'm a drinker, that's just who I am. Declines referrals or rx for now. Assessment & Plan (01/21/2024 11:20 AM EDT): + breathalyzer on return from dialysis over the weekend, very low YANG Patient discharging from [facility] program today so no further disciplinary action taken, however reviewed concerns of patient's past substance use and resultant loss of housing, frequent hospitalizations Encouraged to consider restarting [facility]IS, declines at this time Encouraged use of recovery supports Assessment & Plan (01/17/2024 12:34 PM EDT): Stable during admission History of struggling after discharge and independent Planned discharge next week, continue discussion regarding support, LUIS Assessment & Plan (01/15/2024 11:07 AM EDT): Stable during admission History of struggling after discharge and independent Planned discharge next week, continue discussion regarding support Assessment & Plan (01/09/2024 11:03 AM EDT): Stable Denies cravings Continue breathalyzer after outings Encouraged use of recovery supports Declines LUIS Assessment & Plan (01/08/2024 1:41 PM EDT): Denies cravings Continue regular UDS, breathalyzer Encouraged AUD supports Continues topiramate F/u with Ketan Hooper today Assessment & Plan (2024 11:17 AM EDT): Breathalyzer results consistently negative Continue testing when returning from appointments Encouraged AUD supports Continue topiramate F/u with Ketan G as scheduled Assessment & Plan (01/01/2024 11:58 AM EDT): Stable in program Encouraged to engage in supports for when he eventually discharges from program as he tends to do well here and relapse once on his own again Continue breathalyzer upon return from outings Continue topiramate Assessment & Plan (12/28/2023 11:43 AM EDT): Rajiv cravings or current use Continue follow up with psychopharm Assessment & Plan (12/25/2023 11:44 AM EDT): Denies cravings Denies current use Currently on topiramate Follow up with Ketan Hooper as scheduled Assessment & Plan (12/24/2023 11:17 AM EDT): A) Not currently thinking about drinking, but pt historically has started using again once he leaves a structured setting like [facility]. P) Increase topiramate. Assessment & Plan (12/20/2023 3:33 PM EDT): Denies cravings Info given for resources ([employer] [employer], [employer] ), pt has not contacted yet Assessment & Plan (12/18/2023 10:06 AM EDT): Denies cravings Has info for other sports coach or instructor at [employer], encouraged to contact Plan to go to [facility] for intake with [facility] Assessment & Plan (12/17/2023 11:31 AM EDT): A) Ongoing cravings but pt denies recent use. P) Start low-dose topiramate per recommendations for Up to Date for hemodialysis: For topiramate (off-label): Hemodialysis, intermittent (thrice weekly): Dialyzable (50%) (Ref): Oral: Reduce dose to 50% of the indication-specific usual dose and titrate more slowly. Since topiramate is significantly cleared by hemodialysis, supplemental doses (eg, 50% of the total daily dose) post hemodialysis are recommended (Ref). Assessment & Plan (12/12/2023 6:08 PM EDT): Recent relapse Sober since hospitalization Encouraged contacting other sports coach or instructor Consider other supports for after discharge Pt goal is not total abstinence, reviewed his personal history of alcohol use and numerous evictions, hospitalizations that directly resulted from etoh Consider discussing restarting naltrexone to help reduce total amount drank Assessment & Plan (12/11/2023 11:47 AM EDT): A) Drank over the weekend, missed dialysis and had to go to hospital. Pt seems more ambivalent, describes self as a blackout drunk and assumes he will drink again when he leaves [facility]. P) Vivitrol has been ineffective in the past, pt declines. Per UptoDate, acamprosate is contraindicated with pt's current renal function. For topiramate (off-label): Hemodialysis, intermittent (thrice weekly): Dialyzable (50%) (Ref): Oral: Reduce dose to 50% of the indication-specific usual dose and titrate more slowly. Since topiramate is significantly cleared by hemodialysis, supplemental doses (eg, 50% of the total daily dose) post hemodialysis are recommended (Ref). For gabapentin (off-label for AUD): Hemodialysis, intermittent (thrice weekly): Dialyzable (50% over 4 hours (Ref)): Initial: 100 mg 3 times per week after hemodialysis. Titrate to effect up to 300 mg 3 times per week given after hemodialysis on dialysis days (Ref). Note: Some experts recommend cautious titration to a maximum of 300 mg/day in select patients requiring additional pain control (Ref). For zonisamide (off-label): Oral: Limited data available; consider alternative agents or use with caution. No initial dosage adjustment necessary; administer as a once daily dose; when scheduled dose falls on a dialysis day, administer after dialysis. Utilize a slow titration and frequent monitoring of tolerability and response. Consider a supplemental dose if seizures occur following dialysis sessions (Ref). Consider therapeutic drug monitoring (when available) to optimize dose, to evaluate drug removal by dialysis in patients with post-hemodialysis seizures, and/or to monitor for toxicity For now, pt declines medication but will continue to discuss off-label options. 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 Plan: Continue same medications and dosages. Use CO and positive reinforcement to encourage harm reduction use of ETOH and or sobriety. Recommend AA and other sports coach or instructor. Assessment & Plan (11/21/2023 10:38 AM EDT): Stable Denies cravings Applauded on continued abstinence Assessment & Plan (11/16/2023 9:27 AM EDT): A: Sober, denies cravings to use. Plan: Continue same medications and dosages. Use CO and positive reinforcement to encourage harm reduction use of ETOH and or sobriety. Recommend AA and other sports coach or instructor. Assessment & Plan (11/12/2023 3:36 PM EDT): Denies cravings Encouraged use of recovery supports Not interested in LUIS at this time Assessment & Plan (11/07/2023 11:06 AM EDT): Denies cravings, notes while in [facility] feels stable Assessment & Plan (11/01/2023 11:11 AM EDT): Recent relapse Not interested in LUIS Encouraged to meet with Laura other sports coach or instructor Assessment & Plan (10/30/2023 2:37 PM EDT): Denies cravings Not interested in LUIS Encouraged meeting with Laura other sports coach or instructor Assessment & Plan (10/25/2023 4:11 PM EDT): Relapse now s/p Assessment & Plan (10/18/2023 10:44 AM EDT): 6+ months without etoh! Applauded on continued success with abstinence Encouraged continued engagement with other sports coach or instructor, Dominque Not interested in LUIS presently Assessment & Plan (10/15/2023 10:47 AM EDT): Ongoing cravings but maintaining sobriety Congratulated on 6+ months without etoh Encouraged use of supports (previously met with Laura [facility] other sports coach or instructor) Not interested in LUIS at this time Assessment & Plan (10/12/2023 11:37 AM EDT): Reports cravings, however maintaining abstinence Congratulated on 6+ months without etoh! Continue to encourage use of supports Continue discussion re: [facility]IS Residential staff to administer breathalyzer upon return from outing tonight Assessment & Plan (10/11/2023 11:37 AM EDT): Denies etoh cravings at this time or and use Assessment & Plan (10/08/2023 10:27 AM EDT): Reports continued abstinence Declines further supports at this time Due to relapse on cocaine recently and syncopal episode, will include etoh testing in urine Assessment & Plan (10/03/2023 6:13 PM EDT): 6 months alcohol free! Applauded on continued success Encouraged use of recovery resources such as [facility] Assessment & Plan (09/26/2023 11:10 AM EDT): 6 months alcohol free! Applauded on this success! Pt interested in meeting with other sports coach or instructor in light of recent cocaine use, will msg to set up meeting Assessment & Plan (09/25/2023 11:44 AM EDT): No recent use Reports sobriety from alcohol is top priority Encouraged to reach out to other sports coach or instructor given recent cocaine use Encourage AA meetings Assessment & Plan (09/24/2023 3:02 PM EDT): No recent etoh Met with sober head men's tennis coach and has contact info Not on LUIS, declines at this time Encouraged building supports for when he is on his own Assessment & Plan (09/18/2023 2:46 PM EDT): Stable, denies cravings Meeting with other sports coach or instructor this week Declines LUIS at this time Assessment & Plan (09/18/2023 10:45 AM EDT): No recent use Following with other sports coach or instructor - has appt tomorrow Will continue to check in Assessment & Plan (09/04/2023 11:00 AM EDT): No recent use Girlfriend does drink and use drugs but pt does not feel this will impact his recovery Has a other sports coach or instructor but doesn't want to reach out to her currently, will reach out if he feels like he needs it Assessment & Plan (08/28/2023 9:49 AM EDT): A) Continues to maintain sobriety, no cravings or concerns. P) Continue to check in about alcohol use, relapse prevention strategies. Assessment & Plan (08/28/2023 9:34 AM EDT): No recent use Congratulated on efforts Aware of other sports coach or instructor appt tomorrow Assessment & Plan (08/17/2023 12:46 PM EDT): A: Sober, denies cravings to use. Plan: Continue same medications and dosages. Use CO and positive reinforcement to encourage harm reduction use of ETOH and or sobriety. Recommend AA and other sports coach or instructor. Assessment & Plan (08/10/2023 10:55 AM EDT): A: Sober, denies cravings to use. Plan: Continue same medications and dosages. Use CO and positive reinforcement to encourage harm reduction use of ETOH and or sobriety. Recommend AA and other sports coach or instructor. Assessment & Plan (08/08/2023 4:11 PM EDT): Continues to be motivated to avoid alcohol No use since a few weeks ago Encouraged ongoing meeting attendance Assessment & Plan (08/03/2023 9:32 AM EDT): A: Relapsed a week ago Plan: Continue same medications and dosages. Use CO and positive reinforcement to encourage harm reduction use of ETOH and or sobriety. Recommend AA and other sports coach or instructor. Assessment & Plan (08/01/2023 6:35 PM EDT): 0.00% on breathalyzer Meeting with Laura therapist at [facility] Encouraged to continue engaging with supports Continue with meetings as able as depression symptoms improve Assessment & Plan (07/31/2023 9:50 AM EDT): Recent relapse, seen at outside hospital 07/25 Has supports: reached out to other sports coach or instructor once, plans to continue when he feels he needs support Hard to get to meetings right now due to significant depression Pt feels like he has made progress in his alcohol use, proud of his accomplishment of previously quitting for such a long period Will continue to provide support while at [facility] Assessment & Plan (07/27/2023 11:43 AM EDT): Relapse yesterday, drank a pint of vodka Feelings of strong guilt Encouraged pt not to be too hard on self, relapse is common and part of recovery for many individuals, be proud of the lengthy period of sobriety attained Continue meetings with supports Appears largely tied to depression, encouraged to consider dual diagnosis program Assessment & Plan (07/27/2023 9:32 AM EDT): A: Relapsed one day ago. Plan: Continue same medications and dosages. Use CO and positive reinforcement to encourage harm reduction use of ETOH and or sobriety. Recommend AA and other sports coach or instructor. Assessment & Plan (07/24/2023 12:47 PM EDT): Continues to avoid alcohol Congratulated on progress Encouraged to reach out to recover head men's tennis coach for ongoing support Assessment & Plan (07/23/2023 12:39 PM EDT): 111 days sober!! Congratulated on continued progress Encouraged to engage with [facility] sober head men's tennis coach Assessment & Plan (07/19/2023 2:11 PM EDT): 107 days sober!!! Continue CO Open to other sports coach or instructor through [facility] Assessment & Plan (07/17/2023 1:17 PM EDT): 106 days without alcohol use hitting coach reached out to him, he plans to make contact with her when he will be leaving Congratulated on efforts Assessment & Plan (07/13/2023 11:33 AM EDT): Remains sober, has achieved 3 months sober! Commended efforts, encouraged to continue Denies cravings. Assessment & Plan (07/11/2023 10:31 AM EDT): Congratulated on 100 days without alcohol use!!! Discussed building support network to help maintain recovery after [facility] Recovery coaches were messaged by provider earlier in the week and will reach out to patient Assessment & Plan (07/10/2023 12:01 PM EDT): Tomorrow will be 100 days without alcohol use! Congratulated on efforts Would be open to other sports coach or instructor to support his recovery when he discharges Message sent to other sports coach or instructor Feliciano Assessment & Plan (07/06/2023 12:06 PM EDT): Over 90 days sober!! Congratulated on continued sobriety Has father and cyanide case hardener as supports Encouraged to attend meetings and consider getting a sponsor Assessment & Plan (07/04/2023 10:24 AM EDT): Over 90 days sober!!! Congratulated on progress in sobriety Has father and cyanide case hardener as supports Encouraged to attend meetings and consider getting a sponsor Assessment & Plan (06/27/2023 1:56 PM EDT): Has over 80 days sober, Identifies his father and cyanide case hardener as supports. Congratulated for accomplishment. Feeling hopeful for future with getting a safe place to live with his father. Assessment & Plan (06/26/2023 12:10 PM EDT): Continues to report marked improvement in cravings 85 days without a drink Congratulated on efforts and encouraged ongoing work Assessment & Plan (06/26/2023 10:48 AM EDT): A) Maintaining sobriety. P) Continue current supports at [facility]. Assessment & Plan (06/25/2023 2:30 PM EDT): Has 84 days sober today, congratulated on this achievement. Not having any cravings at this time. Has motivation as he was told he will be placed on the transplant list when he achieves 6 months sober. His father is a support and he is going to visit him today Assessment & Plan (06/22/2023 10:24 AM EDT): 81 days sober!! Congratulated on progress in recovery Encouraged use of supports Patient is motivated to get onto transplant list and needs to achieve 6 months sobriety for this Assessment & Plan (06/20/2023 1:34 PM EDT): Has 79 days sober today, congratulated on this achievement. Not having any cravings at this time. Has motivation as he was told he will be placed on the transplant list when he achieves 6 months sober Assessment & Plan (06/19/2023 9:28 AM EDT): No alcohol use since admission on 04/02 Continues with recovery supports Denies cravings Assessment & Plan (06/18/2023 3:26 PM EDT): >70 days ETOH-free Congratulated on continued abstinence Encouraged to continue with current supports Assessment & Plan (06/12/2023 3:16 PM EDT): No alcohol use for 70+ days Congratulated on progress Continue with current supports Assessment & Plan (06/11/2023 2:37 PM EDT): Pt states he has 77 days sober. Goes to a recovery group down the street, states he has no cravings. Reports he is able to 'play the tape through' when considering a first drink, knows that it leads to nowhere good. States AA hasn't worked great for him in the past, but he 'can go once a week', knows it's 'not going to hurt' him. This RN offered to connect him to other men in recovery to try out other meetings, see if he can find one that works for him, pt states he'll think about it. Assessment & Plan (06/08/2023 10:38 AM EDT): Maintaining abstinence for etoh while at [facility] Congratulated on 70 days Encouraged to continue AA meetings with Iris and exploring other recovery supports Assessment & Plan (06/06/2023 5:34 PM EDT): Congratulated on 70 days abstinent from ETOH Encouraged to continue AA meetings with Iris Plan to connect with [facility] other sports coach or instructor soon Assessment & Plan (06/05/2023 11:29 AM EDT): A) Maintaining sobriety while at [facility]. P) Continue current rx. Assessment & Plan (06/04/2023 7:48 PM EDT): 70 days without ETOH Applauded on continued abstinence Encouraged continued AA meetings Assessment & Plan (06/01/2023 12:00 PM EST): 67 days without ETOH Commended efforts, encouraged to conitnue Assessment & Plan (05/30/2023 6:46 PM EST): 65 days without any ETOH Applauded on his continued sobriety Encouraged continued use of suppots (Iris + AA meetings, other sports coach or instructor, ) Assessment & Plan (05/29/2023 11:24 AM EST): 64 days without alcohol use Congratulated on progress Continue with supports, meetings Assessment & Plan (05/28/2023 7:46 PM EST): Stable Congratulated on 63 days sober!! Encouraged continued attendance at AA and utilizing supports (Iris, Ed, others) Open to [facility] other sports coach or instructor Assessment & Plan (05/28/2023 11:09 AM EST): Assessment: Hx of dep, alcohol use, currently no use Current Risk Assessment (if positive complete C-SSRS): None - no suicidal ideation. Plan details: Type of therapy: individual Frequency: bi-weekly Expected Duration in months (range): will reassess in 6mo Specific comments (if any): Assessment & Plan (05/25/2023 12:41 PM EST): Psychological condition is improving with treatment and lifestyle change Plan: Continue same medications and dosages. Use CO and positive reinforcement to encourage harm reduction use of ETOH and or sobriety. Recommend AA and other sports coach or instructor. Psychological condition will be reassessed at the next regular appointment. Assessment & Plan (05/25/2023 12:10 PM EST): Remains abstinent from ETOH, commended efforts Concerns of worsening depression as tends to relapse during this time Declines LUIS however req adjustment to other meds (see sep entry) Assessment & Plan (05/25/2023 9:57 AM EST): Congratulated on 2 months alcohol-free! Not interested in LUIS Will continue discussion regarding connecting patient with either [facility] or [place] resources (other sports coach or instructor, therapy, support groups) Assessment & Plan (05/18/2023 2:12 PM EST): No etoh in > 50 days Effort applauded Continue with current supports Assessment & Plan (05/15/2023 2:39 PM EST): No alcohol use x50 days Congratulated on progress Continue with current supports Assessment & Plan (05/15/2023 10:32 AM EST): > 40 days without Etoh Congratulated on continued sobriety Denies cravings Continue CO Assessment & Plan (05/11/2023 1:47 PM EST): 46 days without ETOH Denies cravings, doing well Continue with current regimen and supports Assessment & Plan (05/08/2023 10:22 AM EST): 43 days without alcohol Denies cravings Continue with current supports Assessment & Plan (05/07/2023 8:56 PM EST): Stable Denies cravings Continue CO Encouraged to build supports (meetings, sober coaches) Assessment & Plan (05/01/2023 6:08 PM EST): Assessment: Hx of dep, alcohol use, currently no use in over 4 weeks Current Risk Assessment (if positive complete C-SSRS): None - no suicidal ideation. Plan details: Type of therapy: individual Frequency: bi-weekly Expected Duration in months (range): will reassess in 6mo Specific comments (if any): Assessment & Plan (05/01/2023 10:33 AM EST): No alcohol for 36 days, congratulated on progress! Denies any cravings Continue to f/u with meetings, sponsors Has liver ultrasound scheduled for tomorrow, pt will plan to set up a ride Assessment & Plan (04/30/2023 3:53 PM EST): 35 days without alcohol! Efforts applauded Continue CO Encouraged meetings 05/02 liver U/S 08/15 EGD/colo Labs ordered, pt aware and will get drawn this week Assessment & Plan (04/24/2023 9:51 AM EST): 29 days without alcohol Congratulated on efforts Plans to go to a meeting tomorrow to get his chip Assessment & Plan (04/23/2023 3:59 PM EST): Stable 28 days sober Denies cravings Encouraged AA meetings, finding a sponsor Assessment & Plan (04/20/2023 11:28 AM EST): Doing well, 25 days sober Denies cravings Encouraged meetings Continue to monitor Assessment & Plan (04/19/2023 9:46 PM EST): Cravings stable, no current triggers. Encouraged to seek meetings, find sponsor Assessment & Plan (04/19/2023 3:24 PM EST): Stable Denies cravings Not interested in LUIS Applauded on continued sobriety Therapy appts pending Encouraged getting a sponsor Assessment & Plan (04/17/2023 1:00 PM EST): Denies cravings Not interested in LUIS Applauded on continued sobriety Therapy appts pending Assessment & Plan (04/17/2023 9:47 AM EST): 22 days without alcohol, congratulated on progress Denies cravings Continue current treatment Assessment & Plan (04/16/2023 12:00 PM EST): A) Maintaining sobriety while at [facility]. P) Continue current rx, encouraged AA attendance even if not currently experiencing cravings. Assessment & Plan (04/16/2023 11:54 AM EST): Stable Applauded progress Not interested in LUIS at this time Encouraged meetings Assessment & Plan (04/13/2023 11:46 AM EST): Doing very well at this time Commended efforts Denies craving on current medication regimen Encouraged AA meetings Continue to monitor Assessment & Plan (04/12/2023 10:26 AM EST): No cravings on medication regimen. Reporting benefit from zyprexa Encouraged to restart AA and long-term recovery efforts Assessment & Plan (04/10/2023 11:58 AM EST): A) Sober while at [facility], ambivalent about next steps to support his sobriety. P) Pt says he will think about going back to meetings, may go with a peer from [facility]. Assessment & Plan (04/10/2023 11:45 AM EST): Stable at present Not interested in AA/meetings due to past experiences Encouraged continued meetings with Group and 1:1 therapy referrals pending Assessment & Plan (04/06/2023 10:50 AM EST): Psychological condition is improving with treatment and lifestyle change Plan: Continue same medications and dosages. Use CO and positive reinforcement to encourage harm reduction use of ETOH and or sobriety. Recommend AA and other sports coach or instructor. Psychological condition will be reassessed at the next regular appointment. Assessment & Plan (04/06/2023 10:35 AM EST): Feeling stable in abstinence Not interested in LUIS presently Encouraged restarting AA, finding a sponsor Assessment & Plan (04/05/2023 12:09 PM EST): Feeling stable in symptoms, cravings Not on LUIS Encouraged restarting AA, seeking sponsor Assessment & Plan (04/04/2023 12:14 PM EST): Maintaining sobriety since recent hospital detox Declined IOP, LUIS for now Today voiced interested in [facility] sober head men's tennis coach Plans to do intake with [facility] Assessment & Plan (04/03/2023 12:16 PM EST): A) Sober after last hospitalization but history of significant ETOH use. P) Pt declines IOP, medication for now as they have been only partially effective. Referred pt to mindfulness recovery group. Pt ambivalent about AA and/or other sports coach or instructor right now. Assessment & Plan (04/03/2023 11:10 AM EST): Last drink / Underwent detox at [facility] Pt motivated to stay abstinent Referred to previously, message sent to Ketan Verde about follow-up Assessment & Plan (03/30/2023 2:25 PM EST): Significant reduction in daily amount, though still daily intake Denies withdrawal sxs during brief periods of abstinence recently Plans to detox at [facility] over the weekend [facility] will plan for admission from detox Assessment & Plan (03/27/2023 5:18 PM EST): Reports significant reduction in daily drinking, now down to 1/2 pint liquor (~4 beers) per day Discussed [facility] may require detox before admission, patient open to this plan Assessment & Plan (10/30/2022 9:41 AM EDT): Struggling recently relapsed Does not wish to restart LUIS Will continue discussion re detox/[facility] Assessment & Plan (09/27/2022 1:40 PM EDT): Poorly controlled Not on LUIS d/t concern of kidney health Resistant to therapy Recovery supports reviewed but pt does not follow up with meetings, sponsors, other sports coach or instructor Continue discussion Assessment & Plan (09/22/2022 12:27 PM EDT): A) Patient relapsed on ETOH 9 days ago. No ETOH for9 days. Denies cravings to use ETOH P) Strongly encouraged follow-up with therapist, other sports coach or instructor, and other supports. Use CO and positive reinforcement to encourage harm reduction use of ETOH and or sobriety. Assessment & Plan (09/21/2022 12:34 PM EDT): Denies cravings Continue discussion re: support network, relapse prevention plan, getting a sponsor Not on LUIS citing concern for kidneys Assessment & Plan (09/20/2022 2:23 PM EDT): Denies cravings Would benefit greatly from support network and relapse prevention plan Continue meeting with Dianne MARK Not on LUIS d/t kidney concerns Assessment & Plan (09/19/2022 3:13 PM EDT): Denies cravings Contemplating meetings, getting sponsor Continue recovery discussion Meet with Dianne MARK Assessment & Plan (09/18/2022 2:44 PM EDT): S/p relapse last week Denies cravings Not on LUIS, cites concern for kidneys Continue discussion re: other sports coach or instructor, sponsor, support system Assessment & Plan (09/15/2022 11:19 AM EDT): Relapsed 2 days ago Declines medication or BH to help assist with recovery Will continue monitoring and continue to offer supports Assessment & Plan (09/15/2022 10:50 AM EDT): A) Patient relapsed on ETOH two days ago. No ETOH for two days. Denies cravings to use ETOH P) Strongly encouraged follow-up with therapist, other sports coach or instructor, and other supports. Use CO and positive reinforcement to encourage harm reduction use of ETOH and or sobriety. Assessment & Plan (09/14/2022 12:49 PM EDT): Recent relapse, possibly d/t worsening depression Not interested in LUIS right now Not interested in AA 09/16 Dianne MARK appt, continue discussion re sobriety plan Assessment & Plan (09/13/2022 2:36 PM EDT): Etoh use today, low YANG, not altered Pt open to reconnect with other sports coach or instructor, AA meeting Sunday Written warning given, discharge or ER if behaviorally inappropriate/AMS Assessment & Plan (09/12/2022 11:28 AM EDT): A) Maintaining sobriety while at [facility]. P) Strongly encouraged follow-up with therapist, other sports coach or instructor, and other supports. Assessment & Plan (09/12/2022 10:02 AM EDT): Contmplative about going to AA meetings I will speak with the other sports coach or instructor to encourage engagement with pt. Continue conversation, CO Assessment & Plan (09/07/2022 1:03 PM EDT): Motivated to build out support network Encouraged reaching out to Brett, recover head men's tennis coach, and attend AA meeting tomorrow and ask for a sponsor Continue discussing coping skills, relapse prevention Assessment & Plan (09/05/2022 11:21 AM EDT): A) Concerned about drinking again when he leaves [facility], + cravings. P) Referred pt to speak with other sports coach or instructor. Assessment & Plan (09/05/2022 9:41 AM EDT): High risk for relapse when leaving [facility] Will continue to work on depression with R Ammon Will have a WHO with other sports coach or instructor soon Continue to encourage going to meetings to find a sponsor, but he is lacking motivation at this time. Continue CO Assessment & Plan (09/01/2022 10:08 AM EDT): 53 days sober! Commended patient Verbalizing desire to continue being sober Encouraged AA meetings to help with recovery Assessment & Plan (08/29/2022 11:52 AM EDT): Stable while at [facility], but admits to potential for relapse when finding housing. Reviewed importance of attending AA F/u with psych for med adjustments Assessment & Plan (08/28/2022 2:29 PM EDT): Stable, denies cravings Not on LUIS d/t kidney concerns Relapse prevention plan not formed, continue discussion Encourage getting sponsor Assessment & Plan (08/25/2022 3:55 PM EDT): Stable, denies cravings Historically relapses once living alone again Continue discussing relapse prevention plan, getting sponsor Not on LUIS d/t kidney concerns Assessment & Plan (08/25/2022 9:43 AM EDT): 46 days sober! Denies cravings Verbalizing desire to stay sober Commended, continues to denies meds, support groups, will continue to recommend Assessment & Plan (08/23/2022 3:15 PM EDT): Stable at [facility] Continue discussing relapse prevention plan, getting a sponsor Assessment & Plan (08/22/2022 11:41 AM EDT): Minimizes potential consequences with d/c from [facility] and relapse when interacting with gf. Review relapse prevention plan Assessment & Plan (08/21/2022 7:03 PM EDT): Stable, denies cravings Continue discussion re: relapse prevention plan, getting new sponsor Not on LUIS d/t concern of kidney damage Assessment & Plan (08/18/2022 12:17 PM EDT): 39 days sober! Commended efforts Declines meds, meetings Feels as though stable and eager to continue without ETOH as doesn't feel depressed Assessment & Plan (08/15/2022 9:58 AM EDT): Reports stable, no cravings, but this is in an ideal environment. Reviewed relapse prevention plan Encouraged to go to Sunday meeting, or daily 10AM meeting for sponsor Assessment & Plan (08/14/2022 3:02 PM EDT): Denies cravings Not on LUIS d/t risk of kidney damage Continue discussing relapse prevention plan, getting sponsor, etc Assessment & Plan (08/11/2022 11:59 AM EDT): No cravings reviewed plan with patient He is >50% on going to a meeting today and looking for a sponsor Has PRN naltrexone in case of cravings Assessment & Plan (08/11/2022 10:33 AM EDT): 1 month sober! Denies cravings Could benefit from relapse prevention plan, continue discussion, will work on getting new sponsor at a meeting soon Assessment & Plan (08/09/2022 10:14 AM EDT): 30 days sober! Denies cravings Verbalizes desire to abstain from ETOH Commended efforts, declines any meeting, encouraged Continue to monitor Assessment & Plan (08/07/2022 3:28 PM EDT): Denies cravings Not on LUIS d/t concerns over kidney damage Does not find meetings helpful Assessment & Plan (08/04/2022 10:23 AM EDT): Stable Denies cravings Not on LUIS d/t concerns over kidneys Does not feel meetings help Assessment & Plan (08/02/2022 3:52 PM EDT): Denies cravings Not on LUIS due to risk of kidney damage per nephro Does not find meetings helpful Assessment & Plan (07/31/2022 2:00 PM EDT): Stable Denies cravings Not on LUIS per nephro recs Does not find meetings helpful Assessment & Plan (07/28/2022 3:58 PM EDT): Denies cravings Not on LUIS d/t kidney concerns after speaking with nephro Assessment & Plan (07/26/2022 3:22 PM EDT): Denies cravings Not on LUIS per nephro recommendations Assessment & Plan (07/25/2022 10:19 AM EDT): A) Fewer cravings overall, maintaining sobriety at [facility]. P) Vivitrol and acamprosate are not recommended by nephrology at this time as pt is on dialysis. Assessment & Plan (07/24/2022 10:44 PM EDT): Denies cravings Advised against vivitrol by nephro per pt Does not find groups helpful Assessment & Plan (07/21/2022 11:53 AM EDT): Commended being sober x 11 days; patient expressed being happy about this Encouraged to continue, Denies cravings Assessment & Plan (07/20/2022 2:47 PM EDT): Denies cravings Not on LUIS per corporate services manager recs Assessment & Plan (07/18/2022 11:21 AM EDT): Denies use or cravings with improvement of mood and being away from his triggers [facility]. Encouraged to consider Vivitrol again - would start with PO naltrexone for close monitoring of kidney function Assessment & Plan (07/17/2022 10:43 AM EDT): Denies cravings Not on LUIS at the moment Encouraged meetings Assessment & Plan (07/16/2022 9:48 PM EDT): Denies cravings Not on LUIS, fear of damaging kidneys further Encouraged meetings Continue CO Assessment & Plan (07/14/2022 11:52 AM EDT): Denies cravings Verbalizing desire to stay clean, declines medications Continue monitoring Assessment & Plan (07/13/2022 4:02 PM EDT): Denies cravings Does not want to restart any LUIS at the moment Not interested in meetings Assessment & Plan (04/07/2022 2:12 PM EST): Appears stable Does not like meetings Continue monthly vivitrol injections Connect with sober head men's tennis coach Assessment & Plan (04/04/2022 2:23 PM EST): Has been stable in recovery while in [facility] He is at risk of relapse when he finds housing, so would recommend continuing Vivitrol, though he reports concern for worsening kidney function Will continue to monitor Assessment & Plan (04/03/2022 2:48 PM EST): Appears stable Open to sober head men's tennis coach Wants to hold off on vivitrol d/t concern over kidney damage Assessment & Plan (03/30/2022 3:43 PM EST): Appears stable 04/01 next vivitrol injection Open to connecting with sober head men's tennis coach outside [facility] Assessment & Plan (03/28/2022 11:02 AM EST): A) Under reasonable control. P) Continue current rx. Assessment & Plan (03/16/2022 2:43 PM EST): Appears stable Encourage meetings Continue monthly vivitrol injection Claire, sober head men's tennis coach, connecting pt to ranulfo Ortizer head men's tennis coach Assessment & Plan (03/15/2022 3:47 PM EST): Stable Open to connecting with other sports coach or instructor, will get Les Mays contact info Continue monthly vivitrol Assessment & Plan (03/13/2022 2:56 PM EST): Appears stable Continue monthly vivitrol injections Encourage meetings Assessment & Plan (03/10/2022 2:18 PM EST): Appears stable Open to planning support structure outside [facility] (connect with Les Mays) Continue vivitrol Encourage meetings Assessment & Plan (03/09/2022 1:12 PM EST): Stable Open to connecting with Les Mays, other sports coach or instructor Continue monthly Vivitrol injections Encourage meetings Assessment & Plan (03/06/2022 3:17 PM EST): Stable vivitrol administered in clinic today Encourage meetings Assessment & Plan (03/03/2022 2:31 PM EST): Stable Denies cravings, but concerned how different it will be when he is on his own Advised speaking with Dianne DOMINGO re: sobriety planning Vivitrol ordered Assessment & Plan (03/02/2022 4:07 PM EST): Stable Due for Vivitrol, may administer when it arrives Assessment & Plan (02/28/2022 12:00 PM EST): Stable in recovery while at [facility] No reported cravings Will remove Vivitrol from med list Assessment & Plan (02/03/2022 11:53 AM EST): Denies cravings Remains on vivitrol Assessment & Plan (01/30/2022 3:28 PM EST): A) Denies cravings but pt has a lengthy history of use and high risk of recurrence. P) Vivitrol as scheduled. Assessment & Plan (01/17/2022 12:00 PM EDT): AUD on monthly vivitrol. Denies cravings. Last drink was 8 days ago. Feels cravings are controlled. Goal is either abstinence or occasionally use. Not interested in a residential program or IOP. Is engaged in AA on Fridays though more to keep busy and he is unsure if it is helpful. Wants to keep on with vivitrol and not interested in other pharmacotherapies. Drinks to cope with depression and feels depressed now -- continue monthly vivitrol -- continue with groups -- would like therapy while here -- optimize meds re: depression -- counseled on other residential and non-residential treatment options and uninterested at this time Assessment & Plan (01/16/2022 2:04 PM EDT): Continue monthly Vivitrol injections 01/17 addictions fellow appt Encourage AA meetings Assessment & Plan (01/10/2022 11:58 AM EDT): Struggling with use again but newly sober at [facility] Has benefited from Vivitrol in the past Reordered today by psych. For Vivitrol this week Restart AA meetings Assessment & Plan (11/22/2021 11:03 AM EDT): A) Pt reports cravings well-controlled on vivitrol. P) Continue vivitrol. Assessment & Plan (11/21/2021 1:34 PM EDT): Monthly vivitrol injections at [facility] Encourage AA meetings Continue CO/discussion of sobriety plan with pt Assessment & Plan (11/18/2021 11:54 AM EDT): Vivitrol injection today Encourage AA meetings Assessment & Plan (11/17/2021 12:58 PM EDT): Vivitrol injection tomorrow Encourage AA meetings Assessment & Plan (11/16/2021 3:03 PM EDT): vivitrol injection this week Encourage AA meetings Assessment & Plan (11/05/2021 7:19 PM EDT): Psychological condition is Improving with treatment, patient not having any cravings to drink ETOH since he received Vivitrol injection two weeks ago. Poor insight into how to maintain sobriety. Plan: Continue same medications and dosages. Use CO and positive reinforcement to encourage harm reduction use of etoh and or sobriety. Psychological condition will be reassessed at the next regular appointment. Assessment & Plan (11/04/2021 11:43 AM EDT): On Vivitrol Denies cravings Encouraged meetings Assessment & Plan (10/31/2021 10:07 AM EDT): Next vivitrol injection in 2 weeks Encourage AA meetings Assessment & Plan (10/28/2021 10:56 AM EDT): Next vivitrol injection in 2 weeks Encourage AA meetings Continue meeting with Dianne DOMINGO Assessment & Plan (10/27/2021 1:49 PM EDT): Next vivitrol injection in 2 weeks Encourage continued attendance at AA meetings Continue working with Dianne DOMINGO for help with skills to aid in managing cravings Assessment & Plan (10/24/2021 1:30 PM EDT): Some cravings, vivitrol helping Encourage meetings Assessment & Plan (10/23/2021 11:36 AM EDT): Psychological condition is unchanged, having cravings to drink etoh Plan: Continue same medications and dosages. Received vivitrol injection last week.. Use CO and positive reinforcement to encourage harm reduction use of etoh and or sobriety. Psychological condition will be reassessed at the next regular appointment. Assessment & Plan (10/21/2021 1:22 PM EDT): Strong cravings, 2/2 MDD per pt Seeing Debra today for medication mgmt Continue vivitrol Assessment & Plan (10/19/2021 12:33 PM EDT): Continue monthly vivitrol injections Encourage AA meetings Assessment & Plan (10/17/2021 1:27 PM EDT): Continue vivitrol Encourage AA meetings Assessment & Plan (10/16/2021 11:33 AM EDT): Psychological condition is improving with treatment Plan: Continue same medications and dosages. Received vivitrol injection today. Use CO and positive reinforcement to encourage harm reduction use of etoh and or sobriety. Psychological condition will be reassessed at the next regular appointment. Assessment & Plan (10/15/2021 1:45 PM EDT): Assessment: Pt presented at baseline. Limited insight, contemplation for stage of change. Current Risk Assessment (if positive complete C-SSRS): None - no suicidal ideation. Plan details: Type of therapy: Supportive, CO Frequency: TBD Expected Duration in months (range): TBD Specific comments (if any): Assessment & Plan (10/14/2021 12:08 PM EDT): Pt goal: Continue abstinence Restart Vivitrol Encourage AA meetings Assessment & Plan (10/14/2021 9:30 AM EDT): Now on day 2 of sobriety Agreeable to vivitrol; RN to administer Denies nausea or any sxs at this time Will continue to monitor while in program Assessment & Plan (10/13/2021 3:41 PM EDT): Pt goal is continued abstinence Plan for Vivitrol injection tomorrow Encourage AA meeting attendance Assessment & Plan (09/05/2021 1:45 PM EDT): A) Poor insight and plan as to discharge planning and relapse prevention. P) Continue Vivitrol on an outpatient basis. Assessment & Plan (08/08/2021 3:57 PM EDT): Assessment: Pt presented with limited insight into his relapse prevention plans. He reported that he is moving on 08/09/21. Pt was receptive to attending AA meetings, getting a sponsor, and continuing to work with clinician post [facility]. Current Risk Assessment (if positive complete C-SSRS): None - no suicidal ideation. Plan details: Type of therapy: Supportive and Motivational Interviewing Frequency: TBD Expected Duration in months (range): 3-6 months Specific comments (if any): Assessment & Plan (08/08/2021 11:36 AM EDT): CMP today to check kidney, liver function Vivatrol pending lab results Encourage AA meetings Assessment & Plan (08/02/2021 1:26 PM EDT): Encourage AA meetings Continue vivitrol injections Appt with Dianne Sunday Assessment & Plan (07/15/2021 10:30 AM EDT): Continue vivitrol Encourage meetings Assessment & Plan (07/13/2021 3:55 PM EDT): A: Currently sober x 73 days, on vivitrol injection. P: Continue with current treatment. Encouraged pt with continued sobriety. Assessment & Plan (07/11/2021 2:46 PM EDT): Continue vivitrol Encourage pt to attend meetings (AA, SMART) Assessment & Plan (07/08/2021 12:26 PM EDT): Doing well, 70 days sober! Commended! Continue with vivitrol and AA meeetings Assessment & Plan (07/05/2021 10:53 AM EDT): Encourage AA meeting attendance Vivitrol injection planned for 07/07 Assessment & Plan (07/04/2021 12:54 PM EDT): Stable. More than 60 days sober. Amenable to another vivitrol injection on 07/06/21 Assessment & Plan (06/18/2021 2:44 PM EDT): Assessment: Pt presented with some concerns about independent living and maintaining his recovery. Current Risk Assessment (if positive complete C-SSRS): None - no suicidal ideation. Plan details: Type of therapy: Motivational Interviewing and supportive therapy. Frequency: TBD Expected Duration in months (range): TBD Specific comments (if any): Assessment & Plan (06/14/2021 9:48 AM EDT): Stable in recovery while closely monitored. He is seeking housing which may put him at elevated risk for relapse Continue AA Assessment & Plan (06/07/2021 11:39 PM EDT): Early remission and recently started on Vivitrol Applauded efforts Continue meetings as able Assessment & Plan (06/06/2021 3:44 PM EDT): A) Able to maintain sobriety with supports. P) Continue current rx, Vivitrol when able. Assessment & Plan (06/06/2021 9:06 AM EDT): Stable 37 days sober Will receive vivitrol injection today Assessment & Plan (06/03/2021 3:43 PM EST): Sober for 36 days, commended efforts, encouraged to continue Vivitrol has yet to be admin Will f/u with nursery technician & Plan (05/30/2021 8:44 AM EST): Has remained sober for 30 days, commended efforts Awaiting vivitrol Assessment & Plan (05/20/2021 7:45 PM EST): A) Sober while at [facility]. P) OK to start Vivitrol. Assessment & Plan (05/12/2021 8:14 AM EST): A) Pt reports sobriety since last ED visit. P) Remains at high risk for recurrence of use, pt declines rx at this time. Pt aware of how to access detox and is aware that [facility] placement can be pursued if he is not in acute withdrawal. Assessment & Plan (05/10/2021 4:34 PM EST): Agreeable to naltrexone needs renal dosing, consider 25mg po daily and then vivatrol in 7 days. Messaged to review further. Pt was interested in campral but believe this would be worse for his kidneys. Assessment & Plan (05/09/2021 4:31 PM EST): 10 days sober Interested in a other sports coach or instructor- spoke with Claire Consider natrexone Assessment & Plan (05/02/2021 6:39 PM EST): A) Poorly controlled. P) Discussed that he will likely be able to stay at [facility] for help with stabilizing medical, BH, and psychosocial needs. but would need detox first. Pt verbalized understanding and is aware of how to access detox. He declined assistance at this time. Assessment & Plan (03/14/2021 1:01 PM EST): A) Pt drinking again with several ED visits since discharge from [facility]. P) Educated pt that Vivitrol doesn't block drinking behavior but may decrease cravings and overall use. Also discussed that he needs to put together other parts of his recovery plan - AA, other sports coach or instructor, etc. Pt agreed to continue Vivitrol. Will ordered and have sent to [facility]. Assessment & Plan (02/21/2021 7:37 PM EST): Doing well on vivitrol apart from some mild nausea Assessment & Plan (02/21/2021 2:19 PM EST): A) Pt reports he has been sober for about 3 weeks now. Thinks Vivitrol is helpful but has few supports in the community. P) Will try to see if pt can connect with a other sports coach or instructor to help support sobriety in the community. Assessment & Plan (02/16/2021 12:13 PM EST): Vivitrol last week Plans to continue sobriety Follow up with Ketan as scheduled Assessment & Plan (02/15/2021 10:09 PM EST): A) Pt reports high motivation to maintain sobriety. P) Vivitrol, pt states reconnecting with AA has been helpful. Assessment & Plan (02/11/2021 10:41 AM EST): Continues to await vivitrol infection RN to follow up with pharmacy, continue PO naltrexone PO for now Assessment & Plan (02/09/2021 9:31 AM EST): LFTs stable Awaiting vivitrol infections to begin, continue PO naltrexone for now. Assessment & Plan (02/07/2021 11:36 AM EST): Tolerating PO naltrexone without issue., Check lfts. Plan to transition to vivitrol once available later this week and d/c PO. Pt Agreeable to plan. Assessment & Plan (02/07/2021 5:45 AM EST): Continue PO naltrexone with plan to transition to vivitrol next week. Assessment & Plan (02/02/2021 2:38 PM EST): High risk for relapse in independent housing. Plan to restart PO naltrexone with plan to transition to vivitrol in about a week. Agreeable to plan. Encouraged to consider supportive, sober housing. Assessment & Plan (04/23/2020 4:43 PM EST): Psychological condition is worsening. Pt intoxicated at time of visit and declines treatment at this time, stating he is not ready to stop or cut down drinking right now. Plan: Pt declines rx but agrees to take thiamine and folic acid. Psychological condition will be reassessed at the next regular appointment. Assessment & Plan (09/03/2019 11:44 AM EDT): S/p 2 recent hospitalizations in past 2 weeks for this. Per patient, he has had 85 detoxes and has been in multiple programs in the past. He lasted 3 days in sober house. He wants help. He denies prior med use for abstinence. He would benefit from the [facility] program to try to address substance abuse issues and depression. Urgent referral made. . Assessment & Plan (06/06/2019 1:36 PM EDT): Psychological condition is partially controlled but still problematic.. Plan: Given past complications of alcohol withdrawal, recommended medically supervised detox. He will contact [facility], contact info given. Psychological condition will be reassessed at the next regular appointment. Assessment & Plan (04/04/2019 9:53 AM EST): Psychological condition is unchanged. Plan: Vivitrol due next week. May also ocnsider adding topiramate or acamprosate. Psychological condition will be reassessed at the next regular appointment. Assessment & Plan (11/18/2018 9:58 AM EDT): Well controlled on oral naltrexone. Given hx of poor med adherence when not at [facility] would benefit from restarting vivitrol but current insurance does not cover. In process of having changed, plan to switch to vivitrol when able. Continue to attend regular AA meetings. Plan to discharge to sober home in [place] this Sunday. Assessment & Plan (11/15/2018 9:10 PM EDT): Psychological condition is improved in a controlled setting. While he is very motivated to maintain sobriety, he struggles with insight into triggers for drinking in the community. . Plan: Continue current treatment regimen. Supported pt's plan for sober house. Psychological condition will be reassessed at the next regular appointment. Assessment & Plan (11/12/2018 11:18 AM EDT): Psychological condition is in remission in a controlled environment. . Plan: Continue current treatment regimen. Psychological condition will be reassessed at the next regular appointment. Assessment & Plan (11/11/2018 9:08 AM EDT): No cravings on naltrexone. Attending AA meetings. Well connected with Assessment & Plan (11/07/2018 12:26 PM EDT): Unable to fill vivitrol d/t insurance, in process of having it changed. In meantime, will start on oral naltrexone. Recent LFTs in hospital wnl. Attending AA meetings. Assessment & Plan (11/04/2018 11:06 AM EDT): Agreeable to restart vivitrol, recent lfts in hospital wnl. Plan to check quick cup prior to administration to ensure no opiates given in hospital. Plans to begin to attend AA meetings again. Assessment & Plan (11/01/2018 3:40 PM EDT): Psychological condition is worsening. Plan: Discussed vivitrol vs oral naltrexone using Ramirez method. Pt says he is up for anything. Will continue to review with team. Referred to therapy, unclear if he will go to [facility] or [facility]. Psychological condition will be reassessed at the next regular appointment. Assessment & Plan (10/06/2018 8:57 PM EDT): VSS. Mildly intoxicated during visit. Remorseful. Motivated to go to detox, and return to [facility] for support. Kt [place] to meet with patient early on Sunday morning to work on detox referrals. Reviewed red flag sx for which to seek immediate medical attention over the weekend. Assessment & Plan (08/16/2018 4:52 PM EDT): Psychological condition is improving with treatment. Plan: Continue current treatment regimen. Psychological condition will be reassessed at the next regular appointment. Assessment & Plan (08/01/2018 12:13 PM EDT): No cravings on naltrexone. Started campral in addition earlier this week. Rec'd vivitrol last Sunday without issue. Attending AA regularly and meeting with other sports coach or instructor. Plan for d/c next week Assessment & Plan (07/29/2018 10:10 AM EDT): No cravings on naltrexone. Rec'd vivitrol last Sunday without issue. Attending AA regularly and meeting with other sports coach or instructor. Assessment & Plan (07/29/2018 9:53 AM EDT): Psychological condition is improving with treatment. Plan: Continue AA, therapy referral pending. Continue Vivitrol. Will add acamprosate with reduced dose d/t impaired GFR. Psychological condition will be reassessed at the next regular appointment. Assessment & Plan (07/26/2018 2:50 PM EDT): A: Recent LFTs WNL. Denies recent opiate use. Reviewed risks associated with injection. P: Vivitrol injected into R glut without issue. Patient tolerated injection well. Check LFTs periodically. RTC in 28 days for repeat injection. Assessment & Plan (07/25/2018 4:18 PM EDT): No cravings on oral naltrexone, tolerating well. Plan to give vivitrol tomorrow. Wrote to [facility] staff encouraging pt be allowed to attend AA meetings. Will reach out to other sports coach or instructor. Assessment & Plan (07/22/2018 7:32 PM EDT): Psychological condition is improved in a controlled environment ([facility]). . Plan: Continue vivitrol as prescribed, but may consider augmenting with acamprosate. Will check BMP before starting acamprosate given history of electrolyte imbalances. Will refer to therapy as well per pt preference. Psychological condition will be reassessed at the next regular appointment. Assessment & Plan (07/18/2018 11:32 AM EDT): Motivated to restart naltrexone which he had extended period of sobriety on in the past. LFTs very mildly elevated on 07/15 at hospital, utox in hospital neg opiates and patient denies receiving any. Plan to restart oral naltrexone x 1 week, if week if well tolerated restart vivitrol. Assessment & Plan (07/16/2018 8:43 PM EDT): Relapsed several months ago during trip to [facility]. May be inearly withdrawal currently, given recent detox inpatient may not require formal detox prior to [facility] admission. Will assess in clinic tomorrow. Plan to recheck lfts, restart vivitrol luis. Assessment & Plan (04/27/2018 6:16 AM EST): A: Well controlled on current regimen, no cravings, no relapses. Interested in continuing vivitrol. No opiate use. P: Vivitrol administered by RN without complication. RTC in 28 days for repeat injection. Assessment & Plan (03/28/2018 11:19 AM EST): A: 97 days sober, few cravings, no relapses. Interested in continuing vivitrol. No opiate use. P: Check lfts at next blood draw, wnl 12/2017. Vivitrol injected into L glut without issue. Patient tolerated injection well. RTC in 28 days for repeat injection. Assessment & Plan (02/26/2018 11:16 AM EST): On vivitrol Continue AA and discussed meds Can get injection here or where currently getting - pts choice Follow-up monthly; sooner PRN Assessment & Plan (02/11/2018 9:21 AM EST): A: Recent LFTs WNL. Denies recent opiate use. Reviewed risks associated with injection. P: Vivitrol injected into R glut without issue. Patient tolerated injection well. Given card to keep in wallet and instructed to notify medical staff of this medication in case of emergency. Check LFTs periodically. RTC in 28 days for repeat injection. Assessment & Plan (02/04/2018 1:53 PM EST): Well controlled on vivitrol. Plan to administer next dose on 02/[address] [facility] Assessment & Plan (01/28/2018 9:49 AM EST): A: 38 days sober. Good effect from vivitrol P: Congratulated on efforts. Plan to continue vivitrol. Assessment & Plan (01/17/2018 4:25 PM EDT): A: Over 30 days sober without cravings to drink. No adverse reaction from vivitrol P: Commended on accomplishment. Continue vivitrol injection q28 days. Assessment & Plan (01/14/2018 1:21 PM EDT): A: Well controlled on naltrexone. No cravings to use. Recent LFTs WNL. Denies recent opiate use. Reviewed risks associated with injection. P: Vivitrol injected into R glut without issue. Patient tolerated injection well. Check LFTs periodically. RTC in 28 days for repeat injection. Assessment & Plan (01/10/2018 1:56 PM EDT): A: Tolerating PO naltrexone without issue. P: Vivitrol administration on Sunday. Assessment & Plan (01/09/2018 3:02 PM EDT): A: Sober for over two weeks while inpatient. Denies cravings to drink but does not have plans to maintain sobriety [facility]. Recent LFTs wnl. P: Oral naltrexone for several days, if well tolerated, transition to vivitrol next week. Assessment & Plan (01/07/2018 8:40 PM EDT): A: Sober for over two weeks while inpatient. Denies cravings to drink but does not have plans to maintain sobriety [facility]. Recent LFTs wnl. P: Oral naltrexone for several days, if well tolerated, transition to vivitrol. Assessment & Plan (2018 11:27 AM EDT): Pt is not motivated to remain sober, but has been for 11 days Support given Referred to Follow-up with this office in 2-4 weeks; sooner PRN Homeless 10/31/2015 Overview (10/06/2018): Will lose apat as of 10/23/2018 Reports will be evicted 10/29/15. Is familiar with [facility] and states will not influence care. Assessment & Plan (11/27/2024 11:59 AM EDT): Patient is experiencing homelessness. Health impacts include: Worsened chronic disease mgmt and Limited access to healthcare Plan: Homeless Z59.0 added to the problem list Patient is moving into [facility] on 12/01! [employer] team helping get furniture and appliances Pt to change PT-1 address Vicki WILBER , will help set up rent autopay Assessment & Plan (11/20/2024 9:06 AM EDT): Patient is experiencing homelessness. Health impacts include: Worsened chronic disease mgmt and Limited access to healthcare Plan: Homeless Z59.0 added to the problem list Accepted housing! Plan to move in 12/01 to apartment in [place] Assessment & Plan (11/17/2024 11:59 AM EDT): Patient is experiencing homelessness. Health impacts include: Worsened chronic disease mgmt and Limited access to healthcare Plan: Homeless Z59.0 added to the problem list Moving into [facility] next week! Will check with RN regarding VNA/ALLIANCE DIRECTOR status Assessment & Plan (11/07/2024 10:35 AM EDT): Patient is experiencing homelessness. Health impacts include: Worsened chronic disease mgmt and Limited access to healthcare Plan: Deon Veronica added to the problem list Hoping to get accepted to unit in [place], waiting to hear back Assessment & Plan (11/05/2024 12:04 PM EDT): Patient is experiencing homelessness. Health impacts include: Worsened chronic disease mgmt and Limited access to healthcare Plan: Deon Veronica added to the problem list Moving into housing 11/24! Accepted apartment in [place] VNA ordered, RN to coordinate Will schedule [place] group meeting for discharge planning to support patient going forward Assessment & Plan (11/03/2024 1:21 PM EDT): Patient is experiencing homelessness. Health impacts include: Worsened chronic disease mgmt and Limited access to healthcare Plan: Deon Veronica added to the problem list Got apartment in [place]! Plan to move in November Assessment & Plan (10/16/2024 9:32 AM EDT): Patient is experiencing homelessness. Health impacts include: Worsened chronic disease mgmt and Limited access to healthcare Plan: Deon Veronica added to the problem list Working on getting copy of certificate to give to housing grant analyst Continue housing work with [facility] Getting debit card today Declines [facility], [facility] homes, sober house. Aware that he may need to make his own plan if he continues to decline housing options as he nears discharge date Assessment & Plan (10/02/2024 3:18 PM EDT): Patient is experiencing homelessness. Health impacts include: Worsened chronic disease mgmt and Limited access to healthcare Plan: Deon Veronica added to the problem list Continue housing applications with [facility], also working on rapid rehousing Looking into furnished room rentals on [facility] Assessment & Plan (08/14/2024 12:58 PM EDT): Patient is experiencing homelessness. Health impacts include: Worsened chronic disease mgmt and Limited access to healthcare Plan: Deon Veronica added to the problem list Continue market rate rental search Medically ready for discharge Assessment & Plan (07/31/2024 3:20 PM EDT): Patient is experiencing homelessness. Health impacts include: Worsened chronic disease mgmt and Limited access to healthcare Plan: Homeless Juliet.[email or web address] added to the problem list Medically ready for discharge Continue housing applications with [place] Searching for market rate room Assessment & Plan (07/16/2024 12:28 PM EDT): Still without housing. Visiting apartment in [place] today. -Continue to work with housing team Assessment & Plan (07/09/2024 9:56 AM EDT): Patient is experiencing homelessness. Health impacts include: Worsened chronic disease mgmt and Limited access to healthcare Plan: Homeless Juliet.Griffin added to the problem list Medically ready for discharge Continue housing search for private rental [facility] to call and reschedule Bandar appt Assessment & Plan (07/02/2024 2:05 PM EDT): Patient is experiencing homelessness, seeking apartment -Housing appointment moved to this Sunday (07/04/24) Assessment & Plan (06/25/2024 10:53 AM EDT): Patient is experiencing homelessness Residing at [facility] since approx 03/19/24 Patient goal is to find apartment -Appt with housing home care physical therapist scheduled for this Sunday (06/27/24) Assessment & Plan (06/20/2024 11:12 AM EDT): Patient is experiencing homelessness. Health impacts include: Worsened chronic disease mgmt and Limited access to healthcare Plan: Homeless [email or web address].Griffin added to the problem list Has access to income again Continue search for rental apartment Declines sober housing Assessment & Plan (06/05/2024 3:43 PM EDT): Patient is experiencing homelessness. Health impacts include: Worsened chronic disease mgmt and Limited access to healthcare Plan: Homeless Z59.Griffin added to the problem list Working on getting income back then plans to rent private apartment Assessment & Plan (06/02/2024 12:23 PM EDT): Patient is experiencing homelessness. Looking to rent private apartment Held up by loss of [facility] funds, waiting on rep payee to get approved through [facility], plans to go to their office today to get update Assessment & Plan (05/08/2024 12:11 PM EST): Patient is experiencing homelessness. Paperwork submitted with [facility] to establish rep payee Plans to rent private apartment $2700 / month income Declines [place] [facility], [facility] home, sober housing though would consider as emergency backup plan Assessment & Plan (05/07/2024 10:35 AM EST): Has appt with [facility] 05/08 to establish payee Assessment & Plan (01/21/2024 11:23 AM EDT): Patient is experiencing homelessness. Medically ready for discharge Plan to discharge to extended stay motel today and continue private apartment rental search Assessment & Plan (01/18/2024 11:47 AM EDT): Patient is experiencing homelessness. Plan originally to discharge to extended day motel on 01/20 how ever unable to afford termite control technician, continues searching for housing units In addition unable to obtain funds until Sunday Detention: patient not completely opposed but concerns of relapse secondary to environment Assessment & Plan (01/17/2024 12:36 PM EDT): Patient is experiencing homelessness. Medically ready for discharge Planned discharge to extended stay motel 01/20 while patient continues private apartment rental search Assessment & Plan (01/09/2024 11:05 AM EDT): Patient is experiencing homelessness. [facility] case management to meet with patient to explore extended stay motels this week as well as private rental apartments SCOTT: 01/15 Dispo: private rental or extended stay motel Assessment & Plan (2024 11:19 AM EDT): Patient is experiencing homelessness. Medically ready for discharge Encouraged patient to continue private apartment applications and plan to meet with BOZENA Serrano to look at motel and sober house options SCOTT: 2 weeks (01/15) Assessment & Plan (12/20/2023 3:38 PM EDT): Patient is experiencing homelessness. Medically ready for discharge Has all documents for housing application as of today Will submit application to [address] [place] [address], hoping to get unit in same building as [facility] Back up plan: [place] [facility] bed, private room rental, or motel stay Assessment & Plan (12/12/2023 6:11 PM EDT): Patient is experiencing homelessness. Medically ready for discharge Patient finishing application for unit in same building as father Plan to support him while waiting to hear back from that building mgmt Back up plan: [place] [facility] bed or private room rental Assessment & Plan (12/11/2023 12:08 PM EDT): Patient stated they are working on finding housing still. Reminded them about their DMV appointment scheduled for tomorrow for their license. Patient stated they are aware of the appointment tomorrow but is unsure what time it is at because they forgot. This RN stated that it can be checked on to see what time it is at so they do not miss it. Patient is worried about missing it and having to reschedule it which will make them wait longer. This RN mentioned this to , cyanide case hardener with [facility], about the patients concerns and they said they can figure out what time it is and talk to the patient about it. Assessment & Plan (12/05/2023 1:38 PM EDT): Awaiting ID to complete paperwork has [facility] appt 12/11 - needs rides, staff to assist Assessment & Plan (11/28/2023 10:27 AM EDT): Patient is experiencing homelessness. Applied for [address] [facility] [facility] apartment, same building as [facility] Getting financial docs together [facility] alie submitted awaiting response Expected discharge date: 12/10 Assessment & Plan (11/21/2023 5:46 PM EDT): Patient is experiencing homelessness. [facility] alie submitted, awaiting response Income too high for subsidized housing options Plans to get market rate apartment rental Back up plan to get extended stay hotel room Declines sober living, [place] [facility] options Expected discharge date: 12/10 Assessment & Plan (11/01/2023 11:15 AM EDT): Patient is experiencing homelessness. [facility] application submitted, [facility] respite if accepted Given severity of BH and substance use history, strongly encouraged residential programs, patient ambivalent Patient desires to find market rate apartment to live in with his father Assessment & Plan (10/03/2023 6:18 PM EDT): Patient is experiencing homelessness. Medically ready for discharge Current plan is discharge to [facility], as he will have resources such as continued case management there, when bed becomes available [facility] will help look into programs residential and IOP for further support as patient transitions to back into more independent living and while medically cleared, could benefit from higher level care Assessment & Plan (10/02/2023 11:24 AM EDT): The provider mentioned in the morning that they are working on getting the patient into the [facility] [place] [facility] when a bed is available. Reviewed if the patient was aware that this process is slowly starting, they confirmed they were aware of this. Had some concerns about having to leave right away, notified them that it was still in the process so it might happen soon but not necessarily right away. Staff will of course make sure the patient is medically cleared and stable enough to transition to the [place] [facility] bed before anything officially happens. Assessment & Plan (09/26/2023 11:15 AM EDT): Patient is experiencing homelessness. Declines [place] [facility] at this time due to worry about worsening substance use Declines sober housing Wants to look into apartment with father Consider SRO Assessment & Plan (09/06/2023 4:04 PM EDT): Patient is experiencing homelessness. Medically ready for discharge Does not qualify for subsidized housing due to high income Continue search for market rate apartment Alternative discharge plan: [facility] [place] [facility] or [facility] Assessment & Plan (08/16/2023 3:39 PM EDT): Patient is experiencing homelessness. Not medically ready for discharge Continues search for market rate apartment Assessment & Plan (07/19/2023 2:13 PM EDT): Patient is experiencing homelessness. Medically ready for discharge Continue searching for market rate apartments Assessment & Plan (07/11/2023 10:34 AM EDT): Patient is experiencing homelessness. Medically ready for discharge Encouraged patient to increase time spent on housing search now that he is medically stable and his father is out of the hospital CE done, waiting on referral Continue calls to [facility] for extended stay availability Assessment & Plan (07/04/2023 10:26 AM EDT): Patient is experiencing homelessness. Medically ready for discharge Continue search for market rate apartment rental CE done, waiting on referral Continue calls to [facility] for extended stay availability Assessment & Plan (06/06/2023 5:35 PM EDT): Medically ready for discharge Continue search for market rate apartment rental CE done, waiting on referral Continue calls to [facility] for extended stay availability Assessment & Plan (05/30/2023 6:49 PM EST): Medically ready for discharge Encouraged patient to conduct search on [employer] website CE done, waiting on referral Continue calling [facility] daily for extended stay availability Assessment & Plan (05/25/2023 10:05 AM EST): Patient is experiencing homelessness. Health impacts include: Worsened chronic disease mgmt Medically ready for discharge Pt income is high, not expected to qualify for subsidized housing Continue search for market rate apartment rentals Continue calling [facility] daily for extended stay availability Assessment & Plan (05/15/2023 10:38 AM EST): Patient is experiencing homelessness. Medically ready for discharge Continue search for market rate apartment Call [facility] daily for extended stay availability Assessment & Plan (05/03/2023 2:39 PM EST): Patient is experiencing homelessness. Medically ready for discharge High monthly income may make patient ineligible for subsidized housing Continue search for market rate apartment Call [facility] daily for extended stay opening Assessment & Plan (04/20/2023 11:29 AM EST): Patient is experiencing homelessness. Continues actively looking for apartments Assessment & Plan (04/04/2023 12:15 PM EST): Not medically ready for discharge Looking into market rate apartment rentals Social security income may be too high to qualify for coordinated entry Not open to sober house Assessment & Plan (10/30/2022 9:40 AM EDT): Detention bed secured at [facility] Pt will f/u with [facility] cyanide case hardener 10/30 Assessment & Plan (09/27/2022 1:42 PM EDT): Income too high to qualify for subsidized housing [facility] staff will check [facility] bed availability Encouraged pt to book hotel room in interim if preferred Assessment & Plan (09/20/2022 2:29 PM EDT): Continue housing search with Medically clear for discharge High income disqualifies pt for subsidized housing Assessment & Plan (09/13/2022 2:39 PM EDT): Medically stable for discharge Pt calling [facility] [employer] for long-term room availability Continue calling private room rentals Assessment & Plan (08/23/2022 3:17 PM EDT): Income too high for subsidized housing Pt calling [facility] daily for room availability o/w continue search for private room rental Assessment & Plan (08/21/2022 7:06 PM EDT): Continue daily call to [facility] for room availability Continue working with [facility] for private rentals Assessment & Plan (08/02/2022 2:06 PM EDT): Continue housing search with [facility] Encouraged regular calls to [facility] about room availability, can affordably rent by the month Assessment & Plan (07/26/2022 3:24 PM EDT): Continue to work with [facility] for apartment options Income too high for subsidized housing Assessment & Plan (03/29/2022 12:28 PM EST): Does not qualify for supported housing d/t high income Pt doing housing search with BOZENA Assessment & Plan (03/22/2022 11:43 AM EST): Patient is experiencing homelessness. Health impacts include: Worsened chronic disease mgmt Plan: Other needs to follow up with CM; will plan to discuss Assessment & Plan (03/16/2022 2:46 PM EST): Pt working with [facility] to find local apartment listings Assessment & Plan (03/15/2022 3:46 PM EST): Has all docs Pt working with BOZENA to find possible apartments Assessment & Plan (02/24/2022 11:22 AM EST): Continuing to work at [facility] Assessment & Plan (01/24/2022 12:32 PM EDT): Working with [facility] to find units, fill applications Has all documents Assessment & Plan (01/23/2022 12:18 PM EDT): Has cell phone now Working with [facility] on housing applications Assessment & Plan (01/21/2022 2:04 PM EDT): Patient getting new phone today Working with [facility] on finding places and submitting applications Assessment & Plan (11/21/2021 1:36 PM EDT): Apartment obtained! Move-in 11/24 Elissa to meet with pt to review meds before d/c Assessment & Plan (11/18/2021 11:56 AM EDT): Has all required documents Continue seeing/applying to apartments Assessment & Plan (11/03/2021 3:23 PM EDT): Documents set, pt actively seeking housing Assessment & Plan (10/31/2021 2:41 PM EDT): Active in apartment search, support as able Assessment & Plan (10/28/2021 10:56 AM EDT): Has all required documents Pt active in applying and seeing apartments Assessment & Plan (10/27/2021 1:52 PM EDT): All documents in order Pt actively working on applications Assessment & Plan (10/19/2021 12:40 PM EDT): Work with CM on applications Assessment & Plan (10/14/2021 12:06 PM EDT): Pt goal is independent living Prior issues with sober homes, not interested d/t too strict rules Assessment & Plan (10/06/2021 12:43 PM EDT): High risk of living on the streets Recently kicked out of shared apartment with father d/t drinking Denied re-rentry to [facility] yesterday after d/c from [facility] placement? Pending input from [facility] Assessment & Plan (08/08/2021 11:38 AM EDT): Apartment secured, in [place] Plan to d/c from [facility] tomorrow to move in Assessment & Plan (08/05/2021 12:08 PM EDT): Will be looking at an apartment today;looking forward to this Assessment & Plan (07/19/2021 10:29 AM EDT): Patient is experiencing homelessness. Continues to strike out with housing which is a source of stress. Continue to f/u with [facility], housing applications Assessment & Plan (07/13/2021 12:27 PM EDT): Patient is experiencing homelessness. Health impacts include: Worsened chronic disease mgmt . Living at [facility] currently and looking for apartment. Plan: Homeless Z59.0 added to the problem list and Other continue with assistance at [facility] to find new apartment. Assessment & Plan (07/04/2021 12:51 PM EDT): Continues to look for apartments has help from staff at [facility] with faxing, mailing, etc while searching for apartments which he is finding it helpful to have those supports. Assessment & Plan (06/27/2021 1:12 PM EDT): Stable Continues to search for an appt to move into once he leaves the respite Assessment & Plan (06/06/2021 9:09 AM EDT): Stable Working on a studio apt on [address] and has an interview with Abbi DIAZ this week Assessment & Plan (05/30/2021 7:19 PM EST): Close to being placed for housing. Opening back account today Actively Working with [employer] to gain housing Assessment & Plan (02/11/2021 10:38 AM EST): Planning to leave Sunday to stay with GF Thinks he has reached sobriety where he is stable enough to live with GF Assessment & Plan (02/02/2021 2:47 PM EST): Has been doubling up with father, unable to stay there. Has income and plans to look for housing options while at [facility]. Assessment & Plan (09/03/2019 11:46 AM EDT): He was homeless prior to his last hospitalization 08/27/19. He is presently living with his father. He has lived in shelters in the past. He is well known by Dejan Sandoval. 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 PT attending AA meetings and would like to connect to Les Conrad. Glss group. F/u with on [facility] and with [facility] for f/u. Assessment & Plan (11/11/2018 9:11 AM EDT): Being evicted. Moving belongings to storage tomorrow. Will work with [facility] on next steps for housing. Assessment & Plan (11/04/2018 11:08 AM EDT): Recently evicted from [facility]. Will discuss dispo plans further during rounds this week. Assessment & Plan (10/06/2018 9:01 PM EDT): Will lose apartment as of October 23, 2018. Plan to admit to detox then stabilization at [facility]. Discussed option sober home, will consider. Assessment & Plan (07/19/2018 1:31 PM EDT): Is housed on [facility] at [facility]. BOZENA Maloney, issues with letting someone stay there, needs to discuss further with Jaime Anderson and azeem to return to his unit. Assessment & Plan (01/27/2018 8:20 AM EST): Was not formally evicted from housing was living in apartment where his parents resides. Has income and looking for alternate places to live. His father is assisting him with this. Plans to return to work as well. [facility] length of stay up to 6 weeks to ensure fractures are healed and stable. Assessment & Plan (01/14/2018 1:22 PM EDT): Working with [facility] staff o securing SRO. Housing major motivation to maintain sobriety. Resolved Problems Problem Noted Date Diagnosed Date Resolved Date Housing insecurity 12/11/2023 Diarrhea 11/20/2023 12/20/2023 Assessment & Plan (11/27/2023 10:59 AM EDT): Also reviewed if the patient was having anymore issues with diarrhea since last week when they notified this RN. Patient took imodium last week when they stated they were having issues with diarrhea. Stated they were no longer having issues with diarrhea and the imodium they took last week helped elevate their symptoms. Reminded them that the medication is still in their drawer so in the future if they experience these symptoms again it is available for them to take. Assessment & Plan (11/20/2023 10:33 AM EDT): Patient mentioned they were having some diarrhea when they woke up this morning. They are unsure if it is from the dinner they ate last night or a possible stomach bug. Notified the provider of the patients symptoms and stated if the patient would like to they can take imodium to help with their diarrhea. Low TSH level 08/08/2023 09/18/2023 Overview (08/08/2023): [ ] recheck in August 2023 08/08/2023: noted while hospitalized. Team spoke to endocrine who recommended repeating after acute illness. Will plan to recheck in about a month Assessment & Plan (08/14/2023 11:23 AM EDT): Likely too early to repeat TSH, but since drawing other labs will add on and repeat later if needed Assessment & Plan (08/08/2023 4:19 PM EDT): Noted while hospitalized Inpatient Team spoke to endocrine who recommended repeating after acute illness Will plan to recheck in about a month COVID-19 04/15/2021 08/17/2022 Overview (04/15/2021): ARIADNA 1-15-22 [facility] health care 02/26/2018 Assessment & Plan (02/26/2018 11:17 AM EST): Chart reviewed and updated PE completed Medications reviewed, updated and appropriate refills given Preventative care reviewed Labs ordered. Follow-up to review labs or PRN. Thrombocythemia 02/26/2018 07/13/2021 Assessment & Plan (08/13/2018 2:10 PM EDT): Due for labs Ordered today Continue current treatment regimen Treatment will be determined based on lab results Follow-up as directed or PRN Assessment & Plan (02/26/2018 11:28 AM EST): Labs reviewed Will continue to monitor Will repeat at follow-up in 2 weeks; sooner PRN Neutropenia 02/26/2018 07/13/2021 Assessment & Plan (07/13/2021 6:24 PM EDT): A: No current neutropenia. P: Resolve. Assessment & Plan (08/13/2018 2:10 PM EDT): Due for labs Ordered today Continue current treatment regimen Treatment will be determined based on lab results Follow-up as directed or PRN Assessment & Plan (02/26/2018 11:28 AM EST): Labs reviewed Will continue to monitor Will repeat at follow-up in 2 weeks; sooner PRN History of hyperkalemia 01/18/2018 052 07/2022 Assessment & Plan (04/07/2022 10:58 AM EST): Lab Results Component Value Date K 5.0 03/31/2022 Potassium WNL though on higher end Not on kayexalate at this time Will continue to monitor Assessment & Plan (03/31/2022 11:50 AM EST): CMP pending Reminded of blood work. Assessment & Plan (03/24/2022 9:09 AM EST): CMP pending No longer on kayexalate Assessment & Plan (03/03/2022 2:34 PM EST): Okay to stop kayexalate ? Pt reports dialysis told him he can stop, no written confirmation Assessment & Plan (01/23/2022 12:19 PM EDT): On kayexalate Repeat BMP Assessment & Plan (01/21/2022 2:04 PM EDT): On kayexalate 3 times / week Repeat BMP 01/23 Assessment & Plan (11/18/2021 11:57 AM EDT): 11/17 K+ WNL Repeat BMP next week Continue kayexalate Assessment & Plan (10/24/2021 1:33 PM EDT): Repeat BMP today Continue kayexalate every other day Assessment & Plan (10/20/2021 12:33 PM EDT): EKG done today shows NSR, no peaked T waves seen Kayexalate restarted Repeat labs tomorrow Red flag sx discussed with pt, will monitor Assessment & Plan (10/17/2021 1:30 PM EDT): Repeat BMP Hold kayexalate unless hyperkalemic Assessment & Plan (10/14/2021 12:04 PM EDT): 10/10 K+ 4.1 Repeat BMP next week Hold kayexalate for now Assessment & Plan (08/05/2021 12:11 PM EDT): Kayexalate 30mg daily Continues with dose CMP pending for Sunday Assessment & Plan (08/03/2021 11:43 AM EDT): Plan for CMP next week Per hospital discharge note, kayexelate decreased to every other however amount increase; has been taking increased dose daily, will change medication order back to original dose and take daily; reviewed with nursery technician & Plan (07/15/2021 1:31 PM EDT): BMP today Continue kayexelate Assessment & Plan (07/13/2021 12:26 PM EDT): A: Regular labs and medication management at [facility]. Stable. P: Continue with current treatment and monitoring at [facility]. Assessment & Plan (07/08/2021 12:24 PM EDT): Lab Results Component Value Date NA 142 07/07/2021 K 4.6 07/07/2021 CHLORIDE 100 07/07/2021 C02 29 07/07/2021 CALCIUM 9.4 07/07/2021 BUN 80 (H) 07/07/2021 BUNCREAT 17 11/13/2018 EGFR 12 (L) 07/07/2021 EGFRAFAM 46 (L) 11/13/2018 CREATININE 5.14 (H) 07/07/2021 PROTEIN 7.9 02/07/2021 ALBUMIN 4.4 02/07/2021 GLOBULIN 3.5 02/07/2021 AGRATIO 1.2 2018 AST 28 02/07/2021 ALT 30 02/07/2021 ALKPHOS 115 (H) 02/07/2021 BILIRUBIN <0.2 02/07/2021 GLUCOSE 100 (H) 07/07/2021 Potassium remains WNL Continue with same dose of kayexalate Assessment & Plan (07/04/2021 12:52 PM EDT): Stable. Normal K at 4.6 Continue on 60 mg of kayexelate daily Lab Results Component Value Date NA 140 06/28/2021 K 4.6 06/28/2021 CHLORIDE 97 (L) 06/28/2021 C02 29 06/28/2021 ANIONGAP 14 06/28/2021 CALCIUM 9.8 06/28/2021 BUN 81 (H) 06/28/2021 BUNCREAT 17 11/13/2018 CREATININE 4.29 (H) 06/28/2021 GLUCOSE 81 06/28/2021 EGFR 15 (L) 06/28/2021 EGFRAFAM 46 (L) 11/13/2018 repeat BMp in one week. Assessment & Plan (06/27/2021 1:15 PM EDT): Elevated at 5.4 repeat BMP this week Cont lasix 40 and kayexelate 60 daily without change Assessment & Plan (06/22/2021 6:30 AM EDT): Asymptomatic Reports adherence to kayexalate For labs today which resulted after visit and showed k+ slightly elevated. P: continue kayexalate Follow with repeat labs in 1 week Assessment & Plan (05/30/2021 7:20 PM EST): Improving Contin. 30 mg kayexelate daily Recheck in one week Assessment & Plan (05/26/2021 11:58 AM EST): Labs rechecked this am, will adjust kayexylate based on result Assessment & Plan (05/25/2021 10:36 AM EST): Asymptomatic, on kayexelate. Recheck BMP tomorrow, continue on kayelxalate. Assessment & Plan (05/24/2021 10:09 PM EST): Asymptomatic Repeat BMP 3/ to recheck potassium Start kayelxalate daily Assessment & Plan (05/19/2021 4:09 PM EST): Given increase from 4.9-5.6 in 1 week without diet or medication etiology, favoring effect of decreased renal function As we are not open tomorrow due to weather, will start kayexylate today at low dose through weekend Will get labs checked Monday 05/22. Needs new referral to nephrology as prior would not take his insurance Assessment & Plan (02/26/2018 11:23 AM EST): Labs reviewed monitoring closely Asymptomatic Cut back on bananas Follow-up in 2 weeks for repeat labs; sooner PRN Kidney function abnormal 01/18/2018 Overview (02/26/2018): No HCTZ due to KFTs Assessment & Plan (11/26/2018 9:10 AM EDT): Chronically elevated Cr, agreeable to f/u with renal, no on ARB, only on betablocker. Await appt. Pt has not PT- benefit to be set up with the [facility] for outpatient appointments. Assessment & Plan (08/13/2018 2:09 PM EDT): Due for labs Ordered today Continue current treatment regimen Treatment will be determined based on lab results Follow-up as directed or PRN Assessment & Plan (07/29/2018 9:51 AM EDT): A) GFR = 45, moderate impairment. P) FYI to PCP, will use reduced dosing of acamprosate (333mg TID) per prescribing guidelines. Assessment & Plan (02/26/2018 11:21 AM EST): Monitoring On lisinopril ot protect kidneys Pt to follow-up in 2 weeks for repeat labs and htn check; sooner PRN Iron deficiency anemia 01/17/201807/13 Assessment & Plan (08/13/2018 2:10 PM EDT): Due for labs Ordered today Continue current treatment regimen Treatment will be determined based on lab results Follow-up as directed or PRN Assessment & Plan (02/26/2018 11:20 AM EST): Started on supplementation with colace Explained needs to take together to avoid constipation Pt voices understnading Will repeat labs in 3 months; follow-up sooner PRN Assessment & Plan (01/17/2018 4:28 PM EDT): A: Asymptomatic. P: Start iron supplement. Standard med precautions reviewed. Instructed to notify staff if in need of stool softener or laxative. Stressed importance of completing FIT test. Reviewed instructions with patient in depth. Smoker 2018 05/25/2021 Assessment & Plan (02/11/2021 10:40 AM EST): Counseled on smoking cessation Not interested in NRT at this time Assessment & Plan (02/02/2021 2:37 PM EST): Smoking 1/2 Ppd. Counseled on importance of smoking cessation. Not interested in NRT at this time. Assessment & Plan (11/11/2018 9:18 AM EDT): Smokes 6/day. Counseled on importance of smoking cessation. Not interested in NRT at this time. Assessment & Plan (11/04/2018 11:07 AM EDT): Had been smoking 1 ppd, has cut down to 4/day at [facility]. Counseled on importance of smoking cessation. Not interested in NRT at this time. Assessment & Plan (02/26/2018 11:27 AM EST): Discussed today Pt will follow-up when ready to quit. Options discussed Alcohol withdrawal seizure w ithout complication 2018 08/17/2022 Assessment & Plan (07/13/2021 10:51 AM EDT): A: Stable. Sober x 73 days. Taking vivitrol injections, which are helping. P: Continue with current treatment plan. Assessment & Plan (11/11/2018 9:07 AM EDT): No cravings on naltrexone. Attending AA meetings. Well connected with Assessment & Plan (07/19/2018 1:30 PM EDT): Resolved, cleared by ED. Hypomagnesemia 2018 08/17/2022 Assessment & Plan (07/13/2021 3:52 PM EDT): A: Stable with current treatment. Managed and monitored at [facility]. P: Continue with current treatment plan. Assessment & Plan (05/09/2021 4:30 PM EST): Stable at 1.9 Assessment & Plan (02/02/2021 2:54 PM EST): Low in hospital. On supplementation, recheck in 1 week. Labs ordered. Assessment & Plan (02/26/2018 11:20 AM EST): Monitoring Follow-up in 3 months; sooner PRN Assessment & Plan (2018 11:28 AM EDT): History of Labs ordered Follow-up in 2-4 weeks for PE; sooner PRN Right elbow pain 2018 02/26/2018 Overview (2018): 01/10: Fracture-followed by ortho Assessment & Plan (02/04/2018 1:54 PM EST): A: FROM, improving P: Follow up with ortho later this week Assessment & Plan (01/07/2018 8:39 PM EDT): A: Continued pain and decreased ROM s/p ORIF 2/ fall while intoxicated P: Follow up with ortho this week, continue prn apap. Assessment & Plan (2018 11:25 AM EDT): Healing Follow-up next week with specialist as scheduled Sooner PRN Encounters Date Type Department Care Team Description 01/02/2025 Interim Notes [facility] [address] [facility] [place] [phone] Debra Miranda LMHC 12/08/2024 10:30 AM EDT / Visits [facility] [address] [facility] 269 [facility] [place] [phone] Debra Sullivan APRN 12/06/2024 Interim Notes [facility] [address] [facility] [place] [phone] Latanya Dennis RN 12/01/2024 9:30 AM EDT Facility Care [facility] [address] [facility] [place] [phone] Celine Valencia, AVELINO 11/29/2024 8:15 AM EDT Facility Care [facility] [address] [facility] [address] SEC[address]LO[facility] [place], [place] [address] Navya Soto, RN 11/28/2024 10:30 AM EDT Facility Care [facility] [address] [facility] SEC[facility] [place], [place] [address] Zara Lozano NP 11/28/2024 8:30 AM EDT / Visits [facility] [address] [facility] 269 [facility] [place], [place] [address] Debra Sullivan APRN 11/27/2024 10:30 AM EDT Facility Care [facility] [address] [facility] SEC[facility] [place], [place] [address] Celine Valencia, AVELINO 11/26/2024 10:30 AM EDT Facility Care [facility] [address] [facility] [address] SECOND FLO[facility] [place], [place] [address] Stone Powell PA 11/26/2024 Patient Outreach [facility] [address] [facility] 280 [facility] [place], [place] [address] Laura Abreu 11/25/2024 10:30 AM EDT Facility Care [facility] [address] [facility] SEC[facility] [place], [place] [address] Latanya Dennis, RN 11/22/2024 8:15 AM EDT Facility Care [facility] [address] [facility] [address] SECOND FLO[facility] [place], [place] [address] Navya Soto, RN 11/21/2024 10:30 AM EDT Facility Care [facility] [address] SECOND FLOOR [place], [place] [address] Alma Carney, RN 11/20/2024 10:30 AM EDT Facility Care [facility] [address] [facility] [address] SECOND FLO[facility] [place], [place] [address] Alma Carney, RN 11/19/2024 10:30 AM EDT Facility Care [facility] [address] [facility] [place], [place] [address] Stone Powell, PRESTON 11/19/2024 Patient Outreach [facility] 280 [facility] 280 [facility] [place], [place] [address] Laura Abreu 11/18/2024 10:30 AM EDT Facility Care [facility] [address] [facility] [address] SECOND [address]LO[facility] [place], [place] [address] Latanya Dennis, RN 11/17/2024 12:00 PM EDT / Visits [facility] [address] [facility] [address] [place], [place] [address] Debra Sullivan APRN 11/17/2024 10:30 AM EDT Facility Care [facility] [address] [facility] [place], [place] [address] Stone Powell PA 11/15/2024 8:30 AM EDT Facility Care [facility] [address] [facility] [address] SECOND FLO[facility] [place], [place] [address] Maria E Tang, AVELINO 11/14/2024 10:30 AM EDT Facility Care [facility] [address] [facility] [address] SECOND FLOOR [place], [place] [address] Latanya Dennis, RN 11/13/2024 10:30 AM EDT Facility Care [facility] [address] [facility] [address] SECOND FLOOR [place], [place] [address] Alma Carney, RN 11/12/2024 10:00 AM EDT Facility Care [facility] [address] [facility] [address] SECOND FLOOR [place] [address] Latanya Dennis, RN 11/11/2024 9:00 AM EDT Facility Care [facility] [address] [facility] [address] SECOND FLO[facility] [place] [address] Celine Valencia, AVELINO 11/10/2024 12:00 PM EDT / Visits [facility] [address] [facility]. [place] [phone] Debra Sullivan APRN 11/10/2024 9:45 AM EDT Facility Care [facility] [address] [facility] [place] [address] Dejan Sandoval NP 11/09/2024 8:00 AM EDT Facility Care [facility] [address] [facility] [place], [place] [address] Navya Soto RN 11/08/2024 8:15 AM EDT Facility Care [facility] [address] [facility] [place] [address] Navya Soto RN 11/07/2024 10:30 AM EDT Facility Care [facility] [address] [facility] [place] [address] Alma Carney, AVELINO 11/06/2024 10:30 AM EDT Facility Care [facility] [address] [facility] [place] [address] Celine Valencia, AVELINO 11/05/2024 10:30 AM EDT Facility Care [facility] [address] [facility] [place], [place] [address] Stone Powell PA 11/04/2024 10:30 AM EDT Facility Care [facility] [address] [facility] [place], [place] [address] Celine Valencia, AVELINO from Last 3 Months Immunizations Immunization Administration Dates Next Due DTAP (Infanrix) 09/19/2016 Flu, Preservative Free 12/06/2022,01/07/2021,02/2016 Hep A, adult 07/11/2021,12/02/2018 Hep B, Adult/Adol ([id number]/RECOMBIVAX-ADULT) 08/07/2022,02/27/2022 Hep B,adult,adjuvanted (HEPLISAV) 05/01/2023 INFLUENZA, SEASONAL, INJECTABLE 01/10/2018,02/02 DONNIE COVID-19 VACCINE 02/26/2021,08/20/2020,0 08/19/2020 MODERNA COVID-19 VACCINE BIV ALENT, BLUE CAP, 6M+ 12/12/2021 PNEUMOCOCCAL POLYSACCHARIDE PPV23 (Pneumovax 23) 12/14/2017,11/12/2015,10/26/2015,04/17 TDAP 09/20/2016,10/26/2015 Family History Medical History Relation Name Comments Depression Father 87 Diabetes Mother 83 Thyroid Disease Mother thinks cance r- removed Relation Name Status Comments Father Alive Mother Alive Sister Alive Social History Tobacco Use Types Packs/Day Years Used Date Smoking Tobacco: Every Day Cigarettes 1 20 Smokeless Tobacco: Never Tobacco Cessation:Ready to Q uit: Not Asked; Counseling Given: Not Answered Comments:1 PPD x 16 = 16 PYH, cut back to 0.5 ppd with [facility] [...] 0 11/12/2018 Food Insecurity Answer Date Recorded Within the past 12 months, t he food you bought just didn't last and you didn't have enough money to get more. 2 06/04/19 25 Transportation Needs Answer Date Record ed In the past 12 months, has l ack of transportation kept you from medical appointments, meetings, work or from getting things needed for daily living? (Check all that apply) 1 2024 Housing Stability Answer Date Recorded What is your housing situation today? 2 06/03/2024 Safety and Environment Answer Date Nitin rded Safety 0 11/12/2018 Utilities Answer Date Recorded In the past 12 months has th e electric, gas, oil, or water company threatened to shut off services in your home? 2 06/03/2024 Employment Answer Date Recorded Stress 2 07/04/2023 Sex and Gender Information Value Date Recorded Sex Assigned at Not on file Legal Sex Male 5:37 PM PDT Gender Identity Not on file Sexual Orientation Not on file Last Filed Vital Signs Vital Sign Reading Time Taken Comments Blood Pressure 129/82 11/29/2024 7:14 AM EDT Pulse 86 11/29/2024 7:14 AM EDT Temperature 36.9 C (98.5 F) 11/29/2024 7:14 AM EDT Respiratory Rate 19 11/26/2024 10:23 AM EDT Oxygen Saturation 96% 11/29/2024 7:14 AM EDT Inhaled Oxygen Concentration - - Weight 81 kg (178 lb 9.6 oz) 11/28/2024 8:57 AM EDT Height 170.2 cm (5' 7 ) 01/16/2023 5:24 PM EDT Body Mass Index 27.97 01/16/2023 5:24 PM EDT Plan of Treatment Health Maintenance Due Date Last Done Comments Medicare Annual Wellness Visit 01/04/1980 CT Colonography 2007 Fecal DNA 2007 Flexible Sigmoidoscopy 2007 Imm-RSV (adult) (1 - Risk 50 -74 years 1-dose series) 01/04/2012 Imm-Zoster, Recombinant (1 of 2) 01/04/2012 FIT/gFOBT 03/30/2024 03/30/2023, 10/24, 06/24/2021, Additional history exists LTBI Screening (#1) 08/14/2024 08/15/2023, 03/31/2022, 02/07/2021, Additional history exists Depression Monitoring 09/06/2024 06/06/2024 , 03/12/2024, 07/11/2021, Additional history exists [id number] ( season) 2024 12/12/2021, 02/26/2021, 08/20/2020, Additional history exists Imm-Influenza (#1) 2024 2024, 0 12/06/2022, 01/07/2021, Additional history exists Lipid Screening 04/18/2025 04/18/2024, 08/24, 09/05/2023, Additional history exists Tobacco Cessation Counseling (#1) 06/06/2025 Anxiety Screening 07/23/2025 07/23/2024 Lung Cancer Screening 01/27/2026 01/27/2025 , 05/22/2024, 05/20/2024 Diabetes Screening 02/03/2026 02/03/2025, 1 04/04/2024, 02/01/2025, Additional history exists Imm-DTaP/Tdap/Td (4 - Td or Tdap) 09/20/2026 09/20/2016, 09/19/2016, 10/26/2015 Colonoscopy 01/13/2029 03/08/2016 Colorectal Cancer Screening 01/13/2029 Syphilis Screening Discontinued 02/07/2021, 1 04/09/2020, 09/01/2019, Additional history exists Imm-Hepatitis A Completed 07/11/2021, 12/02/2018 Hepatitis C Screening Completed 02/09/2022 , 09/01/2019, 2018, Additional history exists Imm-Hepatitis B Completed 06/26/2023, 07/2023, 05/01/2023, Additional history exists HIV Screening Completed 08/15/2023, 01/24, 02/07/2021, Additional history exists Alcohol and Drug Screen Completed 06/07/19, 06/06/2024, 04/02/2023, Additional history exists Imm-Pneumococcal 50+ Completed 06/12/2024, 12/14/2017, 11/12/2015, Additional history exists Goals Goal Patient Goal Type Associated Problems Recent Progress Patient-Stated? Author get cert General Severe episode of recurrent major depressive disorder, without psychotic features; Anxiety On track( 025 10:17 AM PDT) Yes Debra Miranda LMHC Note: To be achieved by 07/24/24, get apt General Severe episode of recurrent major depressive disorder, without psychotic features; Anxiety Not on track( 025 10:17 AM PDT) Yes Debra Miranda LMHC Note: To be achieved by 08/24/24, try to go to soc sec to see if there was an acct with money in it General Severe episode of recurrent major depressive disorder, without psychotic features; Anxiety Not on track( 025 10:18 AM PDT) Yes Debra Miranda, [facility] Note: To be achieved by 08/24/24, Help patient manage hypertension Care Plan Patient has a diagnosis of hypertension No Zara Lozano NP Procedures Procedure Name Priority Date/Time Associated Diagnosis Comments OTHER ORDERS SCANNED DOCUMENT 01/29/2025 3:00 AM EST OTHER ORDERS SCANNED DOCUMENT 01/21/2025 3:00 AM EDT HEALTH HISTORY SCANNED DOCUMENT 12/29/2024 3:00 AM EDT OTHER ORDERS SCANNED DOCUMENT 12/29/2024 3:00 AM EDT OTHER ORDERS SCANNED DOCUMENT 12/29/2024 3:00 AM EDT OTHER ORDERS SCANNED DOCUMENT 12/29/2024 3:00 AM EDT HEALTH HISTORY SCANNED DOCUMENT 12/17/2024 3:00 AM EDT REFERRAL SCANNED DOCUMENT 12/04/2024 3:00 AM EDT MEDICATIONS SCANNED DOCUMENT 12/02/2024 3:00 AM EDT OTHER ORDERS SCANNED DOCUMENT 11/11/2024 3:00 AM EDT REFERRAL TO ENDOCRINOLOGY Routine 11/07/20[address] LOW DOSE CT LUNG SCREENING Urgent 05/22/2024 3:00 AM EST Screening for lung cancer HEMOGLOBIN GLYCOSYLATED A1C Routine 09/05/2023 12:00 PM EDT Severe episode of recurrent major depressive disorder, without psychotic features (HCC-CMS) LIPID PANEL Routine 09/05/2023 12:00 PM EDT Severe episode of recurrent major depressive disorder, without psychotic features (HCC-CMS) HIV 1/2 AG & AB W/RFLX (4TH GEN) Routine 08/15/2023 12:29 PM EDT Pneumonia of both lungs due to infectious organism, unspecified part of lung QUANTIFERON-TB GOLD PLUS Routine 08/15/2023 12:27 PM EDT Pneumonia of both lungs due to infectious organism, unspecified part of lung FECAL GLOBIN BY IMMUNOCHEMISTRY (FIT) Routine 06/24/2021 3:00 PM EDT Screen for colon cancer SYPHILIS TEST NON-TREPONEMAL ANTIBODY QUAL Routine 02/07/2021 1:20 PM EST Screening examination for STD (sexually transmitted disease) HEP C RNA QT, RT PCR W/RFLX RUDDY LIPA Routine 2018 11:49 AM EDT Communicable disease contact from Last 3 Months or Most Recently Relevant to Health Maintenance Results * OTHER ORDERS SCANNED DOCUMENT (01/29/2025 3:00 AM EST) Only the most recent of6 resultswithin the time period is included. 01/29/2025 3:00 AM EST Keyla Solorio NP SCAN OTHER ORDERS Final Resul t * HEALTH HISTORY SCANNED DOCUMENT (12/29/2024 3:00 AM EDT) Only the most recent of2 resultswithin the time period is included. 12/29/2024 3:00 AM EDT us Non[facility] Pcp SCAN OTHER ORDERS Final Result * REFERRAL SCANNED DOCUMENT (12/04/2024 3:00 AM EDT) 12/04/2024 3:00 AM EDT us Non[facility] Pcp SCAN REFERRAL Final Result * MEDICATIONS SCANNED DOCUMENT (12/02/2024 3:00 AM EDT) 12/02/2024 3:00 AM EDT us Jenna Trinidad SCAN MEDS OTHER ORDERS Final Res ult * REFERRAL Endocrinology (11/07/2024) Impressions Senait Malone - 11/07/2024 Notes from this appt were faxed to [facility], shared with medical team, and sent to HIM to be scanned on chart. us Ketan Mosley MD REFERRAL Final Result * CT Low Dose for Lung Cancer Screening (05/22/2024 3:00 AM EST) 05/22/2024 3:00 AM EST Stone [place] IMG CT Final Result * HEMOGLOBIN GLYCOSYLATED A1C (09/05/2023 12:00 PM EDT) HEMOGLOBIN A1C 4.8 4.2 - 5.6 % [facility] Comment: Hemoglobin A1c values between 5.7 and 6.4% indicate an increased risk for diabetes. Values of 6.5% or greater are diagnostic of diabetes. CALC MEAN BLD GLUC 91 mg/dL [facility] Comment:Processed and/or per formed at [facility],[address] [place] [address] Blood Blood / Unknown 09/05/2023 1 2:00 PM EDT Ketan Verde NP LAB - BLOOD DRAW Final Result [address] [address], [place] [phone] * LIPID PANEL (09/05/2023 12:00 PM EDT) HDL 43 >39 mg/dL [facility] CHOLESTEROL 160 0 - 200 mg/dL [facility] TRIGLYCERIDE 123 0 - 150 mg/dL [facility] LDL 92 <130 mg/dL [facility] Comment: REFERENCE RANGE: Adult >= 18 years: - Desirable: <100 - Above desirable: 100-129 - Borderline high: 130-159 - High: 160-189 - Very High: >=190 Pediatric 2-17 years: - Acceptable: <110 - Borderline high: 110-129 - High: >=130 Reference ranges have not been established for patients that are less than 24 months of age. CARDIAC RISK RATIO 3.7 <5 [facility] NON HDL CHOL 117 mg/dL [facility] Comment: Reference Range: The non-HDL Cholesterol value should not exceed the desired LDL-C by more than 30 mg/dl. Processed and/or performed at [facility],[address] [place] [address] Blood Blood / Unknown 09/05/2023 1 2:00 PM EDT Ketan Verde NP LAB - BLOOD DRAW Final Result Performing Organization Address City/[facility]/ZIP Co de Phone Number [address] [address], * *HIV with REFLEX (08/15/2023 12:29 PM EDT) [facility] HIV AG/AB, 4TH GEN NON-REAC TIVE NON-REAC TIVE [facility] Comment: HIV-1 antigen and HIV-1/HIV-2 antibodies were not detected. There is no laboratory evidence of HIV infection. PLEASE NOTE: This information has been disclosed to you from records whose confidentiality may be protected by state law. If your state requires such protection, then the state law prohibits you from making any further disclosure of the information without the specific written consent of the person to whom it pertains, or as otherwise permitted by law. A general authorization for the release of medical or other information is NOT sufficient for this purpose. For additional information please refer to http://education.GetTaxi/faq/NPA923 (This link is being provided for informational/ educational purposes only.) The performance of this assay has not been clinically validated in patients less than 2 years old. Blood Blood / Unknown 08/15/2023 1 2:29 PM EDT 08/15/2023 12:30 PM EDT Ivette Esparza MD LAB - BLOOD DRAW Final Result Performing Organization Address City/[facility]/ZIP Co de Phone Number [facility] [address] [address], [facility] [address] [address] * *TB QUANTIFERON-TB GOLD PLUS ([employer] [id number]) (08/15/2023 12:27 PM EDT) QUANTIFERON NEGATIVE NEGATIVE [facility] Comment: Negative test result. M. tuberculosis complex infection unlikely. NIL 0.03 IU/mL [facility] MITOGEN-NIL >10.00 IU/mL [facility] TB1-NIL 0.00 IU/mL [facility] TB2-NIL 0.00 IU/mL [facility] Comment: The Nil tube value reflects the background interferon gamma immune response of the patient's blood sample. This value has been subtracted from the patient's displayed TB and Mitogen results. Lower than expected results with the Mitogen tube prevent false-negative Quantiferon readings by detecting a patient with a potential immune suppressive condition and/or suboptimal pre-analytical specimen handling. The TB1 Antigen tube is coated with the M. tuberculosis-specific antigens designed to elicit responses from TB antigen primed CD4+ helper T-lymphocytes. The TB2 Antigen tube is coated with the M. tuberculosis-specific antigens designed to elicit responses from TB antigen primed CD4+ helper and CD8+ cytotoxic T-lymphocytes. For additional information, please refer to https://education.GetTaxi/faq/FQJ901 (This link is being provided for informational/ educational purposes only.) Blood Blood / Unknown 08/15/2023 1 2:27 PM EDT 08/15/2023 12:27 PM EDT Ivette Esparza MD LAB - BLOOD DRAW Final Result [facility] [address] [address], [facility] [address] [address] * FIT ([facility]) (06/24/2021 3:00 PM EDT) Pathologist [facility] IFOBT Negative Negative [facility] Comment:Processed and/or per formed at [address] [place] [address] Stool Stool specimen / Unknown 06/24/2021 3:00 PM EDT Keyla Solorio NP LAB BODY FLUIDS AND STOOLS AM BULATORY Final Result Performing Organization Address City/[facility]/ZIP Co de Phone Number [address] [address], [place] [phone] * SYPHILIS AB, IGG w/RFLX TPPA SCREENING (02/07/2021 1:20 PM EST) SYPHILIS TOTAL AB Negative Negative [facility] Comment: Cannot exclude incubating or early primary syphilis. Submit a second sample in 2-4 weeks if clinically indicated. Processed and/or performed at [address] [place] [address] Blood Blood / Unknown 02/07/2021 1 :20 PM EST Live Casiano NP LAB - BLOOD DRAW Final Resul t Performing Organization Address [facility] Co de Phone Number [address] [address], [place] [phone] * HEP C RNA QT, RT PCR W/RFLX RUDDY LIPA ([facility] [id number]) (2018 11:49 AM EDT) Pathologist [facility] HCV RNA, QUANTITATIVE REAL TIME PCR <15 NOT DETECTED NOT DETECTED [facility] [place] [facility] HCV RNA, QUANTITATIVE REAL TIME PCR <1.18 NOT DETECTED NOT DETECTED [facility] [place] COMMENT [facility] [place] [facility] Blood specimen (specimen) Blood / Unknown 2018 11:49 AM EDT 2018 11:56 PM EDT Narrative [facility] - 01/04/2018 3:43 PM EDT This test was performed using Real-Time Polymerase Chain Reaction. Reportable Range: 15 IU/mL to 100,000,000 IU/mL (1.18 Log IU/mL to 8.00 Log IU/mL). The analytical performance characteristics of this assay have been determined by [employer]. The modifications have not been cleared or approved by the FDA. This assay has been validated pursuant to the CLIA Regulations and is used for clinical purposes. For more information on this test, go to: http://education.Figma.[employer]/faq/ZHT66k1 (This link is being provided for informational/ Educational purposes only.) Performing Organization Information: [927] : [facility] [facility], [address], [place] [address] Director: FROY DOYLE MD us Allen Acosta [facility] - BLOOD DRAW Final Resu lt [employer] [facility] [employer] [address] [address], from Last 3 Months or Most Recently Relevant to Health Maintenance Additional Health Concerns Active Problems Noted Date Diagnosed Date Patient has a diagnosis of hypertension 02/12/20 21 [place] Advance Directives Documents on File Type Date Recorded Patient Animal Daycare Provider Expl anation Polst Form 05/23/2024 12:00 AM (MOLST) F ORM Care Teams Dentofacial Orthopedics Dentist Relationship Specialty [place] [address] PCP - General 12/22/24 Les Mays [facility] Addiction Health Dentofacial Orthopedics Dentist 02/25/18 [facility] 03/01/22
--- OUTSIDE RECORDS SUMMARY | 2025-02-04 16:35 | XMS_ITS | Encounter Summary ---
Author Organization [facility] Address [address] [place] [address] Care Team Providers Care Guitar Maker Hand Name Role Phone Megan Goodwin MD Unavailable [phone] System, Provider Not In Primary Care Provider Un available Mal Mcclelland MD Primary Care Provider + Vannessa Jimenez MD Unavailable [phone] None, Pcp Primary Care Provider Unavailabl e Unknown, Provider Primary Care Provider [facility] Primary Care Provi maria ines Ketan Verde NP Primary Care Provider [phone] System, Provider Not In Primary Care Provider Un available Unknown, Provider Primary Care Provider [facility] Akin Christianson ASSET PROTECTION GREETER Primary Care Provider [phone] Encounter Details Date Type Department Care Team (Late st Contact Info) Description 10/17/2022 Documentation [facility] [address] [place] [address] Tisha Simmons RN Social History Tobacco Use Types Packs/Day [...] documented as of this encounter Care Teams Guitar Maker Hand Relationship Specialty Start Date End Date System, Provider Not In [address] [place] [address] PCP - General 06/17/22 01/01/23 Mal Mcclelland MD [address] [place] [address] PCP - General Internal Medicine 01/02/23 04/23/23 Vannessa Jimenez MD [address] [place] [address] PCP - Resident Internal Medicine 01/02/23 04/23/23 None, Pcp, [address] [place] [address] PCP - General 04/24/23 10/19/23 Unknown, Provider, [address] [place] [address] PCP - General 10/20/23 02/19/[address], [address] PCP - General 02/20/24 03/04/24 Ketan Verde ASSET PROTECTION GREETER [address] [place] [address] PCP - General Psychiatry 03/05/24 07/29/24 System, Provider Not In PCP - General 07/30/24 01/30/25 Unknown, Provider, [address] [place] [address] PCP - General 01/31/25 02/02/25 Akin Christianson NP [address] [place] [address] PCP - General Nurse Practitioner 02/03/25 Megan Goodwin MD [facility] [place] [address] 04/08/10 01/01/23 documented as of this encounter
--- OUTSIDE RECORDS SUMMARY | 2025-02-04 16:35 | XMS_ITS | Encounter Summary ---
Author Organization Iris Americo [facility] Address [address] [place] [address] Care Team Providers Care Steam Hand Name Role Phone Megan Goodwin MD Primary Care Provider [phone] Megan Goodwin MD Unavailable [phone] None, Pcp Primary Care Provider Unavailabl e System, Provider Not In Primary Care Provider Un available Mal Mcclelland MD Primary Care Provider + Vannessa Jimenez MD Unavailable [phone] None, Pcp Primary Care Provider Unavailabl e Unknown, Provider Primary [facility] Provi maria ines Ketan Verde CERTIFIED RETINAL ANGIOGRAPHER Primary Care Provider [phone] System, Provider Not In Primary Care Provider Un available Unknown, Provider Primary Care Provider Unava ilable Akin Christianson CERTIFIED RETINAL ANGIOGRAPHER Primary Care Provider [phone] Encounter Details Date Type Department Care Team (Late st Contact Info) Description 05/01/2012 Clinical Conversion Encounter General Internal Medicine- [facility] General Internal Medicine [address] [place] [address] Denny Anderson MD [address] [place] [address] Social History Tobacco Use Types Packs/Day Years Used Date Smoking Tobacco: Never Assessed Sex and Gender Information Value Date Recorded Sex Assigned at Male 05/20/2019 2:37 PM EST Legal Sex Male 11:50 AM EST Gender Identity Male 05/20/2019 2:37 PM EST Sexual Orientation Not on file documented as of this encounter Discharge Summaries * Denny Anderson MD - 05/11/2014 8:27 AM EST [id number],JOHN [facility] DISCHARGE SUMMARY Name: TASH CHRISTIANSON #: [id number] : 1960 Admit Date: 05/01/2012 Discharge Date: 05/03/2012 Visit ID: [id number] ATTENDING PHYSICIAN: Denny Anderson MD. DISCHARGE DIAGNOSES: 1. Alcohol intoxication. 2. Alcohol withdrawal. DISCHARGE MEDICATIONS: 1. Folic acid 1 mg p.o. daily. 2. Magnesium oxide 400 mg p.o. twice a day. 3. Metoprolol succinate ER 50 mg p.o. daily. 4. Mirtazapine 15 mg p.o. at bedtime. 5. Thiamine 100 mg p.o. daily. PAST MEDICAL HISTORY: 1. Alcohol abuse. 2. Alcohol withdrawal seizures. 3. Hypertension. 4. Depression. SOCIAL HISTORY: The patient currently lives with his friend/girlfriend Estela. 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 He currently smokes about 1 pack of cigarettes per day. He has been smoking for the last 12 years. The patient denies any recreational drugs. ALLERGIES: No known drug allergies. PHYSICAL EXAMINATION: On date of discharge, the patient is comfortable in bed, no visible distress. He states he feels back to normal. Vital signs: Blood pressure 135/90, heart rate 85, respiratory rate 20, temperature 98.4, O2 saturation 98% on room air. HEENT: Normocephalic. Pupils equal and reactive to light. Moist mucosa, pink. Jugular venous pressure is normal. Heart: S1 and S2 normal, regular rhythm. Lungs are clear to auscultation. Abdomen is soft, nontender, no palpable visceromegalies, bowel sounds are present. Extremities: No peripheral edema or cyanosis. Skin is moist and warm. Central nervous system: The patient is awake, alert, oriented x3, able to ambulate on his own without difficulties. LABORATORY DATA: On 05/02/2012: The patient had a WBC of 5.7, hemoglobin 13.1, hematocrit 39.2, platelets 138,000. Chemistries on date of discharge: The patient had a sodium of 135, potassium 3.6, chloride 99, bicarb 29, BUN 14, creatinine 0.9, glucose 95, calcium 8.7. Magnesium was 1.8 and phosphorus 3.7. Plasma tox screen on admission showed alcohol level of 511. Repeat alcohol level about almost 12 hours later showed an alcohol level of 377. Hemoglobin A1c during hospitalization was 5.3%. Chest x-ray showed no acute cardiopulmonary process. HOSPITAL COURSE: Mr. Christianson is a 52-year-old male with past medical history as described earlier, who came to the hospital with alcohol intoxication and requesting alcohol detoxification. The patient was admitted to the hospital for further management. In summary: 1. Alcohol intoxication. The patient has been struggling with alcohol for at least the last 12 years. He has greater than 50 admissions to the hospital for detoxification. At this time, the patient was started on CIWA protocol to manage his alcohol withdrawal. By the time of discharge, the patient is feeling back to normal. 2. Alcohol withdrawal. The patient had symptoms of withdrawal with some tremors, diaphoresis and elevated blood pressure and some tachycardia. As mentioned earlier, the patient was managed with CIWA protocol, which controlled very well his symptoms. The patient was tapered from benzodiazepines and by the time of discharge, the patient was off lorazepam. The patient did not have any further symptoms of withdrawal and he states that his withdrawal was over. The patient received counseling regarding his alcohol withdrawal; however, he was not interested in any inpatient detoxification. The patient stated that he was going to call the [facility], who he knows has a good program. He also states that he is going back to his AA meeting, which he was going in the past. He stopped going after his counselor at age of 80 and he never replaced him. We offered more information; however, the patient states that he already knows and he has a plan to go to an outpatient program. 3. Hypertension. The patient was continued on metoprolol 50 mg XL p.o. daily with good control of the patient's blood pressure. 4. Depression. The patient was continued on mirtazapine 15 mg p.o. daily. CONDITION AT DISCHARGE: The patient's vital signs are within normal limits and no signs of alcohol withdrawal. DISCHARGE STATUS: The patient is going home in company of his girlfriend. FOLLOWUP APPOINTMENTS: The patient will call [facility] for the detoxification and he will call also his primary care physician, Dr. Megan Goodwin, located at [address] [place] [address], phone number is [phone]. Denny Anderson MD AJS:nts J: [id number] / [id number] CC: THIS DOCUMENT WAS ELECTRONICALLY AUTHENTICATED BY Denny Anderson MD ON 05/05/2012 16:48:10 documented in this encounter Plan of Treatment Not on file documented as of this encounter Procedures Procedure Name Priority Date/Time Associated Diagnosis Comments CBC STAT 05/01/2012 8:15 PM EST PHOSPHORUS Routine 05/01/2012 8:15 PM EST MAGNESIUM STAT 05/01/2012 8:15 PM EST BASIC METABOLIC PANEL STAT 05/01/2012 8:15 PM EST PHOSPHORUS STAT 05/01/2012 12:00 AM EST MAGNESIUM STAT 05/01/2012 12:00 AM EST ETHANOL, BLOOD STAT 05/01/2012 12:00 AM EST documented in this encounter Results * Phosphorus (05/01/2012 8:15 PM EST) Phosphorus 2.7 2.4 - 4.4 MG/DL SUNQUEST Comment:[facility]; [place] 05/01/2012 8:15 PM EST 05/01/2012 8:27 PM EST us Jacinto Navarro MD LAB BLOOD ORDERABLES Final Res ult SUNQUEST * (ABNORMAL) Magnesium (05/01/2012 8:15 PM EST) Magnesium, Blood 1.0(L) 1.6 - 2.6 MG/DL SUNQUEST Comment:[facility]; [place] 05/01/2012 8:15 PM EST 05/01/2012 8:27 PM EST us Jacinto Navarro MD LAB BLOOD ORDERABLES Final Res ult Performing Organization Address [facility]/ZIP Co de Phone Number SUNQUEST * (ABNORMAL) Basic Metabolic Panel (05/01/2012 8:15 PM EST) Sodium 136 135 - 146 MMOL/L SUNQUEST Comment:[facility]; [place] Potassium, Plasma 3.8 3.4 - 5.2 MMOL/L SUNQUEST Comment:[facility]; [place] Chloride 98 98 - 110 MMOL/L SUNQUEST Comment:[facility]; [place] Total CO2 27 24 - 32 MMOL/L SUNQUEST Comment:[facility]; [place] Anion Gap 11 2 - 15 MMOL/L SUNQUEST Comment:[facility]; [place] BUN 7 7 - 22 MG/DL SUNQUEST Comment:[facility]; [place] Creatinine 0.8 0.6 - 1.3 MG/DL SUNQUEST Comment:[facility]; [place] Glucose, Blood 80 70 - 100 MG/DL SUNQUEST Comment:[facility]; [place] Calcium 8.3(L) 8.4 - 10.4 MG/DL SUNQUEST Comment:[facility]; [place] GFR -Amer >60 >60 ML/MIN SUNQUEST Comment:[facility]; [place] GFR Non -Amer >60 >60 ML/MIN SUNQUEST Comment:[facility]; [place] 05/01/2012 8:15 PM EST 05/01/2012 8:27 PM EST us Jacinto Navarro MD LAB BLOOD ORDERABLES Final Res ult Performing Organization Address [facility]/ZIP Co de Phone Number SUNQUEST * (ABNORMAL) CBC (05/01/2012 8:15 PM EST) WBC 4.48 4.4 - 11.3 K/uL SUNQUEST Comment:[facility]; [place] RBC 3.94(L) 4.50 - 5.90 M/uL SUNQUEST Comment:[facility]; [place] Hemoglobin 12.6(L) 13.8 - 17.4 G/DL SUNQUEST Comment:[facility]; [place] Hematocrit 37.7(L) 41.0 - 51.0 % SUNQUEST Comment:[facility]; [place] MCV 96 80 - 96 FL SUNQUEST Comment:[facility]; [place] Platelet Count 133(L) 150 - 450 K/uL SUNQUEST Comment:[facility]; [place] RDW 16.2(H) 11.6 - 14.6 % SUNQUEST Comment:[facility]; [place] 05/01/2012 8:15 PM EST 05/01/2012 8:27 PM EST us Jacinto Navarro MD LAB BLOOD ORDERABLES Final Res ult SUNQUEST * (ABNORMAL) Phosphorus (05/01/2012 12:00 AM EST) Phosphorus 4.5(H) 2.4 - 4.4 MG/DL SUNQUEST Comment:[facility]; [place] 05/01/2012 05/01/2012 12: 06 AM EST Akin Allan MD LAB BLOOD ORDERABLES Final Resul t SUNQUEST * (ABNORMAL) Magnesium (05/01/2012 12:00 AM EST) Magnesium, Blood 1.4(L) 1.6 - 2.6 MG/DL SUNQUEST Comment:[facility]; [place], [place] 05/01/2012 05/01/2012 12: 06 AM EST Akin Allan MD LAB BLOOD ORDERABLES Final Resul t Performing Organization Address City/[facility]/ZIP Co de Phone Number SUNQUEST * (ABNORMAL) Alcohol (05/01/2012 12:00 AM EST) Alcohol 377(HH) NDET MG/DL SUNQUEST Comment: This sample was repeated, results phoned and read back. [facility] [place], [place] 05/01/2012 05/01/2012 12: 06 AM EST Akin Allan MD LAB BLOOD ORDERABLES Final Resul t Performing Organization Address City/[facility]/[place] Co de Phone Number SUNQUEST documented in this encounter Visit Diagnoses Not on filedocumented in this encounter Additional Health Concerns Infection Onset Date Last Indicated Resolved Time COVID Suspect 06/17/2022 06/17/2022 06/18/2022 12: 43 AM EDT COVID Suspect 01/04/2023 01/04/2023 01/05/2023 6:1 3 [...] documented as of this encounter Care Teams Steam Hand Relationship Specialty Start Date End Date Megan Goodwin MD [address] [place] [address] PCP - General 04/08/10 04/25/19 None, PcpMD [address] [place] [address] PCP - General 04/26/19 06/16/22 System, Provider Not In [address] [place] [address] PCP - General 06/17/22 01/01/23 Mal Mcclelland MD [address] [place] [address] PCP - General Internal Medicine 01/02/23 04/23/23 Vannessa Jimenez MD [address] [place] [address] PCP - Resident Internal Medicine 01/02/23 04/23/23 None, PcpMD [address] [place] [address] PCP - General 04/24/23 10/19/23 Unknown, Provider, [address] [place] [address] PCP - General 10/20/23 02/19/[address], [address] PCP - General 02/20/24 03/04/24 Ketan Verde NP [address] [place] [address] PCP - General Psychiatry 03/05/24 07/29/24 System, Provider Not In PCP - General 07/30/24 01/30/25 Unknown, Provider, [address] [place] [address] PCP - General 01/31/25 02/02/25 Akin Christianson NP [address] [place] [address] PCP - General Nurse Practitioner 02/03/25 Megan Goodwin MD [address] [place] [address] 04/08/10 01/01/23 documented as of this encounter
--- OUTSIDE RECORDS SUMMARY | 2025-02-04 16:35 | XMS_ITS | Encounter Summary ---
Author Organization [facility] Address [address] [place] [address] Care Team Providers Care Protection Manager Name Role Phone Ochin, Provider Primary Care Provider Unavailabl e Encounter Details Date Type Department Care Team (Late st Contact Info) Description 05/02/2023 Case Management Visit [facility] [facility] [address] [facility] SECOND FLOOR [place] [phone] Marquis Lex [address] [facility] [place] [address] Social History Tobacco Use Types Packs/Day Years [...] encounter Progress Notes * Marquis Burnett - 05/02/2023 3:41 PM EST I Inquired about [facility] market rate apartments and it turns out they only offer SROs. Patient and I will continue to look for apartments, [facility] CM Iris will expand search for market rates as well. Sushant will continue to call the [employer]. [facility] rooming house application dropped off, on wait list. Client also purchased cell phone to continue housing search documented in this encounter Plan of Treatment [...] documented as of this encounter Care Teams Protection Manager Relationship Specialty [place] [address] PCP - General 12/22/24 Les Mays [facility] Addiction Health Protection Manager 02/25/18 [facility] 03/01/22 documented as of this encounter
--- OUTSIDE RECORDS SUMMARY | 2025-02-04 16:35 | XMS_ITS | Encounter Summary ---
Author Organization [facility] Address [address] [place] [address] Care Team Providers Care Funeral Arranger Name Role Phone Ochin, Provider Primary Care Provider Unavailabl e Encounter Details Date Type Department Care Team ([place] [facility] st Contact Info) Description 12/13/2023 Interim Notes [place] [address] [place] [phone] Ketan Verde NP Social History Tobacco Use Types Packs/Day Years [...] documented as of this encounter Care Teams Funeral Arranger Relationship Specialty [place] [address] PCP - General 12/22/24 Les Mays [facility] Addiction Health Funeral Arranger 02/25/18 [facility] 03/01/22 documented as of this encounter
--- OUTSIDE RECORDS SUMMARY | 2025-02-04 16:36 | XMS_ITS | Encounter Summary ---
Author Organization [facility] Address [address] [place] [address] Care Team Providers Care Kayaking Instructor Name Role Phone Ochin, Provider Primary Care Provider Unavailabl e Encounter Details Date Type Department Care Team (Late st Contact Info) Description 03/16/2022 Case Management Visit [facility] [facility] [address] [facility] SECOND FLOOR [place] [phone] Marquis Lex [address] [place] [address] Social History Tobacco Use Types Packs/Day Years [...] encounter Progress Notes * Marquis Burnett - 03/16/2022 2:08 PM EST 03/15 Rounds check in Sushant Christianson and I will begin the search for affordable, market rate apartments/rooms as he has done a good job during his transition into dialysis treatment. Sushant has an interview with [facility] on 03/22/2022 in [place]. His transportation is set up. Will look to reach out to Sushant Mays, his old disaster recovery consultant whom Sushant has a strong relationshipwith. Sushant will benefit from more immediate support whenever he is discharged. documented in this encounter Plan of Treatment [...] Patient has a diagnosis of hypertension 02/12/20 Assessment Noted Time PHQ-9 Depression Total Score: 9 01/04/20 18 10:00 AM PDT PHQ-2 Depression Total Score: 0 02/03/20 11:00 AM PST documented as of this encounter Care Teams Kayaking Instructor Relationship Specialty [place] [address] PCP - General 12/22/24 Les Mays [facility] Addiction Health Kayaking Instructor 02/25/18 [facility] 03/01/22 documented as of this encounter"
--- OUTSIDE RECORDS SUMMARY | 2025-02-04 16:36 | XMS_ITS | Encounter Summary ---
Author Organization [facility] Address [address] [place] [address] Care Team Providers Care Lead Trainer Name Role Phone Ochin, Provider Primary Care Provider Unavailabl e Encounter Details Date Type Department Care Team (Late st Contact Info) Description 02/22/2022 Case Management Visit [facility] [facility] [address] [facility] SECOND FLOOR [place] [phone] Marquis Lex [address] [place] [address] Social History Tobacco Use Types Packs/Day Years [...] documented as of this encounter Care Teams Lead Trainer Relationship Specialty [place] [address] PCP - General 12/22/24 Les Mays [facility] Addiction Health Lead Trainer 02/25/18 [facility] 03/01/22 documented as of this encounter
--- OUTSIDE RECORDS SUMMARY | 2025-02-04 16:36 | XMS_ITS | Encounter Summary ---
Author Organization [facility] Address [address] [place] [address] Care Team Providers Care Change Control Coordinator Name Role Phone Ochin, Provider Primary Care Provider Unavailabl e Encounter Details Date Type Department Care Team (Late st Contact Info) Description 03/09/2022 Case Management Visit [facility] [facility] [address] [facility] SECOND FLOOR [place] [phone] Marquis Lex [address] [facility] [place] [address] Social History Tobacco Use Types Packs/Day Years [...] encounter Progress Notes * Marquis Burnett - 03/09/2022 12:08 PM EST Sushant and I have not done much of a search for housing during his current stay at [facility]. I feel he hasbeen improving his attitude and outlook on his treatment. I think it would be in his best interest to not have the stresses of a housing search on his plate currently, as he has been doing a lot better since compliance with his treatment. We are looking to reconnect with his technology coach, Les Mays. Him having more support when he is out of [facility] will be essential for his recovery. documented in this encounter Plan of Treatment [...] documented as of this encounter Care Teams Change Control Coordinator Relationship Specialty [place] [address] PCP - General 12/22/24 Les Mays [facility] Addiction Health Change Control Coordinator 02/25/18 [facility] 03/01/22 documented as of this encounter
--- OUTSIDE RECORDS SUMMARY | 2025-02-04 16:37 | XMS_ITS | Encounter Summary ---
Author Organization [facility] Address [address] [place] [address] Care Team Providers Care Microbiology Laboratory Manager Name Role Phone Ochin, Provider Primary Care Provider Unavailabl e Encounter Details Date Type Department Care Team (Late st Contact Info) Description 02/27/2022 Case Management Visit [facility] [facility] [address] [facility] SECOND FLOOR [place] [phone] Marquis Lex [address] [place] [address] Social History Tobacco Use Types Packs/Day Years [...] documented as of this encounter Care Teams Microbiology Laboratory Manager Relationship Specialty [place] [address] PCP - General 12/22/24 Les Mays [facility] Addiction Health Microbiology Laboratory Manager 02/25/18 [facility] 03/01/22 documented as of this encounter
--- OUTSIDE RECORDS SUMMARY | 2025-02-04 16:37 | XMS_ITS | Encounter Summary ---
Author Organization [facility] Address [address] [place] [address] Care Team Providers Care Hose Wrapper Name Role Phone Ochin, Provider Primary Care Provider Unavailabl e Encounter Details Date Type Department Care Team (Late st Contact Info) Description 02/21/2022 Case Management Visit [facility] [facility] [address] [facility] SECOND FLOOR [place] [phone] [address] [facility] [place] [address] Social History Tobacco Use Types Packs/Day Years [...] documented as of this encounter Care Teams Hose Wrapper Relationship Specialty Start [place] [address] PCP - General 12/22/24 Les Mays [facility] Addiction Health Hose Wrapper 02/25/18 [facility] 03/01/22 documented as of this encounter
--- OUTSIDE RECORDS SUMMARY | 2025-02-04 16:37 | XMS_ITS | Encounter Summary ---
Author Organization [facility] Address [address] [place] [address] Care Team Providers Care Resident Care Supervisor Name Role Phone Ochin, Provider Primary Care Provider Unavailabl e Encounter Details Date Type Department Care Team (Late st Contact Info) Description 10/04/2023 Case Management Visit [facility] [address] [facility] SECOND FLOOR [place] [phone] [address] [facility] [place] [address] Social History Tobacco Use Types Packs/Day Years [...] encounter Progress Notes * Marquis Burnett - 10/04/2023 9:50 AM EDT Client met with CM, Student Services Counselor and [facility] med team regarding current status here at [facility], as wellas potential discharge planning. Client tested negative for substances this week, and client is glad he's been able to maintain that sobriety after relapsing. Client still reports being deeply depressed, will begin new medication to supplement current anti-depressant. Client is against going to prison, has concerns regarding mental health status and sobriety. Client was told to think about potential residential programs focused on psychiatric need. Client will talk to [facility] and connect with a telephonic nurse case manager regarding being pipelined to more support. documented in this encounter Plan of Treatment [...] documented as of this encounter Care Teams Resident Care Supervisor Relationship Specialty [place] [address] PCP - General 12/22/24 Les Mays [facility] Addiction Health Resident Care Supervisor 02/25/18 [facility] 03/01/22 documented as of this encounter
--- OUTSIDE RECORDS SUMMARY | 2025-02-04 16:37 | XMS_ITS | Encounter Summary ---
Author Organization [facility] Address [address] [place] [address] Care Team Providers Care Plate Glass Polisher Name Role Phone Ochin, Provider Primary Care Provider Unavailabl e Encounter Details Date Type Department Care Team (Late st Contact Info) Description 08/23/2023 Case Management Visit [facility] [address] [facility] SECOND FLOOR [place] [phone] Marquis Lex [address] [facility] [address] Social History Tobacco Use Types Packs/Day Years [...] documented as of this encounter Care Teams Plate Glass Polisher Relationship Specialty Start Date [place] [address] PCP - General 12/22/24 Les Mays [facility] Addiction Health Plate Glass Polisher 02/25/18 [facility] 03/01/22 documented as of this encounter
--- OUTSIDE RECORDS SUMMARY | 2025-02-04 16:37 | XMS_ITS | Encounter Summary ---
Author Organization [facility] Address [address] [place] [address] Care Team Providers Care Plastic Maker Name Role Phone Ochin, Provider Primary Care Provider Unavailabl e Encounter Details Date Type Department Care Team (Late st Contact Info) Description 09/26/2023 Case Management Visit [facility] [address] [facility] SECOND FLOOR [place] [phone] Marquis Lex [address] [facility] [place] [address] Social History Tobacco Use Types Packs/Day Years [...] encounter Progress Notes * Marquis Burnett - 09/26/2023 3:30 PM EDT Client, CM, Montessori Toddler Teacher and [facility] med team meet for client rounds to discuss client's behaviors,substance use while at [facility], and potential discharge planning. Client testing positive for cocaine use, admitted to using a few times a week for the last 2-3 weeks. Client will be put on restrictions,and will not be permitted to go on outings. Client states feeling very depressed. Client is lookingto live with father and support him. Client states he would go into [facility], however called it a sentence in relation to his sobriety. Client will meet with [facility] motor coach supervisor within the week, will also plan on meeting with CM on a higher basis. documented in this encounter Plan of Treatment [...] documented as of this encounter Care Teams Plastic Maker Relationship Specialty Start [place] [address] PCP - General 12/22/[address] Addiction Health Plastic Maker 02/25/18 [facility] 03/01/22 documented as of this encounter
--- OUTSIDE RECORDS SUMMARY | 2025-02-04 16:37 | XMS_ITS | Clinical Summary ---
Author Organization [facility] Address [address] [place], [place] [address] Care Team Providers Care Junior Account Executive Name Role Phone Akin Christianson NP Primary Care Provider [phone] Allergies No known active allergies Medications * This document contains information received from the source organization and may not represent a complete record from that organization. ferrous sulfate 324 mg (65 mg iron) TbEC Take 1 tablet (324 mg total) by mouth daily with breakfast. Active folic acid (FOLVITE) 1 MG tablet Take 1 tablet (1 mg total) by mouth daily. 14 tablet 3 Active acetaminophen (TYLENOL) 500 MG tablet Take 1 tablet (500 mg total) by mouth every 6 hours as needed for pain. Active thiamine (Vitamin B1) 100 MG tablet Take 1 tablet (100 mg total) by mouth in the morning. 4 Active REXULTI 3 mg Tab Take 1 tablet (3 mg total) by mouth in the morning. 4 Active hydrOXYzine HCL (ATARAX) 10 MG tablet Take 1 tablet (10 mg total) by mouth every 8 hours as needed for anxiety. 90 tablet 4 Active melatonin 3 mg Tab tablet Take 1 tablet (3 mg total) by mouth every evening. 30 tablet 4 Active clopidogreL (PLAVIX) 75 mg tablet Take 1 tablet (75 mg total) by mouth daily for 20 days. 20 tablet 5 Active atorvaSTATin (LIPITOR) 80 MG tablet Take 1 tablet (80 mg total) by mouth at bedtime for 30 days. 30 tablet 5 Active Additional Information Patient not taking.Reported on 02/01/2025 aspirin 81 MG EC tablet Take 1 tablet (81 mg total) by mouth daily for 30 days. 30 tablet Active OLANZapine (ZyPREXA) 10 MG tablet Take 1 tablet (10 mg total) by mouth every morning & every evening. 20 tablet Active pantoprazole (PROTONIX) [address] tablet Take 1 tablet (40 mg total) by mouth every morning & every evening for 30 days. 30 tablet 5 Active sertraline (ZOLOFT) 100 MG tablet Take 1 tablet (100 mg total) by mouth every morning & every evening. 20 tablet Active sevelamer carbonate (RENVELA) 800 mg tablet Take 1 tablet (800 mg total) by mouth 3 times a day with meals. 30 tablet Active lamoTRIgine (LaMICtal) 25 MG tablet Take 1 tablet (25 mg total) by mouth in the morning. Active LOKELMA 5 gram PwPk powder packet Take 1 packet (5 g total) by mouth daily with breakfast. Active midodrine (PROAMATINE) 2.5 MG tablet Take 1 tablet (2.5 mg total) by mouth daily as needed (sbp <100mm Hg). 30 tablet Active metoprolol tartrate (LOPRESSOR) 25 MG tablet Take 0.5 tablets (12.5 mg total) by mouth in the morning and 0.5 tablets (12.5 mg total) before bedtime. 30 tablet Active Additional Information Patient not taking.Reported on 02/03/2025 gabapentin (NEURONTIN) 100 MG capsule Take 1 capsule (100 mg total) by mouth at bedtime. 30 capsule Active naltrexone (DEPADE) 50 mg tablet Take 1 tablet (50 mg total) by mouth in the morning. 30 tablet 01/06/20 Additional Information Patient not taking.Reported on 12/26/2024 calcium gluc in NaCl, iso-osm (calcium gluconate in NaCl, iso-osm) 1 gram/50 mL IVPB Infuse 50 mL (1 g total) into a venous catheter once for 1 dose. 50 mL 5 01/28/20 Active Problems Problem Noted Date Diagnosed Date Sepsis 02/01/2025 Somnolence 02/01/2025 Acute on chronic respiratory failure with hypoxia and hypercapnia 02/01/2025 Hyperkalemia 01/27/2025 SIRS (systemic inflammatory response syndrome) 1 Unwitnessed fall 12/02/2024 Obstructive sleep apnea 03/27/2024 Overview (02/01/2025): 03/27/2024: ESS = 6. Has snoring, high mallampati score. Will refer for sleep study as he is amenable to the idea of CPAP if he has MEAGAN ESRD needing dialysis 03/09/2024 Gastroenteritis 02/22/2024 Weakness 02/20/2024 Dyspnea 01/29/2024 Dyspnea on exertion 01/29/2024 End stage renal disease 12/09/2023 Moderate episode of recurrent major depressive d isorder 08/03/2023 ESRD (end stage renal disease) 08/03/2023 Pneumonia due to infectious agent 08/03/2023 Chest pain in adult 04/24/2023 Acute on chronic anemia 04/02/2023 Alcohol use disorder 03/31/2023 GI bleed 03/31/2023 Acute blood loss anemia 03/31/2023 Chronic anemia 03/31/2023 Depression 02/13/2023 Major depressive disorder, r ecurrent severe without psychotic features 02/13/2023 Suicidal ideation 01/02/2023 Hypotension 12/20/2022 Acute hyperkalemia 12/20/2022 Vomiting and diarrhea 12/20/2022 Cocaine use disorder 12/20/2022 Elevated alkaline phosphatase level 12/20/2022 Lactic acid acidosis 12/20/2022 Chest pain 12/14/2022 ESRD (end stage renal disease) 11/02/2022 Altered mental status, unspecified 10/19/2022 Generalized muscle weakness 10/17/2022 Metabolic encephalopathy 10/17/2022 Other abnormalities of gait and mobility 023 Other staphylococcus as the cause of diseases classified elsewhere 10/17/2022 Alcohol dependence with withdrawal, unspecified 10/17/2022 Other psychoactive substance abuse, uncomplicate d 10/17/2022 Bacteremia 10/17/2022 Dependence on renal dialysis 10/17/2022 Alcoholic intoxication without complication 05/25 Pneumonia 06/18/2022 Noncompliance with renal dialysis 04/24/2022 Patient's noncompliance with renal dialysis for other reason 04/24/2022 Anemia of chronic disease 02/22/2022 Hyperlipidemia, unspecified 02/22/2022 Personal history of nicotine dependence 02/23/20 22 Secondary hyperparathyroidism of renal origin Overview (10/10/2022): Last Assessment & Plan: Stable F/b nephrology Dialysis 3 x/wk ESRD (end stage renal disease) on dialysis 02/05 Polysubstance abuse 01/28/2021 Overview (10/10/2022): Last Assessment & Plan: Polysubstance abuse -Tox screen positive for barbiturate, cocaine and positive ethanol screening -Patient declined answering questions about polysubstance abuse. Plan: Addiction services consult. Alcoholic fatty liver 11/22/2020 Anxiety and depression 11/22/2020 Overview (10/10/2022): Last Assessment & Plan: Fluoxetine 60 mg daily Seroquel 200 mg nightly Zyprexa 5 mg twice a day as needed Chronic hepatitis, unspecified 11/22/2020 Chronic obstructive pulmonary disease, unspecifi ed 11/22/2020 Gastro-esophageal reflux disease without esophag itis 11/22/2020 MSSA bacteremia 11/22/2020 Kruse's esophagus without dysplasia 12/24/2019 Overview (10/10/2022): 10/28/2020GD with moderately sized hiatal hernia, gastritis, erythematous duodenopathy 11/13/19 EGD results show acute gastritis without bleeding, ulcer of esophagus without bleeding, and esophageal mucosal changes suspicious for long-segment Kruse's esophagus. Last Assessment & Plan: Denies any sxs On daily PPI Plan to continue 11/13/19 EGD results show acute gastritis without bleeding, ulcer of esophagus without bleeding, and esophageal mucosal changes suspicious for long-segment Kruse's esophagus. Last Assessment & Plan: A: Stable, no current symptoms, taking PPI. P: Continue to monitor. 11/13/19 EGD results show acute gastritis without bleeding, ulcer of esophagus without bleeding, and esophageal mucosal changes suspicious for long-segment Kruse's esophagus. Last Assessment & Plan: EGD due, ordered pending scheduling Last Assessment & Plan: Omeprazole 20 mg daily Sucralfate 1 g 4 times a day Alcohol use disorder 05/25/2019 Alcohol withdrawal 05/21/2019 Essential hypertension 05/21/2019 Alcohol withdrawal syndrome without complication 05/21/2019 BPH with urinary obstruction 10/10/2018 Overview (10/10/2022): Last Assessment & Plan: Obstructive voiding sx Prostate mildly enlarged, smooth without nodules PVR 47ml -Restart Tamsulosin 0.4mg daily Kidney lesion, santee sioux, left 01/08/2018 Overview (10/10/2022): Last Assessment & Plan: 01/02/18 US on 12/21/17 showed -An approximately 3 cm rounded density projects off of the 01/02/18 U/S left lower pole. This may represent a lobulated appearance of a normal cortex, however a mass is not excluded Denies hematuria, dysuria, frequency or urgency -CT urogram scheduled. 01/22/18 CT scan findings No evidence for enhancing or suspicious renal mass including of the left kidney. There is focal atrophy/scarring of the left lower pole which likely accounts for focal nodular contour on recent ultrasound and has not significantly changed when compared to November 2011 B12 deficiency 2018 Overview (10/10/2022): Last Assessment & Plan: A: Stable. Last lab 04/30/2021. No current supplement. P: Continue to monitor. Last Assessment & Plan: Labs reviewed monitoring closely Pt started on MVI Follow-up in 2 weeks; sooner PRN Last Assessment & Plan: A: Stable. Last lab 04/30/2021. No current supplement. P: Continue to monitor. Homeless 10/31/2015 Overview (12/26/2022): Will lose apat as of 10/23/2018 Reports will be evicted 10/29/15. Is familiar with senior living system and states will not influence care. Last Assessment & Plan: [facility] bed secured at [facility] Pt will f/u with [facility] [employer] shoe [employer] 10/30 Alcohol use disorder, severe, in early remission 10/31/2015 Overview (12/26/2022): Prevention plan formulated at 08/08/22 visit with addictions fellow: - Call sponsor --> pt needs to establish with a new AA sponsor - Call girlfriend or dad - Listen to music on phone, play Teravac - Go for a walk - Take [...] of alcohol withdrawal. Seen by SW and lacrosse coach referral was made. He was not interested in other outpatient treatment program referral per SW. He was seen by PT who also recommends discharge home. He was advised to abstain from alcohol use. Patient reports he recently lost his apartment and will be working with for discharge disposition planning. 09/28/19 ED for acute alcohol intoxication 09/16/19 Hospitalized for detox 09/16/19 [facility] /07/26/2018: Vivitrol given T/C from [facility]. Admitted 01-04-16 Alcohol withdrawal, hypertension w/ tachycardia , low magnesium gastritis secondary to alcohol .Pt Rx Ativan protocol with good results. Discharging needs PCP F/U, scheduled. Pelon Mcgrath RN 10/31/2015 - Significantly elevated. Diastolic. Referred to . Last Assessment & Plan: Struggling recently relapsed Does not wish to restart LUIS Will continue discussion re detox/CCS Resolved Problems Problem Noted Date Diagnosed Date Resolved Date Altered mental status 04/17/20242024 Hyperkalemia 02/28/2024 12/05/2024 Suicidal ideation 02/08/2023 02/14/2023 Hyperkalemia 02/08/2023 02/14/2023 Suicidal ideation 12/25/2022 01/02/2023 Syncope 12/20/2022 02/14/2023 Suicidal ideations 10/25/2022 Bacteremia 10/17/2022 10/17/2022 Uremia 10/17/2022 10/17/2022 Uremia 10/17/2022 02/14/2023 Unspecified kidney failure 10/17/2022 1 04/16/2022 End stage renal disease 10/17/2022 1104/2022 Uremia 10/09/2022 10/17/2022 Leucocytosis 06/18/2022 10/10/2022 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 02/15/20 23 Overview (10/10/2022): 10/19/21 - recently finished 8 day Augmentin course, 11/10 surgery f/u appt 09/2021 - diagnosed with stable perforated appendix at [facility], discharged with abx and surgery f/u Last Assessment & Plan: Need to reschedule EGD + colonoscopy 10/19/21 - recently finished 8 day Augmentin course, 11/10 surgery f/u appt 09/2021 - diagnosed with stable perforated appendix at [facility], discharged with abx and surgery f/u Last Assessment & Plan: Pt to call gen surg office to schedule colonoscopy Hypomagnesemia 05/21/2019 10/10/2022 Encounters Date Type Department Care Team Description 02/03/2025 11:21 AM EST - 02/04/2025 11:32 AM EST Emergency [facility] [address] [place] [address] Suzanna Stevens MD Suicidal ideation (Primary Dx); Depression, unspecified depression type; Alcoholic intoxication with complication; End stage renal disease ([facility]); Healthcare-associated pneumonia Discharge Disposition: [facility] 01/31/2025 4:42 PM EST - 02/02/2025 10:20 AM EST Hospital Encounter [facility] [address] [place] [address] Wilfredo Taveras DO Poorvu, Eli C, MD Strand, Tessera, DO Suarez Meneses, Cindy J, MD Kochhar, Gagandeep S, MD HAP (hospital-acquired pneumonia) (Primary Dx); Acute hypercapnic respiratory failure ([facility]) Discharge Disposition: Home or Self Care 01/31/2025 Travel 01/27/2025 12:17 PM EST - 01/30/2025 3:29 PM [place] [address] Antonio Gilmore MD Jiang, Shaolay X, MD Kochhar, Gagandeep S, MD Acute hyperkalemia (Primary Dx); History of noncompliance with medical treatment; Depression, unspecified depression type; Alcohol use disorder; Multiple falls; Contusion of left knee, initial encounter; Closed fracture of multiple ribs of right side, initial encounter; Pleural effusion, right; Renal cyst, santee sioux, hemorrhage; Acute blood loss anemia; Transaminitis; Effusion of left knee; Tachycardia; Abnormal electrocardiography Discharge Disposition: Home-Health Care [facility] 01/27/2025 Travel 12/26/2024 4:20 PM EDT - 12/29/2024 1:09 PM EDT Hospital Encounter [address] [address] Suzanna Stevens MD Strand, Tessera, DO Brown, Megan D, DO Chen, Xinyu, MD Kochhar, Gelacio Medrano MD Symptomatic hypotension (Primary Dx) Discharge Disposition: HomeHealth Care [facility] 12/26/2024 Travel 12/23/2024 12:55 PM EDT - 12/24/2024 12:30 PM EDT Hospital Encounter [place] [id number] Richmond Winslwo MD Jean, Hendy, MD Kochhar, Gelacio Medrano MD Ataxic gait (Primary Dx); Nystagmus; History of alcohol abuse; ESRD on dialysis Discharge Disposition: Home or Self Care 12/23/2024 Travel 12/02/2024 3:14 PM EDT - 12/05/2024 5:01 PM EDT Hospital Encounter [address] [address] Brown Mike MD Pasquarello, Donald A, MD Phinney, Blessing, MD Fall, initial encounter (Primary Dx); Alcoholic intoxication without complication; Alcohol use disorder; End stage renal disease Discharge Disposition: [facility] Care [facility] 12/02/2024 Travel 11/10/2024 Telephone [facility] - [address] [place] [id number] Linda Correa, [facility] Communication from Last 3 Months Immunizations Immunization Administration Dates Next Due COVID-19 Vaccine (MODERNA) Bivalent Formulation (as of November 2021) 12/12/2021 COVID-19 Vaccine - (DONNIE / ALLISON AND ALLISON) 02/26/2021,08/20/2020 DTaP Vaccine (INFANRIX/DAPTA EDWIN) PEDIATRIC 09/20/2016 Hepatitis A Vaccine (HAVRIX /VAQTA) ADULT 07/11/2021,12/02/2018 Hepatitis B 08/07/2022,02/27/2022 Hepatitis B - Recombinant Cp G Adjuvant (HEPLISAV-B) 05/01/2023,08/29/2022,06/29/2022,06/01,05/06/2022 Influenza Vaccine - STANDARD - MDV (FLUZONE/AFLURIA) 01/10/2018,02/02/2013 Influenza Vaccine - STANDARD - SDV (FLUZONE/FLUARIX/FLULAVAL/AFLURIA) 12/06/2022,01/07/2021,01/05/2016 Pneumococcal polysaccharide vaccine 23-valent (PPSV23/[id number]) 12/14/2017,11/13/2015,10/26/2015,04/17 Tdap Vaccine (BOOSTRIX/ADACEL) 09/20/2016,2015 Family History Medical History Relation Comments Depression Father Diabetes Mother d. 88 Thyroid disease Mother Relation Status Comments Father Alive Mother Social History Tobacco Use Types Packs/Day Years Used Date Smoking Tobacco: Every Day Cigarettes Tobacco Cessation:Ready to Q uit: Not Asked; Counseling Given: Not Answered Alcohol Use Standard Drinks/Week Comments Yes 28 (1 standard drink = 0.6 oz pu re alcohol) 1 1/2 pints daily Social Connection and Isolation Panel Answer Date Recorded Frequency of Communication with Friends and Fami ly Not on file 03/10/2024 Frequency of Social Gatherings with Friends and Family Not on file 03/10/2024 Attends Bahai Services Not on file 03/10 Active Member [...] housing, medical care, and heating? Hard 02/01/2025 [facility] of Occupat ional Health - Occupational Stress [...] any time in the past 12 m [facility], were you homeless or living in a senior living (including now)? Yes 02/01/2025 B1300 Health Literacy Answer Date Recor ded How often do you need to hav e someone help you when you read instructions, pamphlets, or other written material from your doctor or pharmacy? Sometimes 01/28/2025 [facility] Utilities Answer Date Recorded In the [...] Not on fi le Not on file Last Filed Vital Signs [...] Mass Index 25.11 01/31/2025 5:46 PM EST Plan of Treatment Health Maintenance Due Date Last Done Comments PSA 1962 Prostate Cancer Screening 1962 SDM 1962 Depression Screening 1974 Medicare Initial AWV [id number] 12/24/2005 CT Colonography 2007 Colonoscopy 2007 FIT 2007 Multitarget Stool DNA (Cologuard) 2007 Sigmoidoscopy 2007 Zoster Vaccine (1 of 2) 01/04/2012 Colorectal Cancer Screening 06/24/2022 FOBT 06/24/2022 06/24/2021 COVID-19 Vaccine ( season) 2024 12/12/2021, 02/26/2021, 08/20/2020 Influenza Vaccine (#1) 2024 , 12/06/2022, 01/07/2021, Additional history exists Lipid Panel 04/18/2025 04/18/2024, 08/24, 04/25/2023, Additional history exists Blood Pressure 02/04/2026 02/04/2025 Hemoglobin A1c 09/04/2026 09/05/2023, 07/24, 04/25/2023, Additional history exists DTaP,Tdap,and Td Vaccines (4 - Td or Tdap) 09/20/2026 09/20/2016, 09/20/2016, 10/26/2015 Hepatitis C Screening Completed 2018 Pneumococcal Vaccine: 50+ Years Completed 06/12/2024, 12/14/2017, 11/13/2015, Additional history exists Meningococcal B Vaccines Aged Out No longer eligible based on patient's age to complete this topic Meningococcal Vaccines Aged Out No lo nger eligible based on patient's age to complete this topic Medical Devices Implanted Type Area Thermal Molder Device Identifier Shelf Expiration Date Model / Serial / Lot [employer]ales Long-Term Dialysis Catheter 23 Cm ([id number]) - [id number] Implanted:Qty : 1 on 08/06/2023 by Feroz Morgan PA at [facility] N/A: Chest Wall BARD PERIPHERAL VASCULAR - DIV C R BARD (WD) [id number] 12/23/2024 [id number] / / [id number] Procedures Procedure Name Priority Date/Time Associated Diagnosis Comments DRUG SCREEN, URINE STAT 02/04/2025 3: 54 AM EST CBC AND DIFFERENTIAL STAT 02/03/2025 12:30 PM EST ETHANOL, BLOOD STAT 02/03/2025 12:30 PM EST MAGNESIUM STAT 02/03/2025 12:30 PM EST CBC AND DIFFERENTIAL STAT 02/03/2025 12:30 PM EST TROPONIN (ALL) STAT 02/03/2025 12:30 PM EST BASIC METABOLIC PANEL STAT 02/03/2025 12:30 PM EST XR CHEST 2 VW STAT 02/03/2025 12:13 PM EST ECG 12-LEAD STAT 02/03/2025 11:42 AM EST BASIC METABOLIC PANEL Timed 02/02/2025 5:07 AM EST TYPE AND SCREEN Routine 02/02/2025 3:43 AM EST CBC Timed 02/02/2025 3:43 AM EST CBC Timed 02/01/2025 9:38 PM EST HEMODIALYSIS INPATIENT Routine 02/01/2025 4:42 PM EST URINALYSIS WITH URINE CULTURE REFLEX Routine 02/01/2025 12:03 PM EST CULTURE, AEROBIC, URINE Routine 02/01/2025 12:03 PM EST STREP PNEUMONIAE URINE ANTIGEN Routine 02/01/2025 12:03 PM EST LEGIONELLA URINARY ANTIGEN Routine 02/01/2025 12:03 PM EST CBC AND DIFFERENTIAL Routine 02/01/2025 5:25 AM EST CBC AND DIFFERENTIAL Routine 02/01/2025 5:25 AM EST LACTIC ACID STAT 02/01/2025 5:25 AM EST HEPATIC FUNCTION PANEL Routine 02/01/2025 5:25 AM EST PHOSPHORUS Routine 02/01/2025 5:25 AM EST MAGNESIUM Routine 02/01/2025 5:25 AM EST BASIC METABOLIC PANEL Routine 02/01/2025 5:25 AM EST CORONAVIRUS SARS-COV-2 AND INFLUENZA A/B Routine 02/01/2025 2:47 AM EST CULTURE, BLOOD Routine 02/01/2025 2:47 AM EST CULTURE, BLOOD Routine 02/01/2025 2:47 AM EST MRSA/SA BY PCR Routine 02/01/2025 2:47 AM EST BLOOD GAS, VENOUS STAT 02/01/2025 12:25 AM EST BLOOD GAS, VENOUS STAT 01/31/2025 10:32 PM EST BLOOD GAS, VENOUS STAT 01/31/2025 8:2 6 PM EST XR PORTABLE CHEST 1 VW STAT 01/31/2025 7:[address] HEAD WO CONTRAST STAT 01/31/2025 6 :55 PM EST ECG 12-LEAD STAT 01/31/2025 5:14 PM EST POCI GLUCOSE Routine 01/31/2025 5:12 PM EST CBC AND DIFFERENTIAL STAT 01/31/2025 5:06 PM EST PROCALCITONIN STAT 01/31/2025 5:06 PM EST CK (CREATINE KINASE) STAT 01/31/2025 5:06 PM EST ETHANOL, BLOOD STAT 01/31/2025 5:06 PM EST CBC AND DIFFERENTIAL STAT 01/31/2025 5:06 PM EST COMPREHENSIVE METABOLIC PANEL STAT 01/31/2025 5:06 PM EST BASIC METABOLIC PANEL Timed 01/30/2025 5:34 AM EST CBC Timed 01/30/2025 5:34 AM EST HEMODIALYSIS INPATIENT Routine 01/29/2025 4:10 AM EST BASIC METABOLIC PANEL Timed 01/29/2025 4:07 AM EST CBC Timed 01/29/2025 4:07 AM EST ECG 12-LEAD Routine 01/28/2025 11:23 AM EST Abnormal electrocardiography ECG 12-LEAD Routine 01/28/2025 10:22 AM EST Tachycardia COMPREHENSIVE METABOLIC PANEL Routine 01/28/2025 5:17 AM EST CBC Routine 01/28/2025 5:17 AM EST URINALYSIS WITH URINE CULTURE REFLEX STAT 01/28/2025 1:46 AM EST DRUG SCREEN, URINE STAT 01/28/2025 1: 46 AM EST CULTURE, AEROBIC, URINE STAT 01/28/2025 1:46 AM EST HEMODIALYSIS INPATIENT [...] AND RSV STAT 01/27/2025 2:10 PM EST APTT STAT 01/27/2025 2:07 PM EST PROTIME-INR STAT 01/27/2025 2:07 PM EST TROPONIN (ALL) STAT 01/27/2025 2:[address] CHEST ABDOMEN PELVIS TRAUMA W CONTRAST STAT 01/27/2025 2:[address] CERVICAL SPINE WO CONTRAST STAT 01/27/2025 1:[address] HEAD ANTICOAG WO CONTRAST STAT 01/27/2025 1:55 PM EST ECG 12-LEAD STAT 01/27/2025 12:57 PM EST POCI GLUCOSE Routine 01/27/2025 12:49 PM EST RAINBOW DRAW STAT 01/27/2025 12:40 PM EST CBC AND DIFFERENTIAL STAT 01/27/2025 12:40 PM EST HEPATITIS B SURFACE ANTIGEN Routine 01/27/2025 12:40 PM EST HEPATIC FUNCTION PANEL Routine 01/27/2025 12:40 PM EST TOXICOLOGY SCREEN, BLOOD STAT 01/27/2025 12:40 PM EST LIGHT BLUE TOP STAT 01/27/2025 12:40 PM EST CBC AND DIFFERENTIAL STAT 01/27/2025 12:40 PM EST TROPONIN (ALL) STAT 01/27/2025 12:40 PM EST MAGNESIUM STAT 01/27/2025 12:40 PM EST BASIC METABOLIC PANEL STAT 01/27/2025 12:40 PM EST DRUG SCREEN, URINE Routine 12/28/2024 12:03 PM EDT URINALYSIS WITH URINE CULTURE REFLEX Routine 12/28/2024 12:03 PM EDT ECG 12-LEAD STAT 12/27/2024 8:29 AM EDT CBC AND DIFFERENTIAL Routine 12/27/2024 3:42 AM EDT CBC AND DIFFERENTIAL Routine 12/27/2024 3:42 AM EDT BASIC METABOLIC PANEL Routine 12/27/2024 3:42 AM EDT HEPATIC FUNCTION PANEL Routine 12/27/2024 3:42 AM EDT PHOSPHORUS Routine 12/27/2024 3:42 AM EDT MAGNESIUM Routine 12/27/2024 3:42 AM EDT TROPONIN (ALL) Routine 12/26/2024 8:00 PM EDT LACTIC ACID, REFLEXED Timed 12/26/2024 8:00 PM EDT LACTIC ACID WITH REFLEX STAT 12/26/2024 5:11 PM EDT XR PORTABLE CHEST 1 VW STAT 12/26/2024 5:01 PM EDT RAINBOW DRAW STAT 12/26/2024 5:01 PM EDT CBC AND DIFFERENTIAL STAT 12/26/2024 5:01 PM EDT BLOOD BANK HOLD TUBE STAT 12/26/2024 5:01 PM EDT CBC AND DIFFERENTIAL STAT 12/26/2024 5:01 PM EDT TSH STAT 12/26/2024 5:01 PM EDT TROPONIN (ALL) STAT 12/26/2024 5:01 PM EDT MAGNESIUM STAT 12/26/2024 5:01 PM EDT COMPREHENSIVE METABOLIC PANEL STAT 12/26/2024 5:01 PM EDT BASIC METABOLIC PANEL Routine 12/24/2024 5:26 AM EDT CBC Routine 12/24/2024 5:[address] HEAD WO CONTRAST STAT 12/23/2024 8 :46 PM EDT HEPATIC FUNCTION PANEL Routine 12/23/2024 5:21 PM EDT TROPONIN (ALL) STAT 12/23/2024 5:21 PM EDT POTASSIUM STAT 12/23/2024 5:21 PM EDT CORONAVIRUS SARS-COV-2 AND INFLUENZA A/B STAT 12/23/2024 3:58 PM EDT CBC AND DIFFERENTIAL STAT 12/23/2024 3:54 PM EDT PHOSPHORUS Routine 12/23/2024 3:54 PM EDT ETHANOL, BLOOD STAT 12/23/2024 3:54 PM EDT CBC AND DIFFERENTIAL STAT 12/23/2024 3:54 PM EDT HS TROPONIN T(REFLEX 3 HR) STAT 12/23/2024 3:54 PM EDT MAGNESIUM STAT 12/23/2024 3:54 PM EDT BASIC METABOLIC PANEL STAT 12/23/2024 3:54 PM EDT ECG 12-LEAD STAT 12/23/2024 1:12 PM EDT CBC Timed 12/05/2024 7:29 AM EDT BASIC METABOLIC PANEL Timed 12/05/2024 7:29 AM EDT MAGNESIUM Timed 12/05/2024 7:29 AM EDT POCI GLUCOSE Routine 12/04/2024 11:47 AM EDT XR ABDOMEN AP Routine 12/04/2024 9:53 AM EDT BASIC METABOLIC PANEL STAT 12/04/2024 5:06 AM EDT CBC STAT 12/04/2024 5:06 AM EDT MAGNESIUM Timed 12/04/2024 5:06 AM EDT US ABDOMEN LIMITED STAT 12/03/2024 3: 22 PM EDT HEPATITIS B SURFACE ANTIGEN STAT 12/03/2024 12:21 PM EDT CBC AND DIFFERENTIAL STAT 12/03/2024 11:25 AM EDT CELLAVISION MIFF STAT 12/03/2024 11:25 AM EDT CBC AND DIFFERENTIAL STAT 12/03/2024 11:25 AM EDT COMPREHENSIVE METABOLIC PANEL STAT 12/03/2024 11:25 AM EDT MAGNESIUM Timed 12/03/2024 11:25 AM EDT ECG 12-LEAD STAT 12/03/2024 10:33 AM EDT CBC AND DIFFERENTIAL STAT 12/02/2024 5:52 PM EDT CBC AND DIFFERENTIAL STAT 12/02/2024 5:52 PM EDT COMPREHENSIVE METABOLIC PANEL STAT 12/02/2024 5:52 PM EDT MAGNESIUM STAT 12/02/2024 5:[address] CERVICAL SPINE WO CONTRAST STAT 12/02/2024 4:[address] HEAD WO CONTRAST STAT 12/02/2024 4 :45 PM EDT ED ULTRASOUND GUIDED PIV Routine 12/02/2024 3:09 PM EDT LIPID PANEL Routine 04/18/2024 8:05 AM EST HEMOGLOBIN A1C Routine 08/03/2023 9:07 PM EDT from Last 3 Months or Most Recently Relevant to Health Maintenance Results * (ABNORMAL) Drug Screen, Urine (02/04/2025 3:54 AM EST) Only the most recent of3 resultswithin the time period is included. 6-Aceytlmorphine Screen, Urine Negative Negative 02/04/2025 4:20 AM [facility] Comment:Add on order [id number] Opiates and Oxycodone, Urine, Confirmation, if confirmation desired. Amphetamines Screen, Urine Negative Negative 02/04/2025 4:20 AM [facility] Comment: Screen for Amphetamine, Metamphetamine or other Amphetamine-like compounds. Add-on order [id number] Amphetamine, Urine, Confirmation if confirmation desired. Barbiturates Screen, Urine Negative Negative 02/04/2025 4:20 AM [facility] Comment:Add-on order [id number] Barbiturate, Urine, Confirmation if confirmation desired. Benzodiazepine Screen, Urine Negative Negative 02/04/2025 4:20 AM [facility] Comment: Add-on order [id number] Benzodiazepine, Urine, Confirmation if confirmation desired. Buprenorphine Screen, Urine Negative Negative 02/04/2025 4:20 AM [facility] Comment:Add-on order [id number] Buprenorphine, Urine, Confirmation if confirmation desired. Cannabinoids Screen, Urine Negative Negative 02/04/2025 4:20 AM [facility] Comment:Add-on order [id number] Cannabinoids, Urine, if confirmation desired. Cocaine Metabolite Screen, Urine Positive(A) Negative 02/04/2025 4:20 AM [facility] Comment:Add-on order [id number] Cocaine, Urine, Confirmation if confirmation desired. Ethanol Screen, Urine Negative Negative 02/04/2025 4:20 AM [facility] Fentanyl Screen, Urine Negative Negative 02/04/2025 4:20 AM [facility] Comment:Add-on order [id number] Fentanyl Confirmation, Urine, if confirmation desired. Methadone Screen, Urine Negative Negative 02/04/2025 4:20 AM [facility] Comment:Add order [id number] Me thadone, Urine, Confirmation if confirmation desired. Opiates Screen, Urine Negative Negative 02/04/2025 4:20 AM EST [facility] Comment: Screen for Morphine, Codeine, Hyrdocodone, Hydromorphone, or other Morphine- related opiates. Add on order [id number] Opiates and Oxycodone, Urine, Confirmation if confirmation desired. Oxycodone Screen, Urine Negative Negative 02/04/2025 4:20 AM EST [facility] Comment:Add-on order [id number] Opiates and Oxycodone, Urine, Confirmation if confirmation desired. Tramadol Screen, Urine Negative Negative 02/04/2025 4:20 AM EST [facility] Comment:Add-on order [id number] Tramadol Confirmation, Urine, if confirmation desired. Creatinine, Yang Urine 60.0 >=15.0 mg/dL 02/04/2025 4:20 AM [facility] Urine URINE SPECIMEN / Unknown Collection / Unknown 02/04/2025 3:54 AM EST 02/04/2025 3:57 AM EST [facility] - 02/04/2025 4:20 AM EST These [...] can be done upon specific request. us Suzanna Stevens MD URINE ORDERABLES Final Result [facility] [address] [place] [address] * (ABNORMAL) Troponin (02/03/2025 12:30 PM EST) Only the most recent of6 resultswithin the time period is included. Pathologist [facility] Troponin T HS 80(H) <52 ng/L 02/03/2025 1:30 PM [facility] Blood PERIPHERAL BLOOD SPECIMEN / Unknown Venipuncture / Unknown 02/03/2025 12:30 PM EST 02/03/2025 12:36 PM EST Suzanna Stevens MD LAB BLOOD ORDERABLES Final Re sult [facility] [address] [place] [address] * (ABNORMAL) CBC and Differential (02/03/2025 12:30 PM EST) Only the most recent of9 resultswithin the time period is included. Pathologist [facility] WBC 10.57 4.00 - 11.00 K/uL 02/03/2025 12:46 PM [facility] RBC 3.05(L) 4.10 - 5.60 M/uL 02/03/2025 12:46 PM [facility] Hemoglobin 9.0(L) 12.7 - 16.7 g/dL 02/03/2025 12:46 PM [facility] Hematocrit 29.1(L) 38.1 - 50.1 % 02/03/2025 12:46 PM [facility] MCH 29.5 23.0 - 37.0 pg 02/03/2025 12:46 PM [facility] MCHC 30.9 29.0 - 38.0 g/dL 02/03/2025 12:46 PM [facility] MCV 95 82 - 98 fL 02/03/2025 12:46 PM [facility] RDW 18.3(H) 11.5 - 14.5 % 02/03/2025 12:46 PM [facility] Platelet Count 411 150 - 450 K/uL 02/03/2025 12:46 PM [facility] MPV 9.9 6.0 - 14.0 fL 02/03/2025 12:46 PM [facility] Neutrophil 68.4 % 02/03/2025 12:46 PM [facility] Lymphocyte 16.3 % 02/03/2025 12:46 PM [facility] Monocyte 12.2 % 02/03/2025 12:46 PM [facility] Eosinophil 0.4 % 02/03/2025 12:46 PM [facility] Basophil 0.7 % 02/03/2025 12:46 PM [facility] Immature Granulocyte ([place], Myelo, Promyelocyte) 2.0 % 02/03/2025 12:46 PM [facility] Absolute Neutrophil Count 7.24 1.50 - 7.70 K/uL 02/03/2025 12:46 PM [facility] Absolute Immature Granulocyte ([place], Myelo, Promyelocyte) 0.21(H) 0.00 - 0.09 K/uL 02/03/2025 12:46 PM [facility] Absolute Lymphocyte Count 1.72 1.50 - 4.00 K/uL 02/03/2025 12:46 PM [facility] Absolute Monocyte Count 1.29(H) 0.16 - 1.26 K/uL 02/03/2025 12:46 PM [facility] Absolute Eosinophil Count 0.04(L) 0.15 - 0.30 K/uL 02/03/2025 12:46 PM [facility] Absolute Basophil Count 0.07 0.00 - 0.21 K/uL 02/03/2025 12:46 PM [facility] Blood PERIPHERAL BLOOD SPECIMEN / Unknown Venipuncture / Unknown 02/03/2025 12:30 PM EST 02/03/2025 12:36 PM EST Suzanna Stevens MD LAB BLOOD ORDERABLES Final Re sult [facility] [address] [place] [address] * Magnesium (02/03/2025 12:30 PM EST) Only the most recent of10 resultswithin the time period is included. Magnesium, Blood 2.0 1.6 - 2.6 mg/dL 02/03/2025 1:30 PM [facility] Blood PERIPHERAL BLOOD SPECIMEN / Unknown Venipuncture / Unknown 02/03/2025 12:30 PM EST 02/03/2025 12:36 PM EST us Suzanna Stevens MD LAB BLOOD ORDERABLES Final Re sult Performing Organization Address [facility] Co de Phone Number [facility] [address] [place] [address] * Ethanol (02/03/2025 12:30 PM EST) Only the most recent of3 resultswithin the time period is included. Alcohol <10 <10 mg/dL 02/03/2025 1:39 PM EST [facility] Blood PERIPHERAL BLOOD SPECIMEN / Unknown Venipuncture / Unknown 02/03/2025 12:30 PM EST 02/03/2025 12:36 PM EST Suzanna Stevens MD LAB BLOOD ORDERABLES Final Re sult Performing Organization Address [facility] Phone Number [address] [address] * (ABNORMAL) Basic Metabolic Panel (02/03/2025 12:30 PM EST) Only the most recent of12 resultswithin the time period is included. Sodium 140 135 - 146 mmol/L 02/03/2025 1:30 PM [facility] Potassium 4.2 3.4 - 5.2 mmol/L 02/03/2025 1:30 PM [facility] Chloride 97(L) 98 - 110 mmol/L 02/03/2025 1:30 PM [facility] Total CO2/Bicarbonat e 25 24 - 32 mmol/L 02/03/2025 1:30 PM [facility] Anion Gap 18(H) 2 - 15 mmol/L 02/03/2025 1:30 PM [facility] BUN 50(H) 7 - 24 mg/dL 02/03/2025 1:30 PM [facility] Creatinine, Blood 9.30(H) 0.60 - 1.30 mg/dL 02/03/2025 1:30 PM [facility] Glucose, Blood 93 50 - 100 [...] ORDERABLES Final Re sult [facility] [address] [place] [address] * XR Chest 2 Vw (if able [...] central line in good position, as before. us Suzanna Stevens MD IMG DIAGNOSTIC IMAGING ORDERA BLES Final Result * ECG 12 lead (02/03/2025 11:42 AM EST) Only the most recent of8 resultswithin the time period is included. Ventricular Heart Rate 84 BPM EKG BUR MUSE Atrial Heart Rate 84 BPM EKG BUR MUSE AK Interval 204 ms EKG BUR MUSE QRSD Interval 152 ms EKG BUR MUSE QT Interval 404 ms EKG BUR MUSE QTC Interval 477 ms EKG BUR MUSE P [place] 56 degrees EKG BUR MUSE R [place] -52 degrees EKG BUR MUSE T Wave [place] 22 degrees EKG BUR MUSE 02/03/2025 11:4 0 AM EST 02/03/2025 2:28 PM EST Narrative EKG BUR MUSE - 02/03/2025 2:28 PM EST Normal sinus rhythm Right bundle branch block Left anterior fascicular block --- Bifascicular block --- Abnormal ECG When compared with ECG of 31-JAN-2025, No significant interval change Confirmed by Vincent Wilson ([id number]) on 02/03/2025 2:28:53 PM Procedure Note Vincent Wilson MD - 02/03/2025 Normal sinus rhythm Right bundle branch block Left anterior fascicular block --- Bifascicular block --- Abnormal ECG When compared with ECG of 31-JAN-2025, No significant interval change Confirmed by Vincent Wilson ([id number]) on 02/03/2025 2:28:53 PM us Suzanna Stevens MD ECG ORDERABLES Final Result [facility] [address] [place] [id number] * (ABNORMAL) CBC (02/02/2025 3:43 AM EST) Only the most recent of8 resultswithin the time period is included. WBC 10.77 4.00 - 11.00 K/uL 02/02/2025 3:50 AM EST [facility] RBC 2.56(L) 4.10 - 5.60 M/uL 02/02/2025 3:50 AM EST [facility] Hemoglobin 7.6(L) 12.7 - 16.7 g/dL 02/02/2025 3:50 AM EST [facility] Hematocrit 23.7(L) 38.1 - 50.1 % 02/02/2025 3:50 AM EST [facility] MCH 29.7 23.0 - 37.0 pg 02/02/2025 3:50 AM EST [facility] MCHC 32.1 29.0 - 38.0 g/dL 02/02/2025 3:50 AM EST [facility] MCV 93 82 - 98 fL 02/02/2025 3:50 AM EST [facility] RDW 17.1(H) 11.5 - 14.5 % 02/02/2025 3:50 AM EST [facility] Platelet Count 329 150 - 450 K/uL 02/02/2025 3:50 AM [facility] MPV 10.0 6.0 - 14.0 fL 02/02/2025 3:50 AM EST [facility] Blood PERIPHERAL BLOOD SPECIMEN / Unknown Venipuncture / Unknown 02/02/2025 3:43 AM EST 02/02/2025 3:46 AM EST Gelacio Garcia MD LAB BLOOD ORDERABLES Ann l Result [facility] [address] [place] [address] * Type and Screen (02/02/2025 3:43 AM EST) ABO and Rh A POS 02/02/2025 4:52 AM EST [facility] Antibody Screen NEG 4:52 AM EST [facility] TS Expiration Date 02/05/2025 23:59 02/02/2025 4:52 AM EST [facility] Blood Venipuncture / Unknown 02/02/2025 3:43 AM EST 02/02/2025 3:46 AM EST us Sirisha [facility] TEST ORDERABLES Final Result [facility] [address] [place] [address] * Hemodialysis inpatient (02/01/2025 4:42 PM EST) Narrative Geoffrey Ayala RN - 02/01/2025 4:42 PM EST Geoffrey Ayala RN 02/01/2025 4:48 PM Hemodialysis Nursing Procedure Note Patient: Sushant Christianson : 1960 CSN: [id number] Treatment Summary: Patient received 3 hrs of [...] To be determined Geoffrey Ayala RN 02/01/2025 Iris Scherer MD DIALYSIS ORDERABLES Final Resu lt * Culture, Aerobic, Urine (02/01/2025 12:03 PM EST) Only the most recent of2 resultswithin the time period is included. Pathologist [facility] Culture <10,000 CFU/ml mixed urogenital magen, probable contamination FEL[facility] 02/02/2025 10:02 AM EST [facility] Urine MID-STREAM URINE SPECIMEN / Unknown Collection / Unknown 02/01/2025 12:03 PM EST 02/01/2025 12:15 PM EST [employer] MICROBIOLOGY - GENERAL ORDERAB LES Final Result Performing Organization Address City/[facility]/ZIP Co de Phone Number [facility] [address] [place] [address], * Legionella Urinary Antigen (02/01/2025 12:03 PM EST) Pathologist [facility] Legionella pneumophila serogroup 1 antigen Negative Negative [facility] 02/01/2025 10:28 PM EST [facility] Comment:Suggesting no recent or current infection. [...] 12:03 PM EST 02/01/2025 12:05 PM EST [employer] MICROBIOLOGY - GENERAL ORDERAB LES Final Result Performing Organization Address City/[facility]/ZIP Co de Phone Number [facility] [address] [place] [address], * Strep Pneumoniae Urine Antigen (02/01/2025 12:03 PM EST) Pathologist [facility] Strep pneumo Urine Antigen Negative Negative [facility] 02/01/2025 10:29 PM EST [facility] Comment:Suggesting no curren t or recent pneumococcal infection. Infection due to S. Pneumoniae can not be ruled out since the antigen present in the sample maybe below the detection limit of the test. Urine MID-STREAM URINE SPECIMEN / Unknown Collection / Unknown 02/01/2025 12:03 PM EST 02/01/2025 12:05 PM EST us Tessera Strand DO MICROBIOLOGY - GENERAL ORDERAB LES Final Result [facility] [address] [place] [address], * (ABNORMAL) Urinalysis with Reflex to Urine Culture (02/01/2025 12:03 PM EST) Only the most recent of3 resultswithin the time period is included. Pathologist [facility] Color, Urine Yellow Colorless, Straw, Yellow 02/01/2025 12:15 PM EST [facility] Clarity, Urine Clear Clear 02/01/2025 12:15 PM EST [facility] pH, Urine 8.0 5.0 - 9.0 02/01/2025 12:15 PM EST [facility] Protein, Urine 100 mg/dL(A) Negative 02/01/2025 12:15 PM EST [facility] Glucose, Urine 50 mg/dL(A) Negative 02/01/2025 12:15 PM EST [facility] Ketone, Urine 5 mg/dL(A) Negative 02/01/2025 12:15 PM EST [facility] Bilirubin, Urine Negative Negative 02/01/2025 12:15 PM EST [facility] Urobilinogen, Urine Negative Negative 02/01/2025 12:15 PM EST [facility] Blood, Urine Negative Negative 02/01/2025 12:15 PM EST [facility] Leukocyte Esterase, Urine Small(A) Negative 02/01/2025 12:15 PM EST [facility] Nitrite, Urine Negative Negative 02/01/2025 12:15 PM EST [facility] Specific [place], Urine 1.010 1.001 - 1.030 02/01/2025 12:15 PM EST [facility] White Blood Cells, Urine 12(H) <=4 /hpf 02/01/2025 12:15 PM EST [facility] Red Blood Cells, Urine 4(H) <=2 /hpf 02/01/2025 12:15 PM EST [facility] Urine MID-STREAM URINE SPECIMEN / Unknown Collection / Unknown 02/01/2025 12:03 PM EST 02/01/2025 12:05 PM EST [employer] DO URINE ORDERABLES Final Result Performing Organization Address [facility] [place] [address] * Lactic Acid (02/01/2025 5:25 AM EST) Lactic Acid, Venous, Peripheral 0.5 0.5 - 2.0 mmol/L 02/01/2025 5:51 AM EST [facility] [employer] Blood Venipuncture / Unknown 02/01/2025 5:25 AM EST 02/01/2025 5:27 AM EST [facility] BLOOD ORDERABLES Final Res ult Performing Organization Address [facility] de Phone Number [facility] [address] * (ABNORMAL) Phosphorus (02/01/2025 5:25 AM EST) Only the most recent of3 resultswithin the time period is included. Phosphorus 1.7(L) 2.3 - 4.6 mg/dL 02/01/2025 6:02 AM EST [facility] Blood PERIPHERAL BLOOD SPECIMEN / Unknown Venipuncture / Unknown 02/01/2025 5:25 AM EST 02/01/2025 5:27 AM EST [facility] BLOOD ORDERABLES Final Res ult Performing Organization Address [facility] Co de Phone Number [facility] [address] * (ABNORMAL) Hepatic Function Panel (02/01/2025 5:25 AM EST) Only the most recent of4 resultswithin the time period is included. [facility] Total Protein 6.7 6.2 - 8.2 g/dL 02/01/2025 6:02 AM [facility] Albumin, Blood 3.7 3.4 - 5.2 g/dL 02/01/2025 6:02 AM [facility] Globulin Result 3.0 2.0 - 4.0 g/dL 02/01/2025 6:02 AM [facility] Total Bilirubin 0.3 0.2 - 1.2 mg/dL 02/01/2025 6:02 AM [facility] Direct Bilirubin 0.1 0.1 - 0.5 mg/dL 02/01/2025 6:02 AM [facility] Alkaline Phosphatase 245(H) 30 - 115 U/L 02/01/2025 6:02 AM [facility] AST (SGOT) 11 11 - 40 U/L 02/01/2025 6:02 AM [facility] ALT (SGPT) 13 7 - 40 U/L 02/01/2025 6:02 AM [facility] Blood PERIPHERAL BLOOD SPECIMEN / Unknown Venipuncture / Unknown 02/01/2025 5:25 AM EST 02/01/2025 5:27 AM EST us Tessera Strand DO LAB BLOOD ORDERABLES Final Res ult [address] [address] * Coronavirus SARS-CoV-2 and Influenza A/B (02/01/2025 2:47 AM EST) Only the most recent of2 resultswithin the time period is included. [facility] Coronavirus SARS-CoV-2 Not Detected Not Detected ORLIN JONA 02/01/2025 3:27 AM EST [facility] Influenza A Not Detected Not Detected ORLIN JONA 02/01/2025 3:27 AM [facility] Comment: A negative test does not rule out infection with an influenza virus. Influenza B Not Detected Not Detected ORLIN JONA 02/01/2025 3:27 AM EST [facility] Comment:A negative test does not rule out infection with an influenza virus. xNasopharyngeal NASOPHARYNGEAL SWAB / Unknown Collection / Unknown 02/01/2025 2:47 AM EST 02/01/2025 3:03 AM EST Narrative [facility] - 02/01/2025 3:27 AM EST Test performed using the Eliezer orlin JONA CoV-2 & Influenza RT-PCR assay, which has received emergency use authorization (EUA) by the U.S. Food and Drug Administration. Test performance has been verified by the [facility]. A Negative test result means [...] patient management decisions. Fact sheet for providers: https://www.fda.gov/media/839881/download Fact sheet for patients: https://www.fda.gov/media/709981/download Method: Real time polymerase chain reaction Tessera Strand DO BODY FLUIDS AND STOOLS ORDERAB LES Final Result [address] [address] * Nasal MRSA/SA By PCR (02/01/2025 2:47 AM EST) Pathologist [facility] MRSA PCR Negative Negative 02/01/2025 12:00 PM EST [facility] S. aureus PCR Negative Negative 02/01/2025 12:00 PM EST [facility] Swab BOTH ANTERIOR NARES / Unknown 02/01/2025 2:47 AM EST 02/01/2025 3:03 AM EST Joselito Soni DO MICROBIOLOGY - GENERAL ORDERAB LES Final Result [facility] [address] [facility] [place] [address], [place] [phone] * (ABNORMAL) Venous Blood Gas (02/01/2025 12:25 AM EST) Only the most recent of4 resultswithin the time period is included. FLOW RATE 45.0 02/01/2025 12:40 AM EST [...] Venous 24 18 - 32 mmol/L 02/02/20 12:40 AM EST [facility] % [...] 12:25 AM EST 02/01/2025 12:38 AM EST Jacinto Zurita PA LAB BLOOD ORDERABLES Final Resu lt [facility] [address] [place] [address] [phone] * XR Chest 1 Vw Portable (01/31/2025 7:36 PM EST) Only the most recent of2 resultswithin the time period is included. Anatomical Region Laterality Modality Chest Digital Radiogra [...] appear normal for age. Resulting Agency Comment [id number] Procedure Note Lena Gonzalez MD - 01/31/2025 [...] infiltrate. Probable small bilateral pleural effusions. Jacinto BENDER DIAGNOSTIC IMAGING ORDERABL ES Final Result * CT Head WO Contrast (01/31/2025 6:55 PM EST) Only the most recent of3 resultswithin the time period is included. Anatomical Region Laterality Modality Head Computed Tomogra [...] significant soft tissue swelling. Resulting Agency Comment [id number] Procedure Note Lena Gonzalez MD - 01/31/2025 [...] [facility] IMG CT ORDERABLES Final Result * POCT Glucose (01/31/2025 5:12 PM EST) Only the most recent of5 resultswithin the time period is included. Pathologist [facility] Glucose, POC 101 70 - 118 mg/dL 01/31/2025 5:20 PM EST [facility] Blood 01/31/2025 5:12 PM EST 01/31/2025 5:20 PM EST Provider Not In System POCT ORDERABLES - DEVICE Final Result Performing Organization Address [facility] de Phone Number [facility] [address] * (ABNORMAL) Procalcitonin (01/31/2025 5:06 PM EST) [facility] Procalcitonin 1.40(H) <0.15 ng/mL 01/31/2025 8:33 PM EST [facility] Comment: Interpretation of PCT levels between 0.5 ng/mL and 2.0 ng/mL requires clinical correlation to evaluate for infectious or non-infectious conditions known to induce changes in PCT levels Blood PERIPHERAL BLOOD SPECIMEN / Unknown Venipuncture / Unknown 01/31/2025 5:06 PM EST 01/31/2025 5:08 PM EST Jacinto [facility] LAB BLOOD ORDERABLES Final Resu lt Performing Organization Address [facility] Co de Phone Number [facility] [address] * CK (Creatine Kinase) (01/31/2025 5:06 PM EST) [facility] Creatine Kinase Total (CK) 44 30 - 194 U/L 01/31/2025 6:52 PM EST [facility] Blood PERIPHERAL BLOOD SPECIMEN / Unknown Venipuncture / Unknown 01/31/2025 5:06 PM EST 01/31/2025 5:08 PM EST us Jacinto [facility] LAB BLOOD ORDERABLES Final Resu lt [facility] [address] [place] [address] * (ABNORMAL) Comprehensive Metabolic Panel (01/31/2025 5:06 PM EST) Only the most recent of5 resultswithin the time period is included. Sodium 141 135 - 146 mmol/L 01/31/2025 5:35 PM [facility] Potassium 5.7(H) 3.4 - 5.2 mmol/L 01/31/2025 5:35 PM [facility] Chloride 103 98 - 110 mmol/L 01/31/2025 5:35 PM [facility] Total CO2/Bicarbonate 22(L) 24 - 32 mmol/L 01/31/2025 5:35 PM [facility] Anion Gap 16(H) 2 - 15 mmol/L 01/31/2025 5:35 PM [facility] BUN 59(H) 7 - 24 mg/dL 01/31/2025 5:35 PM [facility] Creatinine, Blood 9.30(H) 0.60 - 1.30 mg/dL 01/31/2025 5:35 PM [facility] Glucose, Blood 102(H) 50 - 100 mg/dL 01/31/2025 5:35 PM [facility] Calcium 9.3 8.5 - 10.5 mg/dL 01/31/2025 5:35 PM [facility] Total Protein 7.4 6.2 - 8.2 g/dL 01/31/2025 5:35 PM [facility] Albumin, Blood 4.0 3.4 - 5.2 g/dL 01/31/2025 5:35 PM [facility] Globulin Result 3.4 2.0 - 4.0 g/dL 01/31/2025 5:35 PM [facility] AST (SGOT) 19 11 - 40 U/L 01/31/2025 5:35 PM [facility] Comment:Specimen hemolyzed; result may be invalid. Interpret with caution. ALT (SGPT) 16 7 - 40 U/L 01/31/2025 5:35 PM EST [facility] Alkaline Phosphatase 267(H) 30 - 115 U/L 01/31/2025 5:35 PM EST [facility] Total Bilirubin 0.3 0.2 - 1.2 mg/dL 01/31/2025 5:35 PM EST [facility] Estimated GFR (MDRD) 6(L) >=60 mL/min/BSA 01/31/2025 5:35 PM EST [facility] Blood PERIPHERAL BLOOD SPECIMEN / Unknown Venipuncture / Unknown 01/31/2025 5:06 PM EST 01/31/2025 5:08 PM EST Wilfredo Taveras DO LAB BLOOD ORDERABLES Fi nal Result DEL [address] [address] * Hemodialysis inpatient (01/29/2025 4:10 AM EST) Narrative Pinky Nichols RN - 01/29/2025 4:10 AM EST Pinky Nichols RN 01/29/2025 4:10 AM Hemodialysis Nursing Procedure Note Patient: Sushant Christianson : 1960 CSN: [id number] Treatment Summary: Pt oriented x3. HD tx [...] MD DIALYSIS ORDERABLES Final Resul t * Hemodialysis inpatient (01/27/2025 11:23 PM EST) Narrative Pinky Nichols RN - 01/27/2025 11:23 PM EST Pinky Nichols RN 01/27/2025 11:23 PM Hemodialysis Nursing Procedure Note Patient: Sushant Christianson : 1960 CSN: [id number] Treatment Summary: Pt. A&O x3. Last HD [...] Stanton MD DIALYSIS ORDERABLES Final Result * XR Knee 4+ Vw Left (Trauma) [...] joint spaces appear normal. Resulting Agency Comment [id number] Procedure Note Kt Fuentes MD - 01/27/2025 [...] Soft tissue swelling. No acute fracture identified. Antonio Gilmore MD IMG DIAGNOSTIC IMAGING ORDERABL ES Final Result * Covid/Flu/RSV (Rapid) (01/27/2025 2:10 PM EST) Coronavirus SARS-CoV-2 Not Detected Not Detected 01/27/2025 2:59 PM EST [facility] Influenza A Not Detected Not Detected 01/27/2025 2:59 PM EST [facility] Comment:A negative test does not rule out infection with an influenza virus. Influenza B Not Detected Not Detected 01/27/2025 2:59 PM EST [facility] Comment:A negative test does not rule out infection with an influenza virus. RSV by PCR Not Detected Not Detected 01/27/2025 2:59 PM EST [facility] Comment:A negative test does not rule out infection with RSV. Respiratory SWAB OF INTERNAL NOSE / Unknown Collection / Unknown 01/27/2025 2:10 PM EST 01/27/2025 2:10 PM EST Narrative [facility] - 01/27/2025 2:59 PM EST Test performed using the [employer] GeneXpert CoV-2/Flu/RSV plus (RT-PCR) assay, which has received emergency use authorization (EUA) by the U.S. Food and Drug Administration. Test performance has been verified by the [facility]. A Negative test result means [...] patient management decisions. Fact sheet for providers: https://www.fda.gov/media/908230/download Fact sheet for patients: https://www.fda.gov/media/999310/download Method: Real time polymerase chain reaction, multianalyte Antonio Gilmore MD BODY FLUIDS AND STOOLS ORDERABL ES Final Result Performing Organization Address [facility] [place] [address] * APTT (01/27/2025 2:07 PM EST) PTT 33 22 - 36 s 01/27/2025 2:36 PM EST [facility] Comment:Unfractionated Hepar in Therapeutic Range: 70-110 seconds. Blood PERIPHERAL BLOOD SPECIMEN / Unknown Venipuncture / Unknown 01/27/2025 2:07 PM EST 01/27/2025 2:07 PM EST Antonio Gilmore MD LAB BLOOD ORDERABLES Final Resu lt Performing Organization Address [facility] [place] [address] * (ABNORMAL) PT-INR (01/27/2025 2:07 PM EST) [...] a need for a higher intensity therapy. us Antonio Gilmore MD LAB BLOOD ORDERABLES Final Resu lt [facility] [address] [place] [address] * CT Chest Abdomen Pelvis Trauma With [...] chronic. There is gynecomastia. Resulting Agency Comment [id number] Procedure Note tK Fuentes MD - 01/27/2025 EXAM DESCRIPTION: CT [...] reflect colitis. 5. Other findings as above. Antonio Gilmore MD [facility] ORDERABLES Final Result * CT Cervical Spine WO IV Contrast (01/27/2025 1:55 PM EST) Only the most recent of2 resultswithin the time period is included. Anatomical Region Laterality Modality Cervical Spine Computed [...] levels. Partially visualized right-sided central venous catheter. Antonio Gilmore MD IM CT ORDERABLES Final Result [...] levels. Partially visualized right-sided central venous catheter. Antonio Gilmore MD [facility] ORDERABLES Final Result * (ABNORMAL) Toxicology Screen, Blood (01/27/2025 12:40 PM EST) Acetaminophen Result,Blood 7(L) 10 - 30 ug/mL 01/27/2025 1:40 PM EST [facility] Alcohol <10 <10 mg/dL 01/27/2025 1:40 PM EST [facility] Salicylate Level, Blood <1 <30 mg/dL 01/27/2025 1:40 PM EST [facility] Blood PERIPHERAL BLOOD SPECIMEN / Unknown Venipuncture / Unknown 01/27/2025 12:40 PM EST 01/27/2025 12:42 PM EST Antonio Gilmore MD LAB BLOOD ORDERABLES Final Resu lt Performing Organization Address [facility] Co de Phone Number [place] [phone] * Blue Top (01/27/2025 12:40 PM EST) Blue Top Tube Received 01/27/2025 2:47 PM EST [facility] Blood PERIPHERAL BLOOD SPECIMEN / Unknown Venipuncture / Unknown 01/27/2025 12:40 PM EST 01/27/2025 2:42 PM EST Antonio Gilmore MD LAB BLOOD ORDERABLES Final Resu lt Performing Organization Address [facility] de Phone Number [place] [phone] * Hepatitis B Surface Antigen (01/27/2025 12:40 PM EST) Only the most recent of2 resultswithin the time period is included. Pathologist [facility] Hep B Aylin Ag Negative Negative 01/27/2025 2:37 PM EST [facility] Blood PERIPHERAL BLOOD SPECIMEN / Unknown Venipuncture / Unknown 01/27/2025 12:40 PM EST 01/27/2025 12:42 PM EST Annette Stanton MD LAB BLOOD ORDERABLES Final Resul t Performing Organization Address [facility] de Phone Number [address] [address] * Lactic Acid, Reflexed (12/26/2024 8:00 PM EDT) Lactic Acid, Venous, Peripheral 1.0 0.5 - 2.0 mmol/L 12/26/2024 8:35 PM EDT [facility] Blood Venipuncture / Unknown 12/26/2024 8:00 PM EDT 12/26/2024 8:04 PM EDT us Ralph JOHNSTON LAB BLOOD ORDERABLES Final Res ult Performing Organization Address [facility] de Phone Number [facility] [address] [place] [address] * (ABNORMAL) Lactic Acid with 3 Hour Reflex (12/26/2024 5:11 PM EDT) Lactic Acid, Venous, Peripheral 3.1(H) 0.5 - 2.0 mmol/L 12/26/2024 5:43 PM EDT [facility] Blood PERIPHERAL BLOOD SPECIMEN / Unknown Venipuncture / Unknown 12/26/2024 5:11 PM EDT 12/26/2024 5:11 PM EDT Ralph JOHNSTON LAB BLOOD ORDERABLES Final Res ult Performing Organization Address [facility] de Phone Number [facility] [address] [place] [address] * Blood Bank Hold Tube (12/26/2024 5:01 PM EDT) [place] Top Tube Received 12/26/2024 5:22 PM EDT [facility] Blood Venipuncture / Unknown 12/26/2024 5:01 PM EDT 12/26/2024 5:05 PM EDT Suzanna Stevens MD BLOOD BANK TEST ORDERABLES Fi nal Result Performing Organization Address [facility] de Phone Number [address] [address] * TSH (12/26/2024 5:01 PM EDT) TSH 1.43 0.30 - 4.50 uIU/mL 12/26/2024 5:44 PM EDT [facility] Blood PERIPHERAL BLOOD SPECIMEN / Unknown Venipuncture / Unknown 12/26/2024 5:01 PM EDT 12/26/2024 5:05 PM EDT Ralph JOHNSTON LAB BLOOD ORDERABLES Final Res ult Performing Organization Address [facility] Co de Phone Number [facility] [address] [place] [address] * Potassium (12/23/2024 5:21 PM EDT) Potassium 4.8 3.4 - 5.2 mmol/L 12/23/2024 5:59 PM EDT [facility] Blood PERIPHERAL BLOOD SPECIMEN / Unknown Venipuncture / Unknown 12/23/2024 5:21 PM EDT 12/23/2024 5:24 PM EDT [facility] LAB BLOOD ORDERABLES Final Res ult Performing Organization Address [facility] de Phone Number [facility] [address] [place] [address] * (ABNORMAL) Hs-Troponin (with reflex 0, 3 hours) (12/23/2024 3:54 PM EDT) Troponin T HS 83(H) <52 ng/L 12/23/2024 4:44 PM EDT [facility] Comment:Sample severely hemo lyzed. Result may be artificially decreased. Blood PERIPHERAL BLOOD SPECIMEN / Unknown Venipuncture / Unknown 12/23/2024 3:54 PM EDT 12/23/2024 3:58 PM EDT [facility] LAB BLOOD ORDERABLES Final Res ult Performing Organization Address [facility] de Phone Number [facility] [address] [place] [address] * XR Abdomen AP (12/04/2024 9:53 AM EDT) Anatomical Region Laterality Modality Abdomen Digital Radiogra phy Impressions 12/04/2024 11:39 AM EDT No intra-abdominal foreign body recognized. Narrative 12/04/2024 11:39 AM EDT EXAM DESCRIPTION: XR ABDOMEN 1 VW CLINICAL HISTORY: Foreign body ingestion. COMPARISON: No comparison plain radiographs. CT from 12/20/2022 used for correlation. TECHNIQUE: AP supine images of the abdomen/pelvis. FINDINGS: Bowel pattern is nonspecific. There is mild increased air in nondilated small and large bowel loops. No dilated bowel loops are demonstrated. No definite foreign bodies are recognized, though there are 1 or more rounded foci of increased density at the lateral periphery of the mid and lower left abdomen that suggest hyperdense material in diverticula, similar to before. No soft tissue calcifications of note are recognized. There are postoperative changes at the right hip. Resulting Agency Comment [email or web address] Procedure Note Wilfredo Alvarado MD - 12/04/2024 EXAM DESCRIPTION: XR ABDOMEN 1 VW CLINICAL HISTORY: Foreign body ingestion. COMPARISON: No comparison plain radiographs. CT from 12/20/2022 used for correlation. TECHNIQUE: AP supine images of the abdomen/pelvis. FINDINGS: Bowel pattern is nonspecific. There is mild increased air in nondilated small and large bowel loops. No dilated bowel loops are demonstrated. No definite foreign bodies are recognized, though there are 1 or more rounded foci of increased density at the lateral periphery of the mid and lower left abdomen that suggest hyperdense material in diverticula, similar to before. No soft tissue calcifications of note are recognized. There are postoperative changes at the right hip. IMPRESSION: No intra-abdominal foreign body recognized. us Tessera Zachariah DO IMG DIAGNOSTIC IMAGING ORDERAB LES Final Result * US ABDOMEN LIMITED (12/03/2024 3:22 PM EDT) Anatomical Region Laterality Modality Abdomen Ultrasound Addenda Addendum by Lena Gonzalez MD on 12/30/2024 11:37 AM EDT NH1 ADDENDUM: I have reviewed the images and agree with the report. RESULT CODE: NH1 Agree Impressions 12/03/2024 3:36 PM EDT No evidence of acute cholecystitis. Narrative 12/03/2024 3:36 PM EDT EXAM DESCRIPTION: US ABDOMEN LIMITED CLINICAL HISTORY: Diffuse jaundice, previous stones on ultrasound, and elevated alkaline phosphatase COMPARISON: No prior studies available for comparison. TECHNIQUE: Multiple real time images were obtained through the abdomen. FINDINGS: Liver: The liver is normal in size and echogenicity. No focal hepatic mass lesions are identified. Main portal vein is patent. Gallbladder: Mobile gallbladder stones. Gallbladder wall within normal limits. Bile ducts: The common hepatic duct measures 5 mm. The common bile duct measures 6mm. Pancreas: The pancreas appears normal in size without focal lesions. Right kidney: Right kidney measures 5.9 cm, atrophic cm. No hydronephrosis, stones or solid renal masses. IVC and aorta: Grossly unremarkable Peritoneal cavity: No ascites is identified. Resulting Agency Comment [id number] Procedure Note Rm Guajardo MD / Lena Gonzalez MD - 12/03/2024 EXAM DESCRIPTION: US ABDOMEN LIMITED CLINICAL HISTORY: Diffuse jaundice, previous stones on ultrasound, and elevated alkaline phosphatase COMPARISON: No prior studies available for comparison. TECHNIQUE: Multiple real time images were obtained through the abdomen. FINDINGS: Liver: The liver is normal in size and echogenicity. No focal hepatic mass lesions are identified. Main portal vein is patent. Gallbladder: Mobile gallbladder stones. Gallbladder wall within normal limits. Bile ducts: The common hepatic duct measures 5 mm. The common bile duct measures 6mm. Pancreas: The pancreas appears normal in size without focal lesions. Right kidney: Right kidney measures 5.9 cm, atrophic cm. No hydronephrosis, stones or solid renal masses. IVC and aorta: Grossly unremarkable Peritoneal cavity: No ascites is identified. IMPRESSION: No evidence of acute cholecystitis. Cyn Angeles MD IMG US ORDERABLES Edited Res ult - Final * Differential (12/03/2024 11:25 AM EDT) Morphology Normal RBC morphology,Va cuolated neutrophils, 12/03/2024 12:13 PM EDT [facility] Platelet Estimate Platelets Adequate 12/03/2024 12:13 PM EDT [facility] Blood PERIPHERAL BLOOD SPECIMEN / Unknown Venipuncture / Unknown 12/03/2024 11:25 AM EDT 12/03/2024 11:25 AM EDT us Cyn Angeles MD LAB BLOOD ORDERABLES Final R esult [facility] [address] [place] [address] * US Guided PIV (12/02/2024 3:09 PM EDT) Jacinto Bernardo PA - 12/02/2024 3:09 PM EDT PRESTON Velasquez 12/02/2024 7:23 PM Ultrasound Guided Peripheral IV Performed by: PRESTON Velasquez Authorized by: PRESTON Velasquez Ultrasound Guided Peripheral IV: Date/time: 12/02/2024 6:05 PM Ultrasound guided: Yes Indications: Nurse unable to obtain IV access Cleansing agent: Alcohol Needle gauge: 20 G Catheter length (cm): 2 Location: Left antecubital Attempts: 1 Findings: Needle or catheter visualized in vein Complications: None Dressing: Dressing applied and taped ED ultrasound performed and interpreted in real time by PRESTON Velasquez Jacinto JOHNSTON PROCEDURE/MINOR SURGICAL ORDERA BLES Final Result * (ABNORMAL) Lipid Panel (04/18/2024 8:05 AM EST) Cholesterol 135 125 - 200 mg/dL 04/18/2024 2:45 PM EST [facility] Triglycerides 161(H) 55 - 150 mg/dL 04/18/2024 2:45 PM EST [facility] Comment:Use non-HDL choleste rol or Apolipoprotein B to monitor cardiovascular risk and cholesterol-lowering therapy. HDL Cholesterol 45 40 - 65 mg/dL 04/18/2024 2:45 PM EST [facility] LDL Cholesterol 58 <130 mg/dL 04/18/2024 2:45 PM EST [facility] Non-HDL Cholesterol 90 <190 mg/dL 04/18/2024 2:45 PM EST [facility] Comment: Normal primary prevention <190 mg/dL High risk primary prevention <160 mg/dL Secondary prevention <130 mg/dL High risk secondary prevention <100 mg/dL VLDL Cholesterol 32 8 - 71 mg/dL 04/18/2024 2:45 PM EST [facility] Ratio Chol/HDL 3.0 2.0 - 5.0 04/18/2024 2:45 PM EST [facility] Blood PERIPHERAL BLOOD SPECIMEN / Unknown Venipuncture / Unknown 04/18/2024 8:05 AM EST 04/18/2024 8:23 AM EST Nydia England MD LAB BLOOD ORDERABLES Final Resul t Performing Organization Address [facility] Co de Phone Number [facility] [address] [place] [address] * (ABNORMAL) Hemoglobin A1C (08/03/2023 9:07 PM EDT) Hemoglobin A1C 5.7(H) 4.6 - 5.6 % 08/04/2023 6:16 AM EDT [facility] Estimated Average Glucose 117 mg/dL 08/04/2023 6:16 AM EDT [facility] Blood PERIPHERAL NERVOUS SYSTEM STRUCTURE / Unknown Venipuncture / Unknown 08/03/2023 9:07 PM EDT 08/03/2023 9:13 PM EDT us Lena Roche MD LAB BLOOD ORDERABLES Final Re sult Performing Organization Address [facility] Co de Phone Number [facility] [address] [place] [address] from Last 3 Months or Most Recently Relevant to Health Maintenance Insurance MEDICARE [facility]IC[facility] MEDICARE [phone] [place] [address] MEDICARE [facility] Advance Directives Documents on File Type Date Recorded Patient Picture Hanger Expl anation Health Care Proxy 12/09/2024 2:19 PM HCP s igned 12/05/2024 Health Care Proxy 12/28/2022 2:12 PM Healt h Care Proxy Health Care Proxy 11/07/2022 9:55 AM Health Care Proxy 11/07/2022 9:[address] d in chart, faxed to MR * Full Code (Latest Code Status on File) Date Activated Date Inactivated Comments 02/01/2025 2:22 AM 02/03/2025 11:19 AM Question Answer Comments Discussed with/per: Patient * Full Code Date Activated Date Inactivated Comments 01/27/2025 3:31 PM 01/31/2025 4:34 PM Question Answer Comments Discussed with/per: Patient * Full Code Date Activated Date Inactivated Comments 12/26/2024 7:44 PM 01/27/2025 12:16 PM Question Answer Comments Discussed with/per: Patient * Full Code Date Activated Date Inactivated Comments 12/23/2024 10:25 PM 12/26/2024 4:18 PM Question Answer Comments Discussed with/per: Patient * Full Code Date Activated Date Inactivated Comments 12/02/2024 8:17 PM 12/23/2024 12:54 PM Question Answer Comments Discussed with/per: Patient Healthcare Agents on File Name Relationship Healthcare Agent Relationship Communication Estela Simeon Life Partner/Signif [facility] Health Care Agent Care Teams Junior Account Executive Relationship Specialty Start Date End Date Akin Christianson NP [address] [facility] [address] [address] PCP - General Nurse Practitioner 02/03/25
--- OUTSIDE RECORDS SUMMARY | 2025-02-04 16:37 | XMS_ITS | Encounter Summary ---
Author Organization [facility] Address [address] [place] [address] Care Team Providers Care Fuel Cell Assembler Name Role Phone Ochin, Provider Primary Care Provider Unavailabl e Encounter Details Date Type Department Care Team (Late st Contact Info) Description 04/28/2024 Case Management Visit [facility] [address] [facility] SECOND FLOOR [address] [phone] Marquis [address] [facility] [place] [address] Social History Tobacco Use Types Packs/Day Years [...] Food Insecurity Answer Date Recorded Food 2 04/09/2024 Transportation Needs Answer Date Record ed Transportation 2 04/09/2024 Housing Stability Answer Date Recorded Housing 2 07/04/2023 Safety and Environment Answer Date Nitin rded Safety 0 11/12/2018 Utilities Answer Date Recorded Utilities 2 04/04/2024 Employment Answer Date Recorded Stress 2 07/04/2023 [...] Assessment Noted Time PHQ-9 Depression Total Score: 3 03/12/20 24 3:00 PM PST PHQ-2 Depression Total Score: 1 03/12/20 24 3:00 PM PST documented as of this encounter Care Teams Fuel Cell Assembler Relationship Specialty [place] [address] PCP - General 12/22/24 Les Mays [facility] Addiction Health Fuel Cell Assembler 02/25/18 [facility] 03/01/22 documented as of this encounter
--- OUTSIDE RECORDS SUMMARY | 2025-02-04 16:37 | XMS_ITS | Encounter Summary ---
Author Organization [facility] Address [address] [place] [address] Care Team Providers Care Ob Scrub Tech Name Role Phone Ochin, Provider Primary Care Provider Unavailabl e Encounter Details Date Type Department Care Team (Late st Contact Info) Description 04/12/2023 Case Management Visit [facility] [address] [facility] SECOND FLOOR [place] [phone] Marquis [address] [facility] [place] [address] Social History Tobacco Use Types Packs/Day Years [...] encounter Progress Notes * Marquis Burnett - 04/12/2023 10:28 AM EST CM Updates: Re-applied for [place] SNAP benefits 04/12/2023. Renewal has been since 12/2022. Gave patient new [employer] listings for room/studio/1 bedroom for rent. Budget is $1500 and below. Patient received application for rooming house in [place]. Must complete and send in with an ID. manager inventory management at rooming house in [place] ([address] [place] [address]) contacted patient about openings/viewing. Has viewing scheduled for 04/13/2023 between 4PM-6PM. SSDI benefit amount increased, now receives $2,523 per month from SSDI and Pension. Other Updates: Patient stated elevated mood, gratitude for being back at [facility] Patient has outing scheduled on 04/12/2023 at 11AM to get breakfast with Father. Patient seeks to have breakfast/ lunch with father once a week. documented in this encounter Plan of [...] documented as of this encounter Care Teams Ob Scrub Tech Relationship Specialty [place] [address] PCP - General 12/22/24 [facility] Ob Scrub Tech 02/25/18 [facility] 03/01/22 documented as of this encounter
--- OUTSIDE RECORDS SUMMARY | 2025-02-04 16:37 | XMS_ITS | Encounter Summary ---
Author Organization [facility] Address [address] [place] [address] Care Team Providers Care Dry Wall Nailer Name Role Phone Ochin, Provider Primary Care Provider Unavailabl e Encounter Details Date Type Department Care Team (Late st Contact Info) Description 05/14/2024 Case Management Visit [facility] [address] [facility] SECOND FLOOR [place] [phone] Marquis Lex [address] [facility] [place] [address] Social History Tobacco Use Types Packs/Day Years [...] documented as of this encounter Care Teams Dry Wall Nailer Relationship Specialty Start [place] [address] PCP - General 12/22/24 Les Mays [facility] Addiction Health Dry Wall Nailer 02/25/18 [facility] 03/01/22 documented as of this encounter
--- OUTSIDE RECORDS SUMMARY | 2025-02-04 16:37 | XMS_ITS | Encounter Summary ---
Author Organization [facility] Address [address] [place] [address] Care Team Providers Care Monorail Helper Name Role Phone Ochin, Provider Primary Care Provider Unavailabl e Encounter Details Date Type Department Care Team (Late st Contact Info) Description 05/19/2024 Case Management Visit [facility] [address] [facility] SECOND FLOOR [place] [phone] Marquis Lex [address] [place] [address] Social History Tobacco Use Types Packs/Day Years [...] 2 07/04/2023 Safety and Environment Answer Date Intin rded Safety 0 11/12/2018 Utilities Answer Date [...] documented as of this encounter Care Teams Monorail Helper Relationship Specialty Start [place] [address] PCP - General 12/22/24 Les Mays [facility] Addiction Health Monorail Helper 02/25/18 [facility] 03/01/22 documented as of this encounter
--- OUTSIDE RECORDS SUMMARY | 2025-02-04 16:38 | XMS_ITS | Encounter Summary ---
Author Organization [facility] Address [address] [place], [place] [id number] Care Team Providers Care Helmet Hat Brim Cutter Name Role Phone Unknown, Provider Primary Care Provider [place] Encounter Details Date Type Department Care Team (Latest Contact Info) Description 01/31/2025 Travel Social History Tobacco Use Types Packs/Day Years [...] and Family Not on file 03/10/2024 Attends [employer] Services Not on file 03/10 Active Member [...] housing, medical care, and heating? Hard 02/01/2025 [facility] Occup[facility] ional Health - Occupational Stress [...] any time in the past 12 m [facility], were you homeless or living in a longterm (including now)? Yes 02/01/2025 B1300 Health Literacy Answer Date Recor ded How often do you need to hav e someone help you when you read instructions, pamphlets, or other written material from your doctor or pharmacy? Sometimes 01/28/2025 [facility] Utilities Answer Date Recorded In [...] on file documented as of this encounter Functional Status * Are you deaf or do you have serious difficulty hearing? Answer Date of Assessment Author No 01/31/2025 4:50 PM EST Sandy Balderas * Are you blind or do you have serious difficulty seeing, even when wearing glasses? Answer Date of Assessment Author No 01/31/2025 4:50 PM EST Sherrie, Mi axel Debra * Do you have serious difficulty walking or climbing stairs? Answer Date of Assessment Author Yes 01/31/2025 4:50 PM EST Straw, Mi axel Debra * Do you have difficulty dressing or bathing? Answer Date of Assessment Author No 01/31/2025 4:50 PM EST Sherrie, Mi axel Debra * Because of a physical, mental, or emotional condition, do you have difficulty doing errands alone such as visiting the doctor? Answer Date of Assessment Author No 01/31/2025 4:50 PM EST Sherrie, Mi axel Debra documented as of this encounter Mental Status * Because of a physical, mental, or emotional condition, do you have serious difficulty concentrating, remembering, or making decisions? Answer Entry Date Author No 01/31/2025 4:50 PM EST Sherrie Mi axel Venegasine documented in this encounter Plan of Treatment Not on file documented as of this encounter Visit Diagnoses Not on filedocumented in this encounter Care Teams Helmet Hat Brim Cutter Relationship Specialty Start Date End Date Unknown, Provider, [address] [place] [id number] PCP - General 01/31/25 02/02/25 documented as of this encounter
--- OUTSIDE RECORDS SUMMARY | 2025-02-04 16:38 | XMS_ITS | Encounter Summary ---
Author Organization [facility] Address [address] [place] [address] Care Team Providers Care Principal Systems Architect Name Role Phone Ochin, Provider Primary Care Provider Unavailabl e Encounter Details Date Type Department Care Team (Late st Contact Info) Description 11/03/2021 Case Management Visit [facility] [address] [facility] SEC[address]LOOR [place] [phone] [address] [place] [address] Social History Tobacco Use Types Packs/Day Years [...] on file Sexual Orientation Not on file COVID-19 Exposure Response Date Recorded In the last 10 days, have yo u been in contact with someone who was confirmed or suspected to have Coronavirus/COVID-19? No / Unsure 10/27/2021 10:03 AM EDT documented as of this encounter Progress Notes * Marquis Burnett - 11/03/2021 10:42 AM EDT NAME: Sushant Christianson : 1960 PCP: Avery Davila DNP Reason for Admission: Upcoming Appointments: 11/10/21 [facility] [place] 11/11/21 [facility]( [facility]) HOUSING Housing Goal: Finding affordable housing. Income is too high for most subsidized units. Sushant and Laura are in the process of the recovery of his core documents, he Is said to have them at hisfathers residence. Sushant and I are looking at rooms, and apartments for rent at [facility], no more than $1200-$1500 per month. Interim Options: Sober Living? CORE DOCUMENTS ID - Has MA ID @[facility] Social Security Card - Has Copy @[facility] Certificate - Has certified copy at his fathers residence, will coordinate a time for him to pick it up this week. Income - $2003/month via SSI Recent Statement - $2173 before deductions Bank Statements/[employer] - Does not have bank statements as he is not in control of his funds. Transportation - has DISCHARGE DATE: TBD documented in this encounter Plan of Treatment [...] AM PDT PHQ-2 Depression Total Score: 0 08/10/20 22 9:00 AM PDT documented as of this encounter Care Teams Principal Systems Architect Relationship Specialty [place] [address] PCP - General 12/22/24 Les M[facility] Addiction Health Principal Systems Architect 02/25/18 [facility] 03/01/22 documented as of this encounter
--- OUTSIDE RECORDS SUMMARY | 2025-02-04 16:38 | XMS_ITS | Encounter Summary ---
Author Organization [facility] Address [address] [place] [address] Care Team Providers Care Territory Manager Name Role Phone Ochin, Provider Primary Care Provider Unavailabl e Encounter Details Date Type Department Care Team (Late st Contact Info) Description 10/27/2021 Case Management Visit [facility] [address] [facility] SECOND FLOOR [place] [phone] [address] [facility] [place] [address] Social History Tobacco Use Types Packs/Day Years [...] Food Insecurity Answer Date Recorded Food 1 05/27/2021 Transportation Needs Answer Date Record ed Transportation 2 05/27/2021 Housing Stability Answer Date Recorded Housing 2 05/27/2021 Safety and Environment Answer Date Nitin rded Safety 0 11/12/2018 Utilities Answer Date Recorded Utilities 2 05/27/2021 Employment Answer Date Recorded Employment 2 05/27/2021 Sex and Gender Information Value Date Recorded [...] encounter Progress Notes * Marquis Burnett - 10/27/2021 10:48 AM EDT NAME: Sushant Christianson : 1960 PCP: Avery Davila DNP Reason for Admission: Upcoming Appointments: 11/11/21 2nd Opinion( Kidneys) HOUSING Housing Goal: Finding affordable housing. Income is too high for most subsidized units. Sushant and I are in the process of the recovery of his core documents, he Is said to have them at hisfathers residence. Interim Options: Sober Living? CORE DOCUMENTS ID - Has Social Security Card - Has Certificate - Has Income - $2003/month via SSI Recent Statement - $2173 before deductions Bank Statements/[employer] - Transportation - has DISCHARGE DATE: TBD documented [...] AM PDT PHQ-2 Depression Total Score: 0 07/12/19 22 6:00 PM PDT documented as of this encounter Care Teams Territory Manager Relationship Specialty Start [place] [address] PCP - General 12/22/24 [facility] Addiction Health Territory Manager 02/25/18 [facility] 03/01/22 documented as of this encounter
--- OUTSIDE RECORDS SUMMARY | 2025-02-04 16:38 | XMS_ITS ---
Author Organization [facility] Address [address] [place] [address] Care Team Providers Care Oil Change Technician Name Role Phone Akin Christianson NP Primary Care Provider [phone] Dialysis Plan of Treatment Dialysis Prescription As-Of Date Prescribed Dry Weight Primary Se tting 02/01/2025 Acute Dialysis S CA Instructions Modality Prescribed Duration (hours) Frequency Blood Flow Rate Conventional Hemodialysis 35 0 mL/min Dialysis Access Type Location Hemodialysis Catheter/Pheresis Right Sub clavian Right Breast - Upper Dialysate Sodium Level Potassium Level Calcium Level Bicarbonate Level 140 mEq/L 2 mEq/L 2.5 mEq/L 35 mEq/L from Last 30 Days Dialysis Access Sites Type Status Location Placement Date Removal Da te Hemodialysis Fistula Right;Upper Arm Active Right Upper Arm - Anterior 12/04/2024 Hemodialysis Catheter/Pheresis Right Subclavian Active Right Breast - Upper 08/06/2023 Hemodialysis Catheter/Pheresis Permanent Tunneled Right Subclavian Inactive Right Breast - Upper 10/11/2022 08/06/2023 Procedures Procedure Name Priority Date/Time Associated Diagnosis [...] or Most Recently Relevant to Health Maintenance Allergies No known active allergies Medications * [...] mouth daily for 30 days. 30 tablet 5 Active OLANZapine (ZyPREXA) 10 MG tablet Take 1 tablet (10 mg total) by mouth every morning & every evening. 20 tablet 5 Active pantoprazole (PROTONIX) [address] tablet [...] times a day with meals. 30 tablet 5 Active lamoTRIgine (LaMICtal) 25 MG tablet Take [...] (12.5 mg total) before bedtime. 30 tablet 5 Active Additional Information Patient not taking.Reported on 02/03/2025 gabapentin (NEURONTIN) 100 MG capsule Take 1 capsule (100 mg total) by mouth at bedtime. 30 capsule Active naltrexone (DEPADE) 50 mg tablet Take 1 tablet (50 mg total) by mouth in the morning. 30 tablet 5 01/06/20 25 Additional Information Patient not taking.Reported on 12/26/2024 calcium gluc in NaCl, iso-osm (calcium gluconate in NaCl, iso-osm) 1 gram/50 mL IVPB Infuse 50 mL (1 g total) into a venous catheter once for 1 dose. 50 mL 01/28/20 Active Problems Problem Noted Date Diagnosed [...] 47ml -Restart Tamsulosin 0.4mg daily Kidney lesion, chitimacha, left 01/08/2018 Overview (10/10/2022): Last Assessment & [...] will be evicted 10/29/15. Is familiar with nursing home system and states will not influence care. Last Assessment & Plan: [facility]itentiary bed secured at [facility] Pt will f/u with [facility] case management social worker 10/30 Alcohol use disorder, severe, in early remission 10/31/2015 Overview (12/26/2022): Prevention plan formulated at 08/08/22 visit with addictions fellow: - Call sponsor --> pt needs to establish with a new AA sponsor - Call girlfriend or dad - Listen to music on phone, play [employer] - Go for a walk - Take [...] of alcohol withdrawal. 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 He was not interested in other outpatient treatment program referral per SW. He was seen by PT who also recommends discharge home. He was advised to abstain from alcohol use. Patient reports he recently lost his apartment and will be working with for discharge disposition planning. 09/28/19 ED for acute alcohol intoxication 09/16/19 Hospitalized for detox 09/16/19 [facility] /07/26/2018: Vivitrol given T/C from [facility]. Admitted 01-04-16 Alcohol withdrawal, hypertension w/ tachycardia , low magnesium gastritis secondary to alcohol .Pt Rx Ativan protocol with good results. Discharging needs PCP F/U, scheduled. Pelon Mcgrath RN 10/31/2015 - Significantly elevated. Diastolic. Referred to . Last Assessment & Plan: Struggling recently relapsed Does not wish to restart LUIS Will continue discussion re detox/CCS Immunizations Immunization Administration Dates Next Due COVID-19 [...] SDV (FLUZONE/FLUARIX/FLULAVAL/AFLURIA) 12/06/2022,01/07/2021,01/05/2016 Pneumococcal polysaccharide vaccine 23-valent (PPSV23/[id number]) 12/14/2017,11/13/2015,10/26/2015,04/17 Tdap Vaccine (BOOSTRIX/ADACEL) 09/20/2016,2015 Social History Tobacco Use Types Packs/Day Years [...] and Family Not on file 03/10/2024 Attends [employer] Not on file 03/10 Active Member [...] housing, medical care, and heating? Hard 02/01/2025 [facility] [place] [facility] Occupat ional [facility] - Occupational Stress [...] any time in the past 12 [facility], were you homeless or living in a nursing home (including now)? Yes 02/01/2025 [id number] Health Literacy Answer Date Recor ded How often do you need to hav e someone help you when you read instructions, pamphlets, or other written material from your doctor or pharmacy? Sometimes 01/28/2025 [facility] Utilities Answer Date Recorded In [...] Mass Index 25.11 01/31/2025 5:46 PM EST Functional Status * Are you deaf or do you have serious difficulty hearing? Answer Date of Assessment Author No 02/03/2025 11:22 AM EST Staples, Ya jayra * Are you blind or do you have serious difficulty seeing, even when wearing glasses? Answer Date of Assessment Author No 02/03/2025 11:22 AM EST Tasha Staples * Do you have serious difficulty walking or climbing stairs? Answer Date of Assessment Author No 02/03/2025 11:22 AM EST Tasha Staples * Do you have difficulty dressing or bathing? Answer Date of Assessment Author No 02/03/2025 11:22 AM Tasha Davis * Because of a physical, mental, or emotional condition, do you have difficulty doing errands alone such as visiting the doctor? Answer Date of Assessment Author No 02/03/2025 11:22 AM Tasha Davis Mental Status * Because of a physical, mental, or emotional condition, do you have serious difficulty concentrating, remembering, or making decisions? Answer Entry Date Author No 02/03/2025 11:22 AM Tasha Davis Results * (ABNORMAL) Drug Screen, Urine (02/04/2025 3:54 AM EST) Only the most recent of3 resultswithin the time period is included. 6-Aceytlmorphine Screen, Urine Negative Negative 02/04/2025 4:20 AM [facility] Comment:Add on order [id number] Opiates and Oxycodone, Urine, Confirmation, if confirmation desired. Amphetamines Screen, Urine Negative Negative 02/04/2025 4:20 AM [facility] Comment: Screen for Amphetamine, Metamphetamine or other Amphetamine-like compounds. Add-on order [id number] Amphetamine, Urine, Confirmation if confirmation desired. Barbiturates Screen, Urine Negative Negative 02/04/2025 4:20 AM [facility] Comment:Add-on order [id number] Barbiturate, Urine, Confirmation if confirmation desired. Benzodiazepine Screen, Urine Negative Negative 02/04/2025 4:20 AM EST [facility] Comment: Add-on order [id number] Benzodiazepine, Urine, Confirmation if confirmation desired. Buprenorphine Screen, Urine Negative Negative 02/04/2025 4:20 AM EST [facility] Comment:Add-on order [id number] Buprenorphine, Urine, Confirmation if confirmation desired. Cannabinoids Screen, Urine Negative Negative 02/04/2025 4:20 AM [facility] Comment:Add-on order [id number] Cannabinoids, Urine, if confirmation desired. Cocaine Metabolite Screen, Urine Positive(A) Negative 02/04/2025 4:20 AM [facility] Comment:Add-on order [id number] Cocaine, Urine, Confirmation if confirmation desired. Ethanol Screen, Urine Negative Negative 02/04/2025 4:20 AM [facility] Fentanyl Screen, Urine Negative Negative 02/04/2025 4:20 AM [facility] Comment:Add-on order [id number] Fentanyl Confirmation, Urine, if confirmation desired. Methadone Screen, Urine Negative Negative 02/04/2025 4:20 AM [facility] Comment:Add order [id number] Me thadone, Urine, Confirmation if confirmation desired. Opiates Screen, Urine Negative Negative 02/04/2025 4:20 AM [facility] Comment: Screen for Morphine, Codeine, Hyrdocodone, Hydromorphone, or other Morphine- related opiates. Add on order [id number] Opiates and Oxycodone, Urine, Confirmation if confirmation desired. Oxycodone Screen, Urine Negative Negative 02/04/2025 4:20 AM [facility] Comment:Add-on order [id number] Opiates and Oxycodone, Urine, Confirmation if confirmation desired. Tramadol Screen, Urine Negative Negative 02/04/2025 4:20 AM [facility] Comment:Add-on order [id number] Tramadol Confirmation, Urine, if confirmation desired. Creatinine, Yang Urine 60.0 >=15.0 mg/dL 02/04/2025 4:20 AM [facility] Urine URINE SPECIMEN / Unknown Collection / Unknown 02/04/2025 3:54 AM EST 02/04/2025 3:57 AM EST [facility] - 02/04/2025 4:20 AM EST These [...] Suzanna Stevens MD URINE ORDERABLES Final Result Performing Organization Address [facility] de Phone Number [place] [phone] * (ABNORMAL) Troponin (02/03/2025 12:30 PM EST) Only the most recent of6 resultswithin the time period is included. Pathologist [facility] Troponin T HS 80(H) <52 ng/L 02/03/2025 1:30 PM EST [facility] Blood PERIPHERAL BLOOD SPECIMEN / Unknown Venipuncture / Unknown 02/03/2025 12:30 PM EST 02/03/2025 12:36 PM EST Suzanna Stevens MD LAB BLOOD ORDERABLES Final Re sult Performing Organization Address [facility] de Phone Number [address] [address] * (ABNORMAL) CBC and Differential (02/03/2025 12:30 PM EST) Only the most recent of9 resultswithin the time period is included. Pathologist [facility] WBC 10.57 4.00 - 11.00 K/uL 02/03/2025 12:46 PM EST [facility] RBC 3.05(L) 4.10 - 5.60 M/uL 02/03/2025 12:46 PM EST [facility] Hemoglobin 9.0(L) 12.7 - 16.7 g/dL 02/03/2025 12:46 PM EST [facility] Hematocrit 29.1(L) 38.1 - 50.1 % 02/03/2025 12:46 PM EST [facility] MCH 29.5 23.0 - 37.0 pg 02/03/2025 12:46 PM [facility] MCHC 30.9 29.0 - 38.0 g/dL 02/03/2025 12:46 PM [facility] MCV 95 82 - 98 fL 02/03/2025 12:46 PM [facility] RDW 18.3(H) 11.5 - 14.5 % 02/03/2025 12:46 PM [facility] Platelet Count 411 150 - 450 K/uL 02/03/2025 12:46 PM [facility] MPV 9.9 6.0 - 14.0 fL 02/03/2025 12:46 PM [facility] Neutrophil 68.4 % 02/03/2025 12:46 PM [facility] Lymphocyte 16.3 % 02/03/2025 12:46 PM [facility] Monocyte 12.2 % 02/03/2025 12:46 PM [facility] Eosinophil 0.4 % 02/03/2025 12:46 PM [facility] Basophil 0.7 % 02/03/2025 12:46 PM [facility] Immature Granulocyte (Richardson, Myelo, Promyelocyte) 2.0 % 02/03/2025 12:46 PM [facility] Absolute Neutrophil Count 7.24 1.50 - 7.70 K/uL 02/03/2025 12:46 PM [facility] Absolute Immature Granulocyte (Richardson, Myelo, Promyelocyte) 0.21(H) 0.00 - 0.09 K/uL 02/03/2025 12:46 PM [facility] Absolute Lymphocyte Count 1.72 1.50 - 4.00 K/uL 02/03/2025 12:46 PM [facility] Absolute Monocyte Count 1.29(H) 0.16 - 1.26 K/uL 02/03/2025 12:46 PM [facility] Absolute Eosinophil Count 0.04(L) 0.15 - 0.30 K/uL 02/03/2025 12:46 PM [facility] Absolute Basophil Count 0.07 0.00 - 0.21 K/uL 02/03/2025 12:46 PM [facility] Blood PERIPHERAL BLOOD SPECIMEN / Unknown Venipuncture / Unknown 02/03/2025 12:30 PM EST 02/03/2025 12:36 PM EST us Suzanna Stevens MD LAB BLOOD ORDERABLES Final Re sult Performing Organization Address [facility] de Phone Number [address] [address] * Magnesium (02/03/2025 12:30 PM EST) Only the most recent of10 resultswithin the time period is included. Magnesium, Blood 2.0 1.6 - 2.6 mg/dL 02/03/2025 1:30 PM EST [facility] Blood PERIPHERAL BLOOD SPECIMEN / Unknown Venipuncture / Unknown 02/03/2025 12:30 PM EST 02/03/2025 12:36 PM EST us Suzanna Stevens MD LAB BLOOD ORDERABLES Final Re sult Performing Organization Address [facility] Phone Number [address] [address] * Ethanol (02/03/2025 12:30 PM EST) Only the most recent of3 resultswithin the time period is included. Alcohol <10 <10 mg/dL 02/03/2025 1:39 PM EST [facility] Blood PERIPHERAL BLOOD SPECIMEN / Unknown Venipuncture / Unknown 02/03/2025 12:30 PM EST 02/03/2025 12:36 PM EST us Suzanna Stevens MD LAB BLOOD ORDERABLES Final Re sult Performing Organization Address [facility] de Phone Number [address] [address] * (ABNORMAL) Basic Metabolic Panel (02/03/2025 12:30 PM EST) Only the most recent of12 resultswithin the time period is included. Sodium 140 135 - 146 mmol/L 02/03/2025 1:30 PM EST [facility] Potassium 4.2 3.4 - 5.2 mmol/L 02/03/2025 1:30 PM EST [facility] Chloride 97(L) 98 - 110 mmol/L 02/03/2025 1:30 PM EST [facility] Total CO2/Bicarbonat e 25 24 - 32 mmol/L 02/03/2025 1:30 PM EST [facility] Anion Gap 18(H) 2 - 15 mmol/L 02/03/2025 1:30 PM EST [facility] BUN 50(H) 7 - 24 mg/dL 02/03/2025 1:30 PM EST [facility] Creatinine, Blood 9.30(H) 0.60 - 1.30 mg/dL 02/03/2025 1:30 PM EST [facility] Glucose, Blood 93 50 - 100 mg/dL 02/03/2025 1:30 PM EST [facility] Calcium 9.4 8.5 - 10.5 mg/dL 02/03/2025 1:30 PM [facility] Estimated GFR (MDRD) 6(L) >=60 mL/min/BSA 02/03/2025 1:30 PM EST [facility] Blood PERIPHERAL BLOOD SPECIMEN / Unknown Venipuncture / Unknown 02/03/2025 12:30 PM EST 02/03/2025 12:36 PM EST Suzanna Stevens MD LAB BLOOD ORDERABLES Final Re sult [facility] [address] [place] [address] * XR Chest 2 Vw (if able [...] Heart Rate 84 BPM EKG BUR MUSE FL Interval 204 ms EKG BUR MUSE QRSD Interval 152 ms EKG BUR MUSE QT Interval 404 ms EKG BUR MUSE QTC Interval 477 ms EKG BUR MUSE P [place] 56 degrees EKG BUR MUSE R [place] -52 degrees EKG BUR MUSE T Wave [place] 22 degrees EKG BUR MUSE 02/03/2025 11:4 0 AM EST 02/03/2025 2:28 PM EST Narrative EKG BUR MUSE - 02/03/2025 2:28 PM EST Normal sinus rhythm Right bundle branch block Left anterior fascicular block --- Bifascicular block --- Abnormal ECG When compared with ECG of 31-JAN-2025, No significant interval change Confirmed by Vincent Wilson ([id number]) on 02/03/2025 2:28:53 PM Procedure Note Vincent Wilson MD - 02/03/2025 Normal sinus rhythm Right bundle branch block Left anterior fascicular block --- Bifascicular block --- Abnormal ECG When compared with ECG of 31-JAN-2025, No significant interval change Confirmed by Vincent Wilson ([id number]) on 02/03/2025 2:28:53 PM us Suzanna Stevens MD ECG ORDERABLES Final [place] [address] * (ABNORMAL) CBC (02/02/2025 3:43 AM EST) Only the most recent of8 resultswithin the time period is included. Pathologist [facility] WBC 10.77 4.00 - 11.00 K/uL 02/02/2025 3:50 AM EST [facility] RBC 2.56(L) 4.10 - 5.60 M/uL 02/02/2025 3:50 AM EST [facility] Hemoglobin 7.6(L) 12.7 - 16.7 g/dL 02/02/2025 3:50 AM [facility] Hematocrit 23.7(L) 38.1 - [...] 150 - 450 K/uL 02/02/2025 3:50 AM EST [facility] MPV 10.0 6.0 - 14.0 fL 02/02/2025 3:50 AM EST [facility] Blood PERIPHERAL BLOOD SPECIMEN / Unknown Venipuncture / Unknown 02/02/2025 3:43 AM EST 02/02/2025 3:46 AM EST Gelacio Garcia MD LAB BLOOD ORDERABLES Ann l Result Performing Organization Address [facility] de Phone Number [facility] [address] [place] [address] * Type and Screen (02/02/2025 3:43 AM [...] TEST ORDERABLES Final Result Performing Organization Address [facility] Phone Number [facility] [address] [place] [phone] * Hemodialysis inpatient (02/01/2025 4:42 PM EST) Narrative Geoffrey Ayala RN - 02/01/2025 4:42 PM EST Geoffrey Ayala RN 02/01/2025 4:48 PM Hemodialysis Nursing Procedure Note Patient: Sushant Christianson : 1960 CSN: [id number] Treatment Summary: Patient received 3 hrs of [...] of2 resultswithin the time period is included. Culture <10,000 CFU/ml mixed urogenital magen, probable contamination FELIPE 02/02/2025 10:02 AM EST [facility] Urine MID-STREAM URINE SPECIMEN / Unknown Collection / Unknown 02/01/2025 12:03 PM EST 02/01/2025 12:15 PM EST us Joselito Soni DO MICROBIOLOGY - GENERAL ORDERAB LES Final Result [facility] [address] [place] [address], * Legionella Urinary Antigen (02/01/2025 12:03 PM EST) Legionella pneumophila serogroup 1 antigen Negative Negative FELIPE 02/01/2025 10:28 PM EST [facility] Comment:Suggesting no recent or current [...] 12:03 PM EST 02/01/2025 12:05 PM EST [employer] MICROBIOLOGY - GENERAL ORDERAB LES Final Result Performing Organization Address [facility] de Phone Number [facility] [address] [place] [address], [place] [phone] * Strep Pneumoniae Urine Antigen (02/01/2025 12:03 PM EST) Strep pneumo Urine Antigen Negative Negative FELIPE 02/01/2025 10:29 PM EST [facility] Comment:Suggesting no curren t or recent pneumococcal infection. Infection due to S. Pneumoniae can not be ruled out since the antigen present in the sample maybe below the detection limit of the test. Urine MID-STREAM URINE SPECIMEN / Unknown Collection / Unknown 02/01/2025 12:03 PM EST 02/01/2025 12:05 PM EST [facility] GENERAL ORDERAB LES Final Result Performing Organization Address [facility] de Phone Number [facility] [address] [place] [address], [place] [phone] * (ABNORMAL) Urinalysis with Reflex to Urine Culture (02/01/2025 12:03 PM EST) Only the most recent of3 resultswithin the time period is included. Color, Urine Yellow Colorless, Straw, Yellow 02/01/2025 12:15 PM EST [facility] Clarity, Urine Clear Clear 02/01/2025 [...] Blood, Urine Negative Negative 02/01/2025 12:15 PM [facility] Leukocyte Esterase, Urine Small(A) Negative 02/01/2025 12:15 PM [facility] Nitrite, Urine Negative Negative 02/01/2025 12:15 PM [facility] Specific [place], Urine 1.010 1.001 - 1.030 02/01/2025 12:15 PM [facility] White Blood Cells, Urine 12(H) <=4 /hpf 02/01/2025 12:15 PM [facility] Red Blood Cells, Urine 4(H) <=2 /hpf 02/01/2025 12:15 PM [facility] Urine MID-STREAM URINE SPECIMEN / Unknown Collection / Unknown 02/01/2025 12:03 PM EST 02/01/2025 12:05 PM EST [facility] DO URINE ORDERABLES Final Result Performing Organization Address [facility] Co de Phone Number [address] [address] * Lactic Acid (02/01/2025 5:25 AM EST) Lactic Acid, Venous, Peripheral 0.5 0.5 - 2.0 mmol/L 02/01/2025 5:51 AM EST [facility] Blood Venipuncture / Unknown 02/01/2025 5:25 AM EST 02/01/2025 5:27 AM EST [facility] LAB BLOOD ORDERABLES Final Res ult Performing Organization Address [facility]/ZIP Co de Phone Number [address] [address] * (ABNORMAL) Phosphorus (02/01/2025 5:25 AM EST) Only the most recent of3 resultswithin the time period is included. Phosphorus 1.7(L) 2.3 - 4.6 mg/dL 02/01/2025 6:02 AM [facility] Blood PERIPHERAL BLOOD SPECIMEN / Unknown Venipuncture / Unknown 02/01/2025 5:25 AM EST 02/01/2025 5:27 AM EST [facility] LAB BLOOD ORDERABLES Final Res ult [address] [address] * (ABNORMAL) Hepatic Function Panel (02/01/2025 5:25 AM EST) Only the most recent of4 resultswithin the time period is included. Total Protein 6.7 6.2 - 8.2 g/dL 02/01/2025 6:02 AM [facility] Albumin, Blood 3.7 3.4 - 5.2 g/dL 02/01/2025 6:02 AM [facility] Result 3.0 2.0 - 4.0 g/dL 02/01/2025 6:02 AM [facility] Total Bilirubin 0.3 0.2 - 1.2 mg/dL 02/01/2025 6:02 AM [facility] Direct Bilirubin 0.1 0.1 - 0.5 mg/dL 02/01/2025 6:02 AM [facility] Alkaline Phosphatase 245(H) 30 - 115 U/L 02/01/2025 6:02 AM [facility] AST (SGOT) 11 11 - 40 U/L 02/01/2025 6:02 AM [facility] ALT (SGPT) 13 7 - 40 U/L 02/01/2025 6:02 AM [facility] Blood PERIPHERAL BLOOD SPECIMEN / Unknown Venipuncture / Unknown 02/01/2025 5:25 AM EST 02/01/2025 5:27 AM EST us Tessera Strand DO LAB BLOOD ORDERABLES Final Res ult [facility] [address] [place] [address] * Coronavirus SARS-CoV-2 and Influenza A/B (02/01/2025 2:47 AM EST) Only the most recent of2 resultswithin the time period is included. Coronavirus SARS-CoV-2 Not Detected Not Detected ORLIN JONA 02/01/2025 3:27 AM EST [facility] Influenza A Not Detected Not Detected ORLIN JONA 02/01/2025 3:27 AM EST [facility] Comment: A negative test does not rule out infection with an influenza virus. Influenza B Not Detected Not Detected ORLIN JONA 02/01/2025 3:27 AM EST [facility] Comment:A negative test does not rule out infection with an influenza virus. xNasopharyngeal NASOPHARYNGEAL SWAB / Unknown Collection / Unknown 02/01/2025 2:47 AM EST 02/01/2025 3:03 AM EST Narrative [facility] - 02/01/2025 3:27 AM EST Test performed using the Eliezer orlin JONA CoV-2 & Influenza RT-PCR assay, which has received emergency use authorization (EUA) by the U.S. Food and Drug Administration. Test performance has been verified by the [facility]. A Negative test [...] patient management decisions. Fact sheet for providers: https://www.fda.gov/media/450205/download Fact sheet for patients: https://www.fda.gov/media/001634/download Method: Real time polymerase chain reaction us Tessera Zachariah DO BODY FLUIDS AND STOOLS ORDERAB LES Final Result [facility] [address] [place] [address] * Nasal MRSA/SA By PCR (02/01/2025 2:47 AM EST) Pathologist [facility] MRSA PCR Negative Negative 02/01/2025 12:00 PM EST [facility] S. aureus PCR Negative Negative 02/01/2025 12:00 PM EST [facility] Swab BOTH ANTERIOR NARES / Unknown 02/01/2025 2:47 AM EST 02/01/2025 3:03 AM EST us Tessera Zachariah DO MICROBIOLOGY - GENERAL ORDERAB LES Final Result Performing Organization Address City/[facility] Co de Phone Number [facility] [address] [place] [address], * (ABNORMAL) Venous Blood Gas (02/01/2025 12:25 AM EST) Only the most recent of4 resultswithin the time period is included. Pathologist [facility] FLOW RATE 45.0 02/01/2025 12:40 AM EST [facility] FIO2 21 % 02/01/2025 12:40 [...] AM EST 02/01/2025 12:38 AM EST [facility] BLOOD ORDERABLES Final Resu lt [facility] [address] [place] [address] [phone] * XR Chest 1 Vw Portable [...] appear normal for age. Resulting Agency Comment [id number] Procedure Note RossmoyneLena Handy MD - 01/31/2025 EXAM DESCRIPTION: XR CHEST [...] Probable small bilateral pleural effusions. [facility] IMG DIAGNOSTIC IMAGING ORDERABL ES Final Result [...] significant soft tissue swelling. Resulting Agency Comment [id number] Procedure Note Lena Gonzalez MD - 01/31/2025 [...] or large vessel territorial infarct. [facility] IM CT ORDERABLES Final Result * POCT Glucose (01/31/2025 5:12 PM EST) Only the most recent of5 resultswithin the time period is included. Glucose, POC 101 70 - 118 mg/dL 01/31/2025 5:20 PM EST [facility] Blood 01/31/2025 5:12 PM EST 01/31/2025 5:20 PM EST Provider Not In System POCT ORDERABLES - DEVICE Final Result [facility] [address] [place] [address] * (ABNORMAL) Procalcitonin (01/31/2025 5:06 PM EST) Procalcitonin 1.40(H) <0.15 ng/mL 01/31/2025 8:33 PM EST [facility] Comment: Interpretation of PCT levels between 0.5 ng/mL and 2.0 ng/mL requires clinical correlation to evaluate for infectious or non-infectious conditions known to induce changes in PCT levels Blood PERIPHERAL BLOOD SPECIMEN / Unknown Venipuncture / Unknown 01/31/2025 5:06 PM EST 01/31/2025 5:08 PM EST Jacinto [place] LAB BLOOD ORDERABLES Final Resu lt Performing Organization Address [facility]/ZIP Co de Phone Number [facility] [address] [place] [address] * CK (Creatine Kinase) (01/31/2025 5:06 PM EST) Pathologist [facility] Creatine Kinase Total (CK) 44 30 - 194 U/L 01/31/2025 6:52 PM EST [facility] Blood PERIPHERAL BLOOD SPECIMEN / Unknown Venipuncture / Unknown 01/31/2025 5:06 PM EST 01/31/2025 5:08 PM EST [facility] [place] LAB BLOOD ORDERABLES Final Resu lt Performing Organization Address [facility] Co de Phone Number [facility] [address] [place] [address] * (ABNORMAL) Comprehensive Metabolic Panel (01/31/2025 5:06 PM EST) Only the most recent of5 resultswithin the time period is included. Pathologist [facility] Sodium 141 135 - 146 mmol/L 01/31/2025 5:35 PM EST [facility] Potassium 5.7(H) 3.4 - 5.2 mmol/L 01/31/2025 5:35 PM EST [facility] Chloride 103 98 - 110 mmol/L 01/31/2025 5:35 PM EST [facility] Total CO2/Bicarbonate 22(L) 24 - 32 mmol/L 01/31/2025 5:35 PM EST [facility] Anion Gap 16(H) 2 - 15 mmol/L 01/31/2025 5:35 PM EST [facility] BUN 59(H) 7 - 24 mg/dL 01/31/2025 5:35 PM EST [facility] Creatinine, Blood 9.30(H) 0.60 - 1.30 mg/dL 01/31/2025 5:35 PM EST [facility] Glucose, Blood 102(H) 50 - 100 mg/dL 01/31/2025 5:35 PM EST [facility] Calcium 9.3 8.5 - 10.5 mg/dL 01/31/2025 5:35 PM EST [facility] Total Protein 7.4 6.2 - 8.2 g/dL 01/31/2025 5:35 PM EST [facility] Albumin, Blood 4.0 3.4 - 5.2 g/dL 01/31/2025 5:35 PM [facility] Globulin Result 3.4 2.0 - 4.0 g/dL 01/31/2025 5:35 PM EST [facility] AST (SGOT) 19 11 - 40 U/L 01/31/2025 5:35 PM [facility] Comment:Specimen hemolyzed; result may be invalid. Interpret with caution. ALT (SGPT) 16 7 - 40 U/L 01/31/2025 5:35 PM EST [facility] Alkaline Phosphatase 267(H) 30 - 115 U/L 01/31/2025 5:35 PM EST [facility] Total Bilirubin 0.3 0.2 - 1.2 mg/dL 01/31/2025 5:35 PM [facility] Estimated GFR (MDRD) 6(L) >=60 mL/min/BSA 01/31/2025 5:35 PM [facility] Blood PERIPHERAL BLOOD SPECIMEN / Unknown Venipuncture / Unknown 01/31/2025 5:06 PM EST 01/31/2025 5:08 PM EST Wilfredo Taveras DO LAB BLOOD ORDERABLES Fi nal Result Performing Organization Address City/State/[facility] Co de Phone Number [address] [address] * Hemodialysis inpatient (01/29/2025 4:10 AM EST) Narrative Pinky Nichols RN - 01/29/2025 4:10 AM EST Pinky Nichols RN 01/29/2025 4:10 AM Hemodialysis Nursing Procedure Note Patient: Sushant Christianson : 1960 CSN: [id number] Treatment Summary: Pt oriented x3. HD tx [...] Note Patient: Sushant Christianson : 1960 CSN: [id number] Treatment Summary: Pt. A&O x3. Last HD [...] joint spaces appear normal. Resulting Agency Comment [id number] Procedure Note Kt Fuentes MD - 01/27/2025 [...] Detected Not Detected 01/27/2025 2:59 PM EST [facility] Influenza A Not Detected Not Detected 01/27/2025 2:59 PM EST [facility] Comment:A negative test does not rule out infection with an influenza virus. Influenza B Not Detected Not Detected 01/27/2025 2:59 PM EST [facility] Comment:A negative test does not rule out infection with an influenza virus. RSV by PCR Not Detected Not Detected 01/27/2025 2:59 PM EST [facility] Comment:A negative test does not rule out infection with RSV. Respiratory SWAB OF INTERNAL NOSE / Unknown Collection / Unknown 01/27/2025 2:10 PM EST 01/27/2025 2:10 PM EST Narrative [facility] - 01/27/2025 2:59 PM EST Test performed using the [employer] GeneXpert CoV-2/Flu/RSV plus (RT-PCR) assay, which has received emergency use authorization (EUA) by the U.S. Food and Drug Administration. Test performance has been verified by the [facility]. A Negative test [...] patient management decisions. Fact sheet for providers: https://www.fda.gov/media/093668/download Fact sheet for patients: https://www.fda.gov/media/328694/download Method: Real time polymerase chain reaction, multianalyte Antonio Gilmore MD BODY FLUIDS AND STOOLS ORDERABL ES Final Result Performing Organization Address [facility] Co de Phone Number [address] [address] * APTT (01/27/2025 2:07 PM EST) PTT 33 22 - 36 s 01/27/2025 2:36 PM EST [facility] Comment:Unfractionated Hepar in Therapeutic Range: 70-110 seconds. Blood PERIPHERAL BLOOD SPECIMEN / Unknown Venipuncture / Unknown 01/27/2025 2:07 PM EST 01/27/2025 2:07 PM EST Antonio Gilmore MD LAB BLOOD ORDERABLES Final Resu lt [facility] [address] [place] [address] * (ABNORMAL) PT-INR (01/27/2025 2:07 PM EST) [...] ORDERABLES Final Resu lt Performing Organization Address City/State/[facility] Co de Phone Number [facility] [address] [address] * CT Chest Abdomen Pelvis Trauma With [...] chronic. There is gynecomastia. Resulting Agency Comment [id number] Procedure Note Kt Fuentes MD - 01/27/2025 [...] reflect colitis. 5. Other findings as above. us Antonio Gilmore MD IM CT ORDERABLES Final Result * CT Cervical [...] right-sided central venous catheter. Antonio Gilmore MD [facility] [place] ORDERABLES Final Result * CT Head [...] chest. Last dialysis on Sunday of last . COMPARISON: Head CT from 12/23/2024. CT of [...] right-sided central venous catheter. Antonio Gilmore MD [facility] [place] ORDERABLES Final Result * (ABNORMAL) Toxicology Screen, Blood (01/27/2025 12:40 PM EST) Pathologist [facility] Acetaminophen Result,Blood 7(L) 10 - 30 ug/mL 01/27/2025 1:40 PM EST [facility] Alcohol <10 <10 mg/dL 01/27/2025 1:40 PM EST [facility] Salicylate Level, Blood <1 <30 mg/dL 01/27/2025 1:40 PM EST [facility] Blood PERIPHERAL BLOOD SPECIMEN / Unknown Venipuncture / Unknown 01/27/2025 12:40 PM EST 01/27/2025 12:42 PM EST Antonio Gilmore MD LAB BLOOD ORDERABLES Final Resu lt Performing Organization Address [facility] de Phone Number [address] [address] * Blue Top (01/27/2025 12:40 PM EST) [facility] Blue Top Tube Received 01/27/2025 2:47 PM EST [facility] Blood PERIPHERAL BLOOD SPECIMEN / Unknown Venipuncture / Unknown 01/27/2025 12:40 PM EST 01/27/2025 2:42 PM EST Antonio Gilmore MD LAB BLOOD ORDERABLES Final Resu lt Performing Organization Address [facility] de Phone Number [address] [address] * Hepatitis B Surface Antigen (01/27/2025 12:40 PM EST) Only the most recent of2 resultswithin the time period is included. [facility] Hep B Aylin Ag Negative Negative 01/27/2025 2:37 PM EST [facility] Blood PERIPHERAL BLOOD SPECIMEN / Unknown Venipuncture / Unknown 01/27/2025 12:40 PM EST 01/27/2025 12:42 PM EST Annette Stanton MD LAB BLOOD ORDERABLES Final Resul t Performing Organization Address City/[facility] Co de [facility] Number [facility] [address] [place] [address] * Lactic Acid, Reflexed (12/26/2024 8:00 PM EDT) Lactic Acid, Venous, Peripheral 1.0 0.5 - 2.0 mmol/L 12/26/2024 8:35 PM EDT [facility] Blood Venipuncture / Unknown 12/26/2024 8:00 PM EDT 12/26/2024 8:04 PM EDT Ralph JOHNSTON LAB BLOOD ORDERABLES Final Res ult Performing Organization Address [facility] de Phone Number [facility] [address] [place] [address] * (ABNORMAL) Lactic Acid with 3 Hour Reflex (12/26/2024 5:11 PM EDT) Lactic Acid, Venous, Peripheral 3.1(H) 0.5 - 2.0 mmol/L 12/26/2024 5:43 PM EDT [facility] Blood PERIPHERAL BLOOD SPECIMEN / Unknown Venipuncture / Unknown 12/26/2024 5:11 PM EDT 12/26/2024 5:11 PM EDT Ralph JOHNSTON LAB BLOOD ORDERABLES Final Res ult Performing Organization Address [facility] de Phone Number [facility] [address] [place] [address] * Blood Bank Hold Tube (12/26/2024 5:01 PM EDT) [place] Top Tube Received 12/26/2024 5:22 PM EDT [facility] Blood Venipuncture / Unknown 12/26/2024 5:01 PM EDT 12/26/2024 5:05 PM EDT Suzanna Stevens MD BLOOD BANK TEST ORDERABLES Fi nal Result Performing Organization Address [facility]/ZIP Co de Phone Number [facility] [address] [place] [address] * TSH (12/26/2024 5:01 PM EDT) Pathologist [facility] TSH 1.43 0.30 - 4.50 uIU/mL 12/26/2024 5:44 PM EDT [facility] Blood PERIPHERAL BLOOD SPECIMEN / Unknown Venipuncture / Unknown 12/26/2024 5:01 PM EDT 12/26/2024 5:05 PM EDT Ralph Yeager [place] LAB BLOOD ORDERABLES Final Res ult Performing Organization Address [facility]/[place] [address] * Potassium (12/23/2024 5:21 PM EDT) [facility] Potassium 4.8 3.4 - 5.2 mmol/L 12/23/2024 5:59 PM EDT [facility] Blood PERIPHERAL BLOOD SPECIMEN / Unknown Venipuncture / Unknown 12/23/2024 5:21 PM EDT 12/23/2024 5:24 PM EDT Result [facility] Jocy Raygoza [place] LAB BLOOD ORDERABLES Final Res ult Performing Organization Address [facility]/[place] [address] * (ABNORMAL) Hs-Troponin (with reflex 0, 3 hours) (12/23/2024 3:54 PM EDT) [facility] Troponin T HS 83(H) <52 ng/L 12/23/2024 4:44 PM EDT [facility] Comment:Sample severely hemo lyzed. Result may be artificially decreased. Blood PERIPHERAL BLOOD SPECIMEN / Unknown Venipuncture / Unknown 12/23/2024 3:54 PM EDT 12/23/2024 3:58 PM EDT Jocy Raygoza [place] LAB BLOOD ORDERABLES Final Res ult [facility] [address] [place] [address] * XR Abdomen AP (12/04/2024 9:53 AM [...] at the right hip. Resulting Agency Comment [email or web address] Procedure Note Wilfredo Alvarado MD - 12/04/2024 [...] No intra-abdominal foreign body recognized. us Tessera Strand DO IMG DIAGNOSTIC IMAGING ORDERAB LES Final Result * US ABDOMEN LIMITED (12/03/2024 3:22 PM EDT) Anatomical Region Laterality Modality Abdomen Ultrasound Addenda Addendum by Rossmoyne, Vanessa, MD on 12/30/2024 11:37 AM EDT [facility] [...] identified. IMPRESSION: No evidence of acute cholecystitis. us [place] Karthik ABREU IM US ORDERABLES Edited Res ult - Final * Differential (12/03/2024 11:25 AM EDT) Morphology Normal RBC morphology,Va cuolated neutrophils, 12/03/2024 12:13 PM EDT [facility] Platelet Estimate Platelets Adequate 12/03/2024 12:13 PM EDT [facility] Blood PERIPHERAL BLOOD SPECIMEN / Unknown Venipuncture / Unknown 12/03/2024 11:25 AM EDT 12/03/2024 11:25 AM EDT Cyn Angeles MD LAB BLOOD ORDERABLES Final R esult [facility] [address] [place] [address] * US Guided PIV (12/02/2024 3:09 PM [...] (ABNORMAL) Lipid Panel (04/18/2024 8:05 AM EST) Pathologist [facility] Cholesterol 135 125 - 200 mg/dL 04/18/2024 [...] ORDERABLES Final Resul t Performing Organization Address [facility] de Phone Number [facility] [address] * (ABNORMAL) Hemoglobin A1C (08/03/2023 9:07 PM EDT) Hemoglobin A1C 5.7(H) 4.6 - 5.6 % 08/04/2023 6:16 AM EDT [facility] Estimated Average Glucose 117 mg/dL 08/04/2023 6:16 AM EDT [facility] Blood PERIPHERAL NERVOUS SYSTEM STRUCTURE / Unknown Venipuncture / Unknown 08/03/2023 9:07 PM EDT 08/03/2023 9:13 PM EDT Lena Roche MD LAB BLOOD ORDERABLES Final Re sult Performing Organization Address City/[facility] Co de Phone Number [facility] [address] from Last 3 Months or Most Recently Relevant to Health Maintenance
--- OUTSIDE RECORDS SUMMARY | 2025-02-04 16:38 | XMS_ITS | Encounter Summary ---
Author Organization [facility] Address [address] [place] [address] Care Team Providers Care Network Solutions Architect Name Role Phone Ochin, Provider Primary Care Provider Unavailabl e Encounter Details Date Type Department Care Team (Late st Contact Info) Description 11/01/2021 Case Management Visit [facility] [address] [facility] SECOND FLOOR [place] [phone] Marquis Lex [address] [place] [address] Social History Tobacco Use Types Packs/Day Years [...] encounter Progress Notes * Marquis Burnett - 11/01/2021 11:49 AM EDT Brief CM meeting. Sushant and I discussed his needs, as well as potential housing options. I believe he makes too much income to be housed via sober living, and he has no interest in sober homes. With his income, he is looking to pay no more than $1100/month on rent. I believe he is capable of paying rent, and has shown me that he is able to save. However he explained that he feels he has a lack of activity, and too much free time on his hands which ultimately gives him urges to drink. documented in this encounter Plan of Treatment [...] documented as of this encounter Care Teams Network Solutions Architect Relationship Specialty [place] [address] PCP - General 12/22/24 [facility] Health Network Solutions Architect 02/25/18 [facility] 03/01/22 documented as of this encounter
[2025-02-04 18:52] VITALS: TEMP 37.7
--- NOTE | 2025-02-04 19:26 | PC.NURSE ---
Upon admission to [facility] handed RN Teresa Martinez pt belongings bag at 1450 and belongings brought to behind the nurses station. When this RN approached the nurses station to see if belongings were labeled, belonging bag was not behind the nurses station. Clinical coordinator Xiomara Abad notified.
[2025-02-04 20:00] VITALS: BP 130/65; PULSE 89; RESP 16; TEMP 37.4; O2SAT 96
[2025-02-04] MEDS: Sevelamer Carbonate Tablet 800 MG TABLET PO (20:36)
[2025-02-05] VITALS (12 sets, daily range): BP systolic 81–142; BP diastolic 50–86; PULSE 80–102; RESP 14–18; TEMP 36.8–37.7; O2SAT 95–98; BMI 25.6
[2025-02-05 08:18] LABS: Alanine Aminotransferase 11 U/L (0-40); Albumin Level 4.1 g/dL (3.5-5.0); Alkaline Phosphatase 242 U/L (39-117); Anion Gap 16 (12-20); Aspartate Amino Transferase 16 U/L (5-37); Blood Urea Nitrogen 36 mg/dL (9-16); Calcium 9.1 mg/dL (8.4-10.2); Carbon Dioxide 24 mmol/L (22-29); Chloride 104 mmol/L (96-108); Cholesterol 194 mg/dL (<200); Creatinine Clr Calc Pharmacy 9.4; Estimated Glomerular Filt Rate 7; HDL Cholesterol 83 mg/dL (>40); Potassium 4.3 mmol/L (3.3-5.1); Sodium 140 mmol/L (135-145); Total Protein 6.9 g/dL (6.5-8.0); Triglycerides 109 mg/dL (<150)
--- NOTE | 2025-02-05 08:22 | HO.PM.IMCN ---
History of Present Illness Data of Consult Service Date: 02/05/25 Primary Care Provider: Unknown Physician HPI Reason for consult: Medical consult 65-year-old male patient with end-stage renal disease on dialysis 3 times a week, alcohol dependence, alcoholic fatty liver disease, anemia of chronic disease, anxiety, depression, BPH, COPD, smoker, GERD, hyperlipidemia, hypertension, polysubstance abuse and history of syncope presented to the emergency room with depression and suicidal ideation. Prior to admission he admitted to drinking 1 pt of vodka per day, patient also used crack cocaine WASHER HAND. Baseline EKG with a right bundle branch block and left anterior fascicular block. Chest x-ray with probable small bilateral pleural effusions, no pneumonia. Head CT with no acute intracranial abnormalities noted. he had an x-ray of his left knee due to unspecified trauma which was negative for any bony abnormalities. Patient had a chest CT abdomen and pelvis with no evidence of trauma. Patient with no significant electrolyte imbalances aside from renal function, mild anemia consistent with ESRD. ETOH less than 10. Patient dialyzed today. On exam he has no medical concerns, wants to go home. Review of Systems Review of Systems: Denies any shortness of breath, chest pain, headaches, dysuria, abdominal pain or discomfort, nausea, vomiting or diarrhea. Denies fever or chills. [facility] Medical History (Updated 02/05/25 @ 13:50 by Azalia Nolasco MD) BPH (benign prostatic hyperplasia) HTN (hypertension) Healthcare-associated pneumonia Kruse's esophagus without dysplasia Alcoholic fatty liver Altered mental status (~01/31/25) Surgical History (Updated 02/05/25 @ 13:41 by Azalia Nolasco MD) Perforated appendix Social History Household Members: None Housing: Apartment Do you presently have visiting nurse or other home services: No Comment: 5 min check. Patient Tobacco Use Status: Current everyday Tobacco user Tobacco use type: Cigarette Cigarette Packs Per Day: 1 Cigarettes Per Day: 20.0 Smoked in Last 30 Days: Yes e-Cigarette/Vaping Use: Never Used Patient Interested in Nicotine Replacement: Yes Patient Given Instructions on How to Stop Smoking: Yes Date Education Initiated: 02/04/25 Second Hand Smoke Exposure: No Currently Displaying Signs/Symptoms of Drug Intoxication Withdrawal: No Have you been hit, kicked, punched, or otherwise hurt by someone within the past year? If so, by whom?: No Do you feel safe in your current relationship?: Yes Is there a partner from a previous relationship who is making you feel unsafe now?: No Are you made to feel afraid or neglected: No Advance Directives: No Advance Directives Information Provided: No Do you have thoughts of harming others: None Do you have a plan to hurt others: No Plan Recently lost weight without trying: No Nutrition Risks: No Nutritional Risk Poor oral hygiene: No Meds Allergies Allergy/AdvReac Type Severity Reaction Status Date / Time No Known Allergies Allergy Verified 02/04/25 14:00 Active Medications: Current Medications Acetaminophen (Acetaminophen 325 Mg Tablet) 650 mg PO Q6H PRN PRN Reason: Headache/Pain, Scale 1-10 Al Hydroxide/Mg Hydroxide (Magnesium Hydrox/Alum Hydrox 30 Ml Oral.Susp) 30 ml PO Q6H PRN PRN Reason: Heartburn/Nausea Aspirin (Aspirin Enteric Coated 81 Mg Tablet.) 81 mg PO DAILY [facility] Atorvastatin Calcium (Atorvastatin Calcium 80 Mg Tablet) 80 mg PO DAILY [facility] Clopidogrel Bisulfate (Clopidogrel Bisulfate 75 Mg Tablet) 75 mg PO DAILY [facility] Doxycycline Monohydrate (Doxycycline Monohydrate 100 Mg Capsule) 100 mg PO Q12H [facility] Last Admin: 02/05/25 06:18 Dose: 100 mg Folic Acid (Folic Acid 1 Mg Tablet) 1 mg PO DAILY [facility] Hydroxyzine HCl (Hydroxyzine Hcl 50 Mg Tablet) 50 mg PO TID PRN PRN Reason: Anxiety Lamotrigine (Lamotrigine 25 Mg Tablet) 25 mg PO DAILY [facility] Lorazepam (Lorazepam 1 Mg Tablet) 1 mg PO Q2H PRN PRN Reason: CIWA 8-11 Lorazepam (Lorazepam 1 Mg Tablet) 2 mg PO Q2H PRN PRN Reason: CIWA 12-15 Last Admin: 02/04/25 20:36 Dose: 2 mg Lorazepam (Lorazepam 1 Mg Tablet) 3 mg PO Q2H PRN PRN Reason: CIWA > 15, and call Melatonin (Melatonin 3 Mg Tablet) 9 mg PO BEDTIME [facility] Last Admin: 02/04/25 20:36 Dose: 9 mg Metoprolol Tartrate (Metoprolol Tartrate 25 Mg Tablet) 25 mg PO DAILY [facility]; Protocol Midodrine (Midodrine Hcl 2.5 Mg Tablet) 2.5 mg PO DAILY PRN PRN Reason: SBP<100 Olanzapine (Olanzapine 10 Mg Tablet) 10 mg PO BID [facility] Last Admin: 02/04/25 20:36 Dose: 10 mg Sertraline HCl (Sertraline Hcl 100 Mg Tablet) 200 mg PO DAILY [facility] Sevelamer Carbonate (Sevelamer Carbonate Tablet 800 Mg Tablet) 800 mg PO QIDWMHS [facility] Last Admin: 02/04/25 20:36 Dose: 800 mg Sodium Zirconium Cyclosilicate (Sodium Zirconium Cyclosilicate 5 Gm Powd.Pack) 5 gm PO DAILY SUZETTE Thiamine HCl (Thiamine Hcl 100 Mg Tablet) 100 mg PO DAILY SUZETTE Trazodone HCl (Trazodone Hcl 50 Mg Tablet) 50 mg PO BEDTIME MRX1 PRN PRN Reason: Insomnia Home Medications ?Medication ?Instructions ?Recorded ?Confirmed ?Last Taken ?Type acetaminophen 500 mg tablet 500 mg PO Q6H PRN pain 02/04/25 02/04/25 Unknown History aspirin 81 mg tablet,delayed 81 mg PO DAILY 02/04/25 02/04/25 Unknown History release atorvastatin 80 mg tablet 80 mg PO DAILY 02/04/25 02/04/25 Unknown History brexpiprazole 3 mg tablet (Rexulti) 3 mg PO DAILY 02/04/25 02/04/25 Unknown History carvedilol 12.5 mg tablet 12.5 mg PO BIDWMEAL 02/04/25 02/04/25 Unknown History clopidogrel 75 mg tablet 75 mg PO DAILY 02/04/25 02/04/25 Unknown History folic acid 1 mg tablet 1 mg PO DAILY 02/04/25 02/04/25 Unknown History gabapentin 100 mg capsule 100 mg PO DAILY 02/04/25 02/04/25 Unknown History hydroxyzine HCl 50 mg tablet 50 mg PO TID PRN anxiety 02/04/25 02/04/25 Unknown History lamotrigine 25 mg tablet 25 mg PO DAILY 02/04/25 02/04/25 Unknown History melatonin 3 mg tablet 9 mg PO BEDTIME 02/04/25 02/04/25 Unknown History metoprolol tartrate 25 mg tablet 25 mg PO DAILY 02/04/25 02/04/25 Unknown History midodrine 2.5 mg tablet 2.5 mg PO NEEDED PRN SBP<100 02/04/25 02/04/25 Unknown History olanzapine 10 mg tablet 10 mg PO BID 02/04/25 02/04/25 Unknown History pantoprazole 40 mg tablet,delayed 40 mg PO BID 02/04/25 02/04/25 Unknown History release sertraline 100 mg tablet 200 mg PO DAILY 02/04/25 02/04/25 Unknown History sevelamer carbonate 800 mg tablet 800 mg PO QIDWMHS 02/04/25 02/04/25 Unknown History sodium zirconium cyclosilicate 5 5 g PO DAILY 02/04/25 02/04/25 Unknown History gram oral powder packet (kelri) trazodone 50 mg tablet 50 mg PO BEDTIME 02/04/25 02/04/25 Unknown History Physical Exam Vital Signs and Narrative: Vital Signs: Last Vital Signs Temp 98.3 F 02/05/25 03:59 Pulse 80 02/05/25 03:59 Resp 16 02/05/25 03:59 BP 138/86 02/05/25 03:59 Pulse Ox 95 02/05/25 03:59 O2 Del Method Room Air 02/05/25 03:59 BMI result Body Mass Index 25.3 Alert and oriented X3, calm and cooperative. Answers questions. Neuro: CN II-X11 intact, no deficits, visual acuity intact EYES: PERRLA, EOM intact ENT: Hearing intact, MMM Cardiac: S1 S2 RRR, No ectopy Pulmonary: lungs clear to auscultation, No increased WOB. Abdominal: BS active in all 4 quadrants, no guarding or tenderness MSK: Strength 5/5 upper and lower extremities : Deferred Extremities: No edema in lower extremities Psych: Mood stable, Quiet and cooperative. Skin: Warm and dry, Intact. Right AV fistula and PermCath right chest Results Labs 02/05/25 07:16 Labs: Laboratory Results - last 24 hr 02/05/25 07:16 Anion Gap 16 Estim Creat Clear Calc 9.4 Estimated GFR 7 Random Glucose 103 Calcium 9.1 Phosphorus 4.3 Total Bilirubin 0.4 AST 16 ALT 11 Alkaline Phosphatase 242 H Total Protein 6.9 Albumin 4.1 Triglycerides 109 Cholesterol 194 LDL Cholesterol, Calc 90 HDL Cholesterol 83 Assessment and Plan (1) HTN (hypertension): Qualifiers: Hypertension type: unspecified Qualified Code(s): I10 - Essential (primary) hypertension Status: Chronic (2) End stage renal disease: Status: Acute Plan 64-year-old male with past medical history as below presented to [place] ED with increased depression and suicide ideation. Patient admitted for stabilization. Depression/anxiety/polysubstance abuse/ETOH dependence Treatment per psychiatric team CIWA scale ESRD on dialysis/anemia of chronic kidney disease Patient dialyzed today Followed by nephrology team Continue Renvela Hypertension/hyperlipidemia/CAD Continue metoprolol and Coreg Continue atorvastatin and Plavix Continue daily aspirin Lipid level within normal limits Alcoholic fatty liver disease Stable liver functions BPH Not on medications COPD/smoker Not in acute exacerbation No home meds Encouraged smoking cessation History of GERD Not on medications Thank you for allowing me to participate in the care of this patient. Will follow with you, please notify medical provider with any changes in condition or concerns.
--- NOTE | 2025-02-05 08:51 | HO.PSYADMNOT ---
HPI Date of Service: 02/04/25 Chief Complaint: depression... very depressed... like 12/03 Sources of Information: patient interviewed and chart reviewed Additional Sources of Information: Referral documents HPI Subjective Notes: Thompson Warning (given and understood) and Conditional Voluntary Healthcare Proxy: Yes (TBD) Guardianship: No Medical Problems Affecting Mental Status: Yes (numerous medical problems including CKD with dialysis 3x week, COPD, ) Narrative: 65 yo male transferred from [facility] for depression and SI, in the setting of alcohol use d/o and numerous medical comorbidities among them CKD on dialysis (recently said to have missed dialysis, left ED AMA on 02/02 while pending medical admission. Patient returned to ED on 02/03/15. He reported depression and SI and was placed on section 12 and deemed in need for psychiatric hospitalization for treatment, stabilization on psychiatric condition, safe alcohol detoxification and medical/nephrology management. Patient drinks daily, consumes cocaine which he reports occasionally. Last alcohol 02/03/25. States he doesn't recall last use of cocaine, although referral documents indicate regular use. Patient reports chronic depressive symptoms with episodes of recrudescence that escalates to SI, and wish to kill self. He cannot identify specific precipitants, or any association with medical issues (ie, hydroelectrolytic/metabolic imbalances and/or use of substances. Patient reports current depression at 12/03 and SI but no current plan/intent to harm self or thought of harming others. He endorsed past symptoms of psychosis ([facility] referring to him in past). Poor sleep, hopeless, helplessness, refusal of medical care. He states he has tardive diskinesia but cannot say who diagnosed him or under what circumastances. He says Olanzapine works for him and stabilizes him but superficial as to how. He does not know reason for Brexpiprazole, which given symptoms suggestive of TD, and being on other antipsychotic I held for clarification. Past Psychiatric History: Per patient sxs depression present since youth. Reports depression sxs have varied in intensity and when severe he becomes hopeless, feels helpless, experiences feelings of despair, feels nothing is worth and has passive and/or active SI with plan/intent. Endorses prior treatment w/ antipsychotics (can't recall name, presents with orofacial movements and states he was told maybe tardive dyskinesia Patient also endorsed past symptoms suggestive of psychosis such of reference. Patient did not report past hospitalizations and details of treatment. Medical Evaluation Reviewed: Hospitalist Vianeyal Pending (consult requested) nephrology consult and dialysis today (02/05) [facility] Medical History (Updated 02/05/25 @ 13:50 by Azalia Nolasco MD) BPH (benign prostatic hyperplasia) HTN (hypertension) Healthcare-associated pneumonia Kruse's esophagus without dysplasia Alcoholic fatty liver Altered mental status (~01/31/25) Narrative: see problem list for medical and behavioral health Surgical History (Updated 02/05/25 @ 13:41 by Azalia Nolasco MD) Perforated appendix Family History: mood do/depression father; mother DM and thyroid dis Social History: recently living with GF Substance History: as noted Trauma History: none reported. Recent loss father which patient reports was close to Diagnostics Vital Signs (24Hr): Vital Signs - 24 hr 02/04/25 14:00 02/04/25 18:52 02/04/25 20:00 Temperature 99.5 F 99.9 F 99.3 F Pulse Rate 108 H 89 Respiratory Rate 18 16 Blood Pressure 120/74 130/65 Pulse Oximetry 96 96 Oxygen Delivery Method Room Air Room Air 02/05/25 00:00 02/05/25 03:59 Temperature 98.2 F 98.3 F Pulse Rate 84 80 Respiratory Rate 14 16 Blood Pressure 123/85 138/86 Pulse Oximetry 98 95 Oxygen Delivery Method Room Air Room Air BMI result Body Mass Index 25.3 Labs 02/05/25 07:16 Labs: Laboratory Results - last 48 hr 02/05/25 07:16 Sodium 140 Potassium 4.3 Chloride 104 Carbon Dioxide 24 Anion Gap 16 BUN 36 H Creatinine 7.76 H* Estim Creat Clear Calc 9.4 Estimated GFR 7 Random Glucose 103 Estimat Average Glucose 94 Hemoglobin A1c % 4.9 Calcium 9.1 Phosphorus 4.3 Total Bilirubin 0.4 AST 16 ALT 11 Alkaline Phosphatase 242 H Total Protein 6.9 Albumin 4.1 Triglycerides 109 Cholesterol 194 LDL Cholesterol, Calc 90 HDL Cholesterol 83 Meds/Allergies Meds Home Medications ?Medication ?Instructions ?Recorded ?Confirmed ?Type acetaminophen 500 mg tablet 500 mg PO Q6H PRN pain 02/04/25 02/04/25 History aspirin 81 mg tablet,delayed 81 mg PO DAILY 02/04/25 02/04/25 History release atorvastatin 80 mg tablet 80 mg PO DAILY 02/04/25 02/04/25 History brexpiprazole 3 mg tablet (Rexulti) 3 mg PO DAILY 02/04/25 02/04/25 History carvedilol 12.5 mg tablet 12.5 mg PO BIDWMEAL 02/04/25 02/04/25 History clopidogrel 75 mg tablet 75 mg PO DAILY 02/04/25 02/04/25 History folic acid 1 mg tablet 1 mg PO DAILY 02/04/25 02/04/25 History gabapentin 100 mg capsule 100 mg PO DAILY 02/04/25 02/04/25 History hydroxyzine HCl 50 mg tablet 50 mg PO TID PRN anxiety 02/04/25 02/04/25 History lamotrigine 25 mg tablet 25 mg PO DAILY 02/04/25 02/04/25 History melatonin 3 mg tablet 9 mg PO BEDTIME 02/04/25 02/04/25 History metoprolol tartrate 25 mg tablet 25 mg PO DAILY 02/04/25 02/04/25 History midodrine 2.5 mg tablet 2.5 mg PO NEEDED PRN SBP<100 02/04/25 02/04/25 History olanzapine 10 mg tablet 10 mg PO BID 02/04/25 02/04/25 History pantoprazole 40 mg tablet,delayed 40 mg PO BID 02/04/25 02/04/25 History release sertraline 100 mg tablet 200 mg PO DAILY 02/04/25 02/04/25 History sevelamer carbonate 800 mg tablet 800 mg PO QIDWMHS 02/04/25 02/04/25 History sodium zirconium cyclosilicate 5 5 g PO DAILY 02/04/25 02/04/25 History gram oral powder packet ([facility]) trazodone 50 mg tablet 50 mg PO BEDTIME 02/04/25 02/04/25 History Allergies Allergies Allergy/AdvReac Type Severity Reaction Status Date / Time No Known Allergies Allergy Verified 02/04/25 14:00 Mental Status Exam Mental Status Exam Patient Appearance: Fatigued, Disheveled and Unkempt Patient Orientation: Person, Place, Time and Situation Level of Consciousness: Awake, Appropriate, Alert and Follows Commands Patient Behavior: Appropriate, Guarded, Cooperative, Anxious, Fatigued and Good Eye Contact Mood Description: Constricted, Depressed and Anxious (report by patient) Affect Description: Calm, Constricted, Depressed and Anxious Patient Cognition Impaired: No Ability to Follow Directions: Good Speech Pattern: Clear, Impoverished and Soft-Spoken Memory Description: Normal for Patient Hallucinations: None Delusions: Ideas of Reference (reports in past not at this moment) Thought Process: Goal Oriented Thought Content: positive for Flight of Ideas, positive for Poverty of Content and positive for Suicidal Ideation (no current intent, wants help) Depressive Symptoms: Increased Anxiety, Difficulty Sleeping, Loss of Int. in Activity, Feelings of Worthlessness, Hopelessness, Thoughts of /Suicide and Loss of Energy Abnormal Motor Activity Signs and Symptoms: Tremors (orofacial mvts and hand movements suggestive of possible TD) Judgement: Fair (limited to fair) Assessment & Plan Assessment & Plan (1) Major depression, recurrent, chronic: Status: Acute Code(s): F33.9 - Major depressive disorder, recurrent, unspecified (2) Major depressive disorder with current active episode: Status: Acute Qualifiers: Major depression episode severity: moderate Major depression recurrence: recurrent Qualified Code(s): F33.1 - Major depressive disorder, recurrent, moderate Code(s): F32.9 - Major depressive disorder, single episode, unspecified (3) Alcohol use disorder, severe, dependence: Status: Acute Code(s): F10.20 - Alcohol dependence, uncomplicated (4) Alcohol withdrawal: Status: Acute Qualifiers: Complication of substance-induced condition: uncomplicated Qualified Code(s): F10.930 - Alcohol use, unspecified with withdrawal, uncomplicated Code(s): F10.939 - Alcohol use, unspecified with withdrawal, unspecified (5) Nicotine dependence with current use: Status: Acute Code(s): F17.200 - Nicotine dependence, unspecified, uncomplicated (6) Cocaine use disorder: Status: Acute Code(s): F14.10 - Cocaine abuse, uncomplicated (7) Non compliance with medical treatment: Status: Acute Code(s): Z91.199 - Patient's noncompliance with other medical treatment and regimen due to unspecified reason (8) End stage renal disease: Status: Acute Code(s): N18.6 - End stage renal disease (9) Dialysis patient: Status: Acute Code(s): Z99.2 - Dependence on renal dialysis (10) Healthcare-associated pneumonia: Status: Acute Code(s): J18.9 - Pneumonia, unspecified organism (11) HTN (hypertension): Status: Chronic Qualifiers: Hypertension type: unspecified Qualified Code(s): I10 - Essential (primary) hypertension Code(s): I10 - Essential (primary) hypertension (12) CKD (chronic kidney disease) requiring chronic dialysis: Status: Acute Code(s): N18.6 - End stage renal disease; Z99.2 - Dependence on renal dialysis (13) Alcoholic fatty liver: Status: Acute Code(s): K70.0 - Alcoholic fatty liver (14) Tachycardia: Status: Acute Code(s): R00.0 - Tachycardia, unspecified (15) Anemia: Status: Acute Qualifiers: Anemia type: due to chronic kidney disease Chronic kidney disease stage: on chronic dialysis Qualified Code(s): N18.6 - End stage renal disease; D63.1 - Anemia in chronic kidney disease; Z99.2 - Dependence on renal dialysis Code(s): D64.9 - Anemia, unspecified (16) Hyperphosphatemia: Status: Acute Code(s): E83.39 - Other disorders of phosphorus metabolism (17) COPD (chronic obstructive pulmonary disease): Status: Acute Qualifiers: COPD type: unspecified COPD Qualified Code(s): J44.9 - Chronic obstructive pulmonary disease, unspecified Code(s): J44.9 - Chronic obstructive pulmonary disease, unspecified (18) Bifascicular block: Status: Chronic Code(s): I45.2 - Bifascicular block Plan per medicine Patient educated on: diagnosis, medication risk/benefits, substance abuse, therapeutic strategies and medical condition Guardian/Caregiver educated on: diagnosis, medication risk/benefits, substance abuse, therapeutic strategies and medical condition Informed Consent: understands and further education needed Reason for continued inpatient stay Substantial Risk for: harm to self, inability to function, med/psych decompensation and other (non-adhering to treatment and multiple medical comorbidities including CKD need for dialysis) Statement Statement: I have reviewed the history and physical and performed a pertinent examination on my patient. No changes have occurred unless specified. If the History and Physical was not performed prior to admission, the Hospitalist's service will be consulted for completing the admission physical. Time Spent With Patient Time: Total time managing care of this patient today __75__ minutes.
[2025-02-05] MEDS: Sevelamer Carbonate Tablet 800 MG TABLET PO ×3 (09:11→20:19)
[2025-02-05] MEDS: Aspirin Enteric Coated 81 MG TABLET.DR PO (09:11)
--- NOTE | 2025-02-05 12:01 | P.CONNP_ITS ---
History of Present Illness Reason for Consult Consult date: 02/05/25 Reason for consult: ESRD Chief Complaint Chief complaint: depression... very depressed... like 12/03 History of Present Illness Narrative: 65-year-old male with PMH of hypertension, ESRD due to unknown reasons currently on maintenance hemodialysis TTS through right arm AV fistula is admitted to the psych unit due to severe depression. He usually gets his dialysis sessions at [place], [place] last session was on Sunday. He usually tolerates the sessions very well except for occasional cramps. Nephrology is consulted to initiate maintenance hemodialysis while he is hospitalized. Review of Systems Review of Systems Const : no body aches, no chills, no excessive sweating and no fatigue Eyes: no blurry vision and no change in vision ENT: no bleeding gums and no change in voice, no dizziness Card: no chest pain, no shortness of breath, no orthopnea, no PND Resp: no cough, no excessive phlegm production, no SOB GI: no abdominal pain and no nausea, no vomiting : no hematuria, no urinary frequency and no difficulty voiding Musc: no abnormal gait, no bone pain Neuro: no abnormal movements, no weakness, no dizziness, no abnormal gait and no behavioral changes Psych: Changes in mood+, depressed mood+ Endo: no change in body appearance, no cold intolerance, no excessive sweating and no fatigue PMFSH Past Medical History Medical History (Updated 02/05/25 @ 12:05 by Cristian Tejada MD) Alcohol withdrawal Non compliance with medical treatment Social History Social History Household Members: None Housing: Apartment Do you presently have visiting nurse or other home services: No Comment: 5 min check. Patient Tobacco Use Status: Current everyday Tobacco user Tobacco use type: Cigarette Cigarette Packs Per Day: 1 Cigarettes Per Day: 20.0 Smoked in Last 30 Days: Yes e-Cigarette/Vaping Use: Never Used Patient Interested in Nicotine Replacement: Yes Patient Given Instructions on How to Stop Smoking: Yes Date Education Initiated: 02/04/25 Second Hand Smoke Exposure: No Currently Displaying Signs/Symptoms of Drug Intoxication Withdrawal: No Have you been hit, kicked, punched, or otherwise hurt by someone within the past year? If so, by whom?: No Do you feel safe in your current relationship?: Yes Is there a partner from a previous relationship who is making you feel unsafe now?: No Are you made to feel afraid or neglected: No Advance Directives: No Advance Directives Information Provided: No Do you have thoughts of harming others: None Do you have a plan to hurt others: No Plan Recently lost weight without trying: No Nutrition Risks: No Nutritional Risk Poor oral hygiene: No Meds Allergies Allergy/AdvReac Type Severity Reaction Status Date / Time No Known Allergies Allergy Verified 02/04/25 14:00 Active Medications: Current Medications Acetaminophen (Acetaminophen 325 Mg Tablet) 650 mg PO Q6H PRN PRN Reason: Headache/Pain, Scale 1-10 Al Hydroxide/Mg Hydroxide (Magnesium Hydrox/Alum Hydrox 30 Ml Oral.Susp) 30 ml PO Q6H PRN PRN Reason: Heartburn/Nausea Aspirin (Aspirin Enteric Coated 81 Mg Tablet.) 81 mg PO DAILY [facility] Last Admin: 02/05/25 09:11 Dose: 81 mg Atorvastatin Calcium (Atorvastatin Calcium 80 Mg Tablet) 80 mg PO DAILY [facility] Last Admin: 02/05/25 09:13 Dose: 80 mg Carvedilol (Carvedilol 12.5 Mg Tablet) 12.5 mg PO BID [facility]; Protocol Clopidogrel Bisulfate (Clopidogrel Bisulfate 75 Mg Tablet) 75 mg PO DAILY [facility] Last Admin: 02/05/25 09:13 Dose: 75 mg Doxycycline Monohydrate (Doxycycline Monohydrate 100 Mg Capsule) 100 mg PO Q12H [facility] Stop: 02/14/25 06:01 Last Admin: 02/05/25 06:18 Dose: 100 mg Folic Acid (Folic Acid 1 Mg Tablet) 1 mg PO DAILY [facility] Last Admin: 02/05/25 09:13 Dose: 1 mg Hydroxyzine HCl (Hydroxyzine Hcl 50 Mg Tablet) 50 mg PO TID PRN PRN Reason: Anxiety Lamotrigine (Lamotrigine 25 Mg Tablet) 25 mg PO DAILY [facility] Last Admin: 02/05/25 09:11 Dose: 25 mg Lorazepam (Lorazepam 1 Mg Tablet) 1 mg PO Q2H PRN PRN Reason: CIWA 8-11 Lorazepam (Lorazepam 1 Mg Tablet) 2 mg PO Q2H PRN PRN Reason: CIWA 12-15 Last Admin: 02/04/25 20:36 Dose: 2 mg Lorazepam (Lorazepam 1 Mg Tablet) 3 mg PO Q2H PRN PRN Reason: CIWA > 15, and call Melatonin (Melatonin 3 Mg Tablet) 9 mg PO BEDTIME [facility] Last Admin: 02/04/25 20:36 Dose: 9 mg Metoprolol Tartrate (Metoprolol Tartrate 25 Mg Tablet) 25 mg PO DAILY [facility]; Protocol Last Admin: 02/05/25 09:11 Dose: 25 mg Midodrine (Midodrine Hcl 2.5 Mg Tablet) 2.5 mg PO DAILY PRN PRN Reason: SBP<100 Olanzapine (Olanzapine 10 Mg Tablet) 10 mg PO BID [facility] Last Admin: 02/05/25 09:13 Dose: 10 mg Sertraline HCl (Sertraline Hcl 100 Mg Tablet) 200 mg PO DAILY [facility] Last Admin: 02/05/25 09:13 Dose: 200 mg Sevelamer Carbonate (Sevelamer Carbonate Tablet 800 Mg Tablet) 800 mg PO QIDWMHS [facility] Last Admin: 02/05/25 09:11 Dose: 800 mg Sodium Zirconium Cyclosilicate (Sodium Zirconium Cyclosilicate 5 Gm Powd.Pack) 5 gm PO DAILY@0700 [facility] Thiamine HCl (Thiamine Hcl 100 Mg Tablet) 100 mg PO DAILY [facility] Last Admin: 02/05/25 09:13 Dose: 100 mg Trazodone HCl (Trazodone Hcl 50 Mg Tablet) 50 mg PO BEDTIME MRX1 PRN PRN Reason: Insomnia Home Medications ?Medication ?Instructions ?Recorded ?Confirmed ?Last Taken ?Type acetaminophen 500 mg tablet 500 mg PO Q6H PRN pain 03/1902/04/25 Unknown History aspirin 81 mg tablet,delayed 81 mg PO DAILY 02/04/25 1 04/06/24 Unknown History release atorvastatin 80 mg tablet 80 mg PO DAILY 02/04/2501/24 Unknown History brexpiprazole 3 mg tablet (Rexulti) 3 mg PO DAILY 01/2402/04/25 Unknown History carvedilol 12.5 mg tablet 12.5 mg PO BIDWMEAL 02/04/25 02/04/25 Unknown History clopidogrel 75 mg tablet 75 mg PO DAILY 02/04/2501/24 Unknown History folic acid 1 mg tablet 1 mg PO DAILY 02/04/2502/04 Unknown History gabapentin 100 mg capsule 100 mg PO DAILY 02/04/2503/19 Unknown History hydroxyzine HCl 50 mg tablet 50 mg PO TID PRN anxiety 02/04/25 02/04/25 Unknown History lamotrigine 25 mg tablet 25 mg PO DAILY 02/04/2501/24 Unknown History melatonin 3 mg tablet 9 mg PO BEDTIME 02/04/2503/19 Unknown History metoprolol tartrate 25 mg tablet 25 mg PO DAILY 02/04/25 Unknown History midodrine 2.5 mg tablet 2.5 mg PO NEEDED PRN SBP< 100 02/04/25 02/04/25 Unknown History olanzapine 10 mg tablet 10 mg PO BID 02/04/25 Unknown History pantoprazole 40 mg tablet,delayed 40 mg PO BID 5 02/04/25 Unknown History release sertraline 100 mg tablet 200 mg PO DAILY 02/04/2503/19 Unknown History sevelamer carbonate 800 mg tablet 800 mg PO QIDWMHS 02/04/25 Unknown History sodium zirconium cyclosilicate 5 5 g PO DAILY 02/04/25 02/04/25 Unknown History gram oral powder packet ([facility]) trazodone 50 mg tablet 50 mg PO BEDTIME 02/04/25 Unknown History Physical Exam Vital Signs: Last Vital Signs Temp 98.2 F 02/05/25 08:00 Pulse 102 H 02/05/25 09:11 Resp 17 02/05/25 08:00 BP 142/85 H 02/05/25 09:11 Pulse Ox 96 02/05/25 08:00 O2 Del Method Room Air 02/05/25 08:00 BMI result Body Mass Index 25.6 General: Elderly male in no acute distress, looking much older for his age Nutritional Appearance: well nourished and normal weight Eyes: appearance normal, both eyes and all related structures; Alignment and Position: alignment normal and position normal Neck: No lymphadenopathy, no thyromegaly Resp: bilateral air entry equal, occasional added sounds present Cardio: Regular rate, regular rhythm; Heart sounds: S1 normal heart sound present and S2 normal heart sound present GI: soft, nontender, no guarding, no hepatosplenomegaly : bladder normal to inspection, bladder normal to palpation, no renal angle tenderness Skin: no rashes or lesions noted and elasticity normal Neuro: oriented to person, oriented to place, oriented to time and moves all extremities Results Lab Results 02/05/25 07:16 Lab results: Chemistry 02/05/25 07:16 Sodium 140 Potassium 4.3 Carbon Dioxide 24 BUN 36 H Creatinine 7.76 H* Calcium 9.1 Phosphorus 4.3 Assessment and Plan (1) End stage renal disease: Status: Acute (2) Anemia: Status: Acute (3) Hyperphosphatemia: Status: Acute Plan 1. ESRD on maintenance HD HD schedule: TTS, last session: Sunday Access: Right arm fistula, good thrill Volume Status: below dry weight HD today with goals: duration/ UF: 3.5 hrs, 2K bath, UF to dry weight 2. Electrolyte Management: Hyperkalemia: Potassium seems to be much better, can do Lokelma as needed instead of daily Hypocalcemia: We will get Vitamin D level and PTH levels Hyperphosphatemia: continue sevelamer 800 mg TID with meals dietary phosphate restriction less than 1g/day 3. Anemia of ESRD: We will get Hb , Ferritin: Iron levels: TIBC: We will decide IRAIS dosing based on the labs 4. Hypertension: continue carvedilol 12.5 mg b.i.d to be given after dialysis on TTS Thanks for your consult, we will continue to follow up this patient along with you. Procedures Date of Service Date of Service: 02/05/25
--- NOTE | 2025-02-05 13:57 | HO.PSYCHPN ---
Subjective Subjective Date of Service: 02/05/25 Subjective Notes: Thompson Warning and Conditional Voluntary Interim History: ESRD on Dialysis, extensive medical comorbidities Medication Compliance: Yes (while in hospital setting, said to not be fully adherent in community) Attending Groups: No Review of Systems Acute medical concerns: Yes Dialysis today Review of Systems Review of Systems Denies any shortness of breath, chest pain, headaches, dysuria, abdominal pain or discomfort, nausea, vomiting or diarrhea. Denies fever or chills. Yes Other (limited historian, appears to minimize) Constitutional: Reports difficulty sleeping, Reports fatigue, Reports lethargy and Reports other (recent hospital acquired pneumonia noted by ED and prescribed Doxicycline) Cardiovascular: Reports syncope Respiratory: Reports other (no respiratory difficulty-has copd) Reports Neuro-related abnormal movements, Reports confusion (episodes of AMS, last one preceding admission), Reports syncope and Reports tremor(s) Psychiatric: Reports as per HPI, Reports abnormal sleep pattern, Reports anxiety, Reports confusion (episodes of AMS, last one preceding admission), Reports depression, Reports hopelessness, Reports anhedonia, Reports suicidal ideation and Reports other (endorses past symptoms suggesting psychotic episode) Endocrine: Reports fatigue Mental Status Exam Mental Status Exam Patient Appearance: Disheveled and Unkempt Patient Orientation: Person, Place, Time and Situation Level of Consciousness: Awake, Drowsy (in bed, seen early today before dialysis) and Follows Commands Patient Behavior: Appropriate (calm, in bed, seems a bit slowed down ?sleepy), Guarded, Cooperative, Anxious, Sedated and Fatigued Mood Description: Calm, Constricted, Depressed and Anxious (report by patient) Affect Description: Calm, Constricted, Depressed and Anxious Patient Cognition Impaired: No Ability to Follow Directions: Good Speech Pattern: Impoverished, Appropriate and Soft-Spoken Memory Description: Normal for Patient (not assessed today) Hallucinations: None Delusions: Not Present (none overt, limited assessment) and Ideas of Reference (endorsed in past (during 02/04 assessment)) Thought Process: Linear (concrete answers) Thought Content: positive for [place], positive for Poverty of Content, positive for Slowed Thinking and positive for Suicidal Ideation Depressive Symptoms: Increased Anxiety, Diff. Making Decisions, Difficulty Sleeping, Changes in Appetite, Hopelessness, Unhappiness, Increased Fatigue, Thoughts of /Suicide and Loss of Energy Judgement: Fair (limited to fair) Diagnostics Vital Signs (24Hr): Vital Signs - 24 hr 11/12/25 14:00 02/04/25 18:52 02/04/25 20:00 Temperature 99.5 F 99.9 F 99.3 F Pulse Rate 108 H 89 Respiratory Rate 18 16 Blood Pressure 120/74 130/65 Pulse Oximetry 96 96 Oxygen Delivery Method Room Air Room Air 02/05/25 00:00 02/05/25 03:59 02/05/25 08:00 Temperature 98.2 F 98.3 F 98.2 F Pulse Rate 84 80 102 H Respiratory Rate 14 16 17 Blood Pressure 123/85 138/86 142/85 H Pulse Oximetry 98 95 96 Oxygen Delivery Method Room Air Room Air Room Air 02/05/25 09:11 Temperature Pulse Rate 102 H Respiratory Rate Blood Pressure 142/85 H Pulse Oximetry Oxygen Delivery Method BMI result Body Mass Index 25.6 Labs 02/05/25 07:16 Labs: Laboratory Results - last 48 hr 02/05/25 07:16 Sodium 140 Potassium 4.3 Chloride 104 Carbon Dioxide 24 Anion Gap 16 BUN 36 H Creatinine 7.76 H* Estim Creat Clear Calc 9.4 Estimated GFR 7 Random Glucose 103 Estimat Average Glucose 94 Hemoglobin A1c % 4.9 Calcium 9.1 Phosphorus 4.3 Total Bilirubin 0.4 AST 16 ALT 11 Alkaline Phosphatase 242 H Total Protein 6.9 Albumin 4.1 Triglycerides 109 Cholesterol 194 LDL Cholesterol, Calc 90 HDL Cholesterol 83 Medications Medications Current Medications Acetaminophen (Acetaminophen 325 Mg Tablet) 650 mg PO Q6H PRN PRN Reason: Headache/Pain, Scale 1-10 Al Hydroxide/Mg Hydroxide (Magnesium Hydrox/Alum Hydrox 30 Ml Oral.Susp) 30 ml PO Q6H PRN PRN Reason: Heartburn/Nausea Aspirin (Aspirin Enteric Coated 81 Mg Tablet.) 81 mg PO DAILY [facility] Last Admin: 02/05/25 09:11 Dose: 81 mg Atorvastatin Calcium (Atorvastatin Calcium 80 Mg Tablet) 80 mg PO DAILY [facility] Last Admin: 02/05/25 09:13 Dose: 80 mg Carvedilol (Carvedilol 12.5 Mg Tablet) 12.5 mg PO BID [facility]; Protocol Clopidogrel Bisulfate (Clopidogrel Bisulfate 75 Mg Tablet) 75 mg PO DAILY [facility] Last Admin: 02/05/25 09:13 Dose: 75 mg Doxycycline Monohydrate (Doxycycline Monohydrate 100 Mg Capsule) 100 mg PO Q12H [facility] Stop: 02/14/25 06:01 Last Admin: 02/05/25 06:18 Dose: 100 mg Folic Acid (Folic Acid 1 Mg Tablet) 1 mg PO DAILY [facility] Last Admin: 02/05/25 09:13 Dose: 1 mg Hydroxyzine HCl (Hydroxyzine Hcl 50 Mg Tablet) 50 mg PO TID PRN PRN Reason: Anxiety Lamotrigine (Lamotrigine 25 Mg Tablet) 25 mg PO DAILY [facility] Last Admin: 02/05/25 09:11 Dose: 25 mg Lorazepam (Lorazepam 1 Mg Tablet) 1 mg PO Q2H PRN PRN Reason: CIWA 8-11 Lorazepam (Lorazepam 1 Mg Tablet) 2 mg PO Q2H PRN PRN Reason: CIWA 12-15 Last Admin: 02/04/25 20:36 Dose: 2 mg Lorazepam (Lorazepam 1 Mg Tablet) 3 mg PO Q2H PRN PRN Reason: CIWA > 15, and call Melatonin (Melatonin 3 Mg Tablet) 9 mg PO BEDTIME [facility] Last Admin: 02/04/25 20:36 Dose: 9 mg Metoprolol Tartrate (Metoprolol Tartrate 25 Mg Tablet) 25 mg PO BID [facility]; Protocol Midodrine (Midodrine Hcl 2.5 Mg Tablet) 2.5 mg PO DAILY PRN PRN Reason: SBP<100 Olanzapine (Olanzapine 10 Mg Tablet) 10 mg PO BID [facility] Last Admin: 02/05/25 09:13 Dose: 10 mg Sertraline HCl (Sertraline Hcl 100 Mg Tablet) 200 mg PO DAILY [facility] Last Admin: 02/05/25 09:13 Dose: 200 mg Sevelamer Carbonate (Sevelamer Carbonate Tablet 800 Mg Tablet) 800 mg PO QIDWMHS [facility] Last Admin: 02/05/25 13:06 Dose: Not Given Sodium Zirconium Cyclosilicate (Sodium Zirconium Cyclosilicate 5 Gm Powd.Pack) 5 gm PO DAILY@0700 PRN PRN Reason: Hyperkalemia Thiamine HCl (Thiamine Hcl 100 Mg Tablet) 100 mg PO DAILY [facility] Last Admin: 02/05/25 09:13 Dose: 100 mg Trazodone HCl (Trazodone Hcl 50 Mg Tablet) 50 mg PO BEDTIME MRX1 PRN PRN Reason: Insomnia Allergies Allergies Allergy/AdvReac Type Severity Reaction Status Date / Time No Known Allergies Allergy Verified 02/04/25 14:00 Assessment & Plan Assessment & Plan (1) Major depressive disorder with current active episode: Qualifiers: Major depression recurrence: recurrent Major depression episode severity: moderate Qualified Code(s): F33.1 - Major depressive disorder, recurrent, moderate Status: Acute Code(s): F32.9 - Major depressive disorder, single episode, unspecified (2) Major depression, recurrent, chronic: Status: Acute Code(s): F33.9 - Major depressive disorder, recurrent, unspecified (3) Alcohol use disorder, severe, dependence: Status: Acute Code(s): F10.20 - Alcohol dependence, uncomplicated Assessment and Plan: ciwa, groups,motivational interviewing/psychoeducation (4) Alcohol withdrawal: Qualifiers: Complication of substance-induced condition: uncomplicated Qualified Code(s): F10.930 - Alcohol use, unspecified with withdrawal, uncomplicated Status: Acute Code(s): F10.939 - Alcohol use, unspecified with withdrawal, unspecified (5) Nicotine dependence with current use: Status: Acute Code(s): F17.200 - Nicotine dependence, unspecified, uncomplicated Assessment and Plan: NRT if agrees, groups,education (6) Cocaine use disorder: Status: Acute Code(s): F14.10 - Cocaine abuse, uncomplicated Assessment and Plan: groups,motivational interviewing/psychoeducation (7) Non compliance with medical treatment: Status: Acute Code(s): Z91.199 - Patient's noncompliance with other medical treatment and regimen due to unspecified reason (8) End stage renal disease: Status: Acute Code(s): N18.6 - End stage renal disease (9) Dialysis patient: Status: Acute Code(s): Z99.2 - Dependence on renal dialysis (10) Healthcare-associated pneumonia: Status: Acute Code(s): J18.9 - Pneumonia, unspecified organism Assessment and Plan: Doxicycline re-ordered (started in ED)and will be evaluated by medical team/medical OCCUPATIONAL MEDICINE OFFICER (11) HTN (hypertension): Qualifiers: Hypertension type: unspecified Qualified Code(s): I10 - Essential (primary) hypertension Status: Chronic Code(s): I10 - Essential (primary) hypertension Assessment and Plan: per medical team, cont meds (12) CKD (chronic kidney disease) requiring chronic dialysis: Status: Acute Code(s): N18.6 - End stage renal disease; Z99.2 - Dependence on renal dialysis (13) Alcoholic fatty liver: Status: Acute Code(s): K70.0 - Alcoholic fatty liver (14) Tachycardia: Status: Acute Code(s): R00.0 - Tachycardia, unspecified (15) Anemia: Qualifiers: Anemia type: due to chronic kidney disease Chronic kidney disease stage: on chronic dialysis Qualified Code(s): N18.6 - End stage renal disease; D63.1 - Anemia in chronic kidney disease; Z99.2 - Dependence on renal dialysis Status: Acute Code(s): D64.9 - Anemia, unspecified (16) Hyperphosphatemia: Status: Acute Code(s): E83.39 - Other disorders of phosphorus metabolism (17) COPD (chronic obstructive pulmonary disease): Qualifiers: COPD type: unspecified COPD Qualified Code(s): J44.9 - Chronic obstructive pulmonary disease, unspecified Status: Acute Code(s): J44.9 - Chronic obstructive pulmonary disease, unspecified (18) Bifascicular block: Status: Chronic Code(s): I45.2 - Bifascicular block Plan Psychiatric as above noted Medicine rounds by medical OCCUPATIONAL MEDICINE OFFICER and coordination of care with medical and nephrology medicine Reason for continued inpatient stay Substantial Risk for: harm to self, inability to function, rapid decompensation and med/psych decompensation Time Spent With Patient Time: Total time managing care of this patient today 25____ minutes.
--- NOTE | 2025-02-05 18:42 | PC.NURSE ---
Pt is alert and oriented x4. Pleasant and engaged on approach. Endorses anxiety at 7/10 and depression at 5/10. Denies SI,HI,AVH. Takes meds as prescribed. CVC in R.chest, dressing dry and intact. AV fistula in R.arm, positive B/T. Out to dialysis about 10:45. Denies pain. After back from dialysis consumed late lunch. His BP 92/55, P 87 at 15:30. Provider notified. BP re-check at 16:30 for 81/52, P 101. New orders, PRN Midodrine and waiting for IV Albumin. No symptoms noted. BP 90/51, P 89 at 18:00. house calls nurse practitioner Dr Klein updated. Will continue to monitor.
[2025-02-05 19:43] LABS: MANUAL DIFF FLAG NO
[2025-02-05 19:54] LABS: Hematocrit 29.7 % (42.0-52.0); Hemoglobin 9.2 g/dl (14.0-18.0); Imm Gran Abs Auto 0.16 X10*3/uL (0.00-0.03); Imm Gran Pct Auto 1.6 % (0.0-0.4); Lymphocytes Absolute Auto 1.5 X10*3/uL (1.2-4.9); Mean Corpuscular HGB Conc 31.0 g/dl (31.0-36.0); Mean Corpuscular Hemoglobin 29.7 pg (27.0-33.0); Mean Corpuscular Volume 95.8 fL (80.0-98.0); NRBC Abs Auto 0.000 X10*3/uL (0.0-0.012); NRBC Pct Auto 0.0 /100WBC (0.0-0.2); Platelet Count 437 X10*3/uL (160-400); Red Blood Count 3.10 X10*6/uL (4.60-5.80); White Blood Count 9.9 X10*3/uL (4.8-10.8)
[2025-02-05 20:11] LABS: Iron 65 mcg/dL (45-160); Percent Iron Saturation 29 % (15-50); Total Iron Binding Capacity 224 mcg/dL (228-428); Unsaturated Iron Binding 159 ug/dL
[2025-02-05] MEDS: Albumin Human 25 % 50 ML 100 ML IV (20:18)
[2025-02-05 20:58] LABS: Ferritin 1561 ng/mL (20-250)
--- NOTE | 2025-02-05 23:16 | PC.NURSE ---
2205- Pt automatic BP 82/50 left arm, manual 84/54 left arm pulse 91. Pt is A/Ox [address] Roberto Dixon and Dr. Klein notified via [place] text.
--- NOTE | 2025-02-05 23:23 | PC.NURSE ---
Provider Julia to the unit to evaluate the pat. IV NS bolus 250 ml running and Midodrine 10mg given.
[2025-02-06] VITALS (9 sets, daily range): BP systolic 103–149; BP diastolic 54–80; PULSE 64–110; RESP 14–18; TEMP 36.7–37.2; O2SAT 94–98
--- NOTE | 2025-02-06 00:33 | PM.EVENT ---
Event Note Date of Service: 02/06/25 Event Note: Pt hypotensive after receiving dialysis at 1045am. new ordered added, midodrine, IV albumin. pt evaluated bedisde, alert and oriented, asx. no SOB, dizzness or lightheadedness. denies hypotension post dialysis in the past. no fever, chills, nausea, vomting, URI sx or urinary sx. BP improving with albumin, continue to montior and order for PRN midodrine is in. day team to f/u in AM. Time Spent With Patient Time: Total time managing care of this patient today ____ minutes.
--- NOTE | 2025-02-06 08:20 | P.PNIM_ITS ---
Subjective Subjective Date of Service: 02/06/25 Interval History: Follow up post dialysis hypotension. Patient followed by Nephrology- recommendations appreciated. On exam he reports that he feels much better. Sitting at side of bed, reports he ate breakfast this morning. Blood pressure slightly elevated prior to morning meds. He denies any shortness of breath, dizziness, lightheadedness, chest pain or any other concerning symptoms. Review of Systems Patient has no acute medical complaints at this time All other systems are reviewed and are negative Physical Exam 2 Exam: Exam: Alert and oriented X3, calm and cooperative. Answers questions. Neuro: CN II-X11 intact, no deficits Cardiac: S1 S2 RRR, No ectopy Pulmonary: lungs clear to auscultation, No increased WOB. Abdominal: BS active in all 4 quadrants, no guarding or tenderness MSK: Ambulating at baseline : Deferred Extremities: No edema in lower extremities Psych: Mood stable, Quiet and cooperative. Skin: Warm and dry, Intact. Right AV fistula and PermaCath right chest Vital Signs: Vital Signs: Last Vital Signs Temp 98.4 F 02/06/25 06:00 Pulse 96 02/06/25 06:00 Resp 16 02/06/25 06:00 BP 103/54 L 02/06/25 06:00 Pulse Ox 96 02/06/25 06:00 O2 Del Method Room Air 02/06/25 06:00 BMI result Body Mass Index 25.6 Objective Data Active Medications Acetaminophen (Acetaminophen 325 Mg Tablet) 650 mg PO Q6H PRN PRN Reason: Headache/Pain, Scale 1-10 Last Admin: 02/05/25 17:59 Dose: 650 mg Documented By: MED Al Hydroxide/Mg Hydroxide (Magnesium Hydrox/Alum Hydrox 30 Ml Oral.Susp) 30 ml PO Q6H PRN PRN Reason: Heartburn/Nausea Aspirin (Aspirin Enteric Coated 81 Mg Tablet.) 81 mg PO DAILY [facility] Last Admin: 02/05/25 09:11 Dose: 81 mg Documented By: MED Atorvastatin Calcium (Atorvastatin Calcium 80 Mg Tablet) 80 mg PO DAILY [facility] Last Admin: 02/05/25 09:13 Dose: 80 mg Documented By: MED Carvedilol (Carvedilol 12.5 Mg Tablet) 12.5 mg PO BID [facility]; Protocol Last Admin: 02/05/25 16:50 Dose: Not Given Documented By: MED Non-Admin Reason: Decreased Blood Pressure Clopidogrel Bisulfate (Clopidogrel Bisulfate 75 Mg Tablet) 75 mg PO DAILY [facility] Last Admin: 02/05/25 09:13 Dose: 75 mg Documented By: MED Doxycycline Monohydrate (Doxycycline Monohydrate 100 Mg Capsule) 100 mg PO Q12H [facility] Stop: 02/14/25 06:01 Last Admin: 02/06/25 06:32 Dose: 100 mg Documented By: WENDIE Folic Acid (Folic Acid 1 Mg Tablet) 1 mg PO DAILY [facility] Last Admin: 02/05/25 09:13 Dose: 1 mg Documented By: MED Hydroxyzine HCl (Hydroxyzine Hcl 50 Mg Tablet) 50 mg PO TID PRN PRN Reason: Anxiety Last Admin: 02/05/25 16:54 Dose: 50 mg Documented By: MED Lamotrigine (Lamotrigine 25 Mg Tablet) 25 mg PO DAILY [facility] Last Admin: 02/05/25 09:11 Dose: 25 mg Documented By: MED Lorazepam (Lorazepam 1 Mg Tablet) 1 mg PO Q2H PRN PRN Reason: CIWA 8-11 Lorazepam (Lorazepam 1 Mg Tablet) 2 mg PO Q2H PRN PRN Reason: CIWA 12-15 Last Admin: 02/04/25 20:36 Dose: 2 mg Documented By: WENDIE Lorazepam (Lorazepam 1 Mg Tablet) 3 mg PO Q2H PRN PRN Reason: CIWA > 15, and call Melatonin (Melatonin 3 Mg Tablet) 9 mg PO BEDTIME [facility] Last Admin: 02/05/25 20:19 Dose: 9 mg Documented By: NATALIE Metoprolol Tartrate (Metoprolol Tartrate 25 Mg Tablet) 25 mg PO BID [facility]; Protocol Last Admin: 02/05/25 21:02 Dose: Not Given Documented By: NATALIE Non-Admin Reason: held due to hypotension Midodrine (Midodrine Hcl 2.5 Mg Tablet) 2.5 mg PO DAILY PRN PRN Reason: SBP<100 Last Admin: 02/05/25 16:53 Dose: 2.5 mg Documented By: MED Midodrine (Midodrine Hcl 10 Mg Tablet) 10 mg PO TuThSa@1645 PRN PRN Reason: Dialysis hypotension Olanzapine (Olanzapine 10 Mg Tablet) 10 mg PO BID [facility] Last Admin: 02/05/25 20:19 Dose: 10 mg Documented By: NATALIE Sertraline HCl (Sertraline Hcl 100 Mg Tablet) 200 mg PO DAILY [facility] Last Admin: 02/05/25 09:13 Dose: 200 mg Documented By: MED Sevelamer Carbonate (Sevelamer Carbonate Tablet 800 Mg Tablet) 800 mg PO QIDWMHS [facility] Last Admin: 02/05/25 20:19 Dose: 800 mg Documented By: NATALIE Sodium Zirconium Cyclosilicate (Sodium Zirconium Cyclosilicate 5 Gm Powd.Pack) 5 gm PO DAILY@0700 PRN PRN Reason: Hyperkalemia Thiamine HCl (Thiamine Hcl 100 Mg Tablet) 100 mg PO DAILY [facility] Last Admin: 02/05/25 09:13 Dose: 100 mg Documented By: MED Trazodone HCl (Trazodone Hcl 50 Mg Tablet) 50 mg PO BEDTIME MRX1 PRN PRN Reason: Insomnia Labs 02/05/25 19:35 02/05/25 07:16 Labs: Laboratory Results - last 24 hr 02/05/25 02/05/25 02/06/25 07:16 19:35 00:52 MCV 95.8 MCH 29.7 MCHC 31.0 RDW 19.1 H Plt Count 437 H MPV 9.8 Immature Gran % (Auto) 1.6 H Neut % (Auto) 65.0 Lymph % (Auto) 14.7 L [place] % (Auto) 14.9 H Eos % (Auto) 2.9 Baso % (Auto) 0.9 Lymph # (Auto) 1.5 [place] # (Auto) 1.5 H Eos # (Auto) 0.3 Baso # (Auto) 0.1 Abs Immat Gran (auto) 0.16 H Absolute Neuts (auto) 6.5 Absolute Nucleated RBC 0.000 Nucleated RBC % (auto) 0.0 Estimat Average Glucose 94 Hemoglobin A1c % 4.9 Lactic Acid 1.0 Iron 65 TIBC 224 L % Saturation 29 Unsat Iron Binding 159 Ferritin 1561 H PTH Intact 2127.4 H Assessment and Plan (1) Hypotension of hemodialysis: Status: Acute Plan 65-year-old male with past medical history as below presented to [place] ED with increased depression and suicide ideation. Patient admitted for stabilization. Depression/anxiety/polysubstance abuse/ETOH dependence Treatment per psychiatric team GISSELLE caballero DC, no evidence of withdrawal ESRD on dialysis/anemia of chronic kidney disease/hypotension post dialysis Received albumin dose last evening Dialysis [facility] Followed by nephrology team Continue Renvela Hold Coreg prior to dialysis treatments on . Midodrine post dialysis Please notify hospitalist team with any concerns for unregulated blood pressure. Hypertension/hyperlipidemia/CAD Continue Coreg with parameters Continue atorvastatin and Plavix Continue daily aspirin Lipid level within normal limits Alcoholic fatty liver disease Stable liver functions BPH Not on medications COPD/smoker Not in acute exacerbation No home meds Encouraged smoking cessation History of GERD Not on medications Thank you for allowing me to participate in the care of this patient. Will follow with you, please notify medical provider with any changes in condition or concerns. Quality Stroke Does the patient have a stroke diagnosis?: No VTE Prior VTE?: No VTE Risk Level:: Medical - low VTE Device Contraindication: Treatment Not Indicated VTE Drug Contraindication: Treatment Not Indicated
[2025-02-06] MEDS: Sevelamer Carbonate Tablet 800 MG TABLET PO ×4 (08:53→20:56)
[2025-02-06] MEDS: Aspirin Enteric Coated 81 MG TABLET.DR PO (08:55)
--- NOTE | 2025-02-06 10:15 | P.PNNP_ITS ---
Subjective Subjective Date of Service: 02/06/25 Interval history: Became hypotensive post dialysis yesterday, treated with albumin and midodrine Physical Exam 2 Vital Signs: Vital Signs: Last Vital Signs Temp 98.4 F 02/06/25 08:00 Pulse 110 H 02/06/25 08:00 Resp 16 02/06/25 08:00 BP 149/80 H 02/06/25 08:54 Pulse Ox 98 02/06/25 08:00 O2 Del Method Room Air 02/06/25 08:00 BMI result Body Mass Index 25.6 General: not in any acute distress, lying in the bed Nutritional Appearance: Okay nourished and normal weight Eyes: appearance normal, both eyes and all related structures; Alignment and Position: alignment normal and position normal Neck: No lymphadenopathy, no thyromegaly Resp: bilateral air entry equal, no added sounds present Cardio: Regular rate, regular rhythm; Heart sounds: S1 normal heart sound present and S2 normal heart sound present GI: soft, nontender, no guarding, no hepatosplenomegaly : bladder normal to inspection, bladder normal to palpation, no renal angle tenderness Skin: no rashes or lesions noted and elasticity normal Neuro: alert, oriented x 3, moves all extremities Objective Data Labs 02/05/25 19:35 02/05/25 07:16 Labs: Laboratory Results - last 24 hr 02/05/25 02/06/25 19:35 00:52 WBC 9.9 RBC 3.10 L Hgb 9.2 L Hct 29.7 L MCV 95.8 MCH 29.7 MCHC 31.0 RDW 19.1 H Plt Count 437 H MPV 9.8 Immature Gran % (Auto) 1.6 H Neut % (Auto) 65.0 Lymph % (Auto) 14.7 L [place] % (Auto) 14.9 H Eos % (Auto) 2.9 Baso % (Auto) 0.9 Lymph # (Auto) 1.5 [place] # (Auto) 1.5 H Eos # (Auto) 0.3 Baso # (Auto) 0.1 Abs Immat Gran (auto) 0.16 H Absolute Neuts (auto) 6.5 Absolute Nucleated RBC 0.000 Nucleated RBC % (auto) 0.0 Lactic Acid 1.0 Iron 65 TIBC 224 L % Saturation 29 Unsat Iron Binding 159 Ferritin 1561 H PTH Intact 2127.4 H Procedures Date of Service Date of Service: 02/06/25 Assessment & Plan Assessment and plan (1) HTN (hypertension): Status: Chronic (2) End stage renal disease: Status: Acute (3) CKD (chronic kidney disease) requiring chronic dialysis: Status: Acute Plan 1. ESRD on maintenance HD HD schedule: TTS, last session: Access: Right arm fistula, good thrill Volume Status: below dry weight HD tomorrow with goals: duration/ UF: 3.5 hrs, 2K bath, we will reduce the UF due to hypotension 2. Electrolyte Management: Hyperkalemia: Potassium seems to be much better As needed Lok[place] Metabolic bone disorder: continue sevelamer 800 mg TID with meals dietary phosphate restriction less than 1g/day Pending Vitamin D level and elevated PTH levels 3. Anemia of ESRD: HGB 9 , Ferritin: 1560 Iron levels: 29 TIBC:224 Erythropoietin 5000 units subcutaneous 3 times a week 4. Hypertension: Given the patient has post dialysis hypotension would recommend holding dose of carvedilol on Sunday mornings until the dialysis is over. Stop metoprolol, do as needed midodrine 10mg for hypotension Time Spent With Patient Time: Total time managing care of this patient today ____ minutes.
--- NOTE | 2025-02-06 12:33 | HO.PSYCHPN ---
Subjective Subjective Date of Service: 02/06/25 Subjective Notes: Thompson Warning, Conditional Voluntary and 3 Day (today) Guardianship: No Medical Problems Affecting Mental Status: Yes Interim History: Became hypotensive post dialysis yesterday, treated with albumin and midodrine In better spirits, says depression now 09/02 talked about 3 day, doesn't want to retract and wants to leave on Sunday for unspecified reasons Ok with team speaking to family. No psychosis, seems better than yesterday, still constricted affect Medication Compliance: Yes (while in hospital setting, said to not be fully adherent w/ tx in community) Attending Groups: No Review of Systems Acute medical concerns: Yes Dialysis 3x week Review of Systems Review of Systems Denies any shortness of breath, chest pain, headaches, dysuria, abdominal pain or discomfort, nausea, vomiting or diarrhea. Denies fever or chills. Yes all other systems are reviewed and are negative, unobtainable due to endotracheal tube, Unobtainable due to mental condition, Unobtainable due to mental status and Other (limited historian, appears to minimize) Constitutional: Reports no additional constitutional complaints and Reports other (recent hospital acquired pneumonia noted by ED and prescribed Doxicycline--) Eyes: Reports as per HPI Reports as per HPI Cardiovascular: Reports as per HPI Respiratory: Reports no additional respiratory complaints and Reports other (no respiratory difficulty-has copd, recent dx HAP) Gastrointestinal: Reports as per HPI Musculoskeletal: Reports no additional musculoskeletal complaints Reports tremor(s) Comments: not evident Psychiatric: Reports as per HPI, Reports abnormal sleep pattern, Reports anxiety, Reports depression, Reports suicidal ideation (denies today) and Reports other (endorses past symptoms suggesting psychotic episode) Endocrine: Reports as per HPI Hematologic/Lymphatic: Reports as per HPI Mental Status Exam Mental Status Exam Patient Appearance: Disheveled (less) Patient Orientation: Person, Place, Time and Situation Level of Consciousness: Awake, Appropriate, Alert and Follows Commands Patient Behavior: Appropriate (calm, in bed, seems a bit slowed down ?sleepy) and Cooperative Mood Description: Calm, Constricted, Depressed and Anxious (report by patient) Affect Description: Constricted, Depressed and Anxious Patient Cognition Impaired: No Ability to Follow Directions: Good Speech Pattern: Impoverished and Soft-Spoken Memory Description: Normal for Patient (no gross impairment but variable (ams if no dyalisis)) Hallucinations: None Delusions: Not Present (none overt, limited assessment) and Ideas of Reference (endorsed experiencing in past at time of 02/04 assessment)) Thought Process: Linear (concrete answers) Thought Content: positive for [place], positive for Goal Oriented, positive for Poverty of Content and positive for Suicidal Ideation (denies today) Depressive Symptoms: Diff. Making Decisions, Difficulty Sleeping, Changes in Appetite and Loss of Energy Judgement: Fair (limited to fair) Diagnostics Vital Signs (24Hr): Vital Signs - 24 hr 02/05/25 15:30 02/05/25 16:30 02/05/25 16:50 Temperature 98.4 F 98.3 F Pulse Rate 87 101 H 101 H Respiratory Rate 17 18 Blood Pressure 92/55 L 81/52 L 81/52 L Pulse Oximetry 96 97 Oxygen Delivery Method Room Air Room Air 02/05/25 16:53 02/05/25 18:00 02/05/25 20:00 Temperature 99.0 F 99.9 F Pulse Rate 89 91 Respiratory Rate 17 18 Blood Pressure 81/52 L 90/51 L 90/55 L Pulse Oximetry 98 98 Oxygen Delivery Method Room Air Room Air 02/05/25 22:33 02/05/25 22:58 02/06/25 00:00 Temperature 99.6 F 98.4 F Pulse Rate 91 97 Respiratory Rate 18 18 Blood Pressure 82/50 L 84/54 L 119/64 Pulse Oximetry 96 97 Oxygen Delivery Method Room Air Room Air 02/06/25 02:00 02/06/25 04:00 02/06/25 06:00 Temperature 98.3 F 98.4 F 98.4 F Pulse Rate 89 91 96 Respiratory Rate 16 16 16 Blood Pressure 115/64 110/60 103/54 L Pulse Oximetry 98 97 96 Oxygen Delivery Method Room Air Room Air Room Air 02/06/25 08:00 02/06/25 08:54 02/06/25 10:00 Temperature 98.4 F 98.9 F Pulse Rate 110 H 64 Respiratory Rate 16 14 Blood Pressure 149/80 H 149/80 H 124/61 Pulse Oximetry 98 94 Oxygen Delivery Method Room Air Room Air BMI result Body Mass Index 25.6 Labs 02/05/25 19:35 02/05/25 07:16 Labs: Laboratory Results - last 48 hr 02/05/25 02/05/25 02/06/25 07:16 19:35 00:52 WBC 9.9 RBC 3.10 L Hgb 9.2 L Hct 29.7 L MCV 95.8 MCH 29.7 MCHC 31.0 RDW 19.1 H Plt Count 437 H MPV 9.8 Immature Gran % (Auto) 1.6 H Neut % (Auto) 65.0 Lymph % (Auto) 14.7 L [place] % (Auto) 14.9 H Eos % (Auto) 2.9 Baso % (Auto) 0.9 Lymph # (Auto) 1.5 [place] # (Auto) 1.5 H Eos # (Auto) 0.3 Baso # (Auto) 0.1 Abs Immat Gran (auto) 0.16 H Absolute Neuts (auto) 6.5 Absolute Nucleated RBC 0.000 Nucleated RBC % (auto) 0.0 Sodium 140 Potassium 4.3 Chloride 104 Carbon Dioxide 24 Anion Gap 16 BUN 36 H Creatinine 7.76 H* Estim Creat Clear Calc 9.4 Estimated GFR 7 Random Glucose 103 Estimat Average Glucose 94 Hemoglobin A1c % 4.9 Lactic Acid 1.0 Calcium 9.1 Phosphorus 4.3 Iron 65 TIBC 224 L % Saturation 29 Unsat Iron Binding 159 Ferritin 1561 H Total Bilirubin 0.4 AST 16 ALT 11 Alkaline Phosphatase 242 H Total Protein 6.9 Albumin 4.1 Triglycerides 109 Cholesterol 194 LDL Cholesterol, Calc 90 HDL Cholesterol 83 PTH Intact 2127.4 H Medications Medications Current Medications Acetaminophen (Acetaminophen 325 Mg Tablet) 650 mg PO Q6H PRN PRN Reason: Headache/Pain, Scale 1-10 Last Admin: 02/05/25 17:59 Dose: 650 mg Al Hydroxide/Mg Hydroxide (Magnesium Hydrox/Alum Hydrox 30 Ml Oral.Susp) 30 ml PO Q6H PRN PRN Reason: Heartburn/Nausea Aspirin (Aspirin Enteric Coated 81 Mg Tablet.) 81 mg PO DAILY [facility] Last Admin: 02/06/25 08:55 Dose: 81 mg Atorvastatin Calcium (Atorvastatin Calcium 80 Mg Tablet) 80 mg PO DAILY [facility] Last Admin: 02/06/25 08:54 Dose: 80 mg Carvedilol (Carvedilol 12.5 Mg Tablet) 12.5 mg PO TUTHSA@2100 [facility]; Protocol Carvedilol (Carvedilol 12.5 Mg Tablet) 12.5 mg PO SUMOWEFR@0900,2100 [facility]; Protocol Clopidogrel Bisulfate (Clopidogrel Bisulfate 75 Mg Tablet) 75 mg PO DAILY [facility] Last Admin: 02/06/25 08:55 Dose: 75 mg Doxycycline Monohydrate (Doxycycline Monohydrate 100 Mg Capsule) 100 mg PO Q12H [facility] Stop: 02/14/25 06:01 Last Admin: 02/06/25 06:32 Dose: 100 mg Epoetin Jono-epbx 3,000 unit/ (Epoetin Jono-epbx 2,000 unit) 5,000 unit SUBCUT [facility]@3527 [facility] Folic Acid (Folic Acid 1 Mg Tablet) 1 mg PO DAILY [facility] Last Admin: 02/06/25 08:54 Dose: 1 mg Hydroxyzine HCl (Hydroxyzine Hcl 50 Mg Tablet) 50 mg PO TID PRN PRN Reason: Anxiety Last Admin: 02/05/25 16:54 Dose: 50 mg Lamotrigine (Lamotrigine 25 Mg Tablet) 25 mg PO DAILY [facility] Last Admin: 02/06/25 08:55 Dose: 25 mg Lorazepam (Lorazepam 1 Mg Tablet) 1 mg PO Q2H PRN PRN Reason: CIWA 8-11 Lorazepam (Lorazepam 1 Mg Tablet) 2 mg PO Q2H PRN PRN Reason: CIWA 12-15 Last Admin: 02/04/25 20:36 Dose: 2 mg Lorazepam (Lorazepam 1 Mg Tablet) 3 mg PO Q2H PRN PRN Reason: CIWA > 15, and call MD Melatonin (Melatonin 3 Mg Tablet) 9 mg PO BEDTIME [facility] Last Admin: 02/05/25 20:19 Dose: 9 mg Midodrine (Midodrine Hcl 2.5 Mg Tablet) 2.5 mg PO DAILY PRN PRN Reason: SBP<100 Last Admin: 02/05/25 16:53 Dose: 2.5 mg Midodrine (Midodrine Hcl 10 Mg Tablet) 10 mg PO TuTa@1645 PRN PRN Reason: Dialysis hypotension Olanzapine (Olanzapine 10 Mg Tablet) 10 mg PO BID [facility] Last Admin: 02/06/25 08:54 Dose: 10 mg Sertraline HCl (Sertraline Hcl 100 Mg Tablet) 200 mg PO DAILY [facility] Last Admin: 02/06/25 08:55 Dose: 200 mg Sevelamer Carbonate (Sevelamer Carbonate Tablet 800 Mg Tablet) 800 mg PO QIDWMHS [facility] Last Admin: 02/06/25 08:53 Dose: 800 mg Sodium Zirconium Cyclosilicate (Sodium Zirconium Cyclosilicate 5 Gm Powd.Pack) 5 gm PO DAILY@0700 PRN PRN Reason: Hyperkalemia Thiamine HCl (Thiamine Hcl 100 Mg Tablet) 100 mg PO DAILY [facility] Last Admin: 02/06/25 08:54 Dose: 100 mg Trazodone HCl (Trazodone Hcl 50 Mg Tablet) 50 mg PO BEDTIME MRX1 PRN PRN Reason: Insomnia Allergies Allergies Allergy/AdvReac Type Severity Reaction Status Date / Time No Known Allergies Allergy Verified 02/04/25 14:00 Assessment & Plan Assessment & Plan (1) HTN (hypertension): Qualifiers: Hypertension type: unspecified Qualified Code(s): I10 - Essential (primary) hypertension Status: Chronic Code(s): I10 - Essential (primary) hypertension Assessment and Plan: per medical team, cont meds (2) End stage renal disease: Status: Acute Code(s): N18.6 - End stage renal disease (3) CKD (chronic kidney disease) requiring chronic dialysis: Status: Acute Code(s): N18.6 - End stage renal disease; Z99.2 - Dependence on renal dialysis (4) Major depression, recurrent, chronic: Status: Acute Code(s): F33.9 - Major depressive disorder, recurrent, unspecified (5) Alcohol use disorder, severe, dependence: Status: Acute Code(s): F10.20 - Alcohol dependence, uncomplicated Assessment and Plan: Not scoring on CIWA: will dc groups,motivational interviewing/psychoeducation (6) Alcohol withdrawal: Qualifiers: Complication of substance-induced condition: uncomplicated Qualified Code(s): F10.930 - Alcohol use, unspecified with withdrawal, uncomplicated Status: Acute Code(s): F10.939 - Alcohol use, unspecified with withdrawal, unspecified (7) Nicotine dependence with current use: Status: Acute Code(s): F17.200 - Nicotine dependence, unspecified, uncomplicated Assessment and Plan: NRT if agrees, groups,education (8) Cocaine use disorder: Status: Acute Code(s): F14.10 - Cocaine abuse, uncomplicated Assessment and Plan: groups,motivational interviewing/psychoeducation (9) Non compliance with medical treatment: Status: Acute Code(s): Z91.199 - Patient's noncompliance with other medical treatment and regimen due to unspecified reason (10) Dialysis patient: Status: Acute Code(s): Z99.2 - Dependence on renal dialysis (11) Healthcare-associated pneumonia: Status: Acute Code(s): J18.9 - Pneumonia, unspecified organism Assessment and Plan: Doxicycline re-ordered (started in ED)and will be evaluated by medical team/medical DIVERSITY INTERN (12) Alcoholic fatty liver: Status: Acute Code(s): K70.0 - Alcoholic fatty liver (13) Tachycardia: Status: Acute Code(s): R00.0 - Tachycardia, unspecified (14) Anemia: Qualifiers: Anemia type: due to chronic kidney disease Chronic kidney disease stage: on chronic dialysis Qualified Code(s): N18.6 - End stage renal disease; D63.1 - Anemia in chronic kidney disease; Z99.2 - Dependence on renal dialysis Status: Acute Code(s): D64.9 - Anemia, unspecified (15) Hyperphosphatemia: Status: Acute Code(s): E83.39 - Other disorders of phosphorus metabolism (16) COPD (chronic obstructive pulmonary disease): Qualifiers: COPD type: unspecified COPD Qualified Code(s): J44.9 - Chronic obstructive pulmonary disease, unspecified Status: Acute Code(s): J44.9 - Chronic obstructive pulmonary disease, unspecified (17) Bifascicular block: Status: Chronic Code(s): I45.2 - Bifascicular block Plan 1. ESRD on maintenance HD HD schedule: TTS, last session: Access: Right arm fistula, good thrill Volume Status: below dry weight HD tomorrow with goals: duration/ UF: 3.5 hrs, 2K bath, we will reduce the UF due to hypotension 2. Electrolyte Management: Hyperkalemia: Potassium seems to be much better As needed Lokelma Metabolic bone disorder: continue sevelamer 800 mg TID with meals dietary phosphate restriction less than 1g/day Pending Vitamin D level and elevated PTH levels 3. Anemia of ESRD: HGB 9 , Ferritin: 1560 Iron levels: 29 TIBC:224 Erythropoietin 5000 units subcutaneous 3 times a week 4. Hypertension: Given the patient has post dialysis hypotension would recommend holding dose of carvedilol on Sunday mornings until the dialysis is over. Stop metoprolol, do as needed midodrine 10mg for hypotension Patient educated on: diagnosis, medication risk/benefits, substance abuse, therapeutic strategies and medical condition Informed Consent: understands Reason for continued inpatient stay Substantial Risk for: inability to function, rapid decompensation and med/psych decompensation Time Spent With Patient Time: Total time managing care of this patient today ___45 _ minutes.
--- NOTE | 2025-02-06 13:42 | MHC.CLN ---
CONSULT PATIENT WITH ESRD ON HEMODIALYSIS. DIET CHANGED TO 2 GRAM SODIUM, LOW PHOSPHORUS, LOW POTASSIUM PER DIALYSIS PARAMETERS. RD TO MONITOR WEEKLY.
[2025-02-07] MEDS: Sevelamer Carbonate Tablet 800 MG TABLET PO ×4 (07:06→20:32)
[2025-02-07 07:30] VITALS: BP 118/73; PULSE 81; RESP 16; TEMP 36.9; O2SAT 95
--- NOTE | 2025-02-07 09:27 | HO.PSYCHPN ---
Subjective Subjective Date of Service: 02/07/25 Interim History: VSS today post dialysis. Tolerating medications. He reports depression. Denies SI. Denies AVH. No psychosis noted. Review of Systems Review of Systems Patient has no acute medical complaints at this time All other systems are reviewed and are negative Yes all other systems are reviewed and are negative, unobtainable due to endotracheal tube, Unobtainable due to mental condition, Unobtainable due to mental status and Other (limited historian, appears to minimize) Constitutional: Reports no additional constitutional complaints, Reports difficulty sleeping, Reports fatigue, Reports lethargy and Reports other (recent hospital acquired pneumonia noted by ED and prescribed Doxicycline--) Eyes: Reports as per HPI Reports as per HPI Cardiovascular: Reports as per HPI, Reports syncope and Reports palpitations Respiratory: Reports no additional respiratory complaints and Reports other (no respiratory difficulty-has copd, recent dx HAP) Gastrointestinal: Reports as per HPI Musculoskeletal: Reports no additional musculoskeletal complaints Reports Neuro-related abnormal movements, Reports confusion (episodes of AMS, last one preceding admission), Reports syncope and Reports tremor(s) Psychiatric: Reports as per HPI, Reports abnormal sleep pattern, Reports anxiety, Reports confusion (episodes of AMS, last one preceding admission), Reports depression, Reports hopelessness, Reports anhedonia, Reports suicidal ideation (denies today) and Reports other (endorses past symptoms suggesting psychotic episode) Endocrine: Reports as per HPI, Reports fatigue and Reports palpitations Hematologic/Lymphatic: Reports as per HPI Mental Status Exam Mental Status Exam Patient Appearance: Disheveled (less) Patient Orientation: Person, Place, Time and Situation Level of Consciousness: Awake, Appropriate, Alert and Follows Commands Patient Behavior: Appropriate (calm, in bed, seems a bit slowed down ?sleepy) and Cooperative Mood Description: Calm, Constricted, Depressed and Anxious (report by patient) Affect Description: Constricted, Depressed and Anxious Patient Cognition Impaired: No Ability to Follow Directions: Good Speech Pattern: Impoverished and Soft-Spoken Memory Description: Normal for Patient (no gross impairment but variable (ams if no dyalisis)) Diagnostics Vital Signs (24Hr): Vital Signs - 24 hr 02/06/25 10:00 02/06/25 16:00 02/06/25 20:00 Temperature 98.9 F 98.4 F 98.1 F Pulse Rate 64 84 81 Respiratory Rate 14 18 16 Blood Pressure 124/61 121/62 117/70 Pulse Oximetry 94 98 98 Oxygen Delivery Method Room Air Room Air Room Air 02/07/25 07:30 Temperature 98.4 F Pulse Rate 81 Respiratory Rate 16 Blood Pressure 118/73 Pulse Oximetry 95 Oxygen Delivery Method Room Air BMI result Body Mass Index 25.6 Labs 02/05/25 19:35 02/05/25 07:16 Labs: Laboratory Results - last 48 hr 02/05/25 02/06/25 19:35 00:52 WBC 9.9 RBC 3.10 L Hgb 9.2 L Hct 29.7 L MCV 95.8 MCH 29.7 MCHC 31.0 RDW 19.1 H Plt Count 437 H MPV 9.8 Immature Gran % (Auto) 1.6 H Neut % (Auto) 65.0 Lymph % (Auto) 14.7 L [place] % (Auto) 14.9 H Eos % (Auto) 2.9 Baso % (Auto) 0.9 Lymph # (Auto) 1.5 [place] # (Auto) 1.5 H Eos # (Auto) 0.3 Baso # (Auto) 0.1 Abs Immat Gran (auto) 0.16 H Absolute Neuts (auto) 6.5 Absolute Nucleated RBC 0.000 Nucleated RBC % (auto) 0.0 Lactic Acid 1.0 Iron 65 TIBC 224 L % Saturation 29 Unsat Iron Binding 159 Ferritin 1561 H PTH Intact 2127.4 H Medications Medications Current Medications Acetaminophen (Acetaminophen 325 Mg Tablet) 650 mg PO Q6H PRN PRN Reason: Headache/Pain, Scale 1-10 Last Admin: 02/05/25 17:59 Dose: 650 mg Al Hydroxide/Mg Hydroxide (Magnesium Hydrox/Alum Hydrox 30 Ml Oral.Susp) 30 ml PO Q6H PRN PRN Reason: Heartburn/Nausea Aspirin (Aspirin Enteric Coated 81 Mg Tablet.) 81 mg PO DAILY [facility] Last Admin: 02/06/25 08:55 Dose: 81 mg Atorvastatin Calcium (Atorvastatin Calcium 80 Mg Tablet) 80 mg PO DAILY [facility] Last Admin: 02/06/25 08:54 Dose: 80 mg Carvedilol (Carvedilol 12.5 Mg Tablet) 12.5 mg PO TUTHSA@2100 [facility]; Protocol Carvedilol (Carvedilol 12.5 Mg Tablet) 12.5 mg PO SUMOWEFR@0900,2100 [facility]; Protocol Last Admin: 02/06/25 21:00 Dose: 12.5 mg Clopidogrel Bisulfate (Clopidogrel Bisulfate 75 Mg Tablet) 75 mg PO DAILY [facility] Last Admin: 02/06/25 08:55 Dose: 75 mg Doxycycline Monohydrate (Doxycycline Monohydrate 100 Mg Capsule) 100 mg PO Q12H [facility] Stop: 02/14/25 06:01 Last Admin: 02/07/25 07:04 Dose: 100 mg Epoetin Jono-epbx 3,000 unit/ (Epoetin Jono-epbx 2,000 unit) 5,000 [facility] Folic Acid (Folic Acid 1 Mg Tablet) 1 mg PO DAILY [facility] Last Admin: 02/06/25 08:54 Dose: 1 mg Hydroxyzine HCl (Hydroxyzine Hcl 50 Mg Tablet) 50 mg PO TID PRN PRN Reason: Anxiety Last Admin: 02/07/25 07:03 Dose: 50 mg Lamotrigine (Lamotrigine 25 Mg Tablet) 25 mg PO DAILY [facility] Last Admin: 02/06/25 08:55 Dose: 25 mg Melatonin (Melatonin 3 Mg Tablet) 9 mg PO BEDTIME [facility] Last Admin: 02/06/25 20:56 Dose: 9 mg Midodrine (Midodrine Hcl 2.5 Mg Tablet) 2.5 mg PO DAILY PRN PRN Reason: SBP<100 Last Admin: 02/05/25 16:53 Dose: 2.5 mg Midodrine (Midodrine Hcl 10 Mg Tablet) 10 mg PO TuTa@1645 PRN PRN Reason: Dialysis hypotension Olanzapine (Olanzapine 10 Mg Tablet) 10 mg PO BID [facility] Last Admin: 02/06/25 20:56 Dose: 10 mg Sertraline HCl (Sertraline Hcl 100 Mg Tablet) 200 mg PO DAILY [facility] Last Admin: 02/06/25 08:55 Dose: 200 mg Sevelamer Carbonate (Sevelamer Carbonate Tablet 800 Mg Tablet) 800 mg PO QIDWMHS [facility] Last Admin: 02/07/25 07:06 Dose: 800 mg Sodium Zirconium Cyclosilicate (Sodium Zirconium Cyclosilicate 5 Gm Powd.Pack) 5 gm PO DAILY@0700 PRN PRN Reason: Hyperkalemia Thiamine HCl (Thiamine Hcl 100 Mg Tablet) 100 mg PO DAILY [facility] Last Admin: 02/06/25 08:54 Dose: 100 mg Trazodone HCl (Trazodone Hcl 50 Mg Tablet) 50 mg PO BEDTIME MRX1 PRN PRN Reason: Insomnia Allergies Allergies Allergy/AdvReac Type Severity Reaction Status Date / Time No Known Allergies Allergy Verified 02/04/25 14:00 Assessment & Plan Assessment & Plan (1) HTN (hypertension): Qualifiers: Hypertension type: unspecified Qualified Code(s): I10 - Essential (primary) hypertension Status: Chronic Code(s): I10 - Essential (primary) hypertension Assessment and Plan: per medical team, cont meds (2) End stage renal disease: Status: Acute Code(s): N18.6 - End stage renal disease (3) CKD (chronic kidney disease) requiring chronic dialysis: Status: Acute Code(s): N18.6 - End stage renal disease; Z99.2 - Dependence on renal dialysis (4) Major depression, recurrent, chronic: Status: Acute Code(s): F33.9 - Major depressive disorder, recurrent, unspecified (5) Alcohol use disorder, severe, dependence: Status: Acute Code(s): F10.20 - Alcohol dependence, uncomplicated Assessment and Plan: Not scoring on CIWA: will dc groups,motivational interviewing/psychoeducation (6) Alcohol withdrawal: Qualifiers: Complication of substance-induced condition: uncomplicated Qualified Code(s): F10.930 - Alcohol use, unspecified with withdrawal, uncomplicated Status: Acute Code(s): F10.939 - Alcohol use, unspecified with withdrawal, unspecified (7) Nicotine dependence with current use: Status: Acute Code(s): F17.200 - Nicotine dependence, unspecified, uncomplicated Assessment and Plan: NRT if agrees, groups,education (8) Cocaine use disorder: Status: Acute Code(s): F14.10 - Cocaine abuse, uncomplicated Assessment and Plan: groups,motivational interviewing/psychoeducation (9) Non compliance with medical treatment: Status: Acute Code(s): Z91.199 - Patient's noncompliance with other medical treatment and regimen due to unspecified reason (10) Dialysis patient: Status: Acute Code(s): Z99.2 - Dependence on renal dialysis (11) Healthcare-associated pneumonia: Status: Acute Code(s): J18.9 - Pneumonia, unspecified organism Assessment and Plan: Doxicycline re-ordered (started in ED)and will be evaluated by medical team/medical ACADEMIC SUPPORT COORDINATOR (12) Alcoholic fatty liver: Status: Acute Code(s): K70.0 - Alcoholic fatty liver (13) Tachycardia: Status: Acute Code(s): R00.0 - Tachycardia, unspecified (14) Anemia: Qualifiers: Anemia type: due to chronic kidney disease Chronic kidney disease stage: on chronic dialysis Qualified Code(s): N18.6 - End stage renal disease; D63.1 - Anemia in chronic kidney disease; Z99.2 - Dependence on renal dialysis Status: Acute Code(s): D64.9 - Anemia, unspecified (15) Hyperphosphatemia: Status: Acute Code(s): E83.39 - Other disorders of phosphorus metabolism (16) COPD (chronic obstructive pulmonary disease): Qualifiers: COPD type: unspecified COPD Qualified Code(s): J44.9 - Chronic obstructive pulmonary disease, unspecified Status: Acute Code(s): J44.9 - Chronic obstructive pulmonary disease, unspecified (17) Bifascicular block: Status: Chronic Code(s): I45.2 - Bifascicular block Plan 1. ESRD on maintenance HD HD schedule: TTS, last session: Access: Right arm fistula, good thrill Volume Status: below dry weight HD tomorrow with goals: duration/ UF: 3.5 hrs, 2K bath, we will reduce the UF due to hypotension 2. Electrolyte Management: Hyperkalemia: Potassium seems to be much better As needed Lokelma Metabolic bone disorder: continue sevelamer 800 mg TID with meals dietary phosphate restriction less than 1g/day Pending Vitamin D level and elevated PTH levels 3. Anemia of ESRD: HGB 9 , Ferritin: 1560 Iron levels: 29 TIBC:224 Erythropoietin 5000 units subcutaneous 3 times a week 4. Hypertension: Given the patient has post dialysis hypotension would recommend holding dose of carvedilol on Sunday mornings until the dialysis is over. Stop metoprolol, do as needed midodrine 10mg for hypotension 02/07: continue current management and treatment plan. Reason for continued inpatient stay Substantial Risk for: inability to function, rapid decompensation and med/psych decompensation Time Spent With Patient Time: Total time managing care of this patient today ____ minutes.
[2025-02-07 12:00] VITALS: BP 118/56; PULSE 94; RESP 16; TEMP 37; O2SAT 98
--- NOTE | 2025-02-07 12:11 | W.PM.DNNEP ---
Subjective Subjective Date of Service: 02/07/25 This patient was seen during dialysis. Interval history: He underwent dialysis this morning without any issues We reduced the UF to 1 L today given hypotension post dialysis on . Physical Exam Vital Signs: Vital Signs: Last Vital Signs Temp 98.4 F 02/07/25 07:30 Pulse 81 02/07/25 07:30 Resp 16 02/07/25 07:30 BP 118/73 02/07/25 07:30 Pulse Ox 95 02/07/25 07:30 O2 Del Method Room Air 02/07/25 07:30 BMI result Body Mass Index 25.6 General: not in any acute distress, ill appearing Nutritional Appearance: well nourished and normal weight Eyes: appearance normal, both eyes and all related structures; Alignment and Position: alignment normal and position normal Neck: No lymphadenopathy, no thyromegaly Resp: bilateral air entry equal, no added sounds present Cardio: Regular rate, regular rhythm; Heart sounds: S1 normal heart sound present and S2 normal heart sound present GI: soft, nontender, no guarding, no hepatosplenomegaly : bladder normal to inspection, bladder normal to palpation, no renal angle tenderness Skin: no rashes or lesions noted and elasticity normal Neuro: alert, oriented x 3, moves all extremities Assessment & Plan Assessment and plan (1) Alcohol withdrawal: Status: Acute (2) HTN (hypertension): Status: Chronic (3) Hyperphosphatemia: Status: Acute (4) End stage renal disease: Status: Acute Plan 1. ESRD on maintenance HD HD schedule: TTS, last session: ; underwent HD this morning Access: Right arm fistula, good thrill Volume Status: below dry weight HD today with goals: duration/ UF: 3.5 hrs, 2K bath, UF 1 litres. UF reduced to 1litre today given post dialysis hypotension on , 2. Electrolyte Management: Hyperkalemia: Lokelma as needed Hypocalcemia: pending Vitamin D levels PTH levels 2126 Hyperphosphatemia: continue sevelamer 800 mg TID with meals dietary phosphate restriction less than 1g/day 3. Anemia of ESRD: Hb 9.2, Ferritin: 1561 Iron levels: 29 TIBC:224 continue erythropoetin 5k unit thrice a week 4. Hypertension: continue carvedilol 12.5 mg b.i.d to be given after dialysis on TTS as needed midodrine for hypotension Thanks for your consult, we will continue to follow up this patient along with you. Time Spent With Patient Time: Total time managing care of this patient today ____ minutes. Procedures Date of Service Date of Service: 02/07/25
[2025-02-07] MEDS: Aspirin Enteric Coated 81 MG TABLET.DR PO (12:13)
[2025-02-07 16:00] VITALS: BP 98/59; PULSE 86; RESP 16; TEMP 38; O2SAT 97
[2025-02-07 17:59] VITALS: TEMP 37.5
--- NOTE | 2025-02-07 18:03 | PC.NURSE ---
Patient out to dialysis at 7:40AM. AM meds given after pt returned from dialysis per DR Jamil recommendations.
[2025-02-07 20:00] VITALS: BP 123/71; PULSE 86; RESP 18; TEMP 37.4; O2SAT 97
[2025-02-07 20:32] VITALS: BP 123/71; PULSE 86
[2025-02-08 08:00] VITALS: BP 133/84; PULSE 76; TEMP 36.9
[2025-02-08] MEDS: Sevelamer Carbonate Tablet 800 MG TABLET PO ×4 (08:56→21:33)
[2025-02-08] MEDS: Aspirin Enteric Coated 81 MG TABLET.DR PO (08:57)
--- NOTE | 2025-02-08 12:24 | P.PNPSI_ITS ---
Subjective Subjective Date of Service: 02/08/25 Interim History: VSS today post dialysis. Tolerating medications. Reports he is having a good day today and feels the medications are starting to help. He reports depression is better. Denies SI. Denies AVH. It helps that I am not drinking. No psychosis. More visible on the unit. Review of Systems Review of Systems Patient has no acute medical complaints at this time All other systems are reviewed and are negative Yes all other systems are reviewed and are negative, unobtainable due to endotracheal tube, Unobtainable due to mental condition, Unobtainable due to mental status and Other (limited historian, appears to minimize) Constitutional: Reports no additional constitutional complaints, Reports difficulty sleeping, Reports fatigue, Reports lethargy and Reports other (recent hospital acquired pneumonia noted by ED and prescribed Doxicycline--) Eyes: Reports as per HPI Reports as per HPI Cardiovascular: Reports as per HPI, Reports syncope and Reports palpitations Respiratory: Reports no additional respiratory complaints and Reports other (no respiratory difficulty-has copd, recent dx HAP) Gastrointestinal: Reports as per HPI Musculoskeletal: Reports no additional musculoskeletal complaints Reports Neuro-related abnormal movements, Reports confusion (episodes of AMS, last one preceding admission), Reports syncope and Reports tremor(s) Psychiatric: Reports as per HPI, Reports abnormal sleep pattern, Reports anxiety, Reports confusion (episodes of AMS, last one preceding admission), Reports depression, Reports hopelessness, Reports anhedonia, Reports suicidal ideation (denies today) and Reports other (endorses past symptoms suggesting psychotic episode) Endocrine: Reports as per HPI, Reports fatigue and Reports palpitations Hematologic/Lymphatic: Reports as per HPI Mental Status Exam Mental Status Exam Patient Appearance: Disheveled (less) Patient Orientation: Person, Place, Time and Situation Level of Consciousness: Awake, Appropriate, Alert and Follows Commands Patient Behavior: Appropriate (calm, in bed, seems a bit slowed down ?sleepy) and Cooperative Mood Description: Calm, Constricted, Depressed and Anxious (report by patient) Affect Description: Constricted, Depressed and Anxious Patient Cognition Impaired: No Ability to Follow Directions: Good Speech Pattern: Impoverished and Soft-Spoken Memory Description: Normal for Patient (no gross impairment but variable (ams if no dyalisis)) Diagnostics Vital Signs (24Hr): Vital Signs - 24 hr 02/07/25 16:00 02/07/25 17:59 02/07/25 20:00 Temperature 100.4 F 99.5 F 99.4 F Pulse Rate 86 86 Respiratory Rate 16 18 Blood Pressure 98/59 L 123/71 Pulse Oximetry 97 97 Oxygen Delivery Method Room Air Room Air 02/07/25 20:32 02/08/25 08:00 Temperature 98.4 F Pulse Rate 86 76 Respiratory Rate Blood Pressure 123/71 133/84 Pulse Oximetry Oxygen Delivery Method BMI result Body Mass Index 25.6 Labs 02/05/25 19:35 02/05/25 07:16 Labs: Laboratory Results - last 48 hr 02/05/25 02/06/25 19:35 00:52 WBC 9.9 RBC 3.10 L Hgb 9.2 L Hct 29.7 L MCV 95.8 MCH 29.7 MCHC 31.0 RDW 19.1 H Plt Count 437 H MPV 9.8 Immature Gran % (Auto) 1.6 H Neut % (Auto) 65.0 Lymph % (Auto) 14.7 L Foster % (Auto) 14.9 H Eos % (Auto) 2.9 Baso % (Auto) 0.9 Lymph # (Auto) 1.5 Foster # (Auto) 1.5 H Eos # (Auto) 0.3 Baso # (Auto) 0.1 Abs Immat Gran (auto) 0.16 H Absolute Neuts (auto) 6.5 Absolute Nucleated RBC 0.000 Nucleated RBC % (auto) 0.0 Lactic Acid 1.0 Iron 65 TIBC 224 L % Saturation 29 Unsat Iron Binding 159 Ferritin 1561 H PTH Intact 2127.4 H Medications Medications Current Medications Acetaminophen (Acetaminophen 325 Mg Tablet) 650 mg PO Q6H PRN PRN Reason: Headache/Pain, Scale 1-10 Last Admin: 02/07/25 16:55 Dose: 650 mg Al Hydroxide/Mg Hydroxide (Magnesium Hydrox/Alum Hydrox 30 Ml Oral.Susp) 30 ml PO Q6H PRN PRN Reason: Heartburn/Nausea Aspirin (Aspirin Enteric Coated 81 Mg Tablet.) 81 mg PO DAILY [facility] Last Admin: 02/08/25 08:57 Dose: 81 mg Atorvastatin Calcium (Atorvastatin Calcium 80 Mg Tablet) 80 mg PO DAILY [facility] Last Admin: 02/08/25 08:57 Dose: 80 mg Carvedilol (Carvedilol 12.5 Mg Tablet) 12.5 mg PO TUTHSA@2100 [facility]; Protocol Last Admin: 02/07/25 20:32 Dose: 12.5 mg Carvedilol (Carvedilol 12.5 Mg Tablet) 12.5 mg PO SUMOWEFR@09,2099 [facility]; Protocol Last Admin: 02/08/25 10:09 Dose: 12.5 mg Clopidogrel Bisulfate (Clopidogrel Bisulfate 75 Mg Tablet) 75 mg PO DAILY [facility] Last Admin: 02/08/25 08:56 Dose: 75 mg Doxycycline Monohydrate (Doxycycline Monohydrate 100 Mg Capsule) 100 mg PO Q12H [facility] Stop: 02/14/25 06:01 Last Admin: 02/08/25 06:23 Dose: 100 mg Epoetin Jono-epbx 3,000 unit/ (Epoetin Jono-epbx 2,000 unit) 5,000 unit SUBCUT TuTa@1642 [facility] Last Admin: 02/07/25 17:42 Dose: 5,000 unit Folic Acid (Folic Acid 1 Mg Tablet) 1 mg PO DAILY [facility] Last Admin: 02/08/25 08:56 Dose: 1 mg Hydroxyzine HCl (Hydroxyzine Hcl 50 Mg Tablet) 50 mg PO TID PRN PRN Reason: Anxiety Last Admin: 02/07/25 20:32 Dose: 50 mg Lamotrigine (Lamotrigine 25 Mg Tablet) 25 mg PO DAILY [facility] Last Admin: 02/08/25 08:58 Dose: 25 mg Melatonin (Melatonin 3 Mg Tablet) 9 mg PO BEDTIME [facility] Last Admin: 02/07/25 20:32 Dose: 9 mg Midodrine (Midodrine Hcl 2.5 Mg Tablet) 2.5 mg PO DAILY PRN PRN Reason: SBP<100 Last Admin: 02/05/25 16:53 Dose: 2.5 mg Midodrine (Midodrine Hcl 10 Mg Tablet) 10 mg PO TuThSa@1645 PRN PRN Reason: Dialysis hypotension Olanzapine (Olanzapine 10 Mg Tablet) 10 mg PO BID [facility] Last Admin: 02/08/25 08:56 Dose: 10 mg Sertraline HCl (Sertraline Hcl 100 Mg Tablet) 200 mg PO DAILY [facility] Last Admin: 02/08/25 08:57 Dose: 200 mg Sevelamer Carbonate (Sevelamer Carbonate Tablet 800 Mg Tablet) 800 mg PO QIDWMHS [facility] Last Admin: 02/08/25 12:20 Dose: 800 mg Sodium Zirconium Cyclosilicate (Sodium Zirconium Cyclosilicate 5 Gm Powd.Pack) 5 gm PO DAILY@0700 PRN PRN Reason: Hyperkalemia Thiamine HCl (Thiamine Hcl 100 Mg Tablet) 100 mg PO DAILY SUZETTE Last Admin: 02/08/25 08:58 Dose: 100 mg Trazodone HCl (Trazodone Hcl 50 Mg Tablet) 50 mg PO BEDTIME MRX1 PRN PRN Reason: Insomnia Allergies Allergies Allergy/AdvReac Type Severity Reaction Status Date / Time No Known Allergies Allergy Verified 02/04/25 14:00 Assessment & Plan Assessment & Plan (1) HTN (hypertension): Qualifiers: Hypertension type: unspecified Qualified Code(s): I10 - Essential (primary) hypertension Status: Chronic Code(s): I10 - Essential (primary) hypertension Assessment and Plan: per medical team, cont meds (2) End stage renal disease: Status: Acute Code(s): N18.6 - End stage renal disease (3) CKD (chronic kidney disease) requiring chronic dialysis: Status: Acute Code(s): N18.6 - End stage renal disease; Z99.2 - Dependence on renal dialysis (4) Major depression, recurrent, chronic: Status: Acute Code(s): F33.9 - Major depressive disorder, recurrent, unspecified (5) Alcohol use disorder, severe, dependence: Status: Acute Code(s): F10.20 - Alcohol dependence, uncomplicated Assessment and Plan: Not scoring on CIWA: will dc groups,motivational interviewing/psychoeducation (6) Alcohol withdrawal: Qualifiers: Complication of substance-induced condition: uncomplicated Qualified Code(s): F10.930 - Alcohol use, unspecified with withdrawal, uncomplicated Status: Acute Code(s): F10.939 - Alcohol use, unspecified with withdrawal, unspecified (7) Nicotine dependence with current use: Status: Acute Code(s): F17.200 - Nicotine dependence, unspecified, uncomplicated Assessment and Plan: NRT if agrees, groups,education (8) Cocaine use disorder: Status: Acute Code(s): F14.10 - Cocaine abuse, uncomplicated Assessment and Plan: groups,motivational interviewing/psychoeducation (9) Non compliance with medical treatment: Status: Acute Code(s): Z91.199 - Patient's noncompliance with other medical treatment and regimen due to unspecified reason (10) Dialysis patient: Status: Acute Code(s): Z99.2 - Dependence on renal dialysis (11) Healthcare-associated pneumonia: Status: Acute Code(s): J18.9 - Pneumonia, unspecified organism Assessment and Plan: Doxicycline re-ordered (started in ED)and will be evaluated by medical team/medical [employer] (12) Alcoholic fatty liver: Status: Acute Code(s): K70.0 - Alcoholic fatty liver (13) Tachycardia: Status: Acute Code(s): R00.0 - Tachycardia, unspecified (14) Anemia: Qualifiers: Anemia type: due to chronic kidney disease Chronic kidney disease stage: on chronic dialysis Qualified Code(s): N18.6 - End stage renal disease; D63.1 - Anemia in chronic kidney disease; Z99.2 - Dependence on renal dialysis Status: Acute Code(s): D64.9 - Anemia, unspecified (15) Hyperphosphatemia: Status: Acute Code(s): E83.39 - Other disorders of phosphorus metabolism (16) COPD (chronic obstructive pulmonary disease): Qualifiers: COPD type: unspecified COPD Qualified Code(s): J44.9 - Chronic obstructive pulmonary disease, unspecified Status: Acute Code(s): J44.9 - Chronic obstructive pulmonary disease, unspecified (17) Bifascicular block: Status: Chronic Code(s): I45.2 - Bifascicular block Plan 1. ESRD on maintenance HD HD schedule: TTS, last session: Access: Right arm fistula, good thrill Volume Status: below dry weight HD tomorrow with goals: duration/ UF: 3.5 hrs, 2K bath, we will reduce the UF due to hypotension 2. Electrolyte Management: Hyperkalemia: Potassium seems to be much better As needed Lokelma Metabolic bone disorder: continue sevelamer 800 mg TID with meals dietary phosphate restriction less than 1g/day Pending Vitamin D level and elevated PTH levels 3. Anemia of ESRD: HGB 9 , Ferritin: 1560 Iron levels: 29 TIBC:224 Erythropoietin 5000 units subcutaneous 3 times a week 4. Hypertension: Given the patient has post dialysis hypotension would recommend holding dose of carvedilol on Sunday mornings until the dialysis is over. Stop metoprolol, do as needed midodrine 10mg for hypotension 02/07: continue current management and treatment plan. 02/08: continue current management and treatment plan. Reason for continued inpatient stay Substantial Risk for: inability to function, rapid decompensation and med/psych decompensation Time Spent With Patient Time: Total time managing care of this patient today ____ minutes.
[2025-02-08 21:29] VITALS: BP 137/80; PULSE 80; RESP 16; TEMP 38; O2SAT 98
[2025-02-09 08:00] VITALS: BP 158/92; PULSE 63; RESP 18; TEMP 36.9; O2SAT 97
[2025-02-09] MEDS: Aspirin Enteric Coated 81 MG TABLET.DR PO (08:51)
[2025-02-09] MEDS: Sevelamer Carbonate Tablet 800 MG TABLET PO ×4 (08:52→21:41)
--- NOTE | 2025-02-09 09:27 | HO.PSYCHPN ---
Subjective Subjective Date of Service: 02/09/25 Reason For Visit: depression w/ SI; Alcohol use do with wd symptoms Subjective Notes: Thompson Warning, Conditional Voluntary and 3 Day (Retracted after we discussed need to continue tx and aftercare arrangements. ) Healthcare Proxy: No Medical Problems Affecting Mental Status: Yes Medication Compliance: Yes Side effects from medications: No Review of Systems Acute medical concerns: Yes undergoing dyalysis TIW, due tomorrow Medical Review of Systems: unchanged Review of Systems Review of Systems no changes Mental Status Exam Mental Status Exam Patient Appearance: Appropriate Patient Orientation: Person, Place, Time and Situation Level of Consciousness: Awake, Appropriate and Follows Commands Patient Behavior: Appropriate Mood Description: Constricted and Depressed (says much less) Affect Description: Calm Ability to Follow Directions: Good Speech Pattern: Clear, Impoverished, Coherent and Soft-Spoken Hallucinations: None Delusions: Not Present Thought Process: Goal Oriented and Slowed Thinking Thought Content: positive for Logical, negative for Suicidal Ideation or negative for Homicidal Ideation Depressive Symptoms: Diff. Making Decisions, Difficulty Sleeping, Loss of Int. in Activity and Loss of Energy Abnormal Motor Activity Signs and Symptoms: Psychomotor Retardation (mild,) Judgement: Fair Diagnostics Vital Signs (24Hr): Vital Signs - 24 hr 02/08/25 21:29 02/09/25 08:00 Temperature 100.4 F 98.4 F Pulse Rate 80 63 Respiratory Rate 16 18 Blood Pressure 137/80 158/92 H Pulse Oximetry 98 97 Oxygen Delivery Method Room Air Room Air BMI result Body Mass Index 25.6 Labs 02/05/25 19:35 02/05/25 07:16 Medications Medications Current Medications Acetaminophen (Acetaminophen 325 Mg Tablet) 650 mg PO Q6H PRN PRN Reason: Headache/Pain, Scale 1-10 Last Admin: 02/08/25 21:33 Dose: 650 mg Al Hydroxide/Mg Hydroxide (Magnesium Hydrox/Alum Hydrox 30 Ml Oral.Susp) 30 ml PO Q6H PRN PRN Reason: Heartburn/Nausea Aspirin (Aspirin Enteric Coated 81 Mg Tablet.) 81 mg PO DAILY [facility] Last Admin: 02/09/25 08:51 Dose: 81 mg Atorvastatin Calcium (Atorvastatin Calcium 80 Mg Tablet) 80 mg PO DAILY [facility] Last Admin: 02/09/25 08:51 Dose: 80 mg Carvedilol (Carvedilol 12.5 Mg Tablet) 12.5 mg PO TUTHSA@2100 [facility]; Protocol Last Admin: 02/07/25 20:32 Dose: 12.5 mg Carvedilol (Carvedilol 12.5 Mg Tablet) 12.5 mg PO SUMOWEFR@09,2099 [facility]; Protocol Last Admin: 02/09/25 03:07 Dose: Not Given Clopidogrel Bisulfate (Clopidogrel Bisulfate 75 Mg Tablet) 75 mg PO DAILY [facility] Last Admin: 02/09/25 08:52 Dose: 75 mg Doxycycline Monohydrate (Doxycycline Monohydrate 100 Mg Capsule) 100 mg PO Q12H [facility] Stop: 02/14/25 06:01 Last Admin: 02/09/25 05:57 Dose: 100 mg Epoetin Jono-epbx 3,000 unit/ (Epoetin Ojno-epbx 2,000 unit) 5,000 unit SUBCUT TuTa@1875 [facility] Last Admin: 02/07/25 17:42 Dose: 5,000 unit Folic Acid (Folic Acid 1 Mg Tablet) 1 mg PO DAILY [facility] Last Admin: 02/09/25 08:51 Dose: 1 mg Hydroxyzine HCl (Hydroxyzine Hcl 50 Mg Tablet) 50 mg PO TID PRN PRN Reason: Anxiety Last Admin: 02/07/25 20:32 Dose: 50 mg Lamotrigine (Lamotrigine 25 Mg Tablet) 25 mg PO DAILY [facility] Last Admin: 02/09/25 08:52 Dose: 25 mg Melatonin (Melatonin 3 Mg Tablet) 9 mg PO BEDTIME [facility] Last Admin: 02/08/25 21:33 Dose: 9 mg Midodrine (Midodrine Hcl 2.5 Mg Tablet) 2.5 mg PO DAILY PRN PRN Reason: SBP<100 Last Admin: 02/05/25 16:53 Dose: 2.5 mg Midodrine (Midodrine Hcl 10 Mg Tablet) 10 mg PO TuTa@1645 PRN PRN Reason: Dialysis hypotension Olanzapine (Olanzapine 10 Mg Tablet) 10 mg PO BID [facility] Last Admin: 02/09/25 08:51 Dose: 10 mg Sertraline HCl (Sertraline Hcl 100 Mg Tablet) 200 mg PO DAILY [facility] Last Admin: 02/09/25 08:51 Dose: 200 mg Sevelamer Carbonate (Sevelamer Carbonate Tablet 800 Mg Tablet) 800 mg PO QIDWMHS [facility] Last Admin: 02/09/25 08:52 Dose: 800 mg Sodium Zirconium Cyclosilicate (Sodium Zirconium Cyclosilicate 5 Gm Powd.Pack) 5 gm PO DAILY@0700 PRN PRN Reason: Hyperkalemia Thiamine HCl (Thiamine Hcl 100 Mg Tablet) 100 mg PO DAILY [facility] Last Admin: 02/09/25 08:52 Dose: 100 mg Trazodone HCl (Trazodone Hcl 50 Mg Tablet) 50 mg PO BEDTIME MRX1 PRN PRN Reason: Insomnia Allergies Allergies Allergy/AdvReac Type Severity Reaction Status Date / Time No Known Allergies Allergy Verified 02/04/25 14:00 Assessment & Plan Assessment & Plan (1) Major depression, recurrent, chronic: Status: Acute Code(s): F33.9 - Major depressive disorder, recurrent, unspecified (2) Alcohol use disorder, severe, dependence: Status: Acute Code(s): F10.20 - Alcohol dependence, uncomplicated Assessment and Plan: Not scoring on CIWA: will dc groups,motivational interviewing/psychoeducation (3) Alcohol withdrawal: Qualifiers: Complication of substance-induced condition: uncomplicated Qualified Code(s): F10.930 - Alcohol use, unspecified with withdrawal, uncomplicated Status: Acute Code(s): F10.939 - Alcohol use, unspecified with withdrawal, unspecified (4) Cocaine use disorder: Status: Acute Code(s): F14.10 - Cocaine abuse, uncomplicated Assessment and Plan: groups,motivational interviewing/psychoeducation (5) End stage renal disease: Status: Acute Code(s): N18.6 - End stage renal disease (6) CKD (chronic kidney disease) requiring chronic dialysis: Status: Acute Code(s): N18.6 - End stage renal disease; Z99.2 - Dependence on renal dialysis (7) Nicotine dependence with current use: Status: Acute Code(s): F17.200 - Nicotine dependence, unspecified, uncomplicated Assessment and Plan: NRT if agrees, groups,education (8) HTN (hypertension): Qualifiers: Hypertension type: unspecified Qualified Code(s): I10 - Essential (primary) hypertension Status: Chronic Code(s): I10 - Essential (primary) hypertension Assessment and Plan: per medical team, cont meds (9) Non compliance with medical treatment: Status: Acute Code(s): Z91.199 - Patient's noncompliance with other medical treatment and regimen due to unspecified reason (10) Dialysis patient: Status: Acute Code(s): Z99.2 - Dependence on renal dialysis (11) Healthcare-associated pneumonia: Status: Acute Code(s): J18.9 - Pneumonia, unspecified organism Assessment and Plan: Doxicycline re-ordered (started in ED)and will be evaluated by medical team/medical [employer] (12) Alcoholic fatty liver: Status: Acute Code(s): K70.0 - Alcoholic fatty liver (13) Tachycardia: Status: Acute Code(s): R00.0 - Tachycardia, unspecified (14) Anemia: Qualifiers: Anemia type: due to chronic kidney disease Chronic kidney disease stage: on chronic dialysis Qualified Code(s): N18.6 - End stage renal disease; D63.1 - Anemia in chronic kidney disease; Z99.2 - Dependence on renal dialysis Status: Acute Code(s): D64.9 - Anemia, unspecified (15) Hyperphosphatemia: Status: Acute Code(s): E83.39 - Other disorders of phosphorus metabolism (16) COPD (chronic obstructive pulmonary disease): Qualifiers: COPD type: unspecified COPD Qualified Code(s): J44.9 - Chronic obstructive pulmonary disease, unspecified Status: Acute Code(s): J44.9 - Chronic obstructive pulmonary disease, unspecified (17) Bifascicular block: Status: Chronic Code(s): I45.2 - Bifascicular block Plan 1. ESRD on maintenance HD HD schedule: TTS, last session: Access: Right arm fistula, good thrill Volume Status: below dry weight HD tomorrow with goals: duration/ UF: 3.5 hrs, 2K bath, we will reduce the UF due to hypotension 2. Electrolyte Management: Hyperkalemia: Potassium seems to be much better As needed Lokelma Metabolic bone disorder: continue sevelamer 800 mg TID with meals dietary phosphate restriction less than 1g/day Pending Vitamin D level and elevated PTH levels 3. Anemia of ESRD: HGB 9 , Ferritin: 1560 Iron levels: 29 TIBC:224 Erythropoietin 5000 units subcutaneous 3 times a week 4. Hypertension: Given the patient has post dialysis hypotension would recommend holding dose of carvedilol on Sunday mornings until the dialysis is over. Stop metoprolol, do as needed midodrine 10mg for hypotension 02/07: continue current management and treatment plan. 02/08: continue current management and treatment plan. Patient educated on: diagnosis, medication risk/benefits, substance abuse, therapeutic strategies, medical condition and other Informed Consent: understands and further education needed Reason for continued inpatient stay Substantial Risk for: rapid decompensation, med/psych decompensation (improving) and other (working on setting up services---per SW patient does not have PCP or psychiatric care in the community) Time Spent With Patient Time: Total time managing care of this patient today _35___ minutes.
[2025-02-09 20:00] VITALS: BP 142/83; PULSE 73; RESP 16; TEMP 37.2; O2SAT 97
[2025-02-09 21:45] VITALS: BP 149/67; PULSE 71
[2025-02-10] VITALS: BP 132/81; PULSE 67; RESP 16; TEMP 36.6; O2SAT 97
[2025-02-10 08:00] VITALS: BP 157/93; PULSE 81; RESP 17; TEMP 36.6; O2SAT 97
[2025-02-10] MEDS: Aspirin Enteric Coated 81 MG TABLET.DR PO (08:22)
[2025-02-10] MEDS: Sevelamer Carbonate Tablet 800 MG TABLET PO ×4 (08:22→20:26)
--- NOTE | 2025-02-10 11:23 | HO.PSYCHPN ---
Subjective Subjective Date of Service: 02/10/25 Reason For Visit: depression w/ SI; Alcohol use do with wd symptoms Subjective Notes: Thompson Warning, Conditional Voluntary and 3 Day (states he signed new 3 day today to leave on Sunday) Healthcare Proxy: No Guardianship: No Interim History: VSS today post dialysis. Tolerating medications. Reports he is having a good day and feels ready to discharge home on Sunday. Objectively appears brighter. SW had difficulty getting in contact with his outpatient providers. They were obtained from pharmacy today. Patient can not tell me the name of A which team is trying to obtain to put services in place. Patient indicates the medications are helping he is no longer feeling as depressed he is future oriented and has a more optimistic outlook on the future. He denied suicidal and homicidal ideation plan or intent. He is in behavioral control. He states he plugs to refrain from drinking but does not want to go to a rehab. He says he does not have a sponsor. He reports he has a peer counselor. He presents without persecutory ideas or other delusions. He has no medical complaints to say. He is taking his medications the medications are starting to help. He reports depression is better. Denies SI. Denies AVH. It helps that I am not drinking. No psychosis. More visible on the unit. Medication Compliance: Yes Side effects from medications: No Review of Systems Acute medical concerns: Yes dyalysis 3xweek Medical Review of Systems: unchanged Review of Systems Review of Systems no changes Constitutional: Reports no additional constitutional complaints, Reports lethargy and Reports other (recent hospital acquired pneumonia per ED note and prescribed Doxicycline--) Eyes: Reports as per HPI Reports as per HPI Cardiovascular: Reports as per HPI Respiratory: Reports no additional respiratory complaints and Reports other (no respiratory difficulty-has copd, recent dx HAP) Gastrointestinal: Reports as per HPI Genitourinary: Reports as per HPI Musculoskeletal: Reports no additional musculoskeletal complaints Reports Neuro-related abnormal movements, Reports confusion (episodes of AMS, last one preceding admission) and Reports tremor(s) Psychiatric: Reports as per HPI, Reports abnormal sleep pattern, Reports anxiety, Reports confusion (episodes of AMS, last one preceding admission), Reports depression, Reports hopelessness, Reports anhedonia, Reports suicidal ideation (denies today) and Reports other (endorses past symptoms suggesting psychotic episode) Endocrine: Reports as per HPI Hematologic/Lymphatic: Reports as per HPI Mental Status Exam Mental Status Exam Patient Appearance: Appropriate Patient Orientation: Person, Place, Time and Situation Level of Consciousness: Awake, Appropriate, Alert and Follows Commands Patient Behavior: Appropriate, Cooperative and Good Eye Contact Mood Description: Calm, Constricted and Depressed (reports much improvement) Affect Description: Calm, Appropriate and Constricted (mild) Patient Cognition Impaired: No Ability to Follow Directions: Good Speech Pattern: Clear, Impoverished, Coherent and Soft-Spoken Memory Description: Intact (no gross deficits in orientation/attn/recall) and Normal for Patient (no gross impairment but variable (ams if no dyalisis)) Hallucinations: None Delusions: Not Present Thought Process: Goal Oriented Thought Content: positive for [place], positive for Poverty of Content, positive for Logical, negative for Suicidal Ideation or negative for Homicidal Ideation Abnormal Motor Activity Signs and Symptoms: Psychomotor Retardation and Tremors (not observed today--orofacial/buccal movements present which patient said he was told due to TD) Judgement: Fair Diagnostics Vital Signs (24Hr): Vital Signs - 24 hr 02/09/25 20:00 02/09/25 21:45 02/10/25 00:00 Temperature 98.9 F 97.9 F Pulse Rate 73 71 67 Respiratory Rate 16 16 Blood Pressure 142/83 H 149/67 H 132/81 Pulse Oximetry 97 97 Oxygen Delivery Method Room Air Room Air 02/10/25 08:00 Temperature 97.9 F Pulse Rate 81 Respiratory Rate 17 Blood Pressure 157/93 H Pulse Oximetry 97 Oxygen Delivery Method Room Air BMI result Body Mass Index 25.6 Labs 02/05/25 19:35 02/05/25 07:16 Labs: recheck per medical/nephrology recommendations Medications Medications Current Medications Acetaminophen (Acetaminophen 325 Mg Tablet) 650 mg PO Q6H PRN PRN Reason: Headache/Pain, Scale 1-10 Last Admin: 02/08/25 21:33 Dose: 650 mg Al Hydroxide/Mg Hydroxide (Magnesium Hydrox/Alum Hydrox 30 Ml Oral.Susp) 30 ml PO Q6H PRN PRN Reason: Heartburn/Nausea Aspirin (Aspirin Enteric Coated 81 Mg Tablet.) 81 mg PO DAILY [facility] Last Admin: 02/10/25 08:22 Dose: 81 mg Atorvastatin Calcium (Atorvastatin Calcium 80 Mg Tablet) 80 mg PO DAILY [facility] Last Admin: 02/10/25 08:30 Dose: 80 mg Carvedilol (Carvedilol 12.5 Mg Tablet) 12.5 mg PO TUTHSA@2100 [facility]; Protocol Last Admin: 02/07/25 20:32 Dose: 12.5 mg Carvedilol (Carvedilol 12.5 Mg Tablet) 12.5 mg PO SUMOWEFR@0900,2100 [facility]; Protocol Last Admin: 02/09/25 21:45 Dose: 12.5 mg Clopidogrel Bisulfate (Clopidogrel Bisulfate 75 Mg Tablet) 75 mg PO DAILY [facility] Last Admin: 02/10/25 08:23 Dose: 75 mg Doxycycline Monohydrate (Doxycycline Monohydrate 100 Mg Capsule) 100 mg PO Q12H [facility] Stop: 02/14/25 06:01 Last Admin: 02/10/25 06:12 Dose: 100 mg Epoetin Jono-epbx 3,000 unit/ (Epoetin Jono-epbx 2,000 unit) 5,000 unit SUBCUT TuTa@1645 [facility] Last Admin: 02/07/25 17:42 Dose: 5,000 unit Folic Acid (Folic Acid 1 Mg Tablet) 1 mg PO DAILY [facility] Last Admin: 02/10/25 08:23 Dose: 1 mg Hydroxyzine HCl (Hydroxyzine Hcl 50 Mg Tablet) 50 mg PO TID PRN PRN Reason: Anxiety Last Admin: 02/09/25 10:38 Dose: 50 mg Lamotrigine (Lamotrigine 25 Mg Tablet) 25 mg PO DAILY [facility] Last Admin: 02/10/25 08:22 Dose: 25 mg Melatonin (Melatonin 3 Mg Tablet) 9 mg PO BEDTIME [facility] Last Admin: 02/09/25 21:41 Dose: 9 mg Midodrine (Midodrine Hcl 2.5 Mg Tablet) 2.5 mg PO DAILY PRN PRN Reason: SBP<100 Last Admin: 02/05/25 16:53 Dose: 2.5 mg Midodrine (Midodrine Hcl 10 Mg Tablet) 10 mg PO TuThSa@1645 PRN PRN Reason: Dialysis hypotension Olanzapine (Olanzapine 10 Mg Tablet) 10 mg PO BID [facility] Last Admin: 02/10/25 08:22 Dose: 10 mg Sertraline HCl (Sertraline Hcl 100 Mg Tablet) 200 mg PO DAILY [facility] Last Admin: 02/10/25 08:22 Dose: 200 mg Sevelamer Carbonate (Sevelamer Carbonate Tablet 800 Mg Tablet) 800 mg PO QIDWMHS [facility] Last Admin: 02/10/25 08:22 Dose: 800 mg Sodium Zirconium Cyclosilicate (Sodium Zirconium Cyclosilicate 5 Gm Powd.Pack) 5 gm PO DAILY@0700 PRN PRN Reason: Hyperkalemia Thiamine HCl (Thiamine Hcl 100 Mg Tablet) 100 mg PO DAILY [facility] Last Admin: 02/10/25 08:23 Dose: 100 mg Trazodone HCl (Trazodone Hcl 50 Mg Tablet) 50 mg PO BEDTIME MRX1 PRN PRN Reason: Insomnia Last Admin: 02/10/25 01:49 Dose: 50 mg Allergies Allergies Allergy/AdvReac Type Severity Reaction Status Date / Time No Known Allergies Allergy Verified 02/04/25 14:00 Assessment & Plan Assessment & Plan (1) Major depression, recurrent, chronic: Status: Acute Code(s): F33.9 - Major depressive disorder, recurrent, unspecified Assessment and Plan: Continue current medication regime, showing improvement and no longer SI (2) Alcohol use disorder, severe, dependence: Status: Acute Code(s): F10.20 - Alcohol dependence, uncomplicated Assessment and Plan: Not scoring on CIWA: will dc groups,motivational interviewing/psychoeducation (3) Alcohol withdrawal: Qualifiers: Complication of substance-induced condition: uncomplicated Qualified Code(s): F10.930 - Alcohol use, unspecified with withdrawal, uncomplicated Status: Acute Code(s): F10.939 - Alcohol use, unspecified with withdrawal, unspecified Assessment and Plan: Resolved (4) Cocaine use disorder: Status: Acute Code(s): F14.10 - Cocaine abuse, uncomplicated Assessment and Plan: groups,motivational interviewing/psychoeducation (5) End stage renal disease: Status: Acute Code(s): N18.6 - End stage renal disease (6) CKD (chronic kidney disease) requiring chronic dialysis: Status: Acute Code(s): N18.6 - End stage renal disease; Z99.2 - Dependence on renal dialysis (7) Nicotine dependence with current use: Status: Acute Code(s): F17.200 - Nicotine dependence, unspecified, uncomplicated Assessment and Plan: NRT if agreeable,education (8) HTN (hypertension): Qualifiers: Hypertension type: unspecified Qualified Code(s): I10 - Essential (primary) hypertension Status: Chronic Code(s): I10 - Essential (primary) hypertension Assessment and Plan: f/u per medical team, cont antihypertensive meds (9) Non compliance with medical treatment: Status: Acute Code(s): Z91.199 - Patient's noncompliance with other medical treatment and regimen due to unspecified reason Assessment and Plan: Has been compliant with treatment in unit and retracted 3 day and agreed to stay until Sunday only, to allow transition to community and after care. Patient has VNA and SW trying to connect to schedule f/u and aftercare (10) Dialysis patient: Status: Acute Code(s): Z99.2 - Dependence on renal dialysis (11) Healthcare-associated pneumonia: Status: Acute Code(s): J18.9 - Pneumonia, unspecified organism Assessment and Plan: Doxicycline re-ordered (started in ED) and evaluated by medical team/medical CHILD NUTRITION ASSISTANT for futher tx (12) Alcoholic fatty liver: Status: Acute Code(s): K70.0 - Alcoholic fatty liver (13) Tachycardia: Status: Acute Code(s): R00.0 - Tachycardia, unspecified (14) Anemia: Qualifiers: Anemia type: due to chronic kidney disease Chronic kidney disease stage: on chronic dialysis Qualified Code(s): N18.6 - End stage renal disease; D63.1 - Anemia in chronic kidney disease; Z99.2 - Dependence on renal dialysis Status: Acute Code(s): D64.9 - Anemia, unspecified (15) Hyperphosphatemia: Status: Acute Code(s): E83.39 - Other disorders of phosphorus metabolism (16) COPD (chronic obstructive pulmonary disease): Qualifiers: COPD type: unspecified COPD Qualified Code(s): J44.9 - Chronic obstructive pulmonary disease, unspecified Status: Acute Code(s): J44.9 - Chronic obstructive pulmonary disease, unspecified (17) Bifascicular block: Status: Chronic Code(s): I45.2 - Bifascicular block Plan MEDICAL: 1. ESRD on maintenance HD HD schedule: TTS, last session: Access: Right arm fistula, good thrill Volume Status: below dry weight HD tomorrow with goals: duration/ UF: 3.5 hrs, 2K bath, we will reduce the UF due to hypotension 2. Electrolyte Management: Hyperkalemia: Potassium seems to be much better As needed [facility] Metabolic bone disorder: continue sevelamer 800 mg TID with meals dietary phosphate restriction less than 1g/day Pending Vitamin D level and elevated PTH levels 3. Anemia of ESRD: HGB 9 , Ferritin: 1560 Iron levels: 29 TIBC:224 Erythropoietin 5000 units subcutaneous 3 times a week 4. Hypertension: Given the patient has post dialysis hypotension would recommend holding dose of carvedilol on Sunday morning until the dialysis is over. Stop metoprolol, do as needed midodrine 10mg for hypotension 02/07: continue current management and treatment plan. 02/08: continue current management and treatment plan. Reason for continued inpatient stay Substantial Risk for: rapid decompensation and other (aftercare and discharge planning complicated by medical conditions and OP needs for psych/medical care. Trying to identify resources and have plan to step down by Sunday. Declines [facility] treatment which would be complicated to obtain given ESRD and dyalysis needscandidate for ) Time Spent With Patient Time: Total time managing care of this patient today ____ minutes.
[2025-02-10 16:30] VITALS: O2SAT 98
[2025-02-10 20:22] VITALS: BP 99/55; PULSE 79; RESP 15; TEMP 37.2; O2SAT 97
[2025-02-10 21:17] VITALS: TEMP 37.1
[2025-02-11] MEDS: Sevelamer Carbonate Tablet 800 MG TABLET PO ×4 (08:34→19:54)
[2025-02-11] MEDS: Aspirin Enteric Coated 81 MG TABLET.DR PO (08:35)
[2025-02-11 09:00] VITALS: BP 131/78; PULSE 94; RESP 16; TEMP 36.9; O2SAT 95
--- NOTE | 2025-02-11 09:22 | HO.PSYCHPN ---
Subjective Subjective Date of Service: 02/11/25 Reason For Visit: depression w/ SI; Alcohol use + wd symptoms, Subjective Notes: Thompson Warning, Conditional Voluntary and 3 Day Healthcare Proxy: No Guardianship: No Medical Problems Affecting Mental Status: Yes Interim History: 02/11/25 No complaints or concerns. Still doesn't recall VNA agency and could not recall name of providers or location. Info obtained and SW was able to locate prescriber but not manager exchange. Patient requires VNA to return home and partner/GF has been reported to have her own personal difficulties and to not be fully reliable. Elder services will be called. He has shown improvements in mood and no SI, likely combination of psychiatric condition, medical management (receiving dyalysis on schedule), attention to vitals/medication/nursing and medical needs and no substance consumption Patient offered referral to program as OP, not very receptive thus far. Will continue to educate. Clear mentation this am. Will check with OT re: assessment results and supports recommended 02/10/25 Tolerating medications. Reports he is having a good day and feels ready to discharge home on Sunday. Objectively appears brighter. SW had difficulty getting in contact with his outpatient providers. They were obtained from pharmacy today. Patient can not tell me the name of VNA which team is trying to obtain to put services in place. Patient indicates the medications are helping he is no longer feeling as depressed he is future oriented and has a more optimistic outlook on the future. He denied suicidal and homicidal ideation plan or intent. He is in behavioral control. He states he plugs to refrain from drinking but does not want to go to a rehab. He says he does not have a sponsor. He reports he has a peer counselor. He presents without persecutory ideas or other delusions. He has no medical complaints to say. He is taking his medications the medications are starting to help. He reports depression is better. Denies SI. Denies AVH. It helps that I am not drinking. No psychosis. More visible on the unit. Medication Compliance: Yes Side effects from medications: No Attending Groups: Yes Review of Systems Acute medical concerns: Yes ESRD requiring Dyalysis, post dyalysis hypoT Medical Review of Systems: unchanged Review of Systems: Review of Systems Review of Systems no changes Constitutional: Reports no additional constitutional complaints Eyes: Reports as per HPI Reports as per HPI Cardiovascular: Reports as per HPI Respiratory: Reports as per HPI Gastrointestinal: Reports as per HPI Genitourinary: Reports as per HPI Musculoskeletal: Reports no additional musculoskeletal complaints Comments: Minimal orofacial mvts, has dentures, says told TD, seem less obvious than on admission. Patient on SGA and unable to recall history of antipsychotic treatment (lenght, medications) says he was told it is Tardive Dyskinesia Skin/Breast: Reports as per HPI Reports as per HPI and Reports Neuro-related abnormal movements Psychiatric: Reports depression (Improving symptoms and future oriented--no SI) and Reports other (endorses past symptoms suggesting psychotic episode) Endocrine: Reports as per HPI Hematologic/Lymphatic: Reports as per HPI Allergic/Immunologic: Reports as per HPI Mental Status Exam Mental Status Exam Patient Appearance: Appropriate Patient Orientation: Person, Place, Time and Situation (limited understanding/recall re: medical care/VNA/psychiatric providers) Level of Consciousness: Awake, Appropriate, Alert and Follows Commands Patient Behavior: Appropriate, Cooperative, Passive and Good Eye Contact Mood Description: Calm, Constricted and Depressed (reports much improvement, feels less depressed) Affect Description: Calm, Appropriate and Constricted (mild) Ability to Follow Directions: Good Speech Pattern: Clear, Impoverished, Coherent and Soft-Spoken Memory Description: Intact (no gross deficits in orientation/attn/recall) and Normal for Patient (no gross impairment but variable (less clear if no dialysis--also difficulty recalling names or locations of providers )) Hallucinations: None Delusions: Not Present Thought Process: Goal Oriented and Slowed Thinking Thought Content: negative for Flight of Ideas, positive for [place], positive for Goal Oriented, positive for Poverty of Content, positive for Slowed Thinking, positive for Logical, negative for Suicidal Ideation or negative for Homicidal Ideation Abnormal Motor Activity Signs and Symptoms: Psychomotor Retardation (less ) Judgement: Fair (limited to fair) Diagnostics Vital Signs (24Hr): Vital Signs - 24 hr 02/10/25 16:30 02/10/25 20:22 02/10/25 21:17 Temperature 99 F 98.8 F Pulse Rate 79 Respiratory Rate 15 Blood Pressure 99/55 L Pulse Oximetry 98 97 Oxygen Delivery Method Room Air Room Air BMI result Body Mass Index 25.6 Labs 02/05/25 19:35 02/05/25 07:16 Labs: ESRD Patient on dialysis-- has anemia of chronic dis Medications Medications Current Medications Acetaminophen (Acetaminophen 325 Mg Tablet) 650 mg PO Q6H PRN PRN Reason: Headache/Pain, Scale 1-10 Last Admin: 02/08/25 21:33 Dose: 650 mg Al Hydroxide/Mg Hydroxide (Magnesium Hydrox/Alum Hydrox 30 Ml Oral.Susp) 30 ml PO Q6H PRN PRN Reason: Heartburn/Nausea Aspirin (Aspirin Enteric Coated 81 Mg Tablet.) 81 mg PO DAILY [facility] Last Admin: 02/11/25 08:35 Dose: 81 mg Atorvastatin Calcium (Atorvastatin Calcium 80 Mg Tablet) 80 mg PO DAILY [facility] Last Admin: 02/11/25 08:36 Dose: 80 mg Carvedilol (Carvedilol 12.5 Mg Tablet) 12.5 mg PO TUTHSA@2100 [facility]; Protocol Last Admin: 02/10/25 20:38 Dose: Not Given Carvedilol (Carvedilol 12.5 Mg Tablet) 12.5 mg PO SUMOWEFR@0900,2100 [facility]; Protocol Last Admin: 02/11/25 08:49 Dose: 12.5 mg Clopidogrel Bisulfate (Clopidogrel Bisulfate 75 Mg Tablet) 75 mg PO DAILY [facility] Last Admin: 02/11/25 08:34 Dose: 75 mg Doxycycline Monohydrate (Doxycycline Monohydrate 100 Mg Capsule) 100 mg PO Q12H [facility] Stop: 02/14/25 08:01 Last Admin: 02/11/25 08:34 Dose: 100 mg Epoetin Jono-epbx 3,000 unit/ (Epoetin Jono-epbx 2,000 unit) 5,000 unit SUBCUT TuThSa@1645 [facility] Last Admin: 02/10/25 18:14 Dose: 5,000 unit Folic Acid (Folic Acid 1 Mg Tablet) 1 mg PO DAILY [facility] Last Admin: 02/11/25 08:35 Dose: 1 mg Hydroxyzine HCl (Hydroxyzine Hcl 50 Mg Tablet) 50 mg PO TID PRN PRN Reason: Anxiety Last Admin: 02/11/25 08:49 Dose: 50 mg Lamotrigine (Lamotrigine 25 Mg Tablet) 25 mg PO DAILY [facility] Last Admin: 02/11/25 08:35 Dose: 25 mg Melatonin (Melatonin 3 Mg Tablet) 9 mg PO BEDTIME [facility] Last Admin: 02/10/25 20:26 Dose: 9 mg Midodrine (Midodrine Hcl 2.5 Mg Tablet) 2.5 mg PO DAILY PRN PRN Reason: SBP<100 Last Admin: 02/05/25 16:53 Dose: 2.5 mg Midodrine (Midodrine Hcl 10 Mg Tablet) 10 mg PO TuThSa@1645 PRN PRN Reason: Dialysis hypotension Olanzapine (Olanzapine 10 Mg Tablet) 10 mg PO BID [facility] Last Admin: 02/11/25 08:35 Dose: 10 mg Sertraline HCl (Sertraline Hcl 100 Mg Tablet) 200 mg PO DAILY [facility] Last Admin: 02/11/25 08:35 Dose: 200 mg Sevelamer Carbonate (Sevelamer Carbonate Tablet 800 Mg Tablet) 800 mg PO QIDWMHS [facility] Last Admin: 02/11/25 08:34 Dose: 800 mg Sodium Zirconium Cyclosilicate (Sodium Zirconium Cyclosilicate 5 Gm Powd.Pack) 5 gm PO DAILY@0700 PRN PRN Reason: Hyperkalemia Thiamine HCl (Thiamine Hcl 100 Mg Tablet) 100 mg PO DAILY [facility] Last Admin: 02/11/25 08:34 Dose: 100 mg Trazodone HCl (Trazodone Hcl 50 Mg Tablet) 50 mg PO BEDTIME MRX1 PRN PRN Reason: Insomnia Last Admin: 02/10/25 20:32 Dose: 50 mg Allergies Allergies Allergy/AdvReac Type Severity Reaction Status Date / Time No Known Allergies Allergy Verified 02/04/25 14:00 Assessment & Plan Assessment & Plan (1) Major depression, recurrent, chronic: Status: Acute Code(s): F33.9 - Major depressive disorder, recurrent, unspecified Assessment and Plan: Continue current medication regime, showing improvement and no longer SI (2) Alcohol use disorder, severe, dependence: Status: Acute Code(s): F10.20 - Alcohol dependence, uncomplicated Assessment and Plan: GISSELLE thomas'misty groups,motivational interviewing/psychoeducation. declined referral to rehab-? IOP (3) Alcohol withdrawal: Qualifiers: Complication of substance-induced condition: uncomplicated Qualified Code(s): F10.930 - Alcohol use, unspecified with withdrawal, uncomplicated Status: Acute Code(s): F10.939 - Alcohol use, unspecified with withdrawal, unspecified Assessment and Plan: Resolved (4) Cocaine use disorder: Status: Acute Code(s): F14.10 - Cocaine abuse, uncomplicated Assessment and Plan: groups,motivational interviewing/psychoeducation (5) End stage renal disease: Status: Acute Code(s): N18.6 - End stage renal disease (6) CKD (chronic kidney disease) requiring chronic dialysis: Status: Acute Code(s): N18.6 - End stage renal disease; Z99.2 - Dependence on renal dialysis (7) Nicotine dependence with current use: Status: Acute Code(s): F17.200 - Nicotine dependence, unspecified, uncomplicated Assessment and Plan: NRT, education (8) HTN (hypertension): Qualifiers: Hypertension type: unspecified Qualified Code(s): I10 - Essential (primary) hypertension Status: Chronic Code(s): I10 - Essential (primary) hypertension Assessment and Plan: f/u per medical team, cont antihypertensive meds (9) Non compliance with medical treatment: Status: Acute Code(s): Z91.199 - Patient's noncompliance with other medical treatment and regimen due to unspecified reason Assessment and Plan: Has been compliant with treatment in IP unit and retracted 3 day and agreed to stay until Sunday to allow transition to community and after care. Patient has VNA and SW trying to connect to arrange services and to schedule f/u and aftercare MD called [facility] to discuss dx/tx for psych issues and to clarify patient report he has TD. On hold for 15 minutes w/o response, unable to continue at this point Prescriber for medical and psychiatric needs respectively Akin Christianson [employer] and Debra Sullivan NP at [facility] at [phone] Also per pharmacy: Genevieve Hernandez MD [phone] Call placed to Dr. Hernandez number which is at [facility] () [facility] in [place], [place]- a dialysis clinic. Connected w/ wire charger--option3--Informed that patient from [place] most likely likely at [place] location and given number for Dr Hernandez/[place] location [phone] or [phone]. Left message asking for call back I called [facility] to discuss/coord care with psych prescriber to clarify if patient has prior dx TD. Patient cannot recall what/if he has been prescribed antipsychotics for a long time or not and any names of AP medications. out of concern second antipsychotic has been held and patient is improviing without requiring 2 neuroleptics. I was on hold for 15 minutes w/o response, unable to cdo longer (10) Dialysis patient: Status: Acute Code(s): Z99.2 - Dependence on renal dialysis (11) Healthcare-associated pneumonia: Status: Acute Code(s): J18.9 - Pneumonia, unspecified organism Assessment and Plan: Doxicycline re-ordered (started in ED) and evaluated by medical team/medical [employer]ER for futher tx (12) Alcoholic fatty liver: Status: Acute Code(s): K70.0 - Alcoholic fatty liver (13) Tachycardia: Status: Acute Code(s): R00.0 - Tachycardia, unspecified (14) Anemia: Qualifiers: Anemia type: due to chronic kidney disease Chronic kidney disease stage: on chronic dialysis Qualified Code(s): N18.6 - End stage renal disease; D63.1 - Anemia in chronic kidney disease; Z99.2 - Dependence on renal dialysis Status: Acute Code(s): D64.9 - Anemia, unspecified Assessment and Plan: Anemia chronic disease (15) Hyperphosphatemia: Status: Acute Code(s): E83.39 - Other disorders of phosphorus metabolism (16) COPD (chronic obstructive pulmonary disease): Qualifiers: COPD type: unspecified COPD Qualified Code(s): J44.9 - Chronic obstructive pulmonary disease, unspecified Status: Acute Code(s): J44.9 - Chronic obstructive pulmonary disease, unspecified (17) Bifascicular block: Status: Chronic Code(s): I45.2 - Bifascicular block Plan MEDICAL: 1. ESRD on maintenance HD HD schedule: TTS, last session: Access: Right arm fistula, good thrill Volume Status: below dry weight HD tomorrow with goals: duration/ UF: 3.5 hrs, 2K bath, we will reduce the UF due to hypotension 2. Electrolyte Management: Hyperkalemia: Potassium seems to be much better As needed Lokelma Metabolic bone disorder: continue sevelamer 800 mg TID with meals dietary phosphate restriction less than 1g/day Pending Vitamin D level and elevated PTH levels 3. Anemia of ESRD: HGB 9 , Ferritin: 1560 Iron levels: 29 TIBC:224 Erythropoietin 5000 units subcutaneous 3 times a week 4. Hypertension: Given the patient has post dialysis hypotension would recommend holding dose of carvedilol on Sunday mornings until the dialysis is over. Stop metoprolol, do as needed midodrine 10mg for hypotension 02/07: continue current management and treatment plan. 02/08: continue current management and treatment plan. Reason for continued inpatient stay Substantial Risk for: harm to self, inability to function, rapid decompensation and med/psych decompensation Time Spent With Patient Time: Total time managing care of this patient today 50____ minutes. Med review, coord care with tx team, collateral info/calls, face to face with patient
--- NOTE | 2025-02-11 13:07 | PC.NURSE ---
The security cameras were watched for evidence of pt's belongings by management. There was no evidence of a duffel bag on the security cameras from the ambulance bay to the unit.
[2025-02-11 13:54] LABS: Vitamin D 25-OH, D2 <4 ng/mL; Vitamin D 25-OH, D3 19 ng/mL; Vitamin D 25-OH, Total 19 ng/mL (30-100)
[2025-02-11 19:53] VITALS: BP 78/50; PULSE 85; RESP 15; TEMP 36.9; O2SAT 99
[2025-02-11 19:55] VITALS: BP 78/50
[2025-02-11 21:21] VITALS: BP 94/55
[2025-02-12 06:32] VITALS: BMI 26.1
[2025-02-12] MEDS: Sevelamer Carbonate Tablet 800 MG TABLET PO ×3 (12:21→21:07)
[2025-02-12] MEDS: Aspirin Enteric Coated 81 MG TABLET.DR PO (12:21)
--- NOTE | 2025-02-12 13:23 | PC.NURSE ---
Patient out to dialysis at AM, back about 12:00. Upon arrival VS: 98.0, 79, 121/67, O2sat 100% on RA. Patient feeling tired but denies pain. Took his meds and after lunch went to rest in his bed. Dialysis port on R.chest, dressing dry and intact. AV fistula in R.arm, +B/T. Sushant endorses anxiety and depression at 8/10. Denies SI,HI,AVH. He is calm, flat affect, pleasant. No behavioral concerns noted. Will continue to monitor.
[2025-02-12 21:00] VITALS: BP 117/55; PULSE 93; RESP 16; TEMP 36.6; O2SAT 98
[2025-02-12 21:08] VITALS: BP 117/55; PULSE 93
[2025-02-13 08:00] VITALS: BP 119/58; PULSE 88; RESP 16; TEMP 37.1; O2SAT 95
[2025-02-13] MEDS: Aspirin Enteric Coated 81 MG TABLET.DR PO (08:16)
[2025-02-13] MEDS: Sevelamer Carbonate Tablet 800 MG TABLET PO (08:16)
[2025-02-13 09:35] VITALS: BP 119/58; PULSE 88
--- NOTE | 2025-02-13 10:26 | PM.PSYDC ---
DS: Providers Provider Date of Service: 02/13/25 Date of admission: 02/04/25 13:36 Date of discharge: 02/13/25 Admitting clinician: Azalia Nolasco Attending physician on admission: Azalia Nolacso Consults: 02/04/25 16:29 Consult to Hospitalist Routine Comment: Consulting Provider: [facility] Reason For Exam: admission physical, dyalisis patient 02/04/25 16:35 Consult to Nephrology Routine Consulting Provider: [facility] Reason for consultation: patient with CKD on dyalisis--Evaluation/management Attending physician on discharge: Azalia Nolasco Discharging clinician: Azalia Nolasco DS: Diagnosis Discharge Diagnosis (1) Major depression, recurrent, chronic: Status: Resolved (2) Alcohol use disorder, severe, dependence: Status: Acute (3) Alcohol withdrawal: Status: Resolved (4) Cocaine use disorder: Status: Acute (5) End stage renal disease: Status: Acute (6) CKD (chronic kidney disease) requiring chronic dialysis: Status: Acute (7) Nicotine dependence with current use: Status: Acute (8) HTN (hypertension): Status: Chronic (9) Non compliance with medical treatment: Status: Acute (10) Dialysis patient: Status: Acute (11) Healthcare-associated pneumonia: Status: Resolved (12) Alcoholic fatty liver: Status: Acute (13) Tachycardia: Status: Resolved (14) Anemia: Status: Acute (15) Hyperphosphatemia: Status: Acute (16) COPD (chronic obstructive pulmonary disease): Status: Acute (17) Bifascicular block: Status: Chronic DS: Medications Discharge Medications Home Medications: Previous Rx's ?Medication ?Instructions ?Recorded aspirin 81 mg tablet,delayed 81 mg PO DAILY #30 tabs 02/13/25 release atorvastatin 80 mg tablet 80 mg PO DAILY #30 tabs 02/13/25 carvedilol 12.5 mg tablet 12.5 mg PO BIDWMEAL #60 tabs 02/13/25 clopidogrel 75 mg tablet 75 mg PO DAILY #30 tabs 02/13/25 epoetin naif-epbx 2,000 unit/mL 5,000 unit (2.5 mL) subcut 02/13/25 injection solution TuTa@1645 #2.5 mL hydroxyzine HCl 50 mg tablet 50 mg PO TID PRN Anxiety #90 tabs 02/13/25 hydroxyzine HCl 50 mg tablet 50 mg PO TID PRN anxiety #90 tabs 02/13/25 lamotrigine 25 mg tablet 25 mg PO DAILY #30 tabs 02/13/25 midodrine 10 mg tablet 10 mg PO TuThSa@1645 PRN Dialysis 02/13/25 Hypotension #12 tabs midodrine 2.5 mg tablet 2.5 mg PO DAILY PRN SBP<100 #30 02/13/25 tabs olanzapine 10 mg tablet 10 mg PO BID #60 tabs 02/13/25 sertraline 100 mg tablet 200 mg (2 x 100 mg) PO DAILY #60 02/13/25 tabs sevelamer carbonate 800 mg tablet 800 mg PO QIDWMHS #64 tabs 02/13/25 sevelamer carbonate 800 mg tablet 800 mg PO QIDWMHS #64 tabs 02/13/25 sodium zirconium cyclosilicate 5 5 g PO DAILY #30 ea 02/13/25 gram oral powder packet (Lokelma) sodium zirconium cyclosilicate 5 5 g PO DAILY@0700 PRN Hyperkalemia 02/13/25 gram oral powder packet (Lokelma) #30 ea trazodone 50 mg tablet 50 mg PO BEDTIME MRX1 PRN Insomnia 02/13/25 #30 tabs Data Data Completed and Pending Completed studies during hospitalization [Text1]: 02/05/25 19:35 25-OH Vitamin D Total 19 L 25-Hydroxy Vitamin D2 <4 25-Hydroxy Vitamin D3 19 02/06/25 00:52 Blood - Venous Blood Culture - Final No growth after 5 days. 02/06/25 00:52 Blood - Venous Blood Culture - Final No growth after 5 days. DS: Summary Hospital Course Hospital Course: 65 yo male transferred from [facility] for depression and SI, in the setting of alcohol use d/o and numerous medical comorbidities among them CKD on dialysis (recently said to have missed dialysis, left ED AMA on 02/02 while pending medical admission. Patient returned to ED on 02/03/15. He reported depression and SI and was placed on section 12 and deemed in need for psychiatric hospitalization for treatment, stabilization on psychiatric condition, safe alcohol detoxification and medical/nephrology management. Patient drinks daily, consumes cocaine which he reports occasionally. Last alcohol 02/03/25. States he doesn't recall last use of cocaine, although referral documents indicate regular use. Patient reports chronic depressive symptoms with episodes of recrudescence that escalates to SI, and wish to kill self. He cannot identify specific precipitants, or any association with medical issues (ie, hydroelectrolytic/metabolic imbalances and/or use of substances. Patient reports current depression at 9/10 and SI but no current plan/intent to harm self or thought of harming others. He endorsed past symptoms of psychosis ([facility] referring to him in past). Poor sleep, hopeless, helplessness, refusal of medical care. He states he has tardive diskinesia but cannot say who diagnosed him or under what circumastances. He says Olanzapine works for him and stabilizes him but superficial as to how. Past Psychiatric History: Per patient sxs depression present since youth. Reports depression sxs have varied in intensity and when severe he becomes hopeless, feels helpless, experiences feelings of despair, feels nothing is worth and has passive and/or active SI with plan/intent. Endorses prior treatment w/ antipsychotics (can't recall name, presents with orofacial movements and states he was told maybe tardive dyskinesia. Patient also endorsed remote past symptoms suggestive of psychosis such as ideas of reference. Patient did not report past hospitalizations and details of treatment. Patient admitted to [facility], monitored for safety, assessed by psychiatry and medical teams. He underwent dialysis on schedule, with low BP following procedure, managed per medical recommendations. Patient indicated he was not completely compliant with dialysis and with medications which were resumed with the exception of Brexiprazole, given patient reporting diagnosis of TD and orofacial movements that suggested this was likely. Alcohol detoxification protocol with Ativan was completed without incident. patient's mental status improved significantly. [facility] contacted to obtain collateral info and coordinate for dc. Patient was offered referrals for [facility] treatment which he refused insisting that he would continue to avoid substances. I obtained name and numbers for [providers (nephrologis and psychiatric prescriber) and left messages at clinic and to coordinate care and clarify patient's report of TD. I did not receive calls back. SW made arrangements for VNA, case management, dialysis and medical/psychiatric care for patient Patient remained safe in the unit, tolerated detox, compliad with meds. symptoms impreoved and he was safe to return to community. Time spent discussing smoking cessation with patient: more than 10 minutes Status at Discharge Functional status at discharge: independent ambulation Overall status at discharge: patient is back to baseline Time Spent with Patient Time attestation: Total time managing care of this patient today __50__ minutes. Discharge Plan Discharge Anticipated Discharge Date/Time: 02/13/25 09:17 Patient Disposition: Home Health Service Discharge Diagnosis: MDD recurrent; Alcohol use do, alcohol w/d; cocaine use do; nicotine use do; ESRD with dialysis Referrals: Ketan Mosley MD, MPH [Other] - 02/27/25 11:30 am Referral Note: You will see instead of your usual PCP Akin Christianson due to some scheduling conflicts. You will see via telehealth on Feb.27 at 11:30AM. If you need to cancel or reschedule the appointment please call the number listed Debra Sullivan NP [Other] - 03/06/25 3:00 pm Referral Note: Debra will see you via telehealth on at 9:15 AM. If you need to reschedule or cancel the appointment please call the number listed. [facility] - [facility]-5 Days Referral Note: You [facility] Nursing services will restart on your normal schedule. If you need to change this please call the number listed. [facility] [Other] - 02/14/25 12:15 pm Referral Note: Your usual Dialysis appointment will be this wednesday 02/14 at 12:15. They ask for you to be there by 12:00. They have also put in a PT1 form for transportation services for you in the future. Please call [employer] and give them the authorization number [id number]. They will help you schedule form there. Please be aware that due to the holiday next week yoru dialysis will be Mon,Weds,Sat for hust next week. Discharge Medications: New trazodone 50 mg Tablet 50 mg PO BEDTIME MRX1 PRN (Reason: Insomnia) Qty: 30 0RF aspirin 81 mg Tablet,Delayed Release (Dr/Ec) 81 mg PO DAILY Qty: 30 0RF atorvastatin 80 mg Tablet 80 mg PO DAILY Qty: 30 0RF sertraline 100 mg Tablet 200 mg PO DAILY Qty: 60 0RF olanzapine 10 mg Tablet 10 mg PO BID Qty: 60 0RF clopidogrel 75 mg Tablet 75 mg PO DAILY Qty: 30 0RF lamotrigine 25 mg Tablet 25 mg PO DAILY Qty: 30 0RF sevelamer carbonate 800 mg Tablet 800 mg PO QIDWMHS Qty: 64 0RF Lokelma 5 gram Powder In Packet 5 g PO DAILY@0700 PRN (Reason: Hyperkalemia) Qty: 30 0RF hydroxyzine HCl 50 mg Tablet 50 mg PO TID PRN (Reason: Anxiety) Qty: 90 0RF midodrine 2.5 mg Tablet 2.5 mg PO DAILY PRN (Reason: SBP<100) Qty: 30 0RF midodrine 10 mg Tablet 10 mg PO TuThSa@1645 PRN (Reason: Dialysis Hypotension) Qty: 12 0RF epoetin naif-epbx 2,000 unit/mL Solution 5,000 unit subcut TuThSa@1645 Qty: 2.5 12RF carvedilol 12.5 mg Tablet 12.5 mg PO TuThSa@2100 Qty: 12 0RF Protocol: Hold for SBP/HR < HOLD for SBP < : 90 HOLD for HR < : 60 carvedilol 12.5 mg Tablet 12.5 mg PO TUTHSA@2100 Qty: 0 0RF Protocol: Hold for SBP/HR < HOLD for SBP < : 110 HOLD for HR < : 60 carvedilol 12.5 mg Tablet 12.5 mg PO SUMOWEFR@0900,2100 Qty: 32 0RF Protocol: Hold for SBP/HR < HOLD for SBP < : 110 HOLD for HR < : 60 Continued carvedilol 12.5 mg tablet 12.5 mg PO BIDWMEAL Qty: 60 0RF hydroxyzine HCl 50 mg tablet 50 mg PO TID PRN (Reason: anxiety) Qty: 90 0RF sevelamer carbonate 800 mg tablet 800 mg PO QIDWMHS Qty: 64 0RF Discontinued atorvastatin 80 mg tablet 80 mg PO DAILY melatonin 3 mg tablet 9 mg PO BEDTIME clopidogrel 75 mg tablet 75 mg PO DAILY aspirin 81 mg tablet,delayed release (DR/EC) 81 mg PO DAILY acetaminophen 500 mg tablet 500 mg PO Q6H PRN (Reason: pain) lamotrigine 25 mg tablet 25 mg PO DAILY folic acid 1 mg tablet 1 mg PO DAILY gabapentin 100 mg capsule 100 mg PO DAILY metoprolol tartrate 25 mg tablet 25 mg PO DAILY Lokelma 5 gram powder in packet 5 g PO DAILY trazodone 50 mg tablet 50 mg PO BEDTIME sertraline 100 mg tablet 200 mg PO DAILY olanzapine 10 mg tablet 10 mg PO BID pantoprazole 40 mg tablet,delayed release (DR/EC) 40 mg PO BID midodrine 2.5 mg tablet 2.5 mg PO NEEDED PRN (Reason: SBP<100) Rexulti 3 mg tablet 3 mg PO DAILY Discharge Orders: Discharge Order (Routine); Ordered 02/13/25 Ordered By: Azalia Nolasco Diet: renal Activity on Discharge: As tolerated Stand Alone Forms: Patient Portal Discharge page, Community Support Print Language: Khmer Care Plan Goals: no SI, continue medications, attend medical and psychiaatric appts included dyalisis, attend AA Health Concerns: follow yp w/nephrology and PCP, attend dialysis Plan of Treatment: continue medications, attend medical and psychiaatric appts included dyalisis, attend AA Assessment: In good spirits, euthymic, calm, no behavioreal issues, no SI/HI/ or psychotic symptoms Discharge Date/Time: 02/13/25 11:51
--- NOTE | 2025-02-13 10:54 | P.PNNP_ITS ---
Subjective Subjective Date of Service: 02/13/25 Interval history: receiving HD as per TTS schedule, last HD yesterday Physical Exam 2 Vital Signs: Vital Signs: Last Vital Signs Temp 98.7 F 02/13/25 08:00 Pulse 88 02/13/25 09:35 Resp 16 02/13/25 08:00 BP 119/58 L 02/13/25 09:35 Pulse Ox 95 02/13/25 08:00 O2 Del Method Room Air 02/13/25 08:00 BMI result Body Mass Index 26.1 General: not in any acute distress, ill appearing Nutritional Appearance: well nourished and overweight Eyes: appearance normal, both eyes and all related structures; Alignment and Position: alignment normal and position normal Neck: No lymphadenopathy, no thyromegaly Resp: bilateral air entry equal, no added sounds present Cardio: Regular rate, regular rhythm; Heart sounds: S1 normal heart sound present and S2 normal heart sound present GI: soft, nontender, no guarding, no hepatosplenomegaly : bladder normal to inspection, bladder normal to palpation, no renal angle tenderness Skin: no rashes or lesions noted and elasticity normal Neuro: alert, oriented x 3, moves all extremities Objective Data Labs 02/05/25 19:35 02/05/25 07:16 Microbiology Microbiology Results: Microbiology 02/06/25 00:52 Blood - Venous Blood Culture - Final No growth after 5 days. 02/06/25 00:52 Blood - Venous Blood Culture - Final No growth after 5 days. Procedures Date of Service Date of Service: 02/13/25 Assessment & Plan Assessment and plan (1) HTN (hypertension): Status: Chronic (2) Hypotension of hemodialysis: Status: Acute (3) End stage renal disease: Status: Acute Plan 1. ESRD on maintenance HD HD schedule: TTS, last session: ; underwent HD yesterday morning Access: Right arm fistula, good thrill Volume Status: below dry weight HD today with goals: duration/ UF: 3.5 hrs, 2K bath, UF 1 litres. will continue TTS schedule as long as patient is hospitalized 2. Electrolyte Management: Hyperkalemia: Lokelma as needed Hypocalcemia: low Vitamin D levels,PTH levels 2126 will add calcitriol 0.25mcg Hyperphosphatemia: continue sevelamer 800 mg TID with meals dietary phosphate restriction less than 1g/day 3. Anemia of ESRD: Hb 9.2, Ferritin: 1561 Iron levels: 29 TIBC:224 continue erythropoetin 5k unit thrice a week 4. Hypertension: continue carvedilol 12.5 mg b.i.d to be given after dialysis on TTS as needed midodrine for hypotension Thanks for your consult, we will continue to follow up this patient along with you. Time Spent With Patient Time: Total time managing care of this patient today ____ minutes. Progress Note: Quality Stroke Does the patient have a stroke diagnosis?: No
--- NOTE | 2025-02-13 12:06 | PC.NURSE ---
Patient was aware of his discharge today, reported readiness for discharge. D/C instructions given to the patient. Per management there is no evidence of pt's belongings. Sushant left the unit at 11:51 via [employer].
== END 2025-02-13 11:51 | disposition home health service (06) | DRG 885 ==
PROVIDERS: Internal Medicine; Internal Medicine Critical Care Medicine; Admitting Provider Psychiatry & Neurology Forensic Psychiatry; Visit Provider Psychiatry & Neurology Forensic Psychiatry
DX: F33.9 Major depressive disorder, recurrent, unspecified (principal); N18.6 End stage renal disease; J18.9 Pneumonia, unspecified organism; I12.0 Hypertensive chronic kidney disease with stage 5 chronic kidney disease or end stage renal disease; J44.0 Chronic obstructive pulmonary disease with (acute) lower respiratory infection; F10.20 Alcohol dependence, uncomplicated; K70.0 Alcoholic fatty liver; D63.1 Anemia in chronic kidney disease; E78.5 Hyperlipidemia, unspecified; I25.10 Atherosclerotic heart disease of native coronary artery without angina pectoris; F19.10 Other psychoactive substance abuse, uncomplicated; E83.51 Hypocalcemia; E87.5 Hyperkalemia; E83.39 Other disorders of phosphorus metabolism; I95.3 Hypotension of hemodialysis; N40.0 Benign prostatic hyperplasia without lower urinary tract symptoms; Z99.2 Dependence on renal dialysis; Z91.158 Patient's noncompliance with renal dialysis for other reason; F17.210 Nicotine dependence, cigarettes, uncomplicated; Z71.6 Tobacco abuse counseling; Z79.02 Long term (current) use of antithrombotics/antiplatelets; Z79.82 Long term (current) use of aspirin; Z79.899 Other long term (current) drug therapy
CPT/HCPCS: 36415; 80053; 80061; 82306; 82728; 83036; 83540; 83605; 83970; 84100; 85025; 87040; 90999; 93005; P9047; Q5106

== ENCOUNTER 2025-02-04 13:36 | Outpatient (BNV) | payer MEDICARE, MEDICAID, SELFPAY | END 2025-02-04 19:58 | PROVIDERS: Admitting Provider Psychiatry & Neurology Forensic Psychiatry; Visit Provider Internal Medicine Cardiovascular Disease | DX: I45.10 Unspecified right bundle-branch block (principal) | CPT/HCPCS: 93010 ==

== ENCOUNTER → 2025-02-04 13:36 | Outpatient (BNV) | payer MEDICARE, MEDICAID, SELFPAY | PROVIDERS: Admitting Provider Psychiatry & Neurology Forensic Psychiatry; Visit Provider Nurse Practitioner Family | DX: I12.0 Hypertensive chronic kidney disease with stage 5 chronic kidney disease or end stage renal disease (principal); N18.6 End stage renal disease | CPT/HCPCS: 99221 ==

== ENCOUNTER → 2025-02-04 13:36 | Outpatient (BNV) | payer MEDICARE, MEDICAID, SELFPAY | PROVIDERS: Admitting Provider Psychiatry & Neurology Forensic Psychiatry; Visit Provider Psychiatry & Neurology Forensic Psychiatry | DX: F33.2 Major depressive disorder, recurrent severe without psychotic features (principal); F10.20 Alcohol dependence, uncomplicated; F14.10 Cocaine abuse, uncomplicated; F17.200 Nicotine dependence, unspecified, uncomplicated; Z91.199 Patient's noncompliance with other medical treatment and regimen due to unspecified reason | CPT/HCPCS: 99231 ==

== ENCOUNTER → 2025-02-04 13:36 | Outpatient (BNV) | payer MEDICARE, MEDICAID, SELFPAY | PROVIDERS: Admitting Provider Psychiatry & Neurology Forensic Psychiatry; Visit Provider Internal Medicine Critical Care Medicine | DX: N18.6 End stage renal disease (principal); D64.9 Anemia, unspecified; E83.39 Other disorders of phosphorus metabolism | CPT/HCPCS: 90935; 99223; 99233 ==